=== PATIENT | female | born 1945 | race Caucasian/White ===

== ENCOUNTER → 2017-08-14 | Outpatient (CLI) | payer OTHER ==
[~2017-08-14] MED LIST: ASPI81TA28 PO; BNC5 PO; CALCTAB5 PO; DILT120C68 PO; ENOX100I SQ; EZET10TA63 PO; FLUO20CA35 PO; FRS/40 PO; HYDR-5688 PO; INSDGI SC; MAGN400T6 PO; NVLGI SC; OMEG10007 PO; POTA20TA16 PO; PRAV80TA PO; PRLSR20 PO; TRAZ50TA35 PO; TYLOTC500 PO; WARF2.5T8 PO; WARF5TAB7 PO
[2017-08-15 06:36] LABS: ESTIMATED AVERAGE GLUCOSE 143 mg/dl; HA1C FLAG Normal (Normal)
== END | disposition home or self-care (01) ==
LOC: C.LABPBG 13:53
PROVIDERS: ATTEND Nurse Practitioner Family
DX: E11.65 Type 2 diabetes mellitus with hyperglycemia (principal)

== ENCOUNTER → 2018-04-14 | Outpatient (CLI) | payer OTHER ==
[~2018-04-14] MED LIST changes: +POTA-639 PO; -POTA20TA16 PO
[2018-04-15 06:14] LABS: HEMOGLOBIN A1C 7.3 % (4.5-5.6)
== END | disposition home or self-care (01) ==
LOC: C.LABPBG 13:06
PROVIDERS: ATTEND Nurse Practitioner Family
DX: E11.65 Type 2 diabetes mellitus with hyperglycemia (principal)

== ENCOUNTER 2023-09-01 20:30 | Inpatient (IN) ==
[2023-09-01] MEDS ORDERED: Patient's HEIGHT &/or WEIGHT Needed SCH (20:34)
[2023-09-01 21:12] LABS: Base Excess VBG 5.5 mEq/L; HCO3 VBG 32 mmol/L; Oxygen Saturation VBG 72.5 %; PCO2 VBG 51 mmHg (38-50); PO2 VBG 42 mmHg
[2023-09-01] MEDS ORDERED: ALBUT/IPRATROP 3MG/0.5MG NEB 3 ML VIAL NEB STA (21:18)
--- NOTE | 2023-09-01 21:19 | Emergency Department Note ---
Impression & Plan Acute dyspnea, Acute hyperkalemia, JORGE (acute kidney injury) ED Provider Note HISTORY OF PRESENT ILLNESS: Patient is an 78-year-old female presenting with shortness of breath. Patient reports that she has been feeling more short of breath over the last few days, but tonight her shortness of breath got significantly worse. She has had a cough productive of white sputum. Denies any chest pain with the shortness of breath. Reports that she wears 2 to 4 L at baseline but has been wearing 3 for the last few days. Denies any recent steroid use. Denies any recent antibiotic use. Denies any DVT or PE history. She is on Coumadin for history of mitral valve replacement. She reports she tested positive on a home COVID test 3 days ago. Denies any fevers. Denies any recent sick contact exposures. ROS: as above PHYSICAL EXAM: Constitutional: Patient appears in no acute distress. HENT: Head: Normocephalic and atraumatic. Eyes: EOMI, PERRL Mouth/Throat: Mucous membranes moist. Neck: Trachea midline. Neck supple. Cardiovascular: RRR, No rubs or gallops. Intact distal pulses. Pulmonary/Chest: No respiratory distress. Breath sounds clear and equal bilaterally. Coarse breath sounds bilaterally. Abdominal: Abdomen soft, no tenderness, rebound or guarding. Musculoskeletal: No edema, tenderness or deformity noted. Skin: Warm and dry. No rash, erythema, pallor or cyanosis Psychiatric: Appropriate mood and affect for situation. Neurological: Alert and keenly responsive. CN II-XII grossly intact, moving all extremities equally and fully. MDM: - Vitals signs stable. - History obtained via patient. Patient presents with shortness of breath. Patient reports has been feeling progressively more short of breath in the last few days. Reports that tonight her breathing was significantly worse. Has had a cough productive of white sputum. Denies any DVT or PE history. She is on Coumadin. She states she tested positive for COVID on a home test 3 days ago. Denies any recent sick contact exposures. She denies any recent antibiotic or steroid use. Denies any chest pain. - Chronic conditions affecting care: Afib; CAD (s/p PCI); cardiac pacemaker; chronic diastolic heart failure - Differential diagnoses include, but are not limited to: Congestive heart failure; acute coronary syndrome; COPD/asthma exacerbation; pulmonary edema; pulmonary embolism; pneumonia; pneumothorax; viral syndrome - Order placed for continuous cardiac monitoring. At this time, monitor showed rate of 70 bpm with paced rhythm, per my interpretation. - External medical records reviewed. Heart failure visit note dated 09/09/2019 was reviewed. Patient follows in their clinic for chronic diastolic heart failure. She is on 80 mg of Lasix daily. - EKG interpreted by myself showed ventricular paced rhythm. - Laboratory workup interpreted by myself showed normal WBC; hyperkalemia (K 5.3); JORGE (Cr 1.68 - baseline around 1.0); normal troponin; elevated BNP (166) - CXR showed some pulmonary vascular congestion, per my interpretation - POC COVID negative. Biofire ordered. - Patient given duoneb and 125 mg IV solumedrol in ER. - Patient's oxygen requirement increased while in the emergency department and she was wearing 7L via face mask. - Discussion was had with lawn caretaker about patient's case and need for admission - Hospitalist, Dr. Orellana, consulted for admission - Patient admitted to [facility] for further evaluation and management. ASSESSMENT AND PLAN: Diagnosis: dyspnea; JORGE; hyperkalemia Plan: admit Past Med/Surg History Medical History (Updated 09/02/23 @ 00:10 by Tracy Flor MD) Presence of arterial stent Diabetes mellitus Atrial fibrillation Chronic renal failure, stage 3 (moderate) Pacemaker Surgical History (Updated 12/09/19 @ 11:15 by Liliana Gupta PA-C) Previous back surgery H/O: section History of cholecystectomy Hx of CABG H/O: hysterectomy H/O mitral valve replacement Family History (Updated 12/09/19 @ 11:17 by Liliana Gupta PA-C) Mother Hypertension Hyperlipemia Diabetes Stroke Father Stroke Social History Smoking Status: Former smoker Tobacco Type: Cigarettes Preferred Language: Portuguese Feels Safe at Home: Yes Allergies Allergies Allergy/AdvReac Type Severity Reaction Status Date / Time morphine Allergy Unknown vomiting Unverified 09/09/19 16:12 oxycodone Allergy Unknown vomiting Unverified 09/09/19 16:12 adhesive tape AdvReac Unknown Verified 09/09/19 16:12 codeine AdvReac Unknown Verified 09/09/19 16:12 aspirin AdvReac Verified 09/09/19 16:12 Bandaid AdvReac Unknown Uncoded 09/09/19 16:12 Darvocet-N 50 TABS AdvReac Uncoded 09/09/19 16:12 Home Meds Home Medications Medication Instructions Recorded Confirmed fluoxetine 20 mg capsule 20 mg PO DAILY 12/12/18 09/09/19 hydrocodone 5 mg-acetaminophen 325 1 tab PO TID PRN Pain 12/12/18 09/09/19 mg tablet insulin aspart U-100 100 unit/mL 10 units subcut ACHS 12/12/18 09/09/19 subcutaneous solution (Novolog U-100 Insulin aspart) lisinopril 10 mg tablet 10 mg PO DAILY 12/12/18 09/09/19 magnesium oxide 400 mg PO BID 12/12/18 09/09/19 naloxegol 25 mg tablet (Movantik) 25 mg PO DAILY 12/12/18 09/09/19 omeprazole 20 mg capsule,delayed 20 mg PO DAILY 12/12/18 09/09/19 release potassium chloride 20 mEq 20 mg PO DAILY 12/12/18 09/09/19 tablet,extended release(part/cryst) trazodone 50 mg tablet 50 mg PO DAILY 12/12/18 09/09/19 calcium carbonate [Calcium 600] See Rx Instructions PO BID 04/20/19 09/09/19 multivitamin (Multiple Vitamins 1 tab PO DAILY 04/20/19 09/09/19 tablet) omega-3 fatty acids [Fish Oil] See Rx Instructions PO BID 09/09/19 09/09/19 vit C-E-zinc [id number] See Rx Instructions PO DAILY 09/09/19 09/09/19 [[facility]] Previous Rx's Medication Instructions Recorded Tresiba FlexTouch U-100 100 38 unit (0.38 mL) subcut HS 30 09/13/19 unit/mL (3 mL) subcutaneous pen days #15 mL (insulin degludec) warfarin 5 mg tablet (Jantoven) 5 mg PO .COMPLEX #90 tabs 12/29/19 furosemide 40 mg tablet 40 mg PO .COMPLEX #300 tabs 03/01/20 diltiazem HCl 120 mg 120 mg PO DAILY #90 caps 09/11/20 capsule,extended release 24 hr (Cartia XT) Results & Data (ED) Vital Signs Vital Signs - 24 hr 09/01/23 20:34 09/01/23 20:51 09/01/23 20:52 Temperature 36.8 C Temperature Source Temporal Artery Scan Pulse Rate 78 84 Pulse Rate [Left Apical] 81 Pulse Rate from SpO2 Sensor Respiratory Rate 18 21 Respiratory Depth Normal Blood Pressure 134/66 Blood Pressure [Right Radial Artery] 147/73 H Blood Pressure Mean 88 Blood Pressure Mean [Right Radial Artery] 97 Pulse Oximetry 92 96 Oxygen Delivery Method Nasal Cannula Nasal Cannula Oxygen Flow Rate 3 3 Sepsis Recent Fever Within 48 Hours No Sepsis New/Unexplained Change in Mental Status No Sepsis Action Taken by Nursing No Action Required Oxygen Flow Rate - Titration Pulse Oximetry Post Tiitration 09/01/23 21:04 09/01/23 22:00 09/01/23 22:30 Temperature Temperature Source Pulse Rate 74 70 Pulse Rate [Left Apical] Pulse Rate from SpO2 Sensor 74 Respiratory Rate 31 H 22 Respiratory Depth Blood Pressure 166/80 H 144/78 H Blood Pressure [Right Radial Artery] Blood Pressure Mean 108 100 Blood Pressure Mean [Right Radial Artery] Pulse Oximetry 97 99 Oxygen Delivery Method Nasal Cannula Nasal Cannula Nebulizer Oxygen Flow Rate 3 7 Sepsis Recent Fever Within 48 Hours Sepsis New/Unexplained Change in Mental Status Sepsis Action Taken by Nursing Oxygen Flow Rate - Titration 3 Pulse Oximetry Post Tiitration 96 09/01/23 23:35 Temperature Temperature Source Pulse Rate Pulse Rate [Left Apical] Pulse Rate from SpO2 Sensor Respiratory Rate Respiratory Depth Blood Pressure Blood Pressure [Right Radial Artery] Blood Pressure Mean Blood Pressure Mean [Right Radial Artery] Pulse Oximetry 96 Oxygen Delivery Method Nasal Cannula Oxygen Flow Rate 3 Sepsis Recent Fever Within 48 Hours Sepsis New/Unexplained Change in Mental Status Sepsis Action Taken by Nursing Oxygen Flow Rate - Titration Pulse Oximetry Post Tiitration Laboratory Data 09/01/23 20:59 09/01/23 20:59 Lab Results 09/01/23 09/01/23 09/01/23 Range/Units 20:59 21:53 22:01 WBC 9.55 (4.8-10.8) K/ul RBC 3.94 L (4.20-5.40) M/uL Hgb 11.5 L (12.0-16.0) g/dl Hct 35.0 L (37.0-47.0) % MCV 88.8 (80.0-100.0) fL MCH 29.2 (25.0-34.0) pg MCHC 32.9 (32.0-36.0) g/dL RDW Std Deviation 47.2 H (36.4-46.3) fL RDW Coeff of Asya 14.6 H (11.5-14.5) % Plt Count 248 (130-400) K/uL MPV 10.2 (9.4-12.4) fL Immature Gran % (Auto) 0.6 % Neut % (Auto) 78.8 % Lymph % (Auto) 9.4 % [place] % (Auto) 10.1 % Eos % (Auto) 0.6 % Baso % (Auto) 0.5 % Neut # (Auto) 7.52 H (1.40-6.50) K/uL Lymph # (Auto) 0.90 L (1.20-3.40) K/uL [place] # (Auto) 0.96 H (0.11-0.59) K/uL Eos # (Auto) 0.06 (0.00-0.50) K/uL Baso # (Auto) 0.05 (0.00-0.20) K/uL Immature Gran # (Auto) 0.06 (0.01-0.20) K/uL PT Cancelled 43.8 H INR Cancelled 4.4 H VBG pH 7.40 (7.36-7.41) VBG pCO2 51 H (38-50) mmHg VBG pO2 42 mmHg VBG HCO3 32 mmol/L VBG O2 Saturation 72.5 % VBG Base Excess 5.5 mEq/L Sodium 135 L (136-145) mmol/L Potassium 5.3 H (3.5-5.1) mmol/L Chloride 98 (98-107) mmol/L Carbon Dioxide 28 (21-32) mmol/L Anion Gap 9 (3-11) BUN 36 H (6-23) mg/dl Creatinine 1.68 H (0.6-1.2) mg/dl Est Cr Clr Drug Dosing Not Reportable Est GFR ( Amer) 32.9 ml/min Est GFR (Non-Af Amer) 28.4 ml/min BUN/Creatinine Ratio 21.4 H (10-20) Glucose 249 H (70-99(Fasting)) mg/dl Calcium 9.1 (8.6-10.3) mg/dl Magnesium 2.0 (1.7-2.4) mg/dl Total Bilirubin 0.6 (0.2-1.0) mg/dl AST 26 (13-39) U/L ALT 14 (7-52) U/L Alkaline Phosphatase 76 (34-104) U/L Troponin I High Sens 11.9 (0-14) pg/ml B-Natriuretic Peptide 166 H (0-100) pg/ml Total Protein 8.1 (6.0-8.3) gm/dl Albumin 4.0 (3.4-5.0) gm/dl Globulin 4.1 H (2.5-4.0) gm/dl Albumin/Globulin Ratio 1.0 (0.9-2) SARS-CoV-2, RNA, NAAT NEGATIVE (NEGATIVE) Administered Medications Discontinued Medications Albuterol (Albut/Ipratrop 3mg/0.5mg Neb 3 Ml Vial) 3 ml NEB NOW STA; Protocol Stop: 09/01/23 21:19 Last Admin: 09/01/23 22:28 Dose: 3 ml Documented By: [facility] Discharge Plan Visit Data Chief Complaint: Shortness of Breath/Dyspnea Stated Complaint: COUGH, DIFFICULTY BREATHING - COVID+ ED Provider: Tracy Flor Discharge Problem: Acute dyspnea, Acute hyperkalemia, JORGE (acute kidney injury) Forms Stand Alone Forms: My [facility] Prescriptions Prescriptions: No Action Tresiba FlexTouch U-100 100 unit/mL (3 mL) insulin pen 38 unit subcut HS 30 Days Qty: 15 1RF warfarin [Jantoven] 5 mg tablet 5 mg PO .COMPLEX Qty: 90 3RF Protocol: Dose Management Protocol Text: Patient Instructed to take: warfarin 5 mg (1 Tab) on WOODS, , TH, SA warfarin 5 mg (0.5 Tab) on MO, WE, FR Additional Instructions: Pt. stated she was taking 2.5mg MWF/5mg all others. will continue the same. Rx Instructions: 5 mg PO 6 days a week, 1/2 tablet on the 7th day; ; furosemide 40 mg tablet 40 mg PO .COMPLEX Qty: 300 3RF Rx Instructions: 80 mg PO QAM, 40MG AT DINNER. MAY TAKE AN ADDITIONAL 40 MG NEEDED FOR WEIGHT GAIN, SWELLING, OR DYSPNEA. diltiazem HCl [Cartia XT] 120 mg capsule,extended release 24hr 120 mg PO DAILY Qty: 90 0RF vit C-E-zinc [id number] See Rx Instructions PO DAILY Rx Instructions: 1 tablet PO daily; calcium carbonate See Rx Instructions PO BID Patient Comments: 1 tablet PO BID; Rx Instructions: 1 tablet PO BID; multivitamin [Multiple Vitamins] tablet 1 tab PO DAILY omega-3 fatty acids See Rx Instructions PO BID Patient Comments: 1 tablet PO DAILY; Rx Instructions: 1 tablet PO twice a day; trazodone 50 mg tablet 50 mg PO DAILY hydrocodone-acetaminophen 5-325 mg tablet 1 tab PO TID PRN (Reason: Pain) potassium chloride 20 mEq tablet,ER particles/crystals 20 mg PO DAILY lisinopril 10 mg tablet 10 mg PO DAILY omeprazole 20 mg capsule,delayed release(DR/EC) 20 mg PO DAILY fluoxetine 20 mg capsule 20 mg PO DAILY Movantik 25 mg tablet 25 mg PO DAILY Novolog U-100 Insulin aspart 100 unit/mL solution 10 units subcut ACHS magnesium oxide 400 mg magnesium Tablet 400 mg PO BID Referrals Referrals: Sheldon Nicole M.D. [Primary Care Provider] -
[2023-09-01 21:21] LABS: Basophils # (auto) 0.05 K/uL (0.00-0.20); Basophils % (auto) 0.5 %; Eosinophils # (auto) 0.06 K/uL (0.00-0.50); Eosinophils % (auto) 0.6 %; Hemoglobin 11.5 g/dl (12.0-16.0); Immature Granulocytes # (auto) 0.06 K/uL (0.01-0.20); Immature Granulocytes % (auto) 0.6 %; Lymphocytes % (auto) 9.4 %; Mean Corpuscular Hemoglobin 29.2 pg (25.0-34.0); Mean Corpuscular Hgb Conc 32.9 g/dL (32.0-36.0); Mean Corpuscular Volume 88.8 fL (80.0-100.0); Mean Platelet Volume 10.2 fL (9.4-12.4); Monocytes # (auto) 0.96 K/uL (0.11-0.59); Monocytes % (auto) 10.1 %; Neutrophils # (auto) 7.52 K/uL (1.40-6.50); Neutrophils % (auto) 78.8 %; Platelet Count 248 K/uL (130-400); RDW Coefficient of Variation 14.6 % (11.5-14.5); RDW Standard Deviation 47.2 fL (36.4-46.3); Red Blood Count 3.94 M/uL (4.20-5.40); White Blood Count 9.55 K/ul (4.8-10.8)
[2023-09-01 21:35] LABS: Alanine Aminotransferase 14 U/L (7-52); Alkaline Phosphatase 76 U/L (34-104); Anion Gap 9 (3-11); Aspartate Aminotransferase 26 U/L (13-39); BUN Creatinine Ratio 21.4 (10-20); Bilirubin,Total 0.6 mg/dl (0.2-1.0); Blood Urea Nitrogen 36 mg/dl (6-23); Calcium 9.1 mg/dl (8.6-10.3); Carbon Dioxide 28 mmol/L (21-32); Chloride 98 mmol/L (98-107); Est GFR (African American) 32.9 ml/min; Est GFR (Non-African American) 28.4 ml/min; Globulin 4.1 gm/dl (2.5-4.0); Glucose 249 mg/dl (70-99(Fasting)); Potassium 5.3 mmol/L (3.5-5.1); Sodium 135 mmol/L (136-145); Total Protein 8.1 gm/dl (6.0-8.3)
[2023-09-01 21:41] LABS: Troponin I High Sensitivity 11.9 pg/ml (0-14)
[2023-09-01 22:45] LABS: INR 4.4 (0.9-1.1); Prothrombin Time 43.8 Seconds (9.0-12.0)
[2023-09-01] MEDS ORDERED: methylPREDNISolone 125 MG/2 ML VIAL IV STA (23:05)
[2023-09-02 00:15] LABS: Adenovirus PCR Not Detected (NotDetected); Bordetella parapertussis PCR Not Detected (NotDetected); Bordetella pertussis PCR Not Detected (NotDetected); Chlamydia pneumoniae PCR Not Detected (NotDetected); Coronavirus 229E PCR Not Detected (NotDetected); Coronavirus CoV-2 (COVID19)PCR Not Detected (NotDetected); Coronavirus HKU1 PCR Not Detected (NotDetected); Coronavirus NL63 PCR Not Detected (NotDetected); Coronavirus OC43PCR Not Detected (NotDetected); Human Metapneumovirus PCR Not Detected (NotDetected); Influenza A PCR Not Detected (NotDetected); Influenza B PCR Not Detected (NotDetected); Mycoplasma pneumoniae PCR Not Detected (NotDetected); Parainfluenza Virus 1 PCR Not Detected (NotDetected); Parainfluenza Virus 2 PCR Not Detected (NotDetected); Parainfluenza Virus 3 PCR Not Detected (NotDetected); Parainfluenza Virus 4 PCR Not Detected (NotDetected); Rhinovirus/Enterovirus PCR Not Detected (NotDetected)
[2023-09-02 00:17] LABS: Respiratory Syncytial VirusPCR DETECTED (NotDetected)
[2023-09-02] MEDS ORDERED: FUROSEMIDE 40 MG/4 ML VIAL IV ONE (03:48)
--- NOTE | 2023-09-02 03:48 | History & Physical Report ---
Date of Service September 02, 2023 Assessment & Plan (1) SOB (shortness of breath): Plan: 78-year-old female with past medical history significant for type 2 diabetes, hyperlipidemia, chronic respiratory failure on home oxygen 2 to 4 L 24 / 7, history of COPD, paroxysmal atrial fibrillation, s/p pacemaker, chronic diastolic CHF, history of CAD, hypertension, obesity, drug-induced constipation, GERD, degenerative's disease, chronic pain syndrome, history of depression, history of mitral valve replacement with mechanical valve presents with ongoing shortness of breath. Shortness of breath RSV positive Most likely COPD exasperation Possible acute on chronic diastolic CHF COPD exasperation from RSV Acute on chronic respiratory failure Will do IV Solu-Medrol 40 mg 3 times daily, DuoNebs [id number] and as needed Continue oxygen supplementation Close monitor Possible acute on chronic diastolic CHF At home on p.o. Lasix [address] on IV Lasix 40 twice daily Daily weights and I's and O's Follow echo RSV positive Doppler precautions Supportive care Patient states he was COVID-positive at home And was prescribed Paxlovid But here rapid test and BioFire negative We will hold Paxlovid Type 2 diabetes Continue home long-acting insulin Insulin sliding scale We will monitor blood sugars and follow HbA1c levels Glycemic pharmacy consulted as patient is currently on steroids Close monitor History of mechanical mitral valve replacement On Coumadin INR 4.4. Will hold Coumadin and monitor PT/INR Hyperkalemia Potassium of 5.3 Will hold the potassium supplements and spironolactone Follow the labs History of paroxysmal atrial fibrillation S/p pacemaker Continue home Cardizem and metoprolol succinate INR supratherapeutic Will monitor History of CAD S/p stenting and CABG On statin, Plavix and beta-lidia Possible JORGE on CKD stage III Baseline creatinine 1.3-1.4 Presented creatinine 1.6 Possibly cardiorenal Follow labs as patient getting IV Lasix History of depression On fluoxetine and trazodone Hyperlipidemia On statin DVT prophylaxis On Coumadin. Coumadin held for INR of 4.4 Follow PT/INR Disposition Med/tele Full code History of Present Illness Chief Complaint: Shortness of breath Primary Care Provider: Sheldon Nicole 78-year-old female with past medical history significant for type 2 diabetes, hyperlipidemia, chronic respiratory failure on home oxygen 2 to 4 L 24 / 7, history of COPD, paroxysmal atrial fibrillation, s/p pacemaker, chronic d iastolic CHF, history of CAD, hypertension, obesity, drug-induced constipation, GERD, degenerative's disease, chronic pain syndrome, history of depression, history of mitral valve replacement with mechanical valve presents with ongoing shortness of breath. Having shortness of breath with cough with yellowish-green phlegm, and she tested positive COVID at home 3 days ago. PCP prescribed Paxlovid. Also prescribed Augmentin for UTI. As the shortness was not getting better she came to the ER today. Denies any headache. No body aches. No fevers. Has some runny nose and sore throat. Appetite is okay. Initially she had diarrhea but that got resolved. Currently no nausea or abdominal pain. Ambulates with a cane. Past medical history. As mentioned above Past surgical history. Cardiac stent placement. Appendectomy. . Cholecystectomy. CABG. Replacement of mitral valve. Total abdominal hysterectomy with removal of tubes. Status post pacemaker. Social history. . Lives with her son. Quit smoking in 2000. Smoked 1 pack a day for 44 years. No alcohol use. No drug use. Family history. Sister had colon cancer. Diabetes. Father has diabetes. Mother had diabetes. Hypertension. Daughter has A-fib and pacemaker. Father had hypertension and stroke. Allergies Allergy/AdvReac Type Severity Reaction Status Date / Time morphine Allergy Unknown vomiting Unverified 09/09/19 16:12 oxycodone Allergy Unknown vomiting Unverified 09/09/19 16:12 adhesive AdvReac Unknown Unknown Verified 09/02/23 04:03 adhesive tape AdvReac Unknown Unknown Verified 09/02/23 04:03 codeine AdvReac Unknown Unknown Verified 09/02/23 04:03 propoxyphene AdvReac Unknown Unknown Verified 09/02/23 04:03 [From Ramila-N] aspirin AdvReac Unknown Verified 09/02/23 04:03 Home Medications Medication Instructions Recorded Confirmed Type amoxicillin 500 mg-potassium 1 tab PO BID 09/02/23 09/02/23 History clavulanate 125 mg tablet atorvastatin 40 mg tablet 40 mg PO DAILY 09/02/23 09/02/23 History clopidogrel 75 mg tablet 75 mg PO DAILY 09/02/23 09/02/23 History diltiazem HCl 120 mg 120 mg PO DAILY 09/02/23 09/02/23 History capsule,extended release 24 hr fluoxetine 20 mg capsule 20 mg PO DAILY 09/02/23 09/02/23 History fluticasone fur. 100 mcg-umeclid 1 inh inhalation DAILY 09/02/23 09/02/23 History 62.5 mcg-vilant 25 mcg inhalat.powder (Trelegy Ellipta) furosemide 40 mg tablet 80 mg PO DAILY 09/02/23 09/02/23 History insulin aspart U-100 100 unit/mL 10 sliding scale dose subcut UD 09/02/23 09/02/23 History subcutaneous solution (Novolog U-100 Insulin aspart) insulin degludec 100 unit/mL (3 42 unit subcut HS 09/02/23 09/02/23 History mL) subcutaneous pen (Tresiba FlexTouch U-100 insulin) metoprolol succinate 50 mg 50 mg PO DAILY 09/02/23 09/02/23 History tablet,extended release 24 hr omeprazole 20 mg capsule,delayed 20 mg PO DAILY 09/02/23 09/02/23 History release potassium chloride 10 mEq 10 meq PO DAILY 09/02/23 09/02/23 History tablet,extended release(part/cryst) spironolactone 25 mg tablet 25 mg PO DAILY 09/02/23 09/02/23 History tiotropium 2.5 mcg-olodaterol 2.5 2 inh inhalation DAILY 09/02/23 09/02/23 History mcg/actuation mist for inhalation (Stiolto Respimat) trazodone 50 mg tablet 50 mg PO HS 09/02/23 09/02/23 History warfarin 2.5 mg tablet 2.5 mg PO UD 09/02/23 09/02/23 History Past Med/Surg History Medical History (Updated 09/02/23 @ 03:41 by Bobby Orellana MD) Presence of arterial stent Diabetes mellitus Atrial fibrillation Chronic renal failure, stage 3 (moderate) Pacemaker Surgical History (Updated 12/09/19 @ 11:15 by Liliana Gupta PA-C) Previous back surgery H/O: section History of cholecystectomy Hx of CABG H/O: hysterectomy H/O mitral valve replacement Family History (Updated 12/09/19 @ 11:17 by Liliana Gutpa PA-C) Mother Hypertension Hyperlipemia Diabetes Stroke Father Stroke Social History Smoking Status: Never smoker Tobacco Type: Cigarettes Hx Alcohol Use: No Hx Substance Use: No Preferred Language: Croatian Communication Ability: Effective Police Officer Crime Prevention Required: No Beliefs That Will Affect Care: None Current Living Situation Comment: son Other Information That Helps Us Care for You: No Feels Safe at Home: Yes Safety Concerns: Feels Safe At This Time Assistive Devices: Cane, Glasses and Walker Review of Systems Review of Systems: All systems reviewed & are unremarkable except as noted in HPI & below Physical Exam Physical Exam: General- Not in distress Head- atraumatic Eyes- PERRL. ENT- oropharynx clear Neck- supple, no JVD. Lungs- clear to auscultation b/l rhonchi and wheezing heard. Heart- regular rhythm; no murmur, no gallop. Abdomen- normal bowel sounds, soft, nontender, no distension. Extremities- mild pretibial edema, no erythema seen. Neuro- alert, oriented x 3; PERRL, no facial palsy; no dysarthria; moves ext remities. Skin- warm & dry Results & Data Results & Data Vital Signs (Past 12 Hours) Vital Signs Temp Pulse Pulse Resp BP BP Pulse Ox 09/02/23 02:00 71 27 H 136/63 96 09/02/23 01:00 77 30 H 135/70 96 09/02/23 00:00 117 H 30 H 134/69 95 09/01/23 23:35 96 09/01/23 22:30 70 22 144/78 H 99 09/01/23 22:00 74 31 H 166/80 H 97 09/01/23 21:04 09/01/23 20:52 81 21 147/73 H 96 09/01/23 20:51 84 09/01/23 20:34 36.8 C 78 18 134/66 92 O2 Del Method O2 Flow Rate 09/02/23 02:00 Nasal Cannula 3 09/02/23 01:00 Nasal Cannula 3 09/02/23 00:00 Nasal Cannula 3 09/01/23 23:35 Nasal Cannula 3 09/01/23 22:30 Nebulizer 7 09/01/23 22:00 Nasal Cannula 3 09/01/23 21:04 Nasal Cannula 09/01/23 20:52 Nasal Cannula 3 09/01/23 20:51 09/01/23 20:34 Nasal Cannula 3 Diagnostic Findings Laboratory Results WBC 9.55 K/ul (4.8-10.8) 09/01/23 20:59 RBC 3.94 M/uL (4.20-5.40) L 09/01/23 20:59 Hgb 11.5 g/dl (12.0-16.0) L 09/01/23 20:59 Hct 35.0 % (37.0-47.0) L 09/01/23 20:59 MCV 88.8 fL (80.0-100.0) 09/01/23 20:59 MCH 29.2 pg (25.0-34.0) 09/01/23 20:59 MCHC 32.9 g/dL (32.0-36.0) 09/01/23 20:59 RDW Std Deviation 47.2 fL (36.4-46.3) H 09/01/23 20:59 RDW Coeff of Asya 14.6 % (11.5-14.5) H 09/01/23 20:59 Plt Count 248 K/uL (130-400) 09/01/23 20:59 MPV 10.2 fL (9.4-12.4) 09/01/23 20:59 Immature Gran % (Auto) 0.6 % 09/01/23 20:59 Neut % (Auto) 78.8 % 09/01/23 20:59 Lymph % (Auto) 9.4 % 09/01/23 20:59 [place] % (Auto) 10.1 % 09/01/23 20:59 Eos % (Auto) 0.6 % 09/01/23 20:59 Baso % (Auto) 0.5 % 09/01/23 20:59 Neut # (Auto) 7.52 K/uL (1.40-6.50) H 09/01/23 20:59 Lymph # (Auto) 0.90 K/uL (1.20-3.40) L 09/01/23 20:59 [place] # (Auto) 0.96 K/uL (0.11-0.59) H 09/01/23 20:59 Eos # (Auto) 0.06 K/uL (0.00-0.50) 09/01/23 20:59 Baso # (Auto) 0.05 K/uL (0.00-0.20) 09/01/23 20:59 Immature Gran # (Auto) 0.06 K/uL (0.01-0.20) 09/01/23 20:59 PT 43.8 Seconds (9.0-12.0) H 09/01/23 21:53 INR 4.4 (0.9-1.1) H 09/01/23 21:53 VBG pH 7.40 (7.36-7.41) 09/01/23 20:59 VBG pCO2 51 mmHg (38-50) H 09/01/23 20:59 VBG pO2 42 mmHg 09/01/23 20:59 VBG HCO3 32 mmol/L 09/01/23 20:59 VBG O2 Saturation 72.5 % 09/01/23 20:59 VBG Base Excess 5.5 mEq/L 09/01/23 20:59 Sodium 135 mmol/L (136-145) L 09/01/23 20:59 Potassium 5.3 mmol/L (3.5-5.1) H 09/01/23 20:59 Chloride 98 mmol/L (98-107) 09/01/23 20:59 Carbon Dioxide 28 mmol/L (21-32) 09/01/23 20:59 Anion Gap 9 (3-11) 09/01/23 20:59 BUN 36 mg/dl (6-23) H 09/01/23 20:59 Creatinine 1.68 mg/dl (0.6-1.2) H 09/01/23 20:59 Est Cr Clr Drug Dosing Not Reportable 09/01/23 20:59 Est GFR ( Amer) 32.9 ml/min 09/01/23 20:59 Est GFR (Non-Af Amer) 28.4 ml/min 09/01/23 20:59 BUN/Creatinine Ratio 21.4 (10-20) H 09/01/23 20:59 Glucose 249 mg/dl (70-99(Fasting)) H 09/01/23 20:59 Calcium 9.1 mg/dl (8.6-10.3) 09/01/23 20:59 Magnesium 2.0 mg/dl (1.7-2.4) 09/01/23 20:59 Total Bilirubin 0.6 mg/dl (0.2-1.0) 09/01/23 20:59 AST 26 U/L (13-39) 09/01/23 20:59 ALT 14 U/L (7-52) 09/01/23 20:59 Alkaline Phosphatase 76 U/L (34-104) 09/01/23 20:59 Troponin I High Sens 11.9 pg/ml (0-14) 09/01/23 20:59 B-Natriuretic Peptide 166 pg/ml (0-100) H 09/01/23 20:59 Total Protein 8.1 gm/dl (6.0-8.3) 09/01/23 20:59 Albumin 4.0 gm/dl (3.4-5.0) 09/01/23 20:59 Globulin 4.1 gm/dl (2.5-4.0) H 09/01/23 20:59 Albumin/Globulin Ratio 1.0 (0.9-2) 09/01/23 20:59 Adenovirus (PCR) Not Detected (NotDetected) 09/01/23 23:19 B. pertussis DNA (PCR) Not Detected (NotDetected) 09/01/23 23:19 B.parapertussis DNA PCR Not Detected (NotDetected) 09/01/23 23:19 C. pneumoniae DNA (PCR) Not Detected (NotDetected) 09/01/23 23:19 Coronavirus OC43 (PCR) Not Detected (NotDetected) 09/01/23 23:19 Coronavirus HKU1 (PCR) Not Detected (NotDetected) 09/01/23 23:19 Coronavirus 229E (PCR) Not Detected (NotDetected) 09/01/23 23:19 SARS-CoV-2 (PCR) Not Detected (NotDetected) 09/01/23 23:19 Coronavirus NL63 (PCR) Not Detected (NotDetected) 09/01/23 23:19 Human Metapneumovir PCR Not Detected (NotDetected) 09/01/23 23:19 Influenza Type A (PCR) Not Detected (NotDetected) 09/01/23 23:19 Influenza Type B (PCR) Not Detected (NotDetected) 09/01/23 23:19 M. pneumoniae (PCR) Not Detected (NotDetected) 09/01/23 23:19 Parainfluenza 1 (PCR) Not Detected (NotDetected) 09/01/23 23:19 Parainfluenza 2 (PCR) Not Detected (NotDetected) 09/01/23 23:19 Parainfluenza 3 (PCR) Not Detected (NotDetected) 09/01/23 23:19 Parainfluenza 4 (PCR) Not Detected (NotDetected) 09/01/23 23:19 RSV (PCR) DETECTED (NotDetected) A* 09/01/23 23:19 Entero/Rhino (PCR) Not Detected (NotDetected) 09/01/23 23:19 SARS-CoV-2, RNA, NAAT NEGATIVE (NEGATIVE) 09/01/23 22:01 ECG Additional Comments: ECG. Ventricular paced rhythm at rate of 86. Code Status & VTE Plan VTE Prophylaxis Plan VTE Prophylaxis will be ordered: Yes
[2023-09-02] MEDS ORDERED: NITROGLYCERIN SL 0.4 MG/TAB TAB SL PRN (03:54)
[2023-09-02] MEDS ORDERED: GLUCOSE 40% GEL 15 GM TUBE PO PRN (03:54)
[2023-09-02] MEDS ORDERED: GLUCOSE 10 TAB/TUBE PO PRN (03:54)
[2023-09-02] MEDS ORDERED: PHARMACY GLYCEMIC MGMT CONSULT PRN (03:54)
[2023-09-02] MEDS ORDERED: ACETAMINOPHEN 325 MG TAB PO PRN ×2 (03:54→04:57)
[2023-09-02] MEDS ORDERED: ALBUT/IPRATROP 3MG/0.5MG NEB 3 ML VIAL NEB PRN (03:54)
[2023-09-02] MEDS ORDERED: DEXTROSE 50% 50 ML SYRINGE IV PRN (03:54)
[2023-09-02] MEDS ORDERED: CARBOHYDRATES FOR HYPOGLYCEMIA PO PRN (03:54)
[2023-09-02] MEDS ORDERED: GLUCAGON FOR INJ 1 MG VIAL SQ PRN (03:54)
[2023-09-02] MEDS: ALBUT/IPRATROP 3MG/0.5MG NEB 3 ML VIAL NEB SCH ×4 (07:05→18:25)
--- NOTE | 2023-09-02 07:14 | XRay Report ---
XR chest 1V portable CLINICAL HISTORY: Dyspnea. COMPARISON STUDY: Chest radiograph December 12, 2018. FINDINGS: Median sternotomy wires, prosthetic cardiac valve and left subclavian pacer/AICD remains in place. Cardiomegaly is unchanged. Elevation of the left hemidiaphragm is unchanged. Linear left basi lar density favors atelectasis or scarring. There is no consolidation to suggest pneumonia. There is mild interstitial thickening. No pneumothorax or pleural effusion is identified. IMPRESSION: Cardiomegaly with interstitial thickening suggestive of mild pulmonary edema. ACT 112: Negative or not required by law. Electronically signed by: Sarbjit Cagle M.D. 09/02/2023 7:12 AM
[2023-09-02] MEDS ORDERED: INSULIN ASPART PER UNIT CHARGE SC SCH (07:30)
[2023-09-02 07:42] LABS: Hematocrit (blood only) 33.1 % (37.0-47.0); Hemoglobin 10.6 g/dl (12.0-16.0); Mean Corpuscular Hemoglobin 28.8 pg (25.0-34.0); Mean Corpuscular Volume 89.9 fL (80.0-100.0); Mean Platelet Volume 10.3 fL (9.4-12.4); Platelet Count 202 K/uL (130-400); RDW Coefficient of Variation 14.6 % (11.5-14.5); Red Blood Count 3.68 M/uL (4.20-5.40); White Blood Count 6.01 K/ul (4.8-10.8)
[2023-09-02] MEDS ORDERED: LANTUS PER UNIT CHARGE SC STA (07:50)
[2023-09-02 08:05] LABS: Basophils # (auto) 0.01 K/uL (0.00-0.20); Basophils % (auto) 0.2 %; Immature Granulocytes # (auto) 0.03 K/uL (0.01-0.20); Immature Granulocytes % (auto) 0.5 %; Lymphocytes # (auto) 0.37 K/uL (1.20-3.40); Lymphocytes % (auto) 6.2 %; Monocytes # (auto) 0.07 K/uL (0.11-0.59); Monocytes % (auto) 1.2 %; Neutrophils # (auto) 5.53 K/uL (1.40-6.50); Neutrophils % (auto) 91.9 %
[2023-09-02 08:09] LABS: BUN Creatinine Ratio 24.1 (10-20); Calcium 8.9 mg/dl (8.6-10.3); Est GFR (African American) 33.4 ml/min; Est GFR (Non-African American) 28.8 ml/min; Magnesium 2.1 mg/dl (1.7-2.4); Potassium 5.4 mmol/L (3.5-5.1)
[2023-09-02 08:10] LABS: INR 3.7 (0.9-1.1)
[2023-09-02] MEDS ORDERED: INSULIN HUMAN REGULAR PER UNIT 5 UNITS in SYRINGE 0 ML IV STA (08:13)
[2023-09-02] MEDS ORDERED: INSULIN HUMAN REGULAR PER UNIT 5 UNITS in SYRINGE 4.95 ML IV ONE (08:30)
[2023-09-02] MEDS ORDERED: NovoLIN-R INSULIN PER UNIT CHARGE IV STA (08:37)
[2023-09-02 08:51] LABS: Estimated Average Glucose 192 mg/dl; Hemoglobin A1C 8.3 % (4.5-5.6)
[2023-09-02] MEDS ORDERED: NON-FORMULARY MEDICATION (Fluticasone-Umeclidin-Vilanter [Trelegy Ellipta] 100-62.5-25 mcg INH SCH (09:00)
[2023-09-02] MEDS: dilTIAZem HCL 120 MG CAPCR PO SCH (09:00)
[2023-09-02] MEDS ORDERED: LANTUS PER UNIT CHARGE SC SCH (09:00)
[2023-09-02] MEDS: FUROSEMIDE 40 MG/4 ML VIAL IV SCH ×2 (09:59→18:27)
[2023-09-02] MEDS: FLUTICASONE FUROATE 100MCG 14 PUFFS/INHALER INH SCH (10:01)
[2023-09-02] MEDS: FLUoxetine HCL 20 MG CAP PO SCH (10:01)
[2023-09-02] MEDS: UMECLIDINIUM/VILANTEROL 62.5/25MCG 7 PUFFS/INHALER INH SCH (10:02)
[2023-09-02] MEDS: methylPREDNISolone 40 MG in SYRINGE 0 ML IV SCH ×3 (10:03→22:15)
[2023-09-02] MEDS: PANTOprazole 40 MG TAB PO SCH (10:04)
[2023-09-02] MEDS: METOPROLOL SUCC 50MG EXT REL TAB PO SCH (10:04)
[2023-09-02] MEDS: BENZONATATE 100 MG CAPSULE PO SCH ×3 (10:05→22:15)
[2023-09-02] MEDS: AMOXICILLIN/CLAVULANATE 500 MG TAB PO SCH ×2 (10:05→22:15)
[2023-09-02] MEDS: CLOPIDOGREL BISULFATE 75 MG TAB PO SCH (10:11)
[2023-09-02 10:26] LABS: Appearance Urine Clear (Clear); Bacteria Urine Automated Negative (Negative); Bilirubin Urine Negative (Negative); Blood Urine Negative (Negative); Color Urine Yellow; Glucose Urine UA 3+ (Negative); Ketones Urine Negative (Negative); Leukocyte Esterase Urine 1+ (Negative); Nitrite Urine Negative (Negative); Protein Urine Trace (Negative); RBC Urine Automated 0-4 /hpf (0-4); Specific Gravity Urine 1.011 (1.000-1.030); Urobilinogen Urine Negative (Negative); WBC Urine Automated >30 /hpf (0-5)
[2023-09-02] MEDS ORDERED: STAT IV Infusion **Titration per Protocol STA (11:50)
[2023-09-02] MEDS ORDERED: INSULIN PROTOCOL GOAL RANGE ONE (11:50)
[2023-09-02] MEDS ORDERED: SEVERE STRESS LEVEL ONE (11:50)
--- NOTE | 2023-09-02 11:57 | Electrocardiogram Report ---
Test Reason : Blood Pressure : / mmHG Vent. Rate : 086 BPM Atrial Rate : 086 BPM P-R Int : 000 ms QRS Dur : 166 ms QT Int : 446 ms P-R-T Axes : 000 -74 101 degrees QTc Int : 533 ms Ventricular-paced rhythm Abnormal ECG When compared with ECG of 12-DEC-2018 15:51, Vent. rate has increased BY 8 BPM Confirmed by John Paul Castillo ([id number] on 09/02/2023 11:56:36 AM Referred By: Sheldon Nicole Confirmed By:Mike Castillo
[2023-09-02] MEDS ORDERED: INSULIN REGULAR 250 UNITS in SODIUM CHLORIDE 0.9% 247.5 ML IV SCH (12:00)
[2023-09-02] MEDS ORDERED: NovoLIN-R BOLUS FROM BAG IV ONE (12:00)
--- NOTE | 2023-09-02 12:25 | Pharmacy Report ---
Pharmacy Glycemic Short Note 2 - Date of Service September 02, 2023 - Glycemic Short BSG Results (Last 24 hours): 09/01/23 09/02/23 09/02/23 20:59 07:07 07:21 Glucose 249 H 432 H* POC Glucose 409 H* 09/02/23 09/02/23 09:56 11:39 Glucose POC Glucose 473 H* 473 H* OUTPATIENT ANTIDIABETIC REGIMEN: * Tresiba 42 units Hs, Novolog 10 units with breakfast + 10 units with supper * A1c 8.3% 09/02/23 ASSESSMENT: * Patient admitted with RSV, COPD exacerbation, received 125 mg IV solumedrol and continuing on 40 mg IV TID * BSG elevated this morning 409 mg/dL- ordered 10 units IV insulin + 40 units lantus + Novolog * BSG 473 mg/dL at 1130- discussed with hospitalist, will proceed with insulin infusion as patient will remain on steroids PLAN FOR INPATIENT GLYCEMIC CONTROL: * Begin insulin infusion at 3.9 units/hr; Goal Range 110-180 mg/dL * Bolus insulin * Nutritional / Prandial insulin per carb ratio of 1 unit per 5 grams CHO consumed
--- NOTE | 2023-09-02 14:13 | Communication Note ---
Date of Service: September 02, 2023 Patient seen and examined Reports feeling better with improved SOB Still has wheezing on exam Continue steroid. Plan to change to po in AM Blood glucose is poorly controlled due to steroid being used for COPD exacerbation Started on insulin drip for better glycemic control Continue nebs Supportive care Other plans as detailed in H&P this AM
[2023-09-02] MEDS: INSULIN ASPART PER UNIT CHARGE SC SCH ×3 (14:18→22:05)
[2023-09-02] MEDS ORDERED: NON-FORMULARY MEDICATION (Insulin Degludec [Tresiba Flextouch U-100] 100 unit/mL (3 mL) in SQ SCH (21:00)
[2023-09-02] MEDS: traZODone HCL 50 MG TAB PO SCH (22:15)
[2023-09-03] MEDS: guaiFENesin SUGAR FREE 200 MG/10 ML UDC PO PRN (01:53)
[2023-09-03 04:57] LABS: Basophils # (auto) 0.02 K/uL (0.00-0.20); Basophils % (auto) 0.2 %; Hematocrit (blood only) 31.7 % (37.0-47.0); Hemoglobin 10.3 g/dl (12.0-16.0); Immature Granulocytes # (auto) 0.05 K/uL (0.01-0.20); Immature Granulocytes % (auto) 0.5 %; Lymphocytes # (auto) 0.61 K/uL (1.20-3.40); Lymphocytes % (auto) 6.1 %; Mean Corpuscular Hgb Conc 32.5 g/dL (32.0-36.0); Mean Corpuscular Volume 89.3 fL (80.0-100.0); Mean Platelet Volume 10.4 fL (9.4-12.4); Monocytes # (auto) 0.35 K/uL (0.11-0.59); Monocytes % (auto) 3.5 %; Neutrophils # (auto) 8.96 K/uL (1.40-6.50); Neutrophils % (auto) 89.7 %; Platelet Count 211 K/uL (130-400); RDW Coefficient of Variation 14.1 % (11.5-14.5); RDW Standard Deviation 45.7 fL (36.4-46.3); Red Blood Count 3.55 M/uL (4.20-5.40); White Blood Count 9.99 K/ul (4.8-10.8)
[2023-09-03 05:22] LABS: INR 2.1 (0.9-1.1); Prothrombin Time 21.7 Seconds (9.0-12.0)
[2023-09-03 05:24] LABS: BUN Creatinine Ratio 33.1 (10-20); Calcium 9.3 mg/dl (8.6-10.3); Creatinine Clr Calc Pharmacy 32.8 ml/min; Est GFR (African American) 35.7 ml/min; Est GFR (Non-African American) 30.8 ml/min; Potassium 4.3 mmol/L (3.5-5.1)
[2023-09-03] MEDS: ALBUT/IPRATROP 3MG/0.5MG NEB 3 ML VIAL NEB SCH ×4 (06:50→17:43)
[2023-09-03] MEDS: INSULIN ASPART PER UNIT CHARGE SC SCH ×5 (07:53→21:41)
[2023-09-03] MEDS: PANTOprazole 40 MG TAB PO SCH (08:37)
[2023-09-03] MEDS: METOPROLOL SUCC 50MG EXT REL TAB PO SCH (08:38)
[2023-09-03] MEDS: methylPREDNISolone 40 MG in SYRINGE 0 ML IV SCH ×2 (08:41→21:40)
[2023-09-03] MEDS: FLUoxetine HCL 20 MG CAP PO SCH (08:43)
[2023-09-03] MEDS: dilTIAZem HCL 120 MG CAPCR PO SCH (08:44)
[2023-09-03] MEDS: BENZONATATE 100 MG CAPSULE PO SCH ×3 (08:45→21:39)
[2023-09-03] MEDS: CLOPIDOGREL BISULFATE 75 MG TAB PO SCH (08:45)
[2023-09-03] MEDS: AMOXICILLIN/CLAVULANATE 500 MG TAB PO SCH ×2 (08:46→21:39)
[2023-09-03] MEDS: FUROSEMIDE 40 MG/4 ML VIAL IV SCH ×2 (08:47→18:24)
[2023-09-03] MEDS ORDERED: LANTUS PER UNIT CHARGE SC ONE (09:00)
[2023-09-03] MEDS: FLUTICASONE FUROATE 100MCG 14 PUFFS/INHALER INH SCH (11:01)
[2023-09-03] MEDS: UMECLIDINIUM/VILANTEROL 62.5/25MCG 7 PUFFS/INHALER INH SCH (11:01)
[2023-09-03] MEDS ORDERED: INSULIN HUMAN REGULAR PER UNIT 10 UNITS in SYRINGE 9.9 ML IV ONE (12:45)
[2023-09-03] MEDS ORDERED: NovoLIN-R INSULIN PER UNIT CHARGE IV ONE (12:45)
--- NOTE | 2023-09-03 14:08 | Pharmacy Report ---
Pharmacy Glycemic Short Note 2 - Date of Service September 03, 2023 - Glycemic Short BSG Results (Last 24 hours): 09/02/23 09/02/23 09/02/23 14:21 15:06 16:03 Glucose POC Glucose 420 H* 417 H* 408 H* 09/02/23 09/02/23 09/02/23 17:05 18:14 19:08 Glucose POC Glucose 395 H* 377 H* 359 H* 09/02/23 09/02/23 09/02/23 20:14 21:30 22:21 Glucose POC Glucose 322 H* 216 H 133 H 09/02/23 09/03/23 09/03/23 23:27 00:26 02:07 Glucose POC Glucose 89 131 H 207 H 09/03/23 09/03/23 09/03/23 03:19 04:31 05:26 Glucose 158 H POC Glucose 197 H 144 H 09/03/23 09/03/23 09/03/23 06:31 07:34 08:43 Glucose POC Glucose 108 H 115 H 184 H 09/03/23 09/03/23 09/03/23 09:38 11:05 12:11 Glucose POC Glucose 241 H 327 H* 362 H* 09/03/23 13:23 Glucose POC Glucose 338 H* OUTPATIENT ANTIDIABETIC REGIMEN: * Tresiba 42 units Hs, Novolog 10 units with breakfast + 10 units with supper * A1c 8.3% 09/02/23 ASSESSMENT: 09/03/23 * Patient was started on insulin infusion yesterday with drip rates ranging from 4-26 units/hr. Around midnight the drip was held and restarted at 10 units/hr. This continued for for several hours until 0600 when the drip was held again. * The patient received 40 units of Lantus yesterday. Will give 70 units today (full weight-based stress of 3 -52 units-- plus half of her home dose). * Tighten Novolog significantly. Patient received 30 units with breakfast. * With lunch BSG of 362 mg/dL - gave 10 units IV bolus (K > 4) + tightened Novolog again. Overnight checks added. * Spoke with provider and he was agreeable to reduce steroids back to BID. BACKGROUND * Patient admitted with RSV, COPD exacerbation, received 125 mg IV solumedrol and continuing on 40 mg IV TID * BSG elevated this morning 409 mg/dL- ordered 10 units IV insulin + 40 units lantus + Novolog * BSG 473 mg/dL at 1130- discussed with hospitalist, will proceed with insulin infusion as patient will remain on steroids PLAN FOR INPATIENT GLYCEMIC CONTROL: * Basal insulin * Lantus 70 units SQ x 1 then reassess tomorrow * Bolus insulin * NovoLog per scale ACHS or Q6hrs while NPO * Goal Range: Low 110 mg/dL - High 140 mg/dL * Correction Factor: 10 mg/dL/unit * Nutritional / Prandial insulin per carb ratio of 1 unit per 2 grams CHO consumed Thank you.
--- NOTE | 2023-09-03 15:12 | Hospitalist Progress Note ---
Date of Service September 03, 2023 Assessment & Plan (1) SOB (shortness of breath): Plan: 78-year-old female with past medical history significant for type 2 diabetes, hyperlipidemia, chronic respiratory failure on home oxygen 2 to 4 L , history of COPD, paroxysmal atrial fibrillation, s/p pacemaker, chronic diastolic CHF, history of CAD, hypertension, obesity, drug-induced constipation, GERD, degenerative's disease, chronic pain syndrome, history of depression, history of mitral valve replacement with mechanical valve presented 09/02 with ongoing shortness of breath. She is being managed for the following: Shortness of breath Acute exacerbation of COPD URTI with RSV -droplet precaution, supportive care. Patient presenting with shortness of breath and productive cough. Most likely COPD exacerbation secondary to RSV infection. RSV positive at admission, admitting CXR with mild pulmonary edema. Patient started on Solu-Medrol 40 mg 3 times daily, resumed home Augmentin at admission. Will taper down Solu-Medrol to twice daily, continue with as needed and RTC nebs. Continue with home inhalers. Possible mild acute on chronic diastolic CHF Patient presented with shortness of breath and admitting CXR with mild pulmonary edema Patient takes Lasix 80 mg daily and Aldactone at home. also KCL supplement. Will continue with IV Lasix 40 mg twice daily, to p.o. Lasix likely tomorrow. Strict I's and O's, patient reports improving shortness of breath. Resume Aldactone, continue to hold potassium supplement due to hyperkalemia noted earlier. Monitor and replete electrolytes as appropriate. T2DM: Uncontrolled sugar levels due to need for steroid. Glycemic pharmacy on board, managing. Appreciate. History of mechanical mitral valve replacement History of paroxysmal A-fib status post pacemaker Continue home Cardizem and metoprolol succinate. INR supratherapeutic at presentation, 2.1 today, resume Coumadin 09/03. Follow PT/INR. Other chronic medical conditions: Continue with/resume home meds as and when able. CAD: Status post stenting and CABG. Continue with home statin, Plavix, beta- lidia. CKD stage III: Baseline creatinine around 1.6, admitting creatinine closer to baseline creatinine. Continue to monitor. Depression: Continue with home paroxetine and trazodone Hyperlipidemia: Continue with home statin DVT prophylaxis: Patient on Coumadin, follow PT/INR Disposition: Med/tele. PT/OT, CM to assist with DC planning. Full code Admission and Anticipated Discharge Date Admission Date: September 02, 2023 Subjective Patient was seen and examined at bedside. Patient was lying in bed, getting breathing treatment, resting comfortably, not in any acute distress. Patient denies any new acute event overnight. Patient reports improving shortness of breath and cough, reports sputum color getting better. Patient denies any headache or dizziness or chest pain. Physical Exam Physical Exam: GENERAL: Alert and oriented x3. NAD, on breathing Rx. HEENT: No pallor, no icterus. Pupils equal, round and reactive to light. Oral mucosa moist. NECK: No JVD, no neck masses. HEART: S1 and S2 heard. Regular rate and rhythm. No murmur, no gallop. RESPIRATORY SYSTEM: Normal AP diameter. No accessory muscle use. b/l wheezing, b/l crackles. ABDOMEN: Soft, bowel sounds present, nontender, no distention. CENTRAL NERVOUS SYSTEM: No facial droop. Speech is clear. Obeys simple commands. Moves extremities. EXTREMITIES: trace ble edema, no erythema seen. Results & Data Results & Data Vital Signs (Past 12 Hours) Vital Signs Pulse Pulse Resp BP BP Pulse Ox Pulse Ox 09/03/23 12:55 79 20 101/60 96 09/03/23 10:32 86 18 95 09/03/23 09:57 70 23 124/56 L 94 09/03/23 07:42 95 09/03/23 07:41 62 21 118/57 L 95 09/03/23 07:30 62 09/03/23 06:51 62 20 99 09/03/23 06:34 67 22 132/67 95 09/03/23 03:19 70 22 118/58 L 94 O2 Del Method O2 Del Method O2 Flow Rate O2 Flow Rate 09/03/23 12:55 Nasal Cannula 3 09/03/23 10:32 Nasal Cannula 2 09/03/23 09:57 Nasal Cannula 3 09/03/23 07:42 Nasal Cannula 3 09/03/23 07:41 Nasal Cannula 3 09/03/23 07:30 09/03/23 06:51 Nasal Cannula 3 09/03/23 06:34 09/03/23 03:19
[2023-09-03] MEDS: WARFARIN SOD 5 MG TAB PO SCH (18:24)
[2023-09-03] MEDS: traZODone HCL 50 MG TAB PO SCH (21:41)
[2023-09-04] MEDS: INSULIN ASPART PER UNIT CHARGE SC SCH ×6 (01:17→21:09)
[2023-09-04 05:31] LABS: Hemoglobin 10.2 g/dl (12.0-16.0); Mean Corpuscular Hgb Conc 32.9 g/dL (32.0-36.0); Mean Corpuscular Volume 88.1 fL (80.0-100.0); Mean Platelet Volume 10.4 fL (9.4-12.4); Platelet Count 247 K/uL (130-400); RDW Coefficient of Variation 14.2 % (11.5-14.5); RDW Standard Deviation 45.5 fL (36.4-46.3); Red Blood Count 3.52 M/uL (4.20-5.40); White Blood Count 9.85 K/ul (4.8-10.8)
[2023-09-04 05:33] LABS: BUN Creatinine Ratio 36.8 (10-20); Calcium 9.4 mg/dl (8.6-10.3); Creatinine Clr Calc Pharmacy 31.5 ml/min; Est GFR (African American) 34.1 ml/min; Est GFR (Non-African American) 29.5 ml/min; Magnesium 2.1 mg/dl (1.7-2.4); Phosphorus 3.4 mg/dl (2.5-4.9); Potassium 4.9 mmol/L (3.5-5.1)
[2023-09-04 05:51] LABS: INR 1.4 (0.9-1.1); Prothrombin Time 15.2 Seconds (9.0-12.0)
[2023-09-04] MEDS: ALBUT/IPRATROP 3MG/0.5MG NEB 3 ML VIAL NEB SCH ×4 (07:13→20:30)
[2023-09-04] MEDS ORDERED: POTASSIUM CHLORIDE 10 MEQ TABCR PO SCH (09:00)
[2023-09-04] MEDS ORDERED: LANTUS PER UNIT CHARGE SC ONE (09:00)
[2023-09-04] MEDS: FUROSEMIDE 40 MG/4 ML VIAL IV SCH ×2 (09:12→17:31)
[2023-09-04] MEDS: UMECLIDINIUM/VILANTEROL 62.5/25MCG 7 PUFFS/INHALER INH SCH (09:12)
[2023-09-04] MEDS: FLUTICASONE FUROATE 100MCG 14 PUFFS/INHALER INH SCH (09:12)
[2023-09-04] MEDS: ATORVASTATIN 40 MG TAB PO SCH (09:13)
[2023-09-04] MEDS: METOPROLOL SUCC 50MG EXT REL TAB PO SCH (09:13)
[2023-09-04] MEDS: SPIRONOLACTONE 25 MG TAB PO SCH (09:13)
[2023-09-04] MEDS: CLOPIDOGREL BISULFATE 75 MG TAB PO SCH (09:13)
[2023-09-04] MEDS: AMOXICILLIN/CLAVULANATE 500 MG TAB PO SCH ×2 (09:13→21:08)
[2023-09-04] MEDS: dilTIAZem HCL 120 MG CAPCR PO SCH (09:13)
[2023-09-04] MEDS: FLUoxetine HCL 20 MG CAP PO SCH (09:13)
[2023-09-04] MEDS: BENZONATATE 100 MG CAPSULE PO SCH ×3 (09:13→21:08)
[2023-09-04] MEDS: PANTOprazole 40 MG TAB PO SCH (09:14)
[2023-09-04] MEDS: methylPREDNISolone 40 MG in SYRINGE 0 ML IV SCH (09:14)
[2023-09-04] MEDS ORDERED: MAGNESIUM HYDROXIDE SUSP 30 ML UDC PO PRN (12:10)
--- NOTE | 2023-09-04 13:22 | Pharmacy Report ---
Pharmacy Glycemic Short Note 2 - Date of Service September 04, 2023 - Glycemic Short BSG Results (Last 24 hours): 09/03/23 09/03/23 09/03/23 13:23 14:24 15:41 Glucose POC Glucose 338 H* 346 H* 263 H 09/03/23 09/03/23 09/04/23 17:39 20:44 01:06 Glucose POC Glucose 153 H 188 H 127 H 09/04/23 09/04/23 09/04/23 03:58 04:39 07:58 Glucose 153 H POC Glucose 151 H 189 H 09/04/23 09/04/23 12:10 12:11 Glucose POC Glucose 349 H* 339 H* OUTPATIENT ANTIDIABETIC REGIMEN: * Tresiba 42 units Hs, Novolog 10 units with breakfast + 10 units with supper * A1c 8.3% 09/02/23 ASSESSMENT: 09/04/23 * Patient's BSGs yesterday were [phone] mg/dL. Patient received 171 units of insulin (70 units of basal and 101 units of bolus + 10 unit IV bolus with lunch). * Patient received Solu Medrol 40 mg IV BID yesterday; changed to 40 mg IV daily today. * Continue Lantus 70 units as fasting 189 mg/dL today. * Continue Novolog as BSGs were reasonable. CR was changed to 5 at dinner yesterday due to significant decrease from lunch to dinner. Tighten back to 3 today. 09/03/23 * Patient was started on insulin infusion yesterday with drip rates ranging from 4-26 units/hr. Around midnight the drip was held and restarted at 10 units/hr. This continued for for several hours until 0600 when the drip was held again. * The patient received 40 units of Lantus yesterday. Will give 70 units today (full weight-based stress of 3 -52 units-- plus half of her home dose). * Tighten Novolog significantly. Patient received 30 units with breakfast. * With lunch BSG of 362 mg/dL - gave 10 units IV bolus (K > 4) + tightened Novolog again. Overnight checks added. * Spoke with provider and he was agreeable to reduce steroids back to BID. BACKGROUND * Patient admitted with RSV, COPD exacerbation, received 125 mg IV solumedrol and continuing on 40 mg IV TID * BSG elevated this morning 409 mg/dL- ordered 10 units IV insulin + 40 units lantus + Novolog * BSG 473 mg/dL at 1130- discussed with hospitalist, will proceed with insulin infusion as patient will remain on steroids PLAN FOR INPATIENT GLYCEMIC CONTROL: * Basal insulin * Lantus 70 units SQ x 1 then reassess tomorrow * Bolus insulin * NovoLog per scale ACHS or Q6hrs while NPO * Goal Range: Low 110 mg/dL - High 140 mg/dL * Correction Factor: 10 mg/dL/unit * Nutritional / Prandial insulin per carb ratio of 1 unit per 3 grams CHO consumed Thank you.
[2023-09-04] MEDS: WARFARIN SOD 5 MG TAB PO SCH (15:23)
--- NOTE | 2023-09-04 17:25 | Hospitalist Progress Note ---
Date of Service September 04, 2023 Assessment & Plan (1) SOB (shortness of breath): Plan: 78-year-old female with past medical history significant for type 2 diabetes, hyperlipidemia, chronic respiratory failure on home oxygen 2 to 4 L , history of COPD, paroxysmal atrial fibrillation, s/p pacemaker, chronic diastolic CHF, history of CAD, hypertension, obesity, drug-induced constipation, GERD, degenerative's disease, chronic pain syndrome, history of depression, history of mitral valve replacement with mechanical valve presented 09/02 with ongoing shortness of breath. She is being managed for the following: Shortness of breath Acute exacerbation of COPD URTI with RSV -droplet precaution, supportive care. Patient presenting with shortness of breath and productive cough. Most likely COPD exacerbation secondary to RSV infection. RSV positive at admission, admitting CXR with mild pulmonary edema. Patient started on Solu-Medrol 40 mg 3 times daily, resumed home Augmentin at admission. Will taper down Solu-Medrol to twice daily, continue with as needed and RTC nebs. Continue with home inhalers. Possible mild acute on chronic diastolic CHF Patient presented with shortness of breath and admitting CXR with mild pulmonary edema Patient takes Lasix 80 mg daily and Aldactone at home. also KCL supplement. Will continue with IV Lasix 40 mg once daily, to p.o. Lasix likely tomorrow. Strict I's and O's, patient reports improving shortness of breath. c/w Aldactone, continue to hold potassium supplement due to hyperkalemia noted earlier. Monitor and replete electrolytes as appropriate. T2DM: Uncontrolled sugar levels due to need for steroid. Glycemic pharmacy on board, managing. Appreciate. History of mechanical mitral valve replacement History of paroxysmal A-fib status post pacemaker Continue home Cardizem and metoprolol succinate. INR supratherapeutic at presentation, resumed Coumadin 09/03. Follow PT/INR. Other chronic medical conditions: Continue with/resume home meds as and when able. CAD: Status post stenting and CABG. Continue with home statin, Plavix, beta- lidia. CKD stage III: Baseline creatinine around 1.6, admitting creatinine closer to baseline creatinine. Continue to monitor. Depression: Continue with home paroxetine and trazodone Hyperlipidemia: Continue with home statin DVT prophylaxis: Patient on Coumadin, follow PT/INR Disposition: Med/tele. PT/OT, CM to assist with DC planning. Full code Admission and Anticipated Discharge Date Admission Date: September 02, 2023 Subjective Patient was seen and examined at bedside. Patient was lying in bed, on 3l O2 via nc, resting comfortably, not in any acute distress. Patient denies any new acute event overnight. Patient reports improving shortness of breath and cough, reports sputum light yellow. Patient denies any headache or dizziness or chest pain. Physical Exam Physical Exam: GENERAL: Alert and oriented x3. NAD, on 3L O2 via NC HEENT: No pallor, no icterus. Pupils equal, round and reactive to light. Oral mucosa moist. NECK: No JVD, no neck masses. HEART: S1 and S2 heard. Regular rate and rhythm. No murmur, no gallop. RESPIRATORY SYSTEM: Normal AP diameter. No accessory muscle use. b/l wheezing, b/l crackles. both improving. ABDOMEN: Soft, bowel sounds present, nontender, no distention. CENTRAL NERVOUS SYSTEM: No facial droop. Speech is clear. Obeys simple commands. Moves extremities. EXTREMITIES: trace ble edema, no erythema seen. Results & Data Results & Data Vital Signs (Past 12 Hours) Vital Signs Temp Pulse Pulse Resp BP Pulse Ox Pulse Ox 09/04/23 17:04 88 09/04/23 17:04 36.8 C 73 18 122/73 96 09/04/23 15:51 79 18 96 09/04/23 11:28 36.7 C 84 18 129/60 94 09/04/23 11:13 61 20 98 09/04/23 11:07 93 09/04/23 10:27 09/04/23 08:03 72 18 135/78 95 09/04/23 08:03 95 09/04/23 07:36 65 09/04/23 07:13 57 L 18 98 O2 Del Method O2 Del Method O2 Flow Rate O2 Flow Rate 09/04/23 17:04 09/04/23 17:04 Nasal Cannula 3 09/04/23 15:51 Nasal Cannula 3 09/04/23 11:28 Nasal Cannula 3 09/04/23 11:13 Nasal Cannula 3 09/04/23 11:07 09/04/23 10:27 Nasal Cannula 3 09/04/23 08:03 Nasal Cannula 3 09/04/23 08:03 Nasal Cannula 3 09/04/23 07:36 09/04/23 07:13 Nasal Cannula 3
[2023-09-04] MEDS: traZODone HCL 50 MG TAB PO SCH (21:11)
[2023-09-05] MEDS: ALBUT/IPRATROP 3MG/0.5MG NEB 3 ML VIAL NEB SCH ×4 (07:30→19:50)
[2023-09-05] MEDS ORDERED: LANTUS PER UNIT CHARGE SC ONE (09:00)
[2023-09-05] MEDS ORDERED: methylPREDNISolone 40 MG in SYRINGE 0 ML IV SCH (09:00)
[2023-09-05] MEDS: FLUTICASONE FUROATE 100MCG 14 PUFFS/INHALER INH SCH (09:11)
[2023-09-05] MEDS: guaiFENesin SUGAR FREE 200 MG/10 ML UDC PO PRN (09:11)
[2023-09-05] MEDS: AMOXICILLIN/CLAVULANATE 500 MG TAB PO SCH ×2 (09:11→20:21)
[2023-09-05] MEDS: ATORVASTATIN 40 MG TAB PO SCH (09:12)
[2023-09-05] MEDS: dilTIAZem HCL 120 MG CAPCR PO SCH (09:12)
[2023-09-05] MEDS: SPIRONOLACTONE 25 MG TAB PO SCH (09:12)
[2023-09-05] MEDS: CLOPIDOGREL BISULFATE 75 MG TAB PO SCH (09:12)
[2023-09-05] MEDS: METOPROLOL SUCC 50MG EXT REL TAB PO SCH (09:12)
[2023-09-05] MEDS: PANTOprazole 40 MG TAB PO SCH (09:12)
[2023-09-05] MEDS: FLUoxetine HCL 20 MG CAP PO SCH (09:13)
[2023-09-05] MEDS: BENZONATATE 100 MG CAPSULE PO SCH ×3 (09:20→20:25)
[2023-09-05 09:21] LABS: Hematocrit (blood only) 33.5 % (37.0-47.0); Mean Corpuscular Hemoglobin 28.9 pg (25.0-34.0); Mean Corpuscular Hgb Conc 32.8 g/dL (32.0-36.0); Mean Corpuscular Volume 87.9 fL (80.0-100.0); Platelet Count 268 K/uL (130-400); RDW Coefficient of Variation 14.3 % (11.5-14.5); RDW Standard Deviation 45.6 fL (36.4-46.3); Red Blood Count 3.81 M/uL (4.20-5.40); White Blood Count 9.56 K/ul (4.8-10.8)
[2023-09-05] MEDS: INSULIN ASPART PER UNIT CHARGE SC SCH ×4 (09:22→21:01)
[2023-09-05] MEDS: UMECLIDINIUM/VILANTEROL 62.5/25MCG 7 PUFFS/INHALER INH SCH (09:23)
[2023-09-05 09:35] LABS: BUN Creatinine Ratio 38.9 (10-20); Calcium 9.4 mg/dl (8.6-10.3); Creatinine Clr Calc Pharmacy 32.5 ml/min; Est GFR (African American) 35.7 ml/min; Est GFR (Non-African American) 30.8 ml/min; Magnesium 2.3 mg/dl (1.7-2.4); Phosphorus 2.8 mg/dl (2.5-4.9); Potassium 4.7 mmol/L (3.5-5.1)
[2023-09-05 09:45] LABS: INR 1.6 (0.9-1.1); Prothrombin Time 16.8 Seconds (9.0-12.0)
[2023-09-05] MEDS: FUROSEMIDE 80 MG TAB PO SCH (10:22)
--- NOTE | 2023-09-05 13:58 | Pharmacy Report ---
Pharmacy Glycemic Short Note 2 - Date of Service September 05, 2023 - Glycemic Short BSG Results (Last 24 hours): 09/04/23 09/04/23 09/05/23 17:01 20:04 08:12 Glucose POC Glucose 274 H 282 H 160 H 09/05/23 09/05/23 08:47 12:15 Glucose 170 H POC Glucose 135 H OUTPATIENT ANTIDIABETIC REGIMEN: * Tresiba 42 units Hs, Novolog 10 units with breakfast + 10 units with supper * A1c 8.3% 09/02/23 ASSESSMENT: 09/05/23 * Patient's BSGs yesterday were [phone] mg/dL. Patient was changed to Solu-Medrol 40 mg IV daily yesterday. * Patient received 172 units of insulin (70 units of basal and 102 units of bolus). * Today's BSGs are 160-135 mg/dL. * Continue Lantus 70 units. * Tightened Novolog this AM- continue. 09/04/23 * Patient's BSGs yesterday were [phone] mg/dL. Patient received 171 units of insulin (70 units of basal and 101 units of bolus + 10 unit IV bolus with lunch). * Patient received Solu Medrol 40 mg IV BID yesterday; changed to 40 mg IV daily today. * Continue Lantus 70 units as fasting 189 mg/dL today. * Continue Novolog as BSGs were reasonable. CR was changed to 5 at dinner yesterday due to significant decrease from lunch to dinner. Tighten back to 3 today. 09/03/23 * Patient was started on insulin infusion yesterday with drip rates ranging from 4-26 units/hr. Around midnight the drip was held and restarted at 10 units/hr. This continued for for several hours until 0600 when the drip was held again. * The patient received 40 units of Lantus yesterday. Will give 70 units today (full weight-based stress of 3 -52 units-- plus half of her home dose). * Tighten Novolog significantly. Patient received 30 units with breakfast. * With lunch BSG of 362 mg/dL - gave 10 units IV bolus (K > 4) + tightened Novolog again. Overnight checks added. * Spoke with provider and he was agreeable to reduce steroids back to BID. BACKGROUND * Patient admitted with RSV, COPD exacerbation, received 125 mg IV solumedrol and continuing on 40 mg IV TID * BSG elevated this morning 409 mg/dL- ordered 10 units IV insulin + 40 units lantus + Novolog * BSG 473 mg/dL at 1130- discussed with hospitalist, will proceed with insulin infusion as patient will remain on steroids PLAN FOR INPATIENT GLYCEMIC CONTROL: * Basal insulin * Lantus 70 units SQ daily * Bolus insulin * NovoLog per scale ACHS or Q6hrs while NPO * Goal Range: Low 110 mg/dL - High 140 mg/dL * Correction Factor: 8 mg/dL/unit * Nutritional / Prandial insulin per carb ratio of 1 unit per 2 grams CHO consumed Thank you.
[2023-09-05] MEDS ORDERED: WARFARIN SOD 2.5 MG TAB PO SCH (16:00)
--- NOTE | 2023-09-05 16:29 | Hospitalist Progress Note ---
Date of Service September 05, 2023 Assessment & Plan (1) SOB (shortness of breath): Plan: 78-year-old female with past medical history significant for type 2 diabetes, hyperlipidemia, chronic respiratory failure on home oxygen 2 to 4 L , history of COPD, paroxysmal atrial fibrillation, s/p pacemaker, chronic diastolic CHF, history of CAD, hypertension, obesity, drug-induced constipation, GERD, degenerative's disease, chronic pain syndrome, history of depression, history of mitral valve replacement with mechanical valve presented 09/02 with ongoing shortness of breath. She is being managed for the following: Shortness of breath Acute exacerbation of COPD URTI with RSV -droplet precaution, supportive care. Patient presenting with shortness of breath and productive cough. Most likely COPD exacerbation secondary to RSV infection. RSV positive at admission, admitting CXR with mild pulmonary edema. Patient started on Solu-Medrol 40 mg 3 times daily, resumed home Augmentin at admission. Will change solu-m to po prednisone from [facility]. continue with as needed and RTC nebs. Continue with home inhalers. Pt reports contiuous improvement. Possible mild acute on chronic diastolic CHF Patient presented with shortness of breath and admitting CXR with mild pulmonary edema Patient takes Lasix 80 mg daily and Aldactone at home. also KCL supplement. to p.o. Lasix from today Strict I's and O's, patient reports improving shortness of breath. c/w Aldactone, continue to hold potassium supplement due to hyperkalemia noted earlier. Monitor and replete electrolytes as appropriate. T2DM: Uncontrolled sugar levels due to need for steroid. Glycemic pharmacy on board, managing. Appreciate. History of mechanical mitral valve replacement History of paroxysmal A-fib status post pacemaker Continue home Cardizem and metoprolol succinate. INR supratherapeutic at presentation, resumed Coumadin 09/03. Follow PT/INR. Other chronic medical conditions: Continue with/resume home meds as and when able. CAD: Status post stenting and CABG. Continue with home statin, Plavix, beta- lidia. CKD stage III: Baseline creatinine around 1.6, admitting creatinine closer to baseline creatinine. Continue to monitor. Depression: Continue with home paroxetine and trazodone Hyperlipidemia: Continue with home statin DVT prophylaxis: Patient on Coumadin, follow PT/INR Disposition: Med/tele. PT/OT, CM to assist with DC planning. likely dc [facility]. Full code Admission and Anticipated Discharge Date Admission Date: September 02, 2023 Subjective Patient was seen and examined at bedside. Patient was lying in bed, on 3l O2 via nc, resting comfortably, not in any acute distress. Patient denies any new acute event overnight. Patient reports improving shortness of breath and cough, reports sputum light yellow. Patient denies any headache or dizziness or chest pain. Reports improvement. Physical Exam Physical Exam: GENERAL: Alert and oriented x3. NAD, on 3L O2 via NC HEENT: No pallor, no icterus. Pupils equal, round and reactive to light. Oral mucosa moist. NECK: No JVD, no neck masses. HEART: S1 and S2 heard. Regular rate and rhythm. No murmur, no gallop. RESPIRATORY SYSTEM: Normal AP diameter. No accessory muscle use. b/l wheezing, b/l crackles. both improving. ABDOMEN: Soft, bowel sounds present, nontender, no distention. CENTRAL NERVOUS SYSTEM: No facial droop. Speech is clear. Obeys simple commands. Moves extremities. EXTREMITIES: trace ble edema, no erythema seen. Results & Data Results & Data Vital Signs (Past 12 Hours) Vital Signs Temp Pulse Pulse Resp BP Pulse Ox O2 Del Method 09/05/23 15:52 36.6 C 74 15 132/75 96 Nasal Cannula 09/05/23 15:44 69 16 96 Nasal Cannula 09/05/23 11:37 36.6 C 85 17 135/61 95 Nasal Cannula 09/05/23 11:00 66 09/05/23 10:58 72 14 98 Nasal Cannula 09/05/23 08:00 09/05/23 08:00 36.6 C 70 17 133/74 98 Nasal Cannula 09/05/23 07:30 70 18 98 Nasal Cannula O2 Del Method O2 Flow Rate 09/05/23 15:52 3 09/05/23 15:44 3 09/05/23 11:37 3 09/05/23 11:00 09/05/23 10:58 3 09/05/23 08:00 Nasal Cannula 09/05/23 08:00 3 09/05/23 07:30 3
[2023-09-05] MEDS: traZODone HCL 50 MG TAB PO SCH (20:25)
[2023-09-06 08:40] LABS: BUN Creatinine Ratio 35.4 (10-20); Calcium 9.4 mg/dl (8.6-10.3); Creatinine Clr Calc Pharmacy 29.3 ml/min; Est GFR (African American) 31.3 ml/min; Potassium 4.7 mmol/L (3.5-5.1)
[2023-09-06] MEDS: ALBUT/IPRATROP 3MG/0.5MG NEB 3 ML VIAL NEB SCH ×2 (08:43→10:21)
[2023-09-06 08:53] LABS: INR 1.9 (0.9-1.1); Prothrombin Time 19.6 Seconds (9.0-12.0)
[2023-09-06] MEDS ORDERED: predniSONE 20 MG TAB PO SCH (09:00)
[2023-09-06] MEDS ORDERED: LANTUS PER UNIT CHARGE SC SCH ×2 (09:00)
[2023-09-06] MEDS: INSULIN ASPART PER UNIT CHARGE SC SCH ×2 (09:44→13:11)
[2023-09-06] MEDS: FLUoxetine HCL 20 MG CAP PO SCH (09:45)
[2023-09-06] MEDS: ATORVASTATIN 40 MG TAB PO SCH (09:45)
[2023-09-06] MEDS: FUROSEMIDE 80 MG TAB PO SCH (09:45)
[2023-09-06] MEDS: SPIRONOLACTONE 25 MG TAB PO SCH (09:45)
[2023-09-06] MEDS: METOPROLOL SUCC 50MG EXT REL TAB PO SCH (09:45)
[2023-09-06] MEDS: AMOXICILLIN/CLAVULANATE 500 MG TAB PO SCH (09:45)
[2023-09-06] MEDS: FLUTICASONE FUROATE 100MCG 14 PUFFS/INHALER INH SCH (09:46)
[2023-09-06] MEDS: CLOPIDOGREL BISULFATE 75 MG TAB PO SCH (09:46)
[2023-09-06] MEDS: UMECLIDINIUM/VILANTEROL 62.5/25MCG 7 PUFFS/INHALER INH SCH (09:46)
[2023-09-06] MEDS: PANTOprazole 40 MG TAB PO SCH (09:46)
[2023-09-06] MEDS: dilTIAZem HCL 120 MG CAPCR PO SCH (09:46)
[2023-09-06] MEDS: BENZONATATE 100 MG CAPSULE PO SCH ×2 (09:55→13:17)
--- NOTE | 2023-09-06 13:19 | Discharge Summary ---
Date of Service September 06, 2023 Admission HPI Per Admitting Provider 78-year-old female with past medical history significant for type 2 diabetes, hyperlipidemia, chronic respiratory failure on home oxygen 2 to 4 L , history of COPD, paroxysmal atrial fibrillation, s/p pacemaker, chronic diastolic CHF, history of CAD, hypertension, obesity, drug-induced constipation, GERD, degenerative's disease, chronic pain syndrome, history of depression, history of mitral valve replacement with mechanical valve presents with ongoing shortness of breath. Having shortness of breath with cough with yellowish-green phlegm, and she tested positive COVID at home 3 days ago. PCP prescribed Paxlovid. Also prescribed Augmentin for UTI. As the shortness was not getting better she came to the ER today. Denies any headache. No body aches. No fevers. Has some runny nose and sore throat. Appetite is okay. Initially she had diarrhea but that got resolved. Currently no nausea or abdominal pain. Ambulates with a cane. Past medical history. As mentioned above Past surgical history. Cardiac stent placement. Appendectomy. . Cholecystectomy. CABG. Replacement of mitral valve. Total abdominal hysterectomy with removal of tubes. Status post pacemaker. Social history. . Lives with her son. Quit smoking in 2000. Smoked 1 pack a day for 44 years. No alcohol use. No drug use. Family history. Sister had colon cancer. Diabetes. Father has diabetes. Mother had diabetes. Hypertension. Daughter has A-fib and pacemaker. Father had hypertension and stroke. Admission Exam Per Admitting Provider General- Not in distress Head- atraumatic Eyes- PERRL. ENT- oropharynx clear Neck- supple, no JVD. Lungs- clear to auscultation b/l rhonchi and wheezing heard. Heart- regular rhythm; no murmur, no gallop. Abdomen- normal bowel sounds, soft, nontender, no distension. Extremities- mild pretibial edema, no erythema seen. Neuro- alert, oriented x 3; PERRL, no facial palsy; no dysarthria; moves extremities. Skin- warm & dry Principal Diagnosis Acute exacerbation of COPD URTI with RSV Possible mild acute on chronic diastolic CHF Discharge Exam GENERAL: Alert and oriented x3. NAD, on 3L O2 via NC HEENT: No pallor, no icterus. Pupils equal, round and reactive to light. Oral mucosa moist. NECK: No JVD, no neck masses. HEART: S1 and S2 heard. Regular rate and rhythm. No murmur, no gallop. RESPIRATORY SYSTEM: Normal AP diameter. No accessory muscle use. no crackles, wheezing has gone down significantly ABDOMEN: Soft, bowel sounds present, nontender, no distention. CENTRAL NERVOUS SYSTEM: No facial droop. Speech is clear. Obeys simple commands. Moves extremities. EXTREMITIES: trace ble edema, no erythema seen. Discharge Data Allergies Allergy/AdvReac Type Severity Reaction Status Date / Time morphine Allergy Unknown vomiting Unverified 09/09/19 16:12 oxycodone Allergy Unknown vomiting Unverified 09/09/19 16:12 adhesive AdvReac Unknown Unknown Verified 09/02/23 04:03 adhesive tape AdvReac Unknown Unknown Verified 09/02/23 04:03 codeine AdvReac Unknown Unknown Verified 09/02/23 04:03 propoxyphene AdvReac Unknown Unknown Verified 09/02/23 04:03 [From [employer]] aspirin AdvReac Unknown Verified 09/02/23 04:03 Consultations 09/02/23 00:08 ED Decision to Admit Stat Hospital Course (1) SOB (shortness of breath): 78-year-old female with past medical history significant for type 2 diabetes, hyperlipidemia, chronic respiratory failure on home oxygen 2 to 4 L , history of COPD, paroxysmal atrial fibrillation, s/p pacemaker, chronic diastolic CHF, history of CAD, hypertension, obesity, drug-induced constipation, GERD, degenerative's disease, chronic pain syndrome, history of depression, history of mitral valve replacement with mechanical valve presented 09/02 with ongoing shortness of breath. She is being managed for the following: Shortness of breath Acute exacerbation of COPD URTI with RSV -droplet precaution, supportive care. Patient presenting with shortness of breath and productive cough. Most likely COPD exacerbation secondary to RSV infection. RSV positive at admission, admitting CXR with mild pulmonary edema. c/w nebs and tapering dose of steroid. Continue with home inhalers. Pt reports contiuous improvement. Patient hemodynamically stable and would like to go home. Possible mild acute on chronic diastolic CHF Patient presented with shortness of breath and admitting CXR with mild pulmonary edema Patient takes Lasix 80 mg daily and Aldactone at home. also KCL supplement. Continue with home medications. Patient to maintain fluid restriction of 1.5 to 2 L a day. Patient has been made aware. Patient to follow-up with her PCP in a week time upon discharge. T2DM: Uncontrolled sugar levels due to need for steroid. Glycemic pharmacy on board, managing. Appreciate. History of mechanical mitral valve replacement History of paroxysmal A-fib status post pacemaker Continue home Cardizem and metoprolol succinate. INR supratherapeutic at presentation, resumed Coumadin 09/03. Follow PT/INR. Other chronic medical conditions: Continue with/resume home meds as and when able. CAD: Status post stenting and CABG. Continue with home statin, Plavix, beta- lidia. CKD stage III: Baseline creatinine around 1.6, admitting creatinine closer to baseline creatinine. Continue to monitor. Depression: Continue with home paroxetine and trazodone Hyperlipidemia: Continue with home statin DVT prophylaxis: Patient on Coumadin, follow PT/INR Disposition: Med/tele. PT/OT, CM to assist with DC planning. likely dc melania. Full code Patient is being discharged to home with home health with following instruction at the point of discharge: Follow-up with your primary care physician within a week time and likely you will need labs CBC/CMP/magnesium/phosphorus. For your COPD exacerbation, you will be discharged on tapering dose of prednison e. Take them as prescribed. For the duration you are on steroid, increase your long-acting insulin by 10 units i.e. 52 units daily. Recommend following up with your diabetic clinic in 3 to 4 days on discharge. Once steroid is done, then you can go back to your prior insulin recommendations or as per your diabetic clinic f/u. You can continue 1 more day of Augmentin therapy upon discharge. Maintain heart healthy diet/less than 2 g sodium intake daily. Maintain fluid restriction of 1.5 to 2 L a day. Take your medications as prescribed. Please make sure that you are able to get your medications today by calling your pharmacy before you leave the hospital so that your treatment continuity is not broken. Home Health Attestation I certify that this patient is under my care and that I, or a physicians media center assistant working with me, had a face to-face encounter that meets the [id number] encounter requirements with this patient. The encounter with the patient was in whole, or in part, for the following medical condition, which is the primary reason for home health care (list medical condition): I certify that, based on my findings, the following services are medically necessary home health services: My clinical findings support the need for the above services because: Further, I certify that my clinical findings support that this patient is homebound (i.e. absences from home require considerable and taxing effort and are for medical reasons or spiritism services or infrequently or of short duration when for other reasons) because: Certification for Home Health Services: Based on the above findings, I certify that this patient is confined to the home and needs intermittent snf care, physical therapy and/or speech therapy or continues to need occupational therapy. The patient is under my care, and I have initiated the establishment of the plan of care. This patient will be followed by a physician who will periodically review the plan of care. Total Time Total Time Spent Total Time Spent (In Minutes): 45 Discharge Plan Discharge Items Patient Disposition: Home - Home Health Services Reason For Visit: COPD EX, RSV Discharge Diagnosis: Acute exacerbation of COPD URTI with RSV Possible mild acute on chronic diastolic CHF Activity: Resume your previous activity Non-emergency contact: Primary Care Provider Call non-emergency contact if: you have any medication questions, your symptoms worsen and your temperature is above 101 Follow-up/Referrals: Sheldon Nicole M.D. [Primary Care Provider] - Diet: Carb Consistent or DM2, Heart Healthy and Low Sodium (2gm) Addtl Attending Provider Instructions: Follow-up with your primary care physician within a week time and likely you will need labs CBC/CMP/magnesium/phosphorus. For your COPD exacerbation, you will be discharged on tapering dose of prednisone. Take them as prescribed. For the duration you are on steroid, increase your long-acting insulin by 10 units i.e. 52 units daily. Recommend following up with your diabetic clinic in 3 to 4 days on discharge. Once steroid is done, then you can go back to your prior insulin recommendations or as per your diabetic clinic f/u. You can continue 1 more day of Augmentin therapy upon discharge. Maintain heart healthy diet/less than 2 g sodium intake daily. Maintain fluid restriction of 1.5 to 2 L a day. Take your medications as prescribed. Please make sure that you are able to get your medications today by calling your pharmacy before you leave the hospital so that your treatment continuity is not broken. Pending Studies at Discharge: No Stand-Alone Forms: My [facility], Smoking Cessation Medications and DC Order Prescriptions: New prednisone 20 mg Tablet 40 mg PO UD Qty: 8 0RF Rx Instructions: 40 mg daily for 2 days, 20 mg daily for 4 days. then stop. benzonatate 100 mg Capsule 100 mg PO TID 5 Days Qty: 15 0RF guaifenesin 100 mg/5 mL Liquid 200 mg PO Q6H PRN (Reason: cough) Qty: 500 0RF Continued furosemide 40 mg tablet 80 mg PO DAILY atorvastatin 40 mg tablet 40 mg PO DAILY trazodone 50 mg tablet 50 mg PO HS metoprolol succinate 50 mg tablet extended release 24 hr 50 mg PO DAILY warfarin 2.5 mg tablet 2.5 mg PO UD Rx Instructions: warfarin 2.5mg po on Friday and Friday and 5mg on all other days. clopidogrel 75 mg tablet 75 mg PO DAILY spironolactone 25 mg tablet 25 mg PO DAILY insulin aspart U-100 [Novolog U-100 Insulin aspart] 100 unit/mL solution 10 sliding scale dose subcut UD Rx Instructions: 10units with breakfast and 10units with supper omeprazole 20 mg capsule,delayed release(DR/EC) 20 mg PO DAILY diltiazem HCl 120 mg capsule,extended release 24hr 120 mg PO DAILY fluoxetine 20 mg capsule 20 mg PO DAILY potassium chloride 10 mEq tablet,ER particles/crystals 10 meq PO DAILY Stiolto Respimat 2.5-2.5 mcg/actuation mist 2 inh INHALATION DAILY Trelegy Ellipta 100-62.5-25 mcg blister with device 1 inh INHALATION DAILY amoxicillin-pot clavulanate 500-125 mg tablet 1 tab PO BID 1 Days Qty: 2 0RF Rx Instructions: 08/30 to 09/06 Changed insulin degludec [Tresiba FlexTouch U-100] 100 unit/mL (3 mL) insulin pen 42 unit SUBCUT DAILY Qty: 15 0RF Discharge Orders: Discharge Order (Routine); Ordered 09/06/23 Ordered By: Sallie Dawkins Admission Data Admit Date/Time: 09/02/23 03:14 Attending Provider: Sallie Dawkins Admit Provider: Bobby Orellana Primary Care Provider: Sheldon Nicole Other Providers: Bobby Orellana
== END 2023-09-06 14:52 | disposition home health service (06) | DRG 190 ==
LOC: ED 20:30 → SUATTDRO 09-02 03:14 → EDINP 09-02 03:14 → 2W 09-03 03:54

== ENCOUNTER 2024-05-11 20:26 | Inpatient (IN) ==
[2024-05-11 21:30] LABS: Albumin Globulin Ratio 1.1 (0.9-2); Albumin Level 3.9 gm/dl (3.4-5.0); BUN Creatinine Ratio 20.3 (10-20); Bilirubin,Total 0.5 mg/dl (0.2-1.0); Calcium 9.4 mg/dl (8.6-10.3); Creatinine Clr Calc Pharmacy 23.2 ml/min; Est GFR (Non-African American) 23.3 ml/min; Globulin 3.4 gm/dl (2.5-4.0); Potassium 4.2 mmol/L (3.5-5.1); Total Protein 7.3 gm/dl (6.0-8.3)
[2024-05-11 21:37] LABS: Basophils # (auto) 0.05 K/uL (0.00-0.20); Basophils % (auto) 0.6 %; Eosinophils % (auto) 2.3 %; Hematocrit (blood only) 36.1 % (37.0-47.0); Hemoglobin 11.8 g/dl (12.0-16.0); Immature Granulocytes # (auto) 0.04 K/uL (0.01-0.20); Immature Granulocytes % (auto) 0.5 %; Lymphocytes # (auto) 2.21 K/uL (1.20-3.40); Lymphocytes % (auto) 25.2 %; Mean Corpuscular Hemoglobin 29.4 pg (25.0-34.0); Mean Corpuscular Hgb Conc 32.7 g/dL (32.0-36.0); Mean Platelet Volume 10.5 fL (9.4-12.4); Monocytes # (auto) 0.82 K/uL (0.11-0.59); Monocytes % (auto) 9.4 %; Neutrophils # (auto) 5.44 K/uL (1.40-6.50); Platelet Count 267 K/uL (130-400); RDW Coefficient of Variation 14.8 % (11.5-14.5); RDW Standard Deviation 48.9 fL (36.4-46.3); Red Blood Count 4.01 M/uL (4.20-5.40); White Blood Count 8.76 K/ul (4.8-10.8)
[2024-05-11 21:38] LABS: Troponin I High Sensitivity 14.1 pg/ml (0-14)
--- NOTE | 2024-05-11 22:50 | Emergency Department Note ---
Impression & Plan Chest pain, CAD (coronary artery disease) ED Provider Note NAME: TOBI KLEIN AGE: 79 SEX: F : 1945 ARRIVES VIA: Ambulance INFORMANT: Patient, ED PROVIDER(S): Kalyan Vargas MD CHIEF COMPLAINT: Chest pain HPI: This is an 79-year-old female history of CAD, COPD, CHF, atrial fibrillation, pacemaker presenting for chest pain. Patient noted 30 minutes of chest pain. She noted it started when she was watching TV. She noted a worsened with walking out to the ambulance. It then improved after sitting in the ambulance. She notes no current pain. No shortness of breath associated. No syncope. This pain felt like pressure in her left/center chest similar to previous CT. ROS: See above HPI for pertinent positives & negatives. A total of 10 systems reviewed and were otherwise negative. PAST MEDICAL HISTORY: See Below PAST SURGICAL HISTORY: See Below FAMILY HISTORY: See Below SOCIAL HISTORY: See Below HOME MEDICATIONS: See Below ALLERGIES: See Below VITALS: See Below PHYSICAL EXAMINATION: General: resting comfortably in no acute distress Head: Normocephalic and atraumatic Eyes: Normal inspection, extraocular muscles intact Ear, nose, throat: Normal external exam Neck: Normal range of motion Respiratory: lungs clear to auscultation bilaterally Cardiovascular: Regular rate/rhythm, no murmur GI: soft, nontender, no guarding or rebound Extremities: nontender, moves all extremities Neuro: The patient awake and alert, appropriately conversive, no focal deficits, symmetric faces Skin: Warm, dry, and intact MEDICAL DECISION MAKING: [This is an 79-year-old female presenting for chest pain. Patient notes pain felt like pressure-like sensation, similar to previous CT. Patient is currently paced. EKG appears similar to previous EKG from [facility] of 2022. Consider ACS, PE, dissection, Pneumonia -Labs reviewed showing a hemoglobin 11.8. Otherwise creatinine elevation 1.97. Patient does have a positive troponin at 14.1, minimally elevated. Lipase also elevated to 213. -Delta troponin remained stable. I discussed with family including daughter, son and they are concerned patient's symptoms and a previous history. They request admission is appropriate patient previous history of ACS, her CAD, COPD, CHF and A-fib with pacemaker. She has moderate high risk. -Patient discussed withl Dr. Orellana, for admission Differential diagnosis: ACS, PE, stable/unstable angina ER treatment provided: See below Independent History obtained from: Son, daughter Diagnostics interpreted by me: ECG: ECG independently interpreted by me with ventricularly paced rhythm, rate of 81, normal axis, normal CT, normal QRS, normal QTc, no ST segment elevations consistent with STEMI criteria, T wave versions in leads II and aVL Cardiac Monitoring: An order was placed for continuous cardiac monitoring. The monitor shows a rate of with rhythm. Laboratory studies: As stated above and show below. Imaging studies: See below. Past Med/Surg History Problem List (Updated 05/12/24 @ 00:49 by Bobby Orellana MD) Chest pain SOB (shortness of breath) JORGE (acute kidney injury) (Acute) Acute hyperkalemia (Acute) Acute dyspnea (Acute) Nonproliferative diabetic retinopathy (Acute) H/O mitral valve replacement (Chronic) Anticoagulant long-term use (Acute) CAD (coronary artery disease) (Acute) Chronic diastolic congestive heart failure (Acute) Diabetic nephropathy associated with type 2 diabetes mellitus (Acute) Dyslipidemia (Acute) Hypertension (Acute) Diabetes mellitus Atrial fibrillation (Chronic) Pacemaker (Chronic) Chronic renal failure, stage 3 (moderate) (Chronic) Labyrinthitis Medical History (Updated 05/12/24 @ 00:49 by Bobby Orellana MD) Presence of arterial stent Surgical History (Updated 10/07/23 @ 00:10 by Fredy Marr) Previous back surgery H/O: section History of cholecystectomy Hx of CABG H/O: hysterectomy Family History (Updated 12/09/19 @ 11:17 by Liliana Gupta PA-C) Mother Hypertension Hyperlipemia Diabetes Stroke Father Stroke Social History Smoking Status: Former smoker Tobacco Type: Cigarettes Smoking End Date: 2000; Hx Alcohol Use: No Hx Substance Use: No Preferred Language: Urdu Communication Ability: Effective Mounter Required: No Beliefs That Will Affect Care: None Current Living Situation: Family Current Living Situation Comment: lives with son Other Information That Helps Us Care for You: No Feels Safe at Home: Yes Safety Concerns: Feels Safe At This Time Assistive Devices: Cane, Glasses, Oxygen - Continuous and Walker Allergies Allergies Allergy/AdvReac Type Severity Reaction Status Date / Time morphine Allergy Unknown vomiting Unverified 05/11/24 22:07 oxycodone Allergy Unknown vomiting Unverified 05/11/24 22:07 adhesive AdvReac Unknown Unknown Verified 05/11/24 22:07 adhesive tape AdvReac Unknown Unknown Verified 05/11/24 22:07 codeine AdvReac Unknown Unknown Verified 05/11/24 22:07 propoxyphene AdvReac Unknown Unknown Verified 05/11/24 22:07 [From RaimlaFrench] aspirin AdvReac Gastrointestinal Verified 05/11/24 22:07 Upset Home Meds Home Medications Medication Instructions Recorded Confirmed atorvastatin 40 mg tablet 40 mg PO QAM 09/02/23 05/11/24 clopidogrel 75 mg tablet 75 mg PO DAILY 09/02/23 05/11/24 diltiazem HCl 120 mg 120 mg PO DAILY 09/02/23 05/11/24 capsule,extended release 24 hr fluoxetine 20 mg capsule 20 mg PO DAILY 09/02/23 05/11/24 fluticasone fur. 100 mcg-umeclid 1 inh inhalation QAM 09/02/23 05/11/24 62.5 mcg-vilant 25 mcg inhalat.powder (Trelegy Ellipta) furosemide 40 mg tablet 80 mg PO QAM 09/02/23 05/11/24 insulin aspart U-100 100 unit/mL 10 sliding scale dose subcut UD 09/02/23 05/11/24 subcutaneous solution (Novolog U-100 Insulin aspart) metoprolol succinate 50 mg 50 mg PO DAILY 09/02/23 05/11/24 tablet,extended release 24 hr omeprazole 20 mg capsule,delayed 20 mg PO DAILYBB 09/02/23 05/11/24 release spironolactone 25 mg tablet 25 mg PO BID 09/02/23 05/11/24 trazodone 50 mg tablet 50 mg PO HS 09/02/23 05/11/24 acetaminophen 325 mg tablet 650 mg PO Q4H PRN Fever Or Pain 05/11/24 05/11/24 (Tylenol) albuterol sulfate 2.5 mg/3 mL 2.5 mg inhalation Q6H PRN 05/11/24 05/11/24 (0.083 %) solution for nebulization Shortness Of Breath Or Wheezing albuterol sulfate 90 mcg/actuation 2 inh inhalation Q4H PRN Shortness 05/11/24 05/11/24 breath activated powder inhaler Of Breath Or Wheezing calcium carbonate 600 mg-vitamin 1 tab PO QAM 05/11/24 05/11/24 D3 5 mcg (200 unit) tablet ezetimibe 10 mg tablet 10 mg PO DAILY 05/11/24 05/11/24 ferrous sulfate 325 mg (65 mg 325 mg PO QAM 05/11/24 05/11/24 iron) tablet insulin degludec 100 unit/mL (3 42 unit subcut HS 05/11/24 05/11/24 mL) subcutaneous pen (Tresiba FlexTouch U-100 insulin) lutein 25 mg-zeaxanthin 5 mg 1 cap PO DAILY 05/11/24 05/11/24 capsule (Ocuvite Lutein) magnesium oxide 400 mg (241.3 mg 400 mg PO DAILY 05/11/24 05/11/24 magnesium) tablet multivitamin 1 tab PO DAILY 05/11/24 05/11/24 omega-3 1,050 ls-uaq-aek-dpa-fish 2 cap PO HS 05/11/24 05/11/24 oil 1,200 mg capsule ([place]-3 (with docosapentaenoic acid)) sennosides 8.6 mg capsule (senna) 8.6 mg PO DAILY PRN Constipation 05/11/24 05/11/24 warfarin 5 mg tablet 5 mg PO [id number] 05/11/24 05/11/24 warfarin 5 mg tablet 10 mg PO [id number] 05/11/24 05/11/24 Results & Data (ED) Vital Signs Vital Signs - 24 hr 05/11/24 20:35 05/11/24 20:38 05/11/24 20:38 Temperature Temperature Source Pulse Rate 87 Pulse Rate [Apical] Pulse Rate from SpO2 Sensor Respiratory Rate Respiratory Effort / Characteristics Respiratory Depth Blood Pressure Blood Pressure [Right Arm] Blood Pressure Mean Blood Pressure Mean [Right Arm] Pulse Oximetry 98 98 Oxygen Delivery Method Nasal Cannula Nasal Cannula Oxygen Flow Rate 3 3 Sepsis Recent Fever Within 48 Hours Sepsis New/Unexplained Change in Mental Status Sepsis Action Taken by Nursing 05/11/24 20:39 05/11/24 20:39 05/11/24 20:39 Temperature 36.8 C 36.8 C Temperature Source Oral Oral Pulse Rate 77 Pulse Rate [Apical] 74 Pulse Rate from SpO2 Sensor Respiratory Rate 20 20 Respiratory Effort / Characteristics Non-Labored Non-Labored Spontaneous Non-Labored Spontaneous Respiratory Depth Normal Normal Normal Blood Pressure 145/74 H Blood Pressure [Right Arm] 145/74 H Blood Pressure Mean 97 Blood Pressure Mean [Right Arm] 97 Pulse Oximetry 97 98 Oxygen Delivery Method Nasal Cannula Nasal Cannula Room Air Oxygen Flow Rate 3 3 Sepsis Recent Fever Within 48 Hours No Sepsis New/Unexplained Change in Mental Status No Sepsis Action Taken by Nursing No Action Required 05/11/24 21:36 05/11/24 22:43 05/11/24 23:03 Temperature Temperature Source Pulse Rate 60 Pulse Rate [Apical] 62 65 Pulse Rate from SpO2 Sensor 60 Respiratory Rate 15 13 17 Respiratory Effort / Characteristics Non-Labored Non-Labored Spontaneous Respiratory Depth Normal Normal Blood Pressure 125/55 L Blood Pressure [Right Arm] 123/58 L 115/42 L Blood Pressure Mean 78 Blood Pressure Mean [Right Arm] 79 66 Pulse Oximetry 98 99 99 Oxygen Delivery Method Nasal Cannula Nasal Cannula Oxygen Flow Rate 3 3 Sepsis Recent Fever Within 48 Hours Sepsis New/Unexplained Change in Mental Status Sepsis Action Taken by Nursing 05/11/24 23:30 05/12/24 00:00 05/12/24 00:24 Temperature Temperature Source Pulse Rate 61 64 Pulse Rate [Apical] Pulse Rate from SpO2 Sensor 61 Respiratory Rate 15 Respiratory Effort / Characteristics Respiratory Depth Blood Pressure 120/58 L 133/56 L Blood Pressure [Right Arm] Blood Pressure Mean 90 81 Blood Pressure Mean [Right Arm] Pulse Oximetry 97 Oxygen Delivery Method Room Air Oxygen Flow Rate Sepsis Recent Fever Within 48 Hours Sepsis New/Unexplained Change in Mental Status Sepsis Action Taken by Nursing Laboratory Data 05/12/24 05:30 05/12/24 05:30 Lab Results 05/11/24 05/11/24 Range/Units 20:39 22:28 WBC 8.76 (4.8-10.8) K/ul RBC 4.01 L (4.20-5.40) M/uL Hgb 11.8 L (12.0-16.0) g/dl Hct 36.1 L (37.0-47.0) % MCV 90.0 (80.0-100.0) fL MCH 29.4 (25.0-34.0) pg MCHC 32.7 (32.0-36.0) g/dL RDW Std Deviation 48.9 H (36.4-46.3) fL RDW Coeff of Asya 14.8 H (11.5-14.5) % Plt Count 267 (130-400) K/uL MPV 10.5 (9.4-12.4) fL Immature Gran % (Auto) 0.5 % Neut % (Auto) 62.0 % Lymph % (Auto) 25.2 % [place] % (Auto) 9.4 % Eos % (Auto) 2.3 % Baso % (Auto) 0.6 % Neut # (Auto) 5.44 (1.40-6.50) K/uL Lymph # (Auto) 2.21 (1.20-3.40) K/uL [place]ison # (Auto) 0.82 H (0.11-0.59) K/uL Eos # (Auto) 0.20 (0.00-0.50) K/uL Baso # (Auto) 0.05 (0.00-0.20) K/uL Immature Gran # (Auto) 0.04 (0.01-0.20) K/uL Sodium 139 (136-145) mmol/L Potassium 4.2 (3.5-5.1) mmol/L Chloride 100 (98-107) mmol/L Carbon Dioxide 32 (21-32) mmol/L Anion Gap 7 (3-11) BUN 40 H (6-23) mg/dl Creatinine 1.97 H (0.6-1.2) mg/dl Est Cr Clr Drug Dosing 23.2 ml/min Est GFR ( Amer) 27.0 ml/min Est GFR (Non-Af Amer) 23.3 ml/min BUN/Creatinine Ratio 20.3 H (10-20) Glucose 140 H (70-99(Fasting)) mg/dl Calcium 9.4 (8.6-10.3) mg/dl Total Bilirubin 0.5 (0.2-1.0) mg/dl AST 23 (13-39) U/L ALT 16 (7-52) U/L Alkaline Phosphatase 76 (34-104) U/L Troponin I High Sens 14.1 H 11.0 (0-14) pg/ml Total Protein 7.3 (6.0-8.3) gm/dl Albumin 3.9 (3.4-5.0) gm/dl Globulin 3.4 (2.5-4.0) gm/dl Albumin/Globulin Ratio 1.1 (0.9-2) Lipase 213 H (11-82) U/L Administered Medications Atorvastatin Calcium (Atorvastatin 40 Mg Tab) 40 mg PO QAM [facility] Stop: 06/11/24 08:59 Last Admin: 05/12/24 08:07 Dose: 40 mg Documented By: TLM Calcium/Vitamin D (Calcium 600mg + Vit D 400 Iu Tab) 1 tab PO QA [facility] Stop: 06/11/24 08:59 Last Admin: 05/12/24 08:07 Dose: 1 tab Documented By: TLM Clopidogrel Bisulfate (Clopidogrel Bisulfate 75 Mg Tab) 75 mg PO DAILY [facility] Stop: 06/11/24 08:59 Last Admin: 05/12/24 08:10 Dose: 75 mg Documented By: EMANUEL Diltiazem HCl (Diltiazem Hcl 120 Mg Capcr) 120 mg PO DAILY [facility] Stop: 06/11/24 08:59 Last Admin: 05/12/24 08:05 Dose: 120 mg Documented By: EMANUEL Ezetimibe (Ezetimibe 10 Mg Tab) 10 mg PO DAILY [facility] Stop: 06/11/24 08:59 Last Admin: 05/12/24 08:05 Dose: 10 mg Documented By: EMANUEL Ferrous Sulfate (Ferrous Sulfate 325 Mg Tab) 325 mg PO QAM [facility] Stop: 06/11/24 08:59 Last Admin: 05/12/24 08:07 Dose: 325 mg Documented By: YAYAM Fluoxetine HCl (Fluoxetine Hcl 20 Mg Cap) 20 mg PO DAILY [facility] Stop: 06/11/24 08:59 Last Admin: 05/12/24 08:10 Dose: 20 mg Documented By: TLMelba Fluticasone Furoate (Fluticasone Furoate 100mcg 14 Puffs/Inhaler) 1 puffs INH DAILY [facility] Stop: 06/11/24 08:59 Last Admin: 05/12/24 08:09 Dose: 1 puffs Documented By: EMANUEL Furosemide (Furosemide 80 Mg Tab) 80 mg PO QAM [facility] Stop: 06/11/24 08:59 Last Admin: 05/12/24 08:06 Dose: 80 mg Documented By: TLM Insulin Aspart (Insulin Aspart Per Unit Charge) 0 units SC Q6 [facility] Stop: 06/11/24 01:55 Last Admin: 05/12/24 05:57 Dose: 5 units Documented By: HNT Co-signed By: RANDY Admin: 05/12/24 02:54 Dose: 4 units Documented By: HNT Co-signed By: MIKEY Magnesium Oxide (Magnesium Oxide 400 Mg Tab) 400 mg PO DAILY [facility] Stop: 06/11/24 08:59 Last Admin: 05/12/24 08:06 Dose: 400 mg Documented By: EMANUEL Metoprolol Succinate (Metoprolol Succ 50mg Ext Rel Tab) 50 mg PO DAILY [facility] Stop: 06/11/24 08:59 Last Admin: 05/12/24 08:08 Dose: 50 mg Documented By: TLMelba Multivitamins (Multivitamin Tab) 1 tab PO DAILY [facility] Stop: 06/11/24 08:59 Last Admin: 05/12/24 08:06 Dose: 1 tab Documented By: EMANUEL Pantoprazole Sodium (Pantoprazole 40 Mg Tab) 40 mg PO DAILYBB [facility] Stop: 06/11/24 06:29 Last Admin: 05/12/24 05:58 Dose: 40 mg Documented By: MAXWELLT Spironolactone (Spironolactone 25 Mg Tab) 25 mg PO BID17 [facility] Stop: 06/11/24 08:59 Last Admin: 05/12/24 08:08 Dose: 25 mg Documented By: EMANUEL Umeclidinium/Vilanterol (Umeclidinium/Vilanterol 62.5/25mcg 7 Puffs/Inhaler) 1 puffs INH DAILY [facility] Stop: 06/11/24 08:59 Last Admin: 05/12/24 08:09 Dose: 1 puffs Documented By: EMANUEL Imaging Data Radiologist's Impression: Chest X-Ray 05/11/24 20:29 SINGLE VIEW CHEST CLINICAL HISTORY: Atypical chest pain FINDINGS: An AP, portable, upright chest radiograph is compared to study dated 09/01/2023. The patient is status post midline sternotomy and cardiac valve surgery. A 3-lead cardiac AICD is unchanged in position. The heart is enlarged noting atherosclerotic calcification of the thoracic aorta. There is mild pulmonary vascular congestion. Chronic interstitial thickening is similar to previous. There is bibasilar scarring/atelectasis. No large pleural effusion or pneumothorax is seen. The skeletal structures are osteopenic. The bony thorax is grossly intact. IMPRESSION: 1. Cardiomegaly and AICD with mild pulmonary vascular congestion. 2. No airspace consolidation or large pleural effusion is identified. ACT 112: Negative or not required by law. Electronically signed by: Augustine Mccoy M.D. 05/12/2024 6:59 AM Discharge Plan Visit Data Chief Complaint: Cardiac Assessment Stated Complaint: PRESSURE IN CHEST X30 MIN. BETTER NOW ED Provider: Kaylan Vargas Discharge Problem: Chest pain, CAD (coronary artery disease) Patient Disposition: Admitted As Inpatient Discharge Instructions Interventions: ED Discharge Assessment Last Done: 05/12/24 01:27
--- NOTE | 2024-05-12 00:45 | History & Physical Report ---
Date of Service May 12, 2024 Assessment & Plan (1) Chest pain: Plan: 79-year-old female with past medical history significant for type 2 diabetes, CKD stage III, hyperlipidemia, history of hypokalemia, chronic respiratory failure with hypoxia on home oxygen 3 L 31/03, subclinical hypothyroidism, COPD, paroxysmal atrial fibrillation, chronic diastolic CHF, history of CAD s/p stents, morbid obesity, drug-induced constipation, GERD, degenerative disc disease, osteoporosis, chronic pain syndrome, depression, history of mitral valve replacement with mechanical valve, who lives at home with her son and family and ambulates mostly with a cane comes because of chest pain. Around 7 PM patient noticed chest pain in central chest radiating to the back about 5/10 in severity. Patient was sitting when she had chest pain and it lasted for about half an hour to 40 minutes. And when she walked to the EMS the chest pain returned but subsided since she is resting. Currently no chest pain. During the episode she was nauseous. She is always short of breath because of COPD. Lately she is having headaches. Vision is okay. No earache. No runny nose. No sore throat. Appetite is not great. States lost few pounds. No abdominal pain. Last night she had lot of diarrhea and she took Imodium. No recent use of antibiotics. Patient thinks she has UTI as she having increased frequency and burning micturition. Denies any fevers. Currently resting comfortably and hemodynamically stable. Family in the room. Chest pain Currently resolved Initial troponin 14 and repeat 11 Will follow serial enzymes and echo Telemetry N.p.o. Cardiology consult in a.m. for further recommendations History of CAD s/p stents On statin, Plavix, and metoprolol succinate Chronic respiratory failure on home oxygen 3 L History of COPD Continue home inhalers Type 2 diabetes Sliding scale If patient still in the hospital and still n.p.o. will cut back on the long- acting insulin Will follow blood sugars Follow HbA1c levels Hyperlipidemia On statin JORGE on CKD stage III Baseline creatinine 1.6 Creatinine is 1.9 today will follow repeat labs in a.m. Chronic diastolic CHF Lower extremity edema On Lasix and spironolactone Closely monitor labs History of paroxysmal atrial fibrillation On metoprolol and Coumadin Follow PT/INR History of mechanical mitral valve replacement On Coumadin Follow PT/INR Urinary symptoms Follow UA DVT prophylaxis On Coumadin follow PT/INR Disposition Med/telemetry Full code History of Present Illness Chief Complaint: Chest pain Primary Care Provider: Edith Alvarez MD 79-year-old female with past medical history significant for type 2 diabetes, CKD stage III, hyperlipidemia, history of hypokalemia, chronic respiratory failure with hypoxia on home oxygen 3 L /, subclinical hypothyroidism, COPD, paroxysmal atrial fibrillation, chronic diastolic CHF, history of CAD s/p stents, morbid obesity, drug-induced constipation, GERD, degenerative disc disease, osteoporosis, chronic pain syndrome, depression, history of mitral valve replacement with mechanical valve, who lives at home with her son and family and ambulates mostly with a cane comes because of chest pain. Around 7 PM patient noticed chest pain in central chest radiating to the back about 5/10 in severity. Patient was sitting when she had chest pain and it lasted for about half an hour to 40 minutes. And when she walked to the EMS the chest pain returned but subsided since she is resting. Currently no chest pain. During the episode she was nauseous. She is always short of breath because of COPD. Lately she is having headaches. Vision is okay. No earache. No runny nose. No sore throat. Appetite is not great. States lost few pounds. No abdominal pain. Last night she had lot of diarrhea and she took Imodium. No recent use of antibiotics. Patient thinks she has UTI as she having increased frequency and burning micturition. Denies any fevers. Currently resting comfortably and hemodynamically stable. Family in the room. Past medical history as mentioned above. Past surgical history. Cardiac stent placement. Appendectomy. . Cholecystectomy. Mitral valve replacement. Abdominal hysterectomy removal of tubes Social history. . Lives with her son and family. Quit smoking 2000. Smoked 1 pack a day for 44 years. Currently no alcohol use. No drug use. Family history. Sister had colon cancer. Diabetes. Brother has diabetes. Mother had diabetes. Hypertension. Father had hypertension and stroke. Daughter has A-fib and pacer. Allergies Allergy/AdvReac Type Severity Reaction Status Date / Time morphine Allergy Unknown vomiting Unverified 05/11/24 22:07 oxycodone Allergy Unknown vomiting Unverified 05/11/24 22:07 adhesive AdvReac Unknown Unknown Verified 05/11/24 22:07 adhesive tape AdvReac Unknown Unknown Verified 05/11/24 22:07 codeine AdvReac Unknown Unknown Verified 05/11/24 22:07 propoxyphene AdvReac Unknown Unknown Verified 05/11/24 22:07 [From Christy] aspirin AdvReac Gastrointestinal Verified 05/11/24 22:07 Upset Home Medications Medication Instructions Recorded Confirmed Type atorvastatin 40 mg tablet 40 mg PO QAM 09/02/23 05/11/24 History clopidogrel 75 mg tablet 75 mg PO DAILY 09/02/23 05/11/24 History diltiazem HCl 120 mg 120 mg PO DAILY 09/02/23 05/11/24 History capsule,extended release 24 hr fluoxetine 20 mg capsule 20 mg PO DAILY 09/02/23 05/11/24 History fluticasone fur. 100 mcg-umeclid 1 inh inhalation QAM 09/02/23 05/11/24 History 62.5 mcg-vilant 25 mcg inhalat.powder (Trelegy Ellipta) furosemide 40 mg tablet 80 mg PO QAM 09/02/23 05/11/24 History insulin aspart U-100 100 unit/mL 10 sliding scale dose subcut UD 09/02/23 05/11/24 History subcutaneous solution (Novolog U-100 Insulin aspart) metoprolol succinate 50 mg 50 mg PO DAILY 09/02/23 05/11/24 History tablet,extended release 24 hr omeprazole 20 mg capsule,delayed 20 mg PO DAILYBB 09/02/23 05/11/24 History release spironolactone 25 mg tablet 25 mg PO BID 09/02/23 05/11/24 History trazodone 50 mg tablet 50 mg PO HS 09/02/23 05/11/24 History acetaminophen 325 mg tablet 650 mg PO Q4H PRN Fever Or Pain 05/11/24 05/11/24 History (Tylenol) albuterol sulfate 2.5 mg/3 mL 2.5 mg inhalation Q6H PRN 05/11/24 05/11/24 History (0.083 %) solution for nebulization Shortness Of Breath Or Wheezing albuterol sulfate 90 mcg/actuation 2 inh inhalation Q4H PRN Shortness 05/11/24 05/11/24 History breath activated powder inhaler Of Breath Or Wheezing calcium carbonate 600 mg-vitamin 1 tab PO QAM 05/11/24 05/11/24 History D3 5 mcg (200 unit) tablet ezetimibe 10 mg tablet 10 mg PO DAILY 05/11/24 05/11/24 History ferrous sulfate 325 mg (65 mg 325 mg PO QAM 05/11/24 05/11/24 History iron) tablet insulin degludec 100 unit/mL (3 42 unit subcut HS 05/11/24 05/11/24 History mL) subcutaneous pen (Tresiba FlexTouch U-100 insulin) lutein 25 mg-zeaxanthin 5 mg 1 cap PO DAILY 05/11/24 05/11/24 History capsule (Ocuvite Lutein) magnesium oxide 400 mg (241.3 mg 400 mg PO DAILY 05/11/24 05/11/24 History magnesium) tablet multivitamin 1 tab PO DAILY 05/11/24 05/11/24 History omega-3 1,050 tc-afo-kqf-dpa-fish 2 cap PO HS 05/11/24 05/11/24 History oil 1,200 mg capsule ([place]-3 (with docosapentaenoic acid)) sennosides 8.6 mg capsule (senna) 8.6 mg PO DAILY PRN Constipation 05/11/24 05/11/24 History warfarin 5 mg tablet 5 mg PO 3XWK 05/11/24 05/11/24 History warfarin 5 mg tablet 10 mg PO 4XWK 05/11/24 05/11/24 History Past Med/Surg History Problem List (Updated 05/12/24 @ 00:49 by Bobby Orellana MD) Chest pain SOB (shortness of breath) JORGE (acute kidney injury) (Acute) Acute hyperkalemia (Acute) Acute dyspnea (Acute) Nonproliferative diabetic retinopathy (Acute) H/O mitral valve replacement (Chronic) Anticoagulant long-term use (Acute) CAD (coronary artery disease) (Acute) Chronic diastolic congestive heart failure (Acute) Diabetic nephropathy associated with type 2 diabetes mellitus (Acute) Dyslipidemia (Acute) Hypertension (Acute) Diabetes mellitus Atrial fibrillation (Chronic) Pacemaker (Chronic) Chronic renal failure, stage 3 (moderate) (Chronic) Labyrinthitis Medical History (Updated 05/12/24 @ 00:49 by Bobby Orellana MD) Presence of arterial stent Surgical History (Updated 10/07/23 @ 00:10 by Fredy Marr) Previous back surgery H/O: section History of cholecystectomy Hx of CABG H/O: hysterectomy Family History (Updated 12/09/19 @ 11:17 by Liliana Gupta PA-C) Mother Hypertension Hyperlipemia Diabetes Stroke Father Stroke Social History Smoking Status: Former smoker Tobacco Type: Cigarettes Smoking End Date: 2000; Hx Alcohol Use: No Hx Substance Use: No Preferred Language: Nepali Communication Ability: Effective Accident Examiner Required: No Beliefs That Will Affect Care: None Current Living Situation: Family Current Living Situation Comment: lives with son Other Information That Helps Us Care for You: No Feels Safe at Home: Yes Safety Concerns: Feels Safe At This Time Assistive Devices: Cane, Glasses, Oxygen - Continuous and Walker Review of Systems 2 Review of Systems: All systems reviewed & are unremarkable except as noted in HPI & below Physical Exam Physical Exam: General- Not in distress. Head- atraumatic Eyes- PERRL. ENT- oropharynx clear Neck- supple, no JVD. Lungs- clear to auscultation no wheezing or crackles Heart- regular rhythm; no murmur, no gallop. Abdomen- normal bowel sounds, soft, nontender, no distension Extremities- b/l pretibial edema present, no erythema seen Neuro- alert, oriented PERRL, no facial palsy; no dysarthria; moves extremities. Results & Data Results & Data Vital Signs (Past 12 Hours) Vital Signs Temp Pulse Pulse Resp BP BP Pulse Ox 05/12/24 00:24 64 05/11/24 22:43 65 13 115/42 L 99 05/11/24 21:36 62 15 123/58 L 98 05/11/24 20:39 36.8 C 74 20 145/74 H 98 05/11/24 20:39 36.8 C 77 20 145/74 H 97 05/11/24 20:39 05/11/24 20:38 98 05/11/24 20:38 98 05/11/24 20:35 87 O2 Del Method O2 Flow Rate 05/12/24 00:24 05/11/24 22:43 Nasal Cannula 3 05/11/24 21:36 Nasal Cannula 3 05/11/24 20:39 Room Air 05/11/24 20:39 Nasal Cannula 3 05/11/24 20:39 Nasal Cannula 3 05/11/24 20:38 Nasal Cannula 3 05/11/24 20:38 Nasal Cannula 3 05/11/24 20:35 Diagnostic Findings Laboratory Results WBC 8.76 K/ul (4.8-10.8) 05/11/24 20:39 RBC 4.01 M/uL (4.20-5.40) L 05/11/24 20:39 Hgb 11.8 g/dl (12.0-16.0) L 05/11/24 20:39 Hct 36.1 % (37.0-47.0) L 05/11/24 20:39 MCV 90.0 fL (80.0-100.0) 05/11/24 20:39 MCH 29.4 pg (25.0-34.0) 05/11/24 20:39 MCHC 32.7 g/dL (32.0-36.0) 05/11/24 20:39 RDW Std Deviation 48.9 fL (36.4-46.3) H 05/11/24 20:39 RDW Coeff of Asya 14.8 % (11.5-14.5) H 05/11/24 20:39 Plt Count 267 K/uL (130-400) 05/11/24 20:39 MPV 10.5 fL (9.4-12.4) 05/11/24 20:39 Immature Gran % (Auto) 0.5 % 05/11/24 20:39 Neut % (Auto) 62.0 % 05/11/24 20:39 Lymph % (Auto) 25.2 % 05/11/24 20:39 [place] % (Auto) 9.4 % 05/11/24 20:39 Eos % (Auto) 2.3 % 05/11/24 20:39 Baso % (Auto) 0.6 % 05/11/24 20:39 Neut # (Auto) 5.44 K/uL (1.40-6.50) 05/11/24 20:39 Lymph # (Auto) 2.21 K/uL (1.20-3.40) 05/11/24 20:39 [place] # (Auto) 0.82 K/uL (0.11-0.59) H 05/11/24 20:39 Eos # (Auto) 0.20 K/uL (0.00-0.50) 05/11/24 20:39 Baso # (Auto) 0.05 K/uL (0.00-0.20) 05/11/24 20:39 Immature Gran # (Auto) 0.04 K/uL (0.01-0.20) 05/11/24 20:39 Sodium 139 mmol/L (136-145) 05/11/24 20:39 Potassium 4.2 mmol/L (3.5-5.1) 05/11/24 20:39 Chloride 100 mmol/L (98-107) 05/11/24 20:39 Carbon Dioxide 32 mmol/L (21-32) 05/11/24 20:39 Anion Gap 7 (3-11) 05/11/24 20:39 BUN 40 mg/dl (6-23) H 05/11/24 20:39 Creatinine 1.97 mg/dl (0.6-1.2) H 05/11/24 20:39 Est Cr Clr Drug Dosing 23.2 ml/min 05/11/24 20:39 Est GFR ( Amer) 27.0 ml/min 05/11/24 20:39 Est GFR (Non-Af Amer) 23.3 ml/min 05/11/24 20:39 BUN/Creatinine Ratio 20.3 (10-20) H 05/11/24 20:39 Glucose 140 mg/dl (70-99(Fasting)) H 05/11/24 20:39 Calcium 9.4 mg/dl (8.6-10.3) 05/11/24 20:39 Total Bilirubin 0.5 mg/dl (0.2-1.0) 05/11/24 20:39 AST 23 U/L (13-39) 05/11/24 20:39 ALT 16 U/L (7-52) 05/11/24 20:39 Alkaline Phosphatase 76 U/L (34-104) 05/11/24 20:39 Troponin I High Sens 11.0 pg/ml (0-14) 05/11/24 22:28 Total Protein 7.3 gm/dl (6.0-8.3) 05/11/24 20:39 Albumin 3.9 gm/dl (3.4-5.0) 05/11/24 20:39 Globulin 3.4 gm/dl (2.5-4.0) 05/11/24 20:39 Albumin/Globulin Ratio 1.1 (0.9-2) 05/11/24 20:39 Lipase 213 U/L (11-82) H 05/11/24 20:39 ECG Additional Comments: ECG. Ventricular paced rhythm rate of 82. Code Status & VTE Plan VTE Prophylaxis Plan VTE Prophylaxis will be ordered: Yes
[2024-05-12] MEDS ORDERED: CARBOHYDRATES FOR HYPOGLYCEMIA PO PRN (01:56)
[2024-05-12] MEDS ORDERED: GLUCAGON FOR INJ 1 MG VIAL SQ PRN (01:56)
[2024-05-12] MEDS ORDERED: GLUCOSE 10 TAB/TUBE PO PRN (01:56)
[2024-05-12] MEDS ORDERED: NITROGLYCERIN SL 0.4 MG/TAB TAB SL PRN (01:56)
[2024-05-12] MEDS ORDERED: ALBUTEROL 0.083% NEBU SOLN 3 ML VIAL INH PRN (01:56)
[2024-05-12] MEDS ORDERED: DEXTROSE 50% 50 ML SYRINGE IV PRN (01:56)
[2024-05-12] MEDS ORDERED: GLUCOSE 40% GEL 15 GM TUBE PO PRN (01:56)
[2024-05-12] MEDS ORDERED: ALBUTEROL HFA 8 GM INHALER INH PRN (02:32)
[2024-05-12] MEDS ORDERED: SENNA 8.6 MG TAB PO PRN (02:37)
[2024-05-12] MEDS: INSULIN ASPART PER UNIT CHARGE SC SCH ×2 (02:54→17:30)
[2024-05-12 03:57] LABS: Appearance Urine Cloudy (Clear); Bacteria Urine Automated 4+ (None Seen); Bilirubin Urine Negative (Negative); Blood Urine Trace (Negative); Color Urine Yellow; Epithelial Cell Urine Auto 0-2 /hpf (0-2); Glucose Urine UA Negative (Negative); Ketones Urine Negative (Negative); Leukocyte Esterase Urine 3+ (Negative); Nitrite Urine Positive (Negative); Protein Urine Negative (Negative); RBC Urine Automated 0-2 /hpf (0-2); Specific Gravity Urine 1.011 (1.000-1.030); Urobilinogen Urine Negative (Negative); WBC Urine Automated >50 /hpf (0-5)
--- OUTSIDE RECORDS SUMMARY | 2024-05-12 05:15 | External Medical Summary | Summary of Care ---
Author Name Unknown Organization [facility] Address [address] [facility] [place] [address] Phone [phone] Care Team Providers Care Government Affairs Manager Name Role Phone Edith Osuna MD Primary Care Prov ider Reason for Visit * Reason Comments Pulmonary Function Test PFT with broncho dilator Encounter Details Date Type Department Care Team (Latest Contact Info) Description 04/29/2024 11:00 AM EDT PulmDiagnostic Pulmonary Function Lab, [facility] [address] [facility] [place] [address] [place], [address] [facility] [place] [id number] COPD, group B, by GOLD 2017 classification ([facility])*; Chronic respiratory failure with hypoxia, on home oxygen therapy ([facility]) Allergies Active Allergy Reactions Criticality Noted Date Comments Abhinav Inhibitors Cough 12/25/2021 Aspirin 02/15/2021 "edlgado" her stomach, had a GI bleed in the past Codeine 11/22/2020 Morphine 11/22/2020 Oxycodone 11/22/2020 Nausea, vomiting, chest pain Semaglutide(0.25 Or 0.5mg-Dos) Diarrhea 10/04/2022 Severe documented as of this encounter (statuses as of 04/29/2024) Medications Medication Sig Dispensed Refills Start Date End Date Status Ferrous Sulfate 325 (65 Fe) MG Oral Tablet (Feosol)Indications: anemia Take 1 Tablet by mouth daily with breakfast. 30 Tab 11/22/2020 Active Multivitamin Adult Oral TabletIndications:venegas pplementation Take by mouth 1 Tablet daily . 30 Tab 11/22/2020 Active Saline Nasal [place] 0.65 % Nasal SolutionIndications: for nasal dryness or congestion Administer 2 Sprays into each nostril in the morning and 2 Sprays at noon and 2 Sprays in the evening and 2 Sprays before bedtime. for nasal dryness or congestion. 60 mL 11/22/2020 Active [place] 3 1200 MG Oral CapsuleIndications:h eart health Take by mouth 2 Capsules every night at bedtime . 60 Cap 11/22/2020 Active Acetaminophen 325 MG Oral Tablet (Tylenol)Indications :as needed for pain/fever Take 2 Tablets by mouth every 4 hours as needed for Fever (Temp Greater than ) or Pain, Mild. 100 Tab 11/22/2020 Active OneTouch Delica Lancets 30GIndications:Type 2 diabetes mellitus with hemoglobin A1c goal of less than 8.0% ([facility]) Use to test blood sugar 3-4 times a day dx E11.9 400 Each 3 03/13/2021 Active OneTouch Verio In Vitro Strip (Glucose Blood)Indications:Ty pe 2 diabetes mellitus with hemoglobin A1c goal of less than 8.0% ([facility]) Use to test blood sugar 3-4 times a day dx e11.9 400 Strip 3 03/13/2021 Active FreeStyle Robbin 2 Sensor Use as directed. Active Magnesium Oxide 400 (240 Mg) MG Oral TabletIndications:Ch ronic diastolic CHF (congestive heart failure) (HCC) Take 1 Tab by mouth daily. 28 Tab 5 04/19/2021 Active oxygen IN GAS Use 2 L/min(Oxygen) as directed continuous. Active Insulin Syringes (Disposable) U-100 1 MLIndications:Type 2 diabetes mellitus with hemoglobin A1c goal of less than 8.0% ([facility]) Twice a day 200 Each 1 11/23/2021 Active Ocuvite-Lutein Oral TabletIndications:venegas pplementation Take by mouth 1 Tablet daily . Active Calcium Carbonate-Vitamin D 600-200 MG-UNIT Oral TabletIndications:venegas pplementation Take 1 Tablet by mouth in the morning. Active Albuterol Sulfate 108 (90 Base) MCG/ACT Inhalation Aerosol Powder Breath ActivatedIndications :wheezing Inhale by mouth 2 Puffs every 4 hours . For wheezing 3 Each 3 05/31/2022 Active Senna 8.6 MG Oral Capsule Take 1 Tablet by mouth in the morning. As needed constipation . Active HYDROcodone-Acetamin ophen 5-325 MG Oral TabletIndications:DD D (degenerative disc disease), lumbar Take 1 Tablet by mouth every 8 hours as needed (back). 30 Tablet 08/13/2023 Active DIURETIC TITRATION PLAN If no improvement on day 3, contact heart failure managing provider. 1 Each 08/21/2023 Active Ketoconazole 2 % External CreamIndications:derrick h Apply to rash twice a day until clear 60 g 3 09/19/2023 Active BD Insulin Syringe U/F 31G X 5/16" 0.5 ML (Insulin Syringe-Needle U-100) use twice daily 200 Each 1 09/22/2023 Active Warfarin Sodium 2.5 MG Oral Tablet (Coumadin)Indication s:Paroxysmal atrial fibrillation (HCC),H/O mitral valve replacement with mechanical valve Take 2.5mg (1 tablet) on Mon,Wed and Fri and 2 tablets (5mg) all other days or as directed by anticoag clinic 135 Tablet 3 09/24/2023 Active BD Pen Needle Stephanie U/F 32G X 4 MM (Insulin Pen Needle) Use as directed to inject insulin up to three times daily 300 Each 3 11/04/2023 Active NovoLOG FlexPen 100 UNIT/ML Subcutaneous Solution Pen-injector (insulin aspart) Inject 10 Units under the skin daily before breakfast AND 10 Units daily before dinner. 15 mL 3 11/04/2023 Active traZODone HCl 50 MG Oral Tablet (Desyrel) TAKE ONE TABLET BY MOUTH EVERY DAY AT BEDTIME 90 Tablet 1 11/18/2023 Active Tresiba FlexTouch 100 UNIT/ML Subcutaneous Solution Pen-injector (Insulin Degludec)Indications :Type 2 diabetes mellitus with hemoglobin A1c goal of less than 8.0% ([facility]) inject under the skin 42 units before bedtime 45 mL 1 11/26/2023 Active Atorvastatin Calcium 40 MG Oral Tablet (Lipitor) Take 1 Tablet by mouth in the morning. 90 Tablet 1 12/11/2023 Active Spironolactone 25 MG Oral Tablet (Aldactone)Indicatio ns:Chronic diastolic CHF (congestive heart failure) ([facility]) TAKE ONE TABLET BY MOUTH EVERY MORNING, AND ONE TABLET BEFORE BEDTIME 180 Tablet 1 12/25/2023 5 Active Metoprolol Succinate ER 50 MG Oral Tablet Extended Release 24 Hour (toPROL XL) TAKE ONE TABLET BY MOUTH EVERY DAY 90 Tablet 3 01/08/2024 5 Active Trelegy Ellipta 100-62.5-25 MCG/ACT Aerosol Powder Breath Activated (Fluticasone-Umeclid inium-Vilanterol)Ind ications:COPD, group B, by GOLD 2017 classification ([facility]) INHALE ONE PUFF BY MOUTH EVERY MORNING 180 Each 2 01/16/2024 5 Active Furosemide 40 MG Oral Tablet (Lasix)Indications:C hronic diastolic CHF (congestive heart failure) ([facility]) TAKE TWO TABLETS BY MOUTH EVERY MORNING 180 Tablet 1 02/13/2024 Active Ezetimibe 10 MG Oral Tablet (Zetia)Indications:D yslipidemia, goal LDL below 70 Take 1 Tablet by mouth daily. 100 Tablet 3 02/17/2024 Active Omeprazole 20 MG Oral Capsule Delayed Release (PriLOSEC)Indication s:Gastro-esophageal reflux disease without esophagitis TAKE ONE CAPSULE BY MOUTH EVERY DAY 1 HOUR BEFORE THE FIRST MEAL OF THE DAY 90 Capsule 1 02/22/2024 5 Active dilTIAZem HCl ER Coated Beads 120 MG Oral Capsule Extended Release 24 Hour (Cardizem CD) TAKE ONE CAPSULE BY MOUTH EVERY DAY 90 Capsule 1 02/22/2024 5 Active Clopidogrel Bisulfate 75 MG Oral Tablet (pLAVix) TAKE ONE TABLET BY MOUTH EVERY DAY 100 Tablet 03/16/2024 5 Active FLUoxetine HCl 20 MG Oral Capsule (PROzac)Indications: Moderate episode of recurrent major depressive disorder ([facility]) TAKE ONE CAPSULE BY MOUTH EVERY DAY 90 Capsule 3 03/17/2024 5 Active Hospital, Clinic, or Other Facility Administered Medication Ordered Dose Route Frequency Start Date End Date Status Albuterol Sulfate (Proventil) (5 MG/ML) 0.5% *conc* inhalation solution 2.5 mgIndications:COPD, group B, by GOLD 2017 classification ([facility]),Chronic respiratory failure with hypoxia, on home oxygen therapy ([facility]) 2.5 mg NEBULIZER PRN 11/26/2023 11/25/2024 Acti ve Albuterol Sulfate (Proventil) (2.5 MG/3ML) 0.083% inhalation solution 2.5 mgIndications:COPD, group B, by GOLD 2017 classification ([facility]),Chronic respiratory failure with hypoxia, on home oxygen therapy ([facility]) 2.5 mg NEBULIZER PRN 11/26/2023 11/25/2024 Acti ve documented as of this encounter (statuses as of 04/29/2024) Active Problems Problem Noted Date Diagnosed Date COPD, group B, by GOLD 2017 classification 09/15 Overview: Per COPD GOLD Classification Age-related osteoporosis wit hout current pathological fracture 02/05/2023 Last Assessment & Plan: Currently on prolia injections Chronic respiratory failure with hypoxia, on home oxygen therapy 10/04/2022 Overview: Wearing 3L continuously Last Assessment & Plan: Wearing 3L continuously Subclinical hypothyroidism 10/04/2022 History of HI (myocardial infarction) 05/31/2022 Type 2 diabetes mellitus wit h stage 3b chronic kidney disease, with long-term current use of insulin 08/20/2021 Overview: Per CKD protocol Last Assessment & Plan: "RED FLAG" Diabetic symptoms: Generalized Weakness Goal HgbA1c <8 Diabetic Complications Vascular (examples: PVD, PAD, CAD, CVA) Renal (example: CKD, Proteinuria, Dialysis) Medication Regimen Basal/Long Acting Insulin Bolus/Short Acting Insulin DM Secondary Prevention Moderate-High Intensity Statin Aspirin Additional Comments Followed by MTM Needs new robbin device and sensors Hypertensive heart and kidne y disease with chronic diastolic congestive heart failure and stage 3b chronic kidney disease 08/20/2021 Overview: Per CKD protocol Last Assessment & Plan: "RED FLAG" HF Symptoms: Leg Swelling (Examples: "I can't wear certain socks or shoes", "My pants feel tight") Medication Regimen: Beta Tricia Therapy: Metoprolol Succinate (ER) ABHINAV Inhibitor/ARB Therapy: none Diuretic therapy: Lasix Aldactone SGLT2 Inhibitor: none Remote Patient Monitoring Vendor: No Connected RPM Device(s): No current devices Self - Management Plan Double dose of Furosemide for 3 days Exacerbation Plan BMP Additional Comments: Euvolemic today Gastro-esophageal reflux disease without esophag itis 02/15/2021 Type 2 diabetes mellitus wit h hemoglobin A1c goal of less than 8.0% 11/22/2020 Obesity, morbid (more than 1 00 lbs over ideal weight or BMI > 40) 11/22/2020 H/O mitral valve replacement with mechanical francisco ve 11/22/2020 Dyslipidemia, goal LDL below 70 11/22/2020 Coronary artery disease invo lving mentasta coronary artery without angina pectoris 11/22/2020 Last Assessment & Plan: Followed by cardiology Continue plavix, metoprolol and atorvastatin Paroxysmal atrial fibrillation 11/22/2020 Last Assessment & Plan: Rate controlled on metoprolol Continue coumadin Ulnar neuropathy of right upper extremity 2020 Drug-induced constipation 11/22/2020 Chronic pain syndrome 11/22/2020 DDD (degenerative disc disease), lumbar 11/23/19 21 Moderate episode of recurrent major depressive d isorder 11/22/2020 Last Assessment & Plan: Mood stable on current dose prozac Hypokalemia 11/22/2020 documented as of this encounter (statuses as of 04/29/2024) Resolved Problems Problem Noted Date Diagnosed Date Resolved Date COPD, severity to be determined 08/19/2022 09/18/2023 Overview: Per COPD GOLD Classification Last Assessment & Plan: "RED FLAG" COPD symptoms: Cough ("I get a different kind of cough than what I' have every day") Wheezing ("You can hear the whistling across the room") Medication Regimen All Classes - COLE Class D - Inhaled [id number] Combination Inhaler (Trellegy) Remote Patient Monitoring Vendor: No Connected RPM Device(s): No current devices Self-Management plan Other/Additional Comments: rescue inhaler, contact [facility] Exacerbation plan Chest Xray Additional Comments: Recent admission for exacerbation with RSV Finishing prednisone taper Using flutter device Chronic kidney disease, stage 3b 09/17/2021 08/22/2023 Overview: Per CKD protocol Chronic obstructive pulmonary disease 07/31/2021 08/22/2022 Overview: Per COPD GOLD Classification Hypertensive heart and kidne y disease with chronic diastolic congestive heart failure and stage 3a chronic kidney disease 02/15/202108/08 Overview: Per CKD protocol Hypoxia 11/22/2020 09/11/2023 Overview: Condition is included in chronic respiratory failure with hypoxia on pl Chronic narcotic use 11/22/2020 Long-term insulin use 11/22/20202020 Chronic diastolic CHF (conge stive heart failure) 11/22/2020 08/22/2023 HTN, goal below 140/90 11/22/202009/10 Stenosis of left subclavian artery 11/22/2020 10/04/2022 Type 2 diabetes mellitus wit h stage 3a chronic kidney disease, with long-term current use of insulin 11/22/2020 08/23/2021 Overview: Per CKD protocol documented as of this encounter (statuses as of 04/29/2024) Immunizations Name Administration Dates Next Due COVID-19, mRNA, LNP-s, PF, B ooster, 100mcg/0.5mg (Moderna) 08/14/2021 Covid-19 Ad26, Single Dose (Velma/J&J) 021 Pneumococcal Conjugate Vacc, 13 Valent (Prevnar) 02/15/2021 Pneumococcal Polysaccharide PPV23 (Pneumovax) 07/31/2021 Seasonal Influenza, Quadriva lent Hd (Fluzone Hd) 05/29/2023,05/31/2022,07/31/2021 Zoster Vaccine Recombinant (Shingrix) 03/20/2021 documented as of this encounter Social History Tobacco Use Types Packs/Day Years Used Date Smoking Tobacco: Former Cigarettes 1 44.6 0 [birth year]07/1956 - 09/08/2000 Smokeless Tobacco: Never Alcohol Use Standard Drinks/Week Comments Not Currently 0 (1 standard drink = 0.6 oz pur e alcohol) PHQ-2 Answer Date Recorded PHQ Adult Total Score 0 07/30/2023 Hunger Vital Sign Answer Date Recorded Within the past 12 months, y ou worried that your food would run out before you got the money to buy more. Never true 08/19/20 23 Within the past 12 months, t he food you bought just didn't last and you didn't have money to get more. Never true 08/19/2023 Childcare Answer Date Recorded Do you feel overwhelmed with taking care of a child, family member or friend? No 08/19/2023 Does your family need help f inding childcare? (Household - for ages 0-17 years) Not on file 08/19/2023 Clothing Answer Date Recorded Have you been unable to get clothing when it was really needed? No 08/19/2023 Is your family able to get c lothes or diapers when needed? (Household - for ages 0-17 years) Not on file 08/19/2023 Personal Safety Answer Date Recorded Do you feel unsafe or have concerns for your saf ety? No 08/19/2023 Do you have concerns for you r family's safety? (Household - for ages 0-17 years) Not on file 08/19/2023 Utilities Answer Date Recorded Do you have trouble paying y our heating, water, or electric bill? No 08/19/2023 Is your family able to pay t he heat, water, or electric bill? (Household - for ages 0-17 years) Not on file 08/19/2023 Does your family have access to good internet? (Household - for ages 0-17 years) Not on file 08/19/2023 Employment Status Answer Date Recorded Are you unemployed or without regular income? No 08/19/2023 Does the household have a re gular source of income? (Household - for ages 0-17 years) Not on file 08/19/2023 Social Connections Answer Date Recorded How often do you feel lonely or isolated from th ose around you? Never 08/19/2023 Financial Resource Strain Answer Date R ecorded Do you have any trouble payi ng for your medications, or do you think you might in the future? No 08/19/2023 Does your family have troubl e paying for medicine? (Household - for ages 0-17 years) Not on file 08/19/2023 Transportation Needs Answer Date Record ed READ ONLY Do you have troubl e getting a ride to medical visits or work? Never True 08/19/2023 Does your family have a hard time getting a ride to doctors visits? (Household - for ages 0-17 years) Not on file 08/19/2023 Has lack of transportation k ept you from medical appointments, meetings, work, or from getting things needed for daily living? Check all that apply. (Adult - for ages 18 years and over) Not on file 08/19/2023 Do you (or your family) have trouble finding or paying for a ride (transportation)? (Household - for ages 0-17 years) Not on file 08/19/2023 Housing Stability Answer Date Recorded Do you currently live in a s helter or have no steady place to sleep at night? No 08/19/2023 READ ONLY Do you think you a re at risk of becoming homeless? No 08/19/2023 Does your family worry about paying for your home or becoming homeless? (Household - for ages 0-17 years) Not on file 1 10/20/2022 Are you homeless or worried that you might be in the future? (Adult - for ages 18 years and over) Not on file Are you (or your family) joanna eless or worried that you might be in the future? (Household - for ages 0-17 years) Not on file Food Insecurity Answer Date Recorded Do you need food for this week? No 08/19/2023 Are you able to get enough f ood for your family? (Household - for ages 0-17 years) Not on file 08/19/2023 Does your family need food t his week? (Household - for ages 0-17 years) Not on file 08/19/2023 Do you always have enough fo od for your family? (Household - for ages 0-17 years) Not on file 08/19/2023 Sex and Gender Information Value Date Recorded Sex Assigned at Female 07/22/2022 1:17 PM EST Gender Identity Female 07/22/2022 1:17 PM EST Sexual Orientation Straight 07/22/2022 1: 17 PM EST Job Start Date Occupation Industry Not on file Not on file Not on file documented as of this encounter Last Filed Vital Signs Vital Sign Reading Time Taken Comments Blood Pressure - - Pulse - - Temperature - - Respiratory Rate - - Oxygen Saturation - - Inhaled Oxygen Concentration - - Weight 97.4 kg (214 lb 11.7 oz) 024 11:22 AM EDT Height 161 cm (5' 3.39") 04/29/2024 11: 22 AM EDT Body Mass Index 37.58 04/29/2024 11:22 AM EDT documented in this encounter Nursing Notes * Indu Greene RRT - 04/29/2024 11:24 AM EDT Fani Merritt was identified by name, Date of : (1945), and . Vitals were obtained for testing. Body mass index is 37.58 kg/m. Pt has a 1 ppd for 44.6 years smoking history and quit 23.6 years ago. Pt wears 3 liters of oxygen continuously. Pt is a retired nurse. Spirometry,DLCO, MIP/MEP, MVV, RAW, and TGV performed. A slow volume nebulizer treatment of 0.5ml of albuterolin 3 ml of NSS was given. The proper method of use, as well as anticipated side effects, of this svn are discussed and demonstrated to the patient. Patient demonstrates adequate delivery. Administrations This Visit Albuterol Sulfate (Proventil) (2.5 MG/3ML) 0.083% inhalation solution 2.5 mg Admin Date 04/29/2024 Action Given Dose 2.5 mg Route Nebulizer Documented By Indu Greene RRT documented in this encounter Plan of Treatment Upcoming Encounters Date Type Department Care Team (Late st Contact Info) Description 05/03/2024 2:00 PM EDT Office Visit Pulmonary Medicine, [facility] [address] [facility] [place] [address] Ariel Wing MD [address] [place] [address] 05/04/2024 6:30 AM EDT Anticoagulation Central[facility] Services, [address] [place] [address] [facility], [address] [place] [address] 05/18/2024 2:30 PM EDT Home Visit [facility], [facility] [address] [facility] [place] [address] Nette Dior RN [address] [place] [address] 07/26/2024 3:00 PM EST Office Visit Nephrology [address] [place] [address] Sonia Logan MD [address] [facility] [place] [address] 08/02/2024 2:30 PM EST Nurse Only Ancillary [address] [place] [address] [place], Nurse [address] [place] [address] 08/18/2024 2:30 PM EST Cardiac Studies Cardiac Studies, [facility] [address] [facility] [place] [address] 08/27/2024 1:20 PM EST Office Visit Family Medicine [address] [place] [phone] Marnie Reyes [address] [place] [address] 09/07/2024 3:00 PM EST Office Visit Cardiology [address] [place] [address] Ulices Phillips PA-Raymon [address] [place] [address] 09/15/2024 1:00 PM EST Imaging Radiology, [address] [place] [address] 03/02/2025 2:20 PM EDT Office Visit Family Medicine [address] [place] [phone] Edith Osuna MD [address] [place] [address] [place] [address] Health Maintenance Due Date Last Done Comments Diabetic Foot Exam 05/31/2023 05/31/2022, 07/31/2021 CKD PHOS USE SMARTSET 22274 10/04/2023 10/04/2022, 1 09/30/2020 CKD HGB USE SMARTSET 46173 02/06/202402/05, 02/05/2023, 10/04/2022, Additional history exists *BISPHONATE OR OTHER ACCEPTABLE MEDICATION NEEDED FOR OSTEOPOROSIS (REFER TO SMARTSET #1146) 02/28/2024 Influenza Vaccine (FLU shot) (#1) 2024 05/29/2023, 05/31/2022, 07/31/2021, Additional history exists GFR 06/30/2024 12/30/2023, 01/08, 10/04/2022, Additional history exists HbA1c 06/30/2024 12/30/2023, 01/08, 05/31/2022, Additional history exists DXA Scan 07/03/2024 07/03/2022, 07/03/2022 Adult Wellness Visit 07/30/2024 07/30/2023, 07/22/20 Depression Monitoring 07/30/2024 07/30/2023 Albumin/Creatinine Ratio 08/29/2024 023, 05/31/2022, 08/28/2021, Additional history exists Diabetic Eye Exam 01/06/2025 01/07/2024, , 12/06/2022, Additional history exists O2 ASSESSMENT COMPLETED IN PAST YEAR FOR COPD 02/24/2025 02/25/2024 DTaP,Tdap,and Td Vaccines (2 - Td or Tdap) 11/24/2031 11/23/2021 (Not indicated) Zoster Vaccines Discontinued 03/20/2021 Pneumococcal Vaccine: 65+ Years Completed 07/31/2021, 02/15/2021 COVID-19 Vaccine Discontinued 08/14/2021, 01/20/2021 VITAMIN D LEVEL ONCE IN A LIFETIME-USE SMARTSET# [id number] Completed 02/05/2023 Alpha-1 Antitrypsin Discontinued HPV (Gardasil) Vaccine Aged Out No lo nger eligible based on patient's age to complete this topic Hepatitis B Vaccine Aged Out No longe r eligible based on patient's age to complete this topic MENINGOCOCCAL (MENACTRA/MENVEO) Aged Out No longer eligible based on patient's age to complete this topic documented as of this encounter Medical Devices Not on filedocumented as of this encounter Visit Diagnoses Diagnosis COPD, group B, by GOLD 2017 classification (HCC)- Primary Chronic respiratory failure with hypoxia, on home oxygen therapy (HCC) documented in this encounter Administered Medications Active Administered Medications - up to 3 most recent administrations Medication Order MAR Action Action Date Dose Rate Site Albuterol Sulfate (Proventil) (2.5 MG/3ML) 0.083% inhalation solution 2.5 mg 2.5 mg, Nebulizer, PRN Other, ONCE FOR PFT, Starting on Fri11/26/23 at 1448, Until Yamila 11/25/24 at 1447, For 365 days Given 04/29/2024 11:09 AM EDT 2.5 mg documented in this encounter Care Teams Government Affairs Manager Relationship Specialty Start Date End Date Edith Osuna MD [address] [place] [address] [place] [address] PCP - General Family Medicine 02/15/21 documented as of this encounter
--- OUTSIDE RECORDS SUMMARY | 2024-05-12 05:15 | External Medical Summary | Summary of Care ---
Author Name Unknown Organization [facility] Address [address] [place] [address] Phone [phone] Care Team Providers Care Grievance Manager Name Role Phone Edith Osuna MD Primary Care Prov ider Reason for Visit * Reason Comments Pulmonary Function Test PFT with broncho dilator Encounter Details Date Type Department Care Team (Latest Contact Info) Description 04/29/2024 11:00 AM EDT PulmDiagnostic Pulmonary Function Lab, [facility] [address] [place] [address] [place], [address] [address] [facility] [place] [address] COPD, group B, by GOLD 2017 classification ([facility])*; Chronic respiratory failure with hypoxia, on home oxygen therapy ([facility]) Allergies Active Allergy Reactions Criticality Noted Date Comments Abhinav Inhibitors Cough 12/25/2021 Aspirin 02/15/2021 "delgado" her stomach, had a GI bleed in [...] . 30 Tab 11/22/2020 Active Saline Nasal Fallentimber 0.65 % Nasal SolutionIndications: for nasal dryness or congestion Administer 2 Sprays into each nostril in the morning and 2 Sprays at noon and 2 Sprays in the evening and 2 Sprays before bedtime. for nasal dryness or congestion. 60 mL 11/22/2020 Active Lytton 3 1200 MG Oral CapsuleIndications:[facility] [...] hemoglobin A1c goal of less than 8.0% ([facility]) Use to test blood sugar 3-4 times a day dx E11.9 400 Each 3 03/13/2021 Active OneTouch Verio In Vitro Strip (Glucose Blood)Indications:Ty pe 2 diabetes mellitus with hemoglobin A1c goal of less than 8.0% ([facility]) Use to test blood sugar 3-4 times [...] hemoglobin A1c goal of less than 8.0% ([facility]) Twice a day 200 Each 1 11/23/2021 [...] hemoglobin A1c goal of less than 8.0% ([facility]) inject under the skin 42 units before bedtime 45 mL 1 11/26/2023 Active Atorvastatin Calcium 40 MG Oral Tablet (Lipitor) Take 1 Tablet by mouth in the morning. 90 Tablet 1 12/11/2023 Active Spironolactone 25 MG Oral Tablet (Aldactone)Indicatio ns:Chronic diastolic CHF (congestive heart failure) ([facility]) TAKE ONE TABLET BY MOUTH EVERY MORNING, AND ONE TABLET BEFORE BEDTIME 180 Tablet 1 12/25/2023 5 Active Metoprolol Succinate ER 50 MG Oral Tablet Extended Release 24 Hour (toPROL XL) TAKE ONE TABLET BY MOUTH EVERY DAY 90 Tablet 3 01/08/2024 5 Active Trelegy Ellipta 100-62.5-25 MCG/ACT Aerosol Powder Breath Activated (Fluticasone-Umeclid inium-Vilanterol)Ind ications:COPD, group B, by GOLD 2017 classification ([facility]) INHALE ONE PUFF BY MOUTH EVERY MORNING 180 Each 2 01/16/2024 5 Active Furosemide 40 MG Oral Tablet (Lasix)Indications:C hronic diastolic CHF (congestive heart failure) ([facility]) TAKE TWO TABLETS BY MOUTH EVERY MORNING [...] Moderate episode of recurrent major depressive disorder ([facility]) TAKE ONE CAPSULE BY MOUTH EVERY DAY 90 Capsule 3 03/17/2024 5 Active Hospital, Clinic, or Other Facility Administered Medication Ordered Dose Route Frequency Start Date End Date Status Albuterol Sulfate (Proventil) (5 MG/ML) 0.5% *conc* inhalation solution 2.5 mgIndications:COPD, group B, by GOLD 2017 classification ([facility]),Chronic respiratory failure with hypoxia, on home oxygen therapy ([facility]) 2.5 mg NEBULIZER PRN 11/26/2023 11/25/2024 Acti ve Albuterol Sulfate (Proventil) (2.5 MG/3ML) 0.083% inhalation solution 2.5 mgIndications:COPD, group B, by GOLD 2017 classification ([facility]),Chronic respiratory failure with hypoxia, on home oxygen therapy ([facility]) 2.5 mg NEBULIZER PRN 11/26/2023 11/25/2024 Acti [...] 3L continuously Subclinical hypothyroidism 10/04/2022 History of KS (myocardial infarction) 05/31/2022 Type 2 diabetes mellitus [...] 70 11/22/2020 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 Exacerbation plan Chest Xray Additional Comments: [...] 2:00 PM EDT Office Visit Pulmonary Medicine, [facility] [address] [place] [address] Ariel Wing MD [address] [place] [address] 05/04/2024 6:30 AM EDT Anticoagulation [facility], [address] [place] [address] [facility], [address] [place] [address] 05/18/2024 2:30 PM EDT Home Visit [facility], [facility] [address] [facility] [place] [address] Nette Dior RN [address] [facility] [place] [address] 07/26/2024 3:00 PM EST Office Visit Nephrology [address] [place] [address] Sonia Logan MD [address] [facility] [place] [address] 08/02/2024 2:30 PM EST Nurse Only Ancillary [address] [place] [address] [place], Nurse [address] [place] [address] 08/18/2024 2:30 PM EST Cardiac Studies Cardiac Studies, [facility] [address] [facility] [place] [address] 08/27/2024 1:20 PM EST Office Visit Family Medicine [address] [place] [phone] Marnie Reyes [address] [place] [address] 09/07/2024 3:00 PM EST Office Visit Cardiology [address] [place] [address] Ulices Phillips PA-Raymon [address] [place] [address] 09/15/2024 1:00 PM EST Imaging Radiology, [address] [place] [address] 03/02/2025 2:20 PM EDT Office Visit Family Medicine [address] [place] [phone] Edith Osuna MD [address] [place] [address] [place] [id number] Health Maintenance Due Date Last Done Comments Diabetic Foot Exam 05/31/2023 05/31/2022, 07/31/2021 CKD PHOS USE SMARTSET [id number] 10/04/2023 10/04/2022, 1 09/30/2020 CKD HGB USE SMARTSET 21007 02/06/202402/05, 02/05/2023, 10/04/2022, Additional history exists *BISPHONATE [...] D LEVEL ONCE IN A LIFETIME-USE SMARTSET# [id number] Completed 02/05/2023 Alpha-1 Antitrypsin Discontinued HPV (Gardasil) [...] mg documented in this encounter Care Teams Grievance Manager Relationship Specialty Start Date End Date Edith Osuna MD [address] [place] [address] [place] [id number] PCP - General Family Medicine 02/15/21 documented as of this encounter
--- OUTSIDE RECORDS SUMMARY | 2024-05-12 05:15 | External Medical Summary | Summary of Care ---
Author Name Unknown Organization [facility] Address [address] [place] [address] Phone [phone] Care Team Providers Care Greens Tier Name Role Phone Edith Osuna MD Primary Care Prov ider Reason for Visit * Reason Comments Follow Up Encounter Details Date Type Department Care Team (Late st Contact Info) Description 05/03/2024 2:00 PM EDT Telemedicine Pulmonary Medicine, [facility] [address] [facility] [place] [address] Ariel Ireland MD [address] [facility] [place] [address] Chronic respiratory failure with hypoxia, on home oxygen therapy (HCC)* Allergies Active Allergy Reactions Criticality Noted Date Comments Abhinav Inhibitors Cough 12/25/2021 Aspirin 02/15/2021 "delgado" her stomach, had a GI bleed in the past Codeine 11/22/2020 Morphine 11/22/2020 Oxycodone 11/22/2020 Nausea, vomiting, chest pain Semaglutide(0.25 Or 0.5mg-Dos) Diarrhea 10/04/2022 Severe documented as of this encounter (statuses as of 05/03/2024) Medications Medication Sig Dispensed Refills Start Date End Date Status Ferrous Sulfate 325 (65 Fe) MG Oral Tablet (Feosol)Indications: anemia Take 1 Tablet by mouth daily with breakfast. 30 Tab 11/22/2020 Active Multivitamin Adult Oral TabletIndications:venegas pplementation Take by mouth 1 Tablet daily . 30 Tab 11/22/2020 Active Saline Nasal [place] 0.65 % Nasal SolutionIndications: for nasal dryness or congestion Administer 2 Sprays into each nostril in the morning and 2 Sprays at noon and 2 Sprays in the evening and 2 Sprays before bedtime. for nasal dryness or congestion. 60 mL 11/22/2020 Active [place] 3 1200 MG Oral CapsuleIndications: eart health Take by mouth 2 Capsules [...] hemoglobin A1c goal of less than 8.0% ([facility]) Use to test blood sugar 3-4 times a day dx E11.9 400 Each 3 03/13/2021 Active OneTouch Verio In Vitro Strip (Glucose Blood)Indications:Ty pe 2 diabetes mellitus with hemoglobin A1c goal of less than 8.0% ([facility]) Use to test blood sugar 3-4 times a day dx e11.9 400 Strip 3 03/13/2021 Active FreeStyle Robbin 2 Sensor Use as directed. Active Magnesium Oxide 400 (240 Mg) MG Oral TabletIndications:Ch ronic diastolic CHF (congestive heart failure) ([facility]) Take 1 Tab by mouth daily. 28 Tab 5 04/19/2021 Active oxygen IN GAS Use 2 L/min(Oxygen) as directed continuous. Active Insulin Syringes (Disposable) U-100 1 MLIndications:Type 2 diabetes mellitus with hemoglobin A1c goal of less than 8.0% ([facility]) Twice a day 200 Each 1 [...] hemoglobin A1c goal of less than 8.0% ([facility]) inject under the skin 42 units before bedtime 45 mL 1 11/26/2023 Active Atorvastatin Calcium 40 MG Oral Tablet (Lipitor) Take 1 Tablet by mouth in the morning. 90 Tablet 1 12/11/2023 Active Spironolactone 25 MG Oral Tablet (Aldactone)Indicatio ns:Chronic diastolic CHF (congestive heart failure) ([facility]) TAKE ONE TABLET BY MOUTH EVERY MORNING, AND ONE TABLET BEFORE BEDTIME 180 Tablet 1 12/25/2023 5 Active Metoprolol Succinate ER 50 MG Oral Tablet Extended Release 24 Hour (toPROL XL) TAKE ONE TABLET BY MOUTH EVERY DAY 90 Tablet 3 01/08/2024 5 Active Trelegy Ellipta 100-62.5-25 MCG/ACT Aerosol Powder Breath Activated (Fluticasone-Umeclid inium-Vilanterol)Ind ications:COPD, group B, by GOLD 2017 classification ([facility]) INHALE ONE PUFF BY MOUTH EVERY MORNING 180 Each 2 01/16/2024 5 Active Furosemide 40 MG Oral Tablet (Lasix)Indications:C hronic diastolic CHF (congestive heart failure) ([facility]) TAKE TWO TABLETS BY MOUTH EVERY [...] Moderate episode of recurrent major depressive disorder ([facility]) TAKE ONE CAPSULE BY MOUTH EVERY DAY 90 Capsule 3 03/17/2024 5 Active Hospital, Clinic, or Other Facility Administered Medication Ordered Dose Route Frequency Start Date End Date Status Albuterol Sulfate (Proventil) (5 MG/ML) 0.5% *conc* inhalation solution 2.5 mgIndications:COPD, group B, by GOLD 2017 classification ([facility]),Chronic respiratory failure with hypoxia, on home oxygen therapy ([facility]) 2.5 mg NEBULIZER PRN 11/26/2023 11/25/2024 Acti ve Albuterol Sulfate (Proventil) (2.5 MG/3ML) 0.083% inhalation solution 2.5 mgIndications:COPD, group B, by GOLD 2017 classification ([facility]),Chronic respiratory failure with hypoxia, on home oxygen therapy ([facility]) 2.5 mg NEBULIZER PRN 11/26/2023 11/25/2024 Acti ve documented as of this encounter (statuses as of 05/03/2024) Active Problems Problem Noted Date Diagnosed Date [...] 68 11/22/2020 Coronary artery disease invo lving [place] coronary artery without angina pectoris 11/22/2020 Last [...] as of this encounter (statuses as of 05/03/2024) Resolved Problems Problem Noted Date Diagnosed Date Resolved Date COPD, severity to be determined 08/19/2022 09/18/2023 Overview: Per COPD GOLD Classification Last Assessment & Plan: "RED FLAG" COPD symptoms: Cough ("I get a different kind of cough than what I' have every day") Wheezing ("You can hear the whistling across the room") Medication Regimen All Classes - COLE Class D - Inhaled Vosawbiejwocdl-FDDI-JAVQ Combination Inhaler (Trellegy) Remote Patient Monitoring Vendor: No Connected RPM Device(s): No current devices Self-Management plan Other/Additional Comments: rescue inhaler, contact [facility] Exacerbation plan Chest Xray Additional [...] hypoxia on pl Chronic narcotic use 11/22/2020 021 Long-term insulin use 11/22/20202020 Chronic diastolic CHF (conge stive heart failure) 11/22/2020 08/22/2023 HTN, goal below 140/90 11/22/202009/10 Stenosis of left subclavian artery 11/22/2020 10/04/2022 Type 2 diabetes mellitus wit h stage 3a chronic kidney disease, with long-term current use of insulin 11/22/2020 08/23/2021 Overview: Per CKD protocol documented as of this encounter (statuses as of 05/03/2024) Immunizations Name Administration Dates Next Due COVID-19, mRNA, LNP-s, PF, B ooster, 100mcg/0.5mg (Moderna) 08/14/2021 Covid-19 Ad26, Single Dose (Velma/J&J) 01/20/2021 Pneumococcal Conjugate Vacc, 13 Valent (Prevnar) 02/15/2021 Pneumococcal Polysaccharide PPV23 (Pneumovax) 07/31/2021 Seasonal Influenza Virus Vac cine, Unspecified Formulation 07/25/2019,06/05/2018,06/30/2017,06/25 Seasonal Influenza, Quadriva lent Hd (Fluzone Hd) [...] - Inhaled Oxygen Concentration - - Weight - - Height 161.3 cm (5' 3.5") 05/03/2024 1:06 PM EDT Body Mass Index - - documented in this encounter Progress Notes * Ariel Ireland MD - 05/03/2024 2:22 PM EDT Images from the original note were not included. Patient location: HOME. I was in a hospital or clinic location. After connecting through televideo,patient was verified with two unique identifiers. Patient (or authorized legal food service representative) was then informed that this was a Telemedicine visit and being conducted confidentially over secure lines. Methods to assure confidentiality were taken. Patient acknowledged consent and understanding of pr ivacy and security of the Telemedicine visit. The patient agreed to participate. 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 PFT 04/2024: 79-year-old female, BMI 37, history of COPD and chronic respiratory failure with hypoxia. Forty-four pack-year smoking history quit 23 years ago. Retired RN, on 3 L continuous oxygen. Pulmonary function testing shows moderate restrictive ventilatory pattern. FEV1 is 1.18 L, 63% of predicted. Positive bronchodilator response noted only in smaller airways. Lung volume study consistent with moderate restriction. Flow volume loop shows moderate restriction. Severe gas transfer defect noted with persists after adjustment for alveolar volume. No hyperinflation/air trapping is noted. Maximal inspiratory pressure was -32, while maximal expiratory pressure was 56. Overall impression: Moderate restrictive ventilatory pattern with severe gas transfer defect.This interpretation has been electronically signed: ARIEL IRELAND DR. 05/01/2024 06:56:54 PM Patient describes episodic cough, nasal congestion with purulent sinus drainage, compliant with current bronchodilator regimen including Trelegy and rescue albuterol. Also compliant with home oxygen therapy. Was not able to tolerate CPAP therapy in the past. Sedentary lifestyle. Importance of compliance with current bronchodilator regimen and oxygen therapy was discussed. Maintaining aspiration precautions and fall precautions was discussed. We will complete 10 day course ofdoxycycline antibiotic therapy for recurrent sinusitis. Baseline pulmonary diagnostic workup including PFT and chest x-ray will be done. Last chest x-ray was in 2012. Patient does not recall having any recent pulmonary function testing. Patient will be followed up in 6 weeks to reassess symptoms status, review results of above-mentioned diagnostic workup and discuss further management plan. Patient was advised to contact the office with any change in respiratory symptoms status. Assessment COPD, group B, by GOLD 2017 classification ([facility]) (Primary) Chronic respiratory failure with hypoxia, on home oxygen therapy ([facility]) Type 2 diabetes mellitus with stage 3b chronic kidney disease, with long-term current use of insulin ([facility]) Paroxysmal atrial fibrillation ([facility]) Obesity, morbid (more than 100 lbs over ideal weight or BMI > 40) (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 | For: Video to Home, Clinic Visit | Check-out note: tor Ireland MD Subjective CC: Chief Complaint Patient presents with Follow Up HPI: Nursing Notes: Adela Stearns LPN 05/03/24 1314 Signed Pt for video visit for COPD, chronic respiratory failure with hypoxia. Interm History/Respiratory Symptoms Cough: occasional, clear phlegm Hemoptysis: no Sinus Symptoms: congestion, occasional Hospitalizations: no ED Trips: no Triggers: exertion, humidity, smoke Nocturnal: occasional sob, sleeps with 2 pillows CPAP/BiPAP/O2: O2 3LPM continuous DME Supplier: [employer] Flu Vaccine: 2022 Pneumovax: 2020 Prevnar: 2020 COVID 19: x2 [facility] Cat Question 05/03/2024 1:10 PM EDT - Filed by Adela Stearns LPN When do you become breathless? (4) I am too breathless to leave the house or I am breathless when dressing How frequently do you cough? (1) Do you have phlegm in your chest? (1) Is your chest tight? (1) How breathless do you become when walking up a hill or steps? (5) - When I walk up a hill or one flight of stairs I am very breathless How limited are you doing activities at home? (5) - I am very limited doing activities at home How confident are you leaving home with your lung condition? (1) How soundly do you sleep? (1) How much energy do you have? (4) Total MMRC Score (range: 0 - 4) 4 Total CAT Score (range: 0 - 40) 19 Objective Filed Vitals: 05/03/24 1306 Height: 1.613 m (5' 3.5") Exam: Const: No signs of acute distress present. Head/Face: Normal on inspection. Eyes: Conjunctivae clear. Pupils equal round and reactive to light. ENMT: Oropharynx: No erythema, exudate or masses. Posterior pharynx is normal. Neck: Supple and symmetric. Resp: Respiratory examination as outlined above CV: Rate is regular. Rhythm is regular. No heart murmur appreciated. Extremities: No edema of the lower limbs bilaterally. Skin: Skin is warm and dry. Neuro: Coordination normal. No involuntary movement. Psych: Patient's attitude is cooperative. Mood is normal. Affect is normal. Tests reviewed with the patient: No imaging results in the last 6 months Available Radiologic data was reviewed by me in PACS. The images were shown to the patient and findings were discussed with the patient. HOME MEDICATIONS: FLUoxetine HCl 20 MG Oral Capsule (PROzac) Clopidogrel Bisulfate 75 MG Oral Tablet (pLAVix) dilTIAZem HCl ER Coated Beads 120 MG Oral Capsule Extended Release 24 Hour (Cardizem CD) Omeprazole 20 MG Oral Capsule Delayed Release (PriLOSEC) Ezetimibe 10 MG Oral Tablet (Zetia) Furosemide 40 MG Oral Tablet (Lasix) Trelegy Ellipta 100-62.5-25 MCG/ACT Aerosol Powder Breath Activated (Ktwsyrkgnzj-Nsyhvaivvotq-Ksdnhaqyqs) Metoprolol Succinate ER 50 MG Oral Tablet Extended Release 24 Hour (toPROL XL) Spironolactone 25 MG Oral Tablet (Aldactone) Atorvastatin Calcium 40 MG Oral Tablet (Lipitor) Tresiba FlexTouch 100 UNIT/ML Subcutaneous Solution Pen-injector (Insulin Degludec) traZODone HCl 50 MG Oral Tablet (Desyrel) BD Pen Needle Stephanie U/F 32G X 4 MM (Insulin Pen Needle) NovoLOG FlexPen 100 UNIT/ML Subcutaneous Solution Pen-injector (insulin aspart) Warfarin Sodium 2.5 MG Oral Tablet (Coumadin) BD Insulin Syringe U/F 31G X 5/16" 0.5 ML (Insulin Syringe-Needle U-100) Ketoconazole 2 % External Cream DIURETIC TITRATION PLAN HYDROcodone-Acetaminophen 5-325 MG Oral Tablet Senna 8.6 MG Oral Capsule Albuterol Sulfate 108 (90 Base) MCG/ACT Inhalation Aerosol Powder Breath Activated Calcium Carbonate-Vitamin D 600-200 MG-UNIT Oral Tablet Ocuvite-Lutein Oral Tablet Insulin Syringes (Disposable) U-100 1 ML oxygen IN GAS Magnesium Oxide 400 (240 Mg) MG Oral Tablet FreeStyle Robbin 2 Sensor OneTouch Delica Lancets 30G OneTouch Verio In Vitro Strip (Glucose Blood) Acetaminophen 325 MG Oral Tablet (Tylenol) Ferrous Sulfate 325 (65 Fe) MG Oral Tablet (Feosol) Multivitamin Adult Oral Tablet [place] 3 1200 MG Oral Capsule Saline Nasal [place] 0.65 % Nasal Solution Albuterol Sulfate (Proventil) (2.5 MG/3ML) 0.083% inhalation solution 2.5 mg Albuterol Sulfate (Proventil) (5 MG/ML) 0.5% *conc* inhalation solution 2.5 mg ROS: No reported history of Hemoptysis, Hematemesis, Melena No reported history of Dysuria, Hematuria, Flank Pain No reported history of chronic headache, seizures No reported history of Fall or trauma . No reported history of recent change in weight or appetite. Past Medical History: Diagnosis Date COPD (chronic obstructive pulmonary disease) (HCC) Heart attack (HCC) 2019 Rheumatic heart disease Past Surgical History: Procedure Laterality Date CARDIAC STENT PLACEMENT, ATHERECTOMY, 1 VESSEL 2019 3 stents placed 2019. Had 1 stent placed prior to that. Total 4 stents. IA APPENDECTOMY IA DELIVERY ONLY 5 c-sections IA CHOLECYSTECTOMY gallbladder 40yrs at [place] CORONARY ARTERY BYP W/VEIN & ARTERY GRAFT 1 VEIN IA REPLACEMENT OF MITRAL VALVE 2000 IA TOTAL ABDOMINAL HYSTERECT W/WO RMVL TUBE OVARY Social History Socioeconomic History Marital status: Tobacco Use Smoking status: Former Current packs/day: 0.00 Average packs/day: 1 pack/day for 44.6 years (44.6 ttl pk-yrs) Types: Cigarettes Start date: [birth year]07/1958 Quit date: 09/08/2000 Years since quittin.6 Smokeless tobacco: Never Vaping Use Vaping status: Never Used Substance and Sexual Activity Alcohol use: Not Currently Drug use: Not Currently Social History Narrative >10 yrs Kids 4 lost 3 at Social Determinants of Health Financial Resource Strain: Low Risk (08/19/2023) Financial Resource Strain Do you have any trouble paying for your medications, or do you think you might in the future? (Adult - for ages 18 years and over): No Food Insecurity: No Food Insecurity (08/19/2023) Food Insecurity Do you need food for this week? (Adult - for ages 18 years and over): No Transportation Needs: No Transportation Needs (08/19/2023) Transportation Needs Do you have trouble getting a ride to medical visits or work? (Adult - for ages 18 years and over):Never True Social Connections: Socially Integrated (08/19/2023) Social Connections How often do you feel lonely or isolated from those around you? (Adult - for ages 18 years and over): Never Housing Stability: Low Risk (08/19/2023) Housing Stability Do you currently live in a group home or have no steady place to sleep at night? (Adult - for ages 18 years and over): No Do you think you are at risk of becoming homeless? (Adult - for ages 18 years and over): No Family History Problem Relation Name Age of Onset Hypertension Mother 50's Diabetes Mother Hypertension Father 43 stroke Glaucoma Sister Katelyn Diabetes Sister Peg Cancer Sister 70 colon ca Diabetes Brother Heart Disorder Daughter a fib and pacer Ear Problems Son Ear Problems Son Ear Problems Son Review of patient's allergies indicates: Allergen Reactions Abhinav Inhibitors Cough Aspirin "delgado" her stomach, had a GI bleed in the past Codeine Morphine Oxycodone Nausea, vomiting, chest pain Ozempic (0.25 Or 0.5 Mg-Dose) [Semaglutide(0.25 Or 0.5mg-Dos)] Diarrhea Severe documented in this encounter Nursing Notes * Adela Stearns LPN - 05/03/2024 1:10 PM EDT Pt for video visit for COPD, chronic respiratory failure with hypoxia. Interm History/Respiratory Symptoms Cough: occasional, clear phlegm Hemoptysis: no Sinus Symptoms: congestion, occasional Hospitalizations: no ED Trips: no Triggers: exertion, humidity, smoke Nocturnal: occasional sob, sleeps with 2 pillows CPAP/BiPAP/O2: O2 3LPM continuous DME Supplier: [employer] Flu Vaccine: 2022 Pneumovax: 2020 Prevnar: 2020 COVID 19: x2 [facility] Cat Question 05/03/2024 1:10 PM EDT - Filed by Adela Stearns LPN When do you become breathless? (4) I am too breathless to leave the house or I am breathless when dressing How frequently do you cough? (1) Do you have phlegm in your chest? (1) Is your chest tight? (1) How breathless do you become when walking up a hill or steps? (5) - When I walk up a hill or one flight of stairs I am very breathless How limited are you doing activities at home? (5) - I am very limited doing activities at home How confident are you leaving home with your lung condition? (1) How soundly do you sleep? (1) How much energy do you have? (4) Total MMRC Score (range: 0 - 4) 4 Total CAT Score (range: 0 - 40) 19 documented in this encounter Plan of Treatment Upcoming Encounters Date Type Department Care Team (Late st Contact Info) Description 05/04/2024 6:30 AM EDT [facility] Clinical Pharmacy Services, [address] [place] [address] [place] [address] 05/18/2024 2:30 PM EDT Home Visit [facility] [address] [place] [address] Nette Dior, RN [address] [place] [address] 07/26/2024 3:00 PM EST Office Visit Nephrology [address] [place] [phone] Sonia Logan MD [address] [place] [address] 08/02/2024 2:30 PM EST Nurse Only Ancillary [address] [place] [phone] [place], Nurse Annual [address] [place] [address] 08/18/2024 2:30 PM EST Cardiac Studies Cardiac Studies, [facility] [address] [place] [address] 08/27/2024 1:20 PM EST Office Visit Family Medicine [address] [place] [phone] Marnie Reyes CRNP [address] [place] [address] [place] [address] 09/07/2024 3:00 PM EST Office Visit Cardiology [address] [place] [address] Ulices Phillips PA-C [address] [place] [address] 09/15/2024 1:00 PM EST Imaging Radiology, [place] [phone] [facility] [place] [address] 03/02/2025 2:20 PM EDT Office Visit Family [address] [place] [phone] Edith Osuna MD [address] [place] [address] [place] [phone] Health Maintenance Due Date Last Done Comments Diabetic Foot Exam 05/31/2023 05/31/2022, 07/31/2021 CKD PHOS USE SMARTSET 55550 10/04/2023 10/04/2022, 1 09/30/2020 CKD HGB USE SMARTSET 39408 02/06/202402/05, 02/05/2023, 10/04/2022, Additional history exists *BISPHONATE OR OTHER ACCEPTABLE MEDICATION NEEDED FOR OSTEOPOROSIS (REFER TO SMARTSET #1146) 02/28/2024 Influenza Vaccine (FLU shot) (#1) 2024 05/29/2023, 05/31/2022, 07/31/2021, Additional history exists GFR 06/30/2024 12/30/2023, 01/08, 10/04/2022, Additional history exists HbA1c 06/30/2024 12/30/2023, 01/08, 05/31/2022, Additional history exists DXA Scan 07/03/2024 07/03/2022, 07/03/2022 Adult Wellness Visit 07/30/2024 07/30/2023, 07/22/20 22 Depression Monitoring 07/30/2024 07/30/2023 Albumin/Creatinine Ratio 08/29/2024 [...] D LEVEL ONCE IN A LIFETIME-USE SMARTSET# [id number] Completed 02/05/2023 Alpha-1 Antitrypsin Discontinued HPV (Gardasil) [...] as of this encounter Visit Diagnoses Diagnosis Chronic respiratory failure with hypoxia, on home oxygen therapy (HCC)- Primary documented in this encounter Care Teams Greens Tier Relationship Specialty Start Date End Date Edith Osuna MD [address] [place] [address] [place] [phone] PCP - General Family Medicine 02/15/21 documented as of this encounter
--- OUTSIDE RECORDS SUMMARY | 2024-05-12 05:15 | External Medical Summary | Summary of Care ---
Author Name Unknown Organization [facility] Address [address] [place] [address] Phone [phone] Care Team Providers Care Studio Data Analyst Name Role Phone Edith Osuna MD Primary Care Prov ider Reason for Visit * Reason Onset Date Comments Appointment 04/08/2024 Encounter Details Date Type Department Care Team (Late st Contact Info) Description 04/08/2024 Telephone [facility] [address] [place] [address] Services, Scheduling [address] [place] [address] Appointment Allergies Active Allergy Reactions Criticality Noted Date Comments Abhinav Inhibitors Cough 12/25/2021 Aspirin 02/15/2021 "delgado" her stomach, had a GI bleed in the past Codeine 11/22/2020 Morphine 11/22/2020 Oxycodone 11/22/2020 Nausea, vomiting, chest pain Semaglutide(0.25 Or 0.5mg-Dos) Diarrhea 10/04/2022 Severe documented as of this encounter (statuses as of 04/08/2024) Medications Medication Sig Dispensed Refills Start Date End Date Status Ferrous Sulfate 325 (65 Fe) MG Oral Tablet (Feosol)Indications: anemia Take 1 Tablet by mouth daily with breakfast. 30 Tab 11/22/2020 Active Multivitamin Adult Oral TabletIndications:venegas pplementation Take by mouth 1 Tablet daily . 30 Tab 11/22/2020 Active Saline Nasal [place] 0.65 % Nasal SolutionIndications: for nasal dryness or congestion Administer 2 Sprays into each nostril in the morning and 2 Sprays at noon and 2 Sprays in the evening and 2 Sprays before bedtime. for nasal dryness or congestion. 60 mL 11/22/2020 Active [place] 3 1200 MG Oral CapsuleIndications:[facility] e[facility] health [...] hemoglobin A1c goal of less than 8.0% (HCC) Use to test blood sugar 3-4 times a day dx E11.9 400 Each 3 03/13/2021 Active OneTouch Verio In Vitro Strip (Glucose Blood)Indications:Ty pe 2 diabetes mellitus with hemoglobin A1c goal of less than 8.0% (HCC) Use to test blood sugar 3-4 times [...] hemoglobin A1c goal of less than 8.0% (HCC) Twice a day 200 Each 1 11/23/2021 [...] all other days or as directed by antico clinic 135 Tablet 3 09/24/2023 Active BD [...] DAY AT BEDTIME 90 Tablet 1 11/18/2023 5 Active Tresiba FlexTouch 100 UNIT/ML Subcutaneous Solution Pen-injector (Insulin Degludec)Indications :Type 2 diabetes mellitus with hemoglobin A1c goal of less than 8.0% ([facility]) inject under the skin 42 units before bedtime 45 mL 1 11/26/2023 Active Atorvastatin Calcium 40 MG Oral Tablet (Lipitor) Take 1 Tablet by mouth in the morning. 90 Tablet 1 12/11/2023 Active Spironolactone 25 MG Oral Tablet (Aldactone)Indicatio ns:Chronic diastolic CHF (congestive heart failure) ([facility]) TAKE ONE TABLET BY MOUTH EVERY MORNING, AND ONE TABLET BEFORE BEDTIME 180 Tablet 1 12/25/2023 5 Active Metoprolol Succinate ER 50 MG Oral Tablet Extended Release 24 Hour (toPROL XL) TAKE ONE TABLET BY MOUTH EVERY DAY 90 Tablet 3 01/08/2024 5 Active Trelegy Ellipta 100-62.5-25 MCG/ACT Aerosol Powder Breath Activated (Fluticasone-Umeclid inium-Vilanterol)Ind ications:COPD, group B, by GOLD 2017 classification ([facility]) INHALE ONE PUFF BY MOUTH EVERY MORNING 180 Each 2 01/16/2024 5 Active Furosemide 40 MG Oral Tablet (Lasix)Indications:C hronic diastolic CHF (congestive heart failure) ([facility]) TAKE TWO TABLETS BY MOUTH EVERY MORNING [...] Moderate episode of recurrent major depressive disorder ([facility]) TAKE ONE CAPSULE BY MOUTH EVERY DAY 90 Capsule 3 03/17/2024 5 Active Hospital, Clinic, or Other Facility Administered Medication Ordered Dose Route Frequency Start Date End Date Status Albuterol Sulfate (Proventil) (5 MG/ML) 0.5% *conc* inhalation solution 2.5 mgIndications:COPD, group B, by GOLD 2017 classification ([facility]),Chronic respiratory failure with hypoxia, on home oxygen therapy ([facility]) 2.5 mg NEBULIZER PRN 11/26/2023 11/25/2024 Acti ve Albuterol Sulfate (Proventil) (2.5 MG/3ML) 0.083% inhalation solution 2.5 mgIndications:COPD, group B, by GOLD 2017 classification ([facility]),Chronic respiratory failure with hypoxia, on home oxygen therapy ([facility]) 2.5 mg NEBULIZER PRN 11/26/2023 11/25/2024 Acti ve documented as of this encounter (statuses as of 04/08/2024) Active Problems Problem Noted Date Diagnosed Date COPD, group B, by GOLD 2017 classification 09/15 Overview: Per COPD GOLD Classification Age-related osteoporosis wit hout current pathological fracture 02/05/2023 Last Assessment & Plan: Currently on prolia injections Chronic respiratory failure with hypoxia, on home oxygen therapy 10/04/2022 Overview: Wearing 3L continuously Last Assessment & Plan: Wearing 3L continuously Subclinical hypothyroidism 10/04/2022 History of [place] (myocardial infarction) 05/31/2022 Type 2 diabetes mellitus [...] 68 11/22/2020 Coronary artery disease invo lving [place] coronary artery without angina pectoris 11/22/2020 Last [...] as of this encounter (statuses as of 04/08/2024) Resolved Problems Problem Noted Date Diagnosed Date Resolved Date COPD, severity to be determined 08/19/2022 09/18/2023 Overview: Per COPD GOLD Classification Last Assessment & Plan: "RED FLAG" COPD symptoms: Cough ("I get a different kind of cough than what I' have every day") Wheezing ("You can hear the whistling across the room") Medication Regimen All Classes - COLE Class D - Inhaled Ryayxtdjbsxrxf-LNSO-KFPS Combination Inhaler (Trellegy) Remote Patient Monitoring Vendor: No Connected RPM Device(s): No current devices Self-Management plan Other/Additional Comments: rescue inhaler, contact [facility] Exacerbation plan Chest Xray Additional Comments: [...] as of this encounter (statuses as of 04/08/2024) Immunizations Name Administration Dates Next Due COVID-19, [...] Used Date Smoking Tobacco: Former Cigarettes 1 45 0 [birth year]07/1958 - 09/08/2000 Smokeless Tobacco: Never [...] on file documented as of this encounter Miscellaneous Notes * Telephone Encounter - Ana Samson OSA - 04/08/2024 11:51 AM EDT Per request to rs appt for HV on 04/09. Rs pt to be seen on 04/12 at 10 AM. LMOM asked pt to cb and confirm new time works for her. documented in this encounter Plan of Treatment Upcoming Encounters Date Type Department Care Team (Late st Contact Info) Description 04/12/2024 10:00 AM EDT Home Visit [facility], [facility] [address] [place] [address] Nette Dior, RN [address] [place] [address] 04/27/2024 6:30 AM EDT Anticoagulation Centralized Clinical Pharmacy Services, [facility] Sears [address] [place] [address] [place] [address] [facility], [address] [place] [address] 04/29/2024 11:00 AM EDT PulmDiagnostic Pulmonary Function Lab, [facility] [address] [place] [address] [place], [address] [place] [address] 05/03/2024 2:00 PM EDT Office Visit Pulmonary Medicine, [facility] [address] [place] [address] Ariel Wing MD [address] [place] [address] 07/26/2024 3:00 PM EST Office Visit Nephrology [address] [place] [address] Sonia Logan MD [address] [place] [address] 08/02/2024 2:30 PM EST Nurse Only Ancillary [address] [place] [address] [place], Nurse Annual [address] [place] [address] 08/18/2024 2:30 PM EST Cardiac Studies Cardiac Studies, [facility] [address] [place] [address] 08/27/2024 1:20 PM EST Office Visit Family Medicine [address] [place] [phone] Marnie Reyes CRNP [address] [place] [address] [place] [address] 09/07/2024 3:00 PM EST Office Visit Cardiology [address] [place] [address] Ulices Phillips PAHusseinC [address] [place] [address] 09/15/2024 1:00 PM EST Imaging Radiology, [address] [place] [address] 03/02/2025 2:20 PM EDT Office Visit Family Medicine [address] [place] [phone] Edith Osuna MD [address] [place] [address] [place] [address] Health Maintenance Due Date Last Done Comments Diabetic Foot Exam 05/31/2023 05/31/2022, 07/31/2021 CKD PHOS USE SMARTSET 18802 10/04/2023 10/04/2022, 1 09/30/2020 CKD HGB USE SMARTSET 31664 02/06/202402/05, 02/05/2023, 10/04/2022, Additional history exists *BISPHONATE OR OTHER ACCEPTABLE MEDICATION NEEDED FOR OSTEOPOROSIS (REFER TO SMARTSET #1146) 02/28/2024 Influenza Vaccine (FLU shot) (#1) 2024 05/29/2023, 05/31/2022, 07/31/2021, Additional history exists GFR 06/30/2024 12/30/2023, 01/08, 10/04/2022, Additional history exists HbA1c 06/30/2024 12/30/2023, 01/08, 05/31/2022, Additional history exists DXA Scan 07/03/2024 07/03/2022, 07/03/2022 Depression Monitoring 07/30/2024 07/30/2023 Albumin/Creatinine Ratio 08/29/2024 [...] D LEVEL ONCE IN A LIFETIME-USE SMARTSET# 77730 Completed 02/05/2023 Alpha-1 Antitrypsin Discontinued HPV (Gardasil) [...] Not on filedocumented as of this encounter Care Teams Studio Data Analyst Relationship Specialty Start Date End Date Edith Osuna MD [address] [place] [address] [place] [phone] PCP - General Family Medicine 02/15/21 documented as of this encounter
--- OUTSIDE RECORDS SUMMARY | 2024-05-12 05:16 | External Medical Summary | Summary of Care ---
Author Name Unknown Organization [facility] Address [address] [place] [address] Phone [phone] Care Team Providers Care Color Straining Bag Washer Name Role Phone Edith Osuna MD Primary Care Prov ider Reason for Visit * Reason Onset Date Comments Health Maintenance 03/08/2024 Encounter Details Date Type Department Care Team (Late st Contact Info) Description 03/08/[address] [phone] Edith Osuna MD [address] [place] [address] [place] [address] Health Maintenance Allergies Active Allergy Reactions Criticality Noted Date Comments Abhinav Inhibitors Cough 12/25/2021 Aspirin 02/15/2021 "delgado" her stomach, had a GI bleed in the past Codeine 11/22/2020 Morphine 11/22/2020 Oxycodone 11/22/2020 Nausea, vomiting, chest pain Semaglutide(0.25 Or 0.5mg-Dos) Diarrhea 10/04/2022 Severe documented as of this encounter (statuses as of 03/08/2024) Medications Medication Sig Dispensed Refills Start Date End Date Status Ferrous Sulfate 325 (65 Fe) MG Oral Tablet (Feosol)Indications: anemia Take 1 Tablet by mouth daily with breakfast. 30 Tab 11/22/2020 Active Multivitamin Adult Oral TabletIndications:venegas pplementation Take by mouth 1 Tablet daily . 30 Tab 11/22/2020 Active Saline Nasal [place] 0.65 % Nasal SolutionIndications: for nasal dryness or congestion Administer 2 Sprays into each nostril in the morning and 2 Sprays at noon and 2 Sprays in the evening and 2 Sprays before bedtime. for nasal dryness or congestion. 60 mL 11/22/2020 Active [place] 3 1200 MG Oral CapsuleIndications:h eart health [...] twice daily 200 Each 1 09/22/2023 Active Clopidogrel Bisulfate 75 MG Oral Tablet (pLAVix) TAKE ONE TABLET BY MOUTH EVERY DAY 90 Tablet 1 09/23/2023 5 Active Warfarin Sodium 2.5 MG Oral Tablet (Coumadin)Indication s:Paroxysmal atrial fibrillation (HCC),H/O mitral valve replacement with mechanical valve Take 2.5mg (1 tablet) on Mon,Wed and Fri and 2 tablets (5mg) all other days or as directed by anticoag clinic 135 Tablet 3 09/24/2023 Active FLUoxetine HCl 20 MG Oral Capsule (PROzac)Indications: Moderate episode of recurrent major depressive disorder (HCC) TAKE ONE CAPSULE BY MOUTH EVERY DAY 90 Capsule 1 09/25/2023 5 Active BD Pen Needle Stephanie U/F 32G [...] hemoglobin A1c goal of less than 8.0% ([facility]) inject under the skin 42 units before bedtime 45 mL 1 11/26/2023 Active Atorvastatin Calcium 40 MG Oral Tablet (Lipitor) Take 1 Tablet by mouth in the morning. 90 Tablet 1 12/11/2023 Active Spironolactone 25 MG Oral Tablet (Aldactone)Indicatio ns:Chronic diastolic CHF (congestive heart failure) ([facility]) TAKE ONE TABLET BY MOUTH EVERY MORNING, AND ONE TABLET BEFORE BEDTIME 180 Tablet 1 12/25/2023 Active Metoprolol Succinate ER 50 MG Oral Tablet Extended Release 24 Hour (toPROL XL) TAKE ONE TABLET BY MOUTH EVERY DAY 90 Tablet 3 01/08/2024 Active Trelegy Ellipta 100-62.5-25 MCG/ACT Aerosol Powder Breath Activated (Fluticasone-Umeclid inium-Vilanterol)Ind ications:COPD, group B, by GOLD 2017 classification ([facility]) INHALE ONE PUFF BY MOUTH EVERY MORNING 180 Each 2 01/16/2024 Active Furosemide 40 MG Oral Tablet (Lasix)Indications:C hronic diastolic CHF (congestive heart failure) ([facility]) TAKE TWO TABLETS BY MOUTH EVERY [...] DAY 90 Capsule 1 02/22/2024 5 Active Hospital, Clinic, or Other Facility Administered Medication Ordered Dose Route Frequency Start Date End Date Status Albuterol Sulfate (Proventil) (5 MG/ML) 0.5% *conc* inhalation solution 2.5 mgIndications:COPD, group B, by GOLD 2017 classification ([facility]),Chronic respiratory failure with hypoxia, on home oxygen therapy ([facility]) 2.5 mg NEBULIZER PRN 11/26/2023 11/25/2024 Acti ve Albuterol Sulfate (Proventil) (2.5 MG/3ML) 0.083% inhalation solution 2.5 mgIndications:COPD, group B, by GOLD 2017 classification ([facility]),Chronic respiratory failure with hypoxia, on home oxygen therapy ([facility]) 2.5 mg NEBULIZER PRN 11/26/2023 11/25/2024 Acti ve documented as of this encounter (statuses as of 03/08/2024) Active Problems Problem Noted Date Diagnosed Date COPD, group B, by GOLD 2017 classification 09/15 Overview: Per COPD GOLD Classification Age-related osteoporosis wit hout current pathological fracture 02/05/2023 Last Assessment & Plan: Currently on prolia injections Chronic respiratory failure with hypoxia, on home oxygen therapy 10/04/2022 Overview: Wearing 3L continuously Last Assessment & Plan: Wearing 3L continuously Subclinical hypothyroidism 10/04/2022 History of [place] (myocardial infarction) 05/31/2022 Type 2 diabetes mellitus [...] 68 11/22/2020 Coronary artery disease invo lving [place] coronary artery without angina pectoris 11/22/2020 Last [...] as of this encounter (statuses as of 03/08/2024) Resolved Problems Problem Noted Date Diagnosed Date Resolved Date COPD, severity to be determined 08/19/2022 09/18/2023 Overview: Per COPD GOLD Classification Last Assessment & Plan: "RED FLAG" COPD symptoms: Cough ("I get a different kind of cough than what I' have every day") Wheezing ("You can hear the whistling across the room") Medication Regimen All Classes - COLE Class D - Inhaled Kjxeswglasqzkg-SXTS-EILD Combination Inhaler (Trellegy) Remote Patient Monitoring Vendor: No Connected RPM Device(s): No current devices Self-Management plan Other/Additional Comments: rescue inhaler, contact [facility] Exacerbation plan Chest Xray Additional Comments: [...] as of this encounter (statuses as of 03/08/2024) Immunizations Name Administration Dates Next Due COVID-19, [...] encounter Miscellaneous Notes * Telephone Encounter - Funmilayo Arrington LPN - 03/08/2024 1:29 PM EDT Care Gaps Comprehensive Care Outreach Last Office/Telemedicine Visit: 02/25/2024 (in office), 08/12/2023 (telemedicine) Next Office Visit: 08/27/2024 Hemoglobin AIC Results: Lab Results Component Value Date/Time HEMOGLOBIN A1C - [facility] 7.8 (H) 12/30/2023 02:52 PM HEMOGLOBIN A1C - [facility] 7.8 (H) 02/05/2023 03:00 PM HEMOGLOBIN A1C - [facility] 7.9 (H) 05/31/2022 03:19 PM BP Readings from Last 1 Encounters: 02/25/24 100/64 Reviewed Health Maintenance below: Health Maintenance Topic Date Due Diabetic Foot Exam 05/31/2023 CKD PHOS USE SMARTSET 67546 10/04/2023 CKD HGB USE SMARTSET 55790 02/06/2024 *BISPHONATE OR OTHER ACCEPTABLE MEDICATION NEEDED FOR OSTEOPOROSIS (REFER TO SMARTSET #1146) Never done Influenza Vaccine (FLU shot) (1) 05/09/2024 HbA1c 06/30/2024 GFR 06/30/2024 DXA Scan 07/03/2024 Depression Monitoring 07/30/2024 Albumin/Creatinine Ratio 08/29/2024 Labs add phos Dexa oct scheduled Care Gap Outreach Action Taken: Spoke to patient documented in this encounter Plan of Treatment Upcoming Encounters Date Type Department Care Team (Late st Contact Info) Description 03/09/2024 6:10 PM EDT Pharmacy Pharmacy, [address] [place] [address] [place] [address] 03/15/2024 6:30 AM EDT Anticoagulation Centralized Clinical Pharmacy Services, [address] [place] [address] [facility], [address] [place] [address] 03/18/2024 1:00 PM EDT PulmDiagnostic Pulmonary Function Lab, [facility] [address] [facility] [place] [address] [place], [address] [facility] [place] [address] 03/18/2024 3:00 PM EDT Office Visit Pulmonary Medicine, [facility] [address] [facility] [place] [address] Ariel Wing MD [address] [place] [address] 04/09/2024 2:30 PM EDT Home Visit [facility], [facility] [address] [facility] [place] [address] Nette Dior, RN 132 [place] [address] 07/26/2024 3:00 PM EST Office Visit Nephrology [address] [place] [address] Sonia Logan MD 200 [facility] [place] [address] 08/02/2024 2:30 PM EST Nurse Only Ancillary [address] [place] [address] [place], Nurse [address] [place] [address] 08/18/2024 2:30 PM EST Cardiac Studies Cardiac Studies, [facility] [address] [facility] [place] [address] 08/27/2024 1:20 PM EST Office Visit Family Medicine [address] [place] [phone] Marnie Reyes CRNP [address] [place] [address] [place] [address] 09/07/2024 3:00 PM EST Office Visit Cardiology [address] [place] [address] Ulices Phillips PA-C [address] [place] [address] 09/15/2024 1:00 PM EST Imaging Radiology, [address] [place] [address] 03/02/2025 2:20 PM EDT Office Visit Family [address] [place] [phone] Edith Osuna MD [address] [place] [address] [place] [address] Scheduled Orders Name Type Priority Associated Diagnoses Orde r Schedule DEXA SCAN/BONE MINERAL AXIAL Medical Imaging Routine Osteoporosis Expected: 03/08/2024, Expires: 03/08/2025 Health Maintenance Due Date Last Done Comments Diabetic Foot Exam 05/31/2023 05/31/2022, 07/31/2021 CKD PHOS USE SMARTSET 00978 10/04/2023 10/04/2022, 1 09/30/2020 CKD HGB USE SMARTSET 41855 02/06/202402/05, 02/05/2023, 10/04/2022, Additional history exists *BISPHONATE [...] D LEVEL ONCE IN A LIFETIME-USE SMARTSET# 26989 Completed 02/05/2023 Alpha-1 Antitrypsin Discontinued GARDASIL-HPV IMMUNIZATION SERIES Aged Out No longer eligible based on patient's age to complete this topic Hepatitis B Aged Out No longer eligi ble based on patient's age to complete this topic MENINGOCOCCAL (MENACTRA/MENVEO) Aged Out No longer eligible based on patient's age to complete this topic documented as of this encounter Medical Devices Not on filedocumented as of this encounter Visit Diagnoses Diagnosis Osteoporosis- Primary Osteoporosis, unspecified documented in this encounter Care Teams Color Straining Bag Washer Relationship Specialty Start Date End Date Edith Osuna MD [address] [place] [address] [place] [phone] PCP - General Family Medicine 02/15/21 documented as of this encounter
--- OUTSIDE RECORDS SUMMARY | 2024-05-12 05:16 | External Medical Summary | Summary of Care ---
Author Name Unknown Organization [facility] Address [address] [place] [address] Phone [phone] Care Team Providers Care Product Planner Name Role Phone Edith Osuna MD Primary Care Prov ider Reason for Visit * Reason Comments Medication Refill Encounter Details Date Type Department Care Team (Late st Contact Info) Description 03/15/2024 Refill Family Medicine [address] [phone] Edith Osuna MD [address] [place] [address] [place] [address] Encounter for long-term (current) use of medications*; Chronic kidney disease, stage 3b (HCC); Routine medical exam Allergies Active Allergy Reactions Criticality Noted Date Comments Abhinav Inhibitors Cough 12/25/2021 Aspirin 02/15/2021 "delgado" her stomach, had a GI bleed in the past Codeine 11/22/2020 Morphine 11/22/2020 Oxycodone 11/22/2020 Nausea, vomiting, chest pain Semaglutide(0.25 Or 0.5mg-Dos) Diarrhea 10/04/2022 Severe documented as of this encounter (statuses as of 03/16/2024) Medications Medication Sig Dispensed Refills Start Date End Date Status Ferrous Sulfate 325 (65 Fe) MG Oral Tablet (Feosol)Indications :anemia Take 1 Tablet by mouth daily with breakfast. 30 Tab 11/22/2020 Active Multivitamin Adult Oral TabletIndications:s upplementation Take by mouth 1 Tablet daily . 30 Tab 11/22/2020 Active Saline Nasal [place] 0.65 % Nasal SolutionIndications :for nasal dryness or congestion Administer 2 Sprays into each nostril in the morning and 2 Sprays at noon and 2 Sprays in the evening and 2 Sprays before bedtime. for nasal dryness or congestion. 60 mL 11/22/2020 Active Grelton 3 1200 MG Oral CapsuleIndications: heart health Take by mouth 2 Capsules every night at bedtime . 60 Cap 11/22/2020 Active Acetaminophen 325 MG Oral Tablet (Tylenol)Indication s:as needed for pain/fever Take 2 Tablets by mouth every 4 hours as needed for Fever (Temp Greater than ) or Pain, Mild. 100 Tab 11/22/2020 Active OneTouch Delica Lancets 30GIndications:Type 2 diabetes mellitus with hemoglobin A1c goal of less than 8.0% ([facility]) Use to test blood sugar 3-4 times a day dx E11.9 400 Each 3 03/13/2021 Active OneTouch Verio In Vitro Strip (Glucose Blood)Indications:T ype 2 diabetes mellitus with hemoglobin A1c goal of less than 8.0% ([facility]) Use to test blood sugar 3-4 times a day dx e11.9 400 Strip 3 03/13/2021 Active FreeStyle Robbin 2 Sensor Use as directed. Active Magnesium Oxide 400 (240 Mg) MG Oral TabletIndications:C hronic diastolic CHF (congestive heart failure) ([facility]) Take 1 Tab by mouth daily. 28 Tab 5 04/19/2021 Active oxygen IN GAS Use 2 L/min(Oxygen) as directed continuous. Active Insulin Syringes (Disposable) U-100 1 MLIndications:Type 2 diabetes mellitus with hemoglobin A1c goal of less than 8.0% ([facility]) Twice a day 200 Each 1 11/23/2021 Active Ocuvite-Lutein Oral TabletIndications:s upplementation Take by mouth 1 Tablet daily . Active Calcium Carbonate-Vitamin D 600-200 MG-UNIT Oral TabletIndications:s upplementation Take 1 Tablet by mouth in the morning. Active Albuterol Sulfate 108 (90 Base) MCG/ACT Inhalation Aerosol Powder Breath ActivatedIndication s:wheezing Inhale by mouth 2 Puffs every 4 hours . For wheezing 3 Each 3 05/31/2022 Active Senna 8.6 MG Oral Capsule Take 1 Tablet by mouth in the morning. As needed constipation . Active HYDROcodone-Acetami nophen 5-325 MG Oral TabletIndications:D DD (degenerative disc disease), lumbar Take 1 Tablet by mouth every 8 hours as needed (back). 30 Tablet 08/13/2023 Active DIURETIC TITRATION PLAN If no improvement on day 3, contact heart failure managing provider. 1 Each 08/21/2023 Active Ketoconazole 2 % External CreamIndications:ra sh Apply to rash twice a day until clear 60 g 3 09/19/2023 Active BD Insulin Syringe U/F 31G X 5/16" 0.5 ML (Insulin Syringe-Needle U-100) use twice daily 200 Each 1 09/22/2023 Active Warfarin Sodium 2.5 MG Oral Tablet (Coumadin)Indicatio ns:Paroxysmal atrial fibrillation (HCC),H/O mitral valve replacement with mechanical valve Take 2.5mg (1 tablet) on Mon,Wed and Fri and 2 tablets (5mg) all other days or as directed by anticoag clinic 135 Tablet 3 09/24/2023 Active FLUoxetine HCl 20 MG Oral Capsule (PROzac)Indications :Moderate episode of recurrent major depressive disorder (HCC) TAKE ONE CAPSULE BY MOUTH EVERY DAY 90 Capsule 1 09/25/2023 09/24/19 25 Active BD Pen Needle Stephanie U/F 32G [...] DAY AT BEDTIME 90 Tablet 1 11/18/2023 11/18/19 25 Active Tresiba FlexTouch 100 UNIT/ML Subcutaneous Solution Pen-injector (Insulin Degludec)Indication s:Type 2 diabetes mellitus with hemoglobin A1c goal of less than 8.0% (HCC) inject under the skin 42 units before bedtime 45 mL 1 11/26/2023 Active Atorvastatin Calcium 40 MG Oral Tablet (Lipitor) Take 1 Tablet by mouth in the morning. 90 Tablet 1 12/11/2023 Active Spironolactone 25 MG Oral Tablet (Aldactone)Indicati ons:Chronic diastolic CHF (congestive heart failure) (HCC) TAKE ONE TABLET BY MOUTH EVERY MORNING, AND ONE TABLET BEFORE BEDTIME 180 Tablet 1 12/25/2023 12/25/19 25 Active Metoprolol Succinate ER 50 MG Oral Tablet Extended Release 24 Hour (toPROL XL) TAKE ONE TABLET BY MOUTH EVERY DAY 90 Tablet 3 01/08/2024 01/08/20 25 Active Trelegy Ellipta 100-62.5-25 MCG/ACT Aerosol Powder Breath Activated (Fluticasone-Umecli dinium-Vilanterol)I ndications:COPD, group B, by GOLD 2017 classification ([facility]) INHALE ONE PUFF BY MOUTH EVERY MORNING 180 Each 2 01/16/2024 01/16/20 25 Active Furosemide 40 MG Oral Tablet (Lasix)Indications: Chronic diastolic CHF (congestive heart failure) ([facility]) TAKE TWO TABLETS BY MOUTH EVERY MORNING 180 Tablet 1 02/13/2024 Active Ezetimibe 10 MG Oral Tablet (Zetia)Indications: Dyslipidemia, goal LDL below 70 Take 1 Tablet by mouth daily. 100 Tablet 3 02/17/2024 Active Omeprazole 20 MG Oral Capsule Delayed Release (PriLOSEC)Indicatio ns:Gastro-esophagea l reflux disease without esophagitis TAKE ONE CAPSULE BY MOUTH EVERY DAY 1 HOUR BEFORE THE FIRST MEAL OF THE DAY 90 Capsule 1 02/22/2024 02/22/20 25 Active dilTIAZem HCl ER Coated Beads 120 MG Oral Capsule Extended Release 24 Hour (Cardizem CD) TAKE ONE CAPSULE BY MOUTH EVERY DAY 90 Capsule 1 02/22/2024 02/22/20 25 Active Clopidogrel Bisulfate 75 MG Oral Tablet (pLAVix) TAKE ONE TABLET BY MOUTH EVERY DAY 100 Tablet 03/16/2024 03/16/20 25 Active Clopidogrel Bisulfate 75 MG Oral Tablet (pLAVix) TAKE ONE TABLET BY MOUTH EVERY DAY 90 Tablet 1 09/23/2023 03/15/20 24 Discontinu ed(Refill) Hospital, Clinic, or Other Facility Administered Medication Ordered Dose Route Frequency Start Date End Date Status Albuterol Sulfate (Proventil) (5 MG/ML) 0.5% *conc* inhalation solution 2.5 mgIndications:COPD, group B, by GOLD 2017 classification ([facility]),Chronic respiratory failure with hypoxia, on home oxygen therapy ([facility]) 2.5 mg NEBULIZER PRN 11/26/2023 11/25/2024 Acti ve Albuterol Sulfate (Proventil) (2.5 MG/3ML) 0.083% inhalation solution 2.5 mgIndications:COPD, group B, by GOLD 2017 classification ([facility]),Chronic respiratory failure with hypoxia, on home oxygen therapy ([facility]) 2.5 mg NEBULIZER PRN 11/26/2023 11/25/2024 Acti ve documented as of this encounter (statuses as of 03/16/2024) Active Problems Problem Noted Date Diagnosed Date COPD, group B, by GOLD 2017 classification 09/15 Overview: Per COPD GOLD Classification Age-related osteoporosis wit hout current pathological fracture 02/05/2023 Last Assessment & Plan: Currently on prolia injections Chronic respiratory failure with hypoxia, on home oxygen therapy 10/04/2022 Overview: Wearing 3L continuously Last Assessment & Plan: Wearing 3L continuously Subclinical hypothyroidism 10/04/2022 History of [place] (myocardial infarction) 05/31/2022 Type 2 diabetes mellitus [...] 68 11/22/2020 Coronary artery disease invo lving [place] coronary artery without angina pectoris 11/22/2020 Last [...] as of this encounter (statuses as of 03/16/2024) Resolved Problems Problem Noted Date Diagnosed Date Resolved Date COPD, severity to be determined 08/19/2022 09/18/2023 Overview: Per COPD GOLD Classification Last Assessment & Plan: "RED FLAG" COPD symptoms: Cough ("I get a different kind of cough than what I' have every day") Wheezing ("You can hear the whistling across the room") Medication Regimen All Classes - COLE Class D - Inhaled [id number] Combination [facility]haler [facility] Remote Patient Monitoring Vendor: No Connected RPM Device(s): No current devices Self-Management plan Other/Additional Comments: rescue inhaler, contact [facility] Exacerbation plan Chest Xray Additional Comments: Recent [...] as of this encounter (statuses as of 03/16/2024) Immunizations Name Administration Dates Next Due COVID-19, [...] encounter Miscellaneous Notes * Telephone Encounter - Marlyn Smith RPh - 03/16/2024 11:14 AM EDTSigned Prescriptions: Disp Refills Clopidogrel Bisulfate 75 MG Oral Tablet (p*100 Ta*0 Sig: TAKE ONE TABLET BY MOUTH EVERY DAYAuthorizing Provider: EDITH OSUNA User: MARLYN SMITH * Telephone Encounter - Marlyn Smith RPh - 03/16/2024 11:12 AM EDT RX authorized. Zero refills given until repeat labs are obtained. Thank you, Marlyn Smith, PharmD Clinical Pharmacist [facility] ([facility]) 03/16/24 11:14 AM [phone] documented in this encounter Plan of Treatment Upcoming Encounters Date Type Department Care Team (Late st Contact Info) Description 03/18/2024 1:00 PM EDT PulmDiagnostic Pulmonary Function Lab, [facility] [address] [address] [address], [address] [place] [address] 03/18/2024 3:00 PM EDT Office Visit Pulmonary Medicine, [facility] [place] [address] Ariel Wing MD [address] [place] [address] 03/22/2024 6:30 AM EDT Anticoagulation [facility]acy Services, Luna Sears [address] [place] [address] [place] [address] Ccps, [address] [place] [address] 04/06/2024 6:10 PM EDT Pharmacy Pharmacy, [address] [place] [address] [place] [address] 04/09/2024 2:30 PM EDT [facility] Visit [facility], [facility] [place] [address] Nette Dior, OCTAVIO 132 [facility] [place] [address] 07/26/2024 3:00 PM EST Office Visit Nephrology [address] [place] [address] Sonia Logan MD [address] [facility] [place] [address] 08/02/2024 2:30 PM EST Nurse Only Ancillary [address] [place] [address] [place], Nurse [address] [place] [address] 08/18/2024 2:30 PM EST Cardiac Studies Cardiac Studies, [facility] [address] [place] [address] 08/27/2024 1:20 PM EST Office Visit Family Medicine [address] [place] [phone] Marnie Reyes CRNP [address] [place] [address] [place] [address] 09/07/2024 3:00 PM EST Office Visit Cardiology [address] [place] [address] Ulices Phillips PA-C [address] [place] [address] 09/15/2024 1:00 PM EST Imaging Radiology, [address] [place] [address] 03/02/2025 2:20 PM EDT Office Visit Family [address] [place] [phone] Edith Osuna MD [address] [place] [address] [place] [address] Scheduled Orders Name Type Priority Associated Diagnoses Orde r Schedule CBC WITH WBC DIFFERENTIAL Lab Routine Encounter for long-term (current) use of medications Chronic kidney disease, stage 3b (HCC) Routine medical exam Expected: 03/30/2024 (Approximate), Expires: 03/16/2025 Health Maintenance Due Date Last Done Comments Diabetic Foot Exam 05/31/2023 05/31/2022, 07/31/2021 CKD PHOS USE SMARTSET 19148 10/04/2023 10/04/2022, 1 09/30/2020 CKD HGB USE SMARTSET 13666 02/06/202402/05, 02/05/2023, 10/04/2022, Additional history exists *BISPHONATE [...] D LEVEL ONCE IN A LIFETIME-USE SMARTSET# 01377 Completed 02/05/2023 Alpha-1 Antitrypsin Discontinued HPV (Gardasil) [...] as of this encounter Visit Diagnoses Diagnosis Encounter for long-term (current) use of medications- Primary Encounter for long-term (current) use of other medications Chronic kidney disease, stage 3b (HCC) Routine medical exam Routine general medical examination at a health care facility documented in this encounter Care Teams Product Planner Relationship Specialty Start Date End Date Edith Osuna MD [address] [place] [address] [place] [address] PCP - General Family Medicine 02/15/21 documented as of this encounter
--- OUTSIDE RECORDS SUMMARY | 2024-05-12 05:16 | External Medical Summary | Summary of Care ---
Author Name Unknown Organization [facility] Address [address] [place] [facility] [place] [place] [address] Phone [phone] Care Team Providers Care Digital Service Engineer Name Role Phone Edith Osuna MD Primary Care Prov ider Encounter Details Date Type Department Care Team (Late st Contact Info) Description 03/29/2024 Result Scan Unspecified Department Edith Osuna MD [address] [place] [address] [place] [address] <No scans attached> Allergies Active Allergy Reactions Criticality Noted Date Comments Abhinav Inhibitors Cough 12/25/2021 Aspirin 02/15/2021 "delgado" her stomach, had a GI bleed in the past Codeine 11/22/2020 Morphine 11/22/2020 Oxycodone 11/22/2020 Nausea, vomiting, chest pain Semaglutide(0.25 Or 0.5mg-Dos) Diarrhea 10/04/2022 Severe documented as of this encounter (statuses as of 03/29/2024) Medications Medication Sig Dispensed Refills Start Date End Date Status Ferrous Sulfate 325 (65 Fe) MG Oral Tablet (Feosol)Indications: anemia Take 1 Tablet by mouth daily with breakfast. 30 Tab 11/22/2020 Active Multivitamin Adult Oral TabletIndications:venegas pplementation Take by mouth 1 Tablet daily . 30 Tab 11/22/2020 Active Saline Nasal [place] 0.65 % Nasal SolutionIndications: for nasal dryness or congestion Administer 2 Sprays into each nostril in the morning and 2 Sprays at noon and 2 Sprays in the evening and 2 Sprays before bedtime. for nasal dryness or congestion. 60 mL 11/22/2020 Active [place] 3 1200 MG Oral CapsuleIndications:[facility] [...] A1c goal of less than 8.0% ([facility]) inject under the skin 42 units before bedtime 45 mL 1 11/26/2023 Active Atorvastatin Calcium 40 MG Oral Tablet (Lipitor) Take 1 Tablet by mouth in the morning. 90 Tablet 1 12/11/2023 Active Spironolactone 25 MG Oral Tablet (Aldactone)Indicatio ns:Chronic diastolic CHF (congestive heart failure) ([facility]) TAKE ONE TABLET BY MOUTH EVERY MORNING, AND ONE TABLET BEFORE BEDTIME 180 Tablet 1 12/25/2023 5 Active Metoprolol Succinate ER 50 MG Oral Tablet Extended Release 24 Hour (toPROL XL) TAKE ONE TABLET BY MOUTH EVERY DAY 90 Tablet 3 01/08/2024 5 Active Trelegy Ellipta 100-62.5-25 MCG/ACT Aerosol Powder Breath Activated (Fluticasone-Umeclid inium-Vilanterol)Ind ications:COPD, group B, by GOLD 2017 classification ([facility]) INHALE ONE PUFF BY MOUTH EVERY MORNING 180 Each 2 01/16/2024 5 Active Furosemide 40 MG Oral Tablet (Lasix)Indications:C hronic diastolic CHF (congestive heart failure) ([facility]) TAKE TWO TABLETS BY MOUTH [...] episode of recurrent major depressive disorder ([facility]) TAKE ONE CAPSULE BY MOUTH EVERY DAY 90 Capsule 3 03/17/2024 5 Active Hospital, Clinic, or Other Facility Administered Medication Ordered Dose Route Frequency Start Date End Date Status Albuterol Sulfate (Proventil) (5 MG/ML) 0.5% *conc* inhalation solution 2.5 mgIndications:COPD, group B, by GOLD 2017 classification ([facility]),Chronic respiratory failure with hypoxia, on home oxygen therapy ([facility]) 2.5 mg NEBULIZER PRN 11/26/2023 11/25/2024 Acti ve Albuterol Sulfate (Proventil) (2.5 MG/3ML) 0.083% inhalation solution 2.5 mgIndications:COPD, group B, by GOLD 2017 classification ([facility]),Chronic respiratory failure with hypoxia, on home oxygen therapy ([facility]) 2.5 mg NEBULIZER PRN 11/26/2023 11/25/2024 Acti ve documented as of this encounter (statuses as of 03/29/2024) Active Problems Problem Noted Date Diagnosed Date COPD, group B, by GOLD 2017 classification 09/15 Overview: Per COPD GOLD Classification Age-related osteoporosis wit hout current pathological fracture 02/05/2023 Last Assessment & Plan: Currently on prolia injections Chronic respiratory failure with hypoxia, on home oxygen therapy 10/04/2022 Overview: Wearing 3L continuously Last Assessment & Plan: Wearing 3L continuously Subclinical hypothyroidism 10/04/2022 History of [place] (myocardial infarction) 05/31/2022 Type 2 diabetes mellitus [...] 68 11/22/2020 Coronary artery disease invo lving [place] coronary artery without angina pectoris 11/22/2020 Last [...] as of this encounter (statuses as of 03/29/2024) Resolved Problems Problem Noted Date Diagnosed Date Resolved Date COPD, severity to be determined 08/19/2022 09/18/2023 Overview: Per COPD GOLD Classification Last Assessment & Plan: "RED FLAG" COPD symptoms: Cough ("I get a different kind of cough than what I' have every day") Wheezing ("You can hear the whistling across the room") Medication Regimen All Classes - COLE Class D - Inhaled Lgtjbhxscxojeq-[id number] Combination Inhaler (Damonllegy) Remote Patient Monitoring Vendor: No Connected RPM Device(s): No current devices Self-Management plan Other/Additional Comments: rescue inhaler, contact [facility] Exacerbation plan Chest Xray Additional Comments: Recent [...] as of this encounter (statuses as of 03/29/2024) Immunizations Name Administration Dates Next Due COVID-19, [...] on file documented as of this encounter Plan of Treatment Upcoming Encounters Date Type Department Care Team (Late st Contact Info) Description 03/29/2024 6:15 PM EDT Anticoagulation Centralized Clinical Pharmacy Services, [address] [place] [address] [place] [address] 04/05/2024 6:45 PM EDT Anticoagulation Centralized Clinical Pharmacy Services, [facility] [place] [address] [place] [address] [place] [address] [place] [address] 04/06/2024 6:10 PM EDT Pharmacy Pharmacy, [address] [place] [address] [place] [address] 04/09/2024 2:30 PM EDT Home Visit [facility] [address] [place] [address] Nette Dior, RN 132 [facility] [place] [address] 04/29/2024 11:00 AM EDT PulmDiagnostic Pulmonary Function Lab, [facility] [address] [place] [address] [place], Pft 132 [facility] [place] [address] 05/03/2024 2:00 PM EDT Office Visit Pulmonary Medicine, [facility] [address] [place] [address] Ariel Wing MD [address] [facility] [address] 07/26/2024 3:00 PM EST Office Visit Nephrology [address] [place] [address] Sonia Logan MD [address] [place] [address] 08/02/2024 2:30 PM EST Nurse Only Ancillary [address] [place] [address] [place], Nurse Annual [address] [place] [address] 08/18/2024 2:30 PM EST Cardiac Studies Cardiac Studies, [facility] [address] [place] [address] 08/27/2024 1:20 PM EST Office Visit Family Medicine [address] [place] [phone] Marnie Reyes CRNP [address] [place] [address] [place] [address] 09/07/2024 3:00 PM EST Office Visit Cardiology [address] [place] [address] Ulices Phillips PAHusseinC [address] [place] [address] 09/15/2024 1:00 PM EST Imaging Radiology, [place] [address] [place] [address] 03/02/2025 2:20 PM EDT Office Visit Family Medicine [address] [place] [phone] Edith Osuna MD [address] [place] [address] [place] [address] Health Maintenance Due Date Last Done Comments Diabetic Foot Exam 05/31/2023 05/31/2022, 07/31/2021 CKD PHOS USE SMARTSET 30527 10/04/2023 10/04/2022, 1 09/30/2020 CKD HGB USE SMARTSET 67645 02/06/202402/05, 02/05/2023, 10/04/2022, Additional history exists *BISPHONATE OR OTHER ACCEPTABLE MEDICATION NEEDED FOR OSTEOPOROSIS (REFER TO SMARTSET #1146) 02/28/2024 Influenza Vaccine (FLU shot) (#1) 2024 05/29/2023, 05/31/2022, 07/31/2021, Additional history exists GFR 06/30/2024 12/30/2023, 01/08, 10/04/2022, Additional history exists HbA1c 06/30/2024 12/30/2023, 01/08, 05/31/2022, Additional history exists DXA Scan 07/03/2024 07/03/2022, 07/03/2022 Depression Monitoring 07/30/2024 07/30/2023 Albumin/Creatinine Ratio 08/29/202408/29/2 023, 05/31/2022, 08/28/2021, Additional history exists Diabetic Eye Exam 01/06/2025 01/07/2024, , 12/06/2022, Additional history exists O2 ASSESSMENT COMPLETED IN PAST YEAR FOR COPD 02/24/2025 02/25/2024 DTaP,Tdap,and Td Vaccines (2 - Td or Tdap) 11/24/2031 11/23/2021 (Not indicated) Zoster Vaccines Discontinued 03/20/2021 Pneumococcal Vaccine: 65+ Years Completed 07/31/2021, 02/15/2021 COVID-19 Vaccine Discontinued 08/14/2021, 01/20/2021 VITAMIN D LEVEL ONCE IN A LIFETIME-USE SMARTSET# 44048 Completed 02/05/2023 Alpha-1 Antitrypsin Discontinued HPV (Gardasil) [...] Not on filedocumented as of this encounter Procedures Procedure Name Priority Date/Time Associated Diagnosis Comments OUTSIDE LAB RESULTS 03/29/2024 documented in this encounter Results * OUTSIDE LAB RESULTS (03/29/2024) 03/29/2024 Edith Kruse MD LABORATORY documented in this encounter Care Teams Digital Service Engineer Relationship Specialty Start Date End Date Edith Osuna MD [address] [place] [address] [place] [address] PCP - General Family Medicine 02/15/21 documented as of this encounter
--- OUTSIDE RECORDS SUMMARY | 2024-05-12 05:16 | External Medical Summary | Summary of Care ---
Author Name Unknown Organization [facility] Address [address] [place] [address] Phone [phone] Care Team Providers Care Straddle Bug Name Role Phone Edith Osuna MD Primary Care Prov ider Reason for Visit * Reason Comments Appointment Encounter Details Date Type Department Care Team (Late st Contact Info) Description 04/06/2024 6:10 PM EDT Pharmacy Pharmacy, [address] [place] [address] [place] [address] Type 2 diabetes mellitus with hemoglobin A1c goal of less than 8.0% ([facility])* Allergies Active Allergy Reactions Criticality Noted Date Comments Abhinav Inhibitors Cough 12/25/2021 Aspirin 02/15/2021 "delgado" her stomach, had a GI bleed in the past Codeine 11/22/2020 Morphine 11/22/2020 Oxycodone 11/22/2020 Nausea, vomiting, chest pain Semaglutide(0.25 Or 0.5mg-Dos) Diarrhea 10/04/2022 Severe documented as of this encounter (statuses as of 04/06/2024) Medications Medication Sig Dispensed Refills Start Date End Date Status Ferrous Sulfate 325 (65 Fe) MG Oral Tablet (Feosol)Indications: anemia Take 1 Tablet by mouth daily with breakfast. 30 Tab 11/22/2020 Active Multivitamin Adult Oral TabletIndications:venegas pplementation Take by mouth 1 Tablet daily . 30 Tab 11/22/2020 Active Saline Nasal [place] 0.65 % Nasal SolutionIndications: for nasal dryness or congestion Administer 2 Sprays into each nostril in the morning and 2 Sprays at noon and 2 Sprays in the evening and 2 Sprays before bedtime. for nasal dryness or congestion. 60 mL 11/22/2020 Active [place] 3 1200 MG Oral CapsuleIndications:h eart health [...] hemoglobin A1c goal of less than 8.0% ([facility]) inject under the skin 42 units before bedtime 45 mL 1 11/26/2023 Active Atorvastatin Calcium 40 MG Oral Tablet (Lipitor) Take 1 Tablet by mouth in the morning. 90 Tablet 1 12/11/2023 Active Spironolactone 25 MG Oral Tablet (Aldactone)Indicatio ns:Chronic diastolic CHF (congestive heart failure) ([facility]) TAKE ONE TABLET BY MOUTH EVERY MORNING, AND ONE TABLET BEFORE BEDTIME 180 Tablet 1 12/25/2023 5 Active Metoprolol Succinate ER 50 MG Oral Tablet Extended Release 24 Hour (toPROL XL) TAKE ONE TABLET BY MOUTH EVERY DAY 90 Tablet 3 01/08/2024 5 Active Trelegy Ellipta 100-62.5-25 MCG/ACT Aerosol Powder Breath Activated (Fluticasone-Umeclid inium-Vilanterol)Ind ications:COPD, group B, by GOLD 2017 classification ([facility]) INHALE ONE PUFF BY MOUTH EVERY MORNING 180 Each 2 01/16/2024 5 Active Furosemide 40 MG Oral Tablet (Lasix)Indications:C hronic diastolic CHF (congestive heart failure) ([facility]) TAKE TWO TABLETS BY MOUTH EVERY MORNING [...] Moderate episode of recurrent major depressive disorder ([facility]) TAKE ONE CAPSULE BY MOUTH EVERY DAY 90 Capsule 3 03/17/2024 5 Active Hospital, Clinic, or Other Facility Administered Medication Ordered Dose Route Frequency Start Date End Date Status Albuterol Sulfate (Proventil) (5 MG/ML) 0.5% *conc* inhalation solution 2.5 mgIndications:COPD, group B, by GOLD 2017 classification ([facility]),Chronic respiratory failure with hypoxia, on home oxygen therapy ([facility]) 2.5 mg NEBULIZER PRN 11/26/2023 11/25/2024 Acti ve Albuterol Sulfate (Proventil) (2.5 MG/3ML) 0.083% inhalation solution 2.5 mgIndications:COPD, group B, by GOLD 2017 classification ([facility]),Chronic respiratory failure with hypoxia, on home oxygen therapy (HCC) 2.5 mg NEBULIZER PRN 11/26/2023 11/25/2024 Acti ve documented as of this encounter (statuses as of 04/06/2024) Active Problems Problem Noted Date Diagnosed Date COPD, group B, by GOLD 2017 classification 09/15 Overview: Per COPD GOLD Classification Age-related osteoporosis wit hout current pathological fracture 02/05/2023 Last Assessment & Plan: Currently on prolia injections Chronic respiratory failure with hypoxia, on home oxygen therapy 10/04/2022 Overview: Wearing 3L continuously Last Assessment & Plan: Wearing 3L continuously Subclinical hypothyroidism 10/04/2022 History of [place] (myocardial infarction) 05/31/2022 Type 2 diabetes mellitus [...] 68 11/22/2020 Coronary artery disease invo lving [place] coronary artery without angina pectoris 11/22/2020 Last [...] as of this encounter (statuses as of 04/06/2024) Resolved Problems Problem Noted Date Diagnosed Date Resolved Date COPD, severity to be determined 08/19/2022 09/18/2023 Overview: Per COPD GOLD Classification Last Assessment & Plan: "RED FLAG" COPD symptoms: Cough ("I get a different kind of cough than what I' have every day") Wheezing ("You can hear the whistling across the room") Medication Regimen All Classes - COLE Class D - Inhaled Omatpkakrdqitb-PEZI-[id number] Combination Inhaler (Trellegy) Remote Patient Monitoring Vendor: No Connected RPM Device(s): No current devices Self-Management plan Other/Additional Comments: rescue inhaler, contact [facility] Exacerbation plan Chest Xray Additional Comments: Recent [...] as of this encounter (statuses as of 04/06/2024) Immunizations Name Administration Dates Next Due COVID-19, [...] on file documented as of this encounter Progress Notes * Mary Jewell PHARM Tech - 04/06/2024 9:30 AM EDT Fani has not contacted the clinic to schedule/reschedule an appointment for diabetes management per referral from PCP despite multiple attempts to do so by our team. Patient is discharged from [facility] services at this time. Thank you, Mary Jewell Utility Repairer [facility] ([facility] [phone] 04/06/2024,9:31 AM documented in this encounter Plan of Treatment Upcoming Encounters Date Type Department Care Team (Late st Contact Info) Description 04/09/2024 2:30 PM EDT [facility] [address] [place] [address] Nette Dior, OCTAV[place] [address] [place] [address] 04/27/2024 6:30 AM EDT Anticoagulation [facility], Luna Sears [address] [place] [address] [place] [address] [facility], [address] [place] [address] 04/29/2024 11:00 AM EDT PulmDiagnostic Pulmonary Function Lab, [facility] [address] [place] [address] [address], [address] [place] [address] 05/03/2024 2:00 PM EDT Office Visit Pulmonary Medicine, [facility] [address] [place] [address] Ariel Wing MD [address] [facility] [place] [address] 07/26/2024 3:00 PM EST Office Visit Nephrology [address] [place] [address] Sonia Logan MD [address] [place] [address] 08/02/2024 2:30 PM EST Nurse Only Ancillary [address] [place] [address] [place], Nurse [address] [place] [address] 08/18/2024 2:30 PM EST Cardiac Studies Cardiac Studies, [facility] [address] [place] [address] 08/27/2024 1:20 PM EST Office Visit Family Medicine [address] [place] [phone] Marnie Reyes CRNP [address] [place] [address] [place] [address] 09/07/2024 3:00 PM EST Office Visit Cardiology [address] [place] [address] Ulices Phillips PAHusseinC [address] [place] [address] 09/15/2024 1:00 PM EST Imaging Radiology, [address] [place] [address] 03/02/2025 2:20 PM EDT Office Visit Family [address] [place] [phone] Edith Osuna MD [address] [place] [address] [place] [address] Health Maintenance Due Date Last Done Comments Diabetic Foot Exam 05/31/2023 05/31/2022, 07/31/2021 CKD PHOS USE SMARTSET 01844 10/04/2023 10/04/2022, 1 09/30/2020 CKD HGB USE SMARTSET 04625 02/06/202402/05, 02/05/2023, 10/04/2022, Additional history exists *BISPHONATE [...] D LEVEL ONCE IN A LIFETIME-USE SMARTSET# [id number] Completed 02/05/2023 Alpha-1 Antitrypsin Discontinued HPV (Gardasil) [...] as of this encounter Visit Diagnoses Diagnosis Type 2 diabetes mellitus with hemoglobin A1c goal of less than 8.0% (HCC)- Primary documented in this encounter Care Teams Straddle Bug Relationship Specialty Start Date End Date Edith Osuna MD [address] [place] [address] [place] [address] PCP - General Family Medicine 02/15/21 documented as of this encounter
--- OUTSIDE RECORDS SUMMARY | 2024-05-12 05:16 | External Medical Summary | Summary of Care ---
Author Name Unknown Organization [facility] [address] [facility] [address] Phone [phone] Care Team Providers Care Process Supervisor Name Role Phone Edith Osuna MD Primary Care Prov ider Encounter Details Date Type Department Care Team (Late st Contact Info) Description 03/02/2024 Orders Only PATIENT PORTAL DO NOT DELETE THIS DEPT USED BY [place] [id number] Allergies Active Allergy Reactions Criticality Noted Date Comments Abhinav Inhibitors Cough 12/25/2021 Aspirin 02/15/2021 "delgado" her stomach, had a GI bleed in the past Codeine 11/22/2020 Morphine 11/22/2020 Oxycodone 11/22/2020 Nausea, vomiting, chest pain Semaglutide(0.25 Or 0.5mg-Dos) Diarrhea 10/04/2022 Severe documented as of this encounter (statuses as of 03/02/2024) Medications Medication Sig Dispensed Refills Start Date End Date Status Ferrous Sulfate 325 (65 Fe) MG Oral Tablet (Feosol)Indications: anemia Take 1 Tablet by mouth daily with breakfast. 30 Tab 11/22/2020 Active Multivitamin Adult Oral TabletIndications:venegas pplementation Take by mouth 1 Tablet daily . 30 Tab 11/22/2020 Active Saline Nasal [place] 0.65 % Nasal SolutionIndications: for nasal dryness or congestion Administer 2 Sprays into each nostril in the morning and 2 Sprays at noon and 2 Sprays in the evening and 2 Sprays before bedtime. for nasal dryness or congestion. 60 mL 11/22/2020 Active [place] 3 1200 MG Oral CapsuleIndications:[facility] eart health [...] MOUTH EVERY DAY 90 Tablet 1 09/23/2023 Active Warfarin Sodium 2.5 MG Oral Tablet [...] goal of less than 8.0% ([facility]) inject under the skin 42 units before bedtime 45 mL 1 11/26/2023 Active Atorvastatin Calcium 40 MG Oral Tablet (Lipitor) Take 1 Tablet by mouth in the morning. 90 Tablet 1 12/11/2023 Active Spironolactone 25 MG Oral Tablet (Aldactone)Indicatio ns:Chronic diastolic CHF (congestive heart failure) ([facility]) TAKE ONE TABLET BY MOUTH [...] B, by GOLD 2017 classification ([facility]) INHALE ONE PUFF BY MOUTH EVERY MORNING 180 Each 2 01/16/2024 Active Furosemide 40 MG Oral Tablet (Lasix)Indications:C hronic diastolic CHF (congestive heart failure) ([facility]) TAKE TWO TABLETS BY MOUTH [...] B, by GOLD 2017 classification ([facility]),Chronic respiratory failure with hypoxia, on home oxygen therapy ([facility]) 2.5 mg NEBULIZER PRN 11/26/2023 11/25/2024 Acti ve Albuterol Sulfate (Proventil) (2.5 MG/3ML) 0.083% inhalation solution 2.5 mgIndications:COPD, group B, by GOLD 2017 classification ([facility]),Chronic respiratory failure with hypoxia, on home oxygen therapy (HCC) 2.5 mg NEBULIZER PRN 11/26/2023 11/25/2024 Acti ve documented as of this encounter (statuses as of 03/02/2024) Active Problems Problem Noted Date Diagnosed Date COPD, group B, by GOLD 2017 classification 09/15 Overview: Per COPD GOLD Classification Age-related osteoporosis wit hout current pathological fracture 02/05/2023 Last Assessment & Plan: Currently on prolia injections Chronic respiratory failure with hypoxia, on home oxygen therapy 10/04/2022 Overview: Wearing 3L continuously Last Assessment & Plan: Wearing 3L continuously Subclinical hypothyroidism 10/04/2022 History of [place] (myocardial infarction) 05/31/2022 Type 2 diabetes mellitus [...] 68 11/22/2020 Coronary artery disease invo lving [place] coronary artery without angina pectoris 11/22/2020 Last [...] as of this encounter (statuses as of 03/02/2024) Resolved Problems Problem Noted Date Diagnosed Date Resolved Date COPD, severity to be determined 08/19/2022 09/18/2023 Overview: Per COPD GOLD Classification Last Assessment & Plan: "RED FLAG" COPD symptoms: Cough ("I get a different kind of cough than what I' have every day") Wheezing ("You can hear the whistling across the room") Medication Regimen All Classes - COLE Class D - Inhaled Ftmvfmbnuisnpz-QLQQ-MEGV Combination Inhaler ([facility]) Remote Patient Monitoring Vendor: No Connected RPM Device(s): No current devices Self-Management plan Other/Additional Comments: rescue inhaler, contact [facility] Exacerbation plan Chest Xray Additional Comments: [...] as of this encounter (statuses as of 03/02/2024) Immunizations Name Administration Dates Next Due COVID-19, [...] 08/19/2023 Does the household have a re lar source of income? (Household - for ages [...] Team (Late st Contact Info) Description 03/08/2024 6:30 AM EDT Anticoagulation [facility], Luna Sears [address] [place] [address] [place] [address] [place] [address] [address] [facility] [place] [address] 03/09/2024 6:10 PM EDT Pharmacy Pharmacy, [address] [place] [address] [place] [address] 03/18/2024 1:00 PM EDT PulmDiagnostic Pulmonary Function Lab, [facility] [address] [facility] [place] [address] [place], [address] [facility] [place] [address] 03/18/2024 3:00 PM EDT Office Visit Pulmonary Medicine, [facility] [address] [place] [address] Ariel Wing MD [address] [facility] [place] [address] 04/09/2024 2:30 PM EDT [facility] [address] [place] [address] Nette Dior, RN [address] [place] [address] 07/26/2024 3:00 PM EST Office Visit Nephrology [address] [place] [address] Sonia Logan MD [address] [facility] [address] 08/02/2024 2:30 PM EST Nurse Only Ancillary [address] [place] [address] [place], Nurse Annual [address] [place] [address] 08/18/2024 2:30 PM EST Cardiac Studies Cardiac Studies, [facility] [address] [place] [address] 08/27/2024 1:20 PM EST Office Visit Family Medicine [address] [phone] Marnie Reyes CRNP [address] [place] [address] [place] [address] 09/07/2024 3:00 PM EST Office Visit Cardiology [address] [place] [address] Ulices Phillips PA-C [address] [place] [address] 03/02/2025 2:20 PM EDT Office Visit Family [address] [place] [phone] Edith Osuna MD [address] [place] [address] [place] [address] Health Maintenance Due Date Last Done Comments Diabetic Foot Exam 05/31/2023 05/31/2022, 07/31/2021 CKD PHOS USE SMARTSET 74763 10/04/2023 10/04/2022, 1 09/30/2020 CKD HGB USE SMARTSET 45175 02/06/202402/05, 02/05/2023, 10/04/2022, Additional history exists *BISPHONATE OR OTHER ACCEPTABLE MEDICATION NEEDED FOR OSTEOPOROSIS (REFER TO SMARTSET #1146) 02/28/2024 GFR 06/30/2024 12/30/2023, 01/08, 10/04/2022, Additional history exists HbA1c 06/30/2024 12/30/2023, 05/3 09/2022, 05/31/2022, Additional history exists DXA Scan 07/03/2024 07/03/2022, 07/03/2022 Depression Monitoring 07/30/2024 07/30/2023 Albumin/Creatinine Ratio 08/29/202408/29/ 023, 05/31/2022, 08/28/2021, Additional history exists Diabetic Eye Exam 01/06/2025 01/07/2024, , 12/06/2022, Additional history exists O2 ASSESSMENT COMPLETED IN PAST YEAR FOR COPD 02/24/2025 02/25/2024 DTaP,Tdap,and Td Vaccines (2 - Td or Tdap) 11/24/2031 11/23/2021 (Not indicated) Zoster Vaccines Discontinued 03/20/2021 Pneumococcal Vaccine: 65+ Years Completed 07/31/2021, 02/15/2021 COVID-19 Vaccine Discontinued 08/14/2021, 01/20/2021 VITAMIN D LEVEL ONCE IN A LIFETIME-USE SMARTSET# [id number] Completed 02/05/2023 Influenza Vaccine (FLU shot) Completed 05/29/2023, 05/31/2022, 07/31/2021, Additional history exists Alpha-1 Antitrypsin Discontinued GARDASIL-HPV IMMUNIZATION SERIES Aged [...] filedocumented as of this encounter Care Teams Process Supervisor Relationship Specialty Start Date End Date Edith Osuna MD [address] [place] [address] [place] [phone] PCP - General Family Medicine 02/15/21 documented as of this encounter
--- OUTSIDE RECORDS SUMMARY | 2024-05-12 05:16 | External Medical Summary | Summary of Care ---
Author Name Unknown Organization [facility] Address [address] [place] [address] Phone [phone] Care Team Providers Care Special Deputy Sheriff Name Role Phone Edith Osuna MD Primary Care Prov ider Reason for Visit * Reason Onset Date Comments Medication Refill Status Check 03/16/2024 Encounter Details Date Type Department Care Team (Late st Contact Info) Description 03/16/2024 Refill Family Medicine [address] [phone] Edith Osuna MD [address] [place] [id number] Moderate episode of recurrent major depressive disorder (HCC) Allergies Active Allergy Reactions Criticality Noted Date Comments Abhinav Inhibitors Cough 12/25/2021 Aspirin 02/15/2021 "delgado" her stomach, had a GI bleed in the past Codeine 11/22/2020 Morphine 11/22/2020 Oxycodone 11/22/2020 Nausea, vomiting, chest pain Semaglutide(0.25 Or 0.5mg-Dos) Diarrhea 10/04/2022 Severe documented as of this encounter (statuses as of 03/17/2024) Medications Medication Sig Dispensed Refills Start Date End Date Status Ferrous Sulfate 325 (65 Fe) MG Oral Tablet (Feosol)Indications :anemia Take 1 Tablet by mouth daily with breakfast. 30 Tab 11/22/2020 Active Multivitamin Adult Oral TabletIndications:s upplementation Take by mouth 1 Tablet daily . 30 Tab 11/22/2020 Active Saline Nasal [place] 0.65 % Nasal SolutionIndications :for nasal dryness or congestion Administer 2 Sprays into each nostril in the morning and 2 Sprays at noon and 2 Sprays in the evening and 2 Sprays before bedtime. for nasal dryness or congestion. 60 mL 11/22/2020 Active [place] 3 1200 MG Oral CapsuleIndications: heart health [...] TabletIndications:C hronic diastolic CHF (congestive heart failure) ([facility]) Take 1 Tab by mouth daily. 28 [...] (Aldactone)Indicati ons:Chronic diastolic CHF (congestive heart failure) ([facility] [...] ndications:COPD, group B, by GOLD 2017 classification ([facility]) INHALE ONE PUFF BY MOUTH EVERY MORNING 180 Each 2 01/16/2024 01/16/20 25 Active Furosemide 40 MG Oral Tablet (Lasix)Indications: Chronic diastolic CHF (congestive heart failure) ([facility] [...] DAY 100 Tablet 03/16/2024 03/16/20 25 Active FLUoxetine HCl 20 MG Oral Capsule (PROzac)Indications :Moderate episode of recurrent major depressive disorder (HCC) TAKE ONE CAPSULE BY MOUTH EVERY DAY 90 Capsule 3 03/17/2024 03/17/20 25 Active FLUoxetine HCl 20 MG Oral Capsule (PROzac)Indications :Moderate episode of recurrent major depressive disorder (HCC) TAKE ONE CAPSULE BY MOUTH EVERY DAY 90 Capsule 1 09/25/2023 03/16/20 24 Discontinu ed(Refill) Hospital, Clinic, or Other [...] as of this encounter (statuses as of 03/17/2024) Active Problems Problem Noted Date Diagnosed Date [...] 68 11/22/2020 Coronary artery disease invo lving andreafski coronary artery without angina pectoris 11/22/2020 Last [...] as of this encounter (statuses as of 03/17/2024) Resolved Problems Problem Noted Date Diagnosed Date Resolved Date COPD, severity to be determined 08/19/2022 09/18/2023 Overview: Per COPD GOLD Classification Last Assessment & Plan: "RED FLAG" COPD symptoms: Cough ("I get a different kind of cough than what I' have every day") Wheezing ("You can hear the whistling across the room") Medication Regimen All Classes - COLE Class D - Inhaled Rtreeqnxlxytkx-KRPO-PWUF Combination Inhaler (Trellegy) Remote Patient Monitoring Vendor: No Connected RPM Device(s): No current devices Self-Management plan Other/Additional Comments: rescue inhaler, contact [facility] Exacerbation plan Chest Xray Additional Comments: [...] as of this encounter (statuses as of 03/17/2024) Immunizations Name Administration Dates Next Due COVID-19, [...] encounter Miscellaneous Notes * Telephone Encounter - Noreen Amado [facility] - 03/17/2024 10:51 AM EDTSigned Prescriptions: Disp Refills FLUoxetine HCl 20 MG Oral Capsule (PROzac) 90 Cap*3 Sig: TAKE ONE CAPSULE BY MOUTH EVERY DAY Authorizing Provider: EDITH OSUNA User: NOREEN AMADO * Telephone Encounter - Noreen Amado [facility] - 03/17/2024 10:51 AM EDTSigned Prescriptions: Disp Refills FLUoxetine HCl 20 MG Oral Capsule (PROzac) 90 Cap*3 Sig: TAKE ONE CAPSULE BY MOUTH EVERY DAY Authorizing Provider: EDITH OSUNA Ordering User: NOREEN AMADO * Telephone Encounter - Rajni Ramos [facility] - 03/17/2024 10:46 AM EDT Did you pend patient's preferred pharmacy and medication before forwarding?yes Pharmacy: [facility] Pending Prescriptions: Disp Refills FLUoxetine HCl 20 MG Oral Capsule (PROzac)90 Cap*1 Sig: TAKE ONE CAPSULE BY MOUTH EVERY DAY Last Visit: 02/25/2024 (in office), 08/12/2023 (telemedicine) Next Visit: 08/27/2024 If no future appointments scheduled, and last appointment is greater than a year ago, please schedule patient for a follow-up appointment Last date the medication was ordered: 09/25/23 Is this request for a controlled substance?No Urine Drug Screen:No results found for this or any previous visit. Patient Phone Numbers Labs: Lab Results Component Value Date/Time CREAT 1.6 (H) 12/30/2023 02:52 PM POTASSIUM 5.1 12/30/2023 02:52 PM TSH 4.93 (H) 12/30/2023 02:52 PM LDLCALC 101 12/30/2023 02:52 PM LDLCALC 97 11/14/2020 04:32 AM LDLDIRECT 86 10/04/2022 03:05 PM ALT 15 12/30/2023 02:52 PM HGBA1C 7.8 (H) 12/30/2023 02:52 PM HGBA1C 8.4 (H) 11/14/2020 04:32 AM documented in this encounter Plan of Treatment Upcoming Encounters Date Type Department Care Team (Late st Contact Info) Description 03/18/2024 1:00 PM EDT PulmDiagnostic Pulmonary Function Lab, [facility] [address] [address] [address], [address] [address] 03/18/2024 3:00 PM EDT Office Visit Pulmonary Medicine, [facility] [address] [address] Ariel Wing MD [address] [place] [address] 03/22/2024 6:30 AM EDT Anticoagulation [facility], Luna Sears [address] [place] [address] [place] [address] [place] [address] 04/06/2024 6:10 PM EDT Pharmacy Pharmacy, [address] [place] [address] [place] [address] 04/09/2024 2:30 PM EDT [facility] [address] Nette Dior RN [facility] [address] 07/26/2024 3:00 PM EST Office Visit Nephrology [address] [place] [address] Sonia Logan MD [address] [place] [address] 08/02/2024 2:30 PM EST Nurse Only Ancillary [address] [place] [address] [place], Nurse [address] [place] [address] 08/18/2024 2:30 PM EST Cardiac Studies [facility], [facility] [place] [address] 08/27/2024 1:20 PM EST Office Visit Family Medicine [address] [place] [phone] Marnie Reyes CRNP [address] [place] [address] [place] [address] 09/07/2024 3:00 PM EST Office Visit Cardiology [address] [place] [address] Ulices Phillips PA-C [address] [place] [address] 09/15/2024 1:00 PM EST Imaging Radiology, [address] [place] [address] 03/02/2025 2:20 PM EDT Office Visit Family Medicine [address] [place] [phone] Edith Osuna MD [address] [place] [address] [place] [address] Health Maintenance Due Date Last Done Comments Diabetic Foot Exam 05/31/2023 05/31/2022, 07/31/2021 CKD PHOS USE SMARTSET 14688 10/04/2023 10/04/2022, 1 09/30/2020 CKD HGB USE SMARTSET 57708 02/06/202402/05, 02/05/2023, 10/04/2022, Additional history exists *BISPHONATE [...] D LEVEL ONCE IN A LIFETIME-USE SMARTSET# 38080 Completed 02/05/2023 Alpha-1 Antitrypsin Discontinued HPV (Gardasil) [...] as of this encounter Visit Diagnoses Diagnosis Moderate episode of recurrent major depressive disorder (HCC) documented in this encounter Care Teams Special Deputy Sheriff Relationship Specialty Start Date End Date Edith Osuna MD [address] [place] [address] [place] [address] PCP - General Family Medicine 02/15/21 documented as of this encounter
--- OUTSIDE RECORDS SUMMARY | 2024-05-12 05:16 | External Medical Summary | Summary of Care ---
Author Name Unknown Organization [facility] Address [address] [place] [address] Phone [phone] Care Team Providers Care Supreme Court Judge Name Role Phone Edith Osuna MD Primary Care Prov ider Reason for Visit * Reason Comments Appointment Encounter Details Date Type Department Care Team (Late st Contact Info) Description 03/09/2024 6:10 PM EDT Pharmacy Pharmacy, [address] [place] [address] [place] [address] Type 2 diabetes mellitus with hemoglobin A1c goal of less than 8.0% ([facility])* Allergies Active Allergy Reactions Criticality Noted Date Comments Abhinav Inhibitors Cough 12/25/2021 Aspirin 02/15/2021 "delgado" her stomach, had a GI bleed in the past Codeine 11/22/2020 Morphine 11/22/2020 Oxycodone 11/22/2020 Nausea, vomiting, chest pain Semaglutide(0.25 Or 0.5mg-Dos) Diarrhea 10/04/2022 Severe documented as of this encounter (statuses as of 03/09/2024) Medications Medication Sig Dispensed Refills Start Date End Date Status Ferrous Sulfate 325 (65 Fe) MG Oral Tablet (Feosol)Indications: anemia Take 1 Tablet by mouth daily with breakfast. 30 Tab 11/22/2020 Active Multivitamin Adult Oral TabletIndications:venegas pplementation Take by mouth 1 Tablet daily . 30 Tab 11/22/2020 Active Saline Nasal [place] 0.65 % Nasal SolutionIndications: for nasal dryness or congestion Administer 2 Sprays into each nostril in the morning and 2 Sprays at noon and 2 Sprays in the evening and 2 Sprays before bedtime. for nasal dryness or congestion. 60 mL 11/22/2020 Active [place] 3 1200 MG Oral CapsuleIndications:[facility] [...] A1c goal of less than 8.0% ([facility]) inject under the skin 42 units before bedtime 45 mL 1 11/26/2023 Active Atorvastatin Calcium 40 MG Oral Tablet (Lipitor) Take 1 Tablet by mouth in the morning. 90 Tablet 1 12/11/2023 Active Spironolactone 25 MG Oral Tablet (Aldactone)Indicatio ns:Chronic diastolic CHF (congestive heart failure) ([facility]) TAKE ONE TABLET BY MOUTH EVERY MORNING, AND ONE TABLET BEFORE BEDTIME 180 Tablet 1 12/25/2023 Active Metoprolol Succinate ER 50 MG Oral Tablet Extended Release 24 Hour (toPROL XL) TAKE ONE TABLET BY MOUTH EVERY DAY 90 Tablet 3 01/08/2024 Active Trelegy Ellipta 100-62.5-25 MCG/ACT Aerosol Powder Breath Activated (Fluticasone-Umeclid inium-Vilanterol)Ind ications:COPD, group B, by GOLD 2017 classification ([facility]) INHALE ONE PUFF BY MOUTH EVERY MORNING 180 Each 2 01/16/2024 Active Furosemide 40 MG Oral Tablet (Lasix)Indications:C hronic diastolic CHF (congestive heart failure) ([facility]) TAKE TWO TABLETS BY [...] group B, by GOLD 2017 classification ([facility]),Chronic respiratory failure with hypoxia, on home oxygen therapy ([facility]) 2.5 mg NEBULIZER PRN 11/26/2023 11/25/2024 Acti ve Albuterol Sulfate (Proventil) (2.5 MG/3ML) 0.083% inhalation solution 2.5 mgIndications:COPD, group B, by GOLD 2017 classification ([facility]),Chronic respiratory failure with hypoxia, on home oxygen therapy (HCC) 2.5 mg NEBULIZER PRN 11/26/2023 11/25/[address] documented as of this encounter (statuses as of 03/09/2024) Active Problems Problem Noted Date Diagnosed Date COPD, group B, by GOLD 2017 classification 09/15 Overview: Per COPD GOLD Classification Age-related osteoporosis wit hout current pathological fracture 02/05/2023 Last Assessment & Plan: Currently on prolia injections Chronic respiratory failure with hypoxia, on home oxygen therapy 10/04/2022 Overview: Wearing 3L continuously Last Assessment & Plan: Wearing 3L continuously Subclinical hypothyroidism 10/04/2022 History of NH (myocardial infarction) 05/31/2022 Type 2 diabetes mellitus [...] 68 11/22/2020 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 11/22/2020 Last [...] as of this encounter (statuses as of 03/09/2024) Resolved Problems Problem Noted Date Diagnosed Date Resolved Date COPD, severity to be determined 08/19/2022 09/18/2023 Overview: Per COPD GOLD Classification Last Assessment & Plan: "RED FLAG" COPD symptoms: Cough ("I get a different kind of cough than what I' have every day") Wheezing ("You can hear the whistling across the room") Medication Regimen All Classes - COLE Class D - Inhaled Ihndrfwxvskwfr-KWEN-DLVD Combination Inhaler (Trellegy) Remote Patient Monitoring Vendor: No Connected RPM Device(s): No current devices Self-Management plan Other/Additional Comments: rescue inhaler, contact [facility] Exacerbation plan Chest Xray Additional Comments: [...] as of this encounter (statuses as of 03/09/2024) Immunizations Name Administration Dates Next Due COVID-19, [...] Notes * Mary Jewell PHARM Tech - 03/09/2024 8:46 AM EDT Patient Phone Numbers Left message on patients answering machine to schedule [facility] appointment for diabetes management. [facility] message sent --no Clinic will follow up again in 4 week(s). [Attempt # 3] Thank you, Mary Jewell Freezer Machine Operator [facility] ([facility]) [phone] 03/09/2024,8:46 AM documented in this encounter Plan of Treatment Upcoming Encounters Date Type Department Care Team (Late st Contact Info) Description 03/15/2024 6:30 AM EDT Anticoagulation [facility], Luna Sears [address] [place] [address] [place] [address] [facility], [address] [place] [address] 03/18/2024 1:00 PM EDT PulmDiagnostic Pulmonary Function Lab, [facility] [address] [address] [place], [address] [place] [address] [address] 03/18/2024 3:00 PM EDT Office Visit Pulmonary Medicine, [facility] [address] [address] Ariel Wing MD [address] [place] [address] 04/06/2024 6:10 PM EDT Pharmacy Pharmacy, [address] [place] [address] [place] [address] 04/09/2024 2:30 PM EDT [facility], [facility] [address] [place] [address] Nette Dior, OCTAVIO [address] [place] [address] 07/26/2024 3:00 PM EST Office Visit Nephrology [address] [place] [address] Sonia Logan MD [address] [facility] [address] 08/02/2024 2:30 PM EST Nurse Only Ancillary [address] [place] [address] [place], Nurse Annual [address] [place] [address] 08/18/2024 2:30 PM EST Cardiac Studies Cardiac Studies, [facility] [address] [facility] [place] [address] 08/27/2024 1:20 PM EST Office Visit Family Medicine [address] [place] [phone] Marnie Reyes [address] [place] [address] 09/07/2024 3:00 PM EST Office Visit Cardiology [address] [place] [address] Ulices Phillips PAHusseinC [address] [place] [address] 09/15/2024 1:00 PM EST Imaging Radiology, [address] [place] [address] 03/02/2025 2:20 PM EDT Office Visit [address] [place] [phone] Edith Osuna MD [address] [place] [address] [place] [address] Health Maintenance Due Date Last Done Comments Diabetic Foot Exam 05/31/2023 05/31/2022, 07/31/2021 CKD PHOS USE SMARTSET 42249 10/04/2023 10/04/2022, 1 09/30/2020 CKD HGB USE SMARTSET 31435 02/06/202402/05, 02/05/2023, 10/04/2022, Additional history exists *BISPHONATE [...] SMARTSET# [id number] Completed 02/05/2023 Alpha-1 Antitrypsin Discontinued GARDASIL-HPV IMMUNIZATION [...] Primary documented in this encounter Care Teams Supreme Court Judge Relationship Specialty Start Date End Date Edith Osuna MD [address] [place] [address] [place] [phone] PCP - General Family Medicine 02/15/21 documented as of this encounter
--- OUTSIDE RECORDS SUMMARY | 2024-05-12 05:16 | External Medical Summary | Summary of Care ---
Author Name Unknown Organization [facility] Address [address] [place] [address] Phone [phone] Care Team Providers Care Web Content Director Name Role Phone Edith Osuna MD Primary Care Prov ider Encounter Details Date Type Department Care Team (Late st Contact Info) Description 03/30/2024 Population Health External Data Unspecified Department Allergies Active Allergy Reactions Criticality Noted Date Comments Abhinav Inhibitors Cough 12/25/2021 Aspirin 02/15/2021 "delgado" her stomach, had a GI bleed in the past Codeine 11/22/2020 Morphine 11/22/2020 Oxycodone 11/22/2020 Nausea, vomiting, chest pain Semaglutide(0.25 Or 0.5mg-Dos) Diarrhea 10/04/2022 Severe documented as of this encounter (statuses as of 04/02/2024) Medications Medication Sig Dispensed Refills Start Date End Date Status Ferrous Sulfate 325 (65 Fe) MG Oral Tablet (Feosol)Indications: anemia Take 1 Tablet by mouth daily with breakfast. 30 Tab 11/22/2020 Active Multivitamin Adult Oral TabletIndications:venegas pplementation Take by mouth 1 Tablet daily . 30 Tab 11/22/2020 Active Saline Nasal Maplewood 0.65 % Nasal SolutionIndications: for nasal dryness or congestion Administer 2 Sprays into each nostril in the morning and 2 Sprays at noon and 2 Sprays in the evening and 2 Sprays before bedtime. for nasal dryness or congestion. 60 mL 11/22/2020 Active Washburn 3 1200 MG Oral CapsuleIndications:[facility] [...] of less than 8.0% ([facility]) Use to test blood sugar 3-4 times a day dx E11.9 400 Each 3 03/13/2021 Active OneTouch Verio In Vitro Strip (Glucose Blood)Indications:Ty pe 2 diabetes mellitus with hemoglobin A1c goal of less than 8.0% ([facility]) Use to test blood sugar 3-4 times a day dx e11.9 400 Strip 3 03/13/2021 Active FreeStyle Robbin 2 Sensor Use as directed. Active Magnesium Oxide 400 (240 Mg) MG Oral TabletIndications:Ch ronic diastolic CHF (congestive heart failure) ([facility]) Take 1 Tab by mouth daily. 28 Tab 5 04/19/2021 Active oxygen IN GAS Use 2 L/min(Oxygen) as directed continuous. Active Insulin Syringes (Disposable) U-100 1 MLIndications:Type 2 diabetes mellitus with hemoglobin A1c goal of less than 8.0% ([facility]) Twice a day 200 Each 1 [...] all other days or as directed by [facility] 135 Tablet 3 09/24/2023 Active BD Pen [...] MOUTH EVERY DAY AT BEDTIME 90 Tablet 11/18/2023 Active Tresiba FlexTouch 100 UNIT/ML Subcutaneous Solution Pen-injector (Insulin Degludec)Indications :Type 2 diabetes mellitus with hemoglobin A1c goal of less than 8.0% ([facility]) inject under the skin 42 units before bedtime 45 mL 11/26/2023 Active Atorvastatin Calcium 40 MG Oral Tablet (Lipitor) Take 1 Tablet by mouth in the morning. 90 Tablet 1 12/11/2023 Active Spironolactone 25 MG Oral Tablet (Aldactone)Indicatio ns:Chronic diastolic CHF (congestive heart failure) ([facility]) TAKE ONE TABLET BY MOUTH EVERY MORNING, AND ONE TABLET BEFORE BEDTIME 180 Tablet 12/25/2023 5 Active Metoprolol Succinate ER 50 MG Oral Tablet Extended Release 24 Hour (toPROL XL) TAKE ONE TABLET BY MOUTH EVERY DAY 90 Tablet 3 01/08/2024 5 Active Trelegy Ellipta 100-62.5-25 MCG/ACT Aerosol Powder Breath Activated (Fluticasone-Umeclid inium-Vilanterol)Ind ications:COPD, group B, by GOLD 2017 classification ([facility]) INHALE ONE PUFF BY MOUTH EVERY MORNING 180 Each 2 01/16/2024 Active Furosemide 40 MG Oral Tablet (Lasix)Indications:C hronic diastolic CHF (congestive heart failure) ([facility]) TAKE TWO TABLETS BY MOUTH EVERY [...] Moderate episode of recurrent major depressive disorder ([facility]) TAKE ONE CAPSULE BY MOUTH EVERY DAY 90 Capsule 3 03/17/2024 5 Active Hospital, Clinic, or Other Facility Administered Medication Ordered Dose Route Frequency Start Date End Date Status Albuterol Sulfate (Proventil) (5 MG/ML) 0.5% *conc* inhalation solution 2.5 mgIndications:COPD, group B, by GOLD 2017 classification ([facility]),Chronic respiratory failure with hypoxia, on home oxygen therapy ([facility]) 2.5 mg NEBULIZER PRN 11/26/2023 11/25/2024 Acti ve Albuterol Sulfate (Proventil) (2.5 MG/3ML) 0.083% inhalation solution 2.5 mgIndications:COPD, group B, by GOLD 2017 classification ([facility]),Chronic respiratory failure with hypoxia, on home oxygen therapy ([facility]) 2.5 mg NEBULIZER PRN 11/26/2023 11/25/2024 Acti ve documented as of this encounter (statuses as of 04/02/2024) Active Problems Problem Noted Date Diagnosed Date COPD, group B, by GOLD 2017 classification 09/15 Overview: Per COPD GOLD Classification Age-related osteoporosis wit hout current pathological fracture 02/05/2023 Last Assessment & Plan: Currently on prolia injections Chronic respiratory failure with hypoxia, on home oxygen therapy 10/04/2022 Overview: Wearing 3L continuously Last Assessment & Plan: Wearing 3L continuously Subclinical hypothyroidism 10/04/2022 History of NV (myocardial infarction) 05/31/2022 Type 2 diabetes mellitus [...] 68 11/22/2020 Coronary artery disease invo lving torres martinez coronary artery without angina pectoris 11/22/2020 Last [...] as of this encounter (statuses as of 04/02/2024) Resolved Problems Problem Noted Date Diagnosed Date Resolved Date COPD, severity to be determined 08/19/2022 09/18/2023 Overview: Per COPD GOLD Classification Last Assessment & Plan: "RED FLAG" COPD symptoms: Cough ("I get a different kind of cough than what I' have every day") Wheezing ("You can hear the whistling across the room") Medication Regimen All Classes - COLE Class D - Inhaled Jkpctydciltjza-PVTU-KFJP Combination Inhaler (Trellegy) Remote Patient Monitoring Vendor: No Connected RPM Device(s): No current devices Self-Management plan Other/Additional Comments: rescue inhaler, contact [facility] Exacerbation plan Chest Xray Additional [...] as of this encounter (statuses as of 04/02/2024) Immunizations Name Administration Dates Next Due COVID-19, [...] No 08/19/2023 Does the household have a [facility] source of income? (Household - for ages [...] Description 04/06/2024 6:10 PM EDT Pharmacy Pharmacy, [address] [place] [address] [place] [address] 04/09/2024 2:30 PM EDT Home Visit [facility], [facility] [address] [facility] [place] [address] Nette Dior, OCTAVIO [address] [facility] [place] [address] 04/27/2024 6:30 AM EDT Anticoagulation Centralized Clinical Pharmacy Services, Lunaosiris Sears [address] [place] [address] [place] [address] [facility], [address] [place] [address] 04/29/2024 11:00 AM EDT PulmDiagnostic Pulmonary Function Lab, [facility] [address] [facility] [place] [address] [facility] [address] [facility] [place] [address] 05/03/2024 2:00 PM EDT Office Visit Pulmonary Medicine, [facility] [address] [facility] [place] [address] Ariel Wing MD [address] [facility] [place] [address] 07/26/2024 3:00 PM EST Office Visit Nephrology [address] [place] [address] Sonia Logan MD [address] [place] [address] 08/02/2024 2:30 PM EST Nurse Only Ancillary [address] [place] [address] Vinicio, Nurse [facility] [address] [place] [address] [place] [address] 08/18/2024 2:30 PM EST Cardiac Studies Cardiac Studies, [facility] [address] [place] [address] 08/27/2024 1:20 PM EST Office Visit Family Medicine [address] [place] [phone] Marnie Reyes CRNP [address] [place] [address] [place] [address] 09/07/2024 3:00 PM EST Office Visit Cardiology [address] [place] [address] Ulices Phillips PA-C [address] [place] [address] 09/15/2024 1:00 PM EST Imaging Radiology, [address] [place] [address] 03/02/2025 2:20 PM EDT Office Visit [address] [place] [phone] Edith Osuna MD [address] [place] [address] [place] [address] Health Maintenance Due Date Last Done Comments Diabetic Foot Exam 05/31/2023 05/31/2022, 07/31/2021 CKD PHOS USE SMARTSET 05705 10/04/2023 10/04/2022, 1 09/30/2020 CKD HGB USE SMARTSET 31151 02/06/202402/05, 02/05/2023, 10/04/2022, Additional history exists *BISPHONATE [...] D LEVEL ONCE IN A LIFETIME-USE SMARTSET# [id number] Completed 02/05/2023 Alpha-1 Antitrypsin Discontinued HPV (Gardasil) [...] filedocumented as of this encounter Care Teams Web Content Director Relationship Specialty Start Date End Date Edith Osuna MD [address] [place] [address] [place] [address] PCP - General Family Medicine 02/15/21 documented as of this encounter
--- OUTSIDE RECORDS SUMMARY | 2024-05-12 05:16 | External Medical Summary | Summary of Care ---
Author Name Unknown Organization [facility] Address [address] [facility] [place] [address] Phone [phone] Care Team Providers Care Cell Inspector Name Role Phone Edith Osuna MD Primary Care Prov ider Reason for Visit * Reason Comments Dosage Adjustment Via Phone (anticoag Cl inic) Encounter Details Date Type Department Care Team (Late st Contact Info) Description 03/29/2024 6:15 PM EDT Anticoagulation Centralized Clinical Pharmacy Services, Luna Sears [address] [place] [address] [place] [address] [place] [address] H/O mitral valve replacement with mechanical valve*; Paroxysmal atrial fibrillation (HCC) Allergies Active Allergy Reactions Criticality Noted [...] . 30 Tab 11/22/2020 Active Saline Nasal Roberts 0.65 % Nasal SolutionIndications: for nasal dryness or congestion Administer 2 Sprays into each nostril in the morning and 2 Sprays at noon and 2 Sprays in the evening and 2 Sprays before bedtime. for nasal dryness or congestion. 60 mL 11/22/2020 Active Bartlett 3 1200 MG Oral CapsuleIndications: [facility] [...] TabletIndications:Ch ronic diastolic CHF (congestive heart failure) ([facility] [...] 3L continuously Subclinical hypothyroidism 10/04/2022 History of VT (myocardial infarction) 05/31/2022 Type 2 diabetes mellitus [...] 68 11/22/2020 Coronary artery disease invo lving otoe-missouria coronary artery without angina pectoris 11/22/2020 Last [...] Classes - COLE Class D - Inhaled Gksltaozpfjeqk-NHXB-GOKW Combination Inhaler (Trellegy) Remote Patient Monitoring Vendor: No Connected RPM Device(s): No current devices Self-Management plan Other/Additional Comments: rescue inhaler, contact [facility] Exacerbation plan Chest Xray Additional Comments: [...] as of this encounter Progress Notes * Tana Lobo PHARM Tech - 03/29/2024 3:08 PM EDT Contacts Type Contact Phone/Fax 03/29/2024 03:04 PM EDT Phone (Outgoing) Kishan merritt (Emergency Contact) [phone] (M) Spoke with Kishan. Subjective Patient Findings Negatives: Signs/symptoms of bleeding, Change in health, Change in activity, Upcoming invasive procedure, Missed doses, Extra doses, Change in medications, Change in diet/appetite, Bruising Advised patient to contact Anticoagulation Clinic if any unusual bruising or bleeding, recent illness, changes in medication, or questions/concerns. PT/INR results, Coumadin dose instructions, and next PT/INR date communicated as noted by Pharmacist: MAGGIE Curiel 03/29/2024, 3:08 PM * Jes Higgins RPh - 03/29/2024 3:03 PM EDT Coumadin Clinic (region specific) Objective Current Warfarin Dose As of 03/29/2024 Warfarin maintenance plan: 2.5 mg (2.5 mg x 1) every Mon, Wed, Fri; 5 mg (2.5 mg x 2) all other days INR Result As of 03/29/2024 INR goal: 2.5-3.5 INR used for dosin.9 (03/29/2024) Assessment & Plan Warfarin Plan As of 03/29/2024 Full warfarin instructions: 2.5 mg every Mon, Wed, Fri; 5 mg all other days No change documented: Jes Higgins RPh Next INR check: 04/26/2024 Repeat PT/INR in 4 week(s) Weekly dose: not changed Additional Dosing Information: Description Home Direct Support Professional Caregiver to contact patient with dose instructions as noted. Jes Higgins RPh 03/29/2024, 3:03 PM documented in this encounter Plan of Treatment Upcoming Encounters Date Type Department Care Team (Late st Contact Info) Description 04/06/2024 6:10 PM EDT Pharmacy Pharmacy, [address] [place] [address] [place] [address] 04/09/2024 2:30 PM EDT Home Visit [facility], [facility] [address] [facility] [place] [address] Nette Dior, RN [address] [facility] [place] [address] 04/29/2024 11:00 AM EDT PulmDiagnostic Pulmonary Function Lab, [facility] [address] [facility] [place] [address] [place], [address] [facility] [place] [address] 05/03/2024 2:00 PM EDT Office Visit Pulmonary Medicine, [facility] [address] [facility] [place] [address] Ariel Wing MD [address] [place] [address] 07/26/2024 3:00 PM EST Office Visit Nephrology [address] [place] [address] Sonia Logan MD [address] [place] [address] 08/02/2024 2:30 PM EST Nurse Only Ancillary [address] [place] [address] [place], Nurse Annual Wellness [address] [place] [address] [place] [address] 08/18/2024 2:30 PM EST Cardiac Studies Cardiac Studies, [facility] [address] [place] [address] 08/27/2024 1:20 PM EST Office Visit Family Medicine [address] [place] [phone] Marnie Reyes CRNP [address] [place] [address] [place] [address] 09/07/2024 3:00 PM EST Office Visit Cardiology [address] [place] [address] Ulices Phillips PAHusseinC [address] [place] [address] 09/15/2024 1:00 PM EST Imaging Radiology, [address] [place] [address] 03/02/2025 2:20 PM EDT Office Visit Family [address] [place] [phone] Edith Osuna MD [address] [place] [address] [place] [address] Health Maintenance Due Date Last Done Comments Diabetic Foot Exam 05/31/2023 05/31/2022, 07/31/2021 CKD PHOS USE SMARTSET 71309 10/04/2023 10/04/2022, 1 09/30/2020 CKD HGB USE SMARTSET 81982 02/06/202402/05, 02/05/2023, 10/04/2022, Additional history exists *BISPHONATE [...] D LEVEL ONCE IN A LIFETIME-USE SMARTSET# [id number] Completed 02/05/2023 Alpha-1 Antitrypsin Discontinued HPV (Gardasil) [...] Name Priority Date/Time Associated Diagnosis Comments OUTSIDE LAB-PT/INR Routine 03/29/2024 documented in this encounter Results * OUTSIDE LAB-PT/INR (03/29/2024) INR-OUTSIDE LAB 2.9 03/29/2024 History Per Patient LABORATORY documented in this encounter Visit Diagnoses Diagnosis H/O mitral valve replacement with mechanical valve- Primary Heart valve replaced by other means Paroxysmal atrial fibrillation (HCC) Atrial fibrillation documented in this encounter Care Teams Cell Inspector Relationship Specialty Start Date End Date Edith Osuna MD [address] [place] [address] [place] [phone] PCP - General Family Medicine 02/15/21 documented as of this encounter
--- OUTSIDE RECORDS SUMMARY | 2024-05-12 05:17 | External Medical Summary | Summary of Care ---
Author Name Unknown Organization [facility] Address [address] [place] [address] Phone [phone] Care Team Providers Care Lending Manager Name Role Phone Edith Osuna MD Primary Care Prov ider Reason for Visit * Reason Comments Medication Refill Encounter Details Date Type Department Care Team (Late st Contact Info) Description 02/13/2024 Refill Family Medicine [address] [phone] Edith Osuna MD [address] [place], [place] [address] [address] Chronic diastolic CHF (congestive heart failure) (HCC) Allergies Active Allergy Reactions Criticality Noted Date Comments Abhinav Inhibitors Cough 12/25/2021 Aspirin 02/15/2021 "delgado" her stomach, had a GI bleed in the past Codeine 11/22/2020 Morphine 11/22/2020 Oxycodone 11/22/2020 Nausea, vomiting, chest pain Semaglutide(0.25 Or 0.5mg-Dos) Diarrhea 10/04/2022 Severe documented as of this encounter (statuses as of 02/13/2024) Medications Medication Sig Dispensed Refills Start Date End Date Status Ferrous Sulfate 325 (65 Fe) MG Oral Tablet (Feosol)Indications :anemia Take 1 Tablet by mouth daily with breakfast. 30 Tab 11/22/2020 Active Multivitamin Adult Oral TabletIndications:s upplementation Take by mouth 1 Tablet daily . 30 Tab 11/22/2020 Active Saline Nasal [place] 0.65 % Nasal SolutionIndications :for nasal dryness or congestion Administer 2 Sprays into each nostril in the morning and 2 Sprays at noon and 2 Sprays in the evening and 2 Sprays before bedtime. for nasal dryness or congestion. 60 mL 11/22/2020 Active [place] 3 1200 MG Oral CapsuleIndications: heart health [...] hemoglobin A1c goal of less than 8.0% ([facility]) Use to test blood sugar 3-4 times a day dx E11.9 400 Each 3 03/13/2021 Active OneTouch Verio In Vitro Strip (Glucose Blood)Indications:T ype 2 diabetes mellitus with hemoglobin A1c goal of less than 8.0% ([facility]) Use to test blood sugar 3-4 times a day dx e11.9 400 Strip 3 03/13/2021 Active FreeStyle [place] 2 Sensor Use as directed. Active Magnesium Oxide 400 (240 Mg) MG Oral TabletIndications:C hronic diastolic CHF (congestive heart failure) (HCC) Take 1 Tab by mouth daily. 28 Tab 5 04/19/2021 Active oxygen IN GAS Use 2 L/min(Oxygen) as directed continuous. Active Insulin Syringes (Disposable) U-100 1 MLIndications:Type 2 diabetes mellitus with hemoglobin A1c goal of less than 8.0% ([facility]) Twice a day 200 Each [...] For wheezing 3 Each 3 05/31/2022 Active Additional Information Patient not taking.Reported on 11/20/2023 Senna 8.6 MG Oral Capsule Take 1 Tablet by mouth in the morning. As needed constipation . Active HYDROcodone-Acetami nophen 5-325 MG Oral TabletIndications:D DD (degenerative disc disease), lumbar Take 1 Tablet by mouth every 8 hours as needed (back). 30 Tablet 08/13/2023 Active DIURETIC TITRATION PLAN If no improvement on day 3, contact heart failure managing provider. 1 Each 08/21/2023 Active Omeprazole 20 MG Oral Capsule Delayed Release (PriLOSEC)Indicatio ns:Gastro-esophagea l reflux disease without esophagitis TAKE ONE CAPSULE BY MOUTH EVERY DAY 1 HOUR BEFORE THE FIRST MEAL OF THE DAY 90 Capsule 1 08/25/2023 08/24/20 24 Active dilTIAZem HCl ER Coated Beads 120 MG Oral Capsule Extended Release 24 Hour (Cardizem CD) TAKE ONE CAPSULE BY MOUTH EVERY DAY 90 Capsule 1 08/25/2023 08/24/20 24 Active Ketoconazole 2 % External CreamIndications:ra sh Apply to rash twice a day until clear 60 g 3 09/19/2023 Active BD Insulin Syringe U/F 31G X 5/16" 0.5 ML (Insulin Syringe-Needle U-100) use twice daily 200 Each 1 09/22/2023 Active Clopidogrel Bisulfate 75 MG Oral Tablet (pLAVix) TAKE ONE TABLET BY MOUTH EVERY DAY 90 Tablet 1 09/23/2023 09/22/19 25 Active Warfarin Sodium 2.5 MG Oral Tablet [...] hemoglobin A1c goal of less than 8.0% ([facility]) inject under the skin 42 units before bedtime 45 mL 1 11/26/2023 Active Doxycycline Hyclate 100 MG Oral Capsule Take 1 Capsule by mouth in the morning and 1 Capsule before bedtime. until gone.. 20 Capsule 11/26/2023 Active Atorvastatin Calcium 40 MG Oral Tablet (Lipitor) Take 1 Tablet by mouth in the morning. 90 Tablet 1 12/11/2023 Active Spironolactone 25 MG Oral Tablet (Aldactone)Indicati ons:Chronic diastolic CHF (congestive heart failure) ([facility]) TAKE ONE TABLET BY MOUTH [...] ndications:COPD, group B, by GOLD 2017 classification ([facility]) INHALE ONE PUFF BY MOUTH EVERY MORNING 180 Each 2 01/16/2024 01/16/20 25 Active Furosemide 40 MG Oral Tablet (Lasix)Indications: Chronic diastolic CHF (congestive heart failure) ([facility]) TAKE TWO TABLETS BY MOUTH EVERY MORNING 180 Tablet 1 02/13/2024 Active Furosemide 40 MG Oral Tablet (Lasix)Indications: Chronic diastolic CHF (congestive heart failure) ([facility]) TAKE TWO TABLETS BY MOUTH EVERY MORNING 180 Tablet 1 08/18/2023 02/13/20 24 Discontinu ed(Refill) Hospital, Clinic, or Other Facility Administered Medication Ordered Dose Route Frequency Start Date End Date Status Albuterol Sulfate (Proventil) (5 MG/ML) 0.5% *conc* inhalation solution 2.5 mgIndications:COPD, group B, by GOLD 2017 classification ([facility]),Chronic respiratory failure with hypoxia, on home oxygen therapy ([facility]) 2.5 mg NEBULIZER PRN 11/26/2023 11/25/2024 Acti ve Albuterol Sulfate (Proventil) (2.5 MG/3ML) 0.083% inhalation solution 2.5 mgIndications:COPD, group B, by GOLD 2017 classification ([facility]),Chronic respiratory failure with hypoxia, on home oxygen therapy ([facility]) 2.5 mg NEBULIZER PRN 11/26/2023 11/25/2024 Acti ve documented as of this encounter (statuses as of 02/13/2024) Active Problems Problem Noted Date Diagnosed Date COPD, group B, by GOLD 2017 classification 09/15 Overview: Per COPD GOLD Classification Age-related osteoporosis wit hout current pathological fracture 02/05/2023 Last Assessment & Plan: Currently on prolia injections Chronic respiratory failure with hypoxia, on home oxygen therapy 10/04/2022 Overview: Wearing 3L continuously Last Assessment & Plan: Wearing 3L continuously Subclinical hypothyroidism 10/04/2022 History of [place] (myocardial infarction) 05/31/2022 Type 2 diabetes mellitus [...] 68 11/22/2020 Coronary artery disease invo lving [place] coronary artery without angina pectoris 11/22/2020 Last [...] as of this encounter (statuses as of 02/13/2024) Resolved Problems Problem Noted Date Diagnosed Date Resolved Date COPD, severity to be determined 08/19/2022 09/18/2023 Overview: Per COPD GOLD Classification Last Assessment & Plan: "RED FLAG" COPD symptoms: Cough ("I get a different kind of cough than what I' have every day") Wheezing ("You can hear the whistling across the room") Medication Regimen All Classes - COLE Class D - Inhaled [place]huaxdjum-[id number] Combination Inhaler (Trellegy) Remote Patient Monitoring Vendor: No Connected RPM Device(s): No current devices Self-Management plan Other/Additional Comments: rescue inhaler, contact [facility] Exacerbation plan Chest Xray Additional Comments: [...] as of this encounter (statuses as of 02/13/2024) Immunizations Name Administration Dates Next Due COVID-19, [...] money to get more. Never true 08/19/2023 Sex and Gender Information Value Date Recorded Sex Assigned at Female 07/22/2022 1:17 PM EST Gender Identity Female 07/22/2022 1:17 PM EST Sexual Orientation Straight 07/22/2022 1: 17 PM EST Job Start Date Occupation Industry Not on file Not on file Not on file documented as of this encounter Miscellaneous Notes * Telephone Encounter - Shaila Orozco RPh - 02/13/2024 1:54 PM EDTSigned Prescriptions: Disp Refills Furosemide 40 MG Oral Tablet (Lasix) 180 Ta*1 Sig: TAKE TWO TABLETS BY MOUTH EVERY MORNINGAuthorizing Provider: EDITH OSUNA User: MARIANO OROZCO A documented in this encounter Plan of Treatment Upcoming Encounters Date Type Department Care Team (Late st Contact Info) Description 02/17/2024 2:30 PM EDT Office Visit Cardiology [address] [place] [address] Ulices Phillips PA-C [address] [place] [address] 02/25/2024 2:20 PM EDT Office Visit Family Medicine [address] [place] [phone] Edith Osuna MD [address] [place] [address] [place] [address] 03/01/2024 6:30 AM EDT Anticoagulation Centralized Clinical Pharmacy Services, Luna Sears [address] [place] [address] [place] [address] [place] [address] 03/09/2024 6:10 PM EDT Pharmacy Pharmacy, [address] [place] [address] [place] [address] 03/18/2024 1:00 PM EDT PulmDiagnostic Pulmonary Function Lab, [facility] [address] [place] [address] [place], [address] [place] [address] 03/18/2024 3:00 PM EDT Office Visit Pulmonary Medicine, [facility] [address] [place] [address] Ariel Wing MD [address] [place] [address] 04/09/2024 2:30 PM EDT [facility] [address] [place] [address] Nette Dior RN [address] [place] [address] 07/26/2024 3:00 PM EST Office Visit Nephrology [address] [place] [address] Sonia Logan MD [address] [facility] [place] [address] 08/02/2024 2:30 PM EST Nurse Only Ancillary [address] [place] [address] [place], Nurse [address] [place] [address] Health Maintenance Due Date Last Done Comments *BISPHONATE OR OTHER ACCEPTABLE MEDICATION NEEDED FOR OSTEOPOROSIS (REFER TO SMARTSET #1146) 02/07/2023 Diabetic Foot Exam 05/31/2023 05/31/2022, 07/31/2021 CKD PHOS USE SMARTSET 57099 10/04/2023 10/04/2022, 1 09/30/2020 CKD HGB USE SMARTSET 76184 02/06/202402/05, 02/05/2023, 10/04/2022, Additional history exists GFR 06/30/2024 12/30/2023, 01/08, 10/04/2022, Additional history exists HbA1c 06/30/2024 12/30/2023, 01/08, 05/31/2022, Additional history exists DXA Scan 07/03/2024 07/03/2022, 07/03/2022 Albumin/Creatinine Ratio 08/29/202408/29/2 023, 05/31/2022, 08/28/2021, Additional history exists Diabetic Eye Exam 01/06/2025 01/07/2024, , 07/31/2021, Additional history exists O2 ASSESSMENT COMPLETED IN PAST YEAR FOR COPD 02/10/2025 02/11/2024 DTaP,Tdap,and Td Vaccines (2 - Td or Tdap) 11/24/2031 11/23/2021 (Not indicated) Zoster Vaccines Discontinued 03/20/2021 Pneumococcal Vaccine: 65+ Years Completed 07/31/2021, 02/15/2021 COVID-19 Vaccine Discontinued 08/14/2021, 01/20/2021 VITAMIN D LEVEL ONCE IN A LIFETIME-USE SMARTSET# 10209 Completed 02/05/2023 Influenza Vaccine (FLU shot) Completed [...] of this encounter Visit Diagnoses Diagnosis Chronic diastolic CHF (congestive heart failure) (HCC) Chronic diastolic heart failure documented in this encounter Care Teams Lending Manager Relationship Specialty Start Date End Date Edith Osuna MD [address] [place] [address] [place] [phone] PCP - General Family Medicine 02/15/21 documented as of this encounter
--- OUTSIDE RECORDS SUMMARY | 2024-05-12 05:17 | External Medical Summary | Summary of Care ---
Author Name Unknown Organization [facility] Address [address] [place] [facility] [place] [address] Phone [phone] Care Team Providers Care Cannon Crewmember Name Role Phone Edith Osuna MD Primary Care Prov ider Reason for Visit * Reason Comments [facility]: Maintenance Encounter Details Date Type Department Care Team (Late st Contact Info) Description 02/11/2024 4:00 PM EDT [facility] [address] [facility] [place] [address] Nette Dior, OCTAVIO [address] [facility] [place] [address] Allergies Active Allergy Reactions Criticality Noted Date Comments Abhinav Inhibitors Cough 12/25/2021 Aspirin 02/15/2021 "delgado" her stomach, had a GI bleed in the past Codeine 11/22/2020 Morphine 11/22/2020 Oxycodone 11/22/2020 Nausea, vomiting, chest pain Semaglutide(0.25 Or 0.5mg-Dos) Diarrhea 10/04/2022 Severe documented as of this encounter (statuses as of 02/11/2024) Medications Medication Sig Dispensed Refills Start Date End Date Status Ferrous Sulfate 325 (65 Fe) MG Oral Tablet (Feosol)Indications: anemia Take 1 Tablet by mouth daily with breakfast. 30 Tab 11/22/2020 Active Multivitamin Adult Oral TabletIndications:venegas pplementation Take by mouth 1 Tablet daily . 30 Tab 11/22/2020 Active Saline Nasal [place] 0.65 % Nasal SolutionIndications: for nasal dryness or congestion Administer 2 Sprays into each nostril in the morning and 2 Sprays at noon and 2 Sprays in the evening and 2 Sprays before bedtime. for nasal dryness or congestion. 60 mL 11/22/2020 Active [place] 3 1200 MG Oral CapsuleIndications:h e[facility] health [...] hemoglobin A1c goal of less than 8.0% ([facility]) Use to test blood sugar 3-4 times a day dx E11.9 400 Each 3 03/13/2021 Active OneTouch Verio In Vitro Strip (Glucose Blood)Indications:Ty pe 2 diabetes mellitus with hemoglobin A1c goal of less than 8.0% ([facility]) Use to test blood sugar 3-4 [...] hemoglobin A1c goal of less than 8.0% ([facility]) Twice a day 200 Each 1 [...] as needed (back). 30 Tablet 08/13/2023 Active Furosemide 40 MG Oral Tablet (Lasix)Indications:C hronic diastolic CHF (congestive heart failure) (HCC) TAKE TWO TABLETS BY MOUTH EVERY MORNING 180 Tablet 1 08/18/2023 Active DIURETIC TITRATION PLAN If no improvement on day 3, contact heart failure managing provider. 1 Each 08/21/2023 Active Omeprazole 20 MG Oral Capsule Delayed Release (PriLOSEC)Indication s:Gastro-esophageal reflux disease without esophagitis TAKE ONE CAPSULE BY MOUTH EVERY DAY 1 HOUR BEFORE THE FIRST MEAL OF THE DAY 90 Capsule 1 08/25/2023 4 Active dilTIAZem HCl ER Coated Beads 120 MG Oral Capsule Extended Release 24 Hour (Cardizem CD) TAKE ONE CAPSULE BY MOUTH EVERY DAY 90 Capsule 1 08/25/2023 4 Active Ketoconazole 2 % External CreamIndications:derrick h [...] hemoglobin A1c goal of less than 8.0% ([facility]) inject under the skin 42 units [...] (Aldactone)Indicatio ns:Chronic diastolic CHF (congestive heart failure) ([facility]) TAKE ONE TABLET BY MOUTH EVERY MORNING, AND ONE TABLET BEFORE BEDTIME 180 Tablet 1 12/25/2023 Active Metoprolol Succinate ER 50 MG Oral Tablet Extended Release 24 Hour (toPROL XL) TAKE ONE TABLET BY MOUTH EVERY DAY 90 Tablet 3 01/08/2024 Active Trelegy Ellipta 100-62.5-25 MCG/ACT Aerosol Powder Breath Activated (Fluticasone-Umeclid inium-Vilanterol)Ind ications:COPD, group B, by GOLD 2017 classification ([facility]) INHALE ONE PUFF BY MOUTH EVERY MORNING 180 Each 2 01/16/2024 5 Active Hospital, Clinic, or Other Facility Administered Medication Ordered Dose Route Frequency Start Date End Date Status Albuterol Sulfate (Proventil) (5 MG/ML) 0.5% *conc* inhalation solution 2.5 mgIndications:COPD, group B, by GOLD 2017 classification ([facility]),Chronic respiratory failure with hypoxia, on home oxygen therapy ([facility]) 2.5 mg NEBULIZER PRN 11/26/2023 11/25/2024 Acti ve Albuterol Sulfate (Proventil) (2.5 MG/3ML) 0.083% inhalation solution 2.5 mgIndications:COPD, group B, by GOLD 2017 classification ([facility]),Chronic respiratory failure with hypoxia, on home oxygen therapy ([facility]) 2.5 mg NEBULIZER PRN 11/26/2023 11/25/2024 Acti ve documented as of this encounter (statuses as of 02/11/2024) Active Problems Problem Noted Date Diagnosed Date COPD, group B, by GOLD 2017 classification 09/15 Overview: Per COPD GOLD Classification Age-related osteoporosis wit hout current pathological fracture 02/05/2023 Last Assessment & Plan: Currently on prolia injections Chronic respiratory failure with hypoxia, on home oxygen therapy 10/04/2022 Overview: Wearing 3L continuously Last Assessment & Plan: Wearing 3L continuously Subclinical hypothyroidism 10/04/2022 History of [place] (myocardial infarction) 05/31/2022 Type 2 diabetes mellitus [...] 68 11/22/2020 Coronary artery disease invo lving [place] coronary artery without angina pectoris 11/22/2020 Last [...] as of this encounter (statuses as of 02/11/2024) Resolved Problems Problem Noted Date Diagnosed Date Resolved Date COPD, severity to be determined 08/19/2022 09/18/2023 Overview: Per COPD GOLD Classification Last Assessment & Plan: "RED FLAG" COPD symptoms: Cough ("I get a different kind of cough than what I' have every day") Wheezing ("You can hear the whistling across the room") Medication Regimen All Classes - COLE Class D - Inhaled [place]-WQAI-RMNC Combination Inhaler (Trellegy) Remote Patient Monitoring Vendor: No Connected RPM Device(s): No current devices Self-Management plan Other/Additional Comments: rescue inhaler, contact [facility] Exacerbation plan Chest Xray Additional Comments: [...] as of this encounter (statuses as of 02/11/2024) Immunizations Name Administration Dates Next Due COVID-19, [...] Sign Reading Time Taken Comments Blood Pressure 118/76 02/11/2024 3:21 PM EDT Pulse 68 02/11/2024 3:21 PM EDT Temperature 36.7 C (98.1 F) 02/11/2024 3:21 PM ED T Respiratory Rate 18 02/11/2024 3:21 PM EDT Oxygen Saturation 96% 02/11/2024 3:21 PM EDT Inhaled Oxygen Concentration - - Weight - - Height - - Body Mass Index - - documented in this encounter Progress Notes * Nette Dior RN - 02/11/2024 3:21 PM EDT [facility] Visit Date: 02/11/2024 Time: 3:21 PM Name: Fani Merritt : 1945 Current Concerns: Patient seen for follow up- Afib, CHF, CKD, COPD, Respiratory failure, DM2 7 day blood sugar average- 249- has missed several MTM visits- encouraged to keep appointment. Son states some of the appointments he was not aware of. Patient does have my [facility]. Dexcom Reports doing well. Offers no complaints VS wnl Lungs clear but diminished Sob with exertion Oxygen dependence No LE edema noted Voiding without difficulty- denies UTI symptoms Bowels wnl- per report Appetite good Taking fluids well Problems/Symptoms: Review of Systems Constitutional: Negative. HENT: Negative. Respiratory: Positive for shortness of breath. Cardiovascular: Negative. Gastrointestinal: Negative. Genitourinary: Negative. Musculoskeletal: Positive for gait problem. Skin: Negative. Hematological: Negative. Psychiatric/Behavioral: Negative. Physical Exam: BP 118/76 (BP Site: Right Arm, BP Position: Sitting, BP Cuff Size: Regular) | Pulse 68 | Temp 36.7 C (98.1 F) (Tympanic) | Resp 18 | SpO2 96% Pain 0 Physical Exam Constitutional: Appearance: Normal appearance. Cardiovascular: Rate and Rhythm: Normal rate and regular rhythm. Pulses: Normal pulses. Pulmonary: Effort: Pulmonary effort is normal. Breath sounds: Normal breath sounds. Abdominal: General: Bowel sounds are normal. Palpations: Abdomen is soft. Musculoskeletal: General: Normal range of motion. Skin: General: Skin is warm and dry. Capillary Refill: Capillary refill takes 2 to 3 seconds. Neurological: General: No focal deficit present. Mental Status: She is alert and oriented to person, place, and time. Psychiatric: Mood and Affect: Mood normal. Behavior: Behavior normal. [facility] Completed this Visit: No. Routine visit Treatment/Plan: Oxygen continuous 2L via n/c Continue medications as prescribed Keep all upcoming MD appointments Blood sugars QID- Dexcom- keep MTM visits Fluids encouraged Fall precautions- cane with ambulation RN CM follow up in 8 weeks. Home Interventions Provided: Reinforced current Plan of Care, including self-management and medication regimen Patient's Goals of Care: "Straighten up my room" "Cook myself something to eat" To be able to walk further Patient's 'Red Flags': Increase in shortness of breath Increase swelling ble Blood sugars>300 or <80 Falls Patient Needs to Remember: Call [facility] at with any new or worsening health concerns or problems, red flag symptoms. Referrals Needed: N/a Follow Up: Is there cellular connectivity/connectivity in the home? Yes Does the patient have internet in the home? Yes Patient encouraged to call the intake phone number for all urgent but not emergent issues. Scheduled to follow up with patient in 8 weeks. Nette Vera, OCTAVIO 02/11/2024 3:21 PM documented in this encounter Plan of Treatment Upcoming Encounters Date Type Department Care Team (Late st Contact Info) Description 02/17/2024 2:30 PM EDT Office Visit Cardiology [address] [place] [address] Ulices Phillips PA-C [address] [facility] [place] [address] 02/25/2024 2:20 PM EDT Office Visit Family Medicine [address] [place] [phone] Edith Osuna MD [address] [place] [address] [place] [address] 03/01/2024 6:30 AM EDT Anticoagulation Centralized Clinical Pharmacy Services, Luna Sears [address] [place] [address] [place] [address] [place] [address] 03/09/2024 6:10 PM EDT Pharmacy Pharmacy, [address] [place] [address] [place] [address] 03/18/2024 1:00 PM EDT PulmDiagnostic Pulmonary Function Lab, [facility] [place] [address] [place], [address] [place] [address] 03/18/2024 3:00 PM EDT Office Visit Pulmonary Medicine, [facility] [address] [facility] [place] [address] Ariel Wing MD [address] [facility] [place] [address] 04/09/2024 2:30 PM EDT [facility] Visit [facility] [address] [facility] [place] [address] Nette Dior RN [address] [facility] [place] [address] 07/26/2024 3:00 PM EST Office Visit Nephrology [address] [place] [address] Sonia Logan MD [address] [facility] [address] 08/02/2024 2:30 PM EST Nurse Only Ancillary [address] [place] [address] [place], Nurse Annual [address] [place] [address] Health Maintenance Due Date Last Done Comments *BISPHONATE OR OTHER ACCEPTABLE MEDICATION NEEDED FOR OSTEOPOROSIS (REFER TO SMARTSET #1146) 02/07/2023 Diabetic Foot Exam 05/31/2023 05/31/2022, 07/31/2021 CKD PHOS USE SMARTSET 42365 10/04/2023 10/04/2022, 1 09/30/2020 CKD HGB USE SMARTSET 06321 02/06/202402/05, 02/05/2023, 10/04/2022, Additional history exists GFR 06/30/2024 12/30/2023, 01/08, 10/04/2022, Additional history exists HbA1c 06/30/2024 12/30/2023, 01/08, 05/31/2022, Additional history exists DXA Scan 07/03/2024 07/03/2022, 07/03/2022 Albumin/Creatinine Ratio 08/29/2024 023, 05/31/2022, 08/28/2021, Additional [...] D LEVEL ONCE IN A LIFETIME-USE SMARTSET# 24408 Completed 02/05/2023 Influenza Vaccine (FLU shot) Completed [...] filedocumented as of this encounter Care Teams Cannon Crewmember Relationship Specialty Start Date End Date Edith Osuna MD [address] [place] [address] [place] [address] PCP - General Family Medicine 02/15/21 documented as of this encounter
--- OUTSIDE RECORDS SUMMARY | 2024-05-12 05:17 | External Medical Summary | Summary of Care ---
Author Name Unknown Organization [facility] Address [address] [place] [address] Phone [phone] Care Team Providers Care Carton Lettering Machine Operator Name Role Phone Saida Osuna MD Primary Care Prov ider Reason for Referral * Evaluate & Treat - Unlimited Visits (Within 10 days (routine)) - Authorized Specialty Diagnoses / Procedures Referred By Contac t Referred To Contact Podiatry Diagnoses Type 2 diabetes mellitus with hemoglobin A1c goal of less than 8.0% ([facility]) Saida Osuna MD [address] [place] [address] [place] [address] Referral ID Status Reason Start Date Expiration Date Visits Requested Visits Authorized [id number] Authorized Specialty Services Required 02/25/[phone] Question Answer Referral Priority Within 10 days (routine) Where should this appointment be scheduled? [facility] Which condition are you referring this patient for? Nail trimming Medicare Patient? Yes Can Patient perform routine footcare without assistance? No Does patient have a chronic condition? Yes Has patient been seen in the past 6 months? Yes Date last seen for chronic condition: 02/25/2024 Who saw patient for chronic condition? saida kruse MD Reason for Visit * Reason Comments Follow Up 6 mo f/u Encounter Details Date Type Department Care Team (Latest Contact Info) Description 02/25/2024 2:20 PM EDT Office Visit Family Medicine [address] [place] [phone] Saida Osuna MD [address] [place] [address] [place] [phone] Annual physical exam*; Type 2 diabetes mellitus with hemoglobin A1c goal of less than 8.0% ([facility]); Gastro-esophageal reflux disease without esophagitis; Chronic diastolic CHF (congestive heart failure) ([facility]); COPD, group B, by GOLD 2017 classification ([facility]); Type 2 diabetes mellitus with stage 3b chronic kidney disease, with long-term current use of insulin ([facility]); Elevated TSH; Chronic pain syndrome; DDD (degenerative disc disease), lumbar; Age-related osteoporosis without current pathological fracture Allergies Active Allergy Reactions Criticality Noted Date Comments Abhinav Inhibitors Cough 12/25/2021 Aspirin 02/15/2021 "delgado" her stomach, had a GI bleed in the past Codeine 11/22/2020 Morphine 11/22/2020 Oxycodone 11/22/2020 Nausea, vomiting, chest pain Semaglutide(0.25 Or 0.5mg-Dos) Diarrhea 10/04/2022 Severe documented as of this encounter (statuses as of 02/25/2024) Medications Medication Sig Dispensed Refills Start Date End Date Status Ferrous Sulfate 325 (65 Fe) MG Oral Tablet (Feosol)Indications: anemia Take 1 Tablet by mouth daily with breakfast. 30 Tab 11/22/2020 Active Multivitamin Adult Oral TabletIndications:venegas pplementation Take by mouth 1 Tablet daily . 30 Tab 11/22/2020 Active Saline Nasal Gresham 0.65 % Nasal SolutionIndications: for nasal dryness or congestion Administer 2 Sprays into each nostril in the morning and 2 Sprays at noon and 2 Sprays in the evening and 2 Sprays before bedtime. for nasal dryness or congestion. 60 mL 11/22/2020 Active Spencer 3 1200 MG Oral CapsuleIndications:[facility] e[facility] health [...] hemoglobin A1c goal of less than 8.0% ([facility]) Use to test blood sugar 3-4 times a day dx E11.9 400 Each 3 03/13/2021 Active OneTouch Verio In Vitro Strip (Glucose Blood)Indications:Ty pe 2 diabetes mellitus with hemoglobin A1c goal of less than 8.0% ([facility]) Use to test blood sugar 3-4 times a day dx e11.9 400 Strip 3 03/13/2021 Active FreeStyle Robbin 2 Sensor Use as directed. Active Magnesium Oxide 400 (240 Mg) MG Oral TabletIndications:Ch ronic diastolic CHF (congestive heart failure) ([facility]) Take 1 Tab by mouth daily. 28 Tab 5 04/19/2021 Active oxygen IN GAS Use 2 L/min(Oxygen) as directed continuous. Active Insulin Syringes (Disposable) U-100 1 MLIndications:Type 2 diabetes mellitus with hemoglobin A1c goal of less than 8.0% ([facility]) Twice a day 200 Each 1 11/23/2021 [...] all other days or as directed by [employer] 135 Tablet 3 09/24/2023 Active FLUoxetine HCl 20 MG Oral Capsule (PROzac)Indications: Moderate episode of recurrent major depressive disorder ([facility]) TAKE ONE CAPSULE BY MOUTH EVERY DAY 90 Capsule 09/25/2023 Active BD Pen Needle Stephanie U/F 32G X 4 MM (Insulin Pen Needle) Use as directed to inject insulin up to three times daily 300 Each 11/04/2023 Active NovoLOG FlexPen 100 UNIT/ML Subcutaneous [...] hemoglobin A1c goal of less than 8.0% ([facility]) inject under the skin 42 units before bedtime 45 mL 11/26/2023 Active Atorvastatin Calcium 40 MG Oral Tablet (Lipitor) Take 1 Tablet by mouth in the morning. 90 Tablet 1 12/11/2023 Active Spironolactone 25 MG Oral Tablet (Aldactone)Indicatio ns:Chronic diastolic CHF (congestive heart failure) ([facility]) TAKE ONE TABLET BY MOUTH EVERY MORNING, AND ONE TABLET BEFORE BEDTIME 180 Tablet 1 12/25/2023 5 Active Metoprolol Succinate ER 50 MG Oral Tablet Extended Release 24 Hour (toPROL XL) TAKE ONE TABLET BY MOUTH EVERY DAY 90 Tablet 3 01/08/2024 5 Active Trelegy Ellipta 100-62.5-25 MCG/ACT Aerosol Powder Breath Activated (Fluticasone-Umeclid inium-Vilanterol)Ind ications:COPD, group B, by GOLD 2017 classification ([facility]) INHALE ONE PUFF BY MOUTH EVERY MORNING 180 Each 2 01/16/2024 Active Furosemide 40 MG Oral Tablet (Lasix)Indications:C hronic diastolic CHF (congestive heart failure) ([facility]) TAKE TWO TABLETS BY MOUTH EVERY MORNING [...] mgIndications:COPD, group B, by GOLD 2017 classification ([facility]),Chronic respiratory failure with hypoxia, on home oxygen therapy ([facility]) 2.5 mg NEBULIZER PRN 11/26/2023 11/25/2024 Acti ve Albuterol Sulfate (Proventil) (2.5 MG/3ML) 0.083% inhalation solution 2.5 mgIndications:COPD, group B, by GOLD 2017 classification ([facility]),Chronic respiratory failure with hypoxia, on home oxygen therapy ([facility]) 2.5 mg NEBULIZER PRN 11/26/2023 11/25/2024 Acti ve documented as of this encounter (statuses as of 02/25/2024) Active Problems Problem Noted Date Diagnosed Date COPD, group B, by GOLD 2017 classification 09/15 Overview: Per COPD GOLD Classification Age-related osteoporosis wit hout current pathological fracture 02/05/2023 Last Assessment & Plan: Currently on prolia injections Chronic respiratory failure with hypoxia, on home oxygen therapy 10/04/2022 Overview: Wearing 3L continuously Last Assessment & Plan: Wearing 3L continuously Subclinical hypothyroidism 10/04/2022 History of FL (myocardial infarction) 05/31/2022 Type 2 diabetes mellitus [...] 68 11/22/2020 Coronary artery disease invo lving kotlik coronary artery without angina pectoris 11/22/2020 Last [...] as of this encounter (statuses as of 02/25/2024) Resolved Problems Problem Noted Date Diagnosed Date Resolved Date COPD, severity to be determined 08/19/2022 09/18/2023 Overview: Per COPD GOLD Classification Last Assessment & Plan: "RED FLAG" COPD symptoms: Cough ("I get a different kind of cough than what I' have every day") Wheezing ("You can hear the whistling across the room") Medication Regimen All Classes - COLE Class D - Inhaled Muhgzbmanyaaox-AYJH-DSWH Combination Inhaler (Trellegy) Remote Patient Monitoring Vendor: No Connected RPM Device(s): No current devices Self-Management plan Other/Additional Comments: rescue inhaler, contact [facility] Exacerbation plan Chest Xray Additional Comments: [...] as of this encounter (statuses as of 02/25/2024) Immunizations Name Administration Dates Next Due COVID-19, [...] 0 02/07/1958 - 09/08/2000 Smokeless Tobacco: Never Tobacco Cessation:Counseling Given: Not Answered Alcohol Use Standard Drinks/Week Comments Not Currently [...] No 08/19/2023 Does the household have a [facility] source of income? (Household - for ages [...] Sign Reading Time Taken Comments Blood Pressure 100/64 02/25/2024 2:20 PM EDT Pulse 88 02/25/2024 2:20 PM EDT Temperature 36.3 C (97.4 F) 02/25/2024 2:20 PM ED T Respiratory Rate - - Oxygen Saturation 98% 02/25/2024 2:20 PM EDT Inhaled Oxygen Concentration - - Weight 99.4 kg (219 lb 3.2 oz) 02/25/2024 2:20 P M EDT Height - - Body Mass Index 38.83 11/26/2023 2:29 PM EDT documented in this encounter Progress Notes * Saida Osuna MD - 02/25/2024 2:29 PM EDT Subjective Fani Merritt is a 78 year old female. Chief Complaint Patient presents with Follow Up 6 mo f/u HPI: Here today for routine chronic disease management and preventive care. COPD. Has known h/o COPD and is dependant on 3lpm SpO2. On Trelegy daily. Occasional cough/wheeze but uses her inhalers which helps. DM2/ Lipids. Last A1C 7.8.. Making low carb choices when she can. Last LDL 101. On tresiba 42 unitsdaily and novolog. Atorvastatin 40mg daily. Was working with MTM but missed an appt and needs to get rescheduled. Needs a new glucometer. HTN. Well managed on jacey, furosemide, dilt, metoprolol. GFR stable 32. Afib/CHF. Had echocardiogram 2018 with EF 60%. On jacey 25mg, furosemide 80mg daily. Warfarin managed per MTM. Metoprolol 50mg daily, diltiazem 120mg, plavix. Denies CP, palpitations and leg swelling. Thyroid. Last TSH 4.92. Osteoporosis. Managed per Rheum with [facility]. Depression. Managed with prozac 20mg daily. Feels her mental health is good. Preventive: Labs, foot exam. 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 Paroxysmal atrial fibrillation ([facility]) Ulnar neuropathy of right upper extremity Drug-induced constipation Chronic pain syndrome DDD (degenerative disc disease), lumbar Moderate episode of recurrent major depressive disorder ([facility]) Hypokalemia Gastro-esophageal reflux disease without esophagitis Type 2 diabetes mellitus with stage 3b chronic kidney disease, with long-term current use of insulin ([facility]) Hypertensive heart and kidney disease with chronic diastolic congestive heart failure and stage 3b chronic kidney disease (HCC) History of [place] (myocardial infarction) Chronic respiratory failure with hypoxia, on home oxygen therapy ([facility]) Subclinical hypothyroidism Age-related osteoporosis without current pathological fracture COPD, group B, by GOLD 2017 classification ([facility]) Current Outpatient Medications Medication Sig Dispense Refill Ferrous Sulfate 325 (65 Fe) MG Oral Tablet (Feosol) Take 1 Tablet by mouth daily with breakfast. 30Tab 0 Multivitamin Adult Oral Tablet Take by mouth 1 Tablet daily . 30 Tab 0 Saline Nasal Gresham 0.65 % Nasal Solution Administer 2 Sprays into each nostril in the morning and 2Sprays at noon and 2 Sprays in the evening and 2 Sprays before bedtime. for nasal dryness or congestion. 60 mL 0 Spencer 3 1200 MG Oral Capsule Take by mouth 2 Capsules every night at bedtime . 60 Cap 0 Acetaminophen 325 MG Oral Tablet (Tylenol) Take 2 Tablets by mouth every 4 hours as needed for Fever (Temp Greater than ) or Pain, Mild. 100 Tab 0 OneTouch Delica Lancets 30G Use to test blood sugar 3-4 times a day dx E11.9 400 Each 3 OneTouch Verio In Vitro Strip (Glucose Blood) Use to test blood sugar 3-4 times a day dx e11.9 400 Strip 3 FreeStyle Robbin 2 Sensor Use as directed. Magnesium Oxide 400 (240 Mg) MG Oral Tablet Take 1 Tab by mouth daily. 28 Tab 5 oxygen IN GAS Use 2 L/min(Oxygen) as directed continuous. Insulin Syringes (Disposable) U-100 1 ML Twice a day 200 Each 1 Ocuvite-Lutein Oral Tablet Take by mouth 1 Tablet daily . Calcium Carbonate-Vitamin D 600-200 MG-UNIT Oral Tablet Take 1 Tablet by mouth in the morning. Albuterol Sulfate 108 (90 Base) MCG/ACT Inhalation Aerosol Powder Breath Activated Inhale by mouth 2 Puffs every 4 hours . For wheezing 3 Each 3 Senna 8.6 MG Oral Capsule Take 1 Tablet by mouth in the morning. As needed constipation . HYDROcodone-Acetaminophen 5-325 MG Oral Tablet Take 1 Tablet by mouth every 8 hours as needed (back). 30 Tablet 0 DIURETIC TITRATION PLAN If no improvement on day 3, contact heart failure managing provider. 1 Each0 Ketoconazole 2 % External Cream Apply to rash twice a day until clear 60 g 3 BD Insulin Syringe U/F 31G X 5/16" 0.5 ML (Insulin Syringe-Needle U-100) use twice daily 200 Each 1 Clopidogrel Bisulfate 75 MG Oral Tablet (pLAVix) TAKE ONE TABLET BY MOUTH EVERY DAY 90 Tablet 1 Warfarin Sodium 2.5 MG Oral Tablet (Coumadin) Take 2.5mg (1 tablet) on Mon,Wed and Fri and 2 tablets (5mg) all other days or as directed by [employer] 135 Tablet 3 FLUoxetine HCl 20 MG Oral Capsule (PROzac) TAKE ONE CAPSULE BY MOUTH EVERY DAY 90 Capsule 1 BD Pen Needle Stephanie U/F 32G X 4 MM (Insulin Pen Needle) Use as directed to inject insulin up to three times daily 300 Each 3 NovoLOG FlexPen 100 UNIT/ML Subcutaneous Solution Pen-injector (insulin aspart) Inject 10 Units under the skin daily before breakfast AND 10 Units daily before dinner. 15 mL 3 traZODone HCl 50 MG Oral Tablet (Desyrel) TAKE ONE TABLET BY MOUTH EVERY DAY AT BEDTIME 90 Tablet 1 Tresiba FlexTouch 100 UNIT/ML Subcutaneous Solution Pen-injector (Insulin Degludec) inject under the skin 42 units before bedtime 45 mL 1 Atorvastatin Calcium 40 MG Oral Tablet (Lipitor) Take 1 Tablet by mouth in the morning. 90 Tablet 1 Spironolactone 25 MG Oral Tablet (Aldactone) TAKE ONE TABLET BY MOUTH EVERY MORNING, AND ONE TABLETBEFORE BEDTIME 180 Tablet 1 Metoprolol Succinate ER 50 MG Oral Tablet Extended Release 24 Hour (toPROL XL) TAKE ONE TABLET BY MOUTH EVERY DAY 90 Tablet 3 Trelegy Ellipta 100-62.5-25 MCG/ACT Aerosol Powder Breath Activated (Zbvrvepljwa-Pzttojsjvutl-Mavuixktqj) INHALE ONE PUFF BY MOUTH EVERY MORNING 180 Each 2 Furosemide 40 MG Oral Tablet (Lasix) TAKE TWO TABLETS BY MOUTH EVERY MORNING 180 Tablet 1 Ezetimibe 10 MG Oral Tablet (Zetia) Take 1 Tablet by mouth daily. 100 Tablet 3 Omeprazole 20 MG Oral Capsule Delayed Release (PriLOSEC) TAKE ONE CAPSULE BY MOUTH EVERY DAY 1 HOURBEFORE THE FIRST MEAL OF THE DAY 90 Capsule 1 dilTIAZem HCl ER Coated Beads 120 MG Oral Capsule Extended Release 24 Hour (Cardizem CD) TAKE ONE CAPSULE BY MOUTH EVERY DAY 90 Capsule 1 Current Facility-Administered Medications Medication Dose Route Frequency Provider Last Rate Last Admin Albuterol Sulfate (Proventil) (5 MG/ML) 0.5% *conc* inhalation solution 2.5 mg 2.5 mg Nebulizer Ariel Chase MD Albuterol Sulfate (Proventil) (2.5 MG/3ML) 0.083% inhalation solution 2.5 mg 2.5 mg Nebulizer PRN Ariel Wing MD Review of patient's allergies indicates: Allergen Reactions Abhinav Inhibitors Cough Aspirin "delgado" her stomach, had a GI bleed in the past Codeine Morphine Oxycodone Nausea, vomiting, chest pain Ozempic (0.25 Or 0.5 Mg-Dose) [Semaglutide(0.25 Or 0.5mg-Dos)] Diarrhea Severe Objective BP 100/64 | Pulse 88 | Temp 36.3 C (97.4 F) (Tympanic) | Wt 99.4 kg (219 lb 3.2 oz) | SpO2 98% | BMI 38.83 kg/m | BSA 2.1 m Awake, alert, NAD, wearing nasal oxygen cannula Physical Exam Constitutional: Appearance: Normal appearance. Cardiovascular: Rate and Rhythm: Normal rate and regular rhythm. Pulses: Normal pulses. Heart sounds: Normal heart sounds. Pulmonary: Effort: Pulmonary effort is normal. Breath sounds: Normal breath sounds. Abdominal: General: Abdomen is flat. Bowel sounds are normal. Palpations: Abdomen is soft. Musculoskeletal: General: Tenderness present. Right lower leg: Edema present. Left lower leg: Edema present. Comments: Trace bilat le edema + lumbar TTP Neurological: Mental Status: She is alert. ASSESSMENT/PLAN: Annual physical exam (Primary) Type 2 diabetes mellitus with hemoglobin A1c goal of less than 8.0% ([facility]) - PODIATRY REFERRAL OP - RENAL FUNCTION PANEL; Future; Expected date: 02/25/2024 - HGB; Future; Expected date: 02/25/2024 - HEMOGLOBIN A1C; Future; Expected date: 08/26/2024 Gastro-esophageal reflux disease without esophagitis Chronic diastolic CHF (congestive heart failure) ([facility]) COPD, group B, by GOLD 2017 classification ([facility]) Type 2 diabetes mellitus with stage 3b chronic kidney disease, with long-term current use of insulin ([facility]) - RENAL FUNCTION PANEL; Future; Expected date: 02/25/2024 - HGB; Future; Expected date: 02/25/2024 Elevated TSH - TSH WITH FREE T4 IF INDICATED; Future; Expected date: 08/26/2024 Chronic pain syndrome DDD (degenerative disc disease), lumbar Age-related osteoporosis without current pathological fracture - 25-HYDROXY VITAMIN D; Future; Expected date: 02/25/2024 Continue current medications Update labs as above Encourage walking to improve back pain - can call for PT referral if she wishes Saida Alvarez MD documented in this encounter Nursing Notes * Hank Elise LPN - 02/25/2024 2:25 PM EDT Chief Complaint Patient presents with Follow Up 6 mo f/u No new issues today Request Podiatry Ref to get Toe nails trimmed The patient has been properly identified by confirmation of name and date of . documented in this encounter Plan of Treatment Upcoming Encounters Date Type Department Care Team (Late st Contact Info) Description 03/01/2024 6:30 AM EDT Anticoagulation Centralized Clinical Pharmacy Services, Luna Sears [address] [place] [address] [place] [address] [place] [address] 03/09/2024 6:10 PM EDT Pharmacy Pharmacy, [address] [place] [address] [place] [address] 03/18/2024 1:00 PM EDT PulmDiagnostic Pulmonary Function Lab, [facility] [address] [facility] [place] [address] [place], [address] [facility] [place] [address] 03/18/2024 3:00 PM EDT Office Visit Pulmonary Medicine, [facility] [place] [address] Ariel Wing MD [address] [place] [address] 04/09/2024 2:30 PM EDT Home Visit [facility], [facility] [place] [address] Nette Dior RN [address] [facility] [place] [phone] 07/26/2024 3:00 PM EST Office Visit Nephrology [address] [place] [address] [facility]onia Logan [facility] [address] [facility] [address] 08/02/2024 2:30 PM EST Nurse Only Ancillary [address] [place] [address] [place], Nurse [address] [place] [address] 08/18/2024 2:30 PM EST Cardiac Studies Cardiac Studies, [facility] [address] [facility] [place] [address] 08/27/2024 1:20 PM EST Office Visit Family Medicine [address] [place] [phone] Marnie Reyes [address] [place] [phone] 09/07/2024 3:00 PM EST Office Visit Cardiology [address] [place] [address] Ulices Phillips PA-C [address] [facility] [place] [address] 03/02/2025 2:20 PM EDT Office Visit Family Medicine [address] [place] [phone] Saida Osuna MD [address] [place] [address] [place] [address] Scheduled Orders Name Type Priority Associated Diagnoses Orde r Schedule RENAL FUNCTION PANEL Lab Routine Type 2 diabetes mellitus with hemoglobin A1c goal of less than 8.0% (HCC) Type 2 diabetes mellitus with stage 3b chronic kidney disease, with long-term current use of insulin (HCC) Expected: 02/25/2024 (Approximate), Expires: 02/24/2025 HGB Lab Routine Type 2 diabetes mellitus with hemoglobin A1c goal of less than 8.0% (HCC) Type 2 diabetes mellitus with stage 3b chronic kidney disease, with long-term current use of insulin (HCC) Expected: 02/25/2024 (Approximate), Expires: 02/24/2025 HEMOGLOBIN A1C Lab Routine Type 2 diabetes mellitus with hemoglobin A1c goal of less than 8.0% (HCC) Expected: 08/26/2024 (Approximate), Expires: 02/24/2025 TSH WITH FREE T4 IF INDICATED Lab Routine Elevated TSH Expected: 08/26/2024 (Approximate), Expires: 02/24/2025 25-HYDROXY VITAMIN D Lab Routine Age-related osteoporosis without current pathological fracture Expected: 02/25/2024 (Approximate), Expires: 02/24/2025 Scheduled Referrals Name Type Priority Associated Diagnoses Orde r Schedule PODIATRY REFERRAL OP Referral Within 10 days (routine) Type 2 diabetes mellitus with hemoglobin A1c goal of less than 8.0% (HCC) Ordered: 02/25/2024 Health Maintenance Due Date Last Done Comments Diabetic Foot Exam 05/31/2023 05/31/2022, 07/31/2021 CKD PHOS USE SMARTSET [id number] 10/04/2023 10/04/2022, 1 09/30/2020 CKD HGB USE SMARTSET [id number] 02/06/202402/05, 02/05/2023, 10/04/2022, Additional history exists GFR [...] D LEVEL ONCE IN A LIFETIME-USE SMARTSET# [id number] Completed 02/05/2023 Influenza Vaccine (FLU shot) Completed [...] as of this encounter Visit Diagnoses Diagnosis Annual physical exam- Primary Routine general medical examination at a health care facility Type 2 diabetes mellitus with hemoglobin A1c goal of less than 8.0% (HCC) Gastro-esophageal reflux disease without esophagitis Esophageal reflux Chronic diastolic CHF (congestive heart failure) (HCC) Chronic diastolic heart failure COPD, group B, by GOLD 2017 classification (HCC) Type 2 diabetes mellitus with stage 3b chronic kidney disease, with long-term current use of insulin (HCC) Elevated TSH Other abnormal blood chemistry Chronic pain syndrome DDD (degenerative disc disease), lumbar Degeneration of lumbar or lumbosacral intervertebral disc Age-related osteoporosis without current pathological fracture Senile osteoporosis documented in this encounter Care Teams Carton Lettering Machine Operator Relationship Specialty Start Date End Date Saida Osuna MD [address] [place] [address] [place] [id number] PCP - General Family Medicine 02/15/21 documented as of this encounter
--- OUTSIDE RECORDS SUMMARY | 2024-05-12 05:17 | External Medical Summary | Summary of Care ---
Author Name Unknown Organization [facility] Address [address] [address] Phone [phone] Care Team Providers [facility] Director Name Role Phone Edith Osuna MD Primary Care Prov ider Reason for Referral * Precert (Within 10 days (routine)) - Authorized Specialty Diagnoses / Procedures Referred By Contac t Referred To Contact Cardiac Studies Diagnoses Cardiac pacemaker in situ S/P MVR (mitral valve replacement) Procedures ECHO, COMPLETE (2D), TRANS-THORACIC Ulices Phillips PA-C [address] [place] [id number] Referral ID Status Reason Start Date Expiration Date V isits Requested Visits Authorized [id number] Authorized Precert 08/18/2024 999 999 Reason for Visit * Reason Comments Follow Up 3 month follow up. D oing about the same. Encounter Details Date Type Department Care Team (Latest Contact Info) Description 02/17/2024 2:30 PM EDT Office Visit Cardiology [address] [place] [address] Ulices Phillips PA-C [address] [place] [address] ASCVD (arteriosclerotic cardiovascular disease)*; Cardiac pacemaker in situ; Sinoatrial node dysfunction ([facility]); S/P MVR (mitral valve replacement); Chronic atrial fibrillation ([facility]); Chronic diastolic CHF (congestive heart failure) ([facility]); Hypertensive heart and kidney disease with chronic diastolic congestive heart failure and stage 3b chronic kidney disease ([facility]); Dyslipidemia, goal LDL below 70 Allergies Active Allergy Reactions Criticality Noted Date Comments Abhinav Inhibitors Cough 12/25/2021 Aspirin 02/15/2021 "delgado" her stomach, had a GI bleed in the past Codeine 11/22/2020 Morphine 11/22/2020 Oxycodone 11/22/2020 Nausea, vomiting, chest pain Semaglutide(0.25 Or 0.5mg-Dos) Diarrhea 10/04/2022 Severe documented as of this encounter (statuses as of 02/17/2024) Medications Medication Sig Dispensed Refills Start Date End Date Status Ferrous Sulfate 325 (65 Fe) MG Oral Tablet (Feosol)Indications :anemia Take 1 Tablet by mouth daily with breakfast. 30 Tab 11/22/2020 Active Multivitamin Adult Oral TabletIndications:s upplementation Take by mouth 1 Tablet daily . 30 Tab 11/22/2020 Active Saline Nasal [place] 0.65 % Nasal SolutionIndications :for nasal dryness or congestion Administer 2 Sprays into each nostril in the morning and 2 Sprays at noon and 2 Sprays in the evening and 2 Sprays before bedtime. for nasal dryness or congestion. 60 mL 11/22/2020 Active Liberty 3 1200 MG Oral CapsuleIndications: heart health Take by mouth 2 Capsules every night at bedtime . 60 Cap 11/22/2020 Active Acetaminophen 325 MG Oral Tablet (Tylenol)Indication s:as needed for pain/fever Take 2 Tablets by mouth every 4 hours as needed for Fever (Temp Greater than ) or Pain, Mild. 100 Tab 11/22/2020 Active PowerStoresTouch Delica Lancets 30GIndications:Type 2 diabetes mellitus with hemoglobin A1c goal of less than 8.0% ([facility]) Use to test blood sugar 3-4 times a day dx E11.9 400 Each 3 03/13/2021 Active OneTouch Verio In Vitro Strip (Glucose Blood)Indications:T ype 2 diabetes mellitus with hemoglobin A1c goal of less than 8.0% ([facility]) Use to test blood sugar 3-4 times a day dx e11.9 400 Strip 3 03/13/2021 Active FreeStyle Robbin 2 Sensor Use as directed. Active Magnesium Oxide 400 (240 Mg) MG Oral TabletIndications:C hronic diastolic CHF (congestive heart failure) ([facility]) Take 1 Tab by mouth daily. 28 Tab 5 04/19/2021 Active oxygen IN GAS Use 2 L/min(Oxygen) as directed continuous. Active Insulin Syringes (Disposable) U-100 1 MLIndications:Type 2 diabetes mellitus with hemoglobin A1c goal of less than 8.0% ([facility]) Twice a day 200 [...] Syringe-Needle U-100) use twice daily 200 Each 09/22/2023 Active Clopidogrel Bisulfate 75 MG Oral Tablet (pLAVix) TAKE ONE TABLET BY MOUTH EVERY DAY 90 Tablet 1 09/23/2023 09/22/19 25 Active Warfarin Sodium 2.5 MG Oral Tablet (Coumadin)Indicatio ns:Paroxysmal atrial fibrillation (HCC),H/O mitral valve replacement with mechanical valve Take 2.5mg (1 tablet) on Mon,Wed and Fri and 2 tablets (5mg) all other days or [facility] 135 Tablet 3 09/24/2023 Active FLUoxetine HCl 20 MG Oral Capsule (PROzac)Indications :Moderate episode of recurrent major depressive disorder ([facility]) TAKE ONE CAPSULE BY MOUTH EVERY DAY 90 Capsule 09/25/2023 09/24/19 25 Active BD Pen Needle Stephanie U/F 32G X 4 MM (Insulin Pen Needle) Use as directed to inject insulin up to three times daily 300 Each 11/04/2023 Active NovoLOG FlexPen 100 UNIT/ML Subcutaneous Solution Pen-injector (insulin aspart) Inject 10 Units under the skin daily before breakfast AND 10 Units daily before dinner. 15 mL 11/04/2023 Active traZODone HCl 50 MG Oral Tablet (Desyrel) TAKE ONE TABLET BY MOUTH EVERY DAY AT BEDTIME 90 Tablet 1 11/18/2023 11/18/19 25 Active Tresiba FlexTouch 100 UNIT/ML Subcutaneous Solution Pen-injector (Insulin Degludec)Indication s:Type 2 diabetes mellitus with hemoglobin A1c goal of less than 8.0% ([facility]) inject under the skin 42 units before bedtime 45 mL 11/26/2023 Active Atorvastatin Calcium 40 MG Oral Tablet (Lipitor) Take 1 Tablet by mouth in the morning. 90 Tablet 1 12/11/2023 Active Spironolactone 25 MG Oral Tablet (Aldactone)Indicati ons:Chronic diastolic CHF (congestive heart failure) ([facility]) TAKE ONE TABLET BY [...] ndications:COPD, group B, by GOLD 2017 classification ([facility]) INHALE ONE PUFF BY MOUTH EVERY MORNING 180 Each 2 01/16/2024 01/16/20 25 Active Furosemide 40 MG Oral Tablet (Lasix)Indications: Chronic diastolic CHF (congestive heart failure) ([facility]) TAKE TWO TABLETS BY MOUTH EVERY MORNING 180 Tablet 1 02/13/2024 Active Ezetimibe 10 MG Oral Tablet (Zetia)Indications: Dyslipidemia, goal LDL below 70 Take 1 Tablet by mouth daily. 100 Tablet 3 02/17/2024 Active Doxycycline Hyclate 100 MG Oral Capsule Take 1 Capsule by mouth in the morning and 1 Capsule before bedtime. until gone.. 20 Capsule 11/26/2023 02/17/20 24 Discontinu ed(End of Procedure) Hospital, Clinic, or Other Facility Administered Medication Ordered Dose Route Frequency Start Date End Date Status Albuterol Sulfate (Proventil) (5 MG/ML) 0.5% *conc* inhalation solution 2.5 mgIndications:COPD, group B, by GOLD 2017 classification ([facility]),Chronic respiratory failure with hypoxia, on home oxygen therapy ([facility]) 2.5 mg NEBULIZER PRN 11/26/2023 11/25/2024 Acti ve Albuterol Sulfate (Proventil) (2.5 MG/3ML) 0.083% inhalation solution 2.5 mgIndications:COPD, group B, by GOLD 2017 classification ([facility]),Chronic respiratory failure with hypoxia, on home oxygen therapy ([facility]) 2.5 mg NEBULIZER PRN 11/26/2023 11/25/2024 Acti ve documented as of this encounter (statuses as of 02/17/2024) Active Problems Problem Noted Date Diagnosed Date COPD, group B, by GOLD 2017 classification 09/15 Overview: Per COPD GOLD Classification Age-related osteoporosis wit hout current pathological fracture 02/05/2023 Last Assessment & Plan: Currently on prolia injections Chronic respiratory failure with hypoxia, on home oxygen therapy 10/04/2022 Overview: Wearing 3L continuously Last Assessment & Plan: Wearing 3L continuously Subclinical hypothyroidism 10/04/2022 History of SC (myocardial infarction) 05/31/2022 Type 2 diabetes mellitus [...] 68 11/22/2020 Coronary artery disease invo lving [place] coronary artery without angina pectoris 11/22/2020 Last [...] as of this encounter (statuses as of 02/17/2024) Resolved Problems Problem Noted Date Diagnosed Date Resolved Date COPD, severity to be determined 08/19/2022 09/18/2023 Overview: Per COPD GOLD Classification Last Assessment & Plan: "RED FLAG" COPD symptoms: Cough ("I get a different kind of cough than what I' have every day") Wheezing ("You can hear the whistling across the room") Medication Regimen All Classes - COLE Class D - Inhaled Pszmwucobqfewc-SMRN-IGPX Combination Inhaler (NetScientificllegy) Remote Patient Monitoring Vendor: No Connected RPM Device(s): No current devices Self-Management plan Other/Additional Comments: rescue inhaler, contact [facility] Exacerbation plan Chest Xray Additional Comments: [...] as of this encounter (statuses as of 02/17/2024) Immunizations Name Administration Dates Next Due COVID-19, mRNA, LNP-s, PF, B ooster, 100mcg/0.5mg (Moderna) 08/14/2021 Covid-19 Ad26, Single Dose (Velma/J&J) Pneumococcal Conjugate Vacc, 13 Valent (Prevnar) 02/15/2021 [...] Sign Reading Time Taken Comments Blood Pressure 112/74 02/17/2024 2:47 PM EDT Pulse 76 02/17/2024 2:47 PM EDT Temperature - - Respiratory Rate 18 02/17/2024 2:47 PM EDT Oxygen Saturation - - Inhaled Oxygen Concentration - - Weight 100.7 kg (222 lb) 02/17/2024 2:47 PM EDT Height - - Body Mass Index 39.33 11/26/2023 2:29 PM EDT documented in this encounter Progress Notes * Ulices Phillips PA-C - 02/17/2024 2:44 PM EDT Images from the original note were not included. History of Present Illness: Fani Merritt is a 79 year old female previously followed by Dr. Tran. Problem List: Rheumatic fever as a child, resultant rheumatic valvular disease Status post mitral valve commisurotomy in 1980 Status post MECHANICAL mitral valve [facility] in 2000[facility] Goal 2.5 to 3.5 ASCVD Status post PCI of the RCA in 1996 [place] post PCI of the LCX and RCA in 2019 Atrial fibrillation first observed circa 2000, chronic Prior use of amiodarone discontinue due to pulmonary toxicity Status post atrial defibrillator implantation on February 25, 2001 followed by Enrhythm pacemaker implantation on November 16, 2008 then a Medtronic dual chamber pacemaker that is programmed VVIR currently which was placed on May 23, 2016 Systolic and diastolic congestive heart failure Hypertension Dyslipidemia Type II diabetes mellitus CVA in 2015 Stage III chronic kidney disease GERD Obesity The patient is being evaluated by the undersigned for the first time today, scheduled as a routine follow-up appointment. Unfortunately, they thought that this appointment was at [facility] and arrived to this ([place]) office tardy. Overall, she has been feeling OK. No angina. Just occasional palpitations, nothing concerning. Stable exertional dyspnea. No resting dyspnea. No PND. No significant peripheral edema. No dizziness or syncope. No fevers or chills. Edentulous. No melenaor hematochezia. No hematuria or dysuria. Patient Active Problem List Diagnosis Type 2 diabetes mellitus with hemoglobin A1c goal of less than 8.0% ([facility]) Obesity, morbid (more than 100 lbs over ideal weight or BMI > 40) ([facility]) H/O mitral valve replacement with mechanical valve Dyslipidemia, goal LDL below 70 Coronary artery disease involving [place] coronary artery without angina pectoris Paroxysmal atrial fibrillation ([facility]) Ulnar neuropathy of right upper extremity Drug-induced constipation Chronic pain syndrome DDD (degenerative disc disease), lumbar Moderate episode of recurrent major depressive disorder ([facility]) Hypokalemia Gastro-esophageal reflux disease without esophagitis Type 2 diabetes mellitus with stage 3b chronic kidney disease, with long-term current use of insulin ([facility]) Hypertensive heart and kidney disease with chronic diastolic congestive heart failure and stage 3b chronic kidney disease ([facility]) History of SC (myocardial infarction) Chronic respiratory failure with hypoxia, on home oxygen therapy ([facility]) Subclinical hypothyroidism Age-related osteoporosis without current pathological fracture COPD, group B, by GOLD 2017 classification ([facility]) Past Medical History: Diagnosis Date Heart attack ([facility]) 2019 Rheumatic heart disease Past Surgical History: Procedure Laterality Date CARDIAC STENT PLACEMENT, ATHERECTOMY, 1 VESSEL 2019 3 stents placed 2019. Had 1 stent placed prior to that. Total 4 stents. MA APPENDECTOMY MA DELIVERY ONLY 5 c-sections MA CHOLECYSTECTOMY gallbladder 38[place] CORONARY ARTERY BYP W/VEIN & ARTERY GRAFT 1 VEIN MA REPLACEMENT OF MITRAL VALVE 2000 MA TOTAL ABDOMINAL HYSTERECT W/WO RMVL TUBE OVARY Family History Problem Relation Name Age of Onset Hypertension Mother 50's Diabetes Mother Hypertension Father 43 stroke Glaucoma Sister lucero Diabetes Sister Peg Cancer Sister 70 colon ca Diabetes Brother Ear Problems Son Ear Problems Son Ear Problems Son Heart Disorder Daughter a fib and pacer Social History Socioeconomic History Marital status: Spouse name: Not on file Number of children: Not on file Years of education: Not on file Highest education level: Not on file Occupational History Not on file Tobacco Use Smoking status: Former Current packs/day: 0.00 Average packs/day: 1 pack/day for 45.0 years (45.0 ttl pk-yrs) Types: Cigarettes Start date: 02/07/1958 Quit date: 09/08/2000 Years since quittin.4 Smokeless tobacco: Never Vaping Use Vaping status: Never Used Substance and Sexual Activity Alcohol use: Not Currently Drug use: Not Currently Sexual activity: Not on file Other Topics Concern Not on file Social History Narrative >10 yrs Kids 4 lost 3 at Social Determinants of Health Financial Resource Strain: Not on file Food Insecurity: No Food Insecurity (08/19/2023) Hunger Vital Sign Worried About Running Out of Food in the Last Year: Never true Ran Out of Food in the Last Year: Never true Transportation Needs: Not on file Physical Activity: Not on file Stress: Not on file Social Connections: Not on file Intimate Partner Violence: Not on file Housing Stability: Not on file Complete Review of Systems is as stated above, negative, or noncontributory. Review of patient's allergies indicates: Allergen Reactions Abhinav Inhibitors Cough Aspirin "delgado" her stomach, had a GI bleed in the past Codeine Morphine Oxycodone Nausea, vomiting, chest pain Ozempic (0.25 Or 0.5 Mg-Dose) [Semaglutide(0.25 Or 0.5mg-Dos)] Diarrhea Severe Current Outpatient Medications Medication Sig Dispense Refill Ferrous Sulfate 325 (65 Fe) MG Oral Tablet (Feosol) Take 1 Tablet by mouth daily with breakfast. (Patient not taking: Reported on 11/20/2023) 30 Tab 0 Multivitamin Adult Oral Tablet Take by mouth 1 Tablet daily . 30 Tab 0 Saline Nasal [place] 0.65 % Nasal Solution Administer 2 Sprays into each nostril in the morning and 2Sprays at noon and 2 Sprays in the evening and 2 Sprays before bedtime. for nasal dryness or congestion. 60 mL 0 Liberty 3 1200 MG Oral Capsule Take by [...] Puffs every 4 hours . For wheezing (Patient not taking: Reported on 11/20/2023) 3 Each 3 Senna 8.6 MG Oral Capsule Take 1 Tablet by mouth in the morning. As needed constipation . HYDROcodone-Acetaminophen 5-325 MG Oral Tablet Take 1 Tablet by mouth every 8 hours as needed (back). 30 Tablet 0 DIURETIC TITRATION PLAN If no improvement on day 3, contact heart failure managing provider. 1 Each0 Omeprazole 20 MG Oral Capsule Delayed Release (PriLOSEC) TAKE ONE CAPSULE BY MOUTH EVERY DAY 1 HOURBEFORE THE FIRST MEAL OF THE DAY 90 Capsule 1 dilTIAZem HCl ER Coated Beads 120 MG Oral Capsule Extended Release 24 Hour (Cardizem CD) TAKE ONE CAPSULE BY MOUTH EVERY DAY 90 Capsule 1 Ketoconazole 2 % External Cream Apply to [...] directed by anticoag clinic 135 Tablet 3 FLUoxetine HCl 20 MG [...] 42 units before bedtime 45 mL 1 Doxycycline Hyclate 100 MG Oral Capsule Take 1 Capsule by mouth in the morning and 1 Capsule beforebedtime. until gone.. 20 Capsule 0 Atorvastatin Calcium 40 MG Oral Tablet (Lipitor) [...] Ellipta 100-62.5-25 MCG/ACT Aerosol Powder Breath Activated (Wtgznqxisvj-Wosnphaswqsv-Sqberbbjzc) INHALE ONE PUFF BY MOUTH EVERY MORNING 180 Each 2 Furosemide 40 MG Oral Tablet (Lasix) TAKE TWO TABLETS BY MOUTH EVERY MORNING 180 Tablet 1 Current Facility-Administered Medications Medication Dose Route Frequency Provider Last Rate Last Admin Albuterol Sulfate (Proventil) (5 MG/ML) 0.5% *conc* inhalation solution 2.5 mg 2.5 mg Nebulizer Ariel Chase MD Albuterol Sulfate (Proventil) (2.5 MG/3ML) 0.083% inhalation solution 2.5 mg 2.5 mg Nebulizer PRN Arile Wing MD PHYSICAL EXAMINATION BP 112/74 | Pulse 76 | Resp 18 | Wt 100.7 kg (222 lb) | BMI 39.33 kg/m | BSA 2.12 m Examined in a wheelchair General: Alert and oriented x3. No acute distress. Pleasant. Comfortable. Cooperative. Skin: No rash Eyes: PER. Conjunctiva pink, sclera clear. HENT: Normocephalic. Atraumatic. Neck: No carotid bruits. No JVD. No HJR. Heart: Regular, paced. Greer mechanical valve sounds. Soft systolic ejection murmur. No diastolic murmur. Lungs: Clear to auscultation. No wheeze. No rales. No rhonchi Abdomen: +BS. Soft. Nontender. No masses. No organomegaly. Extremities: Minimal edema. Stasis changes. No clubbing. No cyanosis Pulses: radial=2/4, posterior tibial=1/4. Limited neurological examination: No focal deficit. Data: Last available pacemaker interrogation occurred in October 2023. Estimated remaining longevity: 31months. Mode: VVIR with lower rate set at 60 bpm. No ventricular high rate episodes. Paced 73.8% ofthe time. Component Latest Ref Rng 12/30/2023 BUN 6 - 20 mg/dL 29 (H) Creatinine 0.5 - 1.0 mg/dL 1.6 (H) Estimated Glomerular Filtration Rate >=60 mL/min 32 (L) Sodium 135 - 146 mmol/L 142 Potassium 3.5 - 5.1 mmol/L 5.1 Chloride 98 - 107 mmol/L 102 CO2 22 - 32 mmol/L 29 Anion Gap 7 - 15 mmol/L 11 Glucose 70 - 120 mg/dL 115 Albumin 3.8 - 5.0 g/dL 3.8 AST 10 - 35 U/L 21 Alkaline Phosphatase 35 - 130 U/L 95 Bilirubin, Total <=1.2 mg/dL 0.3 Calcium 8.4 - 10.2 mg/dL 9.4 Protein 6.0 - 8.3 g/dL 6.7 ALT 10 - 35 U/L 15 Triglycerides <=174 mg/dL 161 Cholesterol <200 mg/dL 162 HDL Cholesterol >49 mg/dL 29 (L) Non-HDL Cholesterol <=159 mg/dL 133 LDL Cholesterol <=129 mg/dL 101 Hemoglobin A1C 4.0 - 5.6 % 7.8 (H) Estimated Average Glucose <126 mg/dL 177 (H) TSH 0.27 - 4.20 uIU/mL 4.93 (H) ASSESSMENT: History of rheumatic fever , rheumatic valvular heart disease Status post mechanical mitral valve, [facility], INR 2.5 to 3.5 Coronary artery disease status post PCI last in March 2023 Chronic atrial fibrillation Status post Medtronic pacemaker programmed VVIR Chronic right heart failure, pulmonary hypertension Type 2 diabetes mellitus Stage 3 chronic kidney disease Dyslipidemia Edentulous Gastroesophageal reflux disease Subclinical hypothyroidism COPD Chronic pain syndrome Options of management discussed with patient and son who was present for the entire visit. Via shared decision-making, we will plan as follows: RECOMMENDATIONS/PLAN: Add ezetimibe 10 mg/ day Reassess lipids and LFTs in 3 to 4 months Refer for resting echocardiography Routine cardiology follow-up, or as needed ER with emergencies Ulices Phillips PA-C Department of Cardiology I spent a total of 20-29 minutes (exact time 28 mins) on the date of service in preparation, delivery, and documentation of the care provided to Fani Merritt excluding any time spent in the performance of separately billed services. This visit involved medical care services related to at least one serious condition or complex condition requiring ongoing care. This chart was completed in part utilizing [employer] Speech Voice Recognition Software. Grammatical errors, random word insertions, prounoun errors, and incomplete sentences are an occasional consequence of this system due to software limitations, ambient noise, and hardware issues. Any formal questions or concerns about the content, text, or information contained within the body of this dictation should be directly addressed to the provider for clarification. documented in this encounter Nursing Notes * Bhavik Avelar LPN - 02/17/2024 2:47 PM EDT Patient identified by full name and date of Chief Complaint Patient presents with Follow Up 3 month follow up. Doing about the same. Examination Room: 4 Name: Fani Merritt Date of : (1945). Reason for Visit: Follow up Interim Hospitalization(s): Denies Problems/Concerns: See chief complaint Chest Pain/SOB: See chief complaint [facility] Discussed: Yes [facility] is a way you can talk to your provider online through e-mail. Would you like to sign up? I can activate it for you? ALREADY ACTIVE Patient was instructed to not get up on the exam table until directed and assisted by their provider; patient is to remain seated in the chair/ wheelchair/ exam table for fall prevention and safety reasons. Patient is aware to have assistance to step down off exam table with personnel. Patient voiced full comprehension of instructions. documented in this encounter Plan of Treatment Upcoming Encounters Date Type Department Care Team (Late st Contact Info) Description 02/25/2024 2:20 PM EDT Office Visit Family Medicine [address] [place] [phone] Edith Osuna MD [address] [place] [address] [place] [phone] 03/01/2024 6:30 AM EDT Anticoagulation [facility], [facility] [address] [place] [address] [place] [address] [place] [address] [address] [facility] [place] [address] 03/09/2024 6:10 PM EDT Pharmacy Pharmacy, [address] [place] [address] [place] [address] 03/18/2024 1:00 PM EDT PulmDiagnostic Pulmonary Function Lab, [facility] [address] [place] [address] [place] [address] [place] [address] 03/18/2024 3:00 PM EDT Office Visit Pulmonary Medicine, [facility] [address] [place] [address] [facility] [address] [facility] [address] 04/09/2024 2:30 PM EDT [facility] [address] [place] [address] Nette Dior, RN [address] [facility] [place] [address] 07/26/2024 3:00 PM EST Office Visit Nephrology [address] [place] [address] Sonia Logan MD [address] [place] [address] 08/02/2024 2:30 PM EST Nurse Only Ancillary [address] [place] [address] [place], Nurse Annual [address] [place] [address] 08/18/2024 2:30 PM EST Cardiac Studies Cardiac Studies, [facility] [address] [place] [address] 09/07/2024 3:00 PM EST Office Visit Cardiology [address] [place] [address] Ulices Phillips PA-C [address] [place] [address] Scheduled Orders Name Type Priority Associated Diagnoses Orde r Schedule ECHO, COMPLETE (2D), TRANS-THORACIC Echocardiology Routine Cardiac pacemaker in situ S/P MVR (mitral valve replacement) Expected: 08/18/2024, Expires: 03/18/2026 Health Maintenance Due Date Last Done Comments *BISPHONATE OR OTHER ACCEPTABLE MEDICATION NEEDED FOR OSTEOPOROSIS (REFER TO SMARTSET #[id number]) 02/07/2023 Diabetic Foot Exam 05/31/2023 05/31/2022, 07/31/2021 CKD PHOS USE SMARTSET [id number] 10/04/2023 10/04/2022, 1 09/30/2020 CKD HGB USE SMARTSET [id number] 02/06/202402/05, 02/05/2023, 10/04/2022, Additional history exists GFR [...] D LEVEL ONCE IN A LIFETIME-USE SMARTSET# [id number] Completed 02/05/2023 Influenza Vaccine (FLU shot) Completed [...] as of this encounter Visit Diagnoses Diagnosis ASCVD (arteriosclerotic cardiovascular disease)- Primary Unspecified cardiovascular disease Cardiac pacemaker in situ Sinoatrial node dysfunction (HCC) Sinoatrial node dysfunction S/P MVR (mitral valve replacement) Heart valve replaced by other means Chronic atrial fibrillation (HCC) Atrial fibrillation Chronic diastolic CHF (congestive heart failure) (HCC) Chronic diastolic heart failure Hypertensive heart and kidney disease with chronic diastolic congestive heart failure and stage 3b chronic kidney disease (HCC) Dyslipidemia, goal LDL below 70 Other and unspecified hyperlipidemia documented in this encounter Care Teams Institute Director Relationship Specialty Start Date End Date Edith Osuna MD [address] [place] [address] [place] [phone] PCP - General Family Medicine 02/15/21 documented as of this encounter
--- OUTSIDE RECORDS SUMMARY | 2024-05-12 05:17 | External Medical Summary | Summary of Care ---
Author Name Unknown Organization [facility] Address [address] [place] [address] Phone [phone] Care Team Providers Care Warp Spinner Name Role Phone Edith Osuna MD Primary Care Prov ider Encounter Details Date Type Department Care Team (Late st Contact Info) Description 03/01/2024 Population Health External Data Unspecified Department Allergies [...] . 30 Tab 11/22/2020 Active Saline Nasal [place] 0.65 % Nasal SolutionIndications: for nasal dryness or congestion Administer 2 Sprays into each nostril in the morning and 2 Sprays at noon and 2 Sprays in the evening and 2 Sprays before bedtime. for nasal dryness or congestion. 60 mL 11/22/2020 Active [place] 3 1200 MG Oral CapsuleIndications:h eart health [...] A1c goal of less than 8.0% ([facility]) Use to test blood sugar 3-4 times a day dx E11.9 400 Each 3 03/13/2021 Active OneTouch Verio In Vitro Strip (Glucose Blood)Indications:Ty pe 2 diabetes mellitus with hemoglobin A1c goal of less than 8.0% ([facility]) Use to test blood sugar 3-4 times a day dx e11.9 400 Strip 3 03/13/2021 Active FreeStyle Robbin 2 Sensor Use as directed. Active Magnesium Oxide 400 (240 Mg) MG Oral TabletIndications:Ch ronic diastolic CHF (congestive heart failure) ([facility]) Take 1 Tab by mouth daily. 28 Tab 5 04/19/2021 Active oxygen IN GAS Use 2 L/min(Oxygen) as directed continuous. Active Insulin Syringes (Disposable) U-100 1 MLIndications:Type 2 diabetes mellitus with hemoglobin A1c goal of less than 8.0% ([facility]) Twice a day 200 Each 1 [...] MOUTH EVERY DAY 90 Capsule 1 09/25/2023 Active BD Pen Needle Stephanie U/F [...] A1c goal of less than 8.0% ([facility]) inject under the skin 42 units before bedtime 45 mL 1 11/26/2023 Active Atorvastatin Calcium 40 MG Oral Tablet (Lipitor) Take 1 Tablet by mouth in the morning. 90 Tablet 1 12/11/2023 Active Spironolactone 25 MG Oral Tablet (Aldactone)Indicatio ns:Chronic diastolic CHF (congestive heart failure) ([facility]) TAKE ONE TABLET BY MOUTH EVERY MORNING, AND ONE TABLET BEFORE BEDTIME 180 Tablet 1 12/25/2023 Active Metoprolol Succinate ER 50 MG Oral Tablet Extended Release 24 Hour (toPROL XL) TAKE ONE TABLET BY MOUTH EVERY DAY 90 Tablet 3 01/08/2024 Active Trelegy Ellipta 100-62.5-25 MCG/ACT Aerosol Powder Breath Activated (Fluticasone-Umeclid inium-Vilanterol)Ind ications:COPD, group B, by GOLD 2017 classification ([facility]) INHALE ONE PUFF BY MOUTH EVERY MORNING 180 Each 2 01/16/2024 Active Furosemide 40 MG Oral Tablet (Lasix)Indications:C hronic diastolic CHF (congestive heart failure) ([facility]) TAKE TWO TABLETS BY MOUTH EVERY [...] group B, by GOLD 2017 classification ([facility]),Chronic respiratory failure with hypoxia, on home oxygen therapy ([facility]) 2.5 mg NEBULIZER PRN 11/26/2023 11/25/2024 Acti ve Albuterol Sulfate (Proventil) (2.5 MG/3ML) 0.083% inhalation solution 2.5 mgIndications:COPD, group B, by GOLD 2017 classification ([facility]),Chronic respiratory failure with hypoxia, on home oxygen therapy ([facility]) 2.5 mg NEBULIZER PRN 11/26/2023 11/25/2024 [...] 3L continuously Subclinical hypothyroidism 10/04/2022 History of [place] (myocardial infarction) 05/31/2022 Type 2 diabetes mellitus [...] Coronary artery disease invo lving [place] coronary artery without angina pectoris 11/22/2020 Last [...] Classes - COLE Class D - Inhaled Hvwovmdjxbwalp-XSGI-NNRB Combination Inhaler (Trellegy) Remote Patient Monitoring Vendor: No Connected RPM Device(s): No current devices Self-Management plan Other/Additional Comments: rescue inhaler, contact [facility] Exacerbation plan Chest Xray Additional [...] No 08/19/2023 Does the household have a [place] [facility] source of income? (Household - for [...] AM EDT Anticoagulation Centralized Clinical Pharmacy Services, [address] [place] [address] [facility], [facility] 58 60 [facility] [place] [address] 03/09/2024 6:10 PM EDT Pharmacy Pharmacy, [address] [place] [address] [place] [address] 03/18/2024 1:00 PM EDT PulmDiagnostic Pulmonary Function Lab, [facility] [address] [facility] [place] [address] West, Pft [address] [facility] [place] [address] 03/18/2024 3:00 PM EDT Office Visit Pulmonary Medicine, [facility] [address] [facility] [place] [address] Ariel Wing MD [address] [place] [address] 04/09/2024 2:30 PM EDT [facility] [address] [facility] [place] [address] Nette Dior, OCTAVIO 132 [facility] [place] [address] 07/26/2024 3:00 PM EST Office Visit Nephrology [address] [place] [address] Sonia Logan MD 200 [facility] [place] [address] 08/02/2024 2:30 PM EST Nurse Only Ancillary [address] [place] [address] Vinicio, Nurse Annual Wellness [address] [place] [address] [place] [address] 08/18/2024 2:30 PM EST Cardiac Studies Cardiac Studies, [facility] [address] [place] [address] 08/27/2024 1:20 PM EST Office Visit Family Medicine [address] [place] [phone] Marnie Reyes CRNP [address] [place] [address] [place] [address] 09/07/2024 3:00 PM EST Office Visit Cardiology [address] [place] [address] Ulices Phillips PA-C [address] [place] [address] 03/02/2025 2:20 PM EDT Office Visit [address] [place] [phone] Edith Osuna MD [address] [place] [address] [place] [address] Health Maintenance Due Date Last Done Comments Diabetic Foot Exam 05/31/2023 05/31/2022, 07/31/2021 CKD PHOS USE SMARTSET 96063 10/04/2023 10/04/2022, 1 09/30/2020 CKD HGB USE SMARTSET 18784 02/06/202402/05, 02/05/2023, 10/04/2022, Additional history exists *BISPHONATE [...] D LEVEL ONCE IN A LIFETIME-USE SMARTSET# 21704 Completed 02/05/2023 Influenza Vaccine (FLU shot) Completed [...] filedocumented as of this encounter Care Teams Warp Spinner Relationship Specialty Start Date End Date Edith Osuna MD [address] [place] [address] [place] [phone] PCP - General Family Medicine 02/15/21 documented as of this encounter
--- OUTSIDE RECORDS SUMMARY | 2024-05-12 05:17 | External Medical Summary | Summary of Care ---
Author Name Unknown Organization [facility] Address [address] [place] [address] Phone [phone] Care Team Providers Care Exercise Science Instructor Name Role Phone Edith Osuna MD Primary Care Prov ider Reason for Visit * Reason Comments Medication Refill Encounter Details Date Type Department Care Team (Late st Contact Info) Description 02/21/2024 Refill Family Medicine [address] [phone] Adrianna Gotti, DO [address] [place] [address] Gastro-esophageal reflux disease without esophagitis Allergies Active Allergy Reactions Criticality Noted Date Comments Abhinav Inhibitors Cough 12/25/2021 Aspirin 02/15/2021 "delgado" her stomach, had a GI bleed in the past Codeine 11/22/2020 Morphine 11/22/2020 Oxycodone 11/22/2020 Nausea, vomiting, chest pain Semaglutide(0.25 Or 0.5mg-Dos) Diarrhea 10/04/2022 Severe documented as of this encounter (statuses as of 02/22/2024) Medications Medication Sig Dispensed Refills Start Date End Date Status Ferrous Sulfate 325 (65 Fe) MG Oral Tablet (Feosol)Indications :anemia Take 1 Tablet by mouth daily with breakfast. 30 Tab 11/22/2020 Active Multivitamin Adult Oral TabletIndications:s upplementation Take by mouth 1 Tablet daily . 30 Tab 11/22/2020 Active Saline Nasal [place] 0.65 % Nasal SolutionIndications :for nasal dryness or congestion Administer 2 Sprays into each nostril in the morning and 2 Sprays at noon and 2 Sprays in the evening and 2 Sprays before bedtime. for nasal dryness or congestion. 60 mL 11/22/2020 Active [place] 3 1200 MG Oral CapsuleIndications: heart health [...] (Aldactone)Indicati ons:Chronic diastolic CHF (congestive heart failure) ([facility] [...] 90 Capsule 1 02/22/2024 02/22/20 25 Active Omeprazole 20 MG Oral Capsule Delayed Release (PriLOSEC)Indicatio ns:Gastro-esophagea l reflux disease without esophagitis TAKE ONE CAPSULE BY MOUTH EVERY DAY 1 HOUR BEFORE THE FIRST MEAL OF THE DAY 90 Capsule 1 08/25/2023 02/21/20 24 Discontinu ed(Refill) dilTIAZem HCl ER Coated Beads 120 MG Oral Capsule Extended Release 24 Hour (Cardizem CD) TAKE ONE CAPSULE BY MOUTH EVERY DAY 90 Capsule 1 08/25/2023 02/21/20 24 Discontinu ed(Refill) Hospital, Clinic, or Other [...] as of this encounter (statuses as of 02/22/2024) Active Problems Problem Noted Date Diagnosed Date COPD, group B, by GOLD 2017 classification 09/15 Overview: Per COPD GOLD Classification Age-related osteoporosis wit hayde current pathological fracture 02/05/2023 Last Assessment & Plan: Currently on prolia injections Chronic respiratory failure with hypoxia, on home oxygen therapy 10/04/2022 Overview: Wearing 3L continuously Last Assessment & Plan: Wearing 3L continuously Subclinical hypothyroidism 10/04/2022 History of [place] (myocardial infarction) 05/31/2022 Type 2 diabetes mellitus [...] 68 11/22/2020 Coronary artery disease invo lving [place] coronary artery without angina pectoris 11/22/2020 Last [...] as of this encounter (statuses as of 02/22/2024) Resolved Problems Problem Noted Date Diagnosed Date Resolved Date COPD, severity to be determined 08/19/2022 09/18/2023 Overview: Per COPD GOLD Classification Last Assessment & Plan: "RED FLAG" COPD symptoms: Cough ("I get a different kind of cough than what I' have every day") Wheezing ("You can hear the whistling across the room") Medication Regimen All Classes - COLE Class D - Inhaled Brmefrvnlasrrz-AAKI-QSTC Combination Inhaler (Trellegy) Remote Patient Monitoring Vendor: No Connected RPM Device(s): No current devices Self-Management plan Other/Additional Comments: rescue inhaler, contact [facility] Exacerbation plan Chest Xray Additional [...] as of this encounter (statuses as of 02/22/2024) Immunizations Name Administration Dates Next Due COVID-19, [...] encounter Miscellaneous Notes * Telephone Encounter - Naveed Cervantes [facility] - 02/22/2024 9:10 AM EDT Signed Prescriptions: Disp Refills Omeprazole 20 MG Oral Capsule Delayed Rele*90 Cap*1 Sig: TAKE ONE CAPSULE BY MOUTH EVERY DAY 1 HOUR BEFORE THE FIRST MEAL OF THE DAY Authorizing Provider: EDITH OSUNA Ordering User: NAVEED CERVANTES dilTIAZem HCl ER Coated Beads 120 MG Oral *90 Cap*1 Sig: TAKE ONE CAPSULE BY MOUTH EVERY DAY Authorizing Provider : EDITH OSUNA Ordering User: NAVEED CERVANTES * Telephone Encounter - Transfer User, Rx Adt - 02/21/2024 12:10 AM EDTPending Prescriptions: Disp Refills Omeprazole 20 MG Oral Capsule Delayed Rele*90 Cap*1 Sig: TAKE ONE CAPSULE BY MOUTH EVERY DAY 1 HOUR BEFORE THE FIRST MEAL OF THE DAY dilTIAZem HCl ER Coated Beads 120 MG Oral *90 Cap*1 Sig: TAKE ONE CAPSULE BY MOUTH EVERY DAY documented in this encounter Plan of Treatment Upcoming Encounters Date Type Department Care Team (Late st Contact Info) Description 02/25/2024 2:20 PM EDT Office Visit Family Medicine [address] [place] [phone] Edith Osuna [address] [place] [address] 03/01/2024 6:30 AM EDT Anticoagulation Centralized Clinical Pharmacy Services, Luna Sears [address] [place] [address] [place] [address] [place] [address] 03/09/2024 6:10 PM EDT Pharmacy Pharmacy, [address] [place] [address] [place] [address] 03/18/2024 1:00 PM EDT PulmDiagnostic Pulmonary Function Lab, [facility] [address] [place], [address] 132 [facility] [place] [address] 03/18/2024 3:00 PM EDT Office Visit Pulmonary Medicine, [facility] 132 [place] [address] Ariel Wing MD [address] [facility] [place] [address] 04/09/2024 2:30 PM EDT [facility] [address] [place] [address] Nette Dior RN [address] [place] [address] 07/26/2024 3:00 PM EST Office Visit Nephrology [address] [place] [address] [place] [address] Sonia Logan MD 200 [facility] [place] [address] 08/02/2024 2:30 PM EST Nurse Only Ancillary [address] [place] [address] [place] [address] [place], Nurse Annual [address] [place] [address] 08/18/2024 2:30 PM EST Cardiac Studies Cardiac Studies, [facility] [address] 09/07/2024 3:00 PM EST Office Visit Cardiology [address] [place] [address] [place] [address] Ulices Phlilips PA-C [address] [place] [address] Health Maintenance Due Date Last Done Comments *BISPHONATE OR OTHER ACCEPTABLE MEDICATION NEEDED FOR OSTEOPOROSIS (REFER TO SMARTSET #1146) 02/07/2023 Diabetic Foot Exam 05/31/2023 05/31/2022, 07/31/2021 CKD PHOS USE SMARTSET 80156 10/04/2023 10/04/2022, 1 09/30/2020 CKD HGB USE SMARTSET 95932 02/06/202402/05, 02/05/2023, 10/04/2022, Additional history exists GFR [...] D LEVEL ONCE IN A LIFETIME-USE SMARTSET# 84490 Completed 02/05/2023 Influenza Vaccine (FLU shot) Completed [...] as of this encounter Visit Diagnoses Diagnosis Gastro-esophageal reflux disease without esophagitis Esophageal reflux documented in this encounter Care Teams Exercise Science Instructor Relationship Specialty Start Date End Date Edith Osuna MD [address] [place] [address] [place] [address] PCP - General Family Medicine 02/15/21 documented as of this encounter
--- OUTSIDE RECORDS SUMMARY | 2024-05-12 05:18 | External Medical Summary | Summary of Care ---
Author Name Unknown Organization [facility] Address [address] [place] [address] Phone [phone] Care Team Providers Care Motorcycle Sales Associate Name Role Phone Edith Osuna MD Primary Care Prov ider Encounter Details Date Type Department Care Team (Late st Contact Info) Description 01/27/2024 Population Health External Data Unspecified Department Allergies Active Allergy Reactions Criticality Noted Date Comments Abhinav Inhibitors Cough 12/25/2021 Aspirin 02/15/2021 "delgado" her stomach, had a GI bleed in the past Codeine 11/22/2020 Morphine 11/22/2020 Oxycodone 11/22/2020 Nausea, vomiting, chest pain Semaglutide(0.25 Or 0.5mg-Dos) Diarrhea 10/04/2022 Severe documented as of this encounter (statuses as of 01/28/2024) Medications Medication Sig Dispensed Refills Start Date End Date Status Ferrous Sulfate 325 (65 Fe) MG Oral Tablet (Feosol)Indications: anemia Take 1 Tablet by mouth daily with breakfast. 30 Tab 11/22/2020 Active Multivitamin Adult Oral TabletIndications:venegas pplementation Take by mouth 1 Tablet daily . 30 Tab 11/22/2020 Active Saline Nasal [place] 0.65 % Nasal SolutionIndications: for nasal dryness or congestion Administer 2 Sprays into each nostril in the morning and 2 Sprays at noon and 2 Sprays in the evening and 2 Sprays before bedtime. for nasal dryness or congestion. 60 mL 11/22/2020 Active [place] 3 1200 MG Oral CapsuleIndications:h eart health [...] hemoglobin A1c goal of less than 8.0% ([facility]) Use to test blood sugar 3-4 times a day dx E11.9 400 Each 3 03/13/2021 Active OneTouch Verio In Vitro Strip (Glucose Blood)Indications:Ty pe 2 diabetes mellitus with hemoglobin A1c goal of less than 8.0% ([facility]) Use to test blood sugar 3-4 times a day dx e11.9 400 Strip 3 03/13/2021 Active FreeStyle [place] 2 Sensor Use as directed. Active Magnesium Oxide 400 (240 Mg) MG Oral TabletIndications:Ch ronic diastolic CHF (congestive heart failure) ([facility]) Take 1 Tab by mouth daily. 28 Tab 5 04/19/2021 Active oxygen IN GAS Use 2 L/min(Oxygen) as directed continuous. Active Insulin Syringes (Disposable) U-100 1 MLIndications:Type 2 diabetes mellitus with hemoglobin A1c goal of less than 8.0% ([facility]) Twice a day 200 Each 1 [...] (Lasix)Indications:C hronic diastolic CHF (congestive heart failure) ([facility]) TAKE TWO TABLETS BY MOUTH EVERY [...] all other days or as directed by [facility] 135 Tablet 3 09/24/2023 Active FLUoxetine [...] hemoglobin A1c goal of less than 8.0% ([facility]) inject under the skin 42 units [...] (Aldactone)Indicatio ns:Chronic diastolic CHF (congestive heart failure) ([facility]) TAKE ONE TABLET BY MOUTH EVERY MORNING, AND ONE TABLET BEFORE BEDTIME 180 Tablet 1 12/25/2023 Active Metoprolol Succinate ER 50 MG Oral Tablet Extended Release 24 Hour (toPROL XL) TAKE ONE TABLET BY MOUTH EVERY DAY 90 Tablet 3 01/08/2024 Active Trelegy Ellipta 100-62.5-25 MCG/ACT Aerosol Powder Breath Activated (Fluticasone-Umeclid inium-Vilanterol)Ind ications:COPD, group B, by GOLD 2017 classification ([facility]) INHALE ONE PUFF BY MOUTH EVERY MORNING 180 Each 2 01/16/2024 5 Active Hospital, Clinic, or Other Facility Administered Medication Ordered Dose Route Frequency Start Date End Date Status Albuterol Sulfate (Proventil) (5 MG/ML) 0.5% *conc* inhalation solution 2.5 mgIndications:COPD, group B, by GOLD 2017 classification ([facility]),Chronic respiratory failure with hypoxia, on home oxygen therapy ([facility]) 2.5 mg NEBULIZER PRN 11/26/2023 11/25/2024 Acti ve Albuterol Sulfate (Proventil) (2.5 MG/3ML) 0.083% inhalation solution 2.5 mgIndications:COPD, group B, by GOLD 2017 classification ([facility]),Chronic respiratory failure with hypoxia, on home oxygen therapy ([facility]) 2.5 mg NEBULIZER PRN 11/26/2023 11/25/2024 Acti ve documented as of this encounter (statuses as of 01/28/2024) Active Problems Problem Noted Date Diagnosed Date COPD, group B, by GOLD 2017 classification 09/15 Overview: Per COPD GOLD Classification Age-related osteoporosis wit hout current pathological fracture 02/05/2023 Last Assessment & Plan: Currently on prolia injections Chronic respiratory failure with hypoxia, on home oxygen therapy 10/04/2022 Overview: Wearing 3L continuously Last Assessment & Plan: Wearing 3L continuously Subclinical hypothyroidism 10/04/2022 History of [place] (myocardial infarction) 05/31/2022 Type 2 diabetes mellitus [...] 68 11/22/2020 Coronary artery disease invo lving [place] coronary artery without angina pectoris 11/22/2020 Last [...] as of this encounter (statuses as of 01/28/2024) Resolved Problems Problem Noted Date Diagnosed Date Resolved Date COPD, severity to be determined 08/19/2022 09/18/2023 Overview: Per COPD GOLD Classification Last Assessment & Plan: "RED FLAG" COPD symptoms: Cough ("I get a different kind of cough than what I' have every day") Wheezing ("You can hear the whistling across the room") Medication Regimen All Classes - COLE Class D - Inhaled Cvulrioztdhffd-LXLU-TODH Combination Inhaler ([facility]) Remote Patient Monitoring Vendor: No Connected RPM Device(s): No current devices Self-Management plan Other/Additional Comments: rescue inhaler, contact [facility] Exacerbation plan Chest Xray Additional Comments: Recent [...] as of this encounter (statuses as of 01/28/2024) Immunizations Name Administration Dates Next Due COVID-19, [...] Care Team (Late st Contact Info) Description 02/04/2024 2:00 PM EDT Office Visit Pulmonary Medicine, [facility] [address] [place] [address] Ariel Wing MD [address] [place] [address] 02/06/2024 6:45 PM EDT Anticoagulation Pharmacy Call Center [address] [facility] [place] [address] Ccps, [place] [address] [address] [facility] [place] [address] 02/10/2024 6:10 PM EDT Pharmacy Pharmacy, [address] [place] [address] [place] [address] 02/11/2024 11:30 AM EDT [facility] [address] [place] [address] Nette Dior, OCTAVIO 132 [place] [address] 02/17/2024 2:30 PM EDT Office Visit Cardiology [address] [place] [address] Ulices Phillips PA-C [address] [place] [address] 02/19/2024 2:30 PM EDT PulmDiagnostic Pulmonary Function Lab, [facility] [address] [place] [address] West, [address] [place] [address] 02/25/2024 2:20 PM EDT Office Visit Family Medicine [address] [place] [phone] Edith Osuna MD [address] [place] [address] [place] [address] 07/26/2024 3:00 PM EST Office Visit Nephrology [address] [place] [address] Sonia Logan MD 200 [facility] [place] [address] 08/02/2024 2:30 PM EST Nurse Only Ancillary [address] [place] [address] Vinic[place], Nurse Annual Wellness [address] [place] [address] [place] [address] Health Maintenance Due Date Last Done Comments *BISPHONATE OR OTHER ACCEPTABLE MEDICATION NEEDED FOR OSTEOPOROSIS (REFER TO SMARTSET #1146) 02/07/2023 Diabetic Foot Exam 05/31/2023 05/31/2022, 07/31/2021 CKD PHOS USE SMARTSET 33261 10/04/2023 10/04/2022, 1 09/30/2020 CKD HGB USE SMARTSET 82347 02/06/202402/05, 02/05/2023, 10/04/2022, Additional history exists GFR 06/30/2024 12/30/2023, 01/08, 10/04/2022, Additional history exists HbA1c 06/30/2024 12/30/2023, 01/08, 05/31/2022, Additional history exists DXA Scan 07/03/2024 07/03/2022, 07/03/2022 Albumin/Creatinine Ratio 08/29/2024 023, 05/31/2022, 08/28/2021, Additional history exists O2 ASSESSMENT COMPLETED IN PAST YEAR FOR COPD 12/23/2024 12/24/2023 Diabetic Eye Exam 01/06/2025 01/07/2024, , 07/31/2021, Additional history exists DTaP,Tdap,and Td Vaccines (2 - Td or Tdap) 11/24/2031 11/23/2021 (Not indicated) Zoster Vaccines Discontinued 03/20/2021 Pneumococcal Vaccine: 65+ Years Completed 07/31/2021, 02/15/2021 COVID-19 Vaccine Discontinued 08/14/2021, 01/20/2021 VITAMIN D LEVEL ONCE IN A LIFETIME-USE SMARTSET# 30961 Completed 02/05/2023 Influenza Vaccine (FLU shot) Completed [...] filedocumented as of this encounter Care Teams Motorcycle Sales Associate Relationship Specialty Start Date End Date Edith Osuna MD [address] [place] [address] [place] [address] PCP - General Family Medicine 02/15/21 documented as of this encounter
--- OUTSIDE RECORDS SUMMARY | 2024-05-12 05:18 | External Medical Summary | Summary of Care ---
Author Name Unknown Organization [facility] Address [address] [place] [address] Phone [phone] Care Team Providers Care General Repair Mechanic Name Role Phone Edith Osuna MD Primary Care Prov ider Reason for Visit * Reason Comments Appointment Encounter Details Date Type Department Care Team (Late st Contact Info) Description 02/10/2024 6:10 PM EDT Pharmacy Pharmacy, [address] [place] [address] [place] [address] Type 2 diabetes mellitus with hemoglobin A1c goal of less than 8.0% ([facility])* Allergies Active Allergy Reactions Criticality Noted Date Comments Abhinav Inhibitors Cough 12/25/2021 Aspirin 02/15/2021 "delgado" her stomach, had a GI bleed in the past Codeine 11/22/2020 Morphine 11/22/2020 Oxycodone 11/22/2020 Nausea, vomiting, chest pain Semaglutide(0.25 Or 0.5mg-Dos) Diarrhea 10/04/2022 Severe documented as of this encounter (statuses as of 02/10/2024) Medications Medication Sig Dispensed Refills Start Date End Date Status Ferrous Sulfate 325 (65 Fe) MG Oral Tablet (Feosol)Indications: anemia Take 1 Tablet by mouth daily with breakfast. 30 Tab 11/22/2020 Active Multivitamin Adult Oral TabletIndications:venegas pplementation Take by mouth 1 Tablet daily . 30 Tab 11/22/2020 Active Saline Nasal [place] 0.65 % Nasal SolutionIndications: for nasal dryness or congestion Administer 2 Sprays into each nostril in the morning and 2 Sprays at noon and 2 Sprays in the evening and 2 Sprays before bedtime. for nasal dryness or congestion. 60 mL 11/22/2020 Active [place] 3 1200 MG Oral CapsuleIndications:[facility] e[facility] health [...] hemoglobin A1c goal of less than 8.0% ([facility]) inject under the skin 42 [...] (Aldactone)Indicatio ns:Chronic diastolic CHF (congestive heart failure) ([facility]) TAKE ONE TABLET BY MOUTH EVERY MORNING, AND ONE TABLET BEFORE BEDTIME 180 Tablet 1 12/25/2023 Active Metoprolol Succinate ER 50 MG Oral Tablet Extended Release 24 Hour (toPROL XL) TAKE ONE TABLET BY MOUTH EVERY DAY 90 Tablet 3 01/08/2024 Active Trelegy Ellipta 100-62.5-25 MCG/ACT Aerosol Powder Breath Activated (Fluticasone-Umeclid inium-Vilanterol)Ind ications:COPD, group B, by GOLD 2017 classification ([facility]) INHALE ONE PUFF BY MOUTH EVERY MORNING 180 Each 2 01/16/2024 5 Active Hospital, Clinic, or Other Facility Administered Medication Ordered Dose Route Frequency Start Date End Date Status Albuterol Sulfate (Proventil) (5 MG/ML) 0.5% *conc* inhalation solution 2.5 mgIndications:COPD, group B, by GOLD 2017 classification ([facility]),Chronic respiratory failure with hypoxia, on home oxygen therapy ([facility]) 2.5 mg NEBULIZER PRN 11/26/2023 11/25/2024 Acti ve Albuterol Sulfate (Proventil) (2.5 MG/3ML) 0.083% inhalation solution 2.5 mgIndications:COPD, group B, by GOLD 2017 classification ([facility]),Chronic respiratory failure with hypoxia, on home oxygen therapy ([facility]) 2.5 mg NEBULIZER PRN 11/26/2023 11/25/2024 Acti ve documented as of this encounter (statuses as of 02/10/2024) Active Problems Problem Noted Date Diagnosed Date COPD, group B, by GOLD 2017 classification 09/15 Overview: Per COPD GOLD Classification Age-related osteoporosis wit hout current pathological fracture 02/05/2023 Last Assessment & Plan: Currently on prolia injections Chronic respiratory failure with hypoxia, on home oxygen therapy 10/04/2022 Overview: Wearing 3L continuously Last Assessment & Plan: Wearing 3L continuously Subclinical hypothyroidism 10/04/2022 History of [place] (myocardial infarction) 05/31/2022 Type 2 diabetes mellitus [...] 68 11/22/2020 Coronary artery disease invo lving [place] coronary artery without angina pectoris 11/22/2020 Last [...] as of this encounter (statuses as of 02/10/2024) Resolved Problems Problem Noted Date Diagnosed Date Resolved Date COPD, severity to be determined 08/19/2022 09/18/2023 Overview: Per COPD GOLD Classification Last Assessment & Plan: "RED FLAG" COPD symptoms: Cough ("I get a different kind of cough than what I' have every day") Wheezing ("You can hear the whistling across the room") Medication Regimen All Classes - COLE Class D - Inhaled Cauydprdgeuxuj-[id number] Combination Inhaler (Trellegy) Remote Patient Monitoring Vendor: No Connected RPM Device(s): No current devices Self-Management plan Other/Additional Comments: rescue inhaler, contact [facility] Exacerbation plan Chest Xray Additional [...] as of this encounter (statuses as of 02/10/2024) Immunizations Name Administration Dates Next Due COVID-19, [...] as of this encounter Progress Notes * Dulce Cuevas PHARM Tech - 02/10/2024 9:48 AM EDT Patient Phone Numbers Left message on patients answering machine to schedule [facility] appointment for diabetes management. [facility] message sent --no Clinic will follow up again in 4 week(s). [Attempt # 2] Thank you, Dulce Cuevas Bundle Shaker [facility] 02/10/2024,9:48 AM documented in this encounter Plan of Treatment Upcoming Encounters Date Type Department Care Team (Late st Contact Info) Description 02/11/2024 4:00 PM EDT Home Visit [place] [facility] [place] [address] [place] [address] Nette Dior, [place] [address] [place] [address] 02/17/2024 2:30 PM EDT Office Visit Cardiology [address] [place] [address] Ulices Phillips PA-C [address] [place] [address] 02/25/2024 2:20 PM EDT Office Visit Family Medicine [address] [place] [phone] Edith Osuna MD [address] [place] [address] [place] [address] 03/01/2024 6:30 AM EDT Anticoagulation [facility], [place] Sears [address] [place] [address] [place] [address] [place] [address] 03/09/2024 6:10 PM EDT Pharmacy Pharmacy, [address] [place] [address] [place] [address] 03/18/2024 1:00 PM EDT PulmDiagnostic Pulmonary Function Lab, [facility] [address] [place] [address] [place], [address] [place] [address] 03/18/2024 3:00 PM EDT Office Visit Pulmonary Medicine, [facility] [address] [place] [address] Ariel Wing MD [address] [place] [address] 07/26/2024 3:00 PM EST Office Visit Nephrology [address] [place] [address] Sonia Logan MD [address] [facility] [place] [address] 08/02/2024 2:30 PM EST Nurse Only Ancillary [address] [place] [address] [place], Nurse [address] [place] [address] Health Maintenance Due Date Last Done Comments *BISPHONATE OR OTHER ACCEPTABLE MEDICATION NEEDED FOR OSTEOPOROSIS (REFER TO SMARTSET #1146) 02/07/2023 Diabetic Foot Exam 05/31/2023 05/31/2022, 07/31/2021 CKD PHOS USE SMARTSET 89150 10/04/2023 10/04/2022, 1 09/30/2020 CKD HGB USE SMARTSET 88111 02/06/202402/05, 02/05/2023, 10/04/2022, Additional history exists GFR 06/30/2024 12/30/2023, 01/08, 10/04/2022, Additional history exists HbA1c 06/30/2024 12/30/2023, 01/08, 05/31/2022, Additional history exists DXA Scan 07/03/2024 07/03/2022, 07/03/2022 Albumin/Creatinine Ratio 08/29/202408/29/2 023, 05/31/2022, 08/28/2021, Additional history exists O2 ASSESSMENT COMPLETED IN PAST YEAR FOR COPD 12/23/2024 12/24/2023 Diabetic Eye Exam 01/06/2025 01/07/2024, , 07/31/2021, Additional history exists DTaP,Tdap,and Td Vaccines (2 - Td or Tdap) 11/24/2031 11/23/2021 (Not indicated) Zoster Vaccines Discontinued 03/20/2021 Pneumococcal Vaccine: 65+ Years Completed 07/31/2021, 02/15/2021 COVID-19 Vaccine Discontinued 08/14/2021, 01/20/2021 VITAMIN D LEVEL ONCE IN A LIFETIME-USE SMARTSET# 00544 Completed 02/05/2023 Influenza Vaccine (FLU shot) Completed [...] Primary documented in this encounter Care Teams General Repair Mechanic Relationship Specialty Start Date End Date Edith Osuna MD [address] [place] [address] [place] [phone] PCP - General Family Medicine 02/15/21 documented as of this encounter
--- OUTSIDE RECORDS SUMMARY | 2024-05-12 05:18 | External Medical Summary | Summary of Care ---
Author Name Unknown Organization [facility] Address [address] [place] [place] [facility] [place] [address] Phone [phone] Care Team Providers Care Parole Or Probation Officer Name Role Phone Edith Osuna MD Primary Care Prov ider Reason for Visit * Reason Comments Dosage Adjustment Via Phone (anticoag Cl inic) Encounter Details Date Type Department Care Team (Latest Contact Info) Description 02/03/2024 6:30 AM EDT Anticoagulation Pharm[facility] Call [phone] [place] [address] [facility] [address] [facility] [place] [address] H/O mitral valve replacement with mechanical valve*; Paroxysmal atrial fibrillation (HCC) Allergies Active Allergy Reactions Criticality Noted Date Comments Abhinav Inhibitors Cough 12/25/2021 Aspirin 02/15/2021 "delgado" her stomach, had a GI bleed in the past Codeine 11/22/2020 Morphine 11/22/2020 Oxycodone 11/22/2020 Nausea, vomiting, chest pain Semaglutide(0.25 Or 0.5mg-Dos) Diarrhea 10/04/2022 Severe documented as of this encounter (statuses as of 02/03/2024) Medications Medication Sig Dispensed Refills Start Date End Date Status Ferrous Sulfate 325 (65 Fe) MG Oral Tablet (Feosol)Indications: anemia Take 1 Tablet by mouth daily with breakfast. 30 Tab 11/22/2020 Active Multivitamin Adult Oral TabletIndications:venegas pplementation Take by mouth 1 Tablet daily . 30 Tab 11/22/2020 Active Saline Nasal [place] 0.65 % Nasal SolutionIndications: for nasal dryness or congestion Administer 2 Sprays into each nostril in the morning and 2 Sprays at noon and 2 Sprays in the evening and 2 Sprays before bedtime. for nasal dryness or congestion. 60 mL 11/22/2020 Active [place] 3 1200 MG Oral CapsuleIndications:[facility] e[facility] health [...] A1c goal of less than 8.0% ([facility]) Use to test blood sugar 3-4 times a day dx E11.9 400 Each 3 03/13/2021 Active OneTouch Verio In Vitro Strip (Glucose Blood)Indications:Ty pe 2 diabetes mellitus with hemoglobin A1c goal of less than 8.0% ([facility]) Use to test blood sugar 3-4 times a day dx e11.9 400 Strip 3 03/13/2021 Active FreeStyle [place] 2 Sensor Use as directed. Active Magnesium Oxide 400 (240 Mg) MG Oral TabletIndications:Ch ronic diastolic CHF (congestive heart failure) ([facility]) Take 1 Tab by mouth daily. 28 Tab 5 04/19/2021 Active oxygen IN GAS Use 2 L/min(Oxygen) as directed continuous. Active Insulin Syringes (Disposable) U-100 1 MLIndications:Type 2 diabetes mellitus with hemoglobin A1c goal of less than 8.0% ([facility]) Twice a day 200 Each [...] A1c goal of less than 8.0% ([facility]) inject under the skin 42 [...] ns:Chronic diastolic CHF (congestive heart failure) ([facility]) TAKE ONE TABLET BY MOUTH EVERY MORNING, AND ONE TABLET BEFORE BEDTIME 180 Tablet 1 12/25/2023 Active Metoprolol Succinate ER 50 MG Oral Tablet Extended Release 24 Hour (toPROL XL) TAKE ONE TABLET BY MOUTH EVERY DAY 90 Tablet 3 01/08/2024 Active Trelegy Ellipta 100-62.5-25 MCG/ACT Aerosol Powder Breath Activated (Fluticasone-Umeclid inium-Vilanterol)Ind ications:COPD, group B, by GOLD 2017 classification ([facility]) INHALE ONE PUFF BY MOUTH EVERY MORNING 180 Each 2 01/16/2024 Active Hospital, Clinic, or Other Facility Administered Medication Ordered Dose Route Frequency Start Date End Date Status Albuterol Sulfate (Proventil) (5 MG/ML) 0.5% *conc* inhalation solution 2.5 mgIndications:COPD, group B, by GOLD 2017 classification ([facility]),Chronic respiratory failure with hypoxia, on home oxygen therapy ([facility]) 2.5 mg NEBULIZER PRN 11/26/2023 11/25/2024 Acti ve Albuterol Sulfate (Proventil) (2.5 MG/3ML) 0.083% inhalation solution 2.5 mgIndications:COPD, group B, by GOLD 2017 classification ([facility]),Chronic respiratory failure with hypoxia, on home oxygen therapy ([facility]) 2.5 mg NEBULIZER PRN 11/26/2023 11/25/2024 Acti ve documented as of this encounter (statuses as of 02/03/2024) Active Problems Problem Noted Date Diagnosed Date COPD, group B, by GOLD 2017 classification 09/15 Overview: Per COPD GOLD Classification Age-related osteoporosis wit hout current pathological fracture 02/05/2023 Last Assessment & Plan: Currently on prolia injections Chronic respiratory failure with hypoxia, on home oxygen therapy 10/04/2022 Overview: Wearing 3L continuously Last Assessment & Plan: Wearing 3L continuously Subclinical hypothyroidism 10/04/2022 History of [place] (myocardial infarction) 05/31/2022 Type 2 diabetes mellitus [...] Additional Comments Followed by [facility]TM Needs new orbbin device and sensors Hypertensive heart and kidne [...] 68 11/22/2020 Coronary artery disease invo lving [place] coronary artery without angina pectoris 11/22/2020 Last [...] as of this encounter (statuses as of 02/03/2024) Resolved Problems Problem Noted Date Diagnosed Date Resolved Date COPD, severity to be determined 08/19/2022 09/18/2023 Overview: Per COPD GOLD Classification Last Assessment & Plan: "RED FLAG" COPD symptoms: Cough ("I get a different kind of cough than what I' have every day") Wheezing ("You can hear the whistling across the room") Medication Regimen All Classes - COLE Class D - Inhaled Tqebcaodhcbycw-SUIK-QFWT Combination [facility]er ([facility]) Remote Patient Monitoring Vendor: No Connected RPM Device(s): No current devices Self-Management plan Other/Additional Comments: rescue inhaler, contact [facility] Exacerbation plan Chest Xray Additional [...] as of this encounter (statuses as of 02/03/2024) Immunizations Name Administration Dates Next Due COVID-19, [...] as of this encounter Progress Notes * Liliana Nieto CPhT - 02/03/2024 2:59 PM EDT Contacts Type Contact Phone/Fax 02/03/2024 11:28 AM EDT Phone (Outgoing) Kishan merritt (Emergency Contact) [phone] (M) Not Available - Pt is sleeping because she is sick. ER contact will have her call us back before 4. 02/03/2024 02:56 PM EDT Phone (Outgoing) Fani Merritt "Matt" (Self) [phone] (M) Spoke to Patient Subjective Patient Findings Negatives: Signs/symptoms of bleeding, Change in health, Change in activity, Upcoming invasive procedure, Missed doses, Extra doses, Change in medications, Change in diet/appetite, Bruising Advised patient to contact Anticoagulation Clinic if any unusual bruising or bleeding, recent illness, changes in medication, or questions/concerns. PT/INR results, Coumadin dose instructions, and next PT/INR date communicated as noted by Pharmacist: Yes Liliana Nieto CPhT 02/03/2024, 2:59 PM * Jes Higgins RP - 02/03/2024 9:27 AM EDT Images from the original note were not included. Coumadin Clinic (region specific) Objective Current Warfarin Dose As of 02/03/2024 Warfarin maintenance plan: 2.5 mg (2.5 mg x 1) every Mon, Wed, Fri; 5 mg (2.5 mg x 2) all other days INR Result As of 02/03/2024 INR goal: 2.5-3.5 INR used for dosin.3 (01/31/2024) Assessment & Plan Warfarin Plan As of 02/03/2024 Full warfarin instructions: 02/02: 7.5 mg; Otherwise 2.5 mg every Mon, Wed, Fri; 5 mg all other days Next INR check: 02/28/2024 Repeat PT/INR in 4 week(s) Weekly dose: not changed Additional Dosing Information: Description Home Document Improvement Specialist to contact patient with dose instructions as noted. Jes Higgins RPh 02/03/2024, 9:27 AM documented in this encounter Plan of Treatment Upcoming Encounters Date Type Department Care Team (Late st Contact Info) Description 02/04/2024 2:00 PM EDT Office Visit Pulmonary Medicine, [facility] [address] [facility] [place] [address] Ariel Wing MD [address] [facility] [place] [address] 02/10/2024 6:10 PM EDT Pharmacy Pharmacy, [address] [place] [address] [place] [address] 02/11/2024 11:30 AM EDT Home Visit [facility] [address] [place] [address] Nette Dior, RN [address] [place] [address] 02/17/2024 2:30 PM EDT Office Visit Cardiology [address] [place] [address] Ulices Phillips PA-C [address] [place] [address] 02/19/2024 2:30 PM EDT PulmDiagnostic Pulmonary Function Lab, [facility] [address] [facility] [place] [address] [place], [address] [facility] [place] [address] 02/25/2024 2:20 PM EDT Office Visit Family Medicine [address] [place] [phone] Edith Osuna MD [address] [place] [address] [place] [address] 03/01/2024 6:30 AM EDT Anticoagulation Pharmacy Call Center [place] [address] [facility] [place] [address] [facility] 58 60 [facility] [place] [address] 07/26/2024 3:00 PM EST Office Visit Nephrology [address] [place] [address] Sonia Logan MD [facility] [place] [address] 08/02/2024 2:30 PM EST Nurse Only Ancillary [address] [place] [address] Vinicio Nurse Annual Wellness [address] [place] [address] [place] [address] Health Maintenance Due Date Last Done Comments *BISPHONATE OR OTHER ACCEPTABLE MEDICATION NEEDED FOR OSTEOPOROSIS (REFER TO SMARTSET #1146) 02/07/2023 Diabetic Foot Exam 05/31/2023 05/31/2022, 07/31/2021 CKD PHOS USE SMARTSET 36791 10/04/2023 10/04/2022, 1 09/30/2020 CKD HGB USE SMARTSET 36865 02/06/202402/05, 02/05/2023, 10/04/2022, Additional history exists GFR 06/30/2024 12/30/2023, 01/08, 10/04/2022, Additional history exists HbA1c 06/30/2024 12/30/2023, 01/08, 05/31/2022, Additional history exists DXA Scan 07/03/2024 07/03/2022, 07/03/2022 Albumin/Creatinine Ratio 08/29/202408/29/ 023, 05/31/2022, 08/28/2021, Additional history exists O2 ASSESSMENT COMPLETED IN PAST YEAR FOR COPD 12/23/2024 12/24/2023 Diabetic Eye Exam 01/06/2025 01/07/2024, , 07/31/2021, Additional history exists DTaP,Tdap,and Td Vaccines (2 - Td or Tdap) 11/24/2031 11/23/2021 (Not indicated) Zoster Vaccines Discontinued 03/20/2021 Pneumococcal Vaccine: 65+ Years Completed 07/31/2021, 02/15/2021 COVID-19 Vaccine Discontinued 08/14/2021, 01/20/2021 VITAMIN D LEVEL ONCE IN A LIFETIME-USE SMARTSET# [id number] Completed 02/05/2023 Influenza Vaccine (FLU shot) Completed [...] Date/Time Associated Diagnosis Comments OUTSIDE LAB-PT/INR Routine 01/31/2024 documented in this encounter Results * OUTSIDE LAB-PT/INR (01/31/2024) INR-OUTSIDE LAB 2.3 History Per Patient LABORATORY documented in this encounter Visit Diagnoses Diagnosis H/O mitral valve replacement with mechanical valve- Primary Heart valve replaced by other means Paroxysmal atrial fibrillation (HCC) Atrial fibrillation documented in this encounter Care Teams Parole Or Probation Officer Relationship Specialty Start Date End Date Edith Osuna MD [address] [place] [address] [place] [phone] PCP - General Family Medicine 02/15/21 documented as of this encounter
--- OUTSIDE RECORDS SUMMARY | 2024-05-12 05:18 | External Medical Summary | Summary of Care ---
Author Name Unknown Organization [facility] Address [address] [place] [address] Phone [phone] Care Team Providers Care School Based Therapist Name Role Phone Edith Osuna MD Primary Care Prov ider Encounter Details Date Type Department Care Team (Late st Contact Info) Description 01/31/2024 Result Scan Unspecified Department <No scans attached> Allergies Active Allergy Reactions [...] . 30 Tab 11/22/2020 Active Saline Nasal [place] 0.65 % Nasal SolutionIndications: for nasal dryness or congestion Administer 2 Sprays into each nostril in the morning and 2 Sprays at noon and 2 Sprays in the evening and 2 Sprays before bedtime. for nasal dryness or congestion. 60 mL 11/22/2020 Active [place] 3 1200 MG Oral CapsuleIndications:h eart health [...] goal of less than 8.0% ([facility]) Use to test blood sugar 3-4 times a day dx E11.9 400 Each 3 03/13/2021 Active OneTouch Verio In Vitro Strip (Glucose Blood)Indications:Ty pe 2 diabetes mellitus with hemoglobin A1c goal of less than 8.0% ([facility]) Use to test blood sugar 3-4 [...] goal of less than 8.0% ([facility]) Twice a day 200 Each 1 [...] diastolic CHF (congestive heart failure) ([facility]) TAKE TWO TABLETS BY MOUTH EVERY [...] all other days or as directed by [facility] 135 Tablet 3 09/24/2023 Active [...] goal of less than 8.0% ([facility]) inject under the skin 42 units [...] diastolic CHF (congestive heart failure) ([facility]) TAKE ONE TABLET BY MOUTH EVERY MORNING, AND ONE TABLET BEFORE BEDTIME 180 Tablet 1 12/25/2023 Active Metoprolol Succinate ER 50 MG Oral Tablet Extended Release 24 Hour (toPROL XL) TAKE ONE TABLET BY MOUTH EVERY DAY 90 Tablet 3 01/08/2024 Active Trelegy Ellipta 100-62.5-25 MCG/ACT Aerosol Powder Breath Activated (Fluticasone-Umeclid inium-Vilanterol)Ind ications:COPD, group B, by GOLD 2017 classification ([facility]) INHALE ONE PUFF BY MOUTH EVERY MORNING 180 Each 2 01/16/2024 5 Active Hospital, Clinic, or Other Facility Administered Medication Ordered Dose Route Frequency Start Date End Date Status Albuterol Sulfate (Proventil) (5 MG/ML) 0.5% *conc* inhalation solution 2.5 mgIndications:COPD, group B, by GOLD 2017 classification ([facility]),Chronic respiratory failure with hypoxia, on home oxygen therapy ([facility]) 2.5 mg NEBULIZER PRN 11/26/2023 11/25/2024 Acti ve Albuterol Sulfate (Proventil) (2.5 MG/3ML) 0.083% inhalation solution 2.5 mgIndications:COPD, group B, by GOLD 2017 classification ([facility]),Chronic respiratory failure with hypoxia, on home oxygen therapy ([facility]) 2.5 mg NEBULIZER PRN 11/26/2023 11/25/2024 [...] 3L continuously Subclinical hypothyroidism 10/04/2022 History of [place] (myocardial infarction) 05/31/2022 Type 2 diabetes mellitus [...] 70 11/22/2020 Coronary artery disease invo lving [place] coronary artery without angina pectoris 11/22/2020 Last [...] Classes - COLE Class D - Inhaled Rgpprzzkapfhig-NXQN-TXOM Combination Inhaler ([facility]) Remote Patient Monitoring Vendor: No [...] 2:00 PM EDT Office Visit Pulmonary Medicine, [facility] [address] [place] [address] Ariel Wing MD [address] [facility] [place] [address] 02/10/2024 6:10 PM EDT Pharmacy Pharmacy, [address] [place] [address] [place] [address] 02/11/2024 11:30 AM EDT [facility] [address] [place] [address] Nette Dior, RN [address] [place] [address] 02/17/2024 2:30 PM EDT Office Visit Cardiology [address] [place] [address] Ulices Phillips PA-C [address] [place] [address] 02/19/2024 2:30 PM EDT PulmDiagnostic Pulmonary Function Lab, [facility] [address] [place] [address] [address], [address] [place] [address] 02/25/2024 2:20 PM EDT Office Visit Family Medicine [address] [place] [phone] Edith Osuna MD [address] [place] [address] [place] [address] 07/26/2024 3:00 PM EST Office Visit Nephrology [address] [place] [address] [facility] [address] 08/02/2024 2:30 PM EST Nurse Only Ancillary [address] [place] [address] [place], Nurse Annual Wellness [address] [place] [address] [place] [address] Health Maintenance Due Date Last Done Comments *BISPHONATE OR OTHER ACCEPTABLE MEDICATION NEEDED FOR OSTEOPOROSIS (REFER TO SMARTSET #1146) 02/07/2023 Diabetic Foot Exam 05/31/2023 05/31/2022, 07/31/2021 CKD PHOS USE SMARTSET 28102 10/04/2023 10/04/2022, 1 09/30/2020 CKD HGB USE SMARTSET 55470 02/06/202402/05, 02/05/2023, 10/04/2022, Additional history exists GFR [...] D LEVEL ONCE IN A LIFETIME-USE SMARTSET# 13558 Completed 02/05/2023 Influenza Vaccine (FLU shot) Completed [...] Date/Time Associated Diagnosis Comments OUTSIDE LAB RESULTS 01/31/2024 documented in this encounter Results * OUTSIDE LAB RESULTS (01/31/2024) 01/31/2024 No Physician Data Unknown LABORATORY documented in this encounter Care Teams School Based Therapist Relationship Specialty Start Date End Date Edith Osuna MD [address] [place] [address] [place] [phone] PCP - General Family Medicine 02/15/21 documented as of this encounter
--- OUTSIDE RECORDS SUMMARY | 2024-05-12 05:18 | External Medical Summary | Summary of Care ---
Author Name Unknown Organization [facility] Address [address] [place] [address] Phone [phone] Care Team Providers Care Beading Installer Name Role Phone Edith Osuna MD Primary Care Prov ider Reason for Visit * Reason Comments Medication Refill Encounter Details Date Type Department Care Team (Late st Contact Info) Description 01/28/2024 Refill Nephrology [address] [place] [address] Sonia Logan MD [address] [place] [phone] Allergies Active Allergy Reactions Criticality Noted Date [...] . 30 Tab 11/22/2020 Active Saline Nasal [place] 0.65 % Nasal SolutionIndications: for nasal dryness or congestion Administer 2 Sprays into each nostril in the morning and 2 Sprays at noon and 2 Sprays in the evening and 2 Sprays before bedtime. for nasal dryness or congestion. 60 mL 11/22/2020 Active [place] 3 1200 MG Oral CapsuleIndications:h eart health [...] Active BD Insulin Syringe U/F 31G X /" 0.5 ML (Insulin Syringe-Needle U-100) use twice [...] DAY 90 Capsule 1 09/25/2023 5 Active Potassium Chloride Carly ER 10 MEQ Oral Tablet Extended Release TAKE ONE TABLET BY MOUTH EVERY DAY IN THE MORNING 90 Tablet 10/31/2023 5 Active BD Pen Needle Stephanie U/F [...] 3L continuously Subclinical hypothyroidism 10/04/2022 History of [place] (myocardial infarction) 05/31/2022 Type 2 diabetes mellitus [...] 70 11/22/2020 Coronary artery disease invo lving [place] coronary artery without angina pectoris 11/22/2020 Last [...] Classes - COLE Class D - Inhaled Zdxluyqkmaqnco-VAQC-HWDI Combination Inhaler (Trellegy) Remote Patient Monitoring Vendor: No Connected RPM Device(s): No current devices Self-Management plan Other/Additional Comments: rescue inhaler, contact [facility] Exacerbation plan Chest Xray Additional Comments: [...] encounter Miscellaneous Notes * Telephone Encounter - Kavita Juan RN - 01/28/2024 9:02 AM EDT Needs follow up appointment with Nephro * Telephone Encounter - Kavita Juan RN - 01/28/2024 9:02 AM EDTRefused Prescriptions: Disp Refills Potassium Chloride Carly ER 10 MEQ Oral Tab*90 Tab*0 Sig: TAKE ONE TABLET BY MOUTH EVERY DAY IN THE MORNINGRefused By: Kath JUAN for Refusal: Refill Not Aaron ropriate documented in this encounter Plan of Treatment Upcoming Encounters Date Type Department Care Team (Late st Contact Info) Description 02/04/2024 2:00 PM EDT Office Visit Pulmonary Medicine, [facility] [address] [address] Ariel Wing MD [address] [place] [address] 02/06/2024 6:45 PM EDT Anticoagulation Pharmacy Call Center [address] [place] [address] [facility], [facility] 58 [address] [facility] [place] [address] 02/10/2024 6:10 PM EDT Pharmacy Pharmacy, [address] [place] [address] [place] [address] 02/11/2024 11:30 AM EDT Home Visit [facility] [address] [address] Nette Dior, RN [address] [place] [address] 02/17/2024 2:30 PM EDT Office Visit Cardiology [address] [place] [address] Ulices Phillips PAHusseinC [address] [place] [address] 02/19/2024 2:30 PM EDT PulmDiagnostic Pulmonary Function Lab, [facility] [address] [address] [address], [address] [place] [address] 02/25/2024 2:20 PM EDT Office Visit Family Medicine [address] [place] [phone] Edith Osuna MD [address] [place] [address] [place] [address] 07/26/2024 3:00 PM EST Office Visit Nephrology [address] [place] [address] S[facility] [address] [facility] [address] 08/02/2024 2:30 PM EST Nurse Only Ancillary [address] [place] [address] [place], Nurse Annual Wellness [address] [place] [address] [place] [address] Health Maintenance Due Date Last Done Comments *BISPHONATE OR OTHER ACCEPTABLE MEDICATION NEEDED FOR OSTEOPOROSIS (REFER TO SMARTSET #1146) 02/07/2023 Diabetic Foot Exam 05/31/2023 05/31/2022, 07/31/2021 CKD PHOS USE SMARTSET 28224 10/04/2023 10/04/2022, 1 09/30/2020 CKD HGB USE SMARTSET 59455 02/06/202402/05, 02/05/2023, 10/04/2022, Additional history exists GFR [...] D LEVEL ONCE IN A LIFETIME-USE SMARTSET# 60574 Completed 02/05/2023 Influenza Vaccine (FLU shot) Completed [...] filedocumented as of this encounter Care Teams Beading Installer Relationship Specialty Start Date End Date Edith Osuna MD [address] [place] [address] [place] [phone] PCP - General Family Medicine 02/15/21 documented as of this encounter
--- OUTSIDE RECORDS SUMMARY | 2024-05-12 05:18 | External Medical Summary | Summary of Care ---
Author Name Unknown Organization [facility] Address [address] [place] [address] Phone [phone] Care Team Providers Care All Round Logger Name Role Phone Edith Osuna MD Primary Care Prov ider Encounter Details Date Type Department Care Team (Latest Contact Info) Description 01/27/2024 Medication Management Roy[place]go [facility] [address] [place] [address] Dulce Soria, [facility] [address] [place], [place] [phone] Referred for management of medication therapy* Allergies Active Allergy Reactions Criticality Noted Date Comments Abhinav Inhibitors Cough 12/25/2021 Aspirin 02/15/2021 "delgado" her stomach, had a GI bleed in the past Codeine 11/22/2020 Morphine 11/22/2020 Oxycodone 11/22/2020 Nausea, vomiting, chest pain Semaglutide(0.25 Or 0.5mg-Dos) Diarrhea 10/04/2022 Severe documented as of this encounter (statuses as of 01/27/2024) Medications Medication Sig Dispensed Refills Start Date End Date Status Ferrous Sulfate 325 (65 Fe) MG Oral Tablet (Feosol)Indications: anemia Take 1 Tablet by mouth daily with breakfast. 30 Tab 11/22/2020 Active Multivitamin Adult Oral TabletIndications:venegas pplementation Take by mouth 1 Tablet daily . 30 Tab 11/22/2020 Active Saline Nasal [place] 0.65 % Nasal SolutionIndications: for nasal dryness or congestion Administer 2 Sprays into each nostril in the morning and 2 Sprays at noon and 2 Sprays in the evening and 2 Sprays before bedtime. for nasal dryness or congestion. 60 mL 11/22/2020 Active [place] 3 1200 MG Oral CapsuleIndications:h eart health [...] hronic diastolic CHF (congestive heart failure) ([facility]) TAKE TWO TABLETS BY MOUTH EVERY MORNING [...] A1c goal of less than 8.0% ([facility]) inject under the skin 42 units before [...] ns:Chronic diastolic CHF (congestive heart failure) ([facility]) TAKE ONE TABLET BY MOUTH EVERY MORNING, AND ONE TABLET BEFORE BEDTIME 180 Tablet 1 12/25/2023 Active Metoprolol Succinate ER 50 MG Oral Tablet Extended Release 24 Hour (toPROL XL) TAKE ONE TABLET BY MOUTH EVERY DAY 90 Tablet 01/08/2024 Active Trelegy Ellipta 100-62.5-25 MCG/ACT Aerosol Powder Breath Activated (Fluticasone-Umeclid inium-Vilanterol)Ind ications:COPD, group B, by GOLD 2017 classification ([facility]) INHALE ONE PUFF BY MOUTH EVERY MORNING 180 Each 2 01/16/2024 Active Hospital, Clinic, or Other Facility Administered Medication Ordered Dose Route Frequency Start Date End Date Status Albuterol Sulfate (Proventil) (5 MG/ML) 0.5% *conc* inhalation solution 2.5 mgIndications:COPD, group B, by GOLD 2017 classification ([facility]),Chronic respiratory failure with hypoxia, on home oxygen therapy ([facility]) 2.5 mg NEBULIZER PRN 11/26/2023 11/25/2024 Acti ve Albuterol Sulfate (Proventil) (2.5 MG/3ML) 0.083% inhalation solution 2.5 mgIndications:COPD, group B, by GOLD 2017 classification ([facility]),Chronic respiratory failure with hypoxia, on home oxygen therapy ([facility]) 2.5 mg NEBULIZER PRN 11/26/2023 11/25/2024 Acti ve documented as of this encounter (statuses as of 01/27/2024) Active Problems Problem Noted Date Diagnosed Date COPD, group B, by GOLD 2017 classification 09/15 Overview: Per COPD GOLD Classification Age-related osteoporosis wit hout current pathological fracture 02/05/2023 Last Assessment & Plan: Currently on prolia injections Chronic respiratory failure with hypoxia, on home oxygen therapy 10/04/2022 Overview: Wearing 3L continuously Last Assessment & Plan: Wearing 3L continuously Subclinical hypothyroidism 10/04/[address] (myocardial infarction) 05/31/2022 Type 2 diabetes mellitus [...] 70 11/22/2020 Coronary artery disease invo lving [place] coronary artery without angina pectoris 11/22/2020 Last [...] as of this encounter (statuses as of 01/27/2024) Resolved Problems Problem Noted Date Diagnosed Date Resolved Date COPD, severity to be determined 08/19/2022 09/18/2023 Overview: Per COPD GOLD Classification Last Assessment & Plan: "RED FLAG" COPD symptoms: Cough ("I get a different kind of cough than what I' have every day") Wheezing ("You can hear the whistling across the room") Medication Regimen All Classes - COLE Class D - Inhaled Pibdeliqhrxdqj-IFTT-QHMF Combination Inhaler (Trellegy) Remote Patient Monitoring Vendor: No Connected RPM Device(s): No current devices Self-Management plan Other/Additional Comments: rescue inhaler, contact [facility] Exacerbation plan Chest Xray Additional Comments: [...] as of this encounter (statuses as of 01/27/2024) Immunizations Name Administration Dates Next Due COVID-19, [...] of this encounter Progress Notes * Dulce Soria RPh - 01/27/2024 8:26 AM EDT Matt Merritt is a 79 year old female. TMR Interventions Incomplete Encounter MTPs No medication therapy recommendations to display Complete Encounter MTPs Referred for management of medication therapy Current Medication: Albuterol Sulfate 108 (90 Base) MCG/ACT Inhalation Aerosol Powder Breath Activated Rationale: Untreated condition - Needs additional medication therapy - Indication Recommendation: Start Medication Status: No Longer Relevant Note: Patient has an inhaler and neb solution - but rarely needs. Assessment & Plan Indication, effectiveness, safety and convenience of her medications were reviewed today. The patient's medical conditions were assessed, evaluated, and deemed meeting goals of drug therapy, with thefollowing exceptions. Additional Notes: Already had rescue treatment at home. Dulce Soria RPh 01/27/2024, 8:26 AM documented in this encounter Plan of Treatment Upcoming Encounters Date Type Department Care Team (Late st Contact Info) Description 02/04/2024 2:00 PM EDT Office Visit Pulmonary Medicine, [facility] [address] [place] [address] Ariel Wing MD [address] [place] [address] 02/06/2024 6:45 PM EDT Anticoagulation Pharmacy Call Center [address] [facility] [place] [address] [facility] [address] [facility] [place] [address] 02/10/2024 6:10 PM EDT Pharmacy Pharmacy, [address] [place] [address] [place] [address] 02/11/2024 11:30 AM EDT Home Visit [facility] [address] [facility] [address] [place] [address] Nette Dior, OCT[place] [address] [place] [address] 02/17/2024 2:30 PM EDT Office Visit Cardiology [address] [place] [address] Ulices Phillips PA-C [address] [place] [address] 02/19/2024 2:30 PM EDT PulmDiagnostic Pulmonary Function Lab, [facility] [address] [address] [address], [address] [place] [address] 02/25/2024 2:20 PM EDT Office Visit Family Medicine [address] [place] [phone] Edith Osuna MD [address] [place] [address] [place] [address] 07/26/2024 3:00 PM EST Office Visit Nephrology [address] [place] [address] Sonia Logan MD [address] [place], [place] [address] [address] 08/02/2024 2:30 PM EST Nurse Only Ancillary [address] [place] [address] [place], Nurse [address] [place] [address] Health Maintenance Due Date Last Done Comments *BISPHONATE OR OTHER ACCEPTABLE MEDICATION NEEDED FOR OSTEOPOROSIS (REFER TO SMARTSET #1146) 02/07/2023 Diabetic Foot Exam 05/31/2023 05/31/2022, 07/31/2021 CKD PHOS USE SMARTSET 66058 10/04/2023 10/04/2022, 1 09/30/2020 CKD HGB USE SMARTSET 61706 02/06/202402/05, 02/05/2023, 10/04/2022, Additional history exists GFR [...] D LEVEL ONCE IN A LIFETIME-USE SMARTSET# 86629 Completed 02/05/2023 Influenza Vaccine (FLU shot) Completed [...] as of this encounter Visit Diagnoses Diagnosis Referred for management of medication therapy- Primary Encounter for long-term (current) use of other medications documented in this encounter Care Teams All Round Logger Relationship Specialty Start Date End Date Edith Osuna MD [address] [place] [address] [place] [phone] PCP - General Family Medicine 02/15/21 documented as of this encounter
--- OUTSIDE RECORDS SUMMARY | 2024-05-12 05:19 | External Medical Summary ---
Author Name Unknown Address Unknown Organization K01:[facility] - [address] [place] [address] Laboratory Report Ordering Provider Test Date Status ARAVINDGRZEGORZ PRINCE 12/30/2023 14:52:28 Final Observation Date Value Abnormality Reference (Units ) Status T4, Free 12/30/2023 14:52:28 1.1 0.9-1.7 (n g/dL) Final Performing Location [facility] - [address] [place] [address]
--- OUTSIDE RECORDS SUMMARY | 2024-05-12 05:19 | External Medical Summary | Summary of Care ---
Author Name Unknown Organization [facility] Address [address] [place] [address] Phone [phone] Care Team Providers Care Access Rep Name Role Phone Edith Osuna MD Primary Care Prov ider Reason for Visit * Reason Comments Medication Refill Encounter Details Date Type Department Care Team (Late st Contact Info) Description 01/15/2024 Refill Family Medicine [address] [phone] Edith Osuna MD [address] [place], [place] [address] [address] COPD, group B, by GOLD 2017 classification ([facility]) Allergies Active Allergy Reactions Criticality Noted Date Comments Abhinav Inhibitors Cough 12/25/2021 Aspirin 02/15/2021 "delgado" her stomach, had a GI bleed in the past Codeine 11/22/2020 Morphine 11/22/2020 Oxycodone 11/22/2020 Nausea, vomiting, chest pain Semaglutide(0.25 Or 0.5mg-Dos) Diarrhea 10/04/2022 Severe documented as of this encounter (statuses as of 01/16/2024) Medications Medication Sig Dispensed Refills Start Date End Date Status Ferrous Sulfate 325 (65 Fe) MG Oral Tablet (Feosol)Indications :anemia Take 1 Tablet by mouth daily with breakfast. 30 Tab 0 11/22/2020 Active Multivitamin Adult Oral TabletIndications:s upplementation Take by mouth 1 Tablet daily . 30 Tab 0 11/22/2020 Active Saline Nasal [place] 0.65 % Nasal SolutionIndications :for nasal dryness or congestion Administer 2 Sprays into each nostril in the morning and 2 Sprays at noon and 2 Sprays in the evening and 2 Sprays before bedtime. for nasal dryness or congestion. 60 mL 0 11/22/2020 Active Sneads 3 1200 MG Oral CapsuleIndications: heart health Take by mouth 2 Capsules every night at bedtime . 60 Cap 0 11/22/2020 Active Acetaminophen 325 MG Oral Tablet (Tylenol)Indication s:as needed for pain/fever Take 2 Tablets by mouth every 4 hours as needed for Fever (Temp Greater than ) or Pain, Mild. 100 Tab 0 11/22/2020 Active OneTouch Delica Lancets 30GIndications:Type 2 diabetes mellitus with hemoglobin A1c goal of less than 8.0% ([facility]) Use to test blood sugar 3-4 times a day dx E11.9 400 Each 3 03/13/2021 Active OneTouch Verio In Vitro Strip (Glucose Blood)Indications:T ype 2 diabetes mellitus with hemoglobin A1c goal of less than 8.0% ([facility]) Use to test blood sugar 3-4 times a day dx e11.9 400 Strip 3 03/13/2021 Active FreeStyle Robbin 2 Sensor Use as directed. 0 Active Magnesium Oxide 400 (240 Mg) MG Oral TabletIndications:C hronic diastolic CHF (congestive heart failure) ([facility]) Take 1 Tab by mouth daily. 28 Tab 5 04/19/2021 Active oxygen IN GAS Use 2 L/min(Oxygen) as directed continuous. 0 Active Insulin Syringes (Disposable) U-100 1 MLIndications:Type 2 diabetes mellitus with hemoglobin A1c goal of less than 8.0% ([facility]) Twice a day 200 Each 1 11/23/2021 Active Ocuvite-Lutein Oral TabletIndications:s upplementation Take by mouth 1 Tablet daily . 0 Active Calcium Carbonate-Vitamin D 600-200 MG-UNIT Oral TabletIndications:s upplementation Take 1 Tablet by mouth in the morning. 0 Active Albuterol Sulfate 108 (90 Base) MCG/ACT Inhalation Aerosol Powder Breath ActivatedIndication s:wheezing Inhale by mouth 2 Puffs every 4 hours . For wheezing 3 Each 3 05/31/2022 Active Additional Information Patient not taking.Reported on 11/20/2023 Senna 8.6 MG Oral Capsule Take 1 Tablet by mouth in the morning. As needed constipation . 0 Active HYDROcodone-Acetami nophen 5-325 MG Oral TabletIndications:D DD (degenerative disc disease), lumbar Take 1 Tablet by mouth every 8 hours as needed (back). 30 Tablet 0 08/13/2023 Active Furosemide 40 MG Oral Tablet (Lasix)Indications: Chronic diastolic CHF (congestive heart failure) (HCC) TAKE TWO TABLETS BY MOUTH EVERY MORNING 180 Tablet 1 08/18/2023 Active DIURETIC TITRATION PLAN If no improvement on day 3, contact heart failure managing provider. 1 Each 0 08/21/2023 Active Omeprazole 20 MG Oral Capsule [...] 90 Capsule 1 09/25/2023 09/24/19 25 Active Potassium Chloride Carly ER 10 MEQ Oral Tablet Extended Release TAKE ONE TABLET BY MOUTH EVERY DAY IN THE MORNING 90 Tablet 0 10/31/2023 10/30/19 25 Active BD Pen Needle Stephanie U/F [...] Capsule before bedtime. until gone.. 20 Capsule 0 11/26/2023 Active Atorvastatin Calcium 40 MG Oral Tablet (Lipitor) Take 1 Tablet by mouth in the morning. 90 Tablet 1 12/11/2023 Active Spironolactone 25 MG Oral Tablet (Aldactone)Indicati ons:Chronic diastolic CHF (congestive heart failure) ([facility] ndications:COPD, group B, by GOLD 2017 classification ([facility]) INHALE ONE PUFF BY MOUTH EVERY MORNING 180 Each 2 01/16/2024 01/16/20 25 Active Trelegy Ellipta 100-62.5-25 MCG/ACT Aerosol Powder Breath Activated (Fluticasone-Umecli dinium-Vilanterol)I ndications:COPD, group B, by GOLD 2017 classification ([facility]) INHALE ONE PUFF BY MOUTH EVERY MORNING 60 Each 5 07/20/2023 01/15/20 24 Discontinu ed(Refill) Hospital, Clinic, or Other [...] as of this encounter (statuses as of 01/16/2024) Active Problems Problem Noted Date Diagnosed Date COPD, group B, by GOLD 2017 classification 09/15 Overview: Per COPD GOLD Classification Age-related osteoporosis wit hayde current pathological fracture 02/05/2023 Last Assessment & Plan: Currently on prolia injections Chronic respiratory failure with hypoxia, on home oxygen therapy 10/04/2022 Overview: Wearing 3L continuously Last Assessment & Plan: Wearing 3L continuously Subclinical hypothyroidism 10/04/2022 History of LA (myocardial infarction) 05/31/2022 Type 2 diabetes mellitus [...] 68 11/22/2020 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 11/22/2020 Last [...] as of this encounter (statuses as of 01/16/2024) Resolved Problems Problem Noted Date Diagnosed Date Resolved Date COPD, severity to be determined 08/19/2022 09/18/2023 Overview: Per COPD GOLD Classification Last Assessment & Plan: "RED FLAG" COPD symptoms: Cough ("I get a different kind of cough than what I' have every day") Wheezing ("You can hear the whistling across the room") Medication Regimen All Classes - COLE Class D - Inhaled Oifihgjxpljawc-NWXR-EDRD Combination Inhaler (Trellegy) Remote Patient Monitoring Vendor: No Connected RPM Device(s): No current devices Self-Management plan Other/Additional Comments: rescue inhaler, contact [facility] Exacerbation plan Chest Xray Additional Comments: [...] as of this encounter (statuses as of 01/16/2024) Immunizations Name Administration Dates Next Due COVID-19, [...] encounter Miscellaneous Notes * Telephone Encounter - Maru Velez, [facility] - 01/16/2024 6:45 AM EDTSigned Prescriptions: Disp Refills Trelegy Ellipta 100-62.5-25 MCG/ACT Aeroso*180 Ea*2 Sig: INHALEONE PUFF BY MOUTH EVERY MORNINGAuthorizing Provider: EDITH OSUNA User: MARU VELEZ documented in this encounter Plan of Treatment Upcoming Encounters Date Type Department Care Team (Late st Contact Info) Description 01/20/2024 6:30 AM EDT Anticoagulation Pharmacy Call Center [phone] [facility] [place] [address] [facility] [place] 58 60 [facility] [place] [address] 02/04/2024 2:00 PM EDT Office Visit Pulmonary Medicine, [facility] [address] [place] [address] Ariel Wing MD [address] [place] [address] 02/10/2024 6:10 PM EDT Pharmacy Pharmacy, [address] [place] [address] [place] [address] 02/11/2024 11:30 AM EDT Home Visit [facility] [address] [place] [address] Nette Dior, RN [address] [place] [address] 02/17/2024 2:30 PM EDT Office Visit Cardiology [address] [place] [address] Ulices Phillips PA-C [address] [place] [address] 02/19/2024 2:30 PM EDT PulmDiagnostic Pulmonary Function Lab, [facility] [address] [place] [address] [address], [address] [place] [address] 02/25/2024 2:20 PM EDT Office Visit Family Medicine [address] [place] [phone] Edith Osuna MD [address] [place] [address] [place] [address] 07/26/2024 3:00 PM EST Office Visit Nephrology [address] [place] [address] [facility] [address] [facility] [address] 08/02/2024 2:30 PM EST Nurse Only Ancillary [address] [place] [address] [place], Nurse Annual Wellness [address] [place] [address] [place] [address] Health Maintenance Due Date Last Done Comments *BISPHONATE OR OTHER ACCEPTABLE MEDICATION NEEDED FOR OSTEOPOROSIS (REFER TO SMARTSET #1146) 02/07/2023 Diabetic Foot Exam 05/31/2023 05/31/2022, 07/31/2021 CKD PHOS USE SMARTSET 79504 10/04/2023 10/04/2022, 1 09/30/2020 CKD HGB USE SMARTSET 79173 02/06/202402/05, 02/05/2023, 10/04/2022, Additional history exists GFR [...] D LEVEL ONCE IN A LIFETIME-USE SMARTSET# 20480 Completed 02/05/2023 Influenza Vaccine (FLU shot) Completed [...] group B, by GOLD 2017 classification (HCC) documented in this encounter Care Teams Access Rep Relationship Specialty Start Date End Date Edith Osuna MD [address] [place] [address] [place] [address] PCP - General Family Medicine 02/15/21 documented as of this encounter
--- OUTSIDE RECORDS SUMMARY | 2024-05-12 05:19 | External Medical Summary | Summary of Care ---
Author Name Unknown Organization [facility] Address [address] [facility] [place] [address] Phone [phone] Care Team Providers Care Trestle Builder Name Role Phone Edith Osuna MD Primary Care Prov ider Reason for Visit * Reason Comments Medication Refill Encounter Details Date Type Department Care Team (Late st Contact Info) Description 12/25/2023 Refill Ancillary [facility] [address] [place] [address] Kay Michel MD [address] [place] [address] [place] [address] Chronic diastolic CHF (congestive heart failure) (HCC) Allergies Active Allergy Reactions Criticality Noted Date Comments Abhinav Inhibitors Cough 12/25/2021 Aspirin 02/15/2021 "delgado" her stomach, had a GI bleed in the past Codeine 11/22/2020 Morphine 11/22/2020 Oxycodone 11/22/2020 Nausea, vomiting, chest pain Semaglutide(0.25 Or 0.5mg-Dos) Diarrhea 10/04/2022 Severe documented as of this encounter (statuses as of 12/25/2023) Medications Medication Sig Dispensed Refills Start Date End Date Status Ferrous Sulfate 325 (65 Fe) MG Oral Tablet (Feosol)Indications :anemia Take 1 Tablet by mouth daily with breakfast. 30 Tab 0 11/22/2020 Active Multivitamin Adult Oral TabletIndications:s upplementation Take by mouth 1 Tablet daily . 30 Tab 0 11/22/2020 Active Saline Nasal [place] 0.65 % Nasal SolutionIndications :for nasal dryness or congestion Administer 2 Sprays into each nostril in the morning and 2 Sprays at noon and 2 Sprays in the evening and 2 Sprays before bedtime. for nasal dryness or congestion. 60 mL 0 11/22/2020 Active Lynden 3 1200 MG Oral CapsuleIndications: heart health [...] hemoglobin A1c goal of less than 8.0% ([facility]) Use to test blood sugar 3-4 times a day dx E11.9 400 Each 3 03/13/2021 Active OneTouch Verio In Vitro Strip (Glucose Blood)Indications:T ype 2 diabetes mellitus with hemoglobin A1c goal of less than 8.0% ([facility]) Use to test blood sugar 3-4 times [...] morning. As needed constipation . 0 Active Metoprolol Succinate ER 50 MG Oral Tablet Extended Release 24 Hour (toPROL XL) TAKE ONE TABLET BY MOUTH EVERY DAY 90 Tablet 3 12/17/2022 01/16/20 24 Active Trelegy Ellipta 100-62.5-25 MCG/ACT Aerosol Powder Breath Activated (Fluticasone-Umecli dinium-Vilanterol)I ndications:COPD, group B, by GOLD 2017 classification ([facility]) INHALE ONE PUFF BY MOUTH EVERY MORNING 60 Each 5 07/20/2023 07/19/20 24 Active HYDROcodone-Acetami nophen 5-325 MG Oral TabletIndications:D DD (degenerative disc disease), lumbar Take 1 Tablet by mouth every 8 hours as needed (back). 30 Tablet 0 08/13/2023 Active Furosemide 40 MG Oral Tablet (Lasix)Indications: Chronic diastolic CHF (congestive heart failure) ([facility]) TAKE TWO TABLETS BY MOUTH EVERY MORNING [...] Active BD Insulin Syringe U/F 31G X 01/21" 0.5 ML (Insulin Syringe-Needle U-100) use twice [...] all other days or as directed by [facility] 135 Tablet 3 09/24/2023 Active FLUoxetine [...] hemoglobin A1c goal of less than 8.0% ([facility]) inject under the skin 42 units before [...] TABLET BY MOUTH EVERY MORNING, AND ONE BEFORE BEDTIME 180 Tablet 1 12/25/2023 12/25/19 25 Active Spironolactone 25 MG Oral Tablet (Aldactone)Indicati ons:Chronic diastolic CHF (congestive heart failure) (HCC) TAKE ONE TABLET BY MOUTH EVERY MORNING, AND ONE BEFORE BEDTIME 180 Tablet 1 06/30/2023 12/25/19 24 Discontinu ed(Refill) Hospital, Clinic, or Other Facility Administered Medication Ordered Dose Route Frequency Start Date End Date Status Albuterol Sulfate (Proventil) (5 MG/ML) 0.5% *conc* inhalation solution 2.5 mgIndications:COPD, group B, by GOLD 2017 classification ([facility]),Chronic respiratory failure with hypoxia, on home oxygen therapy ([facility]) 2.5 mg NEBULIZER PRN 11/26/2023 11/25/2024 Acti ve Albuterol Sulfate (Proventil) (2.5 MG/3ML) 0.083% inhalation solution 2.5 mgIndications:COPD, group B, by GOLD 2017 classification ([facility]),Chronic respiratory failure with hypoxia, on home oxygen therapy ([facility]) 2.5 mg NEBULIZER PRN 11/26/2023 11/25/2024 Acti ve documented as of this encounter (statuses as of 12/25/2023) Active Problems Problem Noted Date Diagnosed Date [...] 68 11/22/2020 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 11/22/2020 Last [...] as of this encounter (statuses as of 12/25/2023) Resolved Problems Problem Noted Date Diagnosed Date Resolved Date COPD, severity to be determined 08/19/2022 09/18/2023 Overview: Per COPD GOLD Classification Last Assessment & Plan: "RED FLAG" COPD symptoms: Cough ("I get a different kind of cough than what I' have every day") Wheezing ("You can hear the whistling across the room") Medication Regimen All Classes - COLE Class D - Inhaled Oquuscyuarzbhx-LQPK-VXCN Combination Inhaler (Trellegy) Remote Patient Monitoring Vendor: No Connected RPM Device(s): No current devices Self-Management plan Other/Additional Comments: rescue inhaler, contact [facility] Exacerbation plan Chest Xray Additional [...] as of this encounter (statuses as of 12/25/2023) Immunizations Name Administration Dates Next Due COVID-19, [...] encounter Miscellaneous Notes * Telephone Encounter - Kay Michel MD - 12/25/2023 7:54 AM EDTSigned Prescriptions: Disp Refills Spironolactone 25 MG Oral Tablet (Aldact[place]*180 Ta*1 Sig: TAKE ONE TABLET BY MOUTH EVERY MORNING, AND ONE BEFORE BEDTIMEAuthorizing Provider: KAY MICHEL------- documented in this encounter Plan of Treatment Upcoming Encounters Date Type Department Care Team (Late st Contact Info) Description 12/30/2023 6:30 AM EDT Anticoagulation Pharmacy Call Center [address] [place] [address] [facility], [facility] 58 [address] [facility] [place] [address] 12/30/2023 2:30 PM EDT Office Visit Pharmacy, [address] [place] [address] [place] [address] 01/07/2024 2:30 PM EDT PulmDiagnostic Pulmonary Function Lab, [facility] [address] [place] [address] [address], [address] [place] [address] 01/12/2024 2:00 PM EDT Office Visit Pulmonary Medicine, [facility] [address] [place] [address] Ariel Wing MD [address] [facility] [place] [address] 02/11/2024 11:30 AM EDT [facility] [address] [place] [address] Nette Dior, RN [address] [place] [address] 02/17/2024 2:30 PM EDT Office Visit Cardiology [address] [place] [address] Ulices Phillips PAHusseinC [address] [place] [address] 02/25/2024 2:20 PM EDT Office Visit Family Medicine [address] [place] [phone] Edith Osuna MD [address] [place] [address] [place] [address] 07/26/2024 3:00 PM EST Office Visit Nephrology [address] [place] [address] Sonia Logan MD [address] [facility] [place] [address] 08/02/2024 2:30 PM EST Nurse Only Ancillary [address] [place] [address] [place], Nurse Annual Wellness [address] [place] [address] [place] [address] Health Maintenance Due Date Last Done Comments *BISPHONATE OR OTHER ACCEPTABLE MEDICATION NEEDED FOR OSTEOPOROSIS (REFER TO SMARTSET #1146) 02/07/2023 Diabetic Foot Exam 05/31/2023 05/31/2022, 07/31/2021 GFR 08/07/2023 02/05/2023, 09/09, 05/31/2022, Additional history exists HbA1c 08/07/2023 02/05/2023, 05/10, 11/23/2021, Additional history exists CKD PHOS USE SMARTSET 52183 10/04/2023 10/04/2022, 1 09/30/2020 Diabetic Eye Exam 12/07/2023 12/06/2022, , 07/02/2019 CKD HGB USE SMARTSET 66033 02/06/202402/05, 02/05/2023, 10/04/2022, Additional history exists DXA Scan 07/03/2024 07/03/2022, 07/03/2022 Albumin/Creatinine Ratio 08/29/2024 023, 05/31/2022, 08/28/2021, Additional history exists O2 ASSESSMENT COMPLETED IN PAST YEAR FOR COPD 12/23/2024 12/24/2023 DTaP,Tdap,and Td Vaccines (2 - Td or Tdap) 11/24/2031 11/23/2021 (Not indicated) Zoster Vaccines Discontinued 03/20/2021 Pneumococcal Vaccine: 65+ Years Completed 07/31/2021, 02/15/2021 COVID-19 Vaccine Discontinued 08/14/2021, 01/20/2021 VITAMIN D LEVEL ONCE IN A LIFETIME-USE SMARTSET# 78512 Completed 02/05/2023 Influenza Vaccine (FLU shot) Completed [...] failure documented in this encounter Care Teams Trestle Builder Relationship Specialty Start Date End Date Edith Osuna MD [address] [place] [address] [place] [address] PCP - General Family Medicine 02/15/21 documented as of this encounter
--- OUTSIDE RECORDS SUMMARY | 2024-05-12 05:19 | External Medical Summary ---
Author Name Unknown Address Unknown Organization K01:[facility] [place] [address] [place] [address] Laboratory Report Ordering Provider Test Date Status GRZEGORZ NAZARIO 12/30/2023 14:52:28 Final Observation Date Value Abnormality Reference (Units ) Status TSH 12/30/2023 14:52:28 4.93 Above high normal 0. 27-4.20 (uIU/mL) Final Performing Location [facility] [place] [address] [place] [address]
--- OUTSIDE RECORDS SUMMARY | 2024-05-12 05:19 | External Medical Summary | Summary of Care ---
Author Name Unknown Organization [facility] Address [address] [place] [address] Phone [phone] Care Team Providers Care Account Resolution Analyst Name Role Phone Edith Osuna MD Primary Care Prov ider Reason for Visit * Reason Comments Medication Refill Encounter Details Date Type Department Care Team (Late st Contact Info) Description 01/08/2024 Refill Family Medicine [address] [phone] Edith Osuna MD [address] [place] [phone] Allergies Active Allergy Reactions Criticality Noted Date Comments Abhinav Inhibitors Cough 12/25/2021 Aspirin 02/15/2021 "delgado" her stomach, had a GI bleed in the past Codeine 11/22/2020 Morphine 11/22/2020 Oxycodone 11/22/2020 Nausea, vomiting, chest pain Semaglutide(0.25 Or 0.5mg-Dos) Diarrhea 10/04/2022 Severe documented as of this encounter (statuses as of 01/08/2024) Medications Medication Sig Dispensed Refills Start Date End Date Status Ferrous Sulfate 325 (65 Fe) MG Oral Tablet (Feosol)Indications :anemia Take 1 Tablet by mouth daily with breakfast. 30 Tab 0 11/22/2020 Active Multivitamin Adult Oral TabletIndications:s upplementation Take by mouth 1 Tablet daily . 30 Tab 0 11/22/2020 Active Saline Nasal Logan 0.65 % Nasal SolutionIndications :for nasal dryness or congestion Administer 2 Sprays into each nostril in the morning and 2 Sprays at noon and 2 Sprays in the evening and 2 Sprays before bedtime. for nasal dryness or congestion. 60 mL 0 11/22/2020 Active Ripley 3 1200 MG Oral CapsuleIndications: heart health [...] hemoglobin A1c goal of less than 8.0% ([facility]) Use to test blood sugar 3-4 times a day dx E11.9 400 Each 3 03/13/2021 Active OneTouch Verio In Vitro Strip (Glucose Blood)Indications:T ype 2 diabetes mellitus with hemoglobin A1c goal of less than 8.0% ([facility]) Use to test blood sugar 3-4 [...] morning. As needed constipation . 0 Active Trelegy Ellipta 100-62.5-25 MCG/ACT Aerosol Powder Breath Activated (Fluticasone-Umecli dinium-Vilanterol)I ndications:COPD, group B, by GOLD 2017 classification ([facility]) INHALE ONE PUFF BY MOUTH EVERY MORNING 60 Each 5 07/20/2023 07/19/20 24 Active HYDROcodone-Acetami nophen 5-325 MG Oral TabletIndications:D DD (degenerative disc disease), lumbar Take 1 Tablet by mouth every 8 hours as needed (back). 30 Tablet 0 08/13/2023 Active Furosemide 40 MG Oral Tablet (Lasix)Indications: Chronic diastolic CHF (congestive heart failure) ([facility]) TAKE TWO TABLETS BY MOUTH EVERY [...] :Moderate episode of recurrent major depressive disorder ([facility]) TAKE ONE CAPSULE BY MOUTH EVERY [...] hemoglobin A1c goal of less than 8.0% ([facility]) inject under the skin 42 units [...] (Aldactone)Indicati ons:Chronic diastolic CHF (congestive heart failure) ([facility]) TAKE ONE TABLET BY MOUTH EVERY MORNING, AND ONE TABLET BEFORE BEDTIME 180 Tablet 1 12/25/2023 12/25/19 25 Active Metoprolol Succinate ER 50 MG Oral Tablet Extended Release 24 Hour (toPROL XL) TAKE ONE TABLET BY MOUTH EVERY DAY 90 Tablet 3 01/08/2024 01/08/20 25 Active Metoprolol Succinate ER 50 MG Oral Tablet Extended Release 24 Hour (toPROL XL) TAKE ONE TABLET BY MOUTH EVERY DAY 90 Tablet 3 12/17/2022 01/08/20 24 Discontinu ed(Refill) Hospital, Clinic, or Other Facility Administered Medication Ordered Dose Route Frequency Start Date End Date Status Albuterol Sulfate (Proventil) (5 MG/ML) 0.5% *conc* inhalation solution 2.5 mgIndications:COPD, group B, by GOLD 2017 classification ([facility]),Chronic respiratory failure with hypoxia, on home oxygen therapy ([facility]) 2.5 mg NEBULIZER PRN 11/26/2023 11/25/2024 Acti ve Albuterol Sulfate (Proventil) (2.5 MG/3ML) 0.083% inhalation solution 2.5 mgIndications:COPD, group B, by GOLD 2017 classification ([facility]),Chronic respiratory failure with hypoxia, on home oxygen therapy ([facility]) 2.5 mg NEBULIZER PRN 11/26/2023 11/25/2024 Acti ve documented as of this encounter (statuses as of 01/08/2024) Active Problems Problem Noted Date Diagnosed Date [...] 68 11/22/2020 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 11/22/2020 Last [...] as of this encounter (statuses as of 01/08/2024) Resolved Problems Problem Noted Date Diagnosed Date Resolved Date COPD, severity to be determined 08/19/2022 09/18/2023 Overview: Per COPD GOLD Classification Last Assessment & Plan: "RED FLAG" COPD symptoms: Cough ("I get a different kind of cough than what I' have every day") Wheezing ("You can hear the whistling across the room") Medication Regimen All Classes - COLE Class D - Inhaled Nwyjgmloqstmec-LHWR-ILAG Combination Inhaler (Trellegy) Remote Patient Monitoring Vendor: No Connected RPM Device(s): No current devices Self-Management plan Other/Additional Comments: rescue inhaler, contact [facility] Exacerbation plan Chest Xray Additional Comments: [...] as of this encounter (statuses as of 01/08/2024) Immunizations Name Administration Dates Next Due COVID-19, [...] encounter Miscellaneous Notes * Telephone Encounter - Brittani Peterson RPh - 01/08/2024 5:40 PM EDTSigned Prescriptions: Disp Refills Metoprolol Succinate ER 50 MG Oral Tablet *90 Tab*3 Sig: TAKE ONE TABLET BY MOUTH EVERY DAYAuthorizing Provider: EDITH OSUNA User: DARIANA PETERSON documented in this encounter Plan of Treatment Upcoming Encounters Date Type Department Care Team (Late st Contact Info) Description 01/12/2024 2:00 PM EDT Office Visit Pulmonary Medicine, [facility] [address] [place] [address] Ariel Wing MD [address] [place] [address] 01/13/2024 6:30 AM EDT Anticoagulation Pharmacy Call Center [phone] [place] [address] [facility] 58 60 [facility] [place] [address] 01/13/2024 1:30 PM EDT Telemedicine Pharmacy, [address] [place] [address] [place] [address] 02/11/2024 11:30 AM EDT Home Visit [facility] [address] [place] [address] Nette Dior, RN [address] [place] [address] 02/17/2024 2:30 PM EDT Office Visit Cardiology [address] [place] [address] Ulices Phillips PAHusseinC [address] [place] [address] 02/19/2024 2:30 PM EDT PulmDiagnostic Pulmonary Function Lab, [facility] [address] [address] [place], [address] [address] [address] 02/25/2024 2:20 PM EDT Office Visit Family Medicine [address] [place] [phone] Edith Osuna MD [address] [place] [address] [place] [address] 07/26/2024 3:00 PM EST Office Visit Nephrology [address] [place] [address] Sonia Logan MD [address] [facility] [address] 08/02/2024 2:30 PM EST Nurse Only Ancillary [address] [place] [address] [place], Nurse Annual Wellness [address] [place] [address] [place] [address] Health Maintenance Due Date Last Done Comments *BISPHONATE OR OTHER ACCEPTABLE MEDICATION NEEDED FOR OSTEOPOROSIS (REFER TO SMARTSET #1146) 02/07/2023 Diabetic Foot Exam 05/31/2023 05/31/2022, 07/31/2021 CKD PHOS USE SMARTSET 24222 10/04/2023 10/04/2022, 1 09/30/2020 Diabetic Eye Exam 12/07/2023 12/06/2022, , 07/02/2019 CKD HGB USE SMARTSET 18625 02/06/202402/05, 02/05/2023, 10/04/2022, Additional history exists GFR [...] D LEVEL ONCE IN A LIFETIME-USE SMARTSET# 57117 Completed 02/05/2023 Influenza Vaccine (FLU shot) Completed [...] filedocumented as of this encounter Care Teams Account Resolution Analyst Relationship Specialty Start Date End Date Edith Osuna MD [address] [place] [address] [place] [phone] PCP - General Family Medicine 02/15/21 documented as of this encounter
--- OUTSIDE RECORDS SUMMARY | 2024-05-12 05:19 | External Medical Summary ---
Author Name Unknown Address Unknown Organization K01:LABORATORY [facility] - [address] [facility] [address] Laboratory Report Ordering Provider Test Date Status GRZEGORZ NAZARIO 12/30/2023 14:52:28 Final <10,000 colonies/ml mixed no rmal orestes Observation Date Value Abnormality Reference (Units ) Status Bacteria identified in Specimen by Culture 12/30/2023 14:52:28 [id number]^PROTEUS MIRABILIS Abnormal Final >100,000 colonies/mL Proteus mirabilis Performing Location LABORATORY [facility] - [address] [place] [address] Ordering Provider Test Date Status GRZEGORZ NAZARIO 12/30/2023 14:52:28 Final Observation Date Value Abnormality Reference (Units ) Status Ampicillin 12/30/2023 14:52:28 <=2 Susceptible Final Cefazolin 12/30/2023 14:52:28 <=4 Susceptible Final Cefepime susceptibility 12/30/2023 14:52:28 <=1 Susceptible Final Ceftriaxone suceptibility 12/30/2023 14:52:28 <=1 Susceptible Final Ciprofloxacin 12/30/2023 14:52:28 <=0.25 Susceptible Final Due to serious side effects, the FDA has advised against using Ciprofloxacin to treat uncomplicated UTIs and respiratory tract infections unless there are no alternative treatment options. Gentamicin susceptibility 12/30/2023 14:52:28 <=1 Susc eptible Final Piperacillin + Tazobactamsusceptibility 12/30/2023 14:52:28 <=4 Susceptible Final TMP-SMZ susceptibility 12/30/2023 14:52:28 <=20 Suscept ible Final Test: Culture, Urine, Quanti tative
Specimen Source: Urine, Clean Catch
Specimen Type: Urine
Specimen Date: 12/30/2023 2:52 PM
Result Date: 01/01/2024 8:01 AM
Result Status: Final result
Abnormal: Yes
Resulting Lab: LABORATORY [facility]
[address]
[place] [address]

CULTURE

>100,000 colonies/mL Proteus mirabilis (Abnormal)

<10,000 colonies/ml mixed normal orestes

SUSCEPTIBILITY

Proteus mirabilis
METHOD MICROBROTH
DILUTIONS

AMPICILLIN <=2 Susceptible
CEFAZOLIN <=4 Susceptible
CEFEPIME <=1 Susceptible
CEFTRIAXONE <=1 Susceptible
CIPROFLOXACIN <=0.25 Susceptible
GENTAMICIN <=1 Susceptible
PIPERACILLIN TAZOBACTAM <=4 Susceptible
TRIMETH/SULFAMETHOXAZOLE <=20 Susceptible

null Performing Location LABORATORY [facility] - [address] [place] [address]
--- OUTSIDE RECORDS SUMMARY | 2024-05-12 05:19 | External Medical Summary | Summary of Care ---
Author Name Unknown Organization [facility] Address [address] [place] [address] Phone [phone] Care Team Providers Care Plodding Machine Operator Name Role Phone Edith Osuna MD Primary Care Prov ider Reason for Visit * Reason Comments Outpatient Testing Encounter Details Date Type Department Care Team (Late st Contact Info) Description 12/30/2023 3:00 PM EDT Laboratory Laboratory [address] [place] [phone] [facility] [address] [place] [address] [employer] Other*[id number]; Type 2 diabetes mellitus with hemoglobin A1c goal of less than 8.0% ([facility]); Dyslipidemia, goal LDL below 70; Dysuria Allergies Active Allergy Reactions Criticality Noted Date Comments Abhinav Inhibitors Cough 12/25/2021 Aspirin 02/15/2021 "delgado" her stomach, had a GI bleed in the past Codeine 11/22/2020 Morphine 11/22/2020 Oxycodone 11/22/2020 Nausea, vomiting, chest pain Semaglutide(0.25 Or 0.5mg-Dos) Diarrhea 10/04/2022 Severe documented as of this encounter (statuses as of 12/30/2023) Medications Medication Sig Dispensed Refills Start Date End Date Status Ferrous Sulfate 325 (65 Fe) MG Oral Tablet (Feosol)Indications: anemia Take 1 Tablet by mouth daily with breakfast. 30 Tab 0 11/22/2020 Active Multivitamin Adult Oral TabletIndications:venegas pplementation Take by mouth 1 Tablet daily . 30 Tab 0 11/22/2020 Active Saline Nasal [place] 0.65 % Nasal SolutionIndications: for nasal dryness or congestion Administer 2 Sprays into each nostril in the morning and 2 Sprays at noon and 2 Sprays in the evening and 2 Sprays before bedtime. for nasal dryness or congestion. 60 mL 0 11/22/2020 Active [place] 3 1200 MG Oral CapsuleIndications: [facility] [...] TabletIndications:Ch ronic diastolic CHF (congestive heart failure) ([facility] [...] MOUTH EVERY DAY 90 Tablet 3 12/17/2022 4 Active Trelegy Ellipta 100-62.5-25 MCG/ACT Aerosol Powder Breath Activated (Fluticasone-Umeclid inium-Vilanterol)Ind ications:COPD, group B, by GOLD 2017 classification ([facility]) INHALE ONE PUFF BY MOUTH EVERY MORNING 60 Each 5 07/20/2023 4 Active HYDROcodone-Acetamin ophen 5-325 MG Oral TabletIndications:DD [...] Active BD Insulin Syringe U/F 31G X /16" 0.5 ML (Insulin Syringe-Needle U-100) use twice [...] antico clinic 135 Tablet 3 09/24/2023 Active FLUoxetine HCl 20 MG Oral Capsule (PROzac)Indications: Moderate episode of recurrent major depressive disorder ([facility]) TAKE ONE CAPSULE BY MOUTH EVERY DAY 90 Capsule 1 09/25/2023 5 Active Potassium Chloride Carly ER 10 MEQ Oral Tablet Extended Release TAKE ONE TABLET BY MOUTH EVERY DAY IN THE MORNING 90 Tablet 0 10/31/2023 5 Active BD Pen Needle Stephanie [...] BEDTIME 180 Tablet 1 12/25/2023 5 Active Hospital, Clinic, or Other Facility [...] as of this encounter (statuses as of 12/30/2023) Active Problems Problem Noted Date Diagnosed Date [...] 68 11/22/2020 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 11/22/2020 Last [...] as of this encounter (statuses as of 12/30/2023) Resolved Problems Problem Noted Date Diagnosed Date Resolved Date COPD, severity to be determined 08/19/2022 09/18/2023 Overview: Per COPD GOLD Classification Last Assessment & Plan: "RED FLAG" COPD symptoms: Cough ("I get a different kind of cough than what I' have every day") Wheezing ("You can hear the whistling across the room") Medication Regimen All Classes - COLE Class D - Inhaled Ljwgcctbddhxrb-URSJ-ILHQ Combination Inhaler (Trellegy) Remote Patient Monitoring Vendor: No Connected RPM Device(s): No current devices Self-Management plan Other/Additional Comments: rescue inhaler, contact [facility] Exacerbation plan Chest Xray Additional [...] as of this encounter (statuses as of 12/30/2023) Immunizations Name Administration Dates Next Due COVID-19, [...] Care Team (Late st Contact Info) Description 01/06/2024 6:30 AM EDT Anticoagulation Pharmacy Call Center [phone] [place] [address] [facility] 58 60 [facility] [place] [address] 01/07/2024 2:30 PM EDT PulmDiagnostic Pulmonary Function Lab, [facility] [address] [address] [place], [address] [address] 01/12/2024 2:00 PM EDT Office Visit Pulmonary Medicine, [facility] [address] [place] [address] Ariel Wing MD [address] [facility] [place] [address] 01/13/2024 1:30 PM EDT Telemedicine Pharmacy, [address] [place] [address] [place] [address] 02/11/2024 11:30 AM EDT [facility] Visit [facility], [facility] [address] [place] [address] Nette Dior, OCTAVIO [address] [place] [address] 02/17/2024 2:30 PM EDT Office Visit Cardiology [address] [place] [address] Ulices Phillips PA-C [facility] [address] 02/25/2024 2:20 PM EDT Office Visit Family Medicine [address] [place] [phone] Edith Osuna MD [address] [place] [address] [place] [address] 07/26/2024 3:00 PM EST Office Visit Nephrology [address] [place] [address] Sonia Logan MD 200 [facility] [place] [address] 08/02/2024 2:30 PM EST Nurse Only Ancillary [address] [place] [address] [place], Nurse [address] [place] [address] Pending Results Name Type Priority Associated Diagnoses Date /Time MYCODE SUBSEQUENT ADULT Lab Routine [employer] Other*[id number] 12/30/2023 2:52 PM EDT COMPREHENSIVE METABOLIC PANEL Lab Routine Type 2 diabetes mellitus with hemoglobin A1c goal of less than 8.0% ([facility]) 12/30/2023 2:52 PM EDT LIPID PANEL WITH DIRECT LDL IF TG IS HIGH Lab Routine Dyslipidemia, goal LDL below 70 12/30/2023 2:52 PM EDT HEMOGLOBIN A1C Lab Routine Type 2 diabetes mellitus with hemoglobin A1c goal of less than 8.0% ([facility]) 12/30/2023 2:52 PM EDT TSH WITH FREE T4 IF INDICATED Lab Routine Type 2 diabetes mellitus with hemoglobin A1c goal of less than 8.0% ([facility]) 12/30/2023 2:52 PM EDT URINALYSIS, REFLEX TO CULTURE (NOT FOR NEUTROPENIC PATIENTS) Lab Routine Dysuria 12/30/2023 2:52 PM EDT MYCODE SST1 Lab Routine [employer] Other*[id number] 12/30/2023 2:52 PM EDT MYCODE SST2 Lab Routine [employer] Other*[id number] 12/30/2023 2:52 PM EDT URINALYSIS, REFLEX TO CULTURE (CUP ONLY) Lab Routine Dysuria 12/30/2023 2:52 PM EDT URINALYSIS, REFLEX TO CULTURE Lab Routine Dysuria 12/30/2023 2:52 PM EDT Health Maintenance Due Date Last Done Comments *BISPHONATE OR OTHER ACCEPTABLE MEDICATION NEEDED FOR OSTEOPOROSIS (REFER TO SMARTSET #1146) 02/07/2023 Diabetic Foot Exam 05/31/2023 05/31/2022, 07/31/2021 GFR 08/07/2023 02/05/2023, 09/09, 05/31/2022, Additional history exists HbA1c 08/07/2023 02/05/2023, 05/10, 11/23/2021, Additional history exists CKD PHOS USE SMARTSET 84051 10/04/2023 10/04/2022, 1 09/30/2020 Diabetic Eye Exam 12/07/2023 12/06/2022, , 07/02/2019 CKD HGB USE SMARTSET 71520 02/06/202402/05, 02/05/2023, 10/04/2022, Additional history exists DXA [...] D LEVEL ONCE IN A LIFETIME-USE SMARTSET# 94788 Completed 02/05/2023 Influenza Vaccine (FLU shot) Completed [...] as of this encounter Visit Diagnoses Diagnosis [employer] Other*[id number] Type 2 diabetes mellitus with hemoglobin A1c goal of less than 8.0% (HCC) Dyslipidemia, goal LDL below 70 Other and unspecified hyperlipidemia Dysuria documented in this encounter Care Teams Plodding Machine Operator Relationship Specialty Start Date End Date Edith Osuna MD [address] [place] [address] [place] [phone] PCP - General Family Medicine 02/15/21 documented as of this encounter
--- OUTSIDE RECORDS SUMMARY | 2024-05-12 05:19 | External Medical Summary ---
Author Name Unknown Address Unknown Organization K01:[facility]ORY [facility] - [address] [facility] [address] Laboratory Report Ordering Provider Test Date Status GRZEGORZ NAZARIO 12/30/2023 14:52:28 Final Observation Date Value Abnormality Reference (Units ) Status Color of Urine by Auto 12/30/2023 14:52:28 Yellow Colorless, Light Yellow, Yellow, Dark Yellow Final Clarity, Urine 12/30/2023 14:52:28 Slightly Cloudy Abnormal Clear Final Glucose [Mass/volume] in Urine by Automated test strip 12/30/2023 14:52:28 Negative Negative (mg/dL) Final Bilirubin.total [Presence] in Urine by Automated test strip 12/30/2023 14:52:28 Negative Negative Final Ketones [Mass/volume] in Urine by Automated test strip 12/30/2023 14:52:28 Negative Negative (mg/dL) Final Specific gravity, Urine 12/30/2023 14:52:28 1.012 1.003-1.030 Final Hemoglobin [Presence] in Urine by Automated test strip 12/30/2023 14:52:28 Trace Abnormal Negative Final pH, Urine 12/30/2023 14:52:28 7.5 5.0-7.5 (Units) Final Protein [Mass/volume] in Urine by Automated test strip 12/30/2023 14:52:28 30 Abnormal Negative (mg/dL) Final Urobilinogen [Mass/volume] in Urine by Automated test strip 12/30/2023 14:52:28 Normal Normal (mg/dL) Final Nitrite [Presence] in Urine by Automated test strip 12/30/2023 14:52:28 Positive Abnormal Negative Final Leukocyte esterase [Presence] in Urine by Automated test strip 12/30/2023 14:52:28 Large Abnormal Negative Final RBC, Urine 12/30/2023 14:52:28 10-19 Abnormal 0-2 (/HPF) Final WBC, Urine 12/30/2023 14:52:28 50+ Abnormal 0-2 (/HPF) Final Bacteria [#/area] in Urine sediment by Microscopy high power field 12/30/2023 14:52:28 151-200 Abnormal 0-25 (/HPF) Final Leukocyte clumps [#/area] in Urine sediment by Microscopy high power field 12/30/2023 14:52:28 Present Abnormal None (/HPF) Final CULTURE, URINE - [facility] 12/30/2023 14:52:28 Final Quantitative urine culture t o be performed Performing Location [facility]ORY [facility] - [address] [facility] [address]
--- OUTSIDE RECORDS SUMMARY | 2024-05-12 05:19 | External Medical Summary ---
Author Name Unknown Address Unknown Organization K01:LABORATORY [facility] - [address] [facility] [id number] Laboratory Report Ordering Provider Test Date Status ARAVINDGRZEGORZ BALBUENA 12/30/2023 14:52:28 Final Observation Date Value Abnormality Reference (Units ) Status HbA1C 12/30/2023 14:52:28 7.8 Above high normal 4. 0-5.6 (%) Final The use of HbA1c to monitor glycemic status is based on normal hemoglobin and HbA composition. This test should not be used in patients with abnormal hemoglobin that affects the half life of the red blood cell or the in vivo glycation rates. Glucose, estimated average 12/30/2023 14:52:28 177 Above high normal <126 (mg/dL) Juan gomes Performing Location LABORATORY [facility] - [address] [facility] [id number]
--- OUTSIDE RECORDS SUMMARY | 2024-05-12 05:19 | External Medical Summary ---
Author Name Unknown Address Unknown Organization K01:LABORATORY [facility] [place] [facility] - [address] [place] [address] Laboratory Report Ordering Provider Test Date Status IVONNE BUNDY 12/30/2023 14:52:28 Final Observation Date Value Abnormality Reference (Units ) Status MYCODE SPECIMEN-SST 12/30/2023 14:52:28 Freezing of extracted DNA, whole blood and/or serum. Final Performing Location LABORATORY [facility] - [address] [place] [address]
--- OUTSIDE RECORDS SUMMARY | 2024-05-12 05:19 | External Medical Summary | Summary of Care ---
Author Name Unknown Organization [facility] [address] [facility] [address] Phone [phone] Care Team Providers Care Shop Service Technician Name Role Phone Edith Osuna MD Primary Care Prov ider Reason for Visit * Reason Comments [facility]: Maintenance Encounter Details Date Type Department Care Team (Late st Contact Info) Description 12/24/2023 4:00 PM EDT [facility] Visit [facility], [facility] [address] [facility] [place] [address] Nette Dior, RN 132 [facility] [place] [address] Allergies Active Allergy Reactions Criticality Noted Date [...] 30 Tab 0 11/22/2020 Active Saline Nasal Cartwright 0.65 % Nasal SolutionIndications: for nasal dryness or congestion Administer 2 Sprays into each nostril in the morning and 2 Sprays at noon and 2 Sprays in the evening and 2 Sprays before bedtime. for nasal dryness or congestion. 60 mL 0 11/22/2020 Active Boncarbo 3 1200 MG Oral CapsuleIndications: [facility] [...] ications:COPD, group B, by GOLD 2017 classification ([facility]) INHALE ONE PUFF BY MOUTH EVERY MORNING 60 Each 5 07/20/2023 4 Active HYDROcodone-Acetamin ophen 5-325 MG Oral TabletIndications:DD D (degenerative disc disease), lumbar Take 1 Tablet by mouth every 8 hours as needed (back). 30 Tablet 0 08/13/2023 Active Furosemide 40 MG Oral Tablet (Lasix)Indications:C hronic diastolic CHF (congestive heart failure) ([facility]) TAKE TWO TABLETS BY MOUTH EVERY MORNING [...] MG Oral Tablet (Coumadin)Indication s:Paroxysmal atrial fibrillation ([facility]),H/O mitral valve replacement with mechanical valve Take 2.5mg (1 tablet) on Mon,Wed and Fri and 2 tablets (5mg) all other days or as directed [facility] 135 Tablet 3 09/24/2023 Active FLUoxetine HCl 20 MG Oral Capsule (PROzac)Indications: Moderate episode of recurrent major depressive disorder ([facility]) TAKE ONE CAPSULE BY MOUTH EVERY DAY [...] hemoglobin A1c goal of less than 8.0% ([facility]) inject under the skin 42 units before bedtime 45 mL 1 11/26/2023 Active Doxycycline Hyclate 100 MG Oral Capsule Take 1 Capsule by mouth in the morning and 1 Capsule before bedtime. until gone.. 20 Capsule 0 11/26/2023 Active Atorvastatin Calcium 40 MG Oral Tablet (Lipitor) Take 1 Tablet by mouth in the morning. 90 Tablet 1 12/11/2023 Active Hospital, Clinic, or Other Facility Administered Medication Ordered Dose Route Frequency Start Date End Date Status Albuterol Sulfate (Proventil) (5 MG/ML) 0.5% *conc* inhalation solution 2.5 mgIndications:COPD, group B, by GOLD 2017 classification ([facility]),Chronic respiratory failure with hypoxia, on home oxygen therapy ([facility]) 2.5 mg NEBULIZER PRN 11/26/2023 11/25/2024 Acti ve Albuterol Sulfate (Proventil) (2.5 MG/3ML) 0.083% inhalation solution 2.5 mgIndications:COPD, group B, by GOLD 2017 classification ([facility]),Chronic respiratory failure with hypoxia, on home oxygen therapy ([facility]) 2.5 mg NEBULIZER PRN 11/26/2023 11/25/2024 Acti [...] 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 11/22/2020 Last [...] Classes - COLE Class D - Inhaled [id number] Combination Inhaler (Trellegy) Remote Patient Monitoring Vendor: No Connected RPM Device(s): No current devices Self-Management plan Other/Additional Comments: rescue inhaler, contact [facility] Exacerbation plan Chest Xray Additional Comments: Recent [...] Sign Reading Time Taken Comments Blood Pressure 112/64 12/24/2023 2:45 PM EDT Pulse 60 12/24/2023 2:45 PM EDT Temperature 36.4 C (97.5 F) 12/24/2023 2:45 PM ED T Respiratory Rate 18 12/24/2023 2:45 PM EDT Oxygen Saturation 98% 12/24/2023 2:45 PM EDT Inhaled Oxygen Concentration - - Weight - - Height - - Body Mass Index - - documented in this encounter Progress Notes * Nette Dior RN - 12/24/2023 2:41 PM EDT [facility] Visit Date: 12/24/2023 Time: 2:42 PM Name: Fani Merritt : 1945 Current Concerns: Patient seen for follow up- Afib, CHF, CKD, COPD, Respiratory failure, DM2 Reports doing well. Son and DIL present for visit. AAA in home for visit today- attempting to get help in the home. Potentially may attend adult daycare in [place]. VS wnl Lungs clear bilaterally Sob with exertion No LE edema noted Voiding without difficulty- h/o frequent UTI's Bowels wnl Appetite good Taking fluids well Chronic pain. Problems/Symptoms: Review of Systems Constitutional: Negative. HENT: Negative. Eyes: Negative. Respiratory: Positive for shortness of breath. Cardiovascular: Negative. Gastrointestinal: Negative. Endocrine: Negative. Genitourinary: Negative. Musculoskeletal: Negative. Skin: Negative. Allergic/Immunologic: Negative. Neurological: Negative. Hematological: Negative. Psychiatric/Behavioral: Negative. Physical Exam: BP 112/64 (BP Site: Right Arm, BP Position: Sitting, BP Cuff Size: Regular) | Pulse 60 | Temp 36.4 C (97.5 F) (Tympanic) | Resp 18 | SpO2 98% Pain 0 Physical Exam Constitutional: Appearance: Normal [...] and Affect: Mood normal. Behavior: Behavior normal. [facility]-10 Completed this Visit: No. No falls since last visit Treatment/Plan: Oxygen dependence continous Continue medications as prescribed Keep all upcoming MD appointments Fall precautions Fluids encouraged Monitor for s/sx's of UTI Blood sugars QID- OCTAVIO CM follow up in 8 weeks. Home Interventions Provided: Reinforced current Plan of Care, including self-management and medication regimen Patient Needs to Remember: Call [facility] with any medical concerns/ red flags Referrals Needed: N/a Follow Up: Is there cellular connectivity/connectivity in the home? Yes Does the patient have internet in the home? Yes Patient encouraged to call the intake phone number for all urgent but not emergent issues. Scheduled to follow up with patient in 8 weeks. Nette Vera RN 12/24/2023 2:42 PM documented in this encounter Plan of Treatment Upcoming Encounters Date Type Department Care Team (Late st Contact Info) Description 12/30/2023 6:30 AM EDT Anticoagulation Pharmacy Call Center [address] [facility] [place] [address] [facility], [facility] 58 60 [facility] [place] [address] 12/30/2023 2:30 PM EDT Office Visit Pharmacy, [address] [place] [phone] [place] [address] 01/07/2024 2:30 PM EDT PulmDiagnostic Pulmonary Function Lab, [facility] [address] [place] [address] [place], [address] [place] [address] 01/12/2024 2:00 PM EDT Office Visit Pulmonary Medicine, [facility] [address] [place] [address] Ariel Wing MD [address] [place] [address] 02/11/2024 11:30 AM EDT Home Visit [facility] [address] [place] [address] Nette Dior RN [address] [place] [address] 02/17/2024 2:30 PM EDT Office Visit Cardiology [address] [place] [address] Ulices Phillips PA-C [address] [place] [address] 02/25/2024 2:20 PM EDT Office Visit Family Medicine [address] [place] [phone] Edith Osuna MD [address] [place] [address] [place] [address] 07/26/2024 3:00 PM EST Office Visit Nephrology [address] [place] [address] Sonia Logan MD [address] [place], [place] [address] [address] 08/02/2024 2:30 PM EST Nurse Only Ancillary [address] [place] [address] [place], Nurse [address] [place] [address] Health Maintenance Due Date Last Done Comments *BISPHONATE OR OTHER ACCEPTABLE MEDICATION NEEDED FOR OSTEOPOROSIS (REFER TO SMARTSET #1146) 02/07/2023 Diabetic Foot Exam 05/31/2023 05/31/2022, 07/31/2021 GFR 08/07/2023 02/05/2023, 09/09, 05/31/2022, Additional history exists HbA1c 08/07/2023 02/05/2023, 05/10, 11/23/2021, Additional history exists CKD PHOS USE SMARTSET 06445 10/04/2023 10/04/2022, 1 09/30/2020 Diabetic Eye Exam 12/07/2023 12/06/2022, , 07/02/2019 CKD HGB USE SMARTSET 50360 02/06/202402/05, 02/05/2023, 10/04/2022, Additional history exists DXA [...] D LEVEL ONCE IN A LIFETIME-USE SMARTSET# 54547 Completed 02/05/2023 Influenza Vaccine (FLU shot) Completed [...] filedocumented as of this encounter Care Teams Shop Service Technician Relationship Specialty Start Date End Date Edith Osuna MD [address] [place] [address] [place] [phone] PCP - General Family Medicine 02/15/21 documented as of this encounter
--- OUTSIDE RECORDS SUMMARY | 2024-05-12 05:19 | External Medical Summary | Summary of Care ---
Author Name Unknown Organization [facility] Address [address] [place] [address] Phone [phone] Care Team Providers Care Plan Rep Name Role Phone Edith Osuna MD Primary Care Prov ider Encounter Details Date Type Department Care Team (Late st Contact Info) Description 01/09/2024 Orders Only Family Medicine [address] [phone] Edith Osuna MD [address] [place] [address] [place] [address] Allergies Active Allergy Reactions Criticality Noted Date Comments Abhinav Inhibitors Cough 12/25/2021 Aspirin 02/15/2021 "delgado" her stomach, had a GI bleed in the past Codeine 11/22/2020 Morphine 11/22/2020 Oxycodone 11/22/2020 Nausea, vomiting, chest pain Semaglutide(0.25 Or 0.5mg-Dos) Diarrhea 10/04/2022 Severe documented as of this encounter (statuses as of 01/09/2024) Medications Medication Sig Dispensed Refills Start Date End Date Status Ferrous Sulfate 325 (65 Fe) MG Oral Tablet (Feosol)Indications: anemia Take 1 Tablet by mouth daily with breakfast. 30 Tab 0 11/22/2020 Active Multivitamin Adult Oral TabletIndications:venegas pplementation Take by mouth 1 Tablet daily . 30 Tab 0 11/22/2020 Active Saline Nasal Keaton 0.65 % Nasal SolutionIndications: for nasal dryness or congestion Administer 2 Sprays into each nostril in the morning and 2 Sprays at noon and 2 Sprays in the evening and 2 Sprays before bedtime. for nasal dryness or congestion. 60 mL 0 11/22/2020 Active Bradley 3 1200 MG Oral CapsuleIndications:[facility] [...] A1c goal of less than 8.0% ([facility]) Use to test blood sugar 3-4 times a day dx E11.9 400 Each 3 03/13/2021 Active OneTouch Verio In Vitro Strip (Glucose Blood)Indications:Ty pe 2 diabetes mellitus with hemoglobin A1c goal of less than 8.0% ([facility]) Use to test blood sugar 3-4 times a day dx e11.9 400 Strip 3 03/13/2021 Active FreeStyle Robbin 2 Sensor Use as directed. 0 Active Magnesium Oxide 400 (240 Mg) MG Oral TabletIndications:Ch ronic diastolic CHF (congestive heart failure) ([facility]) Take 1 Tab by mouth daily. 28 Tab 5 04/19/2021 Active oxygen IN GAS Use 2 L/min(Oxygen) as directed continuous. 0 Active Insulin Syringes (Disposable) U-100 1 MLIndications:Type 2 diabetes mellitus with hemoglobin A1c goal of less than 8.0% ([facility]) Twice a day 200 Each 1 11/23/2021 [...] ications:COPD, group B, by GOLD 2017 classification ([facility]) INHALE ONE PUFF BY MOUTH EVERY MORNING 60 Each 5 07/20/2023 4 Active HYDROcodone-Acetamin ophen 5-325 MG Oral TabletIndications:DD D (degenerative disc disease), lumbar Take 1 Tablet by mouth every 8 hours as needed (back). 30 Tablet 0 08/13/2023 Active Furosemide 40 MG Oral Tablet (Lasix)Indications:C hronic diastolic CHF (congestive heart failure) ([facility]) TAKE TWO TABLETS BY MOUTH EVERY MORNING [...] all other days or as directed by [facility] 135 Tablet 3 09/24/2023 Active FLUoxetine HCl 20 MG Oral Capsule (PROzac)Indications: Moderate episode of recurrent major depressive disorder ([facility]) TAKE ONE CAPSULE BY MOUTH EVERY DAY 90 Capsule 1 09/25/2023 Active Potassium Chloride Carly ER 10 MEQ Oral Tablet Extended Release TAKE ONE TABLET BY MOUTH EVERY DAY IN THE MORNING 90 Tablet 0 10/31/2023 Active BD Pen Needle Stephanie U/F 32G [...] A1c goal of less than 8.0% ([facility]) inject under the skin 42 units before [...] (Aldactone)Indicatio ns:Chronic diastolic CHF (congestive heart failure) ([facility]) TAKE ONE TABLET BY MOUTH EVERY MORNING, AND ONE TABLET BEFORE BEDTIME 180 Tablet 1 12/25/2023 5 Active Metoprolol Succinate ER 50 MG Oral Tablet Extended Release 24 Hour (toPROL XL) TAKE ONE TABLET BY MOUTH EVERY DAY 90 Tablet 3 01/08/2024 Active Hospital, Clinic, or Other Facility Administered Medication Ordered Dose Route Frequency Start Date End Date Status Albuterol Sulfate (Proventil) (5 MG/ML) 0.5% *conc* inhalation solution 2.5 mgIndications:COPD, group B, by GOLD 2017 classification ([facility]),Chronic respiratory failure with hypoxia, on home oxygen therapy ([facility]) 2.5 mg NEBULIZER PRN 11/26/2023 11/25/2024 Acti ve Albuterol Sulfate (Proventil) (2.5 MG/3ML) 0.083% inhalation solution 2.5 mgIndications:COPD, group B, by GOLD 2017 classification ([facility]),Chronic respiratory failure with hypoxia, on home oxygen therapy ([facility]) 2.5 mg NEBULIZER PRN 11/26/2023 11/25/2024 Acti ve documented as of this encounter (statuses as of 01/09/2024) Active Problems Problem Noted Date Diagnosed Date [...] 68 11/22/2020 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 11/22/2020 [...] as of this encounter (statuses as of 01/09/2024) Resolved Problems Problem Noted Date Diagnosed Date Resolved Date COPD, severity to be determined 08/19/2022 09/18/2023 Overview: Per COPD GOLD Classification Last Assessment & Plan: "RED FLAG" COPD symptoms: Cough ("I get a different kind of cough than what I' have every day") Wheezing ("You can hear the whistling across the room") Medication Regimen All Classes - COLE Class D - Inhaled Qnjytonhqqxjrf-YQGP-[id number] Combination Inhaler (Trellegy) Remote Patient Monitoring Vendor: No Connected RPM Device(s): No current devices Self-Management plan Other/Additional Comments: rescue inhaler, contact [facility] Exacerbation plan Chest Xray Additional [...] as of this encounter (statuses as of 01/09/2024) Immunizations Name Administration Dates Next Due COVID-19, [...] 2:00 PM EDT Office Visit Pulmonary Medicine, [facility] [address] [facility] [place] [address] Ariel Wing MD [address] [place] [address] 01/13/2024 6:30 AM EDT Anticoagulation Pharmacy Call Center 58[address] [facility] [place] [address] [facility] 58 60 [facility] [place] [address] 01/13/2024 1:30 PM EDT Telemedicine Pharmacy, [address] [place] [address] [place] [address] 02/11/2024 11:30 AM EDT [facility] Visit [facility], [facility] [address] [place] [address] Nette Dior, RN [address] [place] [address] 02/17/2024 2:30 PM EDT Office Visit Cardiology [address] [place] [address] Ulices Phillips PA-C [address] [place] [address] 02/19/2024 2:30 PM EDT PulmDiagnostic Pulmonary Function Lab, [facility] [address] [place] [address] [place], [address] [place] [address] 02/25/2024 2:20 PM EDT Office Visit Family Medicine [address] [place] [phone] Edith Osuna MD [address] [place] [address] [place] [address] 07/26/2024 3:00 PM EST Office Visit Nephrology [address] [place] [address] Sonia Logan MD [address] [place] [address] 08/02/2024 2:30 PM EST Nurse Only Ancillary [address] [place] [address] [place], Nurse Annual [address] [place] [address] Health Maintenance Due Date Last Done Comments *BISPHONATE OR OTHER ACCEPTABLE MEDICATION NEEDED FOR OSTEOPOROSIS (REFER TO SMARTSET #1146) 02/07/2023 Diabetic Foot Exam 05/31/2023 05/31/2022, 07/31/2021 CKD PHOS USE SMARTSET 14598 10/04/2023 10/04/2022, 1 09/30/2020 CKD HGB USE SMARTSET 10453 02/06/202402/05, 02/05/2023, 10/04/2022, Additional history exists GFR 06/30/2024 12/30/2023, 01/08, 10/04/2022, Additional history exists HbA1c 06/30/2024 12/30/2023, 01/08, 05/31/2022, Additional history exists DXA Scan 07/03/2024 07/03/2022, 07/03/2022 Albumin/Creatinine Ratio 08/29/2024 023, 05/31/2022, 08/28/2021, Additional history exists O2 ASSESSMENT COMPLETED IN PAST YEAR FOR COPD 12/23/2024 12/24/2023 Diabetic Eye Exam 01/08/2025 01/07/2024, , 07/31/2021, Additional history exists DTaP,Tdap,and Td Vaccines (2 - Td or Tdap) 11/24/2031 11/23/2021 (Not indicated) Zoster Vaccines Discontinued 03/20/2021 Pneumococcal Vaccine: 65+ Years Completed 07/31/2021, 02/15/2021 COVID-19 Vaccine Discontinued 08/14/2021, 01/20/2021 VITAMIN D LEVEL ONCE IN A LIFETIME-USE SMARTSET# 31500 Completed 02/05/2023 Influenza Vaccine (FLU shot) Completed [...] Procedure Name Priority Date/Time Associated Diagnosis Comments DIABETIC EYE EXAM Routine 01/07/2024 documented in this encounter Results * DIABETIC EYE EXAM (01/07/2024) 01/07/2024 History Per Patient OTHER OUTSIDE LAB (SEE SCANNED REPORT) documented in this encounter Care Teams Plan Rep Relationship Specialty Start Date End Date Edith Osuna MD [address] [place] [address] [place] [phone] PCP - General Family Medicine 02/15/21 documented as of this encounter
--- OUTSIDE RECORDS SUMMARY | 2024-05-12 05:19 | External Medical Summary ---
Author Name Unknown Address Unknown Organization K01:[facility] - [address] [place] [address] Laboratory Report Ordering Provider Test Date Status IVONNE BUNDY 12/30/2023 14:52:28 Final Observation Date Value Abnormality Reference (Units ) Status MYCODE SPECIMEN-SST 12/30/2023 14:52:28 Freezing of extracted DNA, whole blood and/or serum. Final Performing Location [facility] - [address] [place] [address]
--- OUTSIDE RECORDS SUMMARY | 2024-05-12 05:19 | External Medical Summary | Summary of Care ---
Author Name Unknown Organization [facility] Address [address] [facility] [place] [place] [address] Phone [phone] Care Team Providers Care Float Remover Name Role Phone Edith Osuna MD Primary Care Prov ider Reason for Visit * Reason Comments Dosage Adjustment In Person (Anticoag Cl inic) Diabetes Follow-Up Encounter Details Date Type Department Care Team (Late st Contact Info) Description 12/30/2023 2:30 PM EDT Office Visit Pharmacy, [address] [place] [address] [place] [address] Type 2 diabetes mellitus with hemoglobin A1c goal of less than 8.0% ([facility])* Allergies Active Allergy Reactions Criticality Noted Date [...] 30 Tab 0 11/22/2020 Active Saline Nasal [place] 0.65 % Nasal SolutionIndications: for nasal dryness or congestion Administer 2 Sprays into each nostril in the morning and 2 Sprays at noon and 2 Sprays in the evening and 2 Sprays before bedtime. for nasal dryness or congestion. 60 mL 0 11/22/2020 Active [place] 3 1200 MG Oral CapsuleIndications:h [facility] [...] goal of less than 8.0% ([facility]) Use to test blood sugar 3-4 times a day dx E11.9 400 Each 3 03/13/2021 Active OneTouch Verio In Vitro Strip (Glucose Blood)Indications:Ty pe 2 diabetes mellitus with hemoglobin A1c goal of less than 8.0% ([facility]) Use to test blood sugar 3-4 times a day dx e11.9 400 Strip 3 03/13/2021 Active FreeStyle Robbin 2 Sensor Use as directed. 0 Active Magnesium Oxide 400 (240 Mg) MG Oral TabletIndications:Ch ronic diastolic CHF (congestive heart failure) ([facility]) Take 1 Tab by mouth daily. 28 Tab 5 04/19/2021 Active oxygen IN GAS Use 2 L/min(Oxygen) as directed continuous. 0 Active Insulin Syringes (Disposable) U-100 1 MLIndications:Type 2 diabetes mellitus with hemoglobin A1c goal of less than 8.0% ([facility]) Twice a day 200 Each [...] B, by GOLD 2017 classification ([facility]) INHALE ONE PUFF BY MOUTH EVERY MORNING 60 Each 5 07/20/2023 4 Active HYDROcodone-Acetamin ophen 5-325 MG Oral TabletIndications:DD D (degenerative disc disease), lumbar Take 1 Tablet by mouth every 8 hours as needed (back). 30 Tablet 0 08/13/2023 Active Furosemide 40 MG Oral Tablet (Lasix)Indications:C hronic diastolic CHF (congestive heart failure) ([facility]) TAKE TWO TABLETS BY MOUTH [...] all other days or as directed by [facility] 135 Tablet 3 09/24/2023 Active FLUoxetine [...] goal of less than 8.0% ([facility]) inject under the skin 42 [...] diastolic CHF (congestive heart failure) ([facility]) TAKE ONE TABLET BY MOUTH EVERY MORNING, AND ONE TABLET BEFORE BEDTIME 180 Tablet 1 12/25/2023 5 Active Hospital, Clinic, or Other Facility Administered Medication Ordered Dose Route Frequency Start Date End Date Status Albuterol Sulfate (Proventil) (5 MG/ML) 0.5% *conc* inhalation solution 2.5 mgIndications:COPD, group B, by GOLD 2017 classification ([facility]),Chronic respiratory failure with hypoxia, on home oxygen therapy ([facility]) 2.5 mg NEBULIZER PRN 11/26/2023 11/25/2024 Acti ve Albuterol Sulfate (Proventil) (2.5 MG/3ML) 0.083% inhalation solution 2.5 mgIndications:COPD, group B, by GOLD 2017 classification ([facility]),Chronic respiratory failure with hypoxia, on home oxygen therapy ([facility]) 2.5 mg NEBULIZER PRN 11/26/2023 [...] 70 11/22/2020 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 Never true 08/19/20 Within the past 12 months, t he [...] as of this encounter Progress Notes * Kathie Peters, [facility] - 12/30/2023 2:28 PM EDT Medication Therapy Disease Management [facility] - Diabetes Management Progress Note Fani Merritt, identified by name and date of , is a 78 year old female being seen for diabetes management/education. Patient presents for return diabetic visit. Patient presents with Kishan (son) DIABETES: Current diabetic medications: Tresiba Pen - 42 units at bedtime NovoLog Vial - 10 units with breakfast and supper eGFR 38 as of 02/05/23 A1c goal < 8% Medication Injection Site: Abdomen Lifestyle: Diet: unchanged Glucose Review/SMBG: Readings obtained from patient device Hypoglycemia: Does your blood sugar go below 70 mg/dL? Yes, discussed below Hyperglycemia symptoms present: none Recent Labs Units 02/05/23 1500 05/31/22 1519 HEMOGLOBIN A1C - [facility] % 7.8* 7.9* Recent Labs Units 02/05/23 1500 10/04/22 1505 05/31/22 1519 ESTIMATED GLOMERULAR FILTRATION RATE - [facility] mL/min 38* 37* 41* CREATININE - [facility] mg/dL 1.4* 1.4* 1.3* HYPERTENSION: Patient on ACEi/ARB: no, deferred to PCP BP Readings from Last 3 Encounters: 12/24/23 112/64 11/26/23 116/62 11/20/23 114/70 Blood pressure at goal: yes HYPERLIPIDEMIA: Patient is taking moderate or high intensity statin: yes HEALTH MAINTENANCE REVIEW: Health Maintenance Due Topic Date Due *BISPHONATE OR OTHER ACCEPTABLE MEDICATION NEEDED FOR OSTEOPOROSIS (REFER TO SMARTSET #1146) Never done Diabetic Foot Exam 05/31/2023 HbA1c 08/07/2023 GFR 08/07/2023 CKD PHOS USE SMARTSET 72659 10/04/2023 Diabetic Eye Exam 12/07/2023 ASSESSMENT & PLAN: ICD-10-CM 1. Type 2 diabetes mellitus with hemoglobin A1c goal of less than 8.0% ([facility]) E11.9 Considerations: Medicare + [employer] Metformin - was told to stop HF - consider SGLT2 --> h/o skin yeast infections Renal dx Transportation can be difficult Ozempic --> Diarrhea 07/2021 [place] Dexcom G7 --> Gaboro BG Readings - Blood sugars reviewed per Dexcom shipper/receiver. Unable to be downloaded during today's OV.Successfully started utilizing Dexcom G7 system without issue. Patient's son reports he can download shipper/receiver to Dexcom Clarity every 2 weeks to utilize video visits and reduce transportation burden. Of note, patient reports lows around 4-5 AM several times weekly. Medications - Reviewed current regimen, patient is adherent to regimen. Tolerating well. Agreeable to slightly reduce Tresiba today to reduce hypoglycemia. Will further assess per Dexcom download. Diet, Exercise, Lifestyle - No significant lifestyle changes since last visit. Patient is agreeable to SMBG daily with CGM (Dexcom) Patient aware to contact clinic if any hypoglycemia before next visit. MEDICATION CHANGES: Yes, see below Diabetic Medications: DEC Tresiba Pen - 40 units at bedtime NovoLog Vial - 10 units with breakfast and supper eGFR 38 as of 02/05/23 A1c goal < 8% HEALTH MAINTENANCE INTERVENTIONS: Deferred d/t time constraints FOLLOW UP: Return to clinic in 2 weeks (video visit) 01/13/2024 Kathie Peters [facility] Clinical Pharmacist - Bridge Maintainer Medication Therapy Management Clinic 12/30/2023, 2:28 PM documented in this encounter Plan of Treatment Upcoming Encounters Date Type Department Care Team (Late st Contact Info) Description 01/06/2024 6:30 AM EDT Anticoagulation Pharmacy [facility] [address] [facility] [place] [address] Ccps, [facility] 58 60 [facility] [place] [address] 01/07/2024 2:30 PM EDT PulmDiagnostic Pulmonary Function Lab, [facility] [address] [facility] [place] [address] [place], [address] [facility] [place] [address] 01/12/2024 2:00 PM EDT Office Visit Pulmonary Medicine, [facility] [address] [facility] [place] [address] Ariel Wing [facility] [address] [facility] [address] 01/13/2024 1:30 PM EDT Telemedicine Pharmacy, [address] [place] [address] [place] [address] 02/11/2024 11:30 AM EDT [facility] Visit [facility], [facility] [address] [place] [address] Nette Dior, [place] [address] [facility] [place] [address] 02/17/2024 2:30 PM EDT Office Visit Cardiology [address] [place] [address] Ulices Phillips PA-C [address] [place] [address] 02/25/2024 2:20 PM EDT Office Visit Family Medicine [address] [place] [phone] Edith Osuna MD [address] [place] [address] [place] [address] 07/26/2024 3:00 PM EST Office Visit Nephrology [address] [place] [address] [facility] [address] [facility] [address] 08/02/2024 2:30 PM EST Nurse Only Ancillary [address] [place] [address] [place], Nurse Annual Wellness [address] [place] [address] [place] [address] Health Maintenance Due Date Last Done Comments *BISPHONATE OR OTHER ACCEPTABLE MEDICATION NEEDED FOR OSTEOPOROSIS (REFER TO SMARTSET #1146) 02/07/2023 Diabetic Foot Exam 05/31/2023 05/31/2022, 07/31/2021 GFR 08/07/2023 02/05/2023, 09/09, 05/31/2022, Additional history exists HbA1c 08/07/2023 02/05/2023, 05/10, 11/23/2021, Additional history exists CKD PHOS USE SMARTSET 86965 10/04/2023 10/04/2022, 1 09/30/2020 Diabetic Eye Exam 12/07/2023 12/06/2022, , 07/02/2019 CKD HGB USE SMARTSET 55522 02/06/202402/05, 02/05/2023, 10/04/2022, Additional history exists DXA [...] D LEVEL ONCE IN A LIFETIME-USE SMARTSET# 47198 Completed 02/05/2023 Influenza Vaccine (FLU shot) Completed [...] Primary documented in this encounter Care Teams Float Remover Relationship Specialty Start Date End Date Edith Osuna MD [address] [place] [address] [place] [address] PCP - General Family Medicine 02/15/21 documented as of this encounter
--- OUTSIDE RECORDS SUMMARY | 2024-05-12 05:19 | External Medical Summary | Summary of Care ---
Author Name Unknown Organization [facility] Address [address] [place] [address] Phone [phone] Care Team Providers Care Corporate Executive Chef Name Role Phone Edith Osuna MD Primary Care Prov ider Reason for Visit * Reason Onset Date Comments Test Results 01/01/2024 Encounter Details Date Type Department Care Team (Late st Contact Info) Description 01/01/2024 Telephone Family Medicine [address] [phone] Edith Osuna MD [address] [place] [phone] Test Results Allergies Active Allergy Reactions Criticality Noted Date Comments Abhinav Inhibitors Cough 12/25/2021 Aspirin 02/15/2021 "delgado" her stomach, had a GI bleed in the past Codeine 11/22/2020 Morphine 11/22/2020 Oxycodone 11/22/2020 Nausea, vomiting, chest pain Semaglutide(0.25 Or 0.5mg-Dos) Diarrhea 10/04/2022 Severe documented as of this encounter (statuses as of 01/01/2024) Medications Medication Sig Dispensed Refills Start Date End Date Status Ferrous Sulfate 325 (65 Fe) MG Oral Tablet (Feosol)Indications: anemia Take 1 Tablet by mouth daily with breakfast. 30 Tab 0 11/22/2020 Active Multivitamin Adult Oral TabletIndications:venegas pplementation Take by mouth 1 Tablet daily . 30 Tab 0 11/22/2020 Active Saline Nasal [place] 0.65 % Nasal SolutionIndications: for nasal dryness or congestion Administer 2 Sprays into each nostril in the morning and 2 Sprays at noon and 2 Sprays in the evening and 2 Sprays before bedtime. for nasal dryness or congestion. 60 mL 0 11/22/2020 Active [place] 3 1200 MG Oral CapsuleIndications: [facility] [...] ications:COPD, group B, by GOLD 2017 classification ([facility]) INHALE ONE PUFF BY MOUTH EVERY MORNING 60 Each 5 07/20/2023 4 Active HYDROcodone-Acetamin ophen 5-325 MG Oral TabletIndications:DD D (degenerative disc disease), lumbar Take 1 Tablet by mouth every 8 hours as needed (back). 30 Tablet 0 08/13/2023 Active Furosemide 40 MG Oral Tablet (Lasix)Indications:C hronic diastolic CHF (congestive heart failure) ([facility]) TAKE TWO TABLETS BY MOUTH EVERY MORNING [...] all other days or as directed by [facility] 135 Tablet 3 09/24/2023 Active FLUoxetine HCl 20 MG Oral Capsule (PROzac)Indications: Moderate episode of recurrent major depressive disorder ([facility]) TAKE ONE CAPSULE BY MOUTH EVERY DAY [...] hemoglobin A1c goal of less than 8.0% ([facility]) inject under the skin 42 units before [...] (Aldactone)Indicatio ns:Chronic diastolic CHF (congestive heart failure) ([facility]) TAKE ONE TABLET BY MOUTH EVERY MORNING, AND ONE TABLET BEFORE BEDTIME 180 Tablet 1 12/25/2023 5 Active Cephalexin 250 MG Oral Capsule Take 1 Capsule by mouth in the morning and 1 Capsule at noon and 1 Capsule before bedtime. Do all this for 5 days. 15 Capsule 0 01/01/2024 4 Active Hospital, Clinic, or Other Facility Administered Medication Ordered Dose Route Frequency Start Date End Date Status Albuterol Sulfate (Proventil) (5 MG/ML) 0.5% *conc* inhalation solution 2.5 mgIndications:COPD, group B, by GOLD 2017 classification ([facility]),Chronic respiratory failure with hypoxia, on home oxygen therapy ([facility]) 2.5 mg NEBULIZER PRN 11/26/2023 11/25/2024 Acti ve Albuterol Sulfate (Proventil) (2.5 MG/3ML) 0.083% inhalation solution 2.5 mgIndications:COPD, group B, by GOLD 2017 classification ([facility]),Chronic respiratory failure with hypoxia, on home oxygen therapy ([facility]) 2.5 mg NEBULIZER PRN 11/26/2023 11/25/2024 Acti ve documented as of this encounter (statuses as of 01/01/2024) Active Problems Problem Noted Date Diagnosed Date [...] 70 11/22/2020 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 11/22/2020 Last [...] as of this encounter (statuses as of 01/01/2024) Resolved Problems Problem Noted Date Diagnosed Date Resolved Date COPD, severity to be determined 08/19/2022 09/18/2023 Overview: Per COPD GOLD Classification Last Assessment & Plan: "RED FLAG" COPD symptoms: Cough ("I get a different kind of cough than what I' have every day") Wheezing ("You can hear the whistling across the room") Medication Regimen All Classes - COLE Class D - Inhaled Cdznhqmwusrtck-SFPB-TDPG Combination Inhaler (Trellegy) Remote Patient Monitoring Vendor: No Connected RPM Device(s): No current devices Self-Management plan Other/Additional Comments: rescue inhaler, contact [facility] Exacerbation plan Chest Xray Additional Comments: [...] as of this encounter (statuses as of 01/01/2024) Immunizations Name Administration Dates Next Due COVID-19, [...] encounter Miscellaneous Notes * Telephone Encounter - Hank Elise LPN - 01/01/2024 4:37 PM EDT Pt aware of note below and she will start taking it 01/01/24 * Telephone Encounter - Edith Osuna MD - 01/01/2024 12:34 PM EDT Urine culture positive for infection. Rx keflex sent to pharmacy for her. Her A1C, cholesterol and renal function are stable. documented in this encounter Plan of Treatment Upcoming Encounters Date Type Department Care Team (Late st Contact Info) Description 01/06/2024 6:30 AM EDT Anticoagulation Pharmacy Call Center [facility] [address] [facility] [place] [address] [facility] 58 60 [facility] [place] [address] 01/07/2024 2:30 PM EDT PulmDiagnostic Pulmonary Function Lab, [facility] [address] [place] [address] [place], [address] [place] [address] 01/12/2024 2:00 PM EDT Office Visit Pulmonary Medicine, [facility] [address] [place] [address] Ariel Wing MD [address] [facility] [place] [address] 01/13/2024 1:30 PM EDT Telemedicine Pharmacy, [address] [place] [address] [place] [address] 02/11/2024 11:30 AM EDT Home Visit [facility] 132 [place] [address] Nette Diro, RN 132 [place] [address] 02/17/2024 2:30 PM EDT Office Visit Cardiology [address] [place] [address] Ulices Phillips PA-C 132 [place] [address] 02/25/2024 2:20 PM EDT Office Visit Family Medicine [address] [place] [phone] Edith Osuna MD [address] [place] [address] [place] [address] 07/26/2024 3:00 PM EST Office Visit Nephrology [address] [place] [address] Sonia Logan MD [address] [facility] [place] [address] 08/02/2024 2:30 PM EST Nurse Only Ancillary [address] [place] [address] [place], Nurse Annual Wellness [address] [place] [address] [place] [address] Health Maintenance Due Date Last Done Comments *BISPHONATE OR OTHER ACCEPTABLE MEDICATION NEEDED FOR OSTEOPOROSIS (REFER TO SMARTSET #1146) 02/07/2023 Diabetic Foot Exam 05/31/2023 05/31/2022, 07/31/2021 CKD PHOS USE SMARTSET 68047 10/04/2023 10/04/2022, 1 09/30/2020 Diabetic Eye Exam 12/07/2023 12/06/2022, , 07/02/2019 CKD HGB USE SMARTSET 36084 02/06/202402/05, 02/05/2023, 10/04/2022, Additional history exists GFR [...] D LEVEL ONCE IN A LIFETIME-USE SMARTSET# 97553 Completed 02/05/2023 Influenza Vaccine (FLU shot) Completed [...] filedocumented as of this encounter Care Teams Corporate Executive Chef Relationship Specialty Start Date End Date Edith Osuna MD [address] [place] [address] [place] [phone] PCP - General Family Medicine 02/15/21 documented as of this encounter
--- OUTSIDE RECORDS SUMMARY | 2024-05-12 05:19 | External Medical Summary ---
Author Name Unknown Address Unknown Organization K01:[facility] [place] [address] [facility] [place] [address] Laboratory Report Ordering Provider Test Date Status GRZEGORZ NAZARIO 12/30/2023 14:52:28 Final Observation Date Value Abnormality Reference (Units ) Status Triglyceride 12/30/2023 14:52:28 161 <=174 ( mg/dL) Final Triglyceride Reference Range s (mg/dL):
<150 Acceptable
150-174 Borderline high
175-499 High
>=500 Very high Cholesterol 12/30/2023 14:52:28 162 <200 (mg /dL) Final Total Cholesterol Reference Ranges (mg/dL):
<200 Desirable
200-239 Borderline high
>=240 High HDL 12/30/2023 14:52:28 29 Below low normal >49 (mg/dL) Final HDL Cholesterol Reference Ra nges (mg/dL):
>=60 High (Desirable)
<50 Low (Undesirable) For Females
<40 Low (Undesirable) For Males NON-HDL CHOLESTEROL 12/30/2023 14:52:28 133 <=159 (mg/dL) Final Non-HDL Cholesterol Referenc e Range (mg/dL):
<100 Target level for high risk ASCVD patient
<130 Optimal for general population
130-159 Near optimal for general population
160-189 Borderline High
190-219 High
>=220 Very High LDL, (calculated) 12/30/2023 14:52:28 101 <= 129 (mg/dL) Final LDL Cholesterol Reference Ra nges (mg/dL):
<70 Target level for high risk ASCVD patient
<100 Optimal for general population
100-129 Near optimal for general population
130-159 Borderline high
160-189 High
>=190 Very high Performing Location [facility] [place] - [address] [facility] [address]
--- OUTSIDE RECORDS SUMMARY | 2024-05-12 05:20 | External Medical Summary | Summary of Care ---
Author Name Unknown Organization [facility] Address [address] [place] [address] Phone [phone] Care Team Providers Care Talent Buyer Name Role Phone Edith Osuna MD Primary Care Prov ider Encounter Details Date Type Department Care Team (Late st Contact Info) Description 12/04/2023 Population Health External Data Unspecified Department Allergies Active Allergy Reactions Criticality Noted Date Comments Abhinav Inhibitors Cough 12/25/2021 Aspirin 02/15/2021 "delgado" her stomach, had a GI bleed in the past Codeine 11/22/2020 Morphine 11/22/2020 Oxycodone 11/22/2020 Nausea, vomiting, chest pain Semaglutide(0.25 Or 0.5mg-Dos) Diarrhea 10/04/2022 Severe documented as of this encounter (statuses as of 12/09/2023) Medications Medication Sig Dispensed Refills Start Date End Date Status Ferrous Sulfate 325 (65 Fe) MG Oral Tablet (Feosol)Indications: anemia Take 1 Tablet by mouth daily with breakfast. 30 Tab 0 11/22/2020 Active Multivitamin Adult Oral TabletIndications:venegas pplementation Take by mouth 1 Tablet daily . 30 Tab 0 11/22/2020 Active Saline Nasal [place] 0.65 % Nasal SolutionIndications: for nasal dryness or congestion Administer 2 Sprays into each nostril in the morning and 2 Sprays at noon and 2 Sprays in the evening and 2 Sprays before bedtime. for nasal dryness or congestion. 60 mL 0 11/22/2020 Active [place] 3 1200 MG Oral CapsuleIndications:[facility] [...] less than 8.0% ([facility]) Use to test blood sugar 3-4 times a day dx E11.9 400 Each 3 03/13/2021 Active OneTouch Verio In Vitro Strip (Glucose Blood)Indications:Ty pe 2 diabetes mellitus with hemoglobin A1c goal of less than 8.0% ([facility]) Use to test blood sugar 3-4 times a day dx e11.9 400 Strip 3 03/13/2021 Active FreeStyle Robbin 2 Sensor Use as directed. 0 Active Magnesium Oxide 400 (240 Mg) MG Oral TabletIndications:Ch ronic diastolic CHF (congestive heart failure) ([facility]) Take 1 Tab by mouth daily. 28 Tab 5 04/19/2021 Active oxygen IN GAS Use 2 L/min(Oxygen) as directed continuous. 0 Active Insulin Syringes (Disposable) U-100 1 MLIndications:Type 2 diabetes mellitus with hemoglobin A1c goal of less than 8.0% ([facility]) Twice a day 200 Each [...] morning. As needed constipation . 0 Active Denosumab 60 MG/ML Subcutaneous Solution Prefilled Syringe (Prolia)Indications: Age-related osteoporosis without current pathological fracture INJECT 60 MG UNDER THE SKIN ONCE FOR 1 DOSE 1 mL 1 07/19/2022 04/08/202 4 Active Additional Information Patient not taking.Reported on 07/30/2023 Metoprolol Succinate ER 50 MG Oral Tablet Extended Release 24 Hour (toPROL XL) TAKE ONE TABLET BY MOUTH EVERY DAY 90 Tablet 3 12/17/2022 4 Active Atorvastatin Calcium 40 MG Oral Tablet (Lipitor) TAKE ONE TABLET BY MOUTH EVERY DAY 90 Tablet 2 03/20/2023 Active Spironolactone 25 MG Oral Tablet (Aldactone)Indicatio ns:Chronic diastolic CHF (congestive heart failure) ([facility]) TAKE ONE TABLET BY MOUTH EVERY MORNING, AND ONE BEFORE BEDTIME 180 Tablet 1 06/30/2023 4 Active Trelegy Ellipta 100-62.5-25 MCG/ACT Aerosol [...] all other days or as directed by [facility] 135 Tablet 3 09/24/2023 Active FLUoxetine [...] until gone.. 20 Capsule 0 11/26/2023 Active Hospital, Clinic, or Other Facility Administered [...] as of this encounter (statuses as of 12/09/2023) Active Problems Problem Noted Date Diagnosed Date COPD, group B, by GOLD 2017 classification 09/15 Overview: Per COPD GOLD Classification Age-related osteoporosis wit hout current pathological fracture 02/05/2023 Last Assessment & Plan: Currently on prolia injections Chronic respiratory failure with hypoxia, on home oxygen therapy 10/04/2022 Overview: Wearing 3L continuously Last Assessment & Plan: Wearing 3L continuously Subclinical hypothyroidism 10/04/2022 History of WI (myocardial infarction) 05/31/2022 Type 2 diabetes mellitus [...] as of this encounter (statuses as of 12/09/2023) Resolved Problems Problem Noted Date Diagnosed Date Resolved Date COPD, severity to be determined 08/19/2022 09/18/2023 Overview: Per COPD GOLD Classification Last Assessment & Plan: "RED FLAG" COPD symptoms: Cough ("I get a different kind of cough than what I' have every day") Wheezing ("You can hear the whistling across the room") Medication Regimen All Classes - COLE Class D - Inhaled Azyzdhsgrxxnrb-IMUX-ITQA Combination Inhaler (Trellegy) Remote Patient Monitoring Vendor: No Connected RPM Device(s): No current devices Self-Management plan Other/Additional Comments: rescue inhaler, contact [facility] Exacerbation plan Chest Xray Additional [...] as of this encounter (statuses as of 12/09/2023) Immunizations Name Administration Dates Next Due COVID-19, [...] Care Team (Late st Contact Info) Description 12/16/2023 6:10 PM EDT Pharmacy Pharmacy, [address] [place] [address] [place] [address] 12/23/2023 6:30 AM EDT [facility] Call Center [address] [facility] [place] [address] [facility] 60 [facility] [place] [address] 12/24/2023 4:00 PM EDT [facility] [address] [place] [address] Nette Dior, RN 132 [place] [address] 12/30/2023 2:30 PM EDT Office Visit Pharmacy, [address] [place] [address] [place] [address] 01/07/2024 2:30 PM EDT PulmDiagnostic Pulmonary Function Lab, [facility] [place] [address] [place], Pft 132 [facility] [place] [address] 01/12/2024 2:00 PM EDT Office Visit Pulmonary Medicine, [facility] 132 [facility] [place] [address] Ariel Wing MD [address] [facility] [place] [address] 02/17/2024 2:30 PM EDT Office Visit Cardiology [address] [place] [address] Ulices Phillips PAHusseinC 132 [facility] [place] [address] 02/25/2024 2:20 PM EDT Office Visit Family Medicine [address] [place] [phone] Edith Osuna MD [address] [place] [address] [place] [address] 07/26/2024 3:00 PM EST Office Visit Nephrology [address] [place] [address] Sonia Logan MD [address] [facility] [place] [address] 08/02/2024 2:30 PM EST Nurse Only Ancillary [address] [place] [address] [place], Nurse [address] [place] [address] Health Maintenance Due Date Last Done Comments *BISPHONATE OR OTHER ACCEPTABLE MEDICATION NEEDED FOR OSTEOPOROSIS (REFER TO SMARTSET #1146) 02/07/2023 Diabetic Foot Exam 05/31/2023 05/31/2022, 07/31/2021 GFR 08/07/2023 02/05/2023, 09/09, 05/31/2022, Additional history exists HbA1c 08/07/2023 02/05/2023, 05/10, 11/23/2021, Additional history exists CKD PHOS USE SMARTSET 73772 10/04/2023 10/04/2022, 1 09/30/2020 Diabetic Eye Exam 12/07/2023 12/06/2022, , 07/02/2019 CKD HGB USE SMARTSET 00555 02/06/202402/05, 02/05/2023, 10/04/2022, Additional history exists DXA Scan 07/03/2024 07/03/2022, 07/03/2022 Depression Screening 07/30/2024 07/30/2023 Albumin/Creatinine Ratio 08/29/2024 023, 05/31/2022, 08/28/2021, Additional history exists O2 ASSESSMENT COMPLETED IN PAST YEAR FOR COPD 11/25/2024 11/26/2023 DTaP,Tdap,and Td Vaccines (2 - Td or Tdap) 11/24/2031 11/23/2021 (Not indicated) Zoster Vaccines Discontinued 03/20/2021 Pneumococcal Vaccine: 65+ Years Completed 07/31/2021, 02/15/2021 COVID-19 Vaccine Discontinued 08/14/2021, 01/20/2021 VITAMIN D LEVEL ONCE IN A LIFETIME-USE SMARTSET# 30951 Completed 02/05/2023 Influenza Vaccine (FLU shot) Completed [...] filedocumented as of this encounter Care Teams Talent Buyer Relationship Specialty Start Date End Date Edith Osuna MD [address] [place] [address] [place] [address] PCP - General Family Medicine 02/15/21 documented as of this encounter
--- OUTSIDE RECORDS SUMMARY | 2024-05-12 05:20 | External Medical Summary | Summary of Care ---
Author Name Unknown Organization [facility] Address [address] [facility] [place] [address] Phone [phone] Care Team Providers Care Business Objects Analyst Name Role Phone Edith Osuna MD Primary Care Prov ider Encounter Details Date Type Department Care Team (Late st Contact Info) Description 11/28/2023 Result Scan Unspecified Department Kt Tran, DO [address] [place] [address] <No scans attached> Allergies Active Allergy Reactions Criticality Noted Date Comments Abhinav Inhibitors Cough 12/25/2021 Aspirin 02/15/2021 "delgado" her stomach, had a GI bleed in the past Codeine 11/22/2020 Morphine 11/22/2020 Oxycodone 11/22/2020 Nausea, vomiting, chest pain Semaglutide(0.25 Or 0.5mg-Dos) Diarrhea 10/04/2022 Severe documented as of this encounter (statuses as of 11/28/2023) Medications Medication Sig Dispensed Refills Start Date End Date Status Ferrous Sulfate 325 (65 Fe) MG Oral Tablet (Feosol)Indications: anemia Take 1 Tablet by mouth daily with breakfast. 30 Tab 0 11/22/2020 Active Multivitamin Adult Oral TabletIndications:venegas pplementation Take by mouth 1 Tablet daily . 30 Tab 0 11/22/2020 Active Saline Nasal [place] 0.65 % Nasal SolutionIndications: for nasal dryness or congestion Administer 2 Sprays into each nostril in the morning and 2 Sprays at noon and 2 Sprays in the evening and 2 Sprays before bedtime. for nasal dryness or congestion. 60 mL 0 11/22/2020 Active [place] 3 1200 MG Oral CapsuleIndications:[facility] Take by mouth 2 Capsules every [...] of less than 8.0% ([facility]) Use to test blood sugar 3-4 times a day dx E11.9 400 Each 3 03/13/2021 Active OneTouch Verio In Vitro Strip (Glucose Blood)Indications:Ty pe 2 diabetes mellitus with hemoglobin A1c goal of less than 8.0% ([facility]) Use to test blood sugar 3-4 times a day dx e11.9 400 Strip 3 03/13/2021 Active FreeStyle Robbin 2 Sensor Use as directed. 0 Active Magnesium Oxide 400 (240 Mg) MG Oral TabletIndications:Ch ronic diastolic CHF (congestive heart failure) ([facility]) Take 1 Tab by mouth daily. 28 Tab 5 04/19/2021 Active oxygen IN GAS Use 2 L/min(Oxygen) as directed continuous. 0 Active Insulin Syringes (Disposable) U-100 1 MLIndications:Type 2 diabetes mellitus with hemoglobin A1c goal of less than 8.0% ([facility]) Twice a day 200 Each 1 11/23/2021 [...] FOR 1 DOSE 1 mL 1 07/19/2022 4 Active Additional Information Patient not taking.Reported [...] CHF (congestive heart failure) ([facility]) TAKE ONE TABLET BY MOUTH EVERY MORNING, AND ONE BEFORE BEDTIME 180 Tablet 1 06/30/2023 4 Active Trelegy Ellipta 100-62.5-25 MCG/ACT Aerosol Powder Breath Activated (Fluticasone-Umeclid inium-Vilanterol)Ind ications:COPD, group B, by GOLD 2017 classification ([facility]) INHALE ONE PUFF BY MOUTH EVERY MORNING 60 Each 5 07/20/2023 4 Active HYDROcodone-Acetamin ophen 5-325 MG Oral TabletIndications:DD D (degenerative disc disease), lumbar Take 1 Tablet by mouth every 8 hours as needed (back). 30 Tablet 0 08/13/2023 Active Furosemide 40 MG Oral Tablet (Lasix)Indications:C hronic diastolic CHF (congestive heart failure) ([facility]) TAKE TWO TABLETS BY MOUTH EVERY MORNING [...] of less than 8.0% ([facility]) inject under the skin 42 units before [...] by GOLD 2017 classification ([facility]),Chronic respiratory failure with hypoxia, on home oxygen therapy ([facility]) 2.5 mg NEBULIZER PRN 11/26/2023 11/25/2024 Acti ve Albuterol Sulfate (Proventil) (2.5 MG/3ML) 0.083% inhalation solution 2.5 mgIndications:COPD, group B, by GOLD 2017 classification ([facility]),Chronic respiratory failure with hypoxia, on home oxygen therapy ([facility]) 2.5 mg NEBULIZER PRN 11/26/2023 11/25/2024 Acti ve documented as of this encounter (statuses as of 11/28/2023) Active Problems Problem Noted Date Diagnosed Date [...] 68 11/22/2020 Coronary artery disease invo lving king salmon coronary artery without angina pectoris 11/22/2020 Last [...] as of this encounter (statuses as of 11/28/2023) Resolved Problems Problem Noted Date Diagnosed Date Resolved Date COPD, severity to be determined 08/19/2022 09/18/2023 Overview: Per COPD GOLD Classification Last Assessment & Plan: "RED FLAG" COPD symptoms: Cough ("I get a different kind of cough than what I' have every day") Wheezing ("You can hear the whistling across the room") Medication Regimen All Classes - COLE Class D - Inhaled Fdaokjtlzpizco-ZBJG-RIFI Combination Inhaler (Trellegy) Remote Patient Monitoring Vendor: [...] as of this encounter (statuses as of 11/28/2023) Immunizations Name Administration Dates Next Due COVID-19, [...] Care Team (Late st Contact Info) Description 12/02/2023 2:30 PM EDT Office Visit Pharmacy, [address] [place] [address] [place] [address] 12/23/2023 6:30 AM EDT Anticoagulation Pharmacy Call Center [phone] [facility] [place] [address] Ccps, [facility] 58 60 [facility] [place] [address] 12/24/2023 4:00 PM EDT [facility], [facility] 132 [facility] [place] [address] Nette Dior, RN [address] [place] [address] 01/07/2024 2:30 PM EDT PulmDiagnostic Pulmonary Function Lab, [facility] [address] [place] [address] West, [address]ft [address] [place] [address] 01/12/2024 2:00 PM EDT Office Visit Pulmonary Medicine, [facility] [address] [place] [address] Ariel Wing MD [address] [place] [address] 02/17/2024 2:30 PM EDT Office Visit Cardiology [address] [place] [address] Ulices Phillips PAAvani [address] [place] [address] 02/25/2024 2:20 PM EDT Office Visit Family Medicine [address] [place] [phone] Edith Osuna MD [address] [place] [address] [place] [address] 07/26/2024 3:00 PM EST Office Visit Nephrology [address] [place] [address] Sonia Logan MD [address] [facility] [address] 08/02/2024 2:30 PM EST Nurse Only Ancillary [address] [place] [address] [place], Nurse [address] [place] [address] Health Maintenance Due Date Last Done Comments *BISPHONATE OR OTHER ACCEPTABLE MEDICATION NEEDED FOR OSTEOPOROSIS (REFER TO SMARTSET #1146) 02/07/2023 Diabetic Foot Exam 05/31/2023 05/31/2022, 07/31/2021 GFR 08/07/2023 02/05/2023, 09/09, 05/31/2022, Additional history exists HbA1c 08/07/2023 02/05/2023, 05/10, 11/23/2021, Additional history exists CKD PHOS USE SMARTSET 26792 10/04/2023 10/04/2022, 1 09/30/2020 Diabetic Eye Exam 12/07/2023 12/06/2022, , 07/02/2019 CKD HGB USE SMARTSET 63988 02/06/202402/05, 02/05/2023, 10/04/2022, Additional history exists DXA [...] D LEVEL ONCE IN A LIFETIME-USE SMARTSET# 59266 Completed 02/05/2023 Influenza Vaccine (FLU shot) Completed [...] Procedure Name Priority Date/Time Associated Diagnosis Comments CARDIOLOGY SCANNED RESULT 11/28/2023 documented in this encounter Results * CARDIOLOGY SCANNED RESULT (11/28/2023) 11/28/2023 Kt Tran DO OTHER documented in this encounter Care Teams Business Objects Analyst Relationship Specialty Start Date End Date Edith Osuna MD [address] [place] [address] [place] [address] PCP - General Family Medicine 02/15/21 documented as of this encounter
--- OUTSIDE RECORDS SUMMARY | 2024-05-12 05:20 | External Medical Summary | Summary of Care ---
Author Name Unknown Organization [facility] Address [address] [place] [address] Phone [phone] Care Team Providers Care Baggage Checker Name Role Phone Edith Osuna MD Primary Care Prov ider Reason for Visit * Reason Onset Date Comments Order Request 09/24/2023 Encounter Details Date Type Department Care Team (Late st Contact Info) Description 09/24/2023 Telephone Family Medicine [address] [phone] Edith Osuna MD [address] [place] [id number] Order Request Allergies Active Allergy Reactions Criticality Noted Date Comments Abhinav Inhibitors Cough 12/25/2021 Aspirin 02/15/2021 "delgado" her stomach, had a GI bleed in the past Codeine 11/22/2020 Morphine 11/22/2020 Oxycodone 11/22/2020 Nausea, vomiting, chest pain Semaglutide(0.25 Or 0.5mg-Dos) Diarrhea 10/04/2022 Severe documented as of this encounter (statuses as of 12/24/2023) Medications Medication Sig Dispensed Refills Start Date End Date Status Ferrous Sulfate 325 (65 Fe) MG Oral Tablet (Feosol)Indication s:anemia Take 1 Tablet by mouth daily with breakfast. 30 Tab 0 11/23/19 21 Active Multivitamin Adult Oral TabletIndications: supplementation Take by mouth 1 Tablet daily . 30 Tab 0 11/23/19 21 Active Saline Nasal [place] 0.65 % Nasal SolutionIndication s:for nasal dryness or congestion Administer 2 Sprays into each nostril in the morning and 2 Sprays at noon and 2 Sprays in the evening and 2 Sprays before bedtime. for nasal dryness or congestion. 60 mL 0 11/23/19 Active [place] 3 1200 MG Oral CapsuleIndications :heart health Take by mouth 2 Capsules every night at bedtime . 60 Cap 0 11/23/19 21 Active Acetaminophen 325 MG Oral Tablet (Tylenol)Indicatio ns:as needed for pain/fever Take 2 Tablets by mouth every 4 hours as needed for Fever (Temp Greater than ) or Pain, Mild. 100 Tab 0 11/23/19 21 Active OneTouch Delica Lancets 30GIndications:Typ e 2 diabetes mellitus with hemoglobin A1c goal of less than 8.0% ([facility]) Use to test blood sugar 3-4 times a day dx E11.9 400 Each 3 03/13/20 21 Active OneTouch Verio In Vitro Strip (Glucose Blood)Indications: Type 2 diabetes mellitus with hemoglobin A1c goal of less than 8.0% ([facility]) Use to test blood sugar 3-4 times a day dx e11.9 400 Strip 3 03/13/20 21 Active FreeStyle Robbin 2 Sensor Use as directed. 0 Active Magnesium Oxide 400 (240 Mg) MG Oral TabletIndications: Chronic diastolic CHF (congestive heart failure) (HCC) Take 1 Tab by mouth daily. 28 Tab 5 04/19/20 21 Active oxygen IN GAS Use 2 L/min(Oxygen) as directed continuous. 0 Active Insulin Syringes (Disposable) U-100 1 MLIndications:Type 2 diabetes mellitus with hemoglobin A1c goal of less than 8.0% ([facility]) Twice a day 200 Each 1 11/24/19 22 Active Ocuvite-Lutein Oral TabletIndications: supplementation Take by mouth 1 Tablet daily . 0 Active Calcium Carbonate-Vitamin D 600-200 MG-UNIT Oral TabletIndications: supplementation Take 1 Tablet by mouth in the morning. 0 Active Albuterol Sulfate 108 (90 Base) MCG/ACT Inhalation Aerosol Powder Breath ActivatedIndicatio ns:wheezing Inhale by mouth 2 Puffs every 4 hours . For wheezing 3 Each 3 05/31/20 22 Active Additional Information Patient not taking.Reported on 11/20/2023 Senna 8.6 MG Oral Capsule Take 1 Tablet by mouth in the morning. As needed constipation . 0 Active Metoprolol Succinate ER 50 MG Oral Tablet Extended Release 24 Hour (toPROL XL) TAKE ONE TABLET BY MOUTH EVERY DAY 90 Tablet 3 12/18/19 23 024 Active Spironolactone 25 MG Oral Tablet (Aldactone)Indicat ions:Chronic diastolic CHF (congestive heart failure) ([facility]) TAKE ONE TABLET BY MOUTH EVERY MORNING, AND ONE BEFORE BEDTIME 180 Tablet 1 06/30/20 23 Active Trelegy Ellipta 100-62.5-25 MCG/ACT Aerosol Powder Breath Activated (Fluticasone-Umecl idinium-Vilanterol )Indications:COPD, group B, by GOLD 2017 classification ([facility]) INHALE ONE PUFF BY MOUTH EVERY MORNING 60 Each 5 07/20/20 23 024 Active HYDROcodone-Acetam inophen 5-325 MG Oral TabletIndications: DDD (degenerative disc disease), lumbar Take 1 Tablet by mouth every 8 hours as needed (back). 30 Tablet 0 08/13/20 23 Active Furosemide 40 MG Oral Tablet (Lasix)Indications :Chronic diastolic CHF (congestive heart failure) ([facility]) TAKE TWO TABLETS BY MOUTH EVERY MORNING 180 Tablet 1 08/18/20 23 Active DIURETIC TITRATION PLAN If no improvement on day 3, contact heart failure managing provider. 1 Each 0 08/21/20 23 Active Omeprazole 20 MG Oral Capsule Delayed Release (PriLOSEC)Indicati ons:Gastro-esophag eal reflux disease without esophagitis TAKE ONE CAPSULE BY MOUTH EVERY DAY 1 HOUR BEFORE THE FIRST MEAL OF THE DAY 90 Capsule 1 08/25/20 23 024 Active dilTIAZem HCl ER Coated Beads 120 MG Oral Capsule Extended Release 24 Hour (Cardizem CD) TAKE ONE CAPSULE BY MOUTH EVERY DAY 90 Capsule 1 08/25/20 23 024 Active Ketoconazole 2 % External CreamIndications:r paul Apply to rash twice a day until clear 60 g 3 09/19/19 24 Active BD Insulin Syringe U/F 31G X 5/16" 0.5 ML (Insulin Syringe-Needle U-100) use twice daily 200 Each 1 09/22/19 24 Active Clopidogrel Bisulfate 75 MG Oral Tablet (pLAVix) TAKE ONE TABLET BY MOUTH EVERY DAY 90 Tablet 1 09/23/19 24 025 Active Warfarin Sodium 2.5 MG Oral Tablet (Coumadin)Indicati ons:Paroxysmal atrial fibrillation (HCC),H/O mitral valve replacement with mechanical valve Take 2.5mg (1 tablet) on Mon,Wed and Fri and 2 tablets (5mg) all other days or as directed by antico clinic 135 Tablet 3 09/24/19 24 Active Insulin Aspart 100 UNIT/ML Injection Solution (NovoLOG)Indicatio ns:blood sugars Inject 10 units with breakfast and 10 units with supper 20 mL 5 05/31/20 22 024 Discontinued Denosumab 60 MG/ML Subcutaneous Solution Prefilled Syringe (Prolia)Indication s:Age-related osteoporosis without current pathological fracture INJECT 60 MG UNDER THE SKIN ONCE FOR 1 DOSE 1 mL 1 07/19/20 22 024 Additional Information Patient not taking.Reported on 07/30/2023 BD Pen Needle Stephanie U/F 32G X 4 MM (Insulin Pen Needle) use daily with tresiba 100 Each 3 01/12/20 23 024 Discontinued traZODone HCl 50 MG Oral Tablet (Desyrel) TAKE ONE TABLET BY MOUTH EVERY DAY AT BEDTIME 90 Tablet 3 11/05/19 23 024 Discontinued(Re fill) Potassium Chloride Carly ER 10 MEQ Oral Tablet Extended Release TAKE ONE TABLET BY MOUTH EVERY DAY IN THE MORNING 90 Tablet 1 03/17/20 23 024 Discontinued(Re fill) Atorvastatin Calcium 40 MG Oral Tablet (Lipitor) TAKE ONE TABLET BY MOUTH EVERY DAY 90 Tablet 2 03/20/20 23 024 Discontinued(Re fill) Tresiba FlexTouch 100 UNIT/ML Subcutaneous Solution Pen-injector (Insulin Degludec)Indicatio ns:Type 2 diabetes mellitus with hemoglobin A1c goal of less than 8.0% ([facility]) INJECT UNDER THE SKIN 42 UNITS BEFORE BEDTIME 45 mL 0 05/06/20 23 024 Discontinued valACYclovir HCl 1 GM Oral Tablet (Valtrex) Take 1 Tablet by mouth in the morning and 1 Tablet before bedtime. Do all this for 7 days. For 7 days for first episode. 14 Tablet 0 09/19/19 24 024 Cephalexin 500 MG Oral CapsuleIndications :Dysuria Take 1 Capsule by mouth in the morning and 1 Capsule at noon and 1 Capsule before bedtime. Do all this for 5 days. 15 Capsule 0 09/26/19 24 024 documented as of this encounter (statuses as of 12/24/2023) Active Problems Problem Noted Date Diagnosed Date COPD, group B, by GOLD 2017 classification 09/15 Overview: Per COPD GOLD Classification Age-related osteoporosis wit hout current pathological fracture 02/05/2023 Last Assessment & Plan: Currently on prolia injections Chronic respiratory failure with hypoxia, on home oxygen therapy 10/04/2022 Overview: Wearing 3L continuously Last Assessment & Plan: Wearing 3L continuously Subclinical hypothyroidism 10/04/2022 History of [place] (myocardial infarction) 05/31/2022 Type 2 diabetes mellitus [...] 68 11/22/2020 Coronary artery disease invo lving [place] coronary artery without angina pectoris 11/22/2020 Last [...] as of this encounter (statuses as of 12/24/2023) Resolved Problems Problem Noted Date Diagnosed Date Resolved Date COPD, severity to be determined 08/19/2022 09/18/2023 Overview: Per COPD GOLD Classification Last Assessment & Plan: "RED FLAG" COPD symptoms: Cough ("I get a different kind of cough than what I' have every day") Wheezing ("You can hear the whistling across the room") Medication Regimen All Classes - COLE Class D - Inhaled [id number] Combination Inhaler (Trellegy) Remote Patient Monitoring Vendor: No Connected RPM Device(s): No current devices Self-Management plan Other/Additional Comments: rescue inhaler, contact [facility] Exacerbation plan Chest Xray Additional [...] as of this encounter (statuses as of 12/24/2023) Immunizations Name Administration Dates Next Due COVID-19, [...] encounter Miscellaneous Notes * Telephone Encounter - Edith Osuna MD - 09/26/2023 6:51 PM EST Rx Keflex sent based on reported symptoms. I also signed order for UA/C but if she starts the antibiotics over the weekend, no need for UA/C. * Telephone Encounter - Hank Elise LPN - 09/24/2023 3:29 PM EST Urine order Pended if agreeable Needs faxed to [facility] * Telephone Encounter - Shonna Abarca OSA - 09/24/2023 1:35 PM EST An order was requested for this patient. Name of Requesting Provider: Cyn From [facility] Order Requested: Urinalysis Diagnosis/Reason for Request: UTI What location AND department does the patient wish to have their order completed at? [facility] Fax Number, if applicable: NA - I asked for fax number but Cyn did not have it in hand she statedthat the office has the fax number Call Back Number: [phone] (Fani, patient's number) If the caller is not a current patient, please advise the patient to call their current PCP to havethe order's prior to being seen in our office. The patient was informed that our providers would not order anything (medication, labs, etc.) prior to being seen. She stated that they could of the urine test for her. Odor Cloudy Delgado when urinating Body Aches Pharmacy updated and verified. documented in this encounter Plan of Treatment Upcoming Encounters Date Type Department Care Team (Late st Contact Info) Description 12/30/2023 6:30 AM EDT Anticoagulation Pharmacy [facility] [address] [facility] [place] [address] [facility] [address] [facility] [place] [address] 12/30/2023 2:30 PM EDT Office Visit Pharmacy, [address] [place] [address] [place] [address] 01/07/2024 2:30 PM EDT PulmDiagnostic Pulmonary Function Lab, [facility] [address] [facility] [place] [address] [address], [address] [place] [address] 01/12/2024 2:00 PM EDT Office Visit Pulmonary Medicine, [facility] [address] [place] [address] Ariel Wing MD [address] [place] [address] 02/11/2024 11:30 AM EDT [facility] Visit [facility], [facility] [address] [place] [address] Nette Dior RN [address] [place] [address] 02/17/2024 2:30 PM EDT Office Visit Cardiology [address] [place] [address] Ulices Phillips PA-C [address] [place] [address] 02/25/2024 2:20 PM EDT Office Visit Family Medicine [address] [place] [phone] Edith Osuna MD [address] [place] [address] [place] [address] 07/26/2024 3:00 PM EST Office Visit Nephrology [address] [place] [address] Sonia Logan MD [address] [place], [place] [address] [address] 08/02/2024 2:30 PM EST Nurse Only Ancillary [address] [place] [address] [place], Nurse Annual [address] [place] [address] Scheduled Orders Name Type Priority Associated Diagnoses Orde r Schedule URINALYSIS, REFLEX TO CULTURE (NOT FOR NEUTROPENIC PATIENTS) Lab Routine Dysuria Expected: 09/27/2023, Expires: 09/26/2024 Health Maintenance Due Date Last Done Comments *BISPHONATE OR OTHER ACCEPTABLE MEDICATION NEEDED FOR OSTEOPOROSIS (REFER TO SMARTSET #1146) 02/07/2023 Diabetic Foot Exam 05/31/2023 05/31/2022, 07/31/2021 GFR 08/07/2023 02/05/2023, 09/09, 05/31/2022, Additional history exists HbA1c 08/07/2023 02/05/2023, 05/10, 11/23/2021, Additional history exists CKD PHOS USE SMARTSET 11689 10/04/2023 10/04/2022, 1 09/30/2020 Diabetic Eye Exam 12/07/2023 12/06/2022, , 07/02/2019 CKD HGB USE SMARTSET 94490 02/06/202402/05, 02/05/2023, 10/04/2022, Additional history exists DXA [...] D LEVEL ONCE IN A LIFETIME-USE SMARTSET# 05417 Completed 02/05/2023 Influenza Vaccine (FLU shot) Completed [...] as of this encounter Visit Diagnoses Diagnosis Dysuria- Primary documented in this encounter Care Teams Baggage Checker Relationship Specialty Start Date End Date Edith Osuna MD [address] [place] [address] [place] [address] PCP - General Family Medicine 02/15/21 documented as of this encounter
--- OUTSIDE RECORDS SUMMARY | 2024-05-12 05:20 | External Medical Summary | Summary of Care ---
Author Name Unknown Organization [facility] [address] [facility] [address] Phone [phone] Care Team Providers Care Carpenter Streetcar Name Role Phone Edith Osuna MD Primary Care Prov ider Reason for Visit * Reason Onset Date Comments Advice 12/01/2023 Encounter Details Date Type Department Care Team (Late st Contact Info) Description 12/01/2023 Telephone Pharmacy, [address] [place] [address] [place] [address] Advice Allergies Active Allergy Reactions Criticality Noted Date Comments Abhinav Inhibitors Cough 12/25/2021 Aspirin 02/15/2021 "delgado" her stomach, had a GI bleed in the past Codeine 11/22/2020 Morphine 11/22/2020 Oxycodone 11/22/2020 Nausea, vomiting, chest pain Semaglutide(0.25 Or 0.5mg-Dos) Diarrhea 10/04/2022 Severe documented as of this encounter (statuses as of 12/01/2023) Medications Medication Sig Dispensed Refills Start Date End Date Status Ferrous Sulfate 325 (65 Fe) MG Oral Tablet (Feosol)Indications: anemia Take 1 Tablet by mouth daily with breakfast. 30 Tab 0 11/22/2020 Active Multivitamin Adult Oral TabletIndications:venegas pplementation Take by mouth 1 Tablet daily . 30 Tab 0 11/22/2020 Active Saline Nasal [place] 0.65 % Nasal SolutionIndications: for nasal dryness or congestion Administer 2 Sprays into each nostril in the morning and 2 Sprays at noon and 2 Sprays in the evening and 2 Sprays before bedtime. for nasal dryness or congestion. 60 mL 0 11/22/2020 Active [place] 3 1200 MG Oral CapsuleIndications:h eart health [...] hemoglobin A1c goal of less than 8.0% ([facility]) Use to test blood sugar 3-4 times a day dx E11.9 400 Each 3 03/13/2021 Active GrupHediyeTouch Verio In Vitro Strip (Glucose Blood)Indications:Ty pe 2 diabetes mellitus with hemoglobin A1c goal of less than 8.0% ([facility]) Use to test blood sugar 3-4 times a day dx e11.9 400 Strip 3 03/13/2021 Active FreeStyle [place] 2 Sensor Use as directed. 0 Active Magnesium Oxide 400 (240 Mg) MG Oral TabletIndications:Ch ronic diastolic CHF (congestive heart failure) ([facility]) Take 1 Tab by mouth daily. 28 Tab 5 04/19/2021 Active oxygen IN GAS Use 2 L/min(Oxygen) as directed continuous. 0 Active Insulin Syringes (Disposable) U-100 1 MLIndications:Type 2 diabetes mellitus with hemoglobin A1c goal of less than 8.0% ([facility]) Twice a day 200 Each [...] (Aldactone)Indicatio ns:Chronic diastolic CHF (congestive heart failure) ([facility]) TAKE ONE TABLET BY MOUTH EVERY MORNING, AND ONE BEFORE BEDTIME 180 Tablet 1 06/30/2023 4 Active Trelegy Ellipta 100-62.5-25 MCG/ACT Aerosol Powder Breath Activated (Fluticasone-Umeclid inium-Vilanterol)Ind ications:COPD, group B, by GOLD 2017 classification ([facility]) INHALE ONE PUFF BY MOUTH EVERY MORNING 60 Each 5 07/20/2023 4 Active HYDROcodone-Acetamin ophen 5-325 MG Oral TabletIndications:DD D (degenerative disc disease), lumbar Take 1 Tablet by mouth every 8 hours as needed (back). 30 Tablet 0 08/13/2023 Active Furosemide 40 MG Oral Tablet (Lasix)Indications:C hronic diastolic CHF (congestive heart failure) ([facility]) TAKE TWO TABLETS BY MOUTH [...] hemoglobin A1c goal of less than 8.0% ([facility]) inject under the skin 42 [...] mgIndications:COPD, group B, by GOLD 2017 classification ([facility]),Chronic respiratory failure with hypoxia, on home oxygen therapy ([facility]) 2.5 mg NEBULIZER PRN 11/26/2023 11/25/2024 Acti ve Albuterol Sulfate (Proventil) (2.5 MG/3ML) 0.083% inhalation solution 2.5 mgIndications:COPD, group B, by GOLD 2017 classification ([facility]),Chronic respiratory failure with hypoxia, on home oxygen therapy ([facility]) 2.5 mg NEBULIZER PRN 11/26/2023 11/25/2024 Acti ve documented as of this encounter (statuses as of 12/01/2023) Active Problems Problem Noted Date Diagnosed Date COPD, group B, by GOLD 2017 classification 09/15 Overview: Per COPD GOLD Classification Age-related osteoporosis wit hout current pathological fracture 02/05/2023 Last Assessment & Plan: Currently on prolia injections Chronic respiratory failure with hypoxia, on home oxygen therapy 10/04/2022 Overview: Wearing 3L continuously Last Assessment & Plan: Wearing 3L continuously Subclinical hypothyroidism 10/04/2022 History of [place] (myocardial infarction) 05/31/2022 Type 2 diabetes mellitus [...] 68 11/22/2020 Coronary artery disease invo lving [place] coronary artery without angina pectoris 11/22/2020 Last [...] as of this encounter (statuses as of 12/01/2023) Resolved Problems Problem Noted Date Diagnosed Date Resolved Date COPD, severity to be determined 08/19/2022 09/18/2023 Overview: Per COPD GOLD Classification Last Assessment & Plan: "RED FLAG" COPD symptoms: Cough ("I get a different kind of cough than what I' have every day") Wheezing ("You can hear the whistling across the room") Medication Regimen All Classes - COLE Class D - Inhaled [id number] Combination Inhaler (Trellegy) Remote Patient Monitoring Vendor: No Connected RPM Device(s): No current devices Self-Management plan Other/Additional Comments: rescue inhaler, contact [facility] Exacerbation plan Chest Xray Additional [...] as of this encounter (statuses as of 12/01/2023) Immunizations Name Administration Dates Next Due COVID-19, [...] encounter Miscellaneous Notes * Telephone Encounter - Kathie Peters RPh - 12/01/2023 4:06 PM EDT Returned call and spoke with Jadon. States patient received Robbin supplies as opposed to Dexcom in the mail. Per [facility] portal, Dexcom supplies was to be sent out at next resupply date. Provided with [facility] [employer] Supply number ([phone]) and instructed to contact. Of note, [facility] states patient is recovering from sinus infection. BG readings remaining stable. Appointment for 12/01 rescheduled to 12/29. Kathie Peters RPh, PharmD Clinical Pharmacist - Associate Financial Analyst Medication Therapy [facility] 12/01/2023, 4:13 PM [phone] * Telephone Encounter - Arlette Mckeon PHARM Tech - 12/01/2023 11:04 AM EDT Caller's name: jadon Preferred call back number(OFFICE NUMBER FOR ): [phone] Reason for call: pt's son calling in pt received a robbin in the mail was to be going from robbin to dexcom/ next apt is for same. Thank you, Arlette Mckeon [facility]itter [facility] ([facility]) (Formerly Tele[facility]) 12/01/2023,11:04 AM documented in this encounter Plan of Treatment Upcoming Encounters Date Type Department Care Team (Late st Contact Info) Description 12/23/2023 6:30 AM EDT Anticoagulation Pharmacy Call Center [address] [facility] [place] [address] [facility], [facility] [address] [facility] [place] [address] 12/24/2023 4:00 PM EDT Home Visit [facility], [facility] [address] [place] [address] Nette Dior, OCTAV[place] [address] [place] [address] 12/30/2023 2:30 PM EDT Office Visit Pharmacy, [address] [place] [address] [place] [address] 01/07/2024 2:30 PM EDT PulmDiagnostic Pulmonary Function Lab, [facility] [address] [place] [address] [address], [address] [place] [address] 01/12/2024 2:00 PM EDT Office Visit Pulmonary Medicine, [facility] [address] [place] [address] [facility]el [facility] [address] [facility] [address] 02/17/2024 2:30 PM EDT Office Visit Cardiology [address] [place] [address] Ulices Phillips PAAvani [address] [place] [address] 02/25/2024 2:20 PM EDT Office Visit Family Medicine [address] [place] [phone] Edith Osuna MD [address] [place] [address] [place] [address] 07/26/2024 3:00 PM EST Office Visit Nephrology [address] [place] [address] Sonia Logan MD [address] [facility], [place] [address] 08/02/2024 2:30 PM EST Nurse Only Ancillary [address] [place] [address] [place], Nurse Annual Wellness [address] [place] [address] [place] [address] Health Maintenance Due Date Last Done Comments *BISPHONATE OR OTHER ACCEPTABLE MEDICATION NEEDED FOR OSTEOPOROSIS (REFER TO SMARTSET #1146) 02/07/2023 Diabetic Foot Exam 05/31/2023 05/31/2022, 07/31/2021 GFR 08/07/2023 02/05/2023, 09/09, 05/31/2022, Additional history exists HbA1c 08/07/2023 02/05/2023, 05/10, 11/23/2021, Additional history exists CKD PHOS USE SMARTSET 81579 10/04/2023 10/04/2022, 1 09/30/2020 Diabetic Eye Exam 12/07/2023 12/06/2022, , 07/02/2019 CKD HGB USE SMARTSET 00954 02/06/202402/05, 02/05/2023, 10/04/2022, Additional history exists DXA [...] D LEVEL ONCE IN A LIFETIME-USE SMARTSET# 69412 Completed 02/05/2023 Influenza Vaccine (FLU shot) Completed [...] Primary documented in this encounter Care Teams Carpenter Streetcar Relationship Specialty Start Date End Date Edith Osuna MD [address] [place] [address] [place] [phone] PCP - General Family Medicine 02/15/21 documented as of this encounter
--- OUTSIDE RECORDS SUMMARY | 2024-05-12 05:20 | External Medical Summary | Summary of Care ---
Author Name Unknown Organization [facility] Address [address] [place] [address] Phone [phone] Care Team Providers Care Communications Technician Name Role Phone Edith Osuna MD Primary Care Prov ider Reason for Visit * Reason Onset Date Comments Medication Refill 12/10/2023 Encounter Details Date Type Department Care Team (Late st Contact Info) Description 12/10/2023 Refill Family Medicine [address] [phone] Edith Osuna MD [address] [place] [address] [place] [address] Allergies Active Allergy Reactions Criticality Noted Date Comments Abhinav Inhibitors Cough 12/25/2021 Aspirin 02/15/2021 "delgado" her stomach, had a GI bleed in the past Codeine 11/22/2020 Morphine 11/22/2020 Oxycodone 11/22/2020 Nausea, vomiting, chest pain Semaglutide(0.25 Or 0.5mg-Dos) Diarrhea 10/04/2022 Severe documented as of this encounter (statuses as of 12/11/2023) Medications Medication Sig Dispensed Refills Start Date End Date Status Ferrous Sulfate 325 (65 Fe) MG Oral Tablet (Feosol)Indications :anemia Take 1 Tablet by mouth daily with breakfast. 30 Tab 0 11/22/2020 Active Multivitamin Adult Oral TabletIndications:s upplementation Take by mouth 1 Tablet daily . 30 Tab 0 11/22/2020 Active Saline Nasal [place] 0.65 % Nasal SolutionIndications :for nasal dryness or congestion Administer 2 Sprays into each nostril in the morning and 2 Sprays at noon and 2 Sprays in the evening and 2 Sprays before bedtime. for nasal dryness or congestion. 60 mL 0 11/22/2020 Active Sylvia 3 1200 MG Oral CapsuleIndications: heart health [...] Denosumab 60 MG/ML Subcutaneous Solution Prefilled Syringe (Prolia)Indications :Age-related osteoporosis without current pathological fracture INJECT 60 MG UNDER THE SKIN ONCE FOR 1 DOSE 1 mL 1 07/19/2022 12/15/19 24 Active Additional Information Patient not taking.Reported on 07/30/2023 Metoprolol Succinate ER 50 MG Oral Tablet Extended Release 24 Hour (toPROL XL) TAKE ONE TABLET BY MOUTH EVERY DAY 90 Tablet 3 12/17/2022 01/16/20 24 Active Spironolactone 25 MG Oral Tablet (Aldactone)Indicati ons:Chronic diastolic CHF (congestive heart failure) ([facility]) TAKE ONE TABLET BY MOUTH EVERY MORNING, AND ONE BEFORE BEDTIME 180 Tablet 1 06/30/2023 06/29/20 24 Active Trelegy Ellipta 100-62.5-25 MCG/ACT Aerosol Powder Breath Activated (Fluticasone-Umecli dinium-Vilanterol)I ndications:COPD, group B, by GOLD 2017 classification ([facility]) INHALE ONE PUFF BY MOUTH EVERY MORNING 60 Each 5 07/20/2023 07/19/20 24 Active HYDROcodone-Acetami nophen 5-325 MG Oral TabletIndications:D DD (degenerative disc disease), lumbar Take 1 Tablet by mouth every 8 hours as needed (back). 30 Tablet 0 08/13/2023 Active Furosemide 40 MG Oral Tablet (Lasix)Indications: Chronic diastolic CHF (congestive heart failure) ([facility]) TAKE TWO TABLETS BY MOUTH EVERY MORNING [...] of less than 8.0% ([facility]) inject under the skin 42 units before bedtime 45 mL 1 11/26/2023 Active Doxycycline Hyclate 100 MG Oral Capsule Take 1 Capsule by mouth in the morning and 1 Capsule before bedtime. until gone.. 20 Capsule 0 11/26/2023 Active Atorvastatin Calcium 40 MG Oral Tablet (Lipitor) Take 1 Tablet by mouth in the morning. 90 Tablet 1 12/11/2023 Active Atorvastatin Calcium 40 MG Oral Tablet (Lipitor) TAKE ONE TABLET BY MOUTH EVERY DAY 90 Tablet 2 03/20/2023 12/10/19 24 Discontinu ed(Refill) Hospital, Clinic, or Other Facility Administered Medication Ordered Dose Route Frequency Start Date End Date Status Albuterol Sulfate (Proventil) (5 MG/ML) 0.5% *conc* inhalation solution 2.5 mgIndications:COPD, group B, by GOLD 2017 classification ([facility]),Chronic respiratory failure with hypoxia, on home oxygen therapy ([facility]) 2.5 mg NEBULIZER PRN 11/26/2023 11/25/2024 Acti ve Albuterol Sulfate (Proventil) (2.5 MG/3ML) 0.083% inhalation solution 2.5 mgIndications:COPD, group B, by GOLD 2017 classification ([facility]),Chronic respiratory failure with hypoxia, on home oxygen therapy ([facility]) 2.5 mg NEBULIZER PRN 11/26/2023 11/25/2024 Acti ve documented as of this encounter (statuses as of 12/11/2023) Active Problems Problem Noted Date Diagnosed Date COPD, group B, by GOLD 2017 classification 09/15 Overview: Per COPD GOLD Classification Age-related osteoporosis escobar lock current pathological fracture 02/05/2023 Last Assessment & Plan: Currently on prolia injections Chronic respiratory failure with hypoxia, on home oxygen therapy 10/04/2022 Overview: Wearing 3L continuously Last Assessment & Plan: Wearing 3L continuously Subclinical hypothyroidism 10/04/2022 History of PA (myocardial infarction) 05/31/2022 Type 2 diabetes mellitus [...] 68 11/22/2020 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 11/22/2020 [...] as of this encounter (statuses as of 12/11/2023) Resolved Problems Problem Noted Date Diagnosed Date Resolved Date COPD, severity to be determined 08/19/2022 09/18/2023 Overview: Per COPD GOLD Classification Last Assessment & Plan: "RED FLAG" COPD symptoms: Cough ("I get a different kind of cough than what I' have every day") Wheezing ("You can hear the whistling across the room") Medication Regimen All Classes - COLE Class D - Inhaled Ynxjropxgipjpi-XXMJ-KCEF Combination Inhaler (Trellegy) Remote Patient Monitoring Vendor: [...] as of this encounter (statuses as of 12/11/2023) Immunizations Name Administration Dates Next Due COVID-19, [...] encounter Miscellaneous Notes * Telephone Encounter - Dennis Szymanski, [facility] - 12/11/2023 1:09 PM EDT Signed Prescriptions: Disp Refills Atorvastatin Calcium 40 MG Oral Tablet (Li*90 Tab*1 Sig: Take 1 Tablet by mouth in the morning.Authorizing Provider: EDITH OSUNA User: DENNIS SZYMANSKI * Telephone Encounter - Avinash Carbajal PHARM Tech - 12/10/2023 4:01 PM EDT Did you pend patient's preferred pharmacy and medication before forwarding?yes Pharmacy: [facility] Pending Prescriptions: Disp Refills Atorvastatin Calcium 40 MG Oral Tablet (L*90 Tab*2 Sig: Take 1 Tablet by mouth in the morning. Last Visit: 02/05/2023 (in office), 08/12/2023 (telemedicine) Next Visit: 02/25/2024 If no future appointments scheduled, and last appointment is greater than a year ago, please schedule patient for a follow-up appointment Last date the medication was ordered: 03/20/2023 Is this request for a controlled substance?No Urine Drug Screen:No results found for this or any previous visit. Patient Phone Numbers Labs: Lab Results Component Value Date/Time CREAT 1.4 (H) 02/05/2023 03:00 PM POTASSIUM 4.4 02/05/2023 03:00 PM TSH 4.92 (H) 02/05/2023 03:00 PM TSH 4.99 (H) 02/05/2023 03:00 PM LDLCALC 97 11/14/2020 04:32 AM LDLDIRECT 86 10/04/2022 03:05 PM ALT 16 09/12/2021 02:30 PM HGBA1C 7.8 (H) 02/05/2023 03:00 PM HGBA1C 8.4 (H) 11/14/2020 04:32 AM documented in this encounter Plan of Treatment Upcoming Encounters Date Type Department Care Team (Late st Contact Info) Description 12/16/2023 6:10 PM EDT Pharmacy Pharmacy, [address] [place] [address] [place] [address] 12/23/2023 6:30 AM EDT Anticoagulation Pharmacy [facility] [address] [facility] [place] [address] [facility] [address] [facility] [place] [address] 12/24/2023 4:00 PM EDT [facility] [address] [place] [address] Nette Dior, [place]AV[place] [address] [place] [address] 12/30/2023 2:30 PM EDT Office Visit Pharmacy, [address] [place] [address] [place] [address] 01/07/2024 2:30 PM EDT PulmDiagnostic Pulmonary Function Lab, [facility] [address] [place] [address] [place], [address] [place] [address] 01/12/2024 2:00 PM EDT Office Visit Pulmonary Medicine, [facility] [address] [place] [address] Ariel Wing MD [address] [place] [address] 02/17/2024 2:30 PM EDT Office Visit Cardiology [address] [place] [address] Ulices Phillips PA-C [address] [place] [address] 02/25/2024 2:20 PM EDT Office Visit Family Medicine [address] [place] [phone] Edith Osuna MD [address] [place] [address] [place] [address] 07/26/2024 3:00 PM EST Office Visit Nephrology [address] [place] [address] Sonia Logan MD [address] [place] [address] 08/02/2024 2:30 PM EST Nurse Only Ancillary [address] [place] [address] [place], Nurse Annual Wellness [address] [place] [address] [place] [address] Health Maintenance Due Date Last Done Comments *BISPHONATE OR OTHER ACCEPTABLE MEDICATION NEEDED FOR OSTEOPOROSIS (REFER TO SMARTSET #1146) 02/07/2023 Diabetic Foot Exam 05/31/2023 05/31/2022, 07/31/2021 GFR 08/07/2023 02/05/2023, 09/09, 05/31/2022, Additional history exists HbA1c 08/07/2023 02/05/2023, 05/10, 11/23/2021, Additional history exists CKD PHOS USE SMARTSET 14933 10/04/2023 10/04/2022, 1 09/30/2020 Diabetic Eye Exam 12/07/2023 12/06/2022, , 07/02/2019 CKD HGB USE SMARTSET 73373 02/06/202402/05, 02/05/2023, 10/04/2022, Additional history exists DXA [...] D LEVEL ONCE IN A LIFETIME-USE SMARTSET# 79040 Completed 02/05/2023 Influenza Vaccine (FLU shot) Completed [...] filedocumented as of this encounter Care Teams Communications Technician Relationship Specialty Start Date End Date Edith Osuna MD [address] [place] [address] [place] [address] PCP - General Family Medicine 02/15/21 documented as of this encounter
--- OUTSIDE RECORDS SUMMARY | 2024-05-12 05:21 | External Medical Summary | Summary of Care ---
Author Name Unknown Organization [facility] Address [address] [place] [place] [facility] [place] [address] Phone [phone] Care Team Providers Care Mechanical Design Engineer Name Role Phone Edith Osuna MD Primary Care Prov ider Reason for Visit * Reason Onset Date Comments FYI 11/26/2023 Encounter Details Date Type Department Care Team (Late st Contact Info) Description 11/26/2023 Telephone Pharmacy, [address] [place] [address] [place] [address] Allergies Active Allergy Reactions Criticality Noted Date Comments Abhinav Inhibitors Cough 12/25/2021 Aspirin 02/15/2021 "delgado" her stomach, had a GI bleed in the past Codeine 11/22/2020 Morphine 11/22/2020 Oxycodone 11/22/2020 Nausea, vomiting, chest pain Semaglutide(0.25 Or 0.5mg-Dos) Diarrhea 10/04/2022 Severe documented as of this encounter (statuses as of 11/26/2023) Medications Medication Sig Dispensed Refills Start Date End Date Status Ferrous Sulfate 325 (65 Fe) MG Oral Tablet (Feosol)Indications :anemia Take 1 Tablet by mouth daily with breakfast. 30 Tab 0 11/22/2020 Active Multivitamin Adult Oral TabletIndications:s upplementation Take by mouth 1 Tablet daily . 30 Tab 0 11/22/2020 Active Saline Nasal [place] 0.65 % Nasal SolutionIndications :for nasal dryness or congestion Administer 2 Sprays into each nostril in the morning and 2 Sprays at noon and 2 Sprays in the evening and 2 Sprays before bedtime. for nasal dryness or congestion. 60 mL 0 11/22/2020 Active [place] 3 1200 MG Oral CapsuleIndications: heart health Take by mouth 2 Capsules every night at bedtime . 60 Cap 0 11/22/2020 Active Acetaminophen 325 MG Oral Tablet (Tylenol)Indication s:as needed for pain/fever Take 2 Tablets by mouth every 4 hours as needed for Fever (Temp Greater than ) or Pain, Mild. 100 Tab 0 11/22/2020 Active YEVVOTouch Delica Lancets 30GIndications:Type 2 diabetes mellitus with hemoglobin A1c goal of less than 8.0% ([facility]) Use to test blood sugar 3-4 times a day dx E11.9 400 Each 3 03/13/2021 Active YEVVOTouch Verio In Vitro Strip (Glucose Blood)Indications:T ype 2 diabetes mellitus with hemoglobin A1c goal of less than 8.0% ([facility]) Use to test blood sugar 3-4 times [...] 90 Tablet 3 12/17/2022 01/16/20 24 Active Atorvastatin Calcium 40 MG Oral Tablet (Lipitor) TAKE ONE TABLET BY MOUTH EVERY DAY 90 Tablet 2 03/20/2023 Active Spironolactone 25 MG Oral Tablet (Aldactone)Indicati ons:Chronic diastolic CHF (congestive heart failure) ([facility]) TAKE ONE TABLET BY MOUTH EVERY MORNING, AND ONE BEFORE BEDTIME 180 Tablet 1 06/30/2023 06/29/20 24 Active Trelegy Ellipta 100-62.5-25 MCG/ACT Aerosol Powder Breath Activated (Fluticasone-Umecli dinium-Vilanterol)I ndications:COPD, group B, by GOLD 2017 classification ([facility]) INHALE ONE PUFF BY MOUTH EVERY MORNING [...] before bedtime 45 mL 1 11/26/2023 Active Tresiba FlexTouch 100 UNIT/ML Subcutaneous Solution Pen-injector (Insulin Degludec)Indication s:Type 2 diabetes mellitus with hemoglobin A1c goal of less than 8.0% ([facility]) inject under the skin 42 units before bedtime 45 mL 1 11/24/2023 11/26/19 24 Discontinu ed(Refill) documented as of this encounter (statuses as of 11/26/2023) Active Problems Problem Noted Date Diagnosed Date [...] 68 11/22/2020 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 pectoris 11/22/2020 Last [...] as of this encounter (statuses as of 11/26/2023) Resolved Problems Problem Noted Date Diagnosed Date Resolved Date COPD, severity to be determined 08/19/2022 09/18/2023 Overview: Per COPD GOLD Classification Last Assessment & Plan: "RED FLAG" COPD symptoms: Cough ("I get a different kind of cough than what I' have every day") Wheezing ("You can hear the whistling across the room") Medication Regimen All Classes - COLE Class D - Inhaled Fwcydgfszpggve-OISO-OWMO Combination Inhaler (Trellegy) Remote Patient Monitoring Vendor: No Connected RPM Device(s): No current devices Self-Management plan Other/Additional Comments: rescue inhaler, contact [facility] Exacerbation plan Chest Xray Additional Comments: Recent [...] as of this encounter (statuses as of 11/26/2023) Immunizations Name Administration Dates Next Due COVID-19, [...] Telephone Encounter - Kathie Peters RPh - 11/26/2023 2:16 PM EDT Patient Phone Numbers Per chart review Rx recently sent to local pharmacy. Attempted to contact patient, no answer. New prescription sent to [facility] pharmacy. Kathie Peters RPh, PharmD Clinical Pharmacist - Strain Technician [facility] 11/26/2023, 2:17 PM Ph.[phone] * Telephone Encounter - Arlette Mckeon PHARM Tech - 11/26/2023 12:18 PM EDT Caller's name: ciara Preferred call back number(OFFICE NUMBER FOR ): [phone] Reason for call: please call next dose of tresiba to [facility] mail order Thank you, Arlette Mckeon [employer] [employer] [facility] ([facility]) (Formerly Telepharm[facility]) 11/26/2023,12:18 PM documented in this encounter Plan of Treatment Upcoming Encounters Date Type Department Care Team (Late st Contact Info) Description 12/02/2023 2:30 PM EDT Office Visit Pharmacy, [address] [place] [address] [place] [address] 12/23/2023 6:30 AM EDT Anticoagulation Pharmacy Call Center [phone] [place] [address] [facility] [address] [facility] [place] [address] 12/24/2023 4:00 PM EDT [facility] [address] [place] [address] Nette Dior, RN [address] [place] [address] 02/17/2024 2:30 PM EDT Office Visit Cardiology [address] [place] [address] Ulices Phillips PAHusseinC [facility] [address] 02/25/2024 2:20 PM EDT Office Visit Family Medicine [address] [place] [phone] Edith Osuna MD [address] [place] [address] [place] [address] 07/26/2024 3:00 PM EST Office Visit Nephrology [address] [place] [address] Sonia Logan MD [address] [facility] [place] [address] 08/02/2024 2:30 PM EST Nurse Only Ancillary [address] [place] [address] [place], Nurse [address] [place] [address] Health Maintenance Due Date Last Done Comments *BISPHONATE OR OTHER ACCEPTABLE MEDICATION NEEDED FOR OSTEOPOROSIS (REFER TO SMARTSET #1146) 02/07/2023 Diabetic Foot Exam 05/31/2023 05/31/2022, 07/31/2021 GFR 08/07/2023 02/05/2023, 09/09, 05/31/2022, Additional history exists HbA1c 08/07/2023 02/05/2023, 05/10, 11/23/2021, Additional history exists CKD PHOS USE SMARTSET 04807 10/04/2023 10/04/2022, 1 09/30/2020 Diabetic Eye Exam 12/07/2023 12/06/2022, , 07/02/2019 CKD HGB USE SMARTSET 47688 02/06/202402/05, 02/05/2023, 10/04/2022, Additional history exists DXA Scan 07/03/2024 07/03/2022, 07/03/2022 Depression Screening 07/30/2024 07/30/2023 Albumin/Creatinine Ratio 08/29/2024 023, 05/31/2022, 08/28/2021, Additional history exists O2 ASSESSMENT COMPLETED IN PAST YEAR FOR COPD 11/19/2024 11/20/2023 DTaP,Tdap,and Td Vaccines (2 - Td or Tdap) 11/24/2031 11/23/2021 (Not indicated) Zoster Vaccines Discontinued 03/20/2021 Pneumococcal Vaccine: 65+ Years Completed 07/31/2021, 02/15/2021 COVID-19 Vaccine Discontinued 08/14/2021, 01/20/2021 VITAMIN D LEVEL ONCE IN A LIFETIME-USE SMARTSET# 51964 Completed 02/05/2023 Influenza Vaccine (FLU shot) Completed [...] A1c goal of less than 8.0% (HCC) documented in this encounter Care Teams Mechanical Design Engineer Relationship Specialty Start Date End Date Edith Osuna MD [address] [place] [address] [place] [phone] PCP - General Family Medicine 02/15/21 documented as of this encounter
--- OUTSIDE RECORDS SUMMARY | 2024-05-12 05:21 | External Medical Summary | Summary of Care ---
Author Name Unknown Organization [facility] Address [address] [place] [address] Phone [phone] Care Team Providers Care Welder Gas Automatic Name Role Phone Edith Osuna MD Primary Care Prov ider Encounter Details Date Type Department Care Team (Late st Contact Info) Description 11/18/2023 Orders Only Family Medicine [address] [phone] Edith Osuna MD [address] [place] [address] [place] [address] Allergies Active Allergy Reactions Criticality Noted Date Comments Abhinav Inhibitors Cough 12/25/2021 Aspirin 02/15/2021 "delgado" her stomach, had a GI bleed in the past Codeine 11/22/2020 Morphine 11/22/2020 Oxycodone 11/22/2020 Nausea, vomiting, chest pain Semaglutide(0.25 Or 0.5mg-Dos) Diarrhea 10/04/2022 Severe documented as of this encounter (statuses as of 11/18/2023) Medications Medication Sig Dispensed Refills Start Date End Date Status Ferrous Sulfate 325 (65 Fe) MG Oral Tablet (Feosol)Indications: anemia Take 1 Tablet by mouth daily with breakfast. 30 Tab 0 11/22/2020 Active Multivitamin Adult Oral TabletIndications:venegas pplementation Take by mouth 1 Tablet daily . 30 Tab 0 11/22/2020 Active Saline Nasal [place] 0.65 % Nasal SolutionIndications: for nasal dryness or congestion Administer 2 Sprays into each nostril in the morning and 2 Sprays at noon and 2 Sprays in the evening and 2 Sprays before bedtime. for nasal dryness or congestion. 60 mL 0 11/22/2020 Active Epps 3 1200 MG Oral CapsuleIndications:h eart health [...] hemoglobin A1c goal of less than 8.0% ([facility]) Use to test blood sugar 3-4 times a day dx E11.9 400 Each 3 03/13/2021 Active OneTouch Verio In Vitro Strip (Glucose Blood)Indications:Ty pe 2 diabetes mellitus with hemoglobin A1c goal of less than 8.0% ([facility]) Use to test blood sugar 3-4 times a day dx e11.9 400 Strip 3 03/13/2021 Active FreeStyle Robbin 2 Sensor Use as directed. 0 Active Magnesium Oxide 400 (240 Mg) MG Oral TabletIndications:Ch ronic diastolic CHF (congestive heart failure) ([facility]) Take 1 Tab by mouth daily. 28 Tab 5 04/19/2021 Active oxygen IN GAS Use 2 L/min(Oxygen) as directed continuous. 0 Active Insulin Syringes (Disposable) U-100 1 MLIndications:Type 2 diabetes mellitus with hemoglobin A1c goal of less than 8.0% ([facility]) Twice a day 200 Each 1 [...] (Aldactone)Indicatio ns:Chronic diastolic CHF (congestive heart failure) ([facility]) TAKE ONE TABLET BY MOUTH EVERY MORNING, AND ONE BEFORE BEDTIME 180 Tablet 1 06/30/2023 4 Active Trelegy Ellipta 100-62.5-25 MCG/ACT Aerosol Powder Breath Activated (Fluticasone-Umeclid inium-Vilanterol)Ind ications:COPD, group B, by GOLD 2017 classification ([facility]) INHALE ONE PUFF BY MOUTH EVERY MORNING 60 Each 5 07/20/2023 4 Active HYDROcodone-Acetamin ophen 5-325 MG Oral TabletIndications:DD D (degenerative disc disease), lumbar Take 1 Tablet by mouth every 8 hours as needed (back). 30 Tablet 0 08/13/2023 Active Furosemide 40 MG Oral Tablet (Lasix)Indications:C hronic diastolic CHF (congestive heart failure) ([facility]) TAKE TWO TABLETS BY MOUTH EVERY [...] before dinner. 15 mL 3 11/04/2023 Active Tresiba FlexTouch 100 UNIT/ML Subcutaneous Solution Pen-injector (Insulin Degludec)Indications :Type 2 diabetes mellitus with hemoglobin A1c goal of less than 8.0% ([facility]) Inject 42 Units under the skin every evening. 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 11/22/2020 Last [...] as of this encounter (statuses as of 11/18/2023) Resolved Problems Problem Noted Date Diagnosed Date Resolved Date COPD, severity to be determined 08/19/2022 09/18/2023 Overview: Per COPD GOLD Classification Last Assessment & Plan: "RED FLAG" COPD symptoms: Cough ("I get a different kind of cough than what I' have every day") Wheezing ("You can hear the whistling across the room") Medication Regimen All Classes - COLE Class D - Inhaled Hqesickgzocuur-PHCF-[id number] Combination Inhaler (Trellegy) Remote Patient Monitoring Vendor: No Connected RPM Device(s): No current devices Self-Management plan Other/Additional Comments: rescue inhaler, contact [facility] Exacerbation plan Chest Xray Additional Comments: Recent admission for exacerbation with RSV Finishing prednisone taper Using flutter device Chronic kidney disease, stage 3b 09/17/2021 08/22/2023 Overview: Per CKD protocol Chronic obstructive pulmonary disease 07/31/2021 08/22/2022 Overview: Per COPD GOLD Classification Hypertensive heart and kidne y disease with chronic diastolic congestive heart failure and stage 3a chronic kidney disease 02/15/2021 1202/2021 Overview: Per CKD protocol Hypoxia 11/22/2020 09/11/2023 [...] as of this encounter (statuses as of 11/18/2023) Immunizations Name Administration Dates Next Due COVID-19, [...] Care Team (Late st Contact Info) Description 11/19/2023 1:00 PM EDT Office Visit Pulmonary Medicine, [facility] [address] [place] [address] Ariel Wing MD [address] [place] [address] 11/20/2023 3:00 PM EDT Office Visit Cardiology, [facility] [address] [place] [address] Kt Tran DO [address] [place] [address] 11/25/2023 6:30 AM EDT [facility] Call Center [address] [facility] [place] [address] [facility] 58 [address] [facility] [place] [address] 12/02/2023 2:30 PM EDT Office Visit Pharmacy, [address] [place] [address] [place] [address] 12/24/2023 4:00 PM EDT [facility] Visit [facility], [facility] [address] [place] [address] [address] Nette Dior RN [address] [place] [address] 02/25/2024 2:20 PM EDT Office Visit Family Medicine [address] [place] [phone] Edith Osuna MD [address] [place] [address] [place] [address] 07/30/2024 3:00 PM EST Office Visit Nephrology [address] [place] [address] Sonia Logan MD [address] [facility] [place] [address] 08/02/2024 2:30 PM EST Nurse Only Ancillary [address] [place] [address] [place], Nurse Annual Wellness [address] [place] [address] [place] [address] Health Maintenance Due Date Last Done Comments *BISPHONATE OR OTHER ACCEPTABLE MEDICATION NEEDED FOR OSTEOPOROSIS (REFER TO SMARTSET #1146) 02/07/2023 Diabetic Foot Exam 05/31/2023 05/31/2022, 07/31/2021 GFR 08/07/2023 02/05/2023, 09/09, 05/31/2022, Additional history exists HbA1c 08/07/2023 02/05/2023, 05/10, 11/23/2021, Additional history exists CKD PHOS USE SMARTSET 67821 10/04/2023 10/04/2022, 1 09/30/2020 Diabetic Eye Exam 12/07/2023 12/06/2022, , 07/02/2019 CKD HGB USE SMARTSET 57223 02/06/202402/05, 02/05/2023, 10/04/2022, Additional history exists DXA Scan 07/03/2024 07/03/2022, 07/03/2022 Depression Screening 07/30/2024 07/30/2023 Albumin/Creatinine Ratio 08/29/2024 023, 05/31/2022, 08/28/2021, Additional history exists O2 ASSESSMENT COMPLETED IN PAST YEAR FOR COPD 11/09/2024 11/10/2023 DTaP,Tdap,and Td Vaccines (2 - Td or Tdap) 11/24/2031 11/23/2021 (Not indicated) Zoster Vaccines Discontinued 03/20/2021 Pneumococcal Vaccine: 65+ Years Completed 07/31/2021, 02/15/2021 COVID-19 Vaccine Discontinued 08/14/2021, 01/20/2021 VITAMIN D LEVEL ONCE IN A LIFETIME-USE SMARTSET# 25258 Completed 02/05/2023 Influenza Vaccine (FLU shot) Completed [...] Name Priority Date/Time Associated Diagnosis Comments OUTSIDE LAB-CORONAVIRUS (COVID-19) Routine 09/01/2023 documented in this encounter Results * OUTSIDE LAB-CORONAVIRUS (COVID-19) (09/01/2023) [id number] E LAB NEGATIVE NEGATIVE OUTSIDE LAB (SEE SCANNED REPORT) 09/01/2023 History Per Patient LABORATORY OUTSIDE LAB (SEE SCANNED REPORT) documented in this encounter Care Teams Welder Gas Automatic Relationship Specialty Start Date End Date Edith Osuna MD [address] [place] [address] [place] [phone] PCP - General Family Medicine 02/15/21 documented as of this encounter
--- OUTSIDE RECORDS SUMMARY | 2024-05-12 05:21 | External Medical Summary | Summary of Care ---
Author Name Unknown Organization [facility] Address [address] [place] [facility] [place] [place] [address] Phone [phone] Care Team Providers Care Fitting Room Inspector Name Role Phone Edith Osuna MD Primary Care Prov ider Reason for Visit * Reason Onset Date Comments Appointment 10/24/2023 Encounter Details Date Type Department Care Team (Late st Contact Info) Description 10/24/2023 Telephone Cardiology, [facility] [address] [facility] [place] [address] Wendy Yen PA-C [address] [place] [address] Appointment Allergies Active Allergy Reactions Criticality Noted Date Comments Abhinav Inhibitors Cough 12/25/2021 Aspirin 02/15/2021 "delgado" her stomach, had a GI bleed in the past Codeine 11/22/2020 Morphine 11/22/2020 Oxycodone 11/22/2020 Nausea, vomiting, chest pain Semaglutide(0.25 Or 0.5mg-Dos) Diarrhea 10/04/2022 Severe documented as of this encounter (statuses as of 11/24/2023) Medications Medication Sig Dispensed Refills Start Date End Date Status Ferrous Sulfate 325 (65 Fe) MG Oral Tablet (Feosol)Indication s:anemia Take 1 Tablet by mouth daily with breakfast. 30 Tab 0 11/23/19 21 Active Multivitamin Adult Oral TabletIndications: supplementation Take by mouth 1 Tablet daily . 30 Tab 0 11/23/19 21 Active Saline Nasal [place] 0.65 % Nasal SolutionIndication s:for nasal dryness or congestion Administer 2 Sprays into each nostril in the morning and 2 Sprays at noon and 2 Sprays in the evening and 2 Sprays before bedtime. for nasal dryness or congestion. 60 mL 0 11/23/19 21 Active [place] 3 1200 MG Oral CapsuleIndications :heart health [...] hemoglobin A1c goal of less than 8.0% ([facility]) Use to test blood sugar 3-4 times a day dx E11.9 400 Each 3 03/13/20 21 Active OneTouch Verio In Vitro Strip (Glucose Blood)Indications: Type 2 diabetes mellitus with hemoglobin A1c goal of less than 8.0% ([facility]) Use to test blood sugar [...] hemoglobin A1c goal of less than 8.0% ([facility]) Twice a day 200 Each 1 11/24/19 [...] FOR 1 DOSE 1 mL 1 07/19/20 024 Active Additional Information Patient not taking.Reported on 07/30/2023 Metoprolol Succinate ER 50 MG Oral Tablet Extended Release 24 Hour (toPROL XL) TAKE ONE TABLET BY MOUTH EVERY DAY 90 Tablet 3 12/18/19 23 Active Atorvastatin Calcium 40 MG Oral Tablet (Lipitor) TAKE ONE TABLET BY MOUTH EVERY DAY 90 Tablet 2 03/20/20 23 Active Spironolactone 25 MG Oral Tablet (Aldactone)Indicat ions:Chronic diastolic CHF (congestive heart failure) ([facility]) TAKE ONE TABLET BY MOUTH EVERY MORNING, AND ONE BEFORE BEDTIME 180 Tablet 1 06/30/20 23 024 Active Trelegy Ellipta 100-62.5-25 MCG/ACT Aerosol Powder Breath Activated (Fluticasone-Umecl idinium-Vilanterol )Indications:COPD, group B, by GOLD 2017 classification ([facility]) INHALE ONE PUFF BY MOUTH EVERY MORNING 60 Each 5 07/20/20 23 024 Active HYDROcodone-Acetam inophen 5-325 MG Oral TabletIndications: DDD (degenerative disc disease), lumbar Take 1 Tablet by mouth every 8 hours as needed (back). 30 Tablet 0 08/13/20 23 Active Furosemide 40 MG Oral Tablet (Lasix)Indications :Chronic diastolic CHF (congestive heart failure) ([facility]) TAKE TWO TABLETS BY MOUTH [...] directed by anticoag clinic 135 Tablet 3 09/24/19 24 Active FLUoxetine HCl 20 MG Oral Capsule (PROzac)Indication s:Moderate episode of recurrent major depressive disorder (HCC) TAKE ONE CAPSULE BY MOUTH EVERY DAY 90 Capsule 1 09/25/19 24 025 Active BD Pen Needle Stephanie U/F 32G [...] Tablet 1 03/17/20 23 024 Discontinued(Re fill) Tresiba FlexTouch 100 UNIT/ML Subcutaneous Solution Pen-injector (Insulin Degludec)Indicatio ns:Type 2 diabetes mellitus with hemoglobin A1c goal of less than 8.0% ([facility]) INJECT UNDER THE SKIN 42 UNITS BEFORE BEDTIME 45 mL 0 05/06/20 23 024 Discontinued Insulin Aspart 100 UNIT/ML Injection Solution (NovoLOG)Indicatio ns:Type 2 diabetes mellitus with stage 3b chronic kidney disease, with long-term current use of insulin ([facility]) inject 10 units with breakfast and 10 units with supper 20 mL 1 10/07/19 24 024 Discontinued documented as of this encounter (statuses as of 11/24/2023) Active Problems Problem Noted Date Diagnosed Date COPD, group B, by GOLD 2017 classification 09/15 Overview: Per COPD GOLD Classification Age-related osteoporosis wit hout current pathological fracture 02/05/2023 Last Assessment & Plan: Currently on prolia injections Chronic respiratory failure with hypoxia, on home oxygen therapy 10/04/2022 Overview: Wearing 3L continuously Last Assessment & Plan: Wearing 3L continuously Subclinical hypothyroidism 10/04/2022 History of MD (myocardial infarction) 05/31/2022 Type 2 diabetes mellitus [...] as of this encounter (statuses as of 11/24/2023) Resolved Problems Problem Noted Date Diagnosed Date Resolved Date COPD, severity to be determined 08/19/2022 09/18/2023 Overview: Per COPD GOLD Classification Last Assessment & Plan: "RED FLAG" COPD symptoms: Cough ("I get a different kind of cough than what I' have every day") Wheezing ("You can hear the whistling across the room") Medication Regimen All Classes - OCLE Class D - Inhaled Xuaasyijaymfek-ETUW-MBCW Combination Inhaler ([facility]) Remote Patient Monitoring Vendor: No Connected RPM Device(s): No current devices Self-Management plan Other/Additional Comments: rescue inhaler, contact [facility] Exacerbation plan Chest Xray Additional [...] as of this encounter (statuses as of 11/24/2023) Immunizations Name Administration Dates Next Due COVID-19, [...] encounter Miscellaneous Notes * Telephone Encounter - Rafaela Cole LPN - 10/24/2023 2:32 PM EST Pt requires in person appointment Pt was not seen by Wendy Yen PA-C on 10/24/23 Pt is hospital discharge and has multiple complaints. documented in this encounter Plan of Treatment Upcoming Encounters Date Type Department Care Team (Late st Contact Info) Description 11/26/2023 2:20 PM EDT Office Visit Pulmonary Medicine, [facility] [address] [facility] [place] [address] Ariel Wing MD [address] [facility] [place] [address] 12/02/2023 2:30 PM EDT Office Visit Pharmacy, [address] [place] [address] [place] [address] 12/23/2023 6:30 AM EDT Anticoagulation Pharmacy Call Center [address] [place] [address] [facility] 58 60 [facility] [place] [address] 12/24/2023 4:00 PM EDT Home Visit [facility], [facility] [address] [place] [address] Nette Dior, RN [address] [place] [address] 02/17/2024 2:30 PM EDT Office Visit Cardiology [address] [place] [address] Ulices Phillips PA-C [address] [place] [address] 02/25/2024 2:20 PM EDT Office Visit Family Medicine [address] [place] [phone] Edith Osuna MD [address] [place] [address] [place] [address] 07/26/2024 3:00 PM EST Office Visit Nephrology [address] [place] [address] Sonia Logan MD [address] [place] [address] 08/02/2024 2:30 PM EST Nurse Only Ancillary [address] [place] [address] [place], Nurse Annual Wellness [address] [place] [address] [place] [address] Health Maintenance Due Date Last Done Comments *BISPHONATE OR OTHER ACCEPTABLE MEDICATION NEEDED FOR OSTEOPOROSIS (REFER TO SMARTSET #1146) 02/07/2023 Diabetic Foot Exam 05/31/2023 05/31/2022, 07/31/2021 GFR 08/07/2023 02/05/2023, 09/09, 05/31/2022, Additional history exists HbA1c 08/07/2023 02/05/2023, 092 11/2021, 11/23/2021, Additional history exists CKD PHOS USE SMARTSET 62468 10/04/2023 10/04/2022, 1 09/30/2020 Diabetic Eye Exam 12/07/2023 12/06/2022, , 07/02/2019 CKD HGB USE SMARTSET 14781 02/06/202402/05, 02/05/2023, 10/04/2022, Additional history exists DXA [...] D LEVEL ONCE IN A LIFETIME-USE SMARTSET# 16500 Completed 02/05/2023 Influenza Vaccine (FLU shot) Completed [...] filedocumented as of this encounter Care Teams Fitting Room Inspector Relationship Specialty Start Date End Date Edith Osuna MD [address] [place] [address] [place] [address] PCP - General Family Medicine 02/15/21 documented as of this encounter
--- OUTSIDE RECORDS SUMMARY | 2024-05-12 05:21 | External Medical Summary | Summary of Care ---
Author Name Unknown Organization [facility] Address [address] [place] [address] Phone [phone] Care Team Providers Care Extractor Puller Name Role Phone Edith Osuna MD Primary Care Prov ider Reason for Visit * Reason Comments NEW PATIENT New pulm patient. * Opinion/Recommendation - Change # of Visits to 1 (Within 30 days (routine)) - Pending Review Specialty Diagnoses / Procedures Referred By Contac t Referred To Contact Pulmonary Diseases / Pulmonary Diagnoses COPD, group B, by GOLD 2017 classification (HCC) Chronic respiratory failure with hypoxia, on home oxygen therapy (HCC) Edith Osuna MD [address] [place] [address] [place] [address] Referral ID Status Reason Start Date Expiration Date Visits Requested Visits Authorized [id number] Pending Review Specialty Services Required [phone] Encounter Details Date Type Department Care Team (Latest Contact Info) Description 11/26/2023 2:20 PM EDT Office Visit Pulmonary Medicine, [facility] [address] [facility] [place] [address] Ariel Wing MD [address] [place] [phone] COPD, group B, by GOLD 2017 classification (HCC)*; Chronic respiratory failure with hypoxia, on home oxygen therapy (HCC); Type 2 diabetes mellitus with stage 3b chronic kidney disease, with long-term current use of insulin ([facility]); Paroxysmal atrial fibrillation ([facility]); Obesity, morbid (more than 100 lbs over ideal weight or BMI > 40) ([facility]) Allergies Active Allergy Reactions Criticality Noted Date [...] 30 Tab 0 11/22/2020 Active Saline Nasal [place] 0.65 % Nasal SolutionIndications: for nasal dryness or congestion Administer 2 Sprays into each nostril in the morning and 2 Sprays at noon and 2 Sprays in the evening and 2 Sprays before bedtime. for nasal dryness or congestion. 60 mL 0 11/22/2020 Active [place] 3 1200 MG Oral CapsuleIndications: [facility] [...] CHF (congestive heart failure) ([facility]) Take 1 Tab by mouth daily. 28 Tab 5 04/19/2021 Active oxygen IN GAS Use 2 L/min(Oxygen) as directed continuous. 0 Active Insulin Syringes (Disposable) U-100 1 MLIndications:Type 2 diabetes mellitus with hemoglobin A1c goal of less than 8.0% ([facility]) Twice a day 200 Each 1 11/23/2021 [...] (congestive heart failure) ([facility]) TAKE TWO TABLETS BY MOUTH EVERY MORNING [...] all other days or as directed by [facility] 135 Tablet 3 09/24/2023 Active FLUoxetine HCl 20 MG Oral Capsule (PROzac)Indications: Moderate episode of recurrent major depressive disorder ([facility]) TAKE ONE CAPSULE BY MOUTH EVERY DAY [...] B, by GOLD 2017 classification ([facility]),Chronic respiratory failure with hypoxia, on home oxygen therapy ([facility]) 2.5 mg NEBULIZER PRN 11/26/2023 11/25/2024 Acti ve Albuterol Sulfate (Proventil) (2.5 MG/3ML) 0.083% inhalation solution 2.5 mgIndications:COPD, group B, by GOLD 2017 classification ([facility]),Chronic respiratory failure with hypoxia, on home oxygen therapy ([facility]) 2.5 mg NEBULIZER PRN 11/26/2023 11/25/2024 Acti [...] 3L continuously Subclinical hypothyroidism 10/04/2022 History of MT (myocardial infarction) 05/31/2022 Type 2 diabetes mellitus [...] Classes - COLE Class D - Inhaled Fctceyhwxskdyq-WXMP-HDUX Combination Inhaler (Damonllegy) Remote Patient Monitoring Vendor: No Connected RPM Device(s): No current devices Self-Management plan Other/Additional Comments: rescue inhaler, contact [facility] Exacerbation plan Chest Xray Additional Comments: Recent [...] 100mcg/0.5mg (Moderna) 08/14/2021 Covid-19 Ad26, Single Dose (Kingnet/J&J) 021 Pneumococcal Conjugate Vacc, 13 Valent (Prevnar) [...] Sign Reading Time Taken Comments Blood Pressure 116/62 11/26/2023 2:29 PM EDT Pulse - - Temperature 36.8 C (98.3 F) 11/26/2023 2:29 PM ED T Respiratory Rate 18 11/26/2023 2:29 PM EDT Oxygen Saturation 91% 11/26/2023 2:29 PM EDT ra-rest Inhaled Oxygen Concentration - - Weight 100.7 kg (222 lb) 11/26/2023 2:29 PM EDT Height 160 cm (5' 3") 11/26/2023 2:29 PM EDT Body Mass Index 39.33 11/26/2023 2:29 PM EDT documented in this encounter Progress Notes * Ariel Wing MD - 11/26/2023 2:18 PM EDT 11/26/2023 Pulmonary Medicine, [address] [phone] Fani Josh 1945 female 78 year old Attending Physician Documentation: 78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 Patient describes episodic cough, nasal congestion with purulent sinus drainage, compliant with current bronchodilator regimen including Trelegy and rescue albuterol. Also compliant with home oxygen therapy. Was not able to tolerate CPAP therapy in the past. Sedentary lifestyle. Physical examination significant for class 2 throat, trace oropharyngeal erythema, nasal congestion, adequate air entry, scattered coarse wheezing, basilar rales, irregular cardiac rhythm with prosthetic valve sounds, trace lower extremity edema, nonlateralizing Neuro examination. Importance of compliance with current bronchodilator regimen [...] by GOLD 2017 classification ([facility]) (Primary) Chronic respiratory failure with hypoxia, on home oxygen therapy ([facility]) Type 2 diabetes mellitus with stage 3b chronic kidney disease, with long-term current use of insulin ([facility]) Paroxysmal atrial fibrillation ([facility]) Obesity, morbid (more than 100 lbs over ideal weight or BMI > 40) ([facility]) Gastro-esophageal reflux disease without esophagitis Follow-up: Return in about 6 weeks (around 01/07/2024). 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 HPI: Nursing Notes: Christine Peng LPN 11/26/23 1434 Signed Chief Complaint Patient presents with NEW PATIENT New pulm patient. Interm History/Respiratory Symptoms Cough: yes. Bright yellow Hemoptysis: no Sinus Symptoms: yes drainage. Hospitalizations: 09/01-09/08/23-RSV. ED Trips: . Triggers: perfume, frying food. Nocturnal: sleeps with head elevated CPAP/BiPAP/O2: 3 L at night Flu Vaccine: 2022 Pneumovax: 2020 Prevnar: 2020 COVID 19: x2. Mmrc Cat Question 11/26/2023 2:28 PM EDT - Filed by Patient When do you become breathless? (4) I am too breathless to leave the house or I am breathless when dressing How frequently do you cough? (2) Do you have phlegm in your chest? (1) Is your chest tight? (2) How breathless do you become when walking up a hill or steps? (5) - When I walk up a hill or one flight of stairs I am very breathless How limited are you doing activities at home? (5) - I am very limited doing activities at home How confident are you leaving home with your lung condition? (5) - I am not at all confident leaving my home because of my lung condition How soundly do you sleep? (0) - I sleep soundly How much energy do you have? (4) Total MMRC Score (range: 0 - 4) 4 Total CAT Score (range: 0 - 40) 24 Objective Filed Vitals: 11/26/23 1429 BP: 116/62 Resp: 18 Temp: 36.8 C (98.3 F) TempSrc: Tympanic SpO2: 91% Weight: 100.7 kg (222 lb) Height: 1.6 m (5' 3") Exam: Const: No signs of acute distress [...] were discussed with the patient. HOME MEDICATIONS: Doxycycline Hyclate 100 MG Oral Capsule Tresiba FlexTouch 100 UNIT/ML Subcutaneous Solution Pen-injector (Insulin Degludec) traZODone HCl 50 MG Oral Tablet (Desyrel) BD Pen Needle Stephanie U/F 32G X 4 MM (Insulin Pen Needle) NovoLOG FlexPen 100 UNIT/ML Subcutaneous Solution Pen-injector (insulin aspart) FLUoxetine HCl 20 MG Oral Capsule (PROzac) Warfarin Sodium 2.5 MG Oral Tablet (Coumadin) Clopidogrel Bisulfate 75 MG Oral Tablet (pLAVix) BD Insulin Syringe U/F 31G X 5/16" 0.5 ML (Insulin Syringe-Needle U-100) Ketoconazole 2 % External Cream dilTIAZem HCl ER Coated Beads 120 MG Oral Capsule Extended Release 24 Hour (Cardizem CD) Omeprazole 20 MG Oral Capsule Delayed Release (PriLOSEC) DIURETIC TITRATION PLAN Furosemide 40 MG Oral Tablet (Lasix) HYDROcodone-Acetaminophen 5-325 MG Oral Tablet Trelegy Ellipta 100-62.5-25 MCG/ACT Aerosol Powder Breath Activated (Msnvrljnpfo-Gqjnmgowlwog-Pzasnetpqg) Spironolactone 25 MG Oral Tablet (Aldactone) Atorvastatin Calcium 40 MG Oral Tablet (Lipitor) Metoprolol Succinate ER 50 MG Oral Tablet Extended Release 24 Hour (toPROL XL) Senna 8.6 MG Oral Capsule Calcium Carbonate-Vitamin D 600-200 MG-UNIT Oral Tablet Ocuvite-Lutein Oral Tablet Insulin Syringes (Disposable) U-100 1 ML oxygen IN GAS Magnesium Oxide 400 (240 Mg) MG Oral Tablet FreeStyle Robbin 2 Sensor OneTouch Delica Lancets 30G OneTouch Verio In Vitro Strip (Glucose Blood) Acetaminophen 325 MG Oral Tablet (Tylenol) Multivitamin Adult Oral Tablet [place] 3 1200 MG Oral Capsule Saline Nasal [place] 0.65 % Nasal Solution Potassium Chloride Carly ER 10 MEQ Oral Tablet Extended Release Denosumab 60 MG/ML Subcutaneous Solution Prefilled Syringe (Prolia) Albuterol Sulfate 108 (90 Base) MCG/ACT Inhalation Aerosol Powder Breath Activated Ferrous Sulfate 325 (65 Fe) MG Oral Tablet (Feosol) Albuterol Sulfate (Proventil) (2.5 MG/3ML) 0.083% inhalation [...] or appetite. Past Medical History: Diagnosis Date Heart attack (HCC) 2019 Rheumatic heart disease Past Surgical History: Procedure Laterality Date CARDIAC STENT PLACEMENT, ATHERECTOMY, 1 VESSEL 2019 3 stents placed 2019. Had 1 stent placed prior to that. Total 4 stents. VT APPENDECTOMY VT DELIVERY ONLY 5 c-sections VT CHOLECYSTECTOMY gallbladder 40[place] CORONARY ARTERY BYP W/VEIN & ARTERY GRAFT 1 VEIN VT REPLACEMENT OF MITRAL VALVE 2000 VT TOTAL ABDOMINAL HYSTERECT W/WO RMVL TUBE OVARY Social History Socioeconomic History Marital status: Tobacco Use Smoking status: Former Current packs/day: 0.00 Average packs/day: 1 pack/day for 45.0 years (45.0 ttl pk-yrs) Types: Cigarettes Start date: [birth year]07/1958 Quit date: 09/08/2000 Years since quittin.2 Smokeless tobacco: Never Vaping Use Vaping Use: Never used Substance and Sexual Activity Alcohol use: Not Currently Drug use: Not Currently Social History Narrative >10 yrs Kids 4 lost 3 at Social Determinants of Health Food Insecurity: No Food Insecurity (08/19/2023) Hunger Vital Sign Worried About Running Out of Food in the Last Year: Never true Ran Out of Food in the Last Year: Never true Family History Problem Relation Age of Onset Hypertension Mother 50's Diabetes Mother Hypertension Father 43 stroke Glaucoma Sister Diabetes Sister Cancer Sister 70 colon ca Diabetes Brother Ear Problems Son Ear Problems Son Ear Problems Son Heart Disorder Daughter a fib and pacer Review of patient's allergies indicates: Allergen Reactions Abhinav Inhibitors Cough Aspirin "delgado" her stomach, had a GI bleed in the past Codeine Morphine Oxycodone Nausea, vomiting, chest pain Ozempic (0.25 Or 0.5 Mg-Dose) [Semaglutide(0.25 Or 0.5mg-Dos)] Diarrhea Severe documented in this encounter Nursing Notes * Christine Peng LPN - 11/26/2023 2:31 PM EDT Chief Complaint Patient presents with NEW PATIENT New pulm patient. Interm History/Respiratory Symptoms Cough: yes. Bright yellow Hemoptysis: no Sinus Symptoms: yes drainage. Hospitalizations: 09/01-09/08/23-RSV. ED Trips: . Triggers: perfume, frying food. Nocturnal: sleeps with head elevated CPAP/BiPAP/O2: 3 L at night Flu Vaccine: 2022 Pneumovax: 2020 Prevnar: 2020 COVID 19: x2. Mmrc Cat Question 11/26/2023 2:28 PM EDT - Filed by Patient When do you become breathless? (4) I am too breathless to leave the house or I am breathless when dressing How frequently do you cough? (2) Do you have phlegm in your chest? (1) Is your chest tight? (2) How breathless do you become when walking up a hill or steps? (5) - When I walk up a hill or one flight of stairs I am very breathless How limited are you doing activities at home? (5) - I am very limited doing activities at home How confident are you leaving home with your lung condition? (5) - I am not at all confident leaving my home because of my lung condition How soundly do you sleep? (0) - I sleep soundly How much energy do you have? (4) Total MMRC Score (range: 0 - 4) 4 Total CAT Score (range: 0 - 40) 24 documented in this encounter Plan of Treatment Upcoming Encounters Date Type Department Care Team (Late st Contact Info) Description 12/02/2023 2:30 PM EDT Office Visit Pharmacy, [address] [place] [phone] [place] [phone] 12/23/2023 6:30 AM EDT Anticoagulation Pharmacy Call Center [phone] [place] [phone] [facility], [facility] [address] [place] [phone] 12/24/2023 4:00 PM EDT Home Visit [facility] [place] [address] Nette Dior RN [address] [place] [phone] 01/07/2024 2:30 PM EDT PulmDiagnostic Pulmonary Function Lab, [facility] [address] [place] [address] [place], [address] [place] [address] 01/12/2024 2:00 PM EDT Office Visit Pulmonary Medicine, [facility] [place] [address] Ariel Wing MD [address] [place] [address] 02/17/2024 2:30 PM EDT Office Visit Cardiology [address] [place] [address] Ulices Phillips PAHusseinC [address] [place] [address] 02/25/2024 2:20 PM EDT Office Visit Family Medicine [address] [place] [phone] Edith Osuna MD [address] [place] [address] [place] [address] 07/26/2024 3:00 PM EST Office Visit Nephrology [address] [place] [address] Sonia Logan MD [address] [place] [address] [place] [address] 08/02/2024 2:30 PM EST Nurse Only Ancillary [address] [place] [address] Vinicio, Nurse [address] [place] [address] Scheduled Orders Name Type Priority Associated Diagnoses Orde r Schedule DIFFUSION CAPACITY (DLCO) Procedures Routine COPD, group B, by GOLD 2017 classification ([facility]) Chronic respiratory failure with hypoxia, on home oxygen therapy ([facility]) Expected: 12/03/2023, Expires: 12/26/2024 LUNG VOLUMES (PLETHYSMOGRAPHY) Procedures Routine COPD, group B, by GOLD 2017 classification ([facility]) Chronic respiratory failure with hypoxia, on home oxygen therapy ([facility]) Expected: 12/03/2023, Expires: 12/26/2024 RESPIRATORY MUSCLE PRESSURES (BUGLE PRESSURES) Procedures Routine COPD, group B, by GOLD 2017 classification ([facility]) Chronic respiratory failure with hypoxia, on home oxygen therapy ([facility]) Ordered: 11/26/2023 SPIROMETRY B/A BRONCHODILATOR Procedures Routine COPD, group B, by GOLD 2017 classification ([facility]) Chronic respiratory failure with hypoxia, on home oxygen therapy ([facility]) Expected: 12/03/2023, Expires: 12/26/2024 XR CHEST 2 VIEWS Medical Imaging Routine COPD, group B, by GOLD 2017 classification ([facility]) Chronic respiratory failure with hypoxia, on home oxygen therapy ([facility]) Ordered: 11/26/2023 Health Maintenance Due Date Last Done Comments *BISPHONATE OR OTHER ACCEPTABLE MEDICATION NEEDED FOR OSTEOPOROSIS (REFER TO SMARTSET #1146) 02/07/2023 Diabetic Foot Exam 05/31/2023 05/31/2022, 07/31/2021 GFR 08/07/2023 02/05/2023, 09/09, 05/31/2022, Additional history exists HbA1c 08/07/2023 02/05/2023, 05/10, 11/23/2021, Additional history exists CKD PHOS USE SMARTSET 19418 10/04/2023 10/04/2022, 1 09/30/2020 Diabetic Eye Exam 12/07/2023 12/06/2022, , 07/02/2019 CKD HGB USE SMARTSET 25661 02/06/202402/05, 02/05/2023, 10/04/2022, Additional history exists DXA [...] D LEVEL ONCE IN A LIFETIME-USE SMARTSET# [id number] Completed 02/05/2023 Influenza Vaccine (FLU shot) Completed [...] with hypoxia, on home oxygen therapy (HCC) Type 2 diabetes mellitus with stage 3b chronic kidney disease, with long-term current use of insulin (HCC) Paroxysmal atrial fibrillation (HCC) Atrial fibrillation Obesity, morbid (more than 100 lbs over ideal weight or BMI > 40) (HCC) Morbid obesity documented in this encounter Care Teams Extractor Puller Relationship Specialty Start Date End Date Edith Osuna MD [address] [place] [address] [place] [address] PCP - General Family Medicine 02/15/21 documented as of this encounter
--- OUTSIDE RECORDS SUMMARY | 2024-05-12 05:21 | External Medical Summary | Summary of Care ---
Author Name Unknown Organization [facility] Address [address] [place] [place] [address] Phone [phone] Care Team Providers Care Manager Recruiting Name Role Phone Edith Osuna MD Primary Care Prov ider Reason for Visit * Reason Comments Hospital Follow-Up Encounter Details Date Type Department Care Team (Late st Contact Info) Description 11/20/2023 3:00 PM EDT Office Visit Cardiology, [facility] [address] [facility] [place] [address] Kt Tran DO [address] [place] [address] Cardiac pacemaker in situ*; Sinoatrial node dysfunction (HCC); S/P MVR (mitral valve replacement); Chronic atrial fibrillation (HCC); Hospital discharge follow-up; Chronic diastolic CHF (congestive heart failure) ([facility]) Allergies Active Allergy Reactions Criticality Noted Date Comments Abhinav Inhibitors Cough 12/25/2021 Aspirin 02/15/2021 "delgado" her stomach, had a GI bleed in the past Codeine 11/22/2020 Morphine 11/22/2020 Oxycodone 11/22/2020 Nausea, vomiting, chest pain Semaglutide(0.25 Or 0.5mg-Dos) Diarrhea 10/04/2022 Severe documented as of this encounter (statuses as of 11/20/2023) Medications Medication Sig Dispensed Refills Start Date End Date Status Ferrous Sulfate 325 (65 Fe) MG Oral Tablet (Feosol)Indications: anemia Take 1 Tablet by mouth daily with breakfast. 30 Tab 0 11/22/2020 Active Multivitamin Adult Oral TabletIndications:venegas pplementation Take by mouth 1 Tablet daily . 30 Tab 0 11/22/2020 Active Saline Nasal Tebbetts 0.65 % Nasal SolutionIndications: for nasal dryness or congestion Administer 2 Sprays into each nostril in the morning and 2 Sprays at noon and 2 Sprays in the evening and 2 Sprays before bedtime. for nasal dryness or congestion. 60 mL 0 11/22/2020 Active Surprise 3 1200 MG Oral CapsuleIndications:[facility] Take by mouth 2 Capsules every [...] hemoglobin A1c goal of less than 8.0% ([facility]) Use to test blood sugar 3-4 [...] hemoglobin A1c goal of less than 8.0% ([facility]) Twice a day 200 Each 1 [...] (Aldactone)Indicatio ns:Chronic diastolic CHF (congestive heart failure) ([facility]) TAKE ONE TABLET BY MOUTH EVERY MORNING, AND ONE BEFORE BEDTIME 180 Tablet 1 06/30/2023 4 Active Trelegy Ellipta 100-62.5-25 MCG/ACT Aerosol Powder Breath Activated (Fluticasone-Umeclid inium-Vilanterol)Ind ications:COPD, group B, by GOLD 2017 classification ([facility]) INHALE ONE PUFF BY MOUTH EVERY MORNING 60 Each 5 07/20/2023 4 Active HYDROcodone-Acetamin ophen 5-325 MG Oral TabletIndications:DD D (degenerative disc disease), lumbar Take 1 Tablet by mouth every 8 hours as needed (back). 30 Tablet 0 08/13/2023 Active Furosemide 40 MG Oral Tablet (Lasix)Indications:C hronic diastolic CHF (congestive heart failure) ([facility]) TAKE TWO TABLETS BY MOUTH EVERY [...] hemoglobin A1c goal of less than 8.0% ([facility]) Inject 42 Units under the skin every evening. 45 mL 3 11/04/2023 Active traZODone HCl 50 MG Oral Tablet (Desyrel) TAKE ONE TABLET BY MOUTH EVERY DAY AT BEDTIME 90 Tablet 1 11/18/2023 5 Active documented as of this encounter (statuses as of 11/20/2023) Active Problems Problem Noted Date Diagnosed Date [...] 70 11/22/2020 Coronary artery disease invo lving [place] coronary artery without angina pectoris 11/22/2020 [...] as of this encounter (statuses as of 11/20/2023) Resolved Problems Problem Noted Date Diagnosed Date Resolved Date COPD, severity to be determined 08/19/2022 09/18/2023 Overview: Per COPD GOLD Classification Last Assessment & Plan: "RED FLAG" COPD symptoms: Cough ("I get a different kind of cough than what I' have every day") Wheezing ("You can hear the whistling across the room") Medication Regimen All Classes - COLE Class D - Inhaled Yygkhrererfuds-LQVU-BTHA Combination Inhaler (Damone[employer]) Remote Patient Monitoring Vendor: No Connected RPM Device(s): No current devices Self-Management plan Other/Additional Comments: rescue inhaler, contact [facility] Exacerbation plan Chest Xray Additional [...] as of this encounter (statuses as of 11/20/2023) Immunizations Name Administration Dates Next Due COVID-19, [...] Sign Reading Time Taken Comments Blood Pressure 114/70 11/20/2023 3:12 PM EDT Pulse 70 11/20/2023 3:12 PM EDT Temperature - - Respiratory Rate 18 11/20/2023 3:12 PM EDT Oxygen Saturation 92% 11/20/2023 3:12 PM EDT 02 at 3L/min Inhaled Oxygen Concentration - - Weight 101.6 kg (224 lb) 11/20/2023 3:12 PM EDT Height - - Body Mass Index 39.68 07/30/2023 2:45 PM EST documented in this encounter Progress Notes * Kt Tran, DO - 11/20/2023 3:05 PM EDT Cardiology Outpatient Follow-up Fani Merritt is a 78 year old female who is seen for follow-up of valvular heart disease. HPI: This is a 78-year-old female who is brought here today in a wheelchair. She has a very very complexpast cardiac history which I will try to summarize here. There are several different records scanned in the chart for those interested. The patient has a history rheumatic fever as a child. In the early she had an open commissurotomy of the mitral valve for mitral stenosis. Then in 2000 she had a [place] mechanical valve placed in the mitral position. She has had diabetes since the age of 38 and stopped smoking in 2000. She has chronic kidney disease and is followed by Nephrology. In 1996 she developed angina and had a stent placed in her RCA. Then in 2019 she presented once again with angina and this time received multiple stents in her circumflex and right coronary arteries. Her angina had resolved after that procedure. Other information includes a history of atrial fibrillation and a permanent pacemaker which was last updated in 2016. Her most recent echocardiogram reveals normal LV function with dilatation of the left atrium as well as the right cardiac chambers and evidence of pulmonary hypertension. All the above procedures have been completed at multiple different institutions along the way. At the end of August the patient was admitted to the hospital with an RSV infection. She spent several days in the hospital and was eventually discharged. She is doing much better since her hospital admission. She is now on continuous oxygen. Requires a lot of help at home especially with moving around. Past Medical History: Diagnosis Date Heart attack ([facility]) 2020 Rheumatic heart disease Patient Active Problem List Diagnosis Code Type 2 diabetes mellitus with hemoglobin A1c goal of less than 8.0% ([facility]) E11.9 Obesity, morbid (more than 100 lbs over ideal weight or BMI > 40) ([facility]) E66.01 H/O mitral valve replacement with mechanical valve Z95.2 Dyslipidemia, goal LDL below 70 E78.5 Coronary artery disease involving [place] coronary artery without angina pectoris I25.10 Paroxysmal atrial fibrillation ([facility]) I48.0 Ulnar neuropathy of right upper extremity G56.21 Drug-induced constipation K59.03 Chronic pain syndrome G89.4 DDD (degenerative disc disease), lumbar M51.36 Moderate episode of recurrent major depressive disorder ([facility]) F33.1 Hypokalemia E87.6 Gastro-esophageal reflux disease without esophagitis K21.9 Type 2 diabetes mellitus with stage 3b chronic kidney disease, with long-term current use of insulin ([facility]) E11.22, N18.32, Z79.4 Hypertensive heart and kidney disease with chronic diastolic congestive heart failure and stage 3b chronic kidney disease ([facility]) I13.0, I50.32, N18.32 History of KS (myocardial infarction) I25.2 Chronic respiratory failure with hypoxia, on home oxygen therapy ([facility]) J96.11, Z99.81 Subclinical hypothyroidism E03.8 Age-related osteoporosis without current pathological fracture M81.0 COPD, group B, by GOLD 2017 classification ([facility]) J44.9 Past Surgical History: Procedure Laterality Date CARDIAC STENT PLACEMENT, ATHERECTOMY, 1 VESSEL 2019 3 stents placed 2019. Had 1 stent placed prior to that. Total 4 stents. [place] APPENDECTOMY W[place] DELIVERY ONLY 5 c-sections [place] CHOLECYSTECTOMY [place] 38[place] CORONARY ARTERY BYP W/VEIN & ARTERY GRAFT 1 VEIN [place] REPLACEMENT OF MITRAL VALVE 2000 [place] TOTAL ABDOMINAL HYSTERECT W/WO RMVL TUBE OVARY Family History Problem Relation Age of Onset Hypertension Mother 50's Diabetes Mother Hypertension Father 43 stroke Glaucoma Sister Diabetes Sister Cancer Sister 70 colon ca Diabetes Brother Ear Problems Son Ear Problems Son Ear Problems Son Heart Disorder Daughter a fib and pacer Social History Tobacco Use Smoking status: Former Current packs/day: 0.00 Average packs/day: 1 pack/day for 45.0 years (45.0 ttl pk-yrs) Types: Cigarettes Start date: 02/07/1958 Quit date: 09/08/2000 Years since quittin.2 Smokeless tobacco: Never Vaping Use Vaping Use: Never used Substance Use Topics Alcohol use: Not Currently Drug use: Not Currently Review of patient's allergies indicates: Allergen Reactions [...] daily . 30 Tab 0 Saline Nasal Tebbetts 0.65 % Nasal Solution Administer 2 Sprays into each nostril in the morning and 2Sprays at noon and 2 Sprays in the evening and 2 Sprays before bedtime. for nasal dryness or congestion. 60 mL 0 Surprise 3 1200 MG Oral Capsule Take by [...] in the morning. As needed constipation . Denosumab 60 MG/ML Subcutaneous Solution Prefilled Syringe (Prolia) INJECT 60 MG UNDER THE SKIN ONCE FOR 1 DOSE (Patient not taking: Reported on 07/30/2023) 1 mL 1 Metoprolol Succinate ER 50 MG Oral Tablet Extended Release 24 Hour (toPROL XL) TAKE ONE TABLET BY MOUTH EVERY DAY 90 Tablet 3 Atorvastatin Calcium 40 MG Oral Tablet (Lipitor) TAKE ONE TABLET BY MOUTH EVERY DAY 90 Tablet 2 Spironolactone 25 MG Oral Tablet (Aldactone) TAKE ONE TABLET BY MOUTH EVERY MORNING, AND ONE BEFOREBEDTIME 180 Tablet 1 Trelegy Ellipta 100-62.5-25 MCG/ACT Aerosol Powder Breath Activated (Uomnutsqzad-Xiqusyxfxqey-Qweoifscxc) INHALE ONE PUFF BY MOUTH EVERY MORNING 60 Each 5 HYDROcodone-Acetaminophen 5-325 MG Oral Tablet Take 1 Tablet by mouth every 8 hours as needed (back). 30 Tablet 0 Furosemide 40 MG Oral Tablet (Lasix) TAKE TWO TABLETS BY MOUTH EVERY MORNING 180 Tablet 1 DIURETIC TITRATION PLAN If no improvement on [...] [facility] 135 Tablet 3 FLUoxetine HCl 20 MG Oral Capsule (PROzac) TAKE ONE CAPSULE BY MOUTH EVERY DAY 90 Capsule 1 Potassium Chloride Carly ER 10 MEQ Oral Tablet Extended Release TAKE ONE TABLET BY MOUTH EVERY DAY IN THE MORNING 90 Tablet 0 BD Pen Needle Stephanie U/F 32G X 4 MM (Insulin Pen Needle) Use as directed to inject insulin up to three times daily 300 Each 3 NovoLOG FlexPen 100 UNIT/ML Subcutaneous Solution Pen-injector (insulin aspart) Inject 10 Units under the skin daily before breakfast AND 10 Units daily before dinner. 15 mL 3 Tresiba FlexTouch 100 UNIT/ML Subcutaneous Solution Pen-injector (Insulin Degludec) Inject 42 Unitsunder the skin every evening. 45 mL 3 traZODone HCl 50 MG Oral Tablet (Desyrel) TAKE ONE TABLET BY MOUTH EVERY DAY AT BEDTIME 90 Tablet 1 No current facility-administered medications for this visit. ROS: Review of Systems: See HPI for pertinent positives. All other review of systems is negative. PHYSICAL EXAMINATION BP 114/70 (BP Site: Left Arm, BP Position: Sitting, BP Cuff Size: Regular) Comment (BP Site): lowerarm | Pulse 70 | Resp 18 | Wt 101.6 kg (224 lb) | SpO2 92% Comment: 02 at 3L/min | BMI 39.68 kg/m| BSA 2.12 m General: no acute distress and stated age, the patient is examined in wheelchair Head: normocephalic, no masses, lesions, tenderness or abnormalities Eyes: conjunctiva are pink and non-injected, sclera clear Neck: supple, no adenopathy, no bruits, normal jugular venous pulse, no hepatojugular reflux Chest: normal shape and normal respiratory effort Lungs: clear to auscultation and percussion Cardiac Exam: - regular rate & rhythm, no murmurs gallops or rubs - normal S1, normal S2 Pulses: 2(+) throughout Abdomen: abdomen soft, non-tender, no abnormal masses and no hepatosplenomegaly Musculoskeletal: no gait disturbance, no joint inflammation, no deforming arthritis Extremities: no edema and no cyanosis Neuro: grossly normal exam Laboratory Data Review: 1. History of rheumatic fever and mechanical MVR with a [place] valve 2. Coronary artery diseasewith multiple previous stenting procedures at different institutions the last being March of 2020 3.Atrial fibrillation 4. Permanent pacemaker 5. Chronic right heart failure due to pulmonary hypertension 6. Diabetes and chronic kidney disease 7. Recent RSV infection Impression: 1. History of rheumatic fever and mechanical MVR with a [place] valve 2. Coronary artery diseasewith multiple previous stenting procedures at different institutions the last being March of 2020 3.Atrial fibrillation 4. Permanent pacemaker 5. Chronic right heart failure 6. Diabetes and chronic kidney disease Plan: The patient is medically complex but currently stable. She will continue her current medications and I plan follow-up again in 3 months or earlier if needed. This chart was completed in part utilizing [employer] Speech Voice Recognition Software. Grammatical errors, random word insertions, prounoun errors, and incomplete sentences are an occasional consequence of this system due to software limitations, ambient noise, and hardware issues. Any formal questions or concerns about the content, text, or information contained within the body of this dictation should be directly addressed to the provider for clarification. I spent a total of 40-54 minutes (exact time 43 mins) on the date of service in preparation, delivery, and documentation of the care provided to Fani Merritt excluding any time spent in the performance of separately billed services. Kt Tran DO Cardiology, [place] [id number] 11/20/2023 documented in this encounter Nursing Notes * Carlos Norris, RN - 11/20/2023 3:11 PM EDT Examination Room: room 16 Name: Fani Merritt Date of : (1945). Reason for Visit: for hospital discharge follow up Interim Hospitalization(s): admitted to [facility] on 09/02/2023 Problems/Concerns: denies Chest Pain/SOB: always SOB has COPD on 02 3L/min [facility] Discussed: Yes My [...] personnel. Patient voiced full comprehension of instructions. Room documented in this encounter Plan of Treatment Upcoming Encounters Date Type Department Care Team (Late st Contact Info) Description 11/25/2023 6:30 AM EDT Anticoagulation Pharmacy [facility] [address] [facility] [place] [address] [facility] 58 [address] [facility] [place] [address] 11/26/2023 2:20 PM EDT Office Visit Pulmonary Medicine, [facility] [address] [place] [address] Ariel Wing MD [address] [facility] [place] [address] 12/02/2023 2:30 PM EDT Office Visit Pharmacy, [address] [place] [address] [place] [address] 12/24/2023 4:00 PM EDT [facility] [address] [place] [address] [place], [place] [address] [place] [address] 02/17/2024 2:30 PM EDT Office Visit Cardiology [address] [place] [address] Ulices Phillips PA-C [address] [place] [address] 02/25/2024 2:20 PM EDT Office Visit Family Medicine [address] [place] [phone] Edith Osuna MD [address] [place] [address] [place] [address] 07/26/2024 3:00 PM EST Office Visit Nephrology [address] [place] [address] Sonia Logan MD [address] [place] [address] 08/02/2024 2:30 PM EST Nurse Only Ancillary [address] [place] [address] [place], Nurse Annual Wellness [address] [place] [address] [place] [address] Health Maintenance Due Date Last Done Comments *BISPHONATE OR OTHER ACCEPTABLE MEDICATION NEEDED FOR OSTEOPOROSIS (REFER TO SMARTSET #1146) 02/07/2023 Diabetic Foot Exam 05/31/2023 05/31/2022, 07/31/2021 GFR 08/07/2023 02/05/2023, 09/09, 05/31/2022, Additional history exists HbA1c 08/07/2023 02/05/2023, 05/10, 11/23/2021, Additional history exists CKD PHOS USE SMARTSET 00072 10/04/2023 10/04/2022, 1 09/30/2020 Diabetic Eye Exam 12/07/2023 12/06/2022, , 07/02/2019 CKD HGB USE SMARTSET 62573 02/06/202402/05, 02/05/2023, 10/04/2022, Additional history exists DXA [...] D LEVEL ONCE IN A LIFETIME-USE SMARTSET# 98396 Completed 02/05/2023 Influenza Vaccine (FLU shot) Completed [...] as of this encounter Visit Diagnoses Diagnosis Cardiac pacemaker in situ- Primary Sinoatrial node dysfunction (HCC) Sinoatrial node dysfunction S/P MVR (mitral valve replacement) Heart valve replaced by other means Chronic atrial fibrillation (HCC) Atrial fibrillation Hospital discharge follow-up Other follow-up examination Chronic diastolic CHF (congestive heart failure) (HCC) Chronic diastolic heart failure documented in this encounter Care Teams Manager Recruiting Relationship Specialty Start Date End Date Edith sOuna MD [address] [place] [address] [place] [phone] PCP - General Family Medicine 02/15/21 documented as of this encounter
--- OUTSIDE RECORDS SUMMARY | 2024-05-12 05:21 | External Medical Summary | Summary of Care ---
Author Name Unknown Organization [facility] Address [address] [facility] [place] [address] Phone [phone] Care Team Providers Care Pantograph I Engraver Name Role Phone Edith Osuna MD Primary Care Prov ider Reason for Visit * Reason Comments Dosage Adjustment Via Phone (anticoag Cl inic) Encounter Details Date Type Department Care Team (Latest Contact Info) Description 11/24/2023 6:30 AM EDT Anticoagulation Pharmacy Call Center [address] [place] [address] [facility] [address] [place] [address] H/O mitral valve replacement with mechanical valve*; [...] 30 Tab 0 11/22/2020 Active Saline Nasal Antoine 0.65 % Nasal SolutionIndications: for nasal dryness or congestion Administer 2 Sprays into each nostril in the morning and 2 Sprays at noon and 2 Sprays in the evening and 2 Sprays before bedtime. for nasal dryness or congestion. 60 mL 0 11/22/2020 Active [place] 3 1200 MG Oral CapsuleIndications:h e[facility] health [...] diastolic CHF (congestive heart failure) ([facility]) TAKE ONE TABLET BY MOUTH EVERY MORNING, AND ONE BEFORE BEDTIME 180 Tablet 1 06/30/2023 4 Active Trelegy Ellipta 100-62.5-25 MCG/ACT Aerosol Powder Breath Activated (Fluticasone-Umeclid inium-Vilanterol)Ind ications:COPD, group B, by GOLD 2017 classification ([facility]) INHALE ONE PUFF BY MOUTH EVERY MORNING 60 Each 5 07/20/2023 4 Active HYDROcodone-Acetamin ophen 5-325 MG Oral TabletIndications:DD D (degenerative disc disease), lumbar Take 1 Tablet by mouth every 8 hours as needed (back). 30 Tablet 0 08/13/2023 Active Furosemide 40 MG Oral Tablet (Lasix)Indications:C hronic diastolic CHF (congestive heart failure) ([facility]) TAKE TWO TABLETS BY MOUTH [...] all other days or as directed by [facility] 135 Tablet 3 09/24/2023 [...] goal of less than 8.0% ([facility]) Inject 42 Units under the skin every [...] 70 11/22/2020 Coronary artery disease invo lving [place] coronary artery without angina pectoris 11/22/2020 Last [...] Classes - COLE Class D - Inhaled Xzawpnahvbyvmt-YCLB-XLHN Combination Inhaler ([facility]) Remote Patient Monitoring Vendor: No Connected [...] as of this encounter Progress Notes * Padmini Schaffer PHARM Tech - 11/24/2023 9:18 AM EDT Contacts Type Contact Phone/Fax 11/24/2023 09:12 AM EDT Phone (Outgoing) Fani Merritt "Matt" (Self) [phone] (M) Subjective Patient Findings Negatives: Signs/symptoms of thrombosis, Signs/symptoms of bleeding, Change in health, Change in alcohol use, Change in activity, Upcoming invasive procedure, Missed doses, Extra doses, Change in medications, Change in diet/appetite, Bruising Advised patient to contact Anticoagulation Clinic if any unusual bruising or bleeding, recent illness, changes in medication, or questions/concerns. PT/INR results, Coumadin dose instructions, and next PT/INR date communicated as noted by Pharmacist: Yes MAGGIE PRESLEY 11/24/2023, 9:18 AM * Liliana Green [facility] - 11/24/2023 8:19 AM EDT Coumadin Clinic (region specific) Objective Current Warfarin Dose As of 11/24/2023 Warfarin maintenance plan: 2.5 mg (2.5 mg x 1) every Mon, Wed, Fri; 5 mg (2.5 mg x 2) all other days INR Result As of 11/24/2023 INR goal: 2.5-3.5 INR used for dosin.3 (11/22/2023) Assessment & Plan Warfarin Plan As of 11/24/2023 Full warfarin instructions: 2.5 mg every Mon, Wed, Fri; 5 mg all other days No change documented: Liliana Green RPh Next INR check: 12/20/2023 Repeat PT/INR in 4 week(s) Weekly dose: not changed Additional Dosing Information: Description Home Staffing Manager to contact patient with dose instructions as noted. Liliana Green RPh 11/24/2023, 8:19 AM documented in this encounter Plan of Treatment Upcoming Encounters Date Type Department Care Team (Late st Contact Info) Description 11/26/2023 2:20 PM EDT Office Visit Pulmonary Medicine, [facility] [address] [place] [address] Ariel Wing MD [address] [place] [address] 12/02/2023 2:30 PM EDT Office Visit Pharmacy, [address] [place] [address] [place] [address] 12/23/2023 6:30 AM EDT Anticoagulation Pharmacy Call Center [address] [facility] [place] [address] [facility] 58 60 [facility] [place] [address] 12/24/2023 4:00 PM EDT [facility] [address] [place] [address] [place], [place] [address] [place] [address] 02/17/2024 2:30 PM EDT Office Visit Cardiology [address] [place] [address] Ulices Phillips PA-C [address] [place] [address] 02/25/2024 2:20 PM EDT Office Visit Family Medicine [address] [place] [phone] Edith Osuna MD [address] [place] [address] [place] [address] 07/26/2024 3:00 PM EST Office Visit Nephrology [address] [place] [address] Sonia Logan MD [address] [facility] [address] 08/02/2024 2:30 PM EST Nurse Only Ancillary [address] [place] [address] [place], Nurse Annual Wellness [address] [place] [address] [place] [address] Health Maintenance Due Date Last Done Comments *BISPHONATE OR OTHER ACCEPTABLE MEDICATION NEEDED FOR OSTEOPOROSIS (REFER TO SMARTSET #1146) 02/07/2023 Diabetic Foot Exam 05/31/2023 05/31/2022, 07/31/2021 GFR 08/07/2023 02/05/2023, 09/09, 05/31/2022, Additional history exists HbA1c 08/07/2023 02/05/2023, 05/10, 11/23/2021, Additional history exists CKD PHOS USE SMARTSET 04148 10/04/2023 10/04/2022, 1 09/30/2020 Diabetic Eye Exam 12/07/2023 12/06/2022, , 07/02/2019 CKD HGB USE SMARTSET 71984 02/06/202402/05, 02/05/2023, 10/04/2022, Additional history exists DXA [...] D LEVEL ONCE IN A LIFETIME-USE SMARTSET# 59642 Completed 02/05/2023 Influenza Vaccine (FLU shot) Completed [...] Date/Time Associated Diagnosis Comments OUTSIDE LAB-PT/INR Routine 11/22/2023 documented in this encounter Results * OUTSIDE LAB-PT/INR (11/22/2023) INR-OUTSIDE LAB 3.3 11/22/2023 History Per Patient LABORATORY documented in this encounter Visit Diagnoses Diagnosis H/O mitral valve replacement with mechanical valve- Primary Heart valve replaced by other means Paroxysmal atrial fibrillation (HCC) Atrial fibrillation documented in this encounter Care Teams Pantograph I Engraver Relationship Specialty Start Date End Date Edith Osuna MD [address] [place] [address] [place] [address] PCP - General Family Medicine 02/15/21 documented as of this encounter
--- OUTSIDE RECORDS SUMMARY | 2024-05-12 05:21 | External Medical Summary | Summary of Care ---
Author Name Unknown Organization [facility] Address [address] [place] [address] Phone [phone] Care Team Providers Care Creative Producer Name Role Phone Edith Osuna MD Primary Care Prov ider Encounter Details Date Type Department Care Team (Late st Contact Info) Description 11/22/2023 Result Scan Unspecified Department <No scans attached> [...] 30 Tab 0 11/22/2020 Active Saline Nasal [place] 0.65 % Nasal SolutionIndications: for nasal dryness or congestion Administer 2 Sprays into each nostril in the morning and 2 Sprays at noon and 2 Sprays in the evening and 2 Sprays before bedtime. for nasal dryness or congestion. 60 mL 0 11/22/2020 Active Jackman 3 1200 MG Oral CapsuleIndications:h eart health [...] A1c goal of less than 8.0% ([facility]) Use to test blood sugar 3-4 times a day dx E11.9 400 Each 3 03/13/2021 Active OneTouch Verio In Vitro Strip (Glucose Blood)Indications:Ty pe 2 diabetes mellitus with hemoglobin A1c goal of less than 8.0% ([facility]) Use to test blood sugar 3-4 times a day dx e11.9 400 Strip 3 03/13/2021 Active FreeStyle Robbin 2 Sensor Use as directed. 0 Active Magnesium Oxide 400 (240 Mg) MG Oral TabletIndications:Ch ronic diastolic CHF (congestive heart failure) ([facility]) Take 1 Tab by mouth daily. 28 Tab 5 04/19/2021 Active oxygen IN GAS Use 2 L/min(Oxygen) as directed continuous. 0 Active Insulin Syringes (Disposable) U-100 1 MLIndications:Type 2 diabetes mellitus with hemoglobin A1c goal of less than 8.0% ([facility]) Twice a day 200 [...] ns:Chronic diastolic CHF (congestive heart failure) ([facility]) TAKE ONE TABLET BY MOUTH EVERY MORNING, AND ONE BEFORE BEDTIME 180 Tablet 1 06/30/2023 4 Active Trelegy Ellipta 100-62.5-25 MCG/ACT Aerosol Powder Breath Activated (Fluticasone-Umeclid inium-Vilanterol)Ind ications:COPD, group B, by GOLD 2017 classification ([facility]) INHALE ONE PUFF BY MOUTH EVERY MORNING 60 Each 5 07/20/2023 4 Active HYDROcodone-Acetamin ophen 5-325 MG Oral TabletIndications:DD D (degenerative disc disease), lumbar Take 1 Tablet by mouth every 8 hours as needed (back). 30 Tablet 0 08/13/2023 Active Furosemide 40 MG Oral Tablet (Lasix)Indications:C hronic diastolic CHF (congestive heart failure) ([facility]) TAKE TWO TABLETS BY [...] all other days or as directed by [facility] 135 Tablet 3 09/24/2023 Active [...] A1c goal of less than 8.0% ([facility]) Inject 42 Units under the [...] 3L continuously Subclinical hypothyroidism 10/04/2022 History of [place] (myocardial infarction) 05/31/2022 Type 2 diabetes mellitus [...] 70 11/22/2020 Coronary artery disease invo lving [place] coronary artery without angina pectoris 11/22/2020 Last [...] Classes - COLE Class D - Inhaled Jtabcbvrjrgqyu-KMLX-NZUJ Combination Inhaler ([employer]) Remote Patient Monitoring Vendor: No Connected RPM Device(s): No current devices Self-Management plan Other/Additional Comments: rescue inhaler, contact [facility] Exacerbation plan Chest Xray Additional Comments: [...] 100mcg/0.5mg (Moderna) 08/14/2021 Covid-19 Ad26, Single Dose ([employer] 021 Pneumococcal Conjugate Vacc, 13 Valent (Prevnar) [...] 2:20 PM EDT Office Visit Pulmonary Medicine, [facility] [address] [place] [address] Ariel Wing MD [address] [facility] [place] [address] 12/02/2023 2:30 PM EDT Office Visit Pharmacy, [address] [place] [address] [place] [address] 12/24/2023 4:00 PM EDT Home Visit [facility] [address] [place] [address] Nette Dior, OCTAVIO [address] [place] [address] 02/17/2024 2:30 PM EDT Office Visit Cardiology [address] [place] [address] Ulices Phillips PAHusseinC [address] [place] [address] 02/25/2024 2:20 PM EDT Office Visit Family Medicine [address] [place] [phone] Edith Osuna MD [address] [place] [address] [place] [address] 07/26/2024 3:00 PM EST Office Visit Nephrology [address] [place] [address] Sonia Logan MD [address] [place] [address] 08/02/2024 2:30 PM EST Nurse Only Ancillary [address] [place] [address] [place], Nurse [address] [place] [address] Health Maintenance Due Date Last Done Comments *BISPHONATE OR OTHER ACCEPTABLE MEDICATION NEEDED FOR OSTEOPOROSIS (REFER TO SMARTSET #1146) 02/07/2023 Diabetic Foot Exam 05/31/2023 05/31/2022, 07/31/2021 GFR 08/07/2023 02/05/2023, 09/09, 05/31/2022, Additional history exists HbA1c 08/07/2023 02/05/2023, 05/10, 11/23/2021, Additional history exists CKD PHOS USE SMARTSET 20864 10/04/2023 10/04/2022, 1 09/30/2020 Diabetic Eye Exam 12/07/2023 12/06/2022, , 07/02/2019 CKD HGB USE SMARTSET 06887 02/06/202402/05, 02/05/2023, 10/04/2022, Additional history exists DXA [...] D LEVEL ONCE IN A LIFETIME-USE SMARTSET# 57617 Completed 02/05/2023 Influenza Vaccine (FLU shot) Completed [...] Date/Time Associated Diagnosis Comments OUTSIDE LAB RESULTS 11/22/2023 documented in this encounter Results * OUTSIDE LAB RESULTS (11/22/2023) 11/22/2023 No Physician Data Unknown LABORATORY documented in this encounter Care Teams Creative Producer Relationship Specialty Start Date End Date Edith Osuna MD [address] [place] [address] [place] [phone] PCP - General Family Medicine 02/15/21 documented as of this encounter
--- OUTSIDE RECORDS SUMMARY | 2024-05-12 05:21 | External Medical Summary | Summary of Care ---
Author Name Unknown Organization [facility] Address [address] [place] [address] Phone [phone] Care Team Providers Care Appliquer Name Role Phone Edith Osuna MD Primary Care Prov ider Reason for Visit * Reason Comments eRx-Medication Refill Encounter Details Date Type Department Care Team (Late st Contact Info) Description 11/22/2023 Refill Family Medicine [address] [phone] Edith Osuna MD [address] [place] [id number] Type 2 diabetes mellitus with hemoglobin A1c goal of less than 8.0% ([facility]) Allergies Active Allergy Reactions Criticality Noted [...] mouth daily with breakfast. 30 Tab 0 1 Active Multivitamin Adult Oral TabletIndications: supplementation Take by mouth 1 Tablet daily . 30 Tab 0 1 Active Saline Nasal [place] 0.65 % Nasal SolutionIndication s:for nasal dryness or congestion Administer 2 Sprays into each nostril in the morning and 2 Sprays at noon and 2 Sprays in the evening and 2 Sprays before bedtime. for nasal dryness or congestion. 60 mL 0 1 Active [place] 3 1200 MG Oral CapsuleIndications :heart health Take by mouth 2 Capsules every night at bedtime . 60 Cap 0 1 Active Acetaminophen 325 MG Oral Tablet (Tylenol)Indicatio ns:as needed for pain/fever Take 2 Tablets by mouth every 4 hours as needed for Fever (Temp Greater than ) or Pain, Mild. 100 Tab 0 1 Active OneTouch Delica Lancets 30GIndications:Typ e 2 diabetes mellitus with hemoglobin A1c goal of less than 8.0% ([facility]) Use to test blood sugar 3-4 times a day dx E11.9 400 Each 3 1 Active OneTouch Verio In Vitro Strip (Glucose Blood)Indications: Type 2 diabetes mellitus with hemoglobin A1c goal of less than 8.0% ([facility]) Use to test blood sugar 3-4 times a day dx e11.9 400 Strip 3 1 Active FreeStyle Robbin 2 Sensor Use as directed. 0 Active Magnesium Oxide 400 (240 Mg) MG Oral TabletIndications: Chronic diastolic CHF (congestive heart failure) (HCC) Take 1 Tab by mouth daily. 28 Tab 5 1 Active oxygen IN GAS Use 2 L/min(Oxygen) as directed continuous. 0 Active Insulin Syringes (Disposable) U-100 1 MLIndications:Type 2 diabetes mellitus with hemoglobin A1c goal of less than 8.0% ([facility]) Twice a day 200 Each 1 2 Active Ocuvite-Lutein Oral TabletIndications: supplementation Take by mouth 1 Tablet daily . 0 Active Calcium Carbonate-Vitamin D 600-200 MG-UNIT Oral TabletIndications: supplementation Take 1 Tablet by mouth in the morning. 0 Active Albuterol Sulfate 108 (90 Base) MCG/ACT Inhalation Aerosol Powder Breath ActivatedIndicatio ns:wheezing Inhale by mouth 2 Puffs every 4 hours . For wheezing 3 Each 3 2 Active Additional Information Patient not taking.Reported on 11/20/2023 Senna 8.6 MG Oral Capsule Take 1 Tablet by mouth in the morning. As needed constipation . 0 Active Denosumab 60 MG/ML Subcutaneous Solution Prefilled Syringe (Prolia)Indication s:Age-related osteoporosis without current pathological fracture INJECT 60 MG UNDER THE SKIN ONCE FOR 1 DOSE 1 mL 1 2 12/15/19 24 Active Additional Information Patient not taking.Reported on 07/30/2023 Metoprolol Succinate ER 50 MG Oral Tablet Extended Release 24 Hour (toPROL XL) TAKE ONE TABLET BY MOUTH EVERY DAY 90 Tablet 3 3 01/16/20 24 Active Atorvastatin Calcium 40 MG Oral Tablet (Lipitor) TAKE ONE TABLET BY MOUTH EVERY DAY 90 Tablet 2 3 Active Spironolactone 25 MG Oral Tablet (Aldactone)Indicat ions:Chronic diastolic CHF (congestive heart failure) (HCC) TAKE ONE TABLET BY MOUTH EVERY MORNING, AND ONE BEFORE BEDTIME 180 Tablet 1 3 06/29/20 24 Active Trelegy Ellipta 100-62.5-25 MCG/ACT Aerosol Powder Breath Activated (Fluticasone-Umecl idinium-Vilanterol )Indications:COPD, group B, by GOLD 2017 classification ([facility]) INHALE ONE PUFF BY MOUTH EVERY MORNING 60 Each 5 3 07/19/20 24 Active HYDROcodone-Acetam inophen 5-325 MG Oral TabletIndications: DDD (degenerative disc disease), lumbar Take 1 Tablet by mouth every 8 hours as needed (back). 30 Tablet 0 3 Active Furosemide 40 MG Oral Tablet (Lasix)Indications :Chronic diastolic CHF (congestive heart failure) (HCC) TAKE TWO TABLETS BY MOUTH EVERY MORNING 180 Tablet 1 3 Active DIURETIC TITRATION PLAN If no improvement on day 3, contact heart failure managing provider. 1 Each 0 3 Active Omeprazole 20 MG Oral Capsule Delayed Release (PriLOSEC)Indicati ons:Gastro-esophag eal reflux disease without esophagitis TAKE ONE CAPSULE BY MOUTH EVERY DAY 1 HOUR BEFORE THE FIRST MEAL OF THE DAY 90 Capsule 1 3 08/24/20 24 Active dilTIAZem HCl ER Coated Beads 120 MG Oral Capsule Extended Release 24 Hour (Cardizem CD) TAKE ONE CAPSULE BY MOUTH EVERY DAY 90 Capsule 1 3 08/24/20 24 Active Ketoconazole 2 % External CreamIndications:r paul Apply to rash twice a day until clear 60 g 3 4 Active BD Insulin Syringe U/F 31G X 5/16" 0.5 ML (Insulin Syringe-Needle U-100) use twice daily 200 Each 1 4 Active Clopidogrel Bisulfate 75 MG Oral Tablet (pLAVix) TAKE ONE TABLET BY MOUTH EVERY DAY 90 Tablet 1 4 09/22/19 25 Active Warfarin Sodium 2.5 MG Oral Tablet (Coumadin)Indicati ons:Paroxysmal atrial fibrillation (HCC),H/O mitral valve replacement with mechanical valve Take 2.5mg (1 tablet) on Mon,Wed and Fri and 2 tablets (5mg) all other days or as directed by anticoag clinic 135 Tablet 3 4 Active FLUoxetine HCl 20 MG Oral Capsule (PROzac)Indication s:Moderate episode of recurrent major depressive disorder (HCC) TAKE ONE CAPSULE BY MOUTH EVERY DAY 90 Capsule 1 4 09/24/19 25 Active Potassium Chloride Carly ER 10 MEQ Oral Tablet Extended Release TAKE ONE TABLET BY MOUTH EVERY DAY IN THE MORNING 90 Tablet 0 4 10/30/19 25 Active BD Pen Needle Stephanie U/F 32G X 4 MM (Insulin Pen Needle) Use as directed to inject insulin up to three times daily 300 Each 3 4 Active NovoLOG FlexPen 100 UNIT/ML Subcutaneous Solution Pen-injector (insulin aspart) Inject 10 Units under the skin daily before breakfast AND 10 Units daily before dinner. 15 mL 3 4 Active traZODone HCl 50 MG Oral Tablet (Desyrel) TAKE ONE TABLET BY MOUTH EVERY DAY AT BEDTIME 90 Tablet 1 4 11/18/19 25 Active Tresiba FlexTouch 100 UNIT/ML Subcutaneous Solution Pen-injector (Insulin Degludec)Indicatio ns:Type 2 diabetes mellitus with hemoglobin A1c goal of less than 8.0% ([facility]) inject under the skin 42 units before bedtime 45 mL 1 4 Active Tresiba FlexTouch 100 UNIT/ML Subcutaneous Solution Pen-injector (Insulin Degludec)Indicatio ns:Type 2 diabetes mellitus with hemoglobin A1c goal of less than 8.0% ([facility]) Inject 42 Units under the skin every evening. 45 mL 3 4 11/24/19 24 Discontinued documented as of this encounter (statuses [...] 3L continuously Subclinical hypothyroidism 10/04/2022 History of [place] (myocardial infarction) 05/31/2022 Type 2 diabetes mellitus [...] 70 11/22/2020 Coronary artery disease invo lving [place] coronary artery without angina pectoris 11/22/2020 Last [...] Classes - COLE Class D - Inhaled Aavvjvffqhckpw-KWOW-VVLR Combination Inhaler (Trellegy) Remote Patient Monitoring Vendor: No Connected RPM Device(s): No current devices Self-Management plan Other/Additional Comments: rescue inhaler, contact [facility] Exacerbation plan Chest Xray Additional Comments: [...] encounter Miscellaneous Notes * Telephone Encounter - Akiko Kaur RPh - 11/24/2023 11:35 AM EDT Signed Prescriptions: Disp Refills Tresiba FlexTouch 100 UNIT/ML Subcutaneous*45 mL 1 Sig: inject under the skin 42 units before bedtimeAuthorizing Provider: EDITH OSUNA User:AKIKO KAUR * Telephone Encounter - Akiko Kaur RPh - 11/24/2023 11:34 AM EDT Provided 90 days supply with 1 refill. Per refill protocol patient should have lipid panel on file within past year. Lab work was already ordered. Added reminder note to pharmacy. Thanks, Akiko Kaur RP Clinical Pharmacist [facility] ([facility]) (Formerly [facility]pharm[facility]) [phone] * Telephone Encounter - Interface, E-Rx Ss Inbound - 11/24/2023 10:25 AM EDT Pending Prescriptions: Disp Refills Tresiba FlexTouch 100 UNIT/ML Subcutaneous*45 mL 0 Sig: inject under the skin 42 units before bedtime documented in this encounter Plan of Treatment Upcoming Encounters Date Type Department Care Team (Late st Contact Info) Description 11/26/2023 2:20 PM EDT Office Visit Pulmonary Medicine, [facility] [address] [place] [address] Ariel Wing MD [address] [facility] [place] [address] 12/02/2023 2:30 PM EDT Office Visit Pharmacy, [address] [place] [address] [place] [address] 12/23/2023 6:30 AM EDT Anticoagulation Pharmacy Call Center [phone] [facility] [place] [address] [facility] 58 60 [facility] [place] [address] 12/24/2023 4:00 PM EDT Home Visit [facility] [address] [place] [address] Nette Dior, RN [address] [place] [address] 02/17/2024 2:30 PM EDT Office Visit Cardiology [address] [place] [address] Ulices Phillips PA-C [address] [place] [address] 02/25/2024 2:20 PM EDT Office Visit Family Medicine [address] [place] [phone] Edith Osuna MD [address] [place] [address] [place] [address] 07/26/2024 3:00 PM EST Office Visit Nephrology [address] [place] [address] [facility] [address] [facility] [address] 08/02/2024 2:30 PM EST Nurse Only Ancillary [address] [place] [address] [place], Nurse Annual [address] [place] [address] Health Maintenance Due Date Last Done Comments *BISPHONATE OR OTHER ACCEPTABLE MEDICATION NEEDED FOR OSTEOPOROSIS (REFER TO SMARTSET #1146) 02/07/2023 Diabetic Foot Exam 05/31/2023 05/31/2022, 07/31/2021 GFR 08/07/2023 02/05/2023, 09/09, 05/31/2022, Additional history exists HbA1c 08/07/2023 02/05/2023, 05/10, 11/23/2021, Additional history exists CKD PHOS USE SMARTSET 72937 10/04/2023 10/04/2022, 1 09/30/2020 Diabetic Eye Exam 12/07/2023 12/06/2022, , 07/02/2019 CKD HGB USE SMARTSET 55192 02/06/202402/05, 02/05/2023, 10/04/2022, Additional history exists DXA [...] D LEVEL ONCE IN A LIFETIME-USE SMARTSET# 47165 Completed 02/05/2023 Influenza Vaccine (FLU shot) Completed [...] (HCC) documented in this encounter Care Teams Appliquer Relationship Specialty Start Date End Date Edith Osuna MD [address] [place] [address] [place] [phone] PCP - General Family Medicine 02/15/21 documented as of this encounter
--- OUTSIDE RECORDS SUMMARY | 2024-05-12 05:22 | External Medical Summary | Summary of Care ---
Author Name Unknown Organization [facility] Address [address] [place] [address] Phone [phone] Care Team Providers Care Drywall Finisher Foreman Name Role Phone Edith Osuna MD Primary Care Prov ider Encounter Details Date Type Department Care Team (Late st Contact Info) Description 11/14/2023 Telephone Pharmacy, [address] [place] [address] [facility] [address] Allergies Active Allergy Reactions Criticality Noted Date Comments Abhinav Inhibitors Cough 12/25/2021 Aspirin 02/15/2021 "delgado" her stomach, had a GI bleed in the past Codeine 11/22/2020 Morphine 11/22/2020 Oxycodone 11/22/2020 Nausea, vomiting, chest pain Semaglutide(0.25 Or 0.5mg-Dos) Diarrhea 10/04/2022 Severe documented as of this encounter (statuses as of 11/14/2023) Medications Medication Sig Dispensed Refills Start Date End Date Status Ferrous Sulfate 325 (65 Fe) MG Oral Tablet (Feosol)Indications: anemia Take 1 Tablet by mouth daily with breakfast. 30 Tab 0 11/22/2020 Active Multivitamin Adult Oral TabletIndications:venegas pplementation Take by mouth 1 Tablet daily . 30 Tab 0 11/22/2020 Active Saline Nasal [place] 0.65 % Nasal SolutionIndications: for nasal dryness or congestion Administer 2 Sprays into each nostril in the morning and 2 Sprays at noon and 2 Sprays in the evening and 2 Sprays before bedtime. for nasal dryness or congestion. 60 mL 0 11/22/2020 Active [place] 3 1200 MG Oral CapsuleIndications:[facility] [...] DAY 90 Tablet 3 12/17/2022 4 Active traZODone HCl 50 MG Oral Tablet (Desyrel) TAKE ONE TABLET BY MOUTH EVERY DAY AT BEDTIME 90 Tablet 3 11/05/2022 4 Active Atorvastatin Calcium 40 MG Oral [...] 8.0% ([facility]) Inject 42 Units under the skin every evening. 45 mL 3 11/04/2023 Active documented as of this encounter (statuses as of 11/14/2023) Active Problems Problem Noted Date Diagnosed Date COPD, group B, by GOLD 2017 classification 09/15 Overview: Per COPD GOLD Classification Age-related osteoporosis wit hout current pathological fracture 02/05/2023 Last Assessment & Plan: Currently on prolia injections Chronic respiratory failure with hypoxia, on home oxygen therapy 10/04/2022 Overview: Wearing 3L continuously Last Assessment & Plan: Wearing 3L continuously Subclinical hypothyroidism 10/04/2022 History of [place] (myocardial infarction) 05/31/2022 Type 2 diabetes mellitus [...] 70 11/22/2020 Coronary artery disease invo lving [place] coronary artery without angina pectoris 11/22/2020 Last [...] as of this encounter (statuses as of 11/14/2023) Resolved Problems Problem Noted Date Diagnosed Date Resolved Date COPD, severity to be determined 08/19/2022 09/18/2023 Overview: Per COPD GOLD Classification Last Assessment & Plan: "RED FLAG" COPD symptoms: Cough ("I get a different kind of cough than what I' have every day") Wheezing ("You can hear the whistling across the room") Medication Regimen All Classes - COLE Class D - Inhaled Nvkaoeghgzfplw-TVCP-QJWT Combination Inhaler (Trellegy) Remote Patient Monitoring Vendor: [...] as of this encounter (statuses as of 11/14/2023) Immunizations Name Administration Dates Next Due COVID-19, [...] Telephone Encounter - Kathie Peters RPh - 11/14/2023 10:10 AM EST Patient Phone Numbers Attempted to contact patient to follow up on Dexcom transition, no answer. Left message to return call to clinic. Per [employer] portal, [employer] Local to Everyone 6. Supply order has been placed. Scheduled to ship on 11/11/2023. Tracking information will be updated once shipped. Kathie Peters RPh, PharmD Clinical Pharmacist - Travel Rn Or Medication Therapy [facility] 11/14/2023, 10:13 AM [phone] documented in this encounter Plan of Treatment Upcoming Encounters Date Type Department Care Team (Late st Contact Info) Description 11/17/2023 11:00 AM EDT Office Visit Cardiology, [facility] 132 [facility] [place] [address] Kt Tran DO 132 [facility] [place] [address] 11/19/2023 1:00 PM EDT Office Visit Pulmonary Medicine, [facility] [place] [address] Ariel Wing MD [address] [facility] [address] 11/25/2023 6:30 AM EDT Anticoagulation Pharmacy Call Center [phone] [place] [address] [facility] 58 60 [facility] [place] [address] 12/02/2023 2:30 PM EDT Office Visit Pharmacy, [address] [place] [address] [place] [address] 12/24/2023 4:00 PM EDT [facility] [address] [place] [address] Nette Dior, OCTAVIO [address] [place] [address] 02/25/2024 2:20 PM EDT Office Visit Family Medicine [address] [place] [phone] Edith Osuna MD [address] [place] [address] [place] [address] 07/30/2024 3:00 PM EST Office Visit Nephrology [address] [place] [address] Sonia Logan MD [address] [facility] [place] [address] 08/02/2024 2:30 PM EST Nurse Only Ancillary [address] [place] [address] [place], Nurse Annual Wellness [address] [place] [address] [place] [address] Health Maintenance Due Date Last Done Comments *BISPHONATE OR OTHER ACCEPTABLE MEDICATION NEEDED FOR OSTEOPOROSIS (REFER TO SMARTSET #1146) 02/07/2023 Diabetic Foot Exam 05/31/2023 05/31/2022, 07/31/2021 GFR 08/07/2023 02/05/2023, 09/09, 05/31/2022, Additional history exists HbA1c 08/07/2023 02/05/2023, 05/10, 11/23/2021, Additional history exists CKD PHOS USE SMARTSET 48645 10/04/2023 10/04/2022, 1 09/30/2020 Diabetic Eye Exam 12/07/2023 12/06/2022, , 07/02/2019 CKD HGB USE SMARTSET 83351 02/06/202402/05, 02/05/2023, 10/04/2022, Additional history exists DXA [...] D LEVEL ONCE IN A LIFETIME-USE SMARTSET# 49801 Completed 02/05/2023 Influenza Vaccine (FLU shot) Completed [...] Primary documented in this encounter Care Teams Drywall Finisher Foreman Relationship Specialty Start Date End Date Edith Osuna MD [address] [place] [address] [place] [address] PCP - General Family Medicine 02/15/21 documented as of this encounter
--- OUTSIDE RECORDS SUMMARY | 2024-05-12 05:22 | External Medical Summary | Summary of Care ---
Author Name Unknown Organization [facility] Address [address] [place] [address] Phone [phone] Care Team Providers Care Company Truck Driver Name Role Phone Edith Osuna MD Primary Care Prov ider Reason for Visit * Reason Onset Date Comments Medical Records Request 11/14/2023 [facility] Encounter Details Date Type Department Care Team (Late st Contact Info) Description 11/14/[address] [phone] Edith Osuna MD [address] [place] [address] [place] [address] Medical Records Request ([facility]... Allergies Active Allergy Reactions Criticality Noted Date [...] 30 Tab 0 11/22/2020 Active Saline Nasal [place] 0.65 % Nasal SolutionIndications: for nasal dryness or congestion Administer 2 Sprays into each nostril in the morning and 2 Sprays at noon and 2 Sprays in the evening and 2 Sprays before bedtime. for nasal dryness or congestion. 60 mL 0 11/22/2020 Active [place] 3 1200 MG Oral CapsuleIndications: [facility] [...] A1c goal of less than 8.0% ([facility]) Use to test blood sugar 3-4 times a day dx E11.9 400 Each 3 03/13/2021 Active OneTouch Verio In Vitro Strip (Glucose Blood)Indications:Ty pe 2 diabetes mellitus with hemoglobin A1c goal of less than 8.0% ([facility]) Use to test blood sugar 3-4 times a day dx e11.9 400 Strip 3 03/13/2021 Active FreeStyle Rob[place] 2 Sensor Use as directed. 0 Active Magnesium Oxide 400 (240 Mg) MG Oral TabletIndications:Ch ronic diastolic CHF (congestive heart failure) ([facility]) Take 1 Tab by mouth daily. 28 Tab 5 04/19/2021 Active oxygen IN GAS Use 2 L/min(Oxygen) as directed continuous. 0 Active Insulin Syringes (Disposable) U-100 1 MLIndications:Type 2 diabetes mellitus with hemoglobin A1c goal of less than 8.0% ([facility]) Twice a day 200 Each [...] ns:Chronic diastolic CHF (congestive heart failure) ([facility]) TAKE ONE TABLET BY MOUTH EVERY MORNING, AND ONE BEFORE BEDTIME 180 Tablet 1 06/30/2023 4 Active Trelegy Ellipta 100-62.5-25 MCG/ACT Aerosol Powder Breath Activated (Fluticasone-Umeclid inium-Vilanterol)Ind ications:COPD, group B, by GOLD 2017 classification ([facility]) INHALE ONE PUFF BY MOUTH EVERY MORNING 60 Each 5 07/20/2023 4 Active HYDROcodone-Acetamin ophen 5-325 MG Oral TabletIndications:DD D (degenerative disc disease), lumbar Take 1 Tablet by mouth every 8 hours as needed (back). 30 Tablet 0 08/13/2023 Active Furosemide 40 MG Oral Tablet (Lasix)Indications:C hronic diastolic CHF (congestive heart failure) ([facility]) TAKE TWO TABLETS BY MOUTH EVERY [...] all other days or as directed by [facility] 135 Tablet 3 09/24/2023 [...] A1c goal of less than 8.0% ([facility]) Inject 42 Units under the skin [...] 70 11/22/2020 Coronary artery disease invo lving [place] coronary artery without angina pectoris 11/22/2020 Last [...] Classes - COLE Class D - Inhaled Nyhoaepzvhabso-PZMS-GAJA Combination Inhaler (Damonángel) Remote Patient Monitoring Vendor: No Connected RPM Device(s): No current devices Self-Management plan Other/Additional Comments: rescue inhaler, contact [facility] Exacerbation plan Chest Xray Additional Comments: [...] encounter Miscellaneous Notes * Telephone Encounter - Sylvester Suero OSA - 11/14/2023 9:26 AM EST Recd urgent request for records 11/14/2023 from [employer]. I faxed auth to [facility] at [phone] on 11/14/2023. To check status of records, please call HIM directly at [phone]. documented in this encounter Plan of Treatment Upcoming Encounters Date Type Department Care Team (Late st Contact Info) Description 11/17/2023 11:00 AM EDT Office Visit Cardiology, [facility] [address] [facility] [place] [address] Kt Tran DO [address] [facility] [place] [address] 11/19/2023 1:00 PM EDT Office Visit Pulmonary Medicine, [facility] 132 [facility] [place] [address] Ariel Wing MD [address] [place] [address] 11/25/2023 6:30 AM EDT Anticoagulation Pharmacy Call Center [phone] [place] [address] [facility] 58 [address] [facility] [place] [address] 12/02/2023 2:30 PM EDT Office Visit Pharmacy, [address] [place] [address] [place] [address] 12/24/2023 4:00 PM EDT [facility] [address] [place] [address] Nette Dior, OCTAVIO [address] [place] [address] 02/25/2024 2:20 PM EDT Office Visit Family Medicine [address] [place] [phone] Edith Osuna MD [address] [place] [address] [place] [address] 07/30/2024 3:00 PM EST Office Visit Nephrology [address] [place] [address] Sonia Logan MD [address] [place] [address], [place] [address] 08/02/2024 2:30 PM EST Nurse Only Ancillary [address] [place] [address] [place], Nurse Annual [address] [place] [address] Health Maintenance Due Date Last Done Comments *BISPHONATE OR OTHER ACCEPTABLE MEDICATION NEEDED FOR OSTEOPOROSIS (REFER TO SMARTSET #1146) 02/07/2023 Diabetic Foot Exam 05/31/2023 05/31/2022, 07/31/2021 GFR 08/07/2023 02/05/2023, 09/09, 05/31/2022, Additional history exists HbA1c 08/07/2023 02/05/2023, 05/10, 11/23/2021, Additional history exists CKD PHOS USE SMARTSET 53902 10/04/2023 10/04/2022, 1 09/30/2020 Diabetic Eye Exam 12/07/2023 12/06/2022, , 07/02/2019 CKD HGB USE SMARTSET 79834 02/06/202402/05, 02/05/2023, 10/04/2022, Additional history exists DXA [...] D LEVEL ONCE IN A LIFETIME-USE SMARTSET# 10348 Completed 02/05/2023 Influenza Vaccine (FLU shot) Completed [...] filedocumented as of this encounter Care Teams Company Truck Driver Relationship Specialty Start Date End Date Edith Osuna MD [address] [place] [address] [place] [phone] PCP - General Family Medicine 02/15/21 documented as of this encounter
--- OUTSIDE RECORDS SUMMARY | 2024-05-12 05:22 | External Medical Summary | Summary of Care ---
Author Name Unknown Organization [facility] Address [address] [place] [address] Phone [phone] Care Team Providers Care Web Design Instructor Name Role Phone Edith Osuna MD Primary Care Prov ider Reason for Visit * Reason Comments Medication Refill Encounter Details Date Type Department Care Team (Late st Contact Info) Description 11/17/2023 Refill Family Medicine [address] [phone] Edith Osuna MD [address] [place] [address] Allergies Active Allergy Reactions Criticality Noted [...] 30 Tab 0 11/22/2020 Active Saline Nasal [place] 0.65 % Nasal SolutionIndications :for nasal dryness or congestion Administer 2 Sprays into each nostril in the morning and 2 Sprays at noon and 2 Sprays in the evening and 2 Sprays before bedtime. for nasal dryness or congestion. 60 mL 0 11/22/2020 Active [place] 3 1200 MG Oral CapsuleIndications: heart health [...] than 8.0% ([facility]) Use to test blood sugar 3-4 times a day dx E11.9 400 Each 3 03/13/2021 Active OneTouch Verio In Vitro Strip (Glucose Blood)Indications:T ype 2 diabetes mellitus with hemoglobin A1c goal of less than 8.0% ([facility]) Use to test blood [...] than 8.0% ([facility]) Twice a day 200 [...] than 8.0% ([facility]) Inject 42 Units under the skin every evening. 45 mL 11/04/2023 Active traZODone HCl 50 MG Oral Tablet (Desyrel) TAKE ONE TABLET BY MOUTH EVERY DAY AT BEDTIME 90 Tablet 1 11/18/2023 11/18/19 25 Active traZODone HCl 50 MG Oral Tablet (Desyrel) TAKE ONE TABLET BY MOUTH EVERY DAY AT BEDTIME 90 Tablet 3 11/05/2022 11/17/19 24 Discontinu ed(Refill) documented as of this [...] 3L continuously Subclinical hypothyroidism 10/04/2022 History of [place] (myocardial infarction) 05/31/2022 Type 2 diabetes mellitus [...] 70 11/22/2020 Coronary artery disease invo lving [place] coronary artery without angina pectoris 11/22/2020 Last [...] Classes - COLE Class D - Inhaled Cvkplhjbahzwhh-ABOM-GYUY Combination Inhaler (Trellegy) Remote Patient Monitoring Vendor: No Connected RPM Device(s): No current devices Self-Management plan Other/Additional Comments: rescue inhaler, contact [facility] Exacerbation plan Chest Xray Additional Comments: [...] Miscellaneous Notes * Telephone Encounter - Maru Velez RPh - 11/18/2023 8:03 AM EDTSigned Prescriptions: Disp Refills traZODone HCl 50 MG Oral Tablet (Desyrel) 90 Tab*1 Sig: TAKE ONE TABLET BY MOUTH EVERY DAY AT BEDTIME Authorizing Provider: EDITH OSUNA Ordering User: MARU VELEZ * Telephone Encounter - Maru Velez RPh - 11/18/2023 8:02 AM EDT Labs previously ordered. Approved until OV. documented in this encounter Plan of Treatment Upcoming Encounters Date Type Department Care Team (Late st Contact Info) Description 11/19/2023 1:00 PM EDT Office Visit Pulmonary Medicine, [facility] 132 [facility] [place] [phone] Ariel Wing MD [facility] [place] [address] 11/20/2023 3:00 PM EDT Office Visit Cardiology, [facility] [address] [place] [address] Kt Tran DO [address] [place] [address] 11/25/2023 6:30 AM EDT Anticoagulation Pharmacy Call Center [phone] [place] [address] [facility] 58 60 [facility] [place] [address] 12/02/2023 2:30 PM EDT Office Visit Pharmacy, [address] [place] [address] [place] [address] 12/24/2023 4:00 PM EDT [facility] [address] [place] [address] Nette Dior RN [address] [place] [address] 02/25/2024 2:20 PM EDT Office Visit Family Medicine [address] [place] [phone] Edith Osuna MD [address] [place] [address] [place] [address] 07/30/2024 3:00 PM EST Office Visit Nephrology [address] [place] [address] Sonia Logan MD [address] [place] [address] 08/02/2024 2:30 PM EST Nurse Only Ancillary Uziel Quiles[address] [place] [address] [place], Nurse [address] [place] [address] Health Maintenance Due Date Last Done Comments *BISPHONATE OR OTHER ACCEPTABLE MEDICATION NEEDED FOR OSTEOPOROSIS (REFER TO SMARTSET #1146) 02/07/2023 Diabetic Foot Exam 05/31/2023 05/31/2022, 07/31/2021 GFR 08/07/2023 02/05/2023, 09/09, 05/31/2022, Additional history exists HbA1c 08/07/2023 02/05/2023, 05/10, 11/23/2021, Additional history exists CKD PHOS USE SMARTSET 34672 10/04/2023 10/04/2022, 1 09/30/2020 Diabetic Eye Exam 12/07/2023 12/06/2022, , 07/02/2019 CKD HGB USE SMARTSET 15905 02/06/202402/05, 02/05/2023, 10/04/2022, Additional history exists DXA [...] D LEVEL ONCE IN A LIFETIME-USE SMARTSET# 80947 Completed 02/05/2023 Influenza Vaccine (FLU shot) Completed [...] as of this encounter Care Teams Web Design Instructor Relationship Specialty Start Date End Date Edith Osuna MD [address] [place] [address] [place] [address] PCP - General Family Medicine 02/15/21 documented as of this encounter
[2024-05-12 05:52] LABS: Basophils # (auto) 0.04 K/uL (0.00-0.20); Basophils % (auto) 0.6 %; Eosinophils # (auto) 0.18 K/uL (0.00-0.50); Eosinophils % (auto) 2.7 %; Immature Granulocytes # (auto) 0.01 K/uL (0.01-0.20); Immature Granulocytes % (auto) 0.1 %; Lymphocytes % (auto) 26.9 %; Mean Corpuscular Hemoglobin 29.1 pg (25.0-34.0); Mean Corpuscular Hgb Conc 32.4 g/dL (32.0-36.0); Mean Corpuscular Volume 89.9 fL (80.0-100.0); Mean Platelet Volume 10.2 fL (9.4-12.4); Monocytes # (auto) 0.63 K/uL (0.11-0.59); Monocytes % (auto) 9.4 %; Neutrophils # (auto) 4.04 K/uL (1.40-6.50); Neutrophils % (auto) 60.3 %; Platelet Count 212 K/uL (130-400); RDW Coefficient of Variation 14.9 % (11.5-14.5); RDW Standard Deviation 49.3 fL (36.4-46.3); Red Blood Count 3.78 M/uL (4.20-5.40)
[2024-05-12] MEDS: PANTOprazole 40 MG TAB PO SCH (05:58)
[2024-05-12 06:06] LABS: BUN Creatinine Ratio 21.5 (10-20); Calcium 8.6 mg/dl (8.6-10.3); Creatinine Clr Calc Pharmacy 24.6 ml/min; Est GFR (African American) 26.5 ml/min; Est GFR (Non-African American) 22.8 ml/min; Magnesium 2.1 mg/dl (1.7-2.4); Potassium 4.3 mmol/L (3.5-5.1)
[2024-05-12 06:13] LABS: Troponin I High Sensitivity 11.8 pg/ml (0-14)
[2024-05-12 06:21] LABS: INR 3.6 (0.9-1.1); Prothrombin Time 35.3 Seconds (9.0-12.0)
--- NOTE | 2024-05-12 07:01 | XRay Report ---
SINGLE VIEW CHEST CLINICAL HISTORY: Atypical chest pain FINDINGS: An AP, portable, upright chest radiograph is compared to study dated 09/01/2023. The patien t is status post midline sternotomy and cardiac valve surgery. A 3-lead cardiac AICD is unchanged in position. The heart is enlarged noting atherosclerotic calcification of the thoracic aorta. There is mild pulmonary vascular congestion. Chronic interstitial thickening is similar to previous. There is bibasilar scarring/atelectasis. No large pleural effusion or pneumothorax is seen. The skeletal struc tures are osteopenic. The bony thorax is grossly intact. IMPRESSION: 1. Cardiomegaly and AICD with mild pulmonary vascular congestion. 2. No airspace consolidation or large pleural effusion is identified. ACT 112: Negative or not required by law. Electronically signed by: Augustine Mccoy M.D. 05/12/2024 6:59 AM
[2024-05-12] MEDS: EZETIMIBE 10 MG TAB PO SCH (08:05)
[2024-05-12] MEDS: dilTIAZem HCL 120 MG CAPCR PO SCH (08:05)
[2024-05-12] MEDS: MULTIVITAMIN TAB PO SCH (08:06)
[2024-05-12] MEDS: MAGNESIUM OXIDE 400 MG TAB PO SCH (08:06)
[2024-05-12] MEDS: FUROSEMIDE 80 MG TAB PO SCH (08:06)
[2024-05-12] MEDS: FERROUS SULFATE 325 MG TAB PO SCH (08:07)
[2024-05-12] MEDS: ATORVASTATIN 40 MG TAB PO SCH (08:07)
[2024-05-12] MEDS: CALCIUM 600MG + VIT D 400 IU TAB PO SCH (08:07)
[2024-05-12] MEDS: METOPROLOL SUCC 50MG EXT REL TAB PO SCH (08:08)
[2024-05-12] MEDS: SPIRONOLACTONE 25 MG TAB PO SCH (08:08)
[2024-05-12] MEDS: FLUTICASONE FUROATE 100MCG 14 PUFFS/INHALER INH SCH (08:09)
[2024-05-12] MEDS: UMECLIDINIUM/VILANTEROL 62.5/25MCG 7 PUFFS/INHALER INH SCH (08:09)
[2024-05-12] MEDS: FLUoxetine HCL 20 MG CAP PO SCH (08:10)
[2024-05-12] MEDS: CLOPIDOGREL BISULFATE 75 MG TAB PO SCH (08:10)
--- NOTE | 2024-05-12 08:28 | Cardiology Consultation ---
Date of Consultation May 12, 2024 Assessment & Plan (1) Chest pain: (2) H/O mitral valve replacement: (3) CAD (coronary artery disease): (4) Atrial fibrillation: (5) Anticoagulant long-term use: (6) Pacemaker: Plan Assessment: 79 year old female presents with acute onset chest pressure with no other associated symptoms. Resolved prior to arrival to the hospital. Request for cardiology recommendations given her prior history. Plan: Chest pain: History of CAD: -Atypical in nature and "different" when compared to prior events leading to need for PCI. -single episode lasting approx 40 minutes with no recurrence. Patient has been having significant GI upset in the 24 hours leading to her episode. -EKG with no acute changes. -Troponin with minimal abnormality, with subsequent negative serial readings. -Will obtain echocardiogram today to assess overall structure and function. If no acute abnormalities will allow for patient to eat. -Continue to monitor on telemetry during course of hospitalization. Recommend obtaining pacer interrogation to ensure she was not having any type of ectopy or arrhythmia during time of event given her history to suggest her symptoms. -BP stable Continue GDMT with Atorvastatin, Plavix, Zetia, spironolactone, and toprol xl. Not on ASA therapy as patient is on Warfarin s/t A-fib. H/O mitral valve replacement Chronic Atrial fibrillation long term acute care registered nurse anticoagulation therapy Pacemaker -obtain echocardiogram to assess overall structure and function. -Obtain Pacemaker interrogation. -Continue Diltiazem, Furosemide, Toprol xl, and warfarin as per current regimen. -Review of telemetry shows no acute events. -Euvolemic on exam. -BP stable. Discussed plan to review echocardiogram to determine if any further cardiac testing is warranted. Case has been discussed with Dr. Gotti. Further recommendations regarding plan of care as per his assessment. I spent a total of 40 minutes on the date of service in preparation, delivery, documentation of the care provided to the patient excluding any time spent in the performance of separately billed services. FABIOLA Borges [facility] Cardiology [facility] Supervising Physician Co-Signing Physician Notes I have personally performed a history and physical examination on the patient. I have reviewed the advance practitioner's documentation, and I agree with, and take responsibility for the plan of care. 79-year-old female admitted with episode of chest discomfort lasting approximately 60 minutes with spontaneous resolution. ECG nondiagnostic due to ventricular pacing. No significant troponin elevation to suggest acute coronary syndrome. Review of bedside 2D transthoracic echocardiogram demonstrates preserved LV systolic function, no regional wall motion abnormality, normally functioning mechanical mitral valve prosthesis. Patient asymptomatic since admission. No dysrhythmia on telemetry. Obtain pacemaker interrogation although symptoms are not suggestive of symptomatic dysrhythmia. I spent a total of 35 minutes on the date of service in preparation, delivery, and documentation of the care provided to this patient, excluding any time spent in the performance of separately billed services. Hector Gotti DO, [facility] History of Present Illness Reason for Consultation: Chest pain Requesting Physician: Franck trujillo Attending Physician: Sallie Dawkins MD History of Present Illness HPI: Patient is a 79 year-old female with PMHx as noted below that presented to the ED for complaints of chest pain that started around 7pm last evening. Reports that the pain started mid-sternal and was radiating to the back. Described the pain as a pressure with no radiation in to the neck/jaw or arms. No associated shortness of breath and no pre-syncopal or syncopal symptoms. Event lasted 30-40 minutes and began while patient was at rest prompting patient to present for further evaluation. She is also endorsing headaches and had several episodes of diarrhea yesterday for which she took Imodium followed by a "uneasy" stomach with little appetite. Patient feels well today. has had no recurrence of symptoms. She's just hungry. Problem List: 1. Rheumatic fever as a child, resultant rheumatic valvular disease a. Status post mitral valve commisurotomy in 1980 b. Status post MECHANICAL mitral valve replacement in 2000, [facility] c. INR Goal 2.5 to 3.5 2. ASCVD a. Status post PCI of the RCA in 1996 b. [place] post PCI of the LCX and RCA in 2019 3. Atrial fibrillation first observed circa 2000, chronic 4. 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 Status post atrial defibrillator implantation on February 25, 2001 followed by Enrhythm pacemaker implantation on November 16, 2008 then a Medtronic dual chamber pacemaker that is programmed VVIR currently which was placed on May 23, 2016 6. Systolic and diastolic congestive heart failure 7. Hypertension 8. Dyslipidemia 9. Type II diabetes mellitus 10. CVA in 2016 11. Stage III chronic kidney disease 12. GERD 13. Obesity Outpatient Cardiology: follows with Ulices Phillips PA-C. Last visit 02/17/2024 EKG upon admission: Ventricular paced, Rate 82bpm Initial Troponin 14.1/11.0/11.8 (Normal range 0-14) HgB A1C 8.8 Telemetry reviewed demonstrates paced rhythm rates 60's. NPO awaiting echocardiogram and cardiology recommendations. Allergies Allergy/AdvReac Type Severity Reaction Status Date / Time morphine Allergy Unknown vomiting Unverified 05/11/24 22:07 oxycodone Allergy Unknown vomiting Unverified 05/11/24 22:07 adhesive AdvReac Unknown Unknown Verified 05/11/24 22:07 adhesive tape AdvReac Unknown Unknown Verified 05/11/24 22:07 codeine AdvReac Unknown Unknown Verified 05/11/24 22:07 propoxyphene AdvReac Unknown Unknown Verified 05/11/24 22:07 [From RamilaFrench] aspirin AdvReac Gastrointestinal Verified 05/11/24 22:07 Upset Home Medications Medication Instructions Recorded Confirmed Type atorvastatin 40 mg tablet 40 mg PO QAM 09/02/23 05/11/24 History clopidogrel 75 mg tablet 75 mg PO DAILY 09/02/23 05/11/24 History diltiazem HCl 120 mg 120 mg PO DAILY 09/02/23 05/11/24 History capsule,extended release 24 hr fluoxetine 20 mg capsule 20 mg PO DAILY 09/02/23 05/11/24 History fluticasone fur. 100 mcg-umeclid 1 inh inhalation QAM 09/02/23 05/11/24 History 62.5 mcg-vilant 25 mcg inhalat.powder (Trelegy Ellipta) furosemide 40 mg tablet 80 mg PO QAM 09/02/23 05/11/24 History insulin aspart U-100 100 unit/mL 10 sliding scale dose subcut UD 09/02/23 05/11/24 History subcutaneous solution (Novolog U-100 Insulin aspart) metoprolol succinate 50 mg 50 mg PO DAILY 09/02/23 05/11/24 History tablet,extended release 24 hr omeprazole 20 mg capsule,delayed 20 mg PO DAILYBB 09/02/23 05/11/24 History release spironolactone 25 mg tablet 25 mg PO BID 09/02/23 05/11/24 History trazodone 50 mg tablet 50 mg PO HS 09/02/23 05/11/24 History acetaminophen 325 mg tablet 650 mg PO Q4H PRN Fever Or Pain 05/11/24 05/11/24 History (Tylenol) albuterol sulfate 2.5 mg/3 mL 2.5 mg inhalation Q6H PRN 05/11/24 05/11/24 Hi story (0.083 %) solution for nebulization Shortness Of Breath Or Wheezing albuterol sulfate 90 mcg/actuation 2 inh inhalation Q4H PRN Shortness 05/11/24 05/11/24 History breath activated powder inhaler Of Breath Or Wheezing calcium carbonate 600 mg-vitamin 1 tab PO QAM 05/11/24 05/11/24 History D3 5 mcg (200 unit) tablet ezetimibe 10 mg tablet 10 mg PO DAILY 05/11/24 05/11/24 History ferrous sulfate 325 mg (65 mg 325 mg PO QAM 05/11/24 05/11/24 History iron) tablet insulin degludec 100 unit/mL (3 42 unit subcut HS 05/11/24 05/11/24 History mL) subcutaneous pen (Tresiba FlexTouch U-100 insulin) lutein 25 mg-zeaxanthin 5 mg 1 cap PO DAILY 05/11/24 05/11/24 History capsule (Ocuvite Lutein) magnesium oxide 400 mg (241.3 mg 400 mg PO DAILY 05/11/24 05/11/24 History magnesium) tablet multivitamin 1 tab PO DAILY 05/11/24 05/11/24 History omega-3 1,050 ar-scn-jpr-dpa-fish 2 cap PO HS 05/11/24 05/11/24 History oil 1,200 mg capsule (Willard-3 (with docosapentaenoic acid)) sennosides 8.6 mg capsule (senna) 8.6 mg PO DAILY PRN Constipation 05/11/24 05/11/24 History warfarin 5 mg tablet 5 mg PO 3XWK 05/11/24 05/11/24 History warfarin 5 mg tablet 10 mg PO 4XWK 05/11/24 05/11/24 History Patient History Medical History (Updated 05/12/24 @ 11:45 by FABIOLA Borges) Presence of arterial stent Surgical History (Updated 10/07/23 @ 00:10 by Fredy Marr) Previous back surgery H/O: section History of cholecystectomy Hx of CABG H/O: hysterectomy Family History (Updated 12/09/19 @ 11:17 by Liliana Gupta PA-C) Mother Hypertension Hyperlipemia Diabetes Stroke Father Stroke Social History Smoking Status: Former smoker Tobacco Type: Cigarettes Smoking End Date: 2000; Hx Alcohol Use: No Hx Substance Use: No Preferred Language: Slovak Communication Ability: Effective Head Athletic Trainer/Strength Coach Required: No Beliefs That Will Affect Care: None Current Living Situation: Family Current Living Situation Comment: lives with son Other Information That Helps Us Care for You: No Feels Safe at Home: Yes Safety Concerns: Feels Safe At This Time Assistive Devices: Cane, Glasses, Oxygen - Continuous and Walker Review of Systems Review of Systems: All systems reviewed & are unremarkable except as noted in HPI & below Physical Exam Constitutional: well developed, well nourished and + overweight; no acute distress and not ill appearing Neck: normal visual inspection and trachea midline Respiratory: normal respiratory effort, lungs clear to auscultation normal respiratory effort; no respiratory distress, no labored breathing and no cough Cardiovascular: Rate/Rhythm: regular rate and regular rhythm (V-paced) Heart Sounds: normal S1, normal S2 and + murmur (+1/6 systolic ) Vessels: no JVD Extremities: no edema Skin: no rashes, warm and dry Psychiatric: A+Ox3, euthymic affect Results & Data Vital Signs (Past 12 Hours) Vital Signs Temp Pulse Pulse Pulse Resp BP BP 05/12/24 07:51 36.4 C L 69 18 115/66 05/12/24 02:15 05/12/24 02:11 36.6 C 64 18 05/12/24 01:30 124/55 L 05/12/24 01:27 73 18 117/78 05/12/24 01:09 80 20 117/78 05/12/24 00:30 62 19 133/54 L 05/12/24 00:24 64 05/12/24 00:00 61 15 133/56 L 05/11/24 23:30 120/58 L 05/11/24 23:03 60 17 125/55 L 05/11/24 22:43 65 13 05/11/24 21:36 62 15 05/11/24 20:39 36.8 C 74 20 05/11/24 20:39 36.8 C 77 20 145/74 H 05/11/24 20:39 05/11/24 20:38 05/11/24 20:38 05/11/24 20:35 87 BP Pulse Ox O2 Del Method O2 Flow Rate 05/12/24 07:51 97 Nasal Cannula 3 05/12/24 02:15 Nasal Cannula 3 05/12/24 02:11 95/48 L 98 Nasal Cannula 3 05/12/24 01:30 05/12/24 01:27 96 Nasal Cannula 3 05/12/24 01:09 98 05/12/24 00:30 97 05/12/24 00:24 05/12/24 00:00 97 Room Air 05/11/24 23:30 05/11/24 23:03 99 05/11/24 22:43 115/42 L 99 Nasal Cannula 3 05/11/24 21:36 123/58 L 98 Nasal Cannula 3 05/11/24 20:39 145/74 H 98 Room Air 05/11/24 20:39 97 Nasal Cannula 3 05/11/24 20:39 Nasal Cannula 3 05/11/24 20:38 98 Nasal Cannula 3 05/11/24 20:38 98 Nasal Cannula 3 05/11/24 20:35 Laboratory Results Cardiac Enzymes 05/11/24 05/11/24 05/12/24 Range/Units 20:39 22:28 05:30 AST 23 (13-39) U/L Troponin I High Sens 14.1 H 11.0 11.8 (0-14) pg/ml Coagulation 05/12/24 Range/Units 05:30 PT 35.3 H (9.0-12.0) Seconds CBC 05/11/24 05/12/24 Range/Units 20:39 05:30 WBC 8.76 6.70 (4.8-10.8) K/ul RBC 4.01 L 3.78 L (4.20-5.40) M/uL Hgb 11.8 L 11.0 L (12.0-16.0) g/dl Hct 36.1 L 34.0 L (37.0-47.0) % Plt Count 267 212 (130-400) K/uL Neut # (Auto) 5.44 4.04 (1.40-6.50) K/uL Lymph # (Auto) 2.21 1.80 (1.20-3.40) K/uL [place] # (Auto) 0.82 H 0.63 H (0.11-0.59) K/uL Eos # (Auto) 0.20 0.18 (0.00-0.50) K/uL Baso # (Auto) 0.05 0.04 (0.00-0.20) K/uL Comprehensive Metabolic Panel 05/11/24 05/12/24 Range/Units 20:39 05:30 Sodium 139 136 (136-145) mmol/L Potassium 4.2 4.3 (3.5-5.1) mmol/L Chloride 100 101 (98-107) mmol/L Carbon Dioxide 32 30 (21-32) mmol/L BUN 40 H 43 H (6-23) mg/dl Creatinine 1.97 H 2.00 H (0.6-1.2) mg/dl Glucose 140 H 257 H (70-99(Fasting)) mg/dl Calcium 9.4 8.6 (8.6-10.3) mg/dl AST 23 (13-39) U/L ALT 16 (7-52) U/L Alkaline Phosphatase 76 (34-104) U/L Total Protein 7.3 (6.0-8.3) gm/dl Albumin 3.9 (3.4-5.0) gm/dl Intake and Output 05/11/24 05/12/24 05/12/24 22:59 06:59 14:59 Other: Other Intake Source npo Weight 85.3 kg 96.479 kg Weight Measurement Method Built in [facility] Built in [facility] (4) Atrial fibrillation Atrial fibrillation type: permanent Qualified Code(s): I48.21 - Permanent atrial fibrillation
[2024-05-12 08:30] LABS: Estimated Average Glucose 206 mg/dl; Hemoglobin A1C 8.8 % (4.5-5.6)
[2024-05-12] MEDS ORDERED: NON-FORMULARY MEDICATION (Fluticasone-Umeclidin-Vilanter [Trelegy Ellipta] 100-62.5-25 mcg INH SCH (09:00)
[2024-05-12] MEDS ORDERED: NON-FORMULARY MEDICATION (Lutein-Zeaxanthin [Ocuvite Lutein 25] 25-5 mg Capsule) PO SCH (09:00)
[2024-05-12] MEDS: cefTRIAXone SODIUM 2,000 MG/50 ML BAG IV SCH (11:50)
--- NOTE | 2024-05-12 12:55 | Communication Note ---
Date of Service: May 12, 2024 Patient was seen and examined at bedside. 79-year-old female with PMH of type 2 diabetes, CKD stage III, hyperlipidemia, history of hypokalemia, chronic respiratory failure with hypoxia on home oxygen 3 L 31/03, subclinical hypothyroidism, COPD, paroxysmal atrial fibrillation, chronic diastolic CHF, history of CAD s/p stents, morbid obesity, drug-induced constipation, GERD, degenerative disc disease, osteoporosis, chronic pain syndrome, depression, history of mitral valve replacement with mechanical valve, who lives at home with her son and family and ambulates mostly with a cane comes because of chest pain. Around 7 PM on 05/11/24, patient noticed chest pain in central chest radiating to the back about 5/10 in severity. Patient was sitting when she had chest pain and it lasted for about half an hour to 40 minutes. During the episode she was nauseous. She is always short of breath because of COPD. Vision is okay. No earache. No runny nose. No sore throat. No recent use of antibiotics. Patient thinks she has UTI as she having increased frequency and burning micturition. Denies any fevers. She is being managed for the following: Chest pain rule out ACS: Patient comes in with central chest pain radiating to back. Patient with significant cardiac history. Admitting troponin minimally elevated at 14, down trended. EKG with ventricular paced rhythm. Patient reports no chest pain at bedside exam today. Cardiology evaluating, await echo. Plan for pacemaker interrogation. Continue home cardiac medications. Acute UTI: Patient presenting with pain and burning while passing urine. UA suggestive of UTI, follow urine culture. And Rocephin 05/12, continue. JORGE on CKD stage III: Baseline creatinine 1.6, Admitting Cr of 1.9. Monitor. Avoid nephrotoxics. Gentel IVF. Other chronic medical conditions: Continue with/resume home meds as when able. History of CAD s/p stents: On statin, Plavix, and metoprolol succinate Chronic respiratory failure on home oxygen 3 L/ History of COPD: Continue home inhalers Type 2 diabetes: Sliding scale. A1c 8.8. perinatal educator consult. Hyperlipidemia: On statin Chronic diastolic CHF: On Lasix and spironolactone hold given JORGE. Closely monitor labs and clinically. History of paroxysmal atrial fibrillation: On metoprolol and Coumadin. Follow PT/INR History of mechanical mitral valve replacement: On Coumadin. Follow PT/INR. I NR 3.6, hold today's coumadin dose. DVT prophylaxis: On Coumadin follow PT/INR Disposition: Med/telemetry Full code. For detailed information on the patient, refer to today's H&P note.
--- NOTE | 2024-05-12 13:37 | Electrocardiogram Report ---
Test Reason : Blood Pressure : */* mmHG Vent. Rate : 82 BPM Atrial Rate : 81 BPM P-R Int : * ms QRS Dur : 140 ms QT Int : 426 ms P-R-T Axes : * -72 108 degrees QTcB Int : 497 ms Ventricular-paced rhythm Abnormal ECG When compared with ECG of 01-Sep-2023 20:46, Vent. rate has decreased by 4 bpm Confirmed by John Paul Castillo ([id number]) on 05/12/2024 1:37:43 PM Referred By: Confirmed By: John Paul Castillo
--- NOTE | 2024-05-12 13:41 | Electrocardiogram Report ---
Test Reason : Blood Pressure : */* mmHG Vent. Rate : 61 BPM Atrial Rate : 312 BPM P-R Int : * ms QRS Dur : 182 ms QT Int : 542 ms P-R-T Axes : * -70 101 degrees QTcB Int : 545 ms Poor data quality, interpretation may be adversely affected Ventricular-paced rhythm Abnormal ECG When compared with ECG of 11-May-2024 20:32, (unconfirmed) Vent. rate has decreased by 21 bpm Confirmed by John Paul Castillo ([id number]) on 05/12/2024 1:41:35 PM Referred By: REFERRED SELF Confirmed By: John Paul Castillo
[2024-05-12] MEDS ORDERED: Nursing to Pharmacy Communication SCH (13:45)
[2024-05-12] MEDS ORDERED: WARFARIN SOD 5 MG TAB PO SCH (16:00)
[2024-05-12] MEDS: traZODone HCL 50 MG TAB PO SCH (20:53)
[2024-05-12] MEDS: LANTUS PER UNIT CHARGE SC SCH (20:54)
[2024-05-13] MEDS: ACETAMINOPHEN 325 MG TAB PO PRN (05:45)
[2024-05-13 07:26] LABS: Hematocrit (blood only) 33.1 % (37.0-47.0); Hemoglobin 10.6 g/dl (12.0-16.0); Mean Corpuscular Hemoglobin 28.6 pg (25.0-34.0); Mean Corpuscular Volume 89.5 fL (80.0-100.0); Mean Platelet Volume 10.4 fL (9.4-12.4); Platelet Count 229 K/uL (130-400); RDW Coefficient of Variation 14.6 % (11.5-14.5); RDW Standard Deviation 47.1 fL (36.4-46.3); White Blood Count 6.79 K/ul (4.8-10.8)
[2024-05-13 07:30] LABS: INR 2.9 (0.9-1.1); Prothrombin Time 28.3 Seconds (9.0-12.0)
[2024-05-13 07:34] LABS: BUN Creatinine Ratio 22.2 (10-20); Calcium 8.4 mg/dl (8.6-10.3); Creatinine Clr Calc Pharmacy 24.3 ml/min; Est GFR (Non-African American) 22.4 ml/min; Magnesium 2.1 mg/dl (1.7-2.4); Potassium 4.4 mmol/L (3.5-5.1)
--- NOTE | 2024-05-13 09:01 | Cardiology Progress Note ---
Date of Service May 13, 2024 Assessment & Plan (1) Chest pain: (2) H/O mitral valve replacement: (3) CAD (coronary artery disease): (4) Atrial fibrillation: (5) Anticoagulant long-term use: (6) Pacemaker: Plan Assessment: 79 year old female presents with acute onset chest pressure with no other associated symptoms. Resolved prior to arrival to the hospital. Request for cardiology recommendations given her prior history. Plan: Chest pain: History of CAD: -Atypical in nature and "different" when compared to prior events leading to need for PCI. -single episode lasting approx 40 minutes with no recurrence. Patient has been having significant GI upset in the 24 hours leading to her episode. -EKG with no acute changes. -Troponin with minimal abnormality, with subsequent negative serial readings. -Will obtain echocardiogram today to assess overall structure and function. If no acute abnormalities will allow for patient to eat. -Continue to monitor on telemetry during course of hospitalization. Recommend obtaining pacer interrogation to ensure she was not having any type of ectopy or arrhythmia during time of event given her history to suggest her symptoms. -BP stable Continue GDMT with Atorvastatin, Plavix, Zetia, spironolactone, and toprol xl. Not on ASA therapy as patient is on Warfarin s/t A-fib. 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 -Obtain Pacemaker interrogation. -Continue Diltiazem, Furosemide, Toprol xl, and warfarin as per current regimen. -Review of telemetry shows no acute events. -Euvolemic on exam. -BP stable. Discussed plan to review echocardiogram to determine if any further cardiac testing is warranted. 05/13/2024: -Patient is stable from a cardiac perspective. Denies any recurrence of symptoms. -VS stable. -Echocardiogram reviewed and discussed with patient showing preserved LVEF and no wall motion abnormalities. -Continue GDMT with Atorvastatin, Plavix, Zetia, spironolactone, and toprol xl. Not on ASA therapy as patient is on Warfarin s/t A-fib. -Continue Diltiazem, Furosemide and Warfarin in regards to known chronic A-fib. -No further cardiac testing is needed during course of hospital stay. -Will contact [facility] to assist in arranging OP follow up within 2- 4 weeks -Patient is ok from a cardiac standpoint for discharge, when ok with primary team. This has been discussed with hospitalist. Case has been discussed with Dr. Gotti. Further recommendations regarding plan of care as per his assessment. I spent a total of 30 minutes on the date of service in preparation, delivery, documentation of the care provided to the patient excluding any time spent in the performance of separately billed services. FABIOLA Borges [facility] Admission and Anticipated Discharge Date Admission Date: May 12, 2024 Supervising Physician Co-Signing Physician Notes I have personally performed a history and physical examination on the patient. I have reviewed the advance practitioner's documentation, and I agree with, and take responsibility for the plan of care. 79-year-old female admitted with episode of chest discomfort. ECG nondiagnostic due to ventricular pacing. No significant troponin elevation to suggest acute coronary syndrome. Review of bedside 2D transthoracic echocardiogram demonstrates preserved LV systolic function, no regional wall motion abnormality, normally functioning mechanical mitral valve prosthesis. INR therapeutic. Patient asymptomatic since admission. No dysrhythmia on telemetry. No further inpatient cardiac testing or intervention warranted at this time. Outpatient cardiology follow-up in 2 to 4 weeks. Cardiology will sign off. Please call with additional concerns/questions. I spent a total of 25 minutes on the date of service in preparation, delivery, and documentation of the care provided to this patient, excluding any time spent in the performance of separately billed services. Hector Gotti DO, [facility] Subjective 05/13/2024: Patient seen and examined in follow up today. Feeling well from a cardiac perspective. Denies any recurrence of chest pain/discomfort. No acute concerns Labs, vitals, diagnostics, telemetry and documentation reviewed. Telemetry reviewed showing paced rates 60-70's. No acute events overnight Review of Systems Review of Systems: All systems reviewed & are unremarkable except as noted in HPI & below Physical Exam Constitutional: well developed, well nourished and + overweight; no acute distress and not ill appearing Neck: normal visual inspection and trachea midline Respiratory: normal respiratory effort, lungs clear to auscultation normal respiratory effort; no respiratory distress, no labored breathing and no cough Cardiovascular: Rate/Rhythm: regular rate and regular rhythm (V-paced) Heart Sounds: normal S1, normal S2 and + murmur (+1/6 systolic ) Vessels: no JVD Extremities: no edema Skin: no rashes, warm and dry Psychiatric: A+Ox3, euthymic affect Results & Data Vital Signs (Past 12 Hours) Vital Signs Temp Pulse Pulse Resp BP BP Pulse Ox 05/13/24 08:02 36.7 C 63 16 104/57 L 97 05/13/24 04:53 36.8 C 64 18 99/55 L 99 05/12/24 23:42 37.0 C 68 18 99/58 L 100 05/12/24 22:27 73 05/12/24 21:50 O2 Del Method O2 Flow Rate 05/13/24 08:02 Nasal Cannula 2.5 05/13/24 04:53 Nasal Cannula 2 05/12/24 23:42 Nasal Cannula 2 05/12/24 22:27 05/12/24 21:50 Nasal Cannula 3 Laboratory Results Cardiac Enzymes 05/12/24 Range/Units 16:45 Troponin I High Sens 11.8 (0-14) pg/ml Coagulation 05/13/24 Range/Units 06:27 PT 28.3 H (9.0-12.0) Seconds CBC 05/13/24 Range/Units 06:27 WBC 6.79 (4.8-10.8) K/ul RBC 3.70 L (4.20-5.40) M/uL Hgb 10.6 L (12.0-16.0) g/dl Hct 33.1 L (37.0-47.0) % Plt Count 229 (130-400) K/uL Comprehensive Metabolic Panel 05/13/24 Range/Units 06:27 Sodium 137 (136-145) mmol/L Potassium 4.4 (3.5-5.1) mmol/L Chloride 101 (98-107) mmol/L Carbon Dioxide 27 (21-32) mmol/L BUN 45 H (6-23) mg/dl Creatinine 2.03 H (0.6-1.2) mg/dl Glucose 175 H (70-99(Fasting)) mg/dl Calcium 8.4 L (8.6-10.3) mg/dl Intake and Output 05/12/24 05/13/24 05/13/24 22:59 06:59 14:59 Intake Total 290 / 411 120 / 411 50 / 50 Balance 290 / 411 120 / 411 50 / 50 Intake: IV 50 / 50 50 / 50 cefTRIAXone SODIUM 2,000 mg In 50 / 50 50 / 50 50 ml @ 100 mls/hr IV Q24H [facility] Rx#:[id number] Oral 240 / 361 120 / 361 Other: Weight 96.4 kg Weight Measurement Method Built in [facility] (4) Atrial fibrillation Atrial fibrillation type: permanent Qualified Code(s): I48.21 - Permanent atrial fibrillation
[2024-05-13] MEDS: SODIUM CHLORIDE 0.9% 1,000 ML IV SCH (09:50)
--- NOTE | 2024-05-13 11:00 | Electrocardiogram Report ---
Test Reason : Blood Pressure : */* mmHG Vent. Rate : 73 BPM Atrial Rate : 66 BPM P-R Int : * ms QRS Dur : 170 ms QT Int : 478 ms P-R-T Axes : * -69 101 degrees QTcB Int : 526 ms Ventricular-paced rhythm Abnormal ECG When compared with ECG of 12-May-2024 05:52, Vent. rate has increased by 12 bpm Confirmed by John Paul Castillo ([id number]) on 05/13/2024 11:00:05 AM Referred By: REFERRED SELF Confirmed By: John Paul Castillo
--- NOTE | 2024-05-13 13:24 | Hospitalist Progress Note ---
Date of Service May 13, 2024 Assessment & Plan (1) Chest pain: Plan 79-year-old female with PMH of type 2 diabetes, CKD stage III, hyperlipidemia, history of hypokalemia, chronic respiratory failure with hypoxia on home oxygen 3 L 31/03, subclinical hypothyroidism, COPD, paroxysmal atrial fibrillation, chronic diastolic CHF, history of CAD s/p stents, morbid obesity, drug-induced constipation, GERD, degenerative disc disease, osteoporosis, chronic pain syndrome, depression, history of mitral valve replacement with mechanical valve, who lives at home with her son and family and ambulates mostly with a cane comes because of chest pain. Around 7 PM on 05/11/24, patient noticed chest pain in central chest radiating to the back about 5/10 in severity. Patient was sitting when she had chest pain and it lasted for about half an hour to 40 minutes. During the episode she was nauseous. She is always short of breath because of COPD. Vision is okay. No earache. No runny nose. No sore throat. No recent use of antibiotics. Patient thinks she has UTI as she having increased frequency and burning micturition. Denies any fevers. She is being managed for the following: Chest pain rule out ACS: Patient comes in with central chest pain radiating to back. Patient with significant cardiac history. Admitting troponin minimally elevated at 14, down trended. EKG with ventricular paced rhythm. Echo with EF of 55 to 60%, no regional wall motion abnormality. Mild concentric LVH. Left atrium is severely dilated. Patient reports no chest pain In the hospital. Cardiology evaluated, appreciate recommendation. Continue with home cardiac medications. Follow-up with cardiology in 2 to 4 weeks time of discharge. Acute UTI: Patient presenting with pain and burning while passing urine. UA suggestive of UTI, follow urine culture- Final culture and sensitivity pending. Continue with Rocephin 05/12. JORGE on CKD stage III: Baseline creatinine 1.6, Admitting Cr of 1.9. Monitor. Avoid nephrotoxics. Gentel IVF. Other chronic medical conditions: Continue with/resume home meds as when able. History of CAD s/p stents: On statin, Plavix, and metoprolol succinate Chronic respiratory failure on home oxygen 3 L/ History of COPD: Continue home inhalers Type 2 diabetes: Sliding scale. A1c 8.8. insecticide supervisor consult. Hyperlipidemia: On statin Chronic diastolic CHF: On Lasix and spironolactone hold given JORGE. Closely monitor labs and clinically. History of paroxysmal atrial fibrillation: On metoprolol and Coumadin. Follow PT/INR History of mechanical mitral valve replacement: On Coumadin. Follow PT/INR. I NR 3.6, hold today's coumadin dose. DVT prophylaxis: On Coumadin follow PT/INR Disposition: Med/telemetry. PT/OT, CM to assist with DC plan. Likely DC in next 1 to 2 days. Full code. Admission and Anticipated Discharge Date Admission Date: May 12, 2024 Subjective Patient was seen and examined at bedside. patient was lying in bed, on 2L NC O2, NAD, resting comfortably. Patient reports resolution of diarrhea, patient reports no further chest pain while in the hospital. Patient denies any new acute issues. Physical Exam Physical Exam: General- Not in distress. Head- atraumatic Eyes- PERRL. ENT- oropharynx clear Neck- supple, no JVD. Lungs- clear to auscultation no wheezing or crackles Heart- regular rhythm; no murmur, no gallop. Abdomen- normal bowel sounds, soft, nontender, no distension Extremities- no ble edema, no erythema seen Neuro- alert, oriented PERRL, no facial palsy; no dysarthria; moves extremities. Results & Data Results & Data Vital Signs (Past 12 Hours) Vital Signs Temp Pulse Pulse Resp BP BP Pulse Ox 05/13/24 11:52 36.6 C 60 18 101/48 L 98 05/13/24 08:02 36.7 C 63 16 104/57 L 97 05/13/24 08:00 81 05/13/24 08:00 81 05/13/24 04:53 36.8 C 64 18 99/55 L 99 O2 Del Method O2 Flow Rate 05/13/24 11:52 Nasal Cannula 2.5 05/13/24 08:02 Nasal Cannula 2.5 05/13/24 08:00 05/13/24 08:00 05/13/24 04:53 Nasal Cannula 2
[2024-05-13] MEDS: WARFARIN SOD 10 MG TAB PO SCH (17:40)
[2024-05-14 08:07] VITALS: TEMP 97.9
[2024-05-14 08:07] LABS: BUN Creatinine Ratio 24.5 (10-20); Calcium 8.5 mg/dl (8.6-10.3); Creatinine Clr Calc Pharmacy 26.5 ml/min; Est GFR (African American) 28.5 ml/min; Est GFR (Non-African American) 24.6 ml/min; Potassium 4.6 mmol/L (3.5-5.1)
[2024-05-14 08:15] LABS: INR 1.7 (0.9-1.1); Prothrombin Time 17.8 Seconds (9.0-12.0)
[2024-05-14 12:00] VITALS: RESP 20; O2SAT 99
--- NOTE | 2024-05-14 12:22 | Discharge Summary ---
Date of Service May 14, 2024 Admission HPI Per Admitting Provider 79-year-old female with past medical history significant for type 2 diabetes, CKD stage III, hyperlipidemia, history of hypokalemia, chronic respiratory failure with hypoxia on home oxygen 3 L 31/03, subclinical hypothyroidism, COPD, paroxysmal atrial fibrillation, chronic diastolic CHF, history of CAD s/p stents, morbid obesity, drug-induced constipation, GERD, degenerative disc disease, osteoporosis, chronic pain syndrome, depression, history of mitral valve replacement with mechanical valve, who lives at home with her son and family and ambulates mostly with a cane comes because of chest pain. Around 7 PM patient noticed chest pain in central chest radiating to the back about 5/10 in severity. Patient was sitting when she had chest pain and it lasted for about half an hour to 40 minutes. And when she walked to the EMS the chest pain returned but subsided since she is resting. Currently no chest pain. During the episode she was nauseous. She is always short of breath because of COPD. Lately she is having headaches. Vision is okay. No earache. No runny nose. No sore throat. Appetite is not great. States lost few pounds. No abdominal pain. Last night she had lot of diarrhea and she took Imodium. No recent use of antibiotics. Patient thinks she has UTI as she having increased frequency and burning micturition. Denies any fevers. Currently resting comfortably and hemodynamically stable. Family in the room. Past medical history as mentioned above. Past surgical history. Cardiac stent placement. Appendectomy. . Cholecystectomy. Mitral valve replacement. Abdominal hysterectomy removal of tubes Social history. . Lives with her son and family. Quit smoking 2000. Smoked 1 pack a day for 44 years. Currently no alcohol use. No drug use. Family history. Sister had colon cancer. Diabetes. Brother has diabetes. Mother had diabetes. Hypertension. Father had hypertension and stroke. Daughter has A-fib and pacer. Admission Exam Per Admitting Provider General- Not in distress. Head- atraumatic Eyes- PERRL. ENT- oropharynx clear Neck- supple, no JVD. Lungs- clear to auscultation no wheezing or crackles Heart- regular rhythm; no murmur, no gallop. Abdomen- normal bowel sounds, soft, nontender, no distension Extremities- b/l pretibial edema present, no erythema seen Neuro- alert, oriented PERRL, no facial palsy; no dysarthria; moves extremities. Principal Diagnosis Chest pain rule out ACS Acute UTI JORGE with CKD stage III Discharge Exam General- Not in distress. Head- atraumatic Eyes- PERRL. ENT- oropharynx clear Neck- supple, no JVD. Lungs- clear to auscultation no wheezing or crackles Heart- regular rhythm; no murmur, no gallop. Abdomen- normal bowel sounds, soft, nontender, no distension Extremities- no ble edema, no erythema seen Neuro- alert, oriented PERRL, no facial palsy; no dysarthria; moves extremities. Discharge Data Allergies Allergy/AdvReac Type Severity Reaction Status Date / Time morphine Allergy Unknown vomiting Unverified 05/11/24 22:07 oxycodone Allergy Unknown vomiting Unverified 05/11/24 22:07 adhesive AdvReac Unknown Unknown Verified 05/11/24 22:07 adhesive tape AdvReac Unknown Unknown Verified 05/11/24 22:07 codeine AdvReac Unknown Unknown Verified 05/11/24 22:07 propoxyphene AdvReac Unknown Unknown Verified 05/11/24 22:07 [From Darvocet-N] aspirin AdvReac Gastrointestinal Verified 05/11/24 22:07 Upset Consultations 05/12/24 00:04 ED Decision to Admit Stat 05/12/24 08:00 Consult Cardiology Routine Hospital Course (1) Chest pain: Plan 79-year-old female with PMH of type 2 diabetes, CKD stage III, hyperlipidemia, history of hypokalemia, chronic respiratory failure with hypoxia on home oxygen 3 L 31/03, subclinical hypothyroidism, COPD, paroxysmal atrial fibrillation, chronic diastolic CHF, history of CAD s/p stents, morbid obesity, drug-induced constipation, GERD, degenerative disc disease, osteoporosis, chronic pain syndrome, depression, history of mitral valve replacement with mechanical valve, who lives at home with her son and family and ambulates mostly with a cane comes because of chest pain. Around 7 PM on 05/11/24, patient noticed chest pain in central chest radiating to the back about 5/10 in severity. Patient was sitting when she had chest pain and it lasted for about half an hour to 40 minutes. During the episode she was nauseous. She is always short of breath because of COPD. Vision is okay. No earache. No runny nose. No sore throat. No recent use of antibiotics. Patient thinks she has UTI as she having increased frequency and burning micturition. Denies any fevers. She was managed for the following: Chest pain rule out ACS: Patient comes in with central chest pain radiating to back. Patient with significant cardiac history. Admitting troponin minimally elevated at 14, down trended. EKG with ventricular paced rhythm. Echo with EF of 55 to 60%, no regional wall motion abnormality. Mild concentric LVH. Left atrium is severely dilated. Patient reports no chest pain In the hospital. Cardiology evaluated, appreciate recommendation. Continue with home cardiac medications. Follow-up with cardiology in 2 to 4 weeks time of discharge. Acute UTI: Patient presenting with pain and burning while passing urine. UA suggestive of UTI, Urine culture and sensitivity reviewed.Continue with Rocephin 05/12. To p.o. antibiotic on discharge to complete the course. JORGE on CKD stage III: Baseline creatinine 1.6, Admitting Cr of 1.9. Monitor. Avoid nephrotoxics. Creatinine downtrending, hold diuretics for next 2 days upon discharge. Follow-up with PCP within a week time for blood work and further assessment. Other chronic medical conditions: Continue with/resume home meds as when able. History of CAD s/p stents: On statin, Plavix, and metoprolol succinate Chronic respiratory failure on home oxygen 3 L/ History of COPD: Continue home inhalers Type 2 diabetes: Sliding scale. A1c 8.8. life educator consult. Hyperlipidemia: On statin Chronic diastolic CHF: On Lasix and spironolactone hold given JORGE. Closely monitor labs and clinically. History of paroxysmal atrial fibrillation: On metoprolol and Coumadin. Follow PT/INR History of mechanical mitral valve replacement: On Coumadin. Follow PT/INR. Follow-up with Coumadin clinic upon discharge. DVT prophylaxis: On Coumadin follow PT/INR Disposition: Med/telemetry. PT/OT, CM to assist with DC plan. Likely DC in next 1 to 2 days. Full code. PT/OT evaluated, recommends home. Patient is being discharged to home with family support with following instruction at the point of discharge: Follow-up with your primary care physician within a week time and likely you will need labs CBC/CMP/magnesium/phosphorus. Follow-up with cardiology in 2 to 4 weeks time upon discharge. Continue with your cardiac medications as prescribed. You will be discharged on antibiotic to complete course for UTI. Follow-up with Coumadin clinic in 2 to 3 days time upon discharge. Take your medications as prescribed. Please make sure that you are able to get your medications today by calling your pharmacy before you leave the hospital so that your treatment continuity is not broken. Home Health Attestation I certify that this patient is under my care and that I, or a physicians portfolio assistant working with me, had a face to-face encounter that meets the home health [id number] encounter requirements with this patient. The encounter with the patient was in whole, or in part, for the following medical condition, which is the primary reason for home health care (list medical condition): I certify that, based on my findings, the following services are medically necessary home health services: My clinical findings support the need for the above services because: Further, I certify that my clinical findings support that this patient is homebound (i.e. absences from home require considerable and taxing effort and are for medical reasons or denominational services or infrequently or of short duration when for other reasons) because: Certification for Home Health Services: Based on the above findings, I certify that this patient is confined to the home and needs intermittent shelter care, physical therapy and/or speech therapy or continues to need occupational therapy. The patient is under my care, and I have initiated the establishment of the plan of care. This patient will be followed by a physician who will periodically review the plan of care. Total Time Total Time Spent Total Time Spent (In Minutes): 45 Discharge Plan Discharge Items Patient Disposition: Home - Self-Care Reason For Visit: CHEST PAIN Discharge Diagnosis: Chest pain rule out ACS Acute UTI JORGE with CKD stage III Activity: Resume your previous activity Non-emergency contact: Primary Care Provider Call non-emergency contact if: you have any medication questions and your symptoms worsen Follow-up/Referrals: Kym Brady PA-C [Physician Home Manager] - (Date & Time 05/20/2024 10:00 AM Provider Kym Brady PA-C Department Cardiology [facility] ) Edith Alvarez MD [Primary Care Provider] - (Date & Time 05/19/2024 11:10 AM Provider Linda Martin DO Department Family Medicine [facility] ) Diet: Carb Consistent or DM2 and Heart Healthy Addtl Attending Provider Instructions: Follow-up with your primary care physician within a week time and likely you will need labs CBC/CMP/magnesium/phosphorus. Follow-up with cardiology in 2 to 4 weeks time upon discharge. Continue with your cardiac medications as prescribed. You will be discharged on antibiotic to complete course for UTI. Follow-up with Coumadin clinic in 2 to 3 days time upon discharge. Take your medications as prescribed. Please make sure that you are able to get your medications today by calling your pharmacy before you leave the hospital so that your treatment continuity is not broken. Pending Studies at Discharge: No Stand-Alone Forms: My [facility] [employer], Smoking Cessation Medications and DC Order Prescriptions: New cefdinir 300 mg capsule 300 mg PO DAILY 4 Days Qty: 4 0RF Probiotic 3 billion cell capsule 3,000 mmu cells PO DAILY 14 Days Qty: 14 0RF Rx Instructions: administer with a meal Continued atorvastatin 40 mg tablet 40 mg PO QAM trazodone 50 mg tablet 50 mg PO HS metoprolol succinate 50 mg tablet extended release 24 hr 50 mg PO DAILY clopidogrel 75 mg tablet 75 mg PO DAILY insulin aspart U-100 [Novolog U-100 Insulin aspart] 100 unit/mL solution 10 sliding scale dose subcut UD Rx Instructions: 10units with breakfast and 10units with supper omeprazole 20 mg capsule,delayed release(DR/EC) 20 mg PO DAILYBB diltiazem HCl 120 mg capsule,extended release 24hr 120 mg PO DAILY fluoxetine 20 mg capsule 20 mg PO DAILY Trelegy Ellipta 100-62.5-25 mcg blister with device 1 inh INHALATION QAM insulin degludec [Tresiba FlexTouch U-100] 100 unit/mL (3 mL) insulin pen 42 unit SUBCUT HS magnesium oxide 400 mg (241.3 mg magnesium) Tablet 400 mg PO DAILY calcium carbonate-vitamin D3 [Calcium + D] 600 mg-5 mcg (200 unit) Tablet 1 tab PO QAM lutein-zeaxanthin [Ocuvite Lutein 25] 25-5 mg Capsule 1 cap PO DAILY Marathon-3 (with dpa) 1,050-1,200 mg Capsule 2 cap PO HS multivitamin [Multiple Vitamin] Tablet 1 tab PO DAILY acetaminophen [Tylenol] 325 mg Tablet 650 mg PO Q4H PRN (Reason: Fever Or Pain) ferrous sulfate 325 mg (65 mg iron) Tablet 325 mg PO QAM warfarin 5 mg Tablet 10 mg PO 4XWK Rx Instructions: TAKE TWO 5MG TABLETS EVERY FRIDAY/FRIDAY/FRIDAY/FRIDAY. warfarin 5 mg Tablet 5 mg PO 3XWK Rx Instructions: TAKE 5MG EVERY FRIDAY/FRIDAY/FRIDAY. senna 8.6 mg Capsule 8.6 mg PO DAILY PRN (Reason: Constipation) albuterol sulfate 2.5 mg /3 mL (0.083 %) Solution For Nebulization 2.5 mg INHALATION Q6H PRN (Reason: Shortness Of Breath Or Wheezing) ezetimibe 10 mg tablet 10 mg PO DAILY albuterol sulfate 90 mcg/actuation Aerosol Powdr Breath Activated 2 inh INHALATION Q4H PRN (Reason: Shortness Of Breath Or Wheezing) Held furosemide 40 mg tablet 80 mg PO QAM Hold Instructions: Resume on 05/16/24. spironolactone 25 mg tablet 25 mg PO BID Hold Instructions: Resume on 05/16/24. Discharge Orders: Discharge Order (Routine); Ordered 05/14/24 Ordered By: Sallie Anna/Other Patient Handouts: Managing Type 2 Diabetes Admission Data Admit Date/Time: 05/13/24 13:23 Attending Provider: Sallie Dawkins Admit Provider: Bobby rOellana Primary Care Provider: Edith Alvarez Other Providers: Bobby Orellana; Hector Gotti
[2024-05-14 13:21] VITALS: BP 93/56; PULSE 65
--- NOTE | 2024-05-15 13:10 | Coding Query ---
CHEST PAIN To promote full compliance with coding requirements relating to patient care physician participation is requested in all cases of white kid buffer uncertainty. Please assist us with the question(s) below: 79-year-old female with a known history of CAD presents with chest pain that has resolved prior to arrival to the hospital. The medical record reflects the following clinical evidence: Clinical Indicators: Resolved chest pain Risk Factor(s): Age, known CAD, Treatment: Plavix, warfarin, cardiology consultation, ECG, Please list a more specific chest pain diagnosis or cause of chest pain if known. Provider response: _x__Atypical Chest Pain ___CAD with angina resolved ___Other explanation of clinical findings ___Unable to determine (no explanation for clinical findings) Thank you Chiara HOWE
== END 2024-05-14 15:38 | disposition home or self-care (01) | DRG 313 ==
LOC: ED 20:26 → 2N 20:26 → SUATTDRO 05-12 00:29 → 2N 05-12 01:27

== ENCOUNTER 2024-05-22 23:40 | Inpatient (IN) ==
--- OUTSIDE RECORDS SUMMARY | 2024-05-22 23:45 | External Medical Summary | Summary of Care ---
Author Name Unknown Organization [facility] Address [address] [facility] [address] Phone [phone] Care Team Providers Care Bumboater Name Role Phone Edith Osuna MD Primary Care Prov ider Reason for Visit * Reason Comments Dosage Adjustment Via Phone (anticoag Cl inic) Encounter Details Date Type Department Care Team (Late st Contact Info) Description 05/21/2024 6:15 PM EDT Anticoagulation Centralized Clinical Pharmacy Services, Luna Sears [address] [place] [address] [place] [address] [place] [address] H/O mitral valve replacement with mechanical valve*; Paroxysmal atrial fibrillation (HCC) Allergies Active Allergy Reactions Criticality Noted Date Comments Abhinav Inhibitors Cough 12/25/2021 Aspirin 02/15/2021 "delgado" her stomach, had a GI bleed in the past Codeine 11/22/2020 Morphine 11/22/2020 Oxycodone 11/22/2020 Nausea, vomiting, chest pain Semaglutide(0.25 Or 0.5mg-Dos) Diarrhea 10/04/2022 Severe documented as of this encounter (statuses as of 05/21/2024) Medications Medication Sig Dispensed Refills Start Date End Date Status Ferrous Sulfate 325 (65 Fe) MG Oral Tablet (Feosol)Indications: anemia Take 1 Tablet by mouth daily with breakfast. 30 Tab 11/22/2020 Active Multivitamin Adult Oral TabletIndications:venegas pplementation Take by mouth 1 Tablet daily . 30 Tab 11/22/2020 Active Saline Nasal [place] 0.65 % Nasal SolutionIndications: for nasal dryness or congestion Administer 2 Sprays into each nostril in the morning and 2 Sprays at noon and 2 Sprays in the evening and 2 Sprays before bedtime. for nasal dryness or congestion. 60 mL 11/22/2020 Active Reedley 3 1200 MG Oral CapsuleIndications: [facility] [...] A1c goal of less than 8.0% ([facility]) Use to test blood sugar 3-4 times a day dx E11.9 400 Each 3 03/13/2021 Active OneTouch Verio In Vitro Strip (Glucose Blood)Indications:Ty pe 2 diabetes mellitus with hemoglobin A1c goal of less than 8.0% ([facility]) Use to test blood sugar 3-4 times a day dx e11.9 400 Strip 3 03/13/2021 Active FreeStyle Robbin 2 Sensor Use as directed. Active Magnesium Oxide 400 (240 Mg) MG Oral TabletIndications:Ch ronic diastolic CHF (congestive heart failure) ([facility]) Take 1 Tab by mouth daily. 28 Tab 5 04/19/2021 Active oxygen IN GAS Use 2 L/min(Oxygen) as directed continuous. Active Insulin Syringes (Disposable) U-100 1 MLIndications:Type 2 diabetes mellitus with hemoglobin A1c goal of less than 8.0% ([facility]) Twice a day 200 Each 1 11/23/2021 [...] times daily 300 Each 3 11/04/2023 Active Tresiba FlexTouch 100 UNIT/ML Subcutaneous Solution Pen-injector (Insulin Degludec)Indications :Type 2 diabetes mellitus with hemoglobin A1c goal of less than 8.0% ([facility]) inject under the skin 42 units before bedtime 45 mL 1 11/26/2023 Active Additional Information Patient taking differently: inject under the skin 40 units before bedtime, Reported on 05/18/2024 Atorvastatin Calcium 40 MG Oral Tablet (Lipitor) Take 1 Tablet by mouth in the morning. 90 Tablet 1 12/11/2023 Active Spironolactone 25 MG Oral Tablet (Aldactone)Indicatio ns:Chronic diastolic CHF (congestive heart failure) ([facility]) TAKE ONE TABLET BY MOUTH EVERY MORNING, AND ONE TABLET BEFORE BEDTIME 180 Tablet 1 12/25/2023 Active Metoprolol Succinate ER 50 MG Oral Tablet Extended Release 24 Hour (toPROL XL) TAKE ONE TABLET BY MOUTH EVERY DAY 90 Tablet 3 01/08/2024 5 Active Trelegy Ellipta 100-62.5-25 MCG/ACT Aerosol Powder Breath Activated (Fluticasone-Umeclid inium-Vilanterol)Ind ications:COPD, group B, by GOLD 2017 classification ([facility]) INHALE ONE PUFF BY MOUTH EVERY MORNING 180 Each 2 01/16/2024 5 Active Furosemide 40 MG Oral Tablet (Lasix)Indications:C hronic diastolic CHF (congestive heart failure) ([facility]) TAKE TWO TABLETS BY MOUTH EVERY MORNING [...] episode of recurrent major depressive disorder ([facility]) TAKE ONE CAPSULE BY MOUTH EVERY DAY 90 Capsule 3 03/17/2024 5 Active traZODone HCl 50 MG Oral Tablet (Desyrel) TAKE ONE TABLET BY MOUTH EVERY DAY AT BEDTIME 90 Tablet 2 05/12/2024 5 Active NovoLOG FlexPen 100 UNIT/ML Subcutaneous Solution Pen-injector (insulin aspart) Inject 10 Units under the skin daily before breakfast AND 10 Units daily before dinner. 15 mL 2 05/17/2024 Active Hospital, Clinic, or Other Facility Administered Medication Ordered Dose Route Frequency Start Date End Date Status Albuterol Sulfate (Proventil) (5 MG/ML) 0.5% *conc* inhalation solution 2.5 mgIndications:COPD, group B, by GOLD 2017 classification ([facility]),Chronic respiratory failure with hypoxia, on home oxygen therapy ([facility]) 2.5 mg NEBULIZER PRN 11/26/2023 11/25/2024 Acti ve Albuterol Sulfate (Proventil) (2.5 MG/3ML) 0.083% inhalation solution 2.5 mgIndications:COPD, group B, by GOLD 2017 classification ([facility]),Chronic respiratory failure with hypoxia, on home oxygen therapy ([facility]) 2.5 mg NEBULIZER PRN 11/26/2023 11/25/2024 Acti ve documented as of this encounter (statuses as of 05/21/2024) Active Problems Problem Noted Date Diagnosed Date COPD, group B, by GOLD 2017 classification 09/15 Overview: Per COPD GOLD Classification Age-related osteoporosis wit [place] current pathological fracture 02/05/2023 Last Assessment & Plan: Currently on prolia injections Chronic respiratory failure with hypoxia, on home oxygen therapy 10/04/2022 Overview: Wearing 3L continuously Last Assessment & Plan: Wearing 3L continuously Subclinical hypothyroidism 10/04/2022 History of CA (myocardial infarction) 05/31/2022 Type 2 diabetes mellitus [...] 68 11/22/2020 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 11/22/2020 Last [...] as of this encounter (statuses as of 05/21/2024) Resolved Problems Problem Noted Date Diagnosed Date Resolved Date COPD, severity to be determined 08/19/2022 09/18/2023 Overview: Per COPD GOLD Classification Last Assessment & Plan: "RED FLAG" COPD symptoms: Cough ("I get a different kind of cough than what I' have every day") Wheezing ("You can hear the whistling across the room") Medication Regimen All Classes - COLE Class D - Inhaled Fcbiideigzupzg-QZPH-TVQI Combination Inhaler ([place]) Remote Patient Monitoring Vendor: No Connected RPM Device(s): No current devices Self-Management plan Other/Additional Comments: rescue inhaler, contact [facility] Exacerbation plan Chest Xray Additional [...] as of this encounter (statuses as of 05/21/2024) Immunizations Name Administration Dates Next Due COVID-19, [...] Notes * Mary Jewell PHARM Tech - 05/21/2024 3:02 PM EDT Contacts Contact Date/Time Type Contact Phone/Fax 05/21/2024 12:25 PM EDT Phone (Outgoing) Fani Merritt "Matt" (Self) [phone] (M) Spoke with son Arya 05/21/2024 01:11 PM EDT Phone (Outgoing) Fani Merritt "Matt" (Self) [phone] (M) Left Message - Left generic voicemail/ Outgoing voicemail had no identifiers for the patient's phone number that is listed or name/ Will try again 05/21/2024 02:59 PM EDT Phone (Outgoing) Fani Merritt "Matt" (Self) [phone] (M) Spoke to Patient Subjective Patient Findings [...] communicated as noted by Pharmacist: Yes MAGGIE CHOE 05/21/2024, 3:02 PM * Liliana Green [facility] - 05/21/2024 12:52 PM EDT Images from the original note were not included. Coumadin Clinic (region specific) Objective Current Warfarin Dose As of 05/21/2024 Warfarin maintenance plan: 2.5 mg (2.5 mg x 1) every Mon, Wed, Fri; 5 mg (2.5 mg x 2) all other days INR Result As of 05/21/2024 INR goal: 2.5-3.5 INR used for dosin.0 (05/20/2024) Assessment & Plan Warfarin Plan As of 05/21/2024 Full warfarin instructions: 05/21: 5 mg; Otherwise 2.5 mg every Mon, Wed, Fri; 5 mg all other days Next INR check: 05/27/2024 Repeat PT/INR in 1 week(s) Weekly dose: not changed Additional Dosing Information: Description Home Dietary Service Aide to contact patient with dose instructions as noted. Liliana Green RPh 05/21/2024, 12:52 PM * Kavita Carlton CPhT - 05/21/2024 12:26 PM EDT Patient Phone Numbers Called patient and spoke to son Arya. He reported INR result of 2.0 taken on 05/20/2024 Thank you, Kavita Carlton CPhT Mental Health Program Director II Centralized Clinical Pharmacy Services ([facility]) 05/21/2024,12:26 PM documented in this encounter Plan of Treatment Upcoming Encounters Date Type Department Care Team (Late st Contact Info) Description 05/28/2024 6:30 AM EDT Anticoagulation Centralized Clinical Pharmacy Services, Luna Sears [address] [place] [address] [place] [address] [facility], [address] [place] [address] 07/01/2024 4:00 PM EDT [facility] [address] [place] [address] Nette Dior, [place] [address] [place] [address] 08/02/2024 2:30 PM EST Nurse Only Ancillary [address] [place] [address] [place], Nurse [address] [place] [address] 08/18/2024 2:30 PM EST Cardiac Studies Cardiac Studies, Health system [address] [place] [address] 08/27/2024 1:20 PM EST Office Visit Family Medicine [address] [place] [phone] [place] [address] 09/07/2024 2:00 PM EST Office Visit Cardiology, Health system [address] [place] [address] Kym Brady PA-C [address] [place] [address] 09/07/2024 3:00 PM EST Office Visit Cardiology [address] [place] [address] Ulices Phillips PAHusseinC [address] [place] [address] 09/15/2024 1:00 PM EST Imaging Radiology, [address] [place] [address] 03/02/2025 2:20 PM EDT Office Visit [address] [phone] Edith Osuna MD [address] [place] [address] [place] [address] Health Maintenance Due Date Last Done Comments Diabetic Foot Exam 05/31/2023 05/31/2022, 07/31/2021 CKD PHOS USE SMARTSET 44676 10/04/2023 10/04/2022, 1 09/30/2020 CKD HGB USE SMARTSET [id number] 02/06/202402/05, 02/05/2023, 10/04/2022, Additional history exists *BISPHONATE [...] 22 Depression Monitoring 07/30/2024 07/30/2023 Albumin/Creatinine Ratio 08/29/202408/29/2 023, 05/31/2022, 08/28/2021, Additional history exists Diabetic Eye Exam 01/06/2025 01/07/2024, , 12/06/2022, Additional history exists O2 ASSESSMENT COMPLETED IN PAST YEAR FOR COPD 05/18/2025 05/18/2024 DTap/Tdap Vaccines (2 - Td or Tdap) 11/24/2031 11/23/2021 (Not indicated) Zoster Vaccines Discontinued 03/20/2021 Pneumococcal Vaccine: 65+ Years Completed 07/31/2021, 02/15/2021 COVID-19 Vaccine Discontinued 08/14/2021, 01/20/2021 VITAMIN D LEVEL ONCE IN A LIFETIME-USE SMARTSET# [id number] Completed 02/05/2023 Alpha-1 Antitrypsin Discontinued HPV (Gardasil) [...] Date/Time Associated Diagnosis Comments OUTSIDE LAB-PT/INR Routine 05/20/2024 documented in this encounter Results * OUTSIDE LAB-PT/INR (05/20/2024) INR-OUTSIDE LAB 2.0 05/20/2024 History Per Patient LABORATORY documented in this encounter Visit Diagnoses Diagnosis H/O mitral valve replacement with mechanical valve- Primary Heart valve replaced by other means Paroxysmal atrial fibrillation (HCC) Atrial fibrillation documented in this encounter Care Teams Bumboater Relationship Specialty Start Date End Date Edith Osuna MD [address] [place] [address] [place] [address] PCP - General Family Medicine 02/15/21 documented as of this encounter
--- OUTSIDE RECORDS SUMMARY | 2024-05-22 23:46 | External Medical Summary | Summary of Care ---
Author Name Unknown Organization [facility] Address [address] [place] [address] Phone [phone] Care Team Providers Care Wedding Florist Name Role Phone Edith Osuna MD Primary Care Prov ider Reason for Visit * Reason Comments Medication Refill Encounter Details Date Type Department Care Team (Late st Contact Info) Description 05/15/2024 Refill Pharmacy, [address] [place] [address] Edith Osuna MD [address] [place] [address] [place] [address] Allergies Active Allergy Reactions Criticality Noted Date Comments Abhinav Inhibitors Cough 12/25/2021 Aspirin 02/15/2021 "delgado" her stomach, had a GI bleed in the past Codeine 11/22/2020 Morphine 11/22/2020 Oxycodone 11/22/2020 Nausea, vomiting, chest pain Semaglutide(0.25 Or 0.5mg-Dos) Diarrhea 10/04/2022 Severe documented as of this encounter (statuses as of 05/17/2024) Medications Medication Sig Dispensed Refills Start Date End Date Status Ferrous Sulfate 325 (65 Fe) MG Oral Tablet (Feosol)Indications :anemia Take 1 Tablet by mouth daily with breakfast. 30 Tab 11/22/2020 Active Multivitamin Adult Oral TabletIndications:s upplementation Take by mouth 1 Tablet daily . 30 Tab 11/22/2020 Active Saline Nasal [place] 0.65 % Nasal SolutionIndications :for nasal dryness or congestion Administer 2 Sprays into each nostril in the morning and 2 Sprays at noon and 2 Sprays in the evening and 2 Sprays before bedtime. for nasal dryness or congestion. 60 mL 11/22/2020 Active [place] 3 1200 MG Oral CapsuleIndications: heart health [...] (Aldactone)Indicati ons:Chronic diastolic CHF (congestive heart failure) ([facility]) TAKE ONE TABLET BY MOUTH EVERY MORNING, AND ONE TABLET BEFORE BEDTIME 180 Tablet 1 12/25/2023 12/25/19 25 Active Metoprolol Succinate ER 50 MG Oral Tablet Extended Release 24 Hour (toPROL XL) TAKE ONE TABLET BY MOUTH EVERY DAY 90 Tablet 3 01/08/2024 01/08/20 25 Active Trelegy Ellipta 100-62.5-25 MCG/ACT Aerosol Powder Breath Activated (Fluticasone-Umecli dinium-Vilanterol)I ndications:COPD, group B, by GOLD 2017 classification ([facility]) INHALE ONE PUFF BY MOUTH EVERY MORNING 180 Each 2 01/16/2024 01/16/20 25 Active Furosemide 40 MG Oral Tablet (Lasix)Indications: Chronic diastolic CHF (congestive heart failure) [facility] [...] :Moderate episode of recurrent major depressive disorder ([facility]) TAKE ONE CAPSULE BY MOUTH EVERY DAY 90 Capsule 3 03/17/2024 03/17/20 25 Active traZODone HCl 50 MG Oral Tablet (Desyrel) TAKE ONE TABLET BY MOUTH EVERY DAY AT BEDTIME 90 Tablet 2 05/12/2024 05/12/20 25 Active NovoLOG FlexPen 100 UNIT/ML Subcutaneous Solution Pen-injector (insulin aspart) Inject 10 Units under the skin daily before breakfast AND 10 Units daily before dinner. 15 mL 2 05/17/2024 Active NovoLOG FlexPen 100 UNIT/ML Subcutaneous Solution Pen-injector (insulin aspart) Inject 10 Units under the skin daily before breakfast AND 10 Units daily before dinner. 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 11/22/2020 Last [...] as of this encounter (statuses as of 05/17/2024) Resolved Problems Problem Noted Date Diagnosed Date Resolved Date COPD, severity to be determined 08/19/2022 09/18/2023 Overview: Per COPD GOLD Classification Last Assessment & Plan: "RED FLAG" COPD symptoms: Cough ("I get a different kind of cough than what I' have every day") Wheezing ("You can hear the whistling across the room") Medication Regimen All Classes - COLE Class D - Inhaled Snnlfanequtjwg-OYCQ-VWNW Combination Inhaler (Trellegy) Remote Patient Monitoring Vendor: [...] as of this encounter (statuses as of 05/17/2024) Immunizations Name Administration Dates Next Due COVID-19, [...] encounter Miscellaneous Notes * Telephone Encounter - Conor Molina [facility] - 05/17/2024 10:51 AM EDT Signed Prescriptions: Disp Refills NovoLOG FlexPen 100 UNIT/ML Subcutaneous S*15 mL 2 Sig: Inject 10 Units under the skin daily before breakfast AND 10 Units daily before dinner. Authorizing Provider: EDITH OSUNA Ordering User: CONOR MOLINA * Telephone Encounter - Kathie Peters [facility] - 05/17/2024 8:45 AM EDT Pending Prescriptions: Disp Refills NovoLOG FlexPen 100 UNIT/ML Subcutaneous S*15 mL 3 Sig: Inject 10 Units under the skin daily before breakfast AND 10 Units daily before dinner. documented in this encounter Plan of Treatment Upcoming Encounters Date Type Department Care Team (Late st Contact Info) Description 05/18/2024 2:30 PM EDT [facility], [facility] [address] [place] [address] Nette Dior, [place] [address] [place] [address] 05/19/2024 11:10 AM EDT Office Visit Family Medicine [address] [place] [phone] Linda Martin [address] [place] [address] 05/20/2024 10:00 AM EDT Office Visit Cardiology [address] [place] [address] Kym Brady PA-C [address] [place] [address] 08/02/2024 2:30 PM EST Nurse Only Ancillary [address] [place] [address] [place], Nurse [address] [place] [address] 08/18/2024 2:30 PM EST Cardiac Studies Cardiac Studies, [facility] [address] [place] [address] 08/27/2024 1:20 PM EST Office Visit Family Medicine [address] [place] [phone] Marnie Reyes [address] [place] [address] 09/07/2024 3:00 PM EST Office Visit Cardiology [address] [place] [address] Ulices Phillips PA-C [address] [place] [address] 09/15/2024 1:00 PM EST Imaging Radiology, [address] [place] [address] 03/02/2025 2:20 PM EDT Office Visit [address] [place] [phone] Edith Osuna MD [address] [place] [address] [place] [address] Health Maintenance Due Date Last Done Comments Diabetic Foot Exam 05/31/2023 05/31/2022, 07/31/2021 CKD PHOS USE SMARTSET 95323 10/04/2023 10/04/2022, 1 09/30/2020 CKD HGB USE SMARTSET 42350 02/06/202402/05, 02/05/2023, 10/04/2022, Additional history exists *BISPHONATE [...] IN PAST YEAR FOR COPD 02/24/2025 02/25/2024 DTap/Tdap Vaccines (2 - Td or Tdap) 11/24/2031 11/23/2021 (Not indicated) Zoster Vaccines Discontinued 03/20/2021 Pneumococcal Vaccine: 65+ Years Completed 07/31/2021, 02/15/2021 COVID-19 Vaccine Discontinued 08/14/2021, 01/20/2021 VITAMIN D LEVEL ONCE IN A LIFETIME-USE SMARTSET# [id number] Completed 02/05/2023 Alpha-1 Antitrypsin Discontinued HPV (Gardasil) [...] filedocumented as of this encounter Care Teams Wedding Florist Relationship Specialty Start Date End Date Edith Osuna MD [address] [place] [address] [place] [address] PCP - General Family Medicine 02/15/21 documented as of this encounter
--- OUTSIDE RECORDS SUMMARY | 2024-05-22 23:46 | External Medical Summary | Summary of Care ---
Author Name Unknown Organization [facility] [address] [facility] [address] Phone [phone] Care Team Providers Care File Drawer Finisher Name Role Phone Edith Osuna MD Primary Care Prov ider Encounter Details Date Type Department Care Team (Late st Contact Info) Description 05/18/2024 4:00 PM EDT [facility] [place] [address] Nette Dior, RN 132 [facility] [place] [address] Allergies Active Allergy Reactions Criticality Noted Date Comments Abhinav Inhibitors Cough 12/25/2021 Aspirin 02/15/2021 "delgado" her stomach, had a GI bleed in the past Codeine 11/22/2020 Morphine 11/22/2020 Oxycodone 11/22/2020 Nausea, vomiting, chest pain Semaglutide(0.25 Or 0.5mg-Dos) Diarrhea 10/04/2022 Severe documented as of this encounter (statuses as of 05/19/2024) Medications Medication Sig Dispensed Refills Start Date End Date Status Ferrous Sulfate 325 (65 Fe) MG Oral Tablet (Feosol)Indications: anemia Take 1 Tablet by mouth daily with breakfast. 30 Tab 11/22/2020 Active Multivitamin Adult Oral TabletIndications:venegsa pplementation Take by mouth 1 Tablet daily . 30 Tab 11/22/2020 Active Saline Nasal [place] 0.65 % Nasal SolutionIndications: for nasal dryness or congestion Administer 2 Sprays into each nostril in the morning and 2 Sprays at noon and 2 Sprays in the evening and 2 Sprays before bedtime. for nasal dryness or congestion. 60 mL 11/22/2020 Active [place] 3 1200 MG Oral CapsuleIndications:h eart health [...] than 8.0% ([facility]) inject under the skin 42 units before bedtime 45 mL 1 11/26/2023 Active Additional Information Patient taking differently: inject under the skin 40 units before bedtime, Reported on 05/18/2024 Atorvastatin Calcium 40 MG Oral Tablet (Lipitor) Take 1 Tablet by mouth in the morning. 90 Tablet 1 12/11/2023 Active Spironolactone 25 MG Oral Tablet (Aldactone)Indicatio ns:Chronic diastolic CHF (congestive heart failure) (HCC) TAKE [...] of recurrent major depressive disorder ([facility]) TAKE ONE CAPSULE BY MOUTH [...] GOLD 2017 classification ([facility]),Chronic respiratory failure with hypoxia, on home oxygen therapy ([facility]) 2.5 mg NEBULIZER PRN 11/26/2023 11/25/2024 Acti ve Albuterol Sulfate (Proventil) (2.5 MG/3ML) 0.083% inhalation solution 2.5 mgIndications:COPD, group B, by GOLD 2017 classification ([facility]),Chronic respiratory failure with hypoxia, on home oxygen therapy ([facility]) 2.5 mg NEBULIZER PRN 11/26/2023 11/25/2024 Acti ve documented as of this encounter (statuses as of 05/19/2024) Active Problems Problem Noted Date Diagnosed Date [...] 70 11/22/2020 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 11/22/2020 Last [...] as of this encounter (statuses as of 05/19/2024) Resolved Problems Problem Noted Date Diagnosed Date Resolved Date COPD, severity to be determined 08/19/2022 09/18/2023 Overview: Per COPD GOLD Classification Last Assessment & Plan: "RED FLAG" COPD symptoms: Cough ("I get a different kind of cough than what I' have every day") Wheezing ("You can hear the whistling across the room") Medication Regimen All Classes - COLE Class D - Inhaled Xzouomlpejcnwt-IHSE-TIMX Combination Inhaler (Trellegy) Remote Patient Monitoring Vendor: [...] as of this encounter (statuses as of 05/19/2024) Immunizations Name Administration Dates Next Due COVID-19, [...] 18 years and over) Not on file 3 Are you (or your family) joanna eless [...] Sign Reading Time Taken Comments Blood Pressure 102/60 05/18/2024 3:27 PM EDT Pulse 68 05/18/2024 3:27 PM EDT Temperature 37.3 C (99.1 F) 05/18/2024 3:27 PM ED T Respiratory Rate 18 05/18/2024 3:27 PM EDT Oxygen Saturation 96% 05/18/2024 3:27 PM EDT Inhaled Oxygen Concentration - - Weight - - Height - - Body Mass Index - - documented in this encounter Progress Notes * Nette Dior RN - 05/18/2024 3:08 PM EDT Current Concerns: Patient seen for SONJA#1- s/p [facility] stay related to chest pain/ UTI- JORGE with CKD III. Discharged withCefdinir and Probiotic. ABT completed. Will start Lasix 40mg tomorrow- was held d/t ABT. Medical history- UTI, Afib, CHF, CKD, COPD, Respiratory failure, DM2 Reports feeling better. VS wnl Lungs clear but diminished Sob with exertion Blood sugars managed by MTM. Oxygen at 3L via n/c continuous Nonpitting edema BLE Voiding without difficulty Bowels wnl- per report Appetite good Taking fluids well Physical Exam: Physical Exam Constitutional: Appearance: Normal appearance. Cardiovascular: Rate and Rhythm: Normal rate and regular rhythm. Pulses: Normal pulses. Pulmonary: Effort: Pulmonary effort is normal. Breath sounds: Normal breath sounds. Abdominal: General: Bowel sounds are normal. Palpations: Abdomen is soft. Musculoskeletal: General: Normal range of motion. Right lower leg: Edema present. Left lower leg: Edema present. Skin: General: Skin is warm and dry. Capillary Refill: Capillary refill takes 2 to 3 seconds. Neurological: General: No focal deficit present. Mental Status: She is alert and oriented to person, place, and time. Psychiatric: Mood and Affect: Mood normal. Behavior: Behavior normal. Review of Systems: Review of Systems Constitutional: Negative. HENT: Negative. Respiratory: Positive for shortness of breath. Cardiovascular: Positive for leg swelling. Gastrointestinal: Negative. Genitourinary: Negative. Musculoskeletal: Positive for arthralgias and gait problem. Skin: Negative. Hematological: Bruises/bleeds easily. Psychiatric/Behavioral: Negative. Reviewed s/s and prevention of UTI: Symptoms: -burning with urination -increased urination -cloudy urine -dark urine -foul smelling urine -fever -weakness/change in mental status Prevention: -drink plenty of fluids -wear cotton panties -wipe from front to back -avoid delayed bladder emptying DIABETES: -Blood sugar testing schedule: Twice a day, once in the morning and again 2 hours after a meal. -Blood sugar goals: Less than 120, fasting and less than 180, 2 hours after a meal -Record and take to PCP appointments -Notify your doctor if your blood sugar is consistently above goal -Hypoglycemia (low blood sugar) action plan: If blood sugar is less than 70 or having symptoms of low blood sugar eat or drink a snack of 15gm of carbohydrate (2-3 glucose tablets, glass juice, 1Cnon-fat milk, etc) wait 15 min if blood sugar still low repeat snack, wait 15 minutes if still low call health care provider. Ask provider if a medication adjustment is needed if experiencing low blood sugars frequently, twice a week or more. -Hyperglycemia (high blood sugar) action Plan: Take medications as directed, test blood sugars frequently, if above goal, contact your health care provider. Ask for changes to medication if blood sugars continue to run above goal. -Eat three well balanced meals a day 5 servings fruit/vegetable per day Orders Placed: No orders of the defined types were placed in this encounter. Treatment Plan: Fluids encouraged Monitor for s/sx's of UTI Continue medications as prescribed Keep all upcoming MD appointments- PCP appointment tomorrow MTM for diabetes management Elevate ble- edema Low na diet OCTAVIO CM follow up in 6 weeks Care Gaps: documented in this encounter Plan of Treatment Upcoming Encounters Date Type Department Care Team (Late st Contact Info) Description 05/19/2024 11:10 AM EDT Office Visit Family Medicine [address] [place] [phone] [place] [address] 05/20/2024 10:00 AM EDT Office Visit Cardiology [address] [place] [address] Kym Brady PA-C [address] [place] [address] 05/20/2024 6:15 PM EDT Anticoagulation Centralized Clinical Pharmacy Services, Luna Sears [address] [place] [address] [place] [address] [facility], [address] [place] [address] 07/01/2024 4:00 PM EDT [facility] Visit [facility], [facility] 132 [place] [address] Nette Dior, OCTAVIO 132 [place] [address] 08/02/2024 2:30 PM EST Nurse Only Ancillary [address] [place] [address] [place], Nurse [address] [place] [address] 08/18/2024 2:30 PM EST Cardiac Studies Cardiac Studies, [facility] 132 [place] [address] 08/27/2024 1:20 PM EST Office Visit Family Medicine [address] [place] [phone] Marnie Reyes CRNP [address] [place] [address] [place] [address] 09/07/2024 3:00 PM EST Office Visit Cardiology [address] [place] [address] Ulices Phillips PA-C [address] [place] [address] 09/15/2024 1:00 PM EST Imaging Radiology, [address] [place] [address] 03/02/2025 2:20 PM EDT Office Visit Family Medicine [address] [place] [phone] Edith Osuna MD [address] [place] [address] [place] [address] Health Maintenance Due Date Last Done Comments Diabetic Foot Exam 05/31/2023 05/31/2022, 07/31/2021 CKD PHOS USE SMARTSET 62276 10/04/2023 10/04/2022, 1 09/30/2020 CKD HGB USE SMARTSET 98374 02/06/202402/05, 02/05/2023, 10/04/2022, Additional history exists *BISPHONATE [...] D LEVEL ONCE IN A LIFETIME-USE SMARTSET# [id number] Completed 02/05/2023 Alpha-1 Antitrypsin Discontinued HPV (Gardasil) [...] filedocumented as of this encounter Care Teams File Drawer Finisher Relationship Specialty Start Date End Date Edith Osuna MD [address] [place] [address] [place] [phone] PCP - General Family Medicine 02/15/21 documented as of this encounter
--- OUTSIDE RECORDS SUMMARY | 2024-05-22 23:46 | External Medical Summary | Summary of Care ---
Author Name Unknown Organization [facility] Address [address] [facility] [place] [address] Phone [phone] Care Team Providers Care R D Internship Name Role Phone Edith Osuna MD Primary Care Prov ider Reason for Visit * Reason Comments Dosage Adjustment Via Phone (anticoag Cl inic) Encounter Details Date Type Department Care Team (Late st Contact Info) Description 05/17/2024 6:45 AM EDT Anticoagulation Central[facility] Clinical [facility] Services, Luna Sears [address] [place] [address] [place] [address] [place] [address] H/O mitral valve replacement with mechanical valve*; [...] . 30 Tab 11/22/2020 Active Saline Nasal [place] 0.65 % Nasal SolutionIndications: for nasal dryness or congestion Administer 2 Sprays into each nostril in the morning and 2 Sprays at noon and 2 Sprays in the evening and 2 Sprays before bedtime. for nasal dryness or congestion. 60 mL 11/22/2020 Active [place] 3 1200 MG Oral CapsuleIndications: eart health [...] 3L continuously Subclinical hypothyroidism 10/04/2022 History of ME (myocardial infarction) 05/31/2022 Type 2 diabetes mellitus [...] Classes - COLE Class D - Inhaled Dkcbmkodnwlygb-ZPYS-AZWM Combination Inhaler (Trellegy) Remote Patient Monitoring Vendor: [...] of this encounter Progress Notes * Liliana Green RPh - 05/17/2024 2:56 PM EDT Medication Therapy Disease Management - Anticoagulation Patient: Fani Merritt | : 1945 Subjective Contacts Contact Date/Time Type Contact Phone/Fax 05/17/2024 03:02 PM EDT Phone (Outgoing) Fani Merritt "Matt" (Self) [phone] (M) Spoke to Patient Patient-Reported Symptoms: Patient Findings Positives: Hospital admission Comments: Pt was discharged from [facility] to home. Pt was admitted for chest pain/UTI. Pertinent medications changes Cefdinir, not a significant interaction. Advised to call if NVD .24 hours INR at discharge was 1.7. Pt was provided the following directions at discharge: 5mg MWF; 10mg all other days-- 100% increase over what [facility] had pt on previously. Confirmed pt has green 2.5mg tablets and weekly regimen matches what we have. Objective Current Warfarin Dose As of 05/17/2024 Warfarin maintenance plan: 2.5 mg (2.5 mg x 1) every Mon, Wed, Fri; 5 mg (2.5 mg x 2) all other days INR Result As of 05/17/2024 INR goal: 2.5-3.5 INR used for dosing: No new INR was available at the time of this encounter. Assessment & Plan Warfarin Plan As of 05/17/2024 Full warfarin instructions: 2.5 mg every Mon, Wed, Fri; 5 mg all other days Next INR check: 05/20/2024 Repeat PT/INR in 3 day(s) Weekly dose: not changed Additional Dosing Information: Description Home Machine Liliana Green RPh Clinical Pharmacist 05/17/2024, 2:58 PM documented in this encounter Plan of Treatment Upcoming Encounters Date Type Department Care Team (Late st Contact Info) Description 05/18/2024 2:30 PM EDT [facility] 132 [place] [address] Nette Dior, OCTAVIO [address] [place] [address] 05/19/2024 11:10 AM EDT Office Visit Family Medicine [address] [place] [phone] Linda Martin [address] [place] [address] 05/20/2024 10:00 AM EDT Office Visit Cardiology [address] [place] [address] Kym Brady, MALINDA 132 [place] [address] 08/02/2024 2:30 PM EST Nurse Only Ancillary [address] [place] [address] [place], Nurse [address] [place] [address] 08/18/2024 2:30 PM EST Cardiac Studies Cardiac Studies, [facility] [address] [place] [address] 08/27/2024 1:20 PM EST Office Visit Family Medicine [address] [place] [phone] Marnie Reyes [address] [place] [address] 09/07/2024 3:00 PM EST Office Visit Cardiology [address] [place] [address] Ulices Phillips PA-Raymon [address] [place] [address] 09/15/2024 1:00 PM EST Imaging Radiology, [address] [place] [address] 03/02/2025 2:20 PM EDT Office Visit Family Medicine [address] [place] [phone] Edith Osuna MD [address] [place] [address] [place] [address] Health Maintenance Due Date Last Done Comments Diabetic Foot Exam 05/31/2023 05/31/2022, 07/31/2021 CKD PHOS USE SMARTSET 87952 10/04/2023 10/04/2022, 1 09/30/2020 CKD HGB USE SMARTSET 81837 02/06/202402/05, 02/05/2023, 10/04/2022, Additional history exists *BISPHONATE [...] D LEVEL ONCE IN A LIFETIME-USE SMARTSET# [id number] Completed 02/05/2023 Alpha-1 Antitrypsin Discontinued HPV (Gardasil) [...] as of this encounter Visit Diagnoses Diagnosis H/O mitral valve replacement with mechanical valve- Primary Heart valve replaced by other means Paroxysmal atrial fibrillation (HCC) Atrial fibrillation documented in this encounter Care Teams R D Internship Relationship Specialty Start Date End Date Edith Osuna MD [address] [place] [address] [place] [address] PCP - General Family Medicine 02/15/21 documented as of this encounter
--- OUTSIDE RECORDS SUMMARY | 2024-05-22 23:46 | External Medical Summary | Summary of Care ---
Author Name Unknown Organization [facility] Address [address] [place] [address] Phone [phone] Care Team Providers Care Strip Polisher Name Role Phone Edith Osuna MD Primary Care Prov ider Encounter Details Date Type Department Care Team (Late st Contact Info) Description 05/17/2024 Population Health External Data Unspecified Department Allergies [...] . 30 Tab 11/22/2020 Active Saline Nasal [place] 0.65 % Nasal SolutionIndications: for nasal dryness or congestion Administer 2 Sprays into each nostril in the morning and 2 Sprays at noon and 2 Sprays in the evening and 2 Sprays before bedtime. for nasal dryness or congestion. 60 mL 11/22/2020 Active [place] 3 1200 MG Oral CapsuleIndications:h eart health [...] than 8.0% ([facility]) Use to test blood sugar 3-4 times a day dx E11.9 400 Each 3 03/13/2021 Active OneTouch Verio In Vitro Strip (Glucose Blood)Indications:Ty pe 2 diabetes mellitus with hemoglobin A1c goal of less than 8.0% ([facility]) Use to test blood sugar 3-4 times a day dx e11.9 400 Strip 3 03/13/2021 Active FreeStyle [place] 2 Sensor Use as directed. Active Magnesium Oxide 400 (240 Mg) MG Oral TabletIndications:Ch ronic diastolic CHF (congestive heart failure) ([facility]) Take 1 Tab by mouth daily. 28 Tab 5 04/19/2021 Active oxygen IN GAS Use 2 L/min(Oxygen) as directed continuous. Active Insulin Syringes (Disposable) U-100 1 MLIndications:Type 2 diabetes mellitus with hemoglobin A1c goal of less than 8.0% ([facility]) Twice a day 200 Each 1 11/23/2021 [...] all other days or as directed by [facility] 135 Tablet 3 09/24/2023 Active BD [...] than 8.0% ([facility]) inject under the skin 42 units before bedtime 45 mL 1 11/26/2023 Active Atorvastatin Calcium 40 MG Oral Tablet (Lipitor) Take 1 Tablet by mouth in the morning. 90 Tablet 1 12/11/2023 Active Spironolactone 25 MG Oral Tablet (Aldactone)Indicatio ns:Chronic diastolic CHF (congestive heart failure) ([facility]) TAKE ONE TABLET BY MOUTH EVERY MORNING, [...] 2017 classification ([facility]) INHALE ONE PUFF BY MOUTH EVERY MORNING 180 Each 2 01/16/2024 5 Active Furosemide 40 MG Oral Tablet (Lasix)Indications:C hronic diastolic CHF (congestive heart failure) ([facility]) TAKE TWO TABLETS BY MOUTH EVERY MORNING [...] depressive disorder ([facility]) TAKE ONE CAPSULE BY MOUTH EVERY DAY 90 Capsule 3 03/17/2024 5 Active traZODone HCl 50 MG Oral Tablet (Desyrel) TAKE ONE TABLET BY MOUTH EVERY DAY AT BEDTIME 90 Tablet 2 05/12/2024 5 Active Hospital, Clinic, or Other Facility Administered Medication Ordered Dose Route Frequency Start Date End Date Status Albuterol Sulfate (Proventil) (5 MG/ML) 0.5% *conc* inhalation solution 2.5 mgIndications:COPD, group B, by GOLD 2017 classification ([facility]),Chronic respiratory failure with hypoxia, on home oxygen therapy ([facility]) 2.5 mg NEBULIZER PRN 11/26/2023 11/25/2024 Acti ve Albuterol Sulfate (Proventil) (2.5 MG/3ML) 0.083% inhalation solution 2.5 mgIndications:COPD, group B, by GOLD 2017 classification ([facility]),Chronic respiratory failure with hypoxia, on home oxygen therapy ([facility]) 2.5 mg NEBULIZER PRN 11/26/2023 11/25/2024 Acti [...] 3L continuously Subclinical hypothyroidism 10/04/2022 History of [place] (myocardial infarction) 05/31/2022 Type 2 diabetes mellitus [...] 70 11/22/2020 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 11/22/2020 Last [...] Classes - COLE Class D - Inhaled Csqoimnxynwryr-ZLMZ-CRXL Combination Inhaler (Trellegy) Remote Patient Monitoring Vendor: No Connected RPM Device(s): No current devices Self-Management plan Other/Additional Comments: rescue inhaler, contact [facility] Exacerbation plan Chest Xray Additional [...] Description 05/18/2024 2:30 PM EDT [facility] [address] [place] [address] Nette Dior, RN 132 [place] [address] 05/19/2024 11:10 AM EDT Office Visit Family Medicine [address] [place] [phone] Linda Martin [address] [place] [address] 05/20/2024 10:00 AM EDT Office Visit Cardiology [address] [place] [address] Kym Brady PA-C 132 [place] [address] 08/02/2024 2:30 PM EST Nurse Only Ancillary [address] [place] [address] [place], Nurse [address] [place] [address] 08/18/2024 2:30 PM EST Cardiac Studies Cardiac Studies, [facility] 132 [place] [address] 08/27/2024 1:20 PM EST Office Visit Family Medicine [address] [place] [phone] Marnie Reyes [address] [place] [address] 09/07/2024 3:00 PM EST Office Visit Cardiology [address] [place] [address] Ulices Phillips PA-C [address] [place] [address] 09/15/2024 1:00 PM EST Imaging Radiology, [address] [place] [address] 03/02/2025 2:20 PM EDT Office Visit [address] [place] [phone] Edith Osuna MD [address] [place] [address] [place] [address] Health Maintenance Due Date Last Done Comments Diabetic Foot Exam 05/31/2023 05/31/2022, 07/31/2021 CKD PHOS USE SMARTSET 15448 10/04/2023 10/04/2022, 1 09/30/2020 CKD HGB USE SMARTSET 43769 02/06/202402/05, 02/05/2023, 10/04/2022, Additional history exists *BISPHONATE [...] 22 Depression Monitoring 07/30/2024 07/30/2023 Albumin/Creatinine Ratio 08/29/202408/29/ [...] D LEVEL ONCE IN A LIFETIME-USE SMARTSET# 15080 Completed 02/05/2023 Alpha-1 Antitrypsin Discontinued HPV (Gardasil) [...] filedocumented as of this encounter Care Teams Strip Polisher Relationship Specialty Start Date End Date Edith Osuna MD [address] [place] [address] [place] [phone] PCP - General Family Medicine 02/15/21 documented as of this encounter
--- OUTSIDE RECORDS SUMMARY | 2024-05-22 23:46 | External Medical Summary | Summary of Care ---
Author Name Unknown Organization [facility] Address [address] [facility] [place] [address] Phone [phone] Care Team Providers Care Sagger Soak Name Role Phone Edith Osuna MD Primary Care Prov ider Reason for Visit * Reason Comments Dosage Adjustment Via Phone (anticoag Cl inic) Encounter Details Date Type Department Care Team (Late st Contact Info) Description 05/20/2024 6:15 PM EDT Anticoagulation [facility], Luna Sears [address] [place] [address] [place] [address] [place] [address] H/O mitral valve replacement with mechanical valve*; Paroxysmal atrial fibrillation (HCC) Allergies Active Allergy Reactions Criticality Noted Date Comments Abhinav Inhibitors Cough 12/25/2021 Aspirin 02/15/2021 "delgado" her stomach, had a GI bleed in the past Codeine 11/22/2020 Morphine 11/22/2020 Oxycodone 11/22/2020 Nausea, vomiting, chest pain Semaglutide(0.25 Or 0.5mg-Dos) Diarrhea 10/04/2022 Severe documented as of this encounter (statuses as of 05/20/2024) Medications Medication Sig Dispensed Refills Start Date End Date Status Ferrous Sulfate 325 (65 Fe) MG Oral Tablet (Feosol)Indications: anemia Take 1 Tablet by mouth daily with breakfast. 30 Tab 11/22/2020 Active Multivitamin Adult Oral TabletIndications:venegas pplementation Take by mouth 1 Tablet daily . 30 Tab 11/22/2020 Active Saline Nasal [place] 0.65 % Nasal SolutionIndications: for nasal dryness or congestion Administer 2 Sprays into each nostril in the morning and 2 Sprays at noon and 2 Sprays in the evening and 2 Sprays before bedtime. for nasal dryness or congestion. 60 mL 11/22/2020 Active [place] 3 1200 MG Oral CapsuleIndications: [facility] [...] as of this encounter (statuses as of 05/20/2024) Active Problems Problem Noted Date Diagnosed Date COPD, group B, by GOLD 2017 classification 09/15 Overview: Per COPD GOLD Classification Age-related osteoporosis wit [place] current pathological fracture 02/05/2023 Last Assessment & Plan: Currently on prolia injections Chronic respiratory failure with hypoxia, on home oxygen therapy 10/04/2022 Overview: Wearing 3L continuously Last Assessment & Plan: Wearing 3L continuously Subclinical hypothyroidism 10/04/2022 History of AL (myocardial infarction) 05/31/2022 Type 2 diabetes mellitus [...] 68 11/22/2020 Coronary artery disease invo lving [place] coronary artery without angina pectoris 11/22/2020 Last [...] as of this encounter (statuses as of 05/20/2024) Resolved Problems Problem Noted Date Diagnosed Date Resolved Date COPD, severity to be determined 08/19/2022 09/18/2023 Overview: Per COPD GOLD Classification Last Assessment & Plan: "RED FLAG" COPD symptoms: Cough ("I get a different kind of cough than what I' have every day") Wheezing ("You can hear the whistling across the room") Medication Regimen All Classes - COLE Class D - Inhaled Pydogkklojdhkd-AWLL-DIWN Combination Inhaler ([place]) Remote Patient Monitoring Vendor: No Connected RPM Device(s): No current devices Self-Management plan Other/Additional Comments: rescue inhaler, contact [facility] Exacerbation plan Chest Xray Additional [...] as of this encounter (statuses as of 05/20/2024) Immunizations Name Administration Dates Next Due COVID-19, [...] Progress Notes * Liliana Green RPh - 05/20/2024 3:26 PM EDT Noted, will follow up again tomorrow for result. Pt was short check due to recent hosp d/c Liliana Green Rph, Pharm.D. Clinical Pharmacist [facility] ([facility]) [phone] 05/20/2024,3:27 PM * Kavita Carlton CPhT - 05/20/2024 3:16 PM EDT Called patient at [phone] at 2pm and again at 2:54pm. I left voicemail both times reminding her to test for INR. I did check with milog website, no results have been posted. Patient is a 3 day check. Please advise. Thank you, Kavita Carlton CPhT Arm Rest Builder II [facility] ([facility]) 05/20/2024,3:17 PM documented in this encounter Plan of Treatment Upcoming Encounters Date Type Department Care Team (Late st Contact Info) Description 05/21/2024 6:00 PM EDT Anticoagulation Centralized Clinical Pharmacy Services, Luna Sears [address] [place] [address] [place] [address] [facility], [address] [place] [address] 07/01/2024 4:00 PM EDT [facility], [facility] [address] [place] [address] Nette Dior, RN [address] [place] [address] 08/02/2024 2:30 PM EST Nurse Only Ancillary [address] [place] [address] [place], Nurse Annual [address] [place] [address] 08/18/2024 2:30 PM EST Cardiac Studies Cardiac Studies, [place] [facility] [address] [place] [address] 08/27/2024 1:20 PM EST Office Visit Family Medicine [address] [place] [phone] Marnie Re[address] [place] [address] 09/07/2024 2:00 PM EST Office Visit Cardiology, [place] [facility] [address] [place] [address] Kym Brady PA-C [address] [place] [address] 09/07/2024 3:00 PM EST Office Visit Cardiology [address] [place] [address] Ulices Phillips PA-C [address] [place] [address] 09/15/2024 1:00 PM EST Imaging Radiology, [address] [place] [address] 03/02/2025 2:20 PM EDT Office Visit Family Medicine [address] [place] [phone] Edith Osuna MD [address] [place] [address] [place] [address] Health Maintenance Due Date Last Done Comments Diabetic Foot Exam 05/31/2023 05/31/2022, 07/31/2021 CKD PHOS USE SMARTSET 55446 10/04/2023 10/04/2022, 1 09/30/2020 CKD HGB USE SMARTSET 53703 02/06/202402/05, 02/05/2023, 10/04/2022, Additional history exists *BISPHONATE [...] D LEVEL ONCE IN A LIFETIME-USE SMARTSET# 22826 Completed 02/05/2023 Alpha-1 Antitrypsin Discontinued HPV (Gardasil) [...] fibrillation documented in this encounter Care Teams Sagger Soak Relationship Specialty Start Date End Date Edith Osuna MD [address] [place] [address] [place] [id number] PCP - General Family Medicine 02/15/21 documented as of this encounter
--- OUTSIDE RECORDS SUMMARY | 2024-05-22 23:47 | External Medical Summary | Summary of Care ---
Author Name Unknown Organization [facility] Address [address] [facility] [address] Phone [phone] Care Team Providers Care Manager Cardiology Name Role Phone Edith Osuna MD Primary Care Prov ider Encounter Details Date Type Department Care Team (Late st Contact Info) Description 05/13/2024 Telephone Cardiology, [facility] [address] [place] [address] Blessing Sheehan CRNP [address] [place] [address] Allergies Active Allergy Reactions Criticality Noted Date Comments Abhinav Inhibitors Cough 12/25/2021 Aspirin 02/15/2021 "delgado" her stomach, had a GI bleed in the past Codeine 11/22/2020 Morphine 11/22/2020 Oxycodone 11/22/2020 Nausea, vomiting, chest pain Semaglutide(0.25 Or 0.5mg-Dos) Diarrhea 10/04/2022 Severe documented as of this encounter (statuses as of 05/14/2024) Medications Medication Sig Dispensed Refills Start Date End Date Status Ferrous Sulfate 325 (65 Fe) MG Oral Tablet (Feosol)Indications: anemia Take 1 Tablet by mouth daily with breakfast. 30 Tab 11/22/2020 Active Multivitamin Adult Oral TabletIndications:venegas pplementation Take by mouth 1 Tablet daily . 30 Tab 11/22/2020 Active Saline Nasal [place] 0.65 % Nasal SolutionIndications: for nasal dryness or congestion Administer 2 Sprays into each nostril in the morning and 2 Sprays at noon and 2 Sprays in the evening and 2 Sprays before bedtime. for nasal dryness or congestion. 60 mL 11/22/2020 Active [place] 3 1200 MG Oral CapsuleIndications:[facility] [...] all other days or as directed by [facility] 135 Tablet 3 09/24/2023 Active BD [...] goal of less than 8.0% ([facility]) inject under the skin 42 units before bedtime 45 mL 1 11/26/2023 Active Atorvastatin Calcium 40 MG Oral Tablet (Lipitor) Take 1 Tablet by mouth in the morning. 90 Tablet 1 12/11/2023 Active Spironolactone 25 MG Oral Tablet (Aldactone)Indicatio ns:Chronic diastolic CHF (congestive heart failure) ([facility]) TAKE ONE TABLET BY MOUTH [...] B, by GOLD 2017 classification ([facility]) INHALE ONE PUFF BY MOUTH EVERY MORNING 180 Each 2 01/16/2024 5 Active Furosemide 40 MG Oral Tablet (Lasix)Indications:C hronic diastolic CHF (congestive heart failure) ([facility]) TAKE TWO TABLETS BY MOUTH [...] of recurrent major depressive disorder ([facility]) TAKE ONE CAPSULE BY MOUTH [...] B, by GOLD 2017 classification ([facility]),Chronic respiratory failure with hypoxia, on home oxygen therapy ([facility]) 2.5 mg NEBULIZER PRN 11/26/2023 11/25/2024 Acti ve Albuterol Sulfate (Proventil) (2.5 MG/3ML) 0.083% inhalation solution 2.5 mgIndications:COPD, group B, by GOLD 2017 classification ([facility]),Chronic respiratory failure with hypoxia, on home oxygen therapy ([facility]) 2.5 mg NEBULIZER PRN 11/26/2023 11/25/2024 Acti ve documented as of this encounter (statuses as of 05/14/2024) Active Problems Problem Noted Date Diagnosed Date COPD, group B, by GOLD 2017 classification 09/15 Overview: Per COPD GOLD Classification Age-related osteoporosis wit hout current pathological fracture 02/05/2023 Last Assessment & Plan: Currently on prolia injections Chronic respiratory failure with hypoxia, on home oxygen therapy 10/04/2022 Overview: Wearing 3L continuously Last Assessment & Plan: Wearing 3L continuously Subclinical hypothyroidism 10/04/2022 History of ID (myocardial infarction) 05/31/2022 Type 2 diabetes mellitus [...] 68 11/22/2020 Coronary artery disease invo lving [place] coronary artery without angina pectoris 11/22/2020 Last [...] as of this encounter (statuses as of 05/14/2024) Resolved Problems Problem Noted Date Diagnosed Date Resolved Date COPD, severity to be determined 08/19/2022 09/18/2023 Overview: Per COPD GOLD Classification Last Assessment & Plan: "RED FLAG" COPD symptoms: Cough ("I get a different kind of cough than what I' have every day") Wheezing ("You can hear the whistling across the room") Medication Regimen All Classes - COLE Class D - Inhaled Kvvivuugqapksb-XWFG-GHSN Combination Inhaler (Trellegy) Remote Patient Monitoring Vendor: No Connected RPM Device(s): No current devices Self-Management plan Other/Additional Comments: rescue inhaler, contact [facility] Exacerbation plan Chest Xray Additional Comments: [...] as of this encounter (statuses as of 05/14/2024) Immunizations Name Administration Dates Next Due COVID-19, [...] encounter Miscellaneous Notes * Telephone Encounter - Blessing Sheehan CRNP - 05/14/2024 12:28 PM EDT This is wonderful! Thank you * Telephone Encounter - Nelson Mae OSA - 05/14/2024 9:15 AM EDT Called patient spoke with son, he is aware of the date and time at [facility] on: RETURN CARDIOLOGY at 10:00 AM (30 min)Arrive by 9:45 AM May Appointment Provider:Kym Brady PA-C in CARDIOLOGY [facility] There must have been a cancellation, as of this morning, there was an opening with Kym on 05/20 at [facility]. Thank you. * Telephone Encounter - Jesenia Syed RN - 05/14/2024 8:25 AM EDT Opening available currently with Kym Brady PA-C at [facility] 05/22/24. * Telephone Encounter - Nelson Mae OSA - 05/13/2024 1:38 PM EDT Ulices, I have another request from Blessing for a sooner FU, possibly at [facility], Please advise, thank you. If not there, please let me know. Thank you. * Telephone Encounter - Blessing Sheehan CRNP - 05/13/2024 12:08 PM EDT Hospital discharge follow up needed. Admission date 05/11/24 Anticipated discharge date tomorrow 05/14/2024 Admission dx: Atypical chest pain and acute UTI Patient currently does not have a follow up with Ulices until August in [facility]. Can we see if we can get her a sooner appt with Ulices in [facility] in May or June. I know this will be hard! Thank you, Blessing documented in this encounter Plan of Treatment Upcoming Encounters Date Type Department Care Team (Late st Contact Info) Description 05/18/2024 2:30 PM EDT Home Visit [facility] [address] [address] Nette Dior RN [address] [place] [address] 05/19/2024 11:10 AM EDT Office Visit Family Medicine [address] [place] [phone] Linda Martin[address] [place] [address] 05/20/2024 10:00 AM EDT Office Visit Cardiology [address] [place] [address] Kym Brady PA-C [address] [place] [address] 08/02/2024 2:30 PM EST Nurse Only Ancillary [address] [place] [address] Vinicio, Nurse Annual [address] [place] [address] 08/18/2024 2:30 PM EST Cardiac Studies Cardiac Studies, [facility] [address] [place] [address] 08/27/2024 1:20 PM EST Office Visit Family Medicine [address] [place] [phone] Marnie Reyes CRNP [address] [place] [address] [place] [address] 09/07/2024 3:00 PM EST Office Visit Cardiology [address] [place] [address] Ulices Phillips PA-C [address] [place] [address] 09/15/2024 1:00 PM EST Imaging Radiology, [place] [address] [facility] [place] [address] 03/02/2025 2:20 PM EDT Office Visit [address] [phone] Edith Osuna MD [address] [place] [address] [place] [address] Health Maintenance Due Date Last Done Comments Diabetic Foot Exam 05/31/2023 05/31/2022, 07/31/2021 CKD PHOS USE SMARTSET 41134 10/04/2023 10/04/2022, 1 09/30/2020 CKD HGB USE SMARTSET 70686 02/06/202402/05, 02/05/2023, 10/04/2022, Additional history exists *BISPHONATE [...] D LEVEL ONCE IN A LIFETIME-USE SMARTSET# 40429 Completed 02/05/2023 Alpha-1 Antitrypsin Discontinued HPV (Gardasil) [...] filedocumented as of this encounter Care Teams Manager Cardiology Relationship Specialty Start Date End Date Edith Osuna MD [address] [place] [address] [place] [phone] PCP - General Family Medicine 02/15/21 documented as of this encounter
--- OUTSIDE RECORDS SUMMARY | 2024-05-22 23:47 | External Medical Summary | Summary of Care ---
Author Name Unknown Organization [facility] Address [address] [facility] [place] [address] Phone [phone] Care Team Providers Care Principal Associate Name Role Phone Edith Osuna MD Primary Care Prov ider Reason for Visit * Reason Comments Dosage Adjustment Via Phone (anticoag Cl inic) Encounter Details Date Type Department Care Team (Late st Contact Info) Description 05/14/2024 6:30 AM EDT Anticoagulation Centralized Clinical Pharmacy Services, Luna Sears [address] [place] [address] [place] [address] [place] [address] H/O mitral valve replacement with mechanical valve*; [...] . 30 Tab 11/22/2020 Active Saline Nasal [place] 0.65 % Nasal SolutionIndications: for nasal dryness or congestion Administer 2 Sprays into each nostril in the morning and 2 Sprays at noon and 2 Sprays in the evening and 2 Sprays before bedtime. for nasal dryness or congestion. 60 mL 11/22/2020 Active [place] 3 1200 MG Oral CapsuleIndications: [facility] [...] of less than 8.0% ([facility]) Use to test blood sugar 3-4 times a day dx E11.9 400 Each 3 03/13/2021 Active OneTouch Verio In Vitro Strip (Glucose Blood)Indications:Ty pe 2 diabetes mellitus with hemoglobin A1c goal of less than 8.0% ([facility]) Use to test blood sugar 3-4 times a day dx e11.9 400 Strip 3 03/13/2021 Active FreeStyle [place] 2 Sensor Use as directed. Active Magnesium Oxide 400 (240 Mg) MG Oral TabletIndications:Ch ronic diastolic CHF (congestive heart failure) ([facility]) Take 1 Tab by mouth daily. 28 Tab 5 04/19/2021 Active oxygen IN GAS Use 2 L/min(Oxygen) as directed continuous. Active Insulin Syringes (Disposable) U-100 1 MLIndications:Type 2 diabetes mellitus with hemoglobin A1c goal of less than 8.0% ([facility]) Twice a day 200 Each [...] TABLET BEFORE BEDTIME 180 Tablet 1 12/25/2023 04/18/202 5 Active Metoprolol Succinate ER 50 MG [...] (Lasix)Indications:C hronic diastolic CHF (congestive heart failure) ([facility]) TAKE TWO TABLETS BY MOUTH [...] Moderate episode of recurrent major depressive disorder ([facility]) TAKE ONE CAPSULE BY MOUTH [...] 3L continuously Subclinical hypothyroidism 10/04/2022 History of MA (myocardial infarction) 05/31/2022 Type 2 diabetes mellitus [...] 70 11/22/2020 Coronary artery disease invo lving [place] coronary artery without angina pectoris 11/22/2020 Last [...] Classes - COLE Class D - Inhaled Bqeknptzoewlss-ULGV-CCIB Combination Inhaler (Trellegy) Remote Patient Monitoring Vendor: [...] Progress Notes * Liliana Green RPh - 05/14/2024 10:02 AM EDT Noted, pt admitted to [facility]. [facility] will follow up for discharge plans. Liliana Green Rph, Pharm.D. Clinical Pharmacist [facility] ([facility]) [phone] 05/14/2024,10:02 AM * Celsa Reynolds PHARM Tech - 05/14/2024 8:09 AM EDT Called and spoke to patient's son, patient is currently admitted in the hospital in [facility] room 276. Thank you, Sonal Reynolds General Education Professor [facility] ([facility]) 05/14/2024, 8:09 AM documented in this encounter Plan of Treatment Upcoming Encounters Date Type Department Care Team (Late st Contact Info) Description 05/17/2024 6:45 AM EDT Anticoagulation Centralized Clinical Pharmacy Services, Luna Sears [address] [place] [address] [place] [address] [facility], [address] [place] [address] 05/18/2024 2:30 PM EDT [facility] [place] [address] Nette Dior, OCTAVIO [address] [place] [address] 05/19/2024 11:10 AM EDT Office Visit Family [address] [place] [phone] Linda Martin[address] [place] [address] 05/20/2024 10:00 AM EDT Office Visit Cardiology [address] [place] [address] Kym Brady PA-C [address] [place] [address] 08/02/2024 2:30 PM EST Nurse Only Ancillary [address] [place] [address] [place], Nurse [address] [place] [address] 08/18/2024 2:30 PM EST Cardiac Studies Cardiac Studies, [facility] [address] [place] [address] 08/27/2024 1:20 PM EST Office Visit Family [address] [place] [phone] Marnie Reyes [address] [place] [address] 09/07/2024 3:00 PM EST Office Visit Cardiology [address] [place] [address] Ulices Phillips PA-C [address] [place] [address] 09/15/2024 1:00 PM EST Imaging Radiology, [address] [place] [address] 03/02/2025 2:20 PM EDT Office Visit Family Medicine [address] [place] [phone] Edith Osuna MD [address] [place] [address] [place] [address] Health Maintenance Due Date Last Done Comments Diabetic Foot Exam 05/31/2023 05/31/2022, 07/31/2021 CKD PHOS USE SMARTSET 93133 10/04/2023 10/04/2022, 1 09/30/2020 CKD HGB USE SMARTSET 01945 02/06/202402/05, 02/05/2023, 10/04/2022, Additional history exists *BISPHONATE [...] D LEVEL ONCE IN A LIFETIME-USE SMARTSET# 38640 Completed 02/05/2023 Alpha-1 Antitrypsin Discontinued HPV (Gardasil) [...] fibrillation documented in this encounter Care Teams Principal Associate Relationship Specialty Start Date End Date Edith Osuna MD [address] [place] [address] [place] [address] PCP - General Family Medicine 02/15/21 documented as of this encounter
--- OUTSIDE RECORDS SUMMARY | 2024-05-22 23:47 | External Medical Summary | Summary of Care ---
Author Name Unknown Organization [facility] Address [address] [place] [address] Phone [phone] Care Team Providers Care Head Start Coordinator Name Role Phone Edith sOuna MD Primary Care Prov ider Reason for Visit * Reason Onset Date Comments [facility]: Maintenance 05/16/2024 Encounter Details Date Type Department Care Team (Late st Contact Info) Description 05/16/2024 10:00 AM EDT Scheduled Telephone [facility], [facility] [address] [place] [address] [facility], Nurse [facility] [address] [place] [address] Allergies Active Allergy Reactions Criticality Noted Date Comments Abhinav Inhibitors Cough 12/25/2021 Aspirin 02/15/2021 "delgdao" her stomach, had a GI bleed in the past Codeine 11/22/2020 Morphine 11/22/2020 Oxycodone 11/22/2020 Nausea, vomiting, chest pain Semaglutide(0.25 Or 0.5mg-Dos) Diarrhea 10/04/2022 Severe documented as of this encounter (statuses as of 05/16/2024) Medications Medication Sig Dispensed Refills Start Date End Date Status Ferrous Sulfate 325 (65 Fe) MG Oral Tablet (Feosol)Indications: anemia Take 1 Tablet by mouth daily with breakfast. 30 Tab 11/22/2020 Active Multivitamin Adult Oral TabletIndications:venegas pplementation Take by mouth 1 Tablet daily . 30 Tab 11/22/2020 Active Saline Nasal [place] 0.65 % Nasal SolutionIndications: for nasal dryness or congestion Administer 2 Sprays into each nostril in the morning and 2 Sprays at noon and 2 Sprays in the evening and 2 Sprays before bedtime. for nasal dryness or congestion. 60 mL 11/22/2020 Active [place] 3 1200 MG Oral CapsuleIndications:[facility] e[facility] health [...] (Aldactone)Indicatio ns:Chronic diastolic CHF (congestive heart failure) ([facility] [...] ications:COPD, group B, by GOLD 2017 classification ([facility]) INHALE ONE PUFF BY MOUTH EVERY MORNING 180 Each 2 01/16/2024 5 Active Furosemide 40 MG Oral Tablet (Lasix)Indications:C hronic diastolic CHF (congestive heart failure) ([facility] [...] Moderate episode of recurrent major depressive disorder ([facility]) TAKE ONE CAPSULE BY MOUTH [...] as of this encounter (statuses as of 05/16/2024) Active Problems Problem Noted Date Diagnosed Date [...] 70 11/22/2020 Coronary artery disease invo lving [place] coronary artery without angina pectoris 11/22/2020 Last [...] as of this encounter (statuses as of 05/16/2024) Resolved Problems Problem Noted Date Diagnosed Date Resolved Date COPD, severity to be determined 08/19/2022 09/18/2023 Overview: Per COPD GOLD Classification Last Assessment & Plan: "RED FLAG" COPD symptoms: Cough ("I get a different kind of cough than what I' have every day") Wheezing ("You can hear the whistling across the room") Medication Regimen All Classes - COLE Class D - Inhaled Ioxoibybgpimsc-JNDA-RQPP Combination Inhaler (Trellegy) Remote Patient Monitoring Vendor: No Connected RPM Device(s): No current devices Self-Management plan Other/Additional Comments: rescue inhaler, contact [facility] Exacerbation plan Chest Xray Additional Comments: [...] as of this encounter (statuses as of 05/16/2024) Immunizations Name Administration Dates Next Due COVID-19, [...] encounter Miscellaneous Notes * Telephone Encounter - Margi Marmolejo RN - 05/16/2024 8:46 AM EDT Spoke with pt for hospital follow up She reports she is feeling pretty good, "just tired" Denies any concerns at this time Reports that she has all of her medications and takings as prescribed per hospital d/c list. Aware of HV Friday with RNCM and f/u appt with PCP on Friday. Advised to call [facility] with any concerns. documented in this encounter Plan of Treatment Upcoming Encounters Date Type Department Care Team (Late st Contact Info) Description 05/17/2024 6:45 AM EDT Anticoagulation Centralized Clinical Pharmacy Services, [address] [place] [address] [place] [address] 05/18/2024 2:30 PM EDT Home Visit [facility] [address] [place] [address] Nette Dior RN [address] [place] [address] 05/19/2024 11:10 AM EDT Office Visit Family Medicine [address] [place] [phone] [address] [place] [address] 05/20/2024 10:00 AM EDT Office Visit Cardiology [address] [place] [address] Kym Brady PA-C [address] [place] [address] 08/02/2024 2:30 PM EST Nurse Only Ancillary [address] [place] [address] [place], Nurse Annual [address] [place] [address] 08/18/2024 2:30 PM EST Cardiac Studies Cardiac Studies, [facility] [address] [place] [address] 08/27/2024 1:20 PM EST Office Visit Family Medicine [address] [place] [phone] Marnie Reyes CRNP [address] [place] [address] [place] [address] 09/07/2024 3:00 PM EST Office Visit Cardiology [address] [place] [address] Ulices Phillips PA-C [address] [place] [address] 09/15/2024 1:00 PM EST Imaging Radiology, [address] [place] [address] 03/02/2025 2:20 PM EDT Office Visit Family Medicine [address] [place] [phone] Edith Osuna MD [address] [place] [address] [place] [address] Health Maintenance Due Date Last Done Comments Diabetic Foot Exam 05/31/2023 05/31/2022, 07/31/2021 CKD PHOS USE SMARTSET 55210 10/04/2023 10/04/2022, 1 09/30/2020 CKD HGB USE SMARTSET 13442 02/06/202402/05, 02/05/2023, 10/04/2022, Additional history exists *BISPHONATE [...] IN A LIFETIME-USE SMARTSET# 60722 Completed 02/05/2023 Alpha-1 Antitrypsin Discontinued HPV (Gardasil) [...] filedocumented as of this encounter Care Teams Head Start Coordinator Relationship Specialty Start Date End Date Edith Osuna MD [address] [place] [address] [place] [address] PCP - General Family Medicine 02/15/21 documented as of this encounter
--- OUTSIDE RECORDS SUMMARY | 2024-05-22 23:47 | External Medical Summary | Summary of Care ---
Author Name Unknown Organization [facility] [address] [facility] [address] Phone [phone] Care Team Providers Care Merchandising Lead Name Role Phone Edith Osuna MD Primary Care Prov ider Encounter Details Date Type Department Care Team (Late st Contact Info) Description 05/13/2024 Telephone Cardiology, [facility] [address] [place] [address] Blessing Sheehan CRNP [address] [place] [address] Allergies Active Allergy Reactions Criticality Noted Date [...] . 30 Tab 11/22/2020 Active Saline Nasal [place] 0.65 % Nasal SolutionIndications: for nasal dryness or congestion Administer 2 Sprays into each nostril in the morning and 2 Sprays at noon and 2 Sprays in the evening and 2 Sprays before bedtime. for nasal dryness or congestion. 60 mL 11/22/2020 Active [place] 3 1200 MG Oral CapsuleIndications:h eart health [...] all other days or as directed by [facility] 135 Tablet 3 09/24/2023 Active BD [...] hemoglobin A1c goal of less than 8.0% ([facility]) inject under the skin 42 units before bedtime 45 mL 1 11/26/2023 Active Atorvastatin Calcium 40 MG Oral Tablet (Lipitor) Take 1 Tablet by mouth in the morning. 90 Tablet 1 12/11/2023 Active Spironolactone 25 MG Oral Tablet (Aldactone)Indicatio ns:Chronic diastolic CHF (congestive heart failure) ([facility]) TAKE ONE TABLET BY MOUTH EVERY MORNING, AND ONE TABLET BEFORE BEDTIME 180 Tablet 1 12/25/2023 Active Metoprolol Succinate ER 50 MG Oral Tablet Extended Release 24 Hour (toPROL XL) TAKE ONE TABLET BY MOUTH EVERY DAY 90 Tablet 3 01/08/2024 5 Active Trelegy Ellipta 100-62.5-25 MCG/ACT Aerosol Powder Breath Activated (Fluticasone-Umeclid inium-Vilanterol)Ind ications:COPD, group B, by GOLD 2017 classification ([facility]) INHALE ONE PUFF BY MOUTH EVERY MORNING 180 Each 2 01/16/2024 5 Active Furosemide 40 MG Oral Tablet (Lasix)Indications:C hronic diastolic CHF (congestive heart failure) ([facility]) TAKE TWO TABLETS BY MOUTH [...] Moderate episode of recurrent major depressive disorder ([facility]) TAKE ONE CAPSULE BY MOUTH [...] mgIndications:COPD, group B, by GOLD 2017 classification ([facility]),Chronic respiratory failure with hypoxia, on home oxygen therapy ([facility]) 2.5 mg NEBULIZER PRN 11/26/2023 11/25/2024 Acti ve Albuterol Sulfate (Proventil) (2.5 MG/3ML) 0.083% inhalation solution 2.5 mgIndications:COPD, group B, by GOLD 2017 classification ([facility]),Chronic respiratory failure with hypoxia, on home oxygen therapy ([facility]) 2.5 mg NEBULIZER PRN 11/26/2023 [...] 68 11/22/2020 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 11/22/2020 Last [...] Classes - COLE Class D - Inhaled Jihlhtebgvopix-NRQJ-WHKS Combination Inhaler (Trellegy) Remote Patient Monitoring Vendor: No Connected RPM Device(s): No current devices Self-Management plan Other/Additional Comments: rescue inhaler, contact [facility] Exacerbation plan Chest Xray Additional Comments: [...] encounter Miscellaneous Notes * Telephone Encounter - Nelson Mae OSA - 05/14/2024 9:15 AM EDT Called patient spoke with son, he is aware of the date and time at [facility] on: RETURN CARDIOLOGY at 10:00 AM (30 min)Arrive by 9:45 AM May Appointment Provider:Kym Brady PA-C in [facility]OLOGY [facility] There must have been a cancellation, as of this morning, there was an opening with Kym on 05/20 at [facility]. Thank you. * Telephone Encounter - Jesenia Syed RN - 05/14/2024 8:25 AM EDT Opening available currently with Kym Brady PA-C at [facility] 05/22/24. * Telephone Encounter - Nelson Mae OSA - 05/13/2024 1:38 PM EDT Ulices, I have another request from Blessing for a sooner FU, possibly at [facility], Please advise, thank you. If not there, please let me know. Thank you. * Telephone Encounter - Blessing Sheehan CRNP - 05/13/2024 12:08 PM EDT Hospital discharge follow up needed. Admission date 05/11/24 Anticipated discharge date tomorrow 05/14/2024 Admission dx: Atypical chest pain and acute UTI Patient currently does not have a follow up with Ulices until August in [facility]. Can we see if we can get her a sooner appt with Ulices in [facility] in May or June. I know this will be hard! Thank you, Blessing documented in this encounter Plan of Treatment Upcoming Encounters Date Type Department Care Team (Late st Contact Info) Description 05/18/2024 2:30 PM EDT Home Visit [facility] [place] [address] [place] [address] Nette Dior, [place] [address] [place] [address] 05/20/2024 10:00 AM EDT Office Visit Cardiology [address] [place] [address] Kym Brady PA-C [address] [place] [address] 08/02/2024 2:30 PM EST Nurse Only Ancillary [address] [place] [address] [facility], Nurse [address] [place] [address] 08/18/2024 2:30 PM EST Cardiac Studies Cardiac Studies, [facility] [address] [place] [address] 08/27/2024 1:20 PM EST Office Visit Family Medicine [address] [place] [phone] Marnie Reyes CRNP [address] [place] [address] [place] [address] 09/07/2024 3:00 PM EST Office Visit Cardiology [address] [place] [address] Ulices Phillips PA-C [address] [place] [address] 09/15/2024 1:00 PM EST Imaging Radiology, [address] [place] [address] 03/02/2025 2:20 PM EDT Office Visit [address] [place] [phone] Edith Osuna MD [address] [place] [address] [place] [address] Health Maintenance Due Date Last Done Comments Diabetic Foot Exam 05/31/2023 05/31/2022, 07/31/2021 CKD PHOS USE SMARTSET 74769 10/04/2023 10/04/2022, 1 09/30/2020 CKD HGB USE SMARTSET 36928 02/06/202402/05, 02/05/2023, 10/04/2022, Additional history exists *BISPHONATE [...] D LEVEL ONCE IN A LIFETIME-USE SMARTSET# 15031 Completed 02/05/2023 Alpha-1 Antitrypsin Discontinued HPV (Gardasil) [...] filedocumented as of this encounter Care Teams Merchandising Lead Relationship Specialty Start Date End Date Edith Osuna MD [address] [place] [address] [place] [phone] PCP - General Family Medicine 02/15/21 documented as of this encounter
--- OUTSIDE RECORDS SUMMARY | 2024-05-22 23:47 | External Medical Summary | Summary of Care ---
Author Name Unknown Organization [facility] Address [address] [place] [place] [place] [address] Phone [phone] Care Team Providers Care Auto Glass Installer Name Role Phone Edith Osuna MD Primary Care Prov ider Reason for Visit * Reason Onset Date Comments [facility]: Maintenance 05/15/2024 Encounter Details Date Type Department Care Team (Late st Contact Info) Description 05/15/2024 11:30 AM EDT Scheduled Telephone [facility], [facility] [address] [place] [address] [facility], Nurse [facility] [address] [place] [address] Allergies Active Allergy Reactions Criticality Noted Date Comments Abhinav Inhibitors Cough 12/25/2021 Aspirin 02/15/2021 "delgado" her stomach, had a GI bleed in the past Codeine 11/22/2020 Morphine 11/22/2020 Oxycodone 11/22/2020 Nausea, vomiting, chest pain Semaglutide(0.25 Or 0.5mg-Dos) Diarrhea 10/04/2022 Severe documented as of this encounter (statuses as of 05/15/2024) Medications Medication Sig Dispensed Refills Start Date End Date Status Ferrous Sulfate 325 (65 Fe) MG Oral Tablet (Feosol)Indications: anemia Take 1 Tablet by mouth daily with breakfast. 30 Tab 11/22/2020 Active Multivitamin Adult Oral TabletIndications:venegas pplementation Take by mouth 1 Tablet daily . 30 Tab 11/22/2020 Active Saline Nasal [place] 0.65 % Nasal SolutionIndications: for nasal dryness or congestion Administer 2 Sprays into each nostril in the morning and 2 Sprays at noon and 2 Sprays in the evening and 2 Sprays before bedtime. for nasal dryness or congestion. 60 mL 11/22/2020 Active [place] 3 1200 MG Oral CapsuleIndications:h eart health [...] less than 8.0% ([facility]) Use to test blood sugar 3-4 times a day dx E11.9 400 Each 3 03/13/2021 Active OneTouch Verio In Vitro Strip (Glucose Blood)Indications:Ty pe 2 diabetes mellitus with hemoglobin A1c goal of less than 8.0% ([facility]) Use to test blood sugar 3-4 times [...] less than 8.0% ([facility]) Twice a day 200 Each 1 11/23/2021 [...] episode of recurrent major depressive disorder ([facility]) TAKE ONE CAPSULE BY MOUTH EVERY DAY [...] as of this encounter (statuses as of 05/15/2024) Active Problems Problem Noted Date Diagnosed Date [...] 68 11/22/2020 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 11/22/2020 Last [...] as of this encounter (statuses as of 05/15/2024) Resolved Problems Problem Noted Date Diagnosed Date Resolved Date COPD, severity to be determined 08/19/2022 09/18/2023 Overview: Per COPD GOLD Classification Last Assessment & Plan: "RED FLAG" COPD symptoms: Cough ("I get a different kind of cough than what I' have every day") Wheezing ("You can hear the whistling across the room") Medication Regimen All Classes - COLE Class D - Inhaled Dpkfcurgahckim-ZGRG-JDBM Combination Inhaler (Trellegy) Remote Patient Monitoring Vendor: No Connected RPM Device(s): No current devices Self-Management plan Other/Additional Comments: rescue inhaler, contact [facility] Exacerbation plan Chest Xray Additional [...] as of this encounter (statuses as of 05/15/2024) Immunizations Name Administration Dates Next Due COVID-19, [...] Telephone Encounter - Margi Marmolejo RN - 05/15/2024 10:03 AM EDT Telephone call to f/u on hospital discharge Pt was admitted to [facility] 05/11 - 05/14/24 for chest pain and UTI Call placed to son's numbers on file and no answer. LMOM to return call to [facility]. documented in this encounter Plan of Treatment Upcoming Encounters Date Type Department Care Team (Late st Contact Info) Description 05/16/2024 10:00 AM EDT Scheduled Telephone [facility], [facility] [address] [place] [address] [place], Nurse [facility] [address] [place] [address] 05/17/2024 6:45 AM EDT [facility] Clinical Pharmacy Services, Luna Orion [address] [place] [address] [place] [address] [place] [address] 05/18/2024 2:30 PM EDT Home Visit [facility], [facility] [address] [place] [address] Nette Dior, OCTAV[place] [address] [place] [address] 05/19/2024 11:10 AM EDT Office Visit Family Medicine [address] [phone] Linda Martin [address] [place] [address] 05/20/2024 10:00 AM EDT Office Visit Cardiology [address] [place] [address] Kym Brady PA-C [address] [place] [address] 08/02/2024 2:30 PM EST Nurse Only Ancillary [address] [place] [address] [place], Nurse [address] [place] [address] 08/18/2024 2:30 PM EST Cardiac Studies Cardiac Studies, [facility] [address] [place] [address] 08/27/2024 1:20 PM EST Office Visit Family Medicine [address] [place] [phone] Manrie Reyes[address] [place] [address] 09/07/2024 3:00 PM EST Office Visit Cardiology [address] [place] [address] Ulices Phillips PA-C [address] [place] [address] 09/15/2024 1:00 PM EST Imaging Radiology, [address] [place] [address] 03/02/2025 2:20 PM EDT Office Visit Family Medicine [address] [place] [phone] Edith Osuna MD [address] [place] [address] [place] [address] Health Maintenance Due Date Last Done Comments Diabetic Foot Exam 05/31/2023 05/31/2022, 07/31/2021 CKD PHOS USE SMARTSET 99668 10/04/2023 10/04/2022, 1 09/30/2020 CKD HGB USE SMARTSET 79656 02/06/202402/05, 02/05/2023, 10/04/2022, Additional history exists *BISPHONATE [...] D LEVEL ONCE IN A LIFETIME-USE SMARTSET# 11222 Completed 02/05/2023 Alpha-1 Antitrypsin Discontinued HPV (Gardasil) [...] filedocumented as of this encounter Care Teams Auto Glass Installer Relationship Specialty Start Date End Date Edith Osuna MD [address] [place] [address] [place] [address] PCP - General Family Medicine 02/15/21 documented as of this encounter
--- OUTSIDE RECORDS SUMMARY | 2024-05-22 23:47 | External Medical Summary | Summary of Care ---
Author Name Unknown Organization [facility] Address [address] [place] [address] Phone [phone] Care Team Providers Care Hydraulic Corrugating Machine Operator Name Role Phone Edith Osuna MD Primary Care Prov ider Reason for Visit * Reason Comments Medication Refill Encounter Details Date Type Department Care Team (Late st Contact Info) Description 05/11/2024 Refill Family Medicine [address] [phone] Edith Osuna MD [address] [place] [address] [place] [address] Allergies Active Allergy Reactions Criticality Noted Date Comments Abhinav Inhibitors Cough 12/25/2021 Aspirin 02/15/2021 "delgado" her stomach, had a GI bleed in the past Codeine 11/22/2020 Morphine 11/22/2020 Oxycodone 11/22/2020 Nausea, vomiting, chest pain Semaglutide(0.25 Or 0.5mg-Dos) Diarrhea 10/04/2022 Severe documented as of this encounter (statuses as of 05/12/2024) Medications Medication Sig Dispensed Refills Start Date End Date Status Ferrous Sulfate 325 (65 Fe) MG Oral Tablet (Feosol)Indications :anemia Take 1 Tablet by mouth daily with breakfast. 30 Tab 11/22/2020 Active Multivitamin Adult Oral TabletIndications:s upplementation Take by mouth 1 Tablet daily . 30 Tab 11/22/2020 Active Saline Nasal [place] 0.65 % Nasal SolutionIndications :for nasal dryness or congestion Administer 2 Sprays into each nostril in the morning and 2 Sprays at noon and 2 Sprays in the evening and 2 Sprays before bedtime. for nasal dryness or congestion. 60 mL 11/22/2020 Active [place] 3 1200 MG Oral CapsuleIndications: heart health [...] all other days or as directed by [facility] 135 Tablet 3 09/24/2023 [...] hemoglobin A1c goal of less than 8.0% ([facility]) inject under the skin 42 units before bedtime 45 mL 1 11/26/2023 Active Atorvastatin Calcium 40 MG Oral Tablet (Lipitor) Take 1 Tablet by mouth in the morning. 90 Tablet 1 12/11/2023 Active Spironolactone 25 MG Oral Tablet (Aldactone)Indicati ons:Chronic diastolic CHF (congestive heart failure) ([facility]) TAKE ONE TABLET BY MOUTH [...] ndications:COPD, group B, by GOLD 2017 classification ([facility]) INHALE ONE PUFF BY MOUTH EVERY MORNING 180 Each 2 01/16/2024 01/16/20 25 Active Furosemide 40 MG Oral Tablet (Lasix)Indications: Chronic diastolic CHF (congestive heart failure) ([facility]) TAKE TWO TABLETS BY MOUTH [...] :Moderate episode of recurrent major depressive disorder ([facility]) TAKE ONE CAPSULE BY MOUTH EVERY DAY 90 Capsule 3 03/17/2024 03/17/20 25 Active traZODone HCl 50 MG Oral Tablet (Desyrel) TAKE ONE TABLET BY MOUTH EVERY DAY AT BEDTIME 90 Tablet 2 05/12/2024 05/12/20 25 Active traZODone HCl 50 MG Oral Tablet (Desyrel) TAKE ONE TABLET BY MOUTH EVERY DAY AT BEDTIME 90 Tablet 1 11/18/2023 05/11/20 24 Discontinu ed(Refill) Hospital, Clinic, or Other Facility Administered Medication Ordered Dose Route Frequency Start Date End Date Status Albuterol Sulfate (Proventil) (5 MG/ML) 0.5% *conc* inhalation solution 2.5 mgIndications:COPD, group B, by GOLD 2017 classification ([facility]),Chronic respiratory failure with hypoxia, on home oxygen therapy ([facility]) 2.5 mg NEBULIZER PRN 11/26/2023 11/25/2024 Acti ve Albuterol Sulfate (Proventil) (2.5 MG/3ML) 0.083% inhalation solution 2.5 mgIndications:COPD, group B, by GOLD 2017 classification ([facility]),Chronic respiratory failure with hypoxia, on home oxygen therapy ([facility]) 2.5 mg NEBULIZER PRN 11/26/2023 11/25/2024 Acti ve documented as of this encounter (statuses as of 05/12/2024) Active Problems Problem Noted Date Diagnosed Date [...] 11/22/2020 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 11/22/2020 [...] as of this encounter (statuses as of 05/12/2024) Resolved Problems Problem Noted Date Diagnosed Date Resolved Date COPD, severity to be determined 08/19/2022 09/18/2023 Overview: Per COPD GOLD Classification Last Assessment & Plan: "RED FLAG" COPD symptoms: Cough ("I get a different kind of cough than what I' have every day") Wheezing ("You can hear the whistling across the room") Medication Regimen All Classes - COLE Class D - Inhaled Mrbkgghndwpmii-FRZP-[id number] Combination Inhaler (Trellegy) Remote Patient Monitoring Vendor: No Connected RPM Device(s): No current devices Self-Management plan Other/Additional Comments: rescue inhaler, contact [facility] Exacerbation plan Chest Xray Additional [...] as of this encounter (statuses as of 05/12/2024) Immunizations Name Administration Dates Next Due COVID-19, [...] encounter Miscellaneous Notes * Telephone Encounter - Margarito Hu [facility] - 05/12/2024 2:19 PM EDTSigned Prescriptions: Disp Refills traZODone HCl 50 MG Oral Tablet (Desyrel) 90 Tab*2 Sig: TAKE ONE TABLET BY MOUTH EVERY DAY AT BEDTIME Authorizing Provider: EDITH OSUNA Ordering User: MARGARITO HU * Telephone Encounter - Margarito Hu [facility] - 05/12/2024 2:19 PM EDTSigned Prescriptions: Disp Refills traZODone HCl 50 MG Oral Tablet (Desyrel) 90 Tab*2 Sig: TAKE ONE TABLET BY MOUTH EVERY DAY AT BEDTIME Authorizing Provider: EDITH OSUNA Ordering User: MARGARITO HU * Telephone Encounter - Funmilayo Pizano CPhT - 05/12/2024 1:52 PM EDT Did you pend patient's preferred pharmacy and medication before forwarding?yes Pharmacy: [facility] Pending Prescriptions: Disp Refills traZODone HCl 50 MG Oral Tablet (Desyrel) 90 Tab*1 Sig: TAKE ONE TABLET BY MOUTH EVERY DAY AT BEDTIME Last Visit: 02/25/2024 (in office), 08/12/2023 (telemedicine) Next Visit: 08/27/2024 If no future appointments scheduled, and last appointment is greater than a year ago, please schedule patient for a follow-up appointment Last date the medication was ordered: 11/18/23 Is this request for a controlled substance?No Urine Drug Screen:No results found for this or any previous visit. Patient Phone Numbers Labs: Lab Results Component Value Date/Time CREAT 1.6 (H) 12/30/2023 02:52 PM POTASSIUM 5.1 12/30/2023 02:52 PM TSH 4.93 (H) 12/30/2023 02:52 PM LDL 101 12/30/2023 02:52 PM LDLCALC 97 11/14/2020 04:32 AM ALT 15 12/30/2023 02:52 PM HGBA1C 7.8 (H) 12/30/2023 02:52 PM HGBA1C 8.4 (H) 11/14/2020 04:32 AM documented in this encounter Plan of Treatment Upcoming Encounters Date Type Department Care Team (Late st Contact Info) Description 05/14/2024 6:30 AM EDT Anticoagulation [facility] Services, Luna Sears [address] [place] [address] [place] [address] [facility], [address] [place] [address] 05/18/2024 2:30 PM EDT Home Visit [place]ie at [address] [place] [address] Nette Dior, RN [address] [place] [address] 08/02/2024 2:30 PM EST Nurse Only Ancillary [address] [place] [address] [place], Nurse Annual [address] [place] [address] 08/18/2024 2:30 PM EST Cardiac Studies Cardiac Studies, [facility] [address] [place] [address] 08/27/2024 1:20 PM EST Office Visit Family Medicine [address] [place] [phone] Marnie Reyes CRNP [address] [place] [address] [place] [address] 09/07/2024 3:00 PM EST Office Visit Cardiology [address] [place] [address] Ulices Phillips PA-C [address] [place] [address] 09/15/2024 1:00 PM EST Imaging Radiology, [address] [place] [address] 03/02/2025 2:20 PM EDT Office Visit Family [address] [place] [phone] Edith Osuna MD [address] [place] [address] [place] [phone] Health Maintenance Due Date Last Done Comments Diabetic Foot Exam 05/31/2023 05/31/2022, 07/31/2021 CKD PHOS USE SMARTSET 85530 10/04/2023 10/04/2022, 1 09/30/2020 CKD HGB USE SMARTSET 31973 02/06/202402/05, 02/05/2023, 10/04/2022, Additional history exists *BISPHONATE [...] 07/22/20 Depression Monitoring 07/30/2024 07/30/2023 Albumin/Creatinine Ratio 08/29/202408/29/ [...] D LEVEL ONCE IN A LIFETIME-USE SMARTSET# 26828 Completed 02/05/2023 Alpha-1 Antitrypsin Discontinued HPV (Gardasil) [...] filedocumented as of this encounter Care Teams Hydraulic Corrugating Machine Operator Relationship Specialty Start Date End Date Edith Osuna MD [address] [place] [address] [place] [address] PCP - General Family Medicine 02/15/21 documented as of this encounter
--- OUTSIDE RECORDS SUMMARY | 2024-05-22 23:47 | External Medical Summary | Summary of Care ---
Author Name Unknown Organization [facility] [address] [facility] [address] Phone [phone] Care Team Providers Care Vamp Liner Name Role Phone Edith Osuna MD Primary Care Prov ider Encounter Details Date Type Department Care Team (Late st Contact Info) Description 05/13/2024 Telephone Cardiology, [facility] [address] [place] [address] Blessing Sheehan CRNP [address] [place] [address] Allergies Active Allergy Reactions Criticality Noted Date [...] . 30 Tab 11/22/2020 Active Saline Nasal [place] 0.65 % Nasal SolutionIndications: for nasal dryness or congestion Administer 2 Sprays into each nostril in the morning and 2 Sprays at noon and 2 Sprays in the evening and 2 Sprays before bedtime. for nasal dryness or congestion. 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 11/22/2020 Last [...] Classes - COLE Class D - Inhaled Wfntlhdwywsayf-LHKR-JLFH Combination Inhaler (Trellegy) Remote Patient Monitoring Vendor: No Connected RPM Device(s): No current devices Self-Management plan Other/Additional Comments: rescue inhaler, contact [facility] Exacerbation plan Chest Xray Additional Comments: [...] aware of the date and time at [facility] on: RETURN CARDIOLOGY at 10:00 AM (30 min)Arrive by 9:45 AM May Appointment Provider:Kym Brady PA-C in CARDIOLOGY [facility] There must have been a cancellation, as of this morning, there was an opening with Kym on 05/20 at [facility]. Thank you. * Telephone Encounter - Jesenia Syed RN - 05/14/2024 8:25 AM EDT Opening available currently with Kym Brady PA-C at [facility] 05/22/24. * Telephone Encounter - Nelson Mae OSA - 05/13/2024 1:38 PM EDT Ulices, I have another request from Blessing for a sooner FU, possibly at [facility], Please advise, thank you. If not there, please let me know. Thank you. * Telephone Encounter - Blessing Sheehan CRNP - 05/13/2024 12:08 PM EDT Hospital discharge follow up needed. Admission date 05/11/24 Anticipated discharge date tomorrow 05/14/2024 Admission dx: Atypical chest pain and acute UTI Patient currently does not have a follow up with Ulices until August in [facility]. Can we see if we can get her a sooner appt with Ulices in [facility] in May or June. I know this will be hard! Thank you, Blessing documented in this encounter Plan of Treatment Upcoming Encounters Date Type Department Care Team (Late st Contact Info) Description 05/18/2024 2:30 PM EDT Home Visit [place] at [place], [facility] [address] [place] [address] Nette Dior, OCTAVIO [address] [place] [address] 05/20/2024 10:00 AM EDT Office Visit Cardiology [address] [place] [address] Kym Brady PA-C [address] [place] [address] 08/02/2024 2:30 PM EST Nurse Only Ancillary [address] [place] [address] [facility], Nurse [address] [place] [address] 08/18/2024 2:30 PM EST Cardiac Studies Cardiac Studies, [facility] [address] [place] [address] 08/27/2024 1:20 PM EST Office Visit Family Medicine [address] [place] [phone] Marnie Reyes CRNP [address] [place] [address] [place] [address] 09/07/2024 3:00 PM EST Office Visit Cardiology [address] [place] [address] Ulices Phillips PA-C [address] [place] [address] 09/15/2024 1:00 PM EST Imaging Radiology, [address] [place] [address] 03/02/2025 2:20 PM EDT Office Visit [address] [place] [phone] Edith Osuna MD [address] [place] [address] [place] [address] Health Maintenance Due Date Last Done Comments Diabetic Foot Exam 05/31/2023 05/31/2022, 07/31/2021 CKD PHOS USE SMARTSET 44501 10/04/2023 10/04/2022, 1 09/30/2020 CKD HGB USE SMARTSET 78536 02/06/202402/05, 02/05/2023, 10/04/2022, Additional history exists *BISPHONATE [...] D LEVEL ONCE IN A LIFETIME-USE SMARTSET# [id number] Completed 02/05/2023 Alpha-1 Antitrypsin Discontinued HPV (Gardasil) [...] filedocumented as of this encounter Care Teams Vamp Liner Relationship Specialty Start Date End Date Edith Osuna MD [address] [place] [address] [place] [phone] PCP - General Family Medicine 02/15/21 documented as of this encounter
--- NOTE | 2024-05-23 00:02 | Emergency Department Note ---
History of Present Illness General Chief Complaint: Flu Like Symptoms Stated Complaint: Flu-Like Symptoms, SOB, Weakness Time Seen by Provider: 05/22/24 23:45 History of Present Illness Provider Complaint: shortness of breath Onset (ago): day(s) (2) Consistency/Duration: + progressively worsening Relieved By: + upright position Exacerbated By: + lying flat Context: + recent illness (On cefdinir for UTI) Known history of: congestive heart failure and PE (On Coumadin) Associated symptoms: + fever, + orthopnea, + nausea/vomiting and + chest congestion; no chest pain, no hemoptysis or no abdominal pain Related Data Home oxygen amount: 3 liters Home Medications Medication Instructions Recorded Confirmed Type atorvastatin 40 mg tablet 40 mg PO QAM 09/02/23 05/11/24 History clopidogrel 75 mg tablet 75 mg PO DAILY 09/02/23 05/11/24 History diltiazem HCl 120 mg 120 mg PO DAILY 09/02/23 05/11/24 History capsule,extended release 24 hr fluoxetine 20 mg capsule 20 mg PO DAILY 09/02/23 05/11/24 History fluticasone fur. 100 mcg-umeclid 1 inh inhalation QAM 09/02/23 05/11/24 History 62.5 mcg-vilant 25 mcg inhalat.powder (Trelegy Ellipta) furosemide 40 mg tablet 80 mg PO QAM 09/02/23 05/11/24 History insulin aspart U-100 100 unit/mL 10 sliding scale dose subcut UD 09/02/23 05/11/24 History subcutaneous solution (Novolog U-100 Insulin aspart) metoprolol succinate 50 mg 50 mg PO DAILY 09/02/23 05/11/24 History tablet,extended release 24 hr omeprazole 20 mg capsule,delayed 20 mg PO DAILYBB 09/02/23 05/11/24 History release spironolactone 25 mg tablet 25 mg PO BID 09/02/23 05/11/24 History trazodone 50 mg tablet 50 mg PO HS 09/02/23 05/11/24 History acetaminophen 325 mg tablet 650 mg PO Q4H PRN Fever Or Pain 05/11/24 05/11/24 History (Tylenol) albuterol sulfate 2.5 mg/3 mL 2.5 mg inhalation Q6H PRN 05/11/24 05/11/24 History (0.083 %) solution for nebulization Shortness Of Breath Or Wheezing albuterol sulfate 90 mcg/actuation 2 inh inhalation Q4H PRN Shortness 05/11/24 05/11/24 History breath activated powder inhaler Of Breath Or Wheezing calcium carbonate 600 mg-vitamin 1 tab PO QAM 05/11/24 05/11/24 History D3 5 mcg (200 unit) tablet ezetimibe 10 mg tablet 10 mg PO DAILY 05/11/24 05/11/24 History ferrous sulfate 325 mg (65 mg 325 mg PO QAM 05/11/24 05/11/24 History iron) tablet insulin degludec 100 unit/mL (3 42 unit subcut HS 05/11/24 05/11/24 History mL) subcutaneous pen (Tresiba FlexTouch U-100 insulin) lutein 25 mg-zeaxanthin 5 mg 1 cap PO DAILY 05/11/24 05/11/24 History capsule (Ocuvite Lutein) magnesium oxide 400 mg (241.3 mg 400 mg PO DAILY 05/11/24 05/11/24 History magnesium) tablet multivitamin 1 tab PO DAILY 05/11/24 05/11/24 History omega-3 1,050 ks-bdu-zsv-dpa-fish 2 cap PO HS 05/11/24 05/11/24 History oil 1,200 mg capsule (Banks-3 (with docosapentaenoic acid)) sennosides 8.6 mg capsule (senna) 8.6 mg PO DAILY PRN Constipation 05/11/24 05/11/24 History warfarin 5 mg tablet 5 mg PO 3XWK 05/11/24 05/11/24 History warfarin 5 mg tablet 10 mg PO 4XWK 05/11/24 05/11/24 History lactobacillus combination no.4 3 3,000 mmu cells PO DAILY 2 weeks 05/14/24 Rx billion cell capsule (Probiotic) #14 caps Allergies Allergy/AdvReac Type Severity Reaction Status Date / Time morphine Allergy Unknown vomiting Unverified 05/11/24 22:07 oxycodone Allergy Unknown vomiting Unverified 05/11/24 22:07 adhesive AdvReac Unknown Unknown Verified 05/11/24 22:07 adhesive tape AdvReac Unknown Unknown Verified 05/11/24 22:07 codeine AdvReac Unknown Unknown Verified 05/11/24 22:07 propoxyphene AdvReac Unknown Unknown Verified 05/11/24 22:07 [From Darvoelizabetht-N] aspirin AdvReac Gastrointestinal Verified 05/11/24 22:07 Upset Past Med/Surg History Problem List (Updated 05/23/24 @ 02:14 by Fredy Muñoz MD) CHF exacerbation (Acute) Chest pain SOB (shortness of breath) JORGE (acute kidney injury) (Acute) Acute hyperkalemia (Acute) Acute dyspnea (Acute) Diabetic nephropathy associated with type 2 diabetes mellitus (Acute) Pacemaker (Chronic) Labyrinthitis Medical History Nonproliferative diabetic retinopathy Anticoagulant long-term use CAD (coronary artery disease) Chronic diastolic congestive heart failure Dyslipidemia Hypertension Diabetes mellitus Atrial fibrillation Chronic renal failure, stage 3 (moderate) Skin cancer Presence of arterial stent Surgical History H/O mitral valve replacement Previous back surgery H/O: section History of cholecystectomy Hx of CABG H/O: hysterectomy Family History Mother Hypertension Hyperlipemia Diabetes Stroke Father Stroke Social History Smoking Status: Former smoker Tobacco Type: Cigarettes Hx Alcohol Use: No Hx Substance Use: No Preferred Language: Malay Communication Ability: Effective Prehemmer Required: No Beliefs That Will Affect Care: None Current Living Situation: Family Current Living Situation Comment: lives with son Feels Safe at Home: Hesitant to Answer Assistive Devices: Cane, Glasses, Oxygen - Continuous and Stair Lift Physical Exam 2 Vital Signs: Vital Signs - 24 hr 05/22/24 23:29 05/22/24 23:29 05/22/24 23:45 Temperature 37.9 C H Temperature Source Oral Pulse Rate 94 H 69 Respiratory Rate 21 Respiratory Effort / Characteristics SOB on Exertion Non-Labored Respiratory Depth Normal Respiratory Patter n Regular Pulse Oximetry 95 Oxygen Delivery Me thod Nasal Cannula Oxygen Flow Rate 4 Sepsis Recent Feve r Within 48 Hours Yes Sepsis New/Unexpla ined Change in Men yuval Status No Sepsis Action Take n by Nursing No Action Required 05/22/24 23:50 05/22/24 23:50 05/23/24 00:35 Temperature Temperature Source Pulse Rate Respiratory Rate Respiratory Effort / Characteristics Non-Labored Non-Labored Respiratory Depth Normal Normal Respiratory Patter n Pulse Oximetry Oxygen Delivery Me thod Nasal Cannula Oxygen Flow Rate Sepsis Recent Feve r Within 48 Hours Sepsis New/Unexpla ined Change in Men yuval Status Sepsis Action Take n by Nursing 05/23/24 00:45 05/23/24 01:15 05/23/24 01:29 Temperature Temperature Source Pulse Rate Respiratory Rate Respiratory Effort / Characteristics Non-Labored Non-Labored Non-Labored Respiratory Depth Normal Normal Normal Respiratory Patter n Pulse Oximetry Oxygen Delivery Me thod Oxygen Flow Rate Sepsis Recent Feve r Within 48 Hours Sepsis New/Unexpla ined Change in Men yuval Status Sepsis Action Take n by Nursing Physical Exam: Physical Exam HENT: Exam performed. - Head: Normocephalic and atraumatic. EYES: Conjunctivae and EOM are normal. Right eye exhibits no discharge. Left eye exhibits no discharge. No scleral icterus. NECK: Normal range of motion. Neck supple. No JVD present. CV: Normal rate, irregular rhythm, normal heart sounds and intact distal pulses. 1+ pitting edema of the bilateral lower extremities. Palpable radial pulses bue. PULM/CHEST: Inspiratory rales bilaterally. ABD: The abdomen is soft. There is no tenderness. NEURO: Motor and sensation grossly intact. SKIN: Skin is warm and dry. He is not diaphoretic. PSYCH: normal mood and affect. Behavior is normal. Judgment and thought content normal. Course Course 2345: The patient was evaluated in room C10. A complete history and physical exam was performed Cardiac monitoring: An order was placed for continuous cardiac monitoring. The monitor shows a rate of 90 with paced rhythm interpreted by 0145: Vital signs stable. H&P, labs and imaging are consistent with patient being fluid overloaded. [facility] with [facility]. [facility] Medications Discontinued Medications Acetaminophen (Acetaminophen 500 Mg Tab) 1,000 mg PO NOW STA Stop: 05/22/24 23:51 Last Admin: 05/23/24 00:23 Dose: 1,000 mg Documented By: SADI Furosemide (Furosemide 40 Mg/4 Ml Vial) 40 mg IV ONE ONE Stop: 05/23/24 01:45 Last Admin: 05/23/24 01:51 Dose: 40 mg Documented By: SADI Ondansetron HCl (Ondansetron Inj 2 Mg/Ml 2 Ml Vial) 4 mg IV NOW STA Stop: 05/22/24 23:51 Last Admin: 05/23/24 00:23 Dose: 4 mg Documented By: SADI Medical Decision Making Medical Records Attestation: I reviewed the patient's medical records. External medical records reviewed. Patient was admitted from May 11 to May 14, 2024. At that time the patient was admitted for chest pain. Her initial troponin was 14 and it trended downward. Patient was also diagnosed with a UTI. Patient urine culture grew out a pansensitive E. coli and patient was treated with Rocephin and was discharged with prescription cefdinir. Patient has a baseline creatinine of 1.6. Patient's Lasix was held at time of discharge. Laboratory Data Attestation: I reviewed the patient's lab results. 05/22/24 23:50 05/22/24 23:50 Lab Results 05/22/24 05/23/24 Range/Units 23:50 00:13 WBC 10.55 (4.8-10.8) K/ul RBC 3.53 L (4.20-5.40) M/uL Hgb 10.1 L (12.0-16.0) g/dl Hct 31.6 L (37.0-47.0) % MCV 89.5 (80.0-100.0) fL MCH 28.6 (25.0-34.0) pg MCHC 32.0 (32.0-36.0) g/dL RDW Std Deviation 47.7 H (36.4-46.3) fL RDW Coeff of Asya 14.6 H (11.5-14.5) % Plt Count 282 (130-400) K/uL MPV 10.0 (9.4-12.4) fL Immature Gran % (Auto) 0.4 % Neut % (Auto) 85.4 % Lymph % (Auto) 6.4 % [place] % (Auto) 7.3 % Eos % (Auto) 0.1 % Baso % (Auto) 0.4 % Neut # (Auto) 9.02 H (1.40-6.50) K/uL Lymph # (Auto) 0.67 L (1.20-3.40) K/uL [place] # (Auto) 0.77 H (0.11-0.59) K/uL Eos # (Auto) 0.01 (0.00-0.50) K/uL Baso # (Auto) 0.04 (0.00-0.20) K/uL Immature Gran # (Auto) 0.04 (0.01-0.20) K/uL PT 21.4 H (9.0-12.0) Seconds INR 2.1 H (0.9-1.1) APTT 37 H (21-31) Seconds PTT Ratio 1.4 VBG pH 7.46 H (7.36-7.41) VBG pCO2 41 (38-50) mmHg VBG pO2 99 mmHg VBG HCO3 29 mmol/L VBG O2 Saturation 98.7 % VBG Base Excess 4.9 mEq/L Sodium 133 L (136-145) mmol/L Potassium 5.1 (3.5-5.1) mmol/L Chloride 97 L (98-107) mmol/L Carbon Dioxide 28 (21-32) mmol/L Anion Gap 8 (3-11) BUN 29 H (6-23) mg/dl Creatinine 1.56 H (0.6-1.2) mg/dl Est Cr Clr Drug Dosing 32.5 ml/min Est GFR ( Amer) 35.7 ml/min Est GFR (Non-Af Amer) 30.8 ml/min BUN/Creatinine Ratio 18.6 (10-20) Glucose 425 H* (70-99(Fasting)) mg/dl Lactate 1.5 (0.4-2.0) mmol/L Calcium 8.9 (8.6-10.3) mg/dl Magnesium 1.6 L (1.7-2.4) mg/dl Total Bilirubin 0.6 (0.2-1.0) mg/dl Direct Bilirubin 0.2 (0-0.2) mg/dl AST 15 (13-39) U/L ALT 12 (7-52) U/L Alkaline Phosphatase 69 (34-104) U/L Troponin I High Sens 17.1 H (0-14) pg/ml B-Natriuretic Peptide 270 H (0-100) pg/ml Total Protein 7.3 (6.0-8.3) gm/dl Albumin 3.5 (3.4-5.0) gm/dl Procalcitonin 0.06 (0-0.5) ng/ml Urine Color Yellow Urine Appearance Clear (Clear) Urine pH 5.5 (4.5-7.5) Ur Specific [place] 1.016 (1.000-1.030) Urine Protein 1+ H (Negative) Urine Glucose (UA) 2+ H (Negative) Urine Ketones Negative (Negative) Urine Blood Negative (Negative) Urine Nitrite Negative (Negative) Urine Bilirubin Negative (Negative) Urine Urobilinogen Negative (Negative) Ur Leukocyte Esterase Trace H (Negative) Urine WBC (Auto) 0-5 (0-5) /hpf Urine RBC (Auto) 0-2 (0-2) /hpf U Hyaline Cast (Auto) 0-2 (0-2) /lpf U Epithel Cells (Auto) 0-2 (0-2) /hpf Urine Bacteria (Auto) None Seen (None Seen) Adenovirus (PCR) Not Detected (NotDetected) B. pertussis DNA (PCR) Not Detected (NotDetected) B.parapertussis DNA PCR Not Detected (NotDetected) C. pneumoniae DNA (PCR) Not Detected (NotDetected) Coronavirus OC43 (PCR) Not Detected (NotDetected) Coronavirus HKU1 (PCR) Not Detected (NotDetected) Coronavirus 229E (PCR) Not Detected (NotDetected) SARS-CoV-2 (PCR) Not Detected (NotDetected) Coronavirus NL63 (PCR) Not Detected (NotDetected) Human Metapneumovir PCR Not Detected (NotDetected) Influenza Type A (PCR) Not Detected (NotDetected) Influenza Type B (PCR) Not Detected (NotDetected) M. pneumoniae (PCR) Not Detected (NotDetected) Parainfluenza 1 (PCR) Not Detected (NotDetected) Parainfluenza 2 (PCR) Not Detected (NotDetected) Parainfluenza 3 (PCR) Not Detected (NotDetected) Parainfluenza 4 (PCR) Not Detected (NotDetected) RSV (PCR) Not Detected (NotDetected) Entero/Rhino (PCR) Not Detected (NotDetected) Imaging Data Attestation: I personally reviewed and interpreted this imaging study as follows: My Impression: Chest x-ray: Cardiomegaly with cephalization. ECG Data Attestation: I personally reviewed and interpreted this ECG as follows: Interpretation: Atrial fibrillation with frequent ventricular paced beats. A rate of 92. QRS [address] elevation or ST depression. [facility] Narrative 2345: The patient was evaluated in room C10. A complete history and physical exam was performed Cardiac monitoring: An order was placed for continuous cardiac monitoring. The monitor shows a rate of 90 with paced rhythm interpreted by me 0145: Vital signs stable. H&P, labs and imaging are consistent with patient being fluid overloaded. Patient be treated with IV Lasix and admitted to the [facility] hospitalist team. Impression & Plan CHF exacerbation Discharge Plan Visit Data Chief Complaint: Flu Like Symptoms Stated Complaint: Flu-Like Symptoms, SOB, Weakness ED Provider: Fredy Muñoz Discharge Problem: CHF exacerbation Patient Disposition: Being Evaluated by Hospitalist Forms Stand Alone Forms: My [facility] Prescriptions Prescriptions: No Action furosemide 40 mg tablet 80 mg PO QAM Hold Instructions: Resume on 05/16/24. atorvastatin 40 mg tablet 40 mg PO QAM trazodone 50 mg tablet 50 mg PO HS metoprolol succinate 50 mg tablet extended release 24 hr 50 mg PO DAILY clopidogrel 75 mg tablet 75 mg PO DAILY spironolactone 25 mg tablet 25 mg PO BID Hold Instructions: Resume on 05/16/24. insulin aspart U-100 [Novolog U-100 Insulin aspart] 100 unit/mL solution 10 sliding scale dose subcut UD Rx Instructions: 10units with breakfast and 10units with supper omeprazole 20 mg capsule,delayed release(DR/EC) 20 mg PO DAILYBB diltiazem HCl 120 mg capsule,extended release 24hr 120 mg PO DAILY fluoxetine 20 mg capsule 20 mg PO DAILY Trelegy Ellipta 100-62.5-25 mcg blister with device 1 inh INHALATION QAM insulin degludec [Tresiba FlexTouch U-100] 100 unit/mL (3 mL) insulin pen 42 unit SUBCUT HS magnesium oxide 400 mg (241.3 mg magnesium) Tablet 400 mg PO DAILY calcium carbonate-vitamin D3 600 mg-5 mcg (200 unit) Tablet 1 tab PO QAM lutein-zeaxanthin [Ocuvite Lutein 25] 25-5 mg Capsule 1 cap PO DAILY Banks-3 (with dpa) 1,050-1,200 mg Capsule 2 cap PO HS multivitamin Tablet 1 tab PO DAILY acetaminophen [Tylenol] 325 mg Tablet 650 mg PO Q4H PRN (Reason: Fever Or Pain) ferrous sulfate 325 mg (65 mg iron) Tablet 325 mg PO QAM warfarin 5 mg Tablet 10 mg PO 4XWK Rx Instructions: TAKE TWO 5MG TABLETS EVERY FRIDAY/FRIDAY/FRIDAY/FRIDAY. warfarin 5 mg Tablet 5 mg PO 3XWK Rx Instructions: TAKE 5MG EVERY FRIDAY/FRIDAY/FRIDAY. senna 8.6 mg Capsule 8.6 mg PO DAILY PRN (Reason: Constipation) albuterol sulfate 2.5 mg /3 mL (0.083 %) Solution For Nebulization 2.5 mg INHALATION Q6H PRN (Reason: Shortness Of Breath Or Wheezing) ezetimibe 10 mg tablet 10 mg PO DAILY albuterol sulfate 90 mcg/actuation Aerosol Powdr Breath Activated 2 inh INHALATION Q4H PRN (Reason: Shortness Of Breath Or Wheezing) Probiotic 3 billion cell capsule 3,000 mmu cells PO DAILY 14 Days Qty: 14 0RF Rx Instructions: administer with a meal Referrals Referrals: PCP,NO [Physician] - Discharge Problem: CHF exacerbation Qualifiers: Heart failure type: unspecified Qualified Code(s): I50.9 - Heart failure, unspecified
[2024-05-23 00:08] LABS: Base Excess VBG 4.9 mEq/L; HCO3 VBG 29 mmol/L; Oxygen Saturation VBG 98.7 %; PCO2 VBG 41 mmHg (38-50); PO2 VBG 99 mmHg; pH VBG 7.46 (7.36-7.41)
[2024-05-23 00:18] LABS: Basophils # (auto) 0.04 K/uL (0.00-0.20); Basophils % (auto) 0.4 %; Eosinophils # (auto) 0.01 K/uL (0.00-0.50); Eosinophils % (auto) 0.1 %; Hematocrit (blood only) 31.6 % (37.0-47.0); Hemoglobin 10.1 g/dl (12.0-16.0); Immature Granulocytes # (auto) 0.04 K/uL (0.01-0.20); Immature Granulocytes % (auto) 0.4 %; Lymphocytes # (auto) 0.67 K/uL (1.20-3.40); Lymphocytes % (auto) 6.4 %; Mean Corpuscular Hemoglobin 28.6 pg (25.0-34.0); Mean Corpuscular Volume 89.5 fL (80.0-100.0); Monocytes # (auto) 0.77 K/uL (0.11-0.59); Monocytes % (auto) 7.3 %; Neutrophils # (auto) 9.02 K/uL (1.40-6.50); Neutrophils % (auto) 85.4 %; Platelet Count 282 K/uL (130-400); RDW Coefficient of Variation 14.6 % (11.5-14.5); RDW Standard Deviation 47.7 fL (36.4-46.3); Red Blood Count 3.53 M/uL (4.20-5.40); White Blood Count 10.55 K/ul (4.8-10.8)
[2024-05-23] MEDS: ACETAMINOPHEN 500 MG TAB PO STA (00:23)
[2024-05-23] MEDS: ONDANSETRON INJ 2 MG/ML 2 ML VIAL IV STA (00:23)
[2024-05-23 00:30] LABS: Appearance Urine Clear (Clear); Bacteria Urine Automated None Seen (None Seen); Bilirubin Urine Negative (Negative); Blood Urine Negative (Negative); Cast Urine Automated 0-2 /lpf (0-2); Color Urine Yellow; Epithelial Cell Urine Auto 0-2 /hpf (0-2); Glucose Urine UA 2+ (Negative); Ketones Urine Negative (Negative); Leukocyte Esterase Urine Trace (Negative); Nitrite Urine Negative (Negative); Protein Urine 1+ (Negative); RBC Urine Automated 0-2 /hpf (0-2); Specific Gravity Urine 1.016 (1.000-1.030); Urobilinogen Urine Negative (Negative); WBC Urine Automated 0-5 /hpf (0-5); pH Urine 5.5 (4.5-7.5)
[2024-05-23 00:50] LABS: INR 2.1 (0.9-1.1); Partial Thromboplastin Ratio 1.4; Partial Thromboplastin Time 37 Seconds (21-31); Prothrombin Time 21.4 Seconds (9.0-12.0)
[2024-05-23 01:18] LABS: Albumin Level 3.5 gm/dl (3.4-5.0); BUN Creatinine Ratio 18.6 (10-20); Bilirubin Direct 0.2 mg/dl (0-0.2); Bilirubin,Total 0.6 mg/dl (0.2-1.0); Calcium 8.9 mg/dl (8.6-10.3); Creatinine Clr Calc Pharmacy 32.5 ml/min; Est GFR (African American) 35.7 ml/min; Est GFR (Non-African American) 30.8 ml/min; Magnesium 1.6 mg/dl (1.7-2.4); Potassium 5.1 mmol/L (3.5-5.1); Total Protein 7.3 gm/dl (6.0-8.3); Troponin I High Sensitivity 17.1 pg/ml (0-14)
[2024-05-23] MEDS: FUROSEMIDE 40 MG/4 ML VIAL IV ONE (01:51)
[2024-05-23 01:59] LABS: Adenovirus PCR Not Detected (NotDetected); Bordetella parapertussis PCR Not Detected (NotDetected); Bordetella pertussis PCR Not Detected (NotDetected); Chlamydia pneumoniae PCR Not Detected (NotDetected); Coronavirus 229E PCR Not Detected (NotDetected); Coronavirus CoV-2 (COVID19)PCR Not Detected (NotDetected); Coronavirus HKU1 PCR Not Detected (NotDetected); Coronavirus NL63 PCR Not Detected (NotDetected); Coronavirus OC43PCR Not Detected (NotDetected); Human Metapneumovirus PCR Not Detected (NotDetected); Influenza A PCR Not Detected (NotDetected); Influenza B PCR Not Detected (NotDetected); Mycoplasma pneumoniae PCR Not Detected (NotDetected); Parainfluenza Virus 1 PCR Not Detected (NotDetected); Parainfluenza Virus 2 PCR Not Detected (NotDetected); Parainfluenza Virus 3 PCR Not Detected (NotDetected); Parainfluenza Virus 4 PCR Not Detected (NotDetected); Respiratory Syncytial VirusPCR Not Detected (NotDetected); Rhinovirus/Enterovirus PCR Not Detected (NotDetected)
[2024-05-23] MEDS: MAGNESIUM SULFATE / D5W 1 GM/100 ML BAG IV ONE (04:03)
--- NOTE | 2024-05-23 04:19 | History & Physical Report ---
Date of Service May 23, 2024 Assessment & Plan (1) Acute on chronic diastolic (congestive) heart failure: Plan: 79-year-old female with past medical history significant for type 2 diabetes, CKD stage III, hyperlipidemia, history of hypokalemia, chronic respiratory failure with hypoxia on home oxygen 3 L 31/03, subclinical hypothyroidism, COPD, paroxysmal atrial fibrillation, chronic diastolic CHF, history of CAD s/p stents, morbid obesity, drug-induced constipation, GERD, degenerative disc disease, osteoporosis, chronic pain syndrome, depression, history of mitral valve replacement with mechanical valve, who lives at home with her son and family and ambulates mostly with a cane comes because of Shortness of breath. Patient was recently in the hospital with chest pain and echo was unremarkable and she was also treated for acute UTI and discharged on p.o. antibiotics to complete the course and advised to hold diuretics for 2 days for JORGE and follow- up with PCP comes because of shortness of breath today. Patient states she held her diuretics for last 4 days and since yesterday she is feeling short of breath. She also having fever with a lot of sweating. Has mild cough. No chest pain. No nausea. No abdominal pain. Normal bowel and bladder movements. No headache. No runny nose or sore throat. No earaches. acute on chronic diastolic CHF Was not taking her diuretics for last [address] on IV Lasix 40 mg twice daily Continue home spironolactone Daily weights and I's and O's Close monitoring the telemetry Cardiology consult in a.m. for further recommendations Fevers Recently treated for UTI completed antibiotics UA is negative BioFire negative Procalcitonin negative Will get a CT chest rule out any underlying infiltrates Close monitor History of CAD s/p stents On statin, Plavix, and metoprolol succinate Chronic respiratory failure on home oxygen 3 L History of COPD Continue home inhalers and nebs prn Type 2 diabetes Hyperglycemia Continue home long-acting insulin Sliding scale Glycemic pharmacy consult Close monitor Hypomagnesia Replace Follow labs Hyperlipidemia On statin CKD stage III Baseline creatinine 1.6 Creatinine is 1.5 today will follow labs History of paroxysmal atrial fibrillation On metoprolol and Coumadin INR 2.1 History of mechanical mitral valve replacement On Coumadin INR 2.1. Follow PT/INR DVT prophylaxis On Coumadin follow PT/INR Disposition Telemetry Full code History of Present Illness Chief Complaint: Shortness of breath and fever Primary Care Provider: Edith Alvarez MD 79-year-old female with past medical history significant for type 2 diabetes, CKD stage III, hyperlipidemia, history of hypokalemia, chronic respiratory failure with hypoxia on home oxygen 3 L 31/03, subclinical hypothyroidism, COPD, paroxysmal atrial fibrillation, chronic diastolic CHF, history of CAD s/p stents, morbid obesity, drug-induced constipation, GERD, degenerative disc disease, osteoporosis, chronic pain syndrome, depression, history of mitral valve replacement with mechanical valve, who lives at home with her son and family and ambulates mostly with a cane comes because of Shortness of breath. Patient was recently in the hospital with chest pain and echo was unremarkable and she was also treated for acute UTI and discharged on p.o. antibiotics to complete the course and advised to hold diuretics for 2 days for JORGE and follow- up with PCP comes because of shortness of breath today. Patient states she held her diuretics for last 4 days and since yesterday she is feeling short of breath. She also having fever with a lot of sweating. Has mild cough. No chest pain. No nausea. No abdominal pain. Normal bowel and bladder movements. No headache. No runny nose or sore throat. No earaches. Past medical history as mentioned above. Past surgical history. Cardiac stent placement. Appendectomy. . Cholecystectomy. Mitral valve replacement. Abdominal hysterectomy removal of tubes Social history. . Lives with her son and family. Quit smoking 2000. Smoked 1 pack a day for 44 years. Currently no alcohol use. No drug use. Family history. Sister had colon cancer. Diabetes. Brother has diabetes. Mother had diabetes. Hypertension. Father had hypertension and stroke. Daughter has A-fib and pacer. Allergies Allergy/AdvReac Type Severity Reaction Status Date / Time morphine Allergy Unknown vomiting Unverified 05/11/24 22:07 oxycodone Allergy Unknown vomiting Unverified 05/11/24 22:07 adhesive AdvReac Unknown Unknown Verified 05/11/24 22:07 adhesive tape AdvReac Unknown Unknown Verified 05/11/24 22:07 codeine AdvReac Unknown Unknown Verified 05/11/24 22:07 propoxyphene AdvReac Unknown Unknown Verified 05/11/24 22:07 [From Ramila-N] aspirin AdvReac Gastrointestinal Verified 05/11/24 22:07 Upset Home Medications Medication Instructions Recorded Confirmed Type albuterol sulfate 2.5 mg/3 mL 2.5 mg inhalation QID PRN 05/23/24 05/23/24 History (0.083 %) solution for nebulization Shortness Of Breath Or Wheezing albuterol sulfate 90 mcg/actuation 2 puff inhalation Q4H PRN 05/23/24 05/23/24 History aerosol inhaler (Ventolin HFA) Shortness Of Breath Or Wheezing atorvastatin 40 mg tablet 40 mg PO DAILY 05/23/24 05/23/24 History clopidogrel 75 mg tablet 75 mg PO DAILY 05/23/24 05/23/24 History diltiazem HCl 120 mg 120 mg PO DAILY 05/23/24 05/23/24 History capsule,extended release 24 hr ezetimibe 10 mg tablet 10 mg PO DAILY 05/23/24 05/23/24 History fluoxetine 20 mg capsule 20 mg PO DAILY 05/23/24 05/23/24 History fluticasone fur. 100 mcg-umeclid 1 inh inhalation DAILY 05/23/24 05/23/24 History 62.5 mcg-vilant 25 mcg inhalat.powder (Trelegy Ellipta) furosemide 40 mg tablet 80 mg PO DAILY 05/23/24 05/23/24 History insulin aspart U-100 100 unit/mL 10 unit subcut UD 05/23/24 05/23/24 History (3 mL) subcutaneous pen (Novolog FlexPen U-100 Insulin aspart) insulin degludec 100 unit/mL (3 40 unit subcut HS 05/23/24 05/23/24 History mL) subcutaneous pen (Tresiba FlexTouch U-100 insulin) metoprolol succinate 50 mg 50 mg PO DAILY 05/23/24 05/23/24 History tablet,extended release 24 hr omeprazole 20 mg capsule,delayed 20 mg PO DAILY 05/23/24 05/23/24 History release spironolactone 25 mg tablet 25 mg PO DAILY 05/23/24 05/23/24 History trazodone 50 mg tablet 50 mg PO HS 05/23/24 05/23/24 History warfarin 2.5 mg tablet 2.5 mg PO UD 05/23/24 05/23/24 History Past Med/Surg History Problem List (Updated 05/23/24 @ 04:15 by Bobby Orellana MD) Acute on chronic diastolic (congestive) heart failure CHF exacerbation (Acute) Chest pain SOB (shortness of breath) JORGE (acute kidney injury) (Acute) Acute hyperkalemia (Acute) Acute dyspnea (Acute) Diabetic nephropathy associated with type 2 diabetes mellitus (Acute) Pacemaker (Chronic) Labyrinthitis Medical History Nonproliferative diabetic retinopathy Anticoagulant long-term use CAD (coronary artery disease) Chronic diastolic congestive heart failure Dyslipidemia Hypertension Diabetes mellitus Atrial fibrillation Chronic renal failure, stage 3 (moderate) Skin cancer Presence of arterial stent Surgical History H/O mitral valve replacement Previous back surgery H/O: section History of cholecystectomy Hx of CABG H/O: hysterectomy Family History Mother Hypertension Hyperlipemia Diabetes Stroke Father Stroke Social History Smoking Status: Never smoker Tobacco Type: Cigarettes Second Hand Exposure: No; Do You Dip or Chew Tobacco: No; Tobacco Cessation Education Requested by Patient: No Hx Alcohol Use: No Hx Substance Use: No Preferred Language: Estonian Communication Ability: Effective Prefitter Required: No Beliefs That Will Affect Care: None Current Living Situation: Family Current Living Situation Comment: lives with son Other Information That Helps Us Care for You: No Feels Safe at Home: Yes Safety Concerns: Feels Safe At This Time Assistive Devices: Cane, Denture - Upper, Denture - Lower, Scooter/Electric Scooter, Walker and Wheelchair Review of Systems Review of Systems: All systems reviewed & are unremarkable except as noted in HPI & below Physical Exam Physical Exam: General- Not in distress Head- atraumatic Eyes- PERRL. ENT- oropharynx clear Neck- supple, no JVD. Lungs- clear to auscultation bibasilar crackles present, no wheezing Heart- regular rate and rhythm; no murmur, no gallop. Abdomen- normal bowel sounds, soft, nontender, no distension Extremities- b/l lower extremity edema present no erythema seen Neuro- alert, oriented PERRL, no facial palsy; no dysarthria; moves extremities Results & Data Results & Data Vital Signs (Past 12 Hours) Vital Signs Temp Pulse Pulse Resp BP BP Pulse Ox 05/23/24 03:42 77 30 H 127/64 97 05/23/24 02:46 05/23/24 02:45 05/23/24 02:30 82 31 H 97 05/23/24 02:24 85 29 H 97 05/23/24 02:12 85 29 H 97 05/23/24 01:30 84 28 H 97 05/23/24 01:24 85 38 H 96 05/23/24 01:00 95 H 32 H 96 05/23/24 00:57 87 36 H 98 05/23/24 00:42 87 36 H 95 05/23/24 00:39 91 H 31 H 96 05/23/24 00:21 86 36 H 96 05/22/24 23:51 92 H 49 H 96 05/22/24 23:50 05/22/24 23:48 90 16 97 05/22/24 23:46 132/73 05/22/24 23:46 132/73 05/22/24 23:46 132/73 05/22/24 23:46 132/73 05/22/24 23:46 132/73 05/22/24 23:45 69 05/22/24 23:29 37.9 C H 94 H 21 95 O2 Del Method O2 Flow Rate 05/23/24 03:42 Nasal Cannula 4 05/23/24 02:46 Nasal Cannula 05/23/24 02:45 Room Air 05/23/24 02:30 05/23/24 02:24 05/23/24 02:12 05/23/24 01:30 05/23/24 01:24 Nasal Cannula 4 05/23/24 01:00 05/23/24 00:57 05/23/24 00:42 05/23/24 00:39 05/23/24 00:21 05/22/24 23:51 05/22/24 23:50 Nasal Cannula 05/22/24 23:48 05/22/24 23:46 05/22/24 23:46 05/22/24 23:46 05/22/24 23:46 05/22/24 23:46 05/22/24 23:45 05/22/24 23:29 Nasal Cannula 4 Diagnostic Findings Laboratory Results WBC 10.55 K/ul (4.8-10.8) 05/22/24 23:50 RBC 3.53 M/uL (4.20-5.40) L 05/22/24 23:50 Hgb 10.1 g/dl (12.0-16.0) L 05/22/24 23:50 Hct 31.6 % (37.0-47.0) L 05/22/24 23:50 MCV 89.5 fL (80.0-100.0) 05/22/24 23:50 MCH 28.6 pg (25.0-34.0) 05/22/24 23:50 MCHC 32.0 g/dL (32.0-36.0) 05/22/24 23:50 RDW Std Deviation 47.7 fL (36.4-46.3) H 05/22/24 23:50 RDW Coeff of Asya 14.6 % (11.5-14.5) H 05/22/24 23:50 Plt Count 282 K/uL (130-400) 05/22/24 23:50 MPV 10.0 fL (9.4-12.4) 05/22/24 23:50 Immature Gran % (Auto) 0.4 % 05/22/24 23:50 Neut % (Auto) 85.4 % 05/22/24 23:50 Lymph % (Auto) 6.4 % 05/22/24 23:50 [place] % (Auto) 7.3 % 05/22/24 23:50 Eos % (Auto) 0.1 % 05/22/24 23:50 Baso % (Auto) 0.4 % 05/22/24 23:50 Neut # (Auto) 9.02 K/uL (1.40-6.50) H 05/22/24 23:50 Lymph # (Auto) 0.67 K/uL (1.20-3.40) L 05/22/24 23:50 [place] # (Auto) 0.77 K/uL (0.11-0.59) H 05/22/24 23:50 Eos # (Auto) 0.01 K/uL (0.00-0.50) 05/22/24 23:50 Baso # (Auto) 0.04 K/uL (0.00-0.20) 05/22/24 23:50 Immature Gran # (Auto) 0.04 K/uL (0.01-0.20) 05/22/24 23:50 PT 21.4 Seconds (9.0-12.0) H 05/22/24 23:50 INR 2.1 (0.9-1.1) H 05/22/24 23:50 APTT 37 Seconds (21-31) H 05/22/24 23:50 PTT Ratio 1.4 05/22/24 23:50 VBG pH 7.46 (7.36-7.41) H 05/22/24 23:50 VBG pCO2 41 mmHg (38-50) 05/22/24 23:50 VBG pO2 99 mmHg 05/22/24 23:50 VBG HCO3 29 mmol/L 05/22/24 23:50 VBG O2 Saturation 98.7 % 05/22/24 23:50 VBG Base Excess 4.9 mEq/L 05/22/24 23:50 Sodium 133 mmol/L (136-145) L 05/22/24 23:50 Potassium 5.1 mmol/L (3.5-5.1) 05/22/24 23:50 Chloride 97 mmol/L (98-107) L 05/22/24 23:50 Carbon Dioxide 28 mmol/L (21-32) 05/22/24 23:50 Anion Gap 8 (3-11) 05/22/24 23:50 BUN 29 mg/dl (6-23) H 05/22/24 23:50 Creatinine 1.56 mg/dl (0.6-1.2) H 05/22/24 23:50 Est Cr Clr Drug Dosing 32.5 ml/min 05/22/24 23:50 Est GFR ( Amer) 35.7 ml/min 05/22/24 23:50 Est GFR (Non-Af Amer) 30.8 ml/min 05/22/24 23:50 BUN/Creatinine Ratio 18.6 (10-20) 05/22/24 23:50 Glucose 425 mg/dl (70-99(Fasting)) H* 05/22/24 23:50 Lactate 1.5 mmol/L (0.4-2.0) 05/22/24 23:50 Calcium 8.9 mg/dl (8.6-10.3) 05/22/24 23:50 Magnesium 1.6 mg/dl (1.7-2.4) L 05/22/24 23:50 Total Bilirubin 0.6 mg/dl (0.2-1.0) 05/22/24 23:50 Direct Bilirubin 0.2 mg/dl (0-0.2) 05/22/24 23:50 AST 15 U/L (13-39) 05/22/24 23:50 ALT 12 U/L (7-52) 05/22/24 23:50 Alkaline Phosphatase 69 U/L (34-104) 05/22/24 23:50 Troponin I High Sens 17.1 pg/ml (0-14) H 05/22/24 23:50 B-Natriuretic Peptide 270 pg/ml (0-100) H 05/22/24 23:50 Total Protein 7.3 gm/dl (6.0-8.3) 05/22/24 23:50 Albumin 3.5 gm/dl (3.4-5.0) 05/22/24 23:50 Procalcitonin 0.06 ng/ml (0-0.5) 05/22/24 23:50 Urine Color Yellow 05/23/24 00:13 Urine Appearance Clear (Clear) 05/23/24 00:13 Urine pH 5.5 (4.5-7.5) 05/23/24 00:13 Ur Specific [place] 1.016 (1.000-1.030) 05/23/24 00:13 Urine Protein 1+ (Negative) H 05/23/24 00:13 Urine Glucose (UA) 2+ (Negative) H 05/23/24 00:13 Urine Ketones Negative (Negative) 05/23/24 00:13 Urine Blood Negative (Negative) 05/23/24 00:13 Urine Nitrite Negative (Negative) 05/23/24 00:13 Urine Bilirubin Negative (Negative) 05/23/24 00:13 Urine Urobilinogen Negative (Negative) 05/23/24 00:13 Ur Leukocyte Esterase Trace (Negative) H 05/23/24 00:13 Urine WBC (Auto) 0-5 /hpf (0-5) 05/23/24 00:13 Urine RBC (Auto) 0-2 /hpf (0-2) 05/23/24 00:13 U Hyaline Cast (Auto) 0-2 /lpf (0-2) 05/23/24 00:13 U Epithel Cells (Auto) 0-2 /hpf (0-2) 05/23/24 00:13 Urine Bacteria (Auto) None Seen (None Seen) 05/23/24 00:13 Adenovirus (PCR) Not Detected (NotDetected) 05/22/24 23:50 B. pertussis DNA (PCR) Not Detected (NotDetected) 05/22/24 23:50 B.parapertussis DNA PCR Not Detected (NotDetected) 05/22/24 23:50 C. pneumoniae DNA (PCR) Not Detected (NotDetected) 05/22/24 23:50 Coronavirus OC43 (PCR) Not Detected (NotDetected) 05/22/24 23:50 Coronavirus HKU1 (PCR) Not Detected (NotDetected) 05/22/24 23:50 Coronavirus 229E (PCR) Not Detected (NotDetected) 05/22/24 23:50 SARS-CoV-2 (PCR) Not Detected (NotDetected) 05/22/24 23:50 Coronavirus NL63 (PCR) Not Detected (NotDetected) 05/22/24 23:50 Human Metapneumovir PCR Not Detected (NotDetected) 05/22/24 23:50 Influenza Type A (PCR) Not Detected (NotDetected) 05/22/24 23:50 Influenza Type B (PCR) Not Detected (NotDetected) 05/22/24 23:50 M. pneumoniae (PCR) Not Detected (NotDetected) 05/22/24 23:50 Parainfluenza 1 (PCR) Not Detected (NotDetected) 05/22/24 23:50 Parainfluenza 2 (PCR) Not Detected (NotDetected) 05/22/24 23:50 Parainfluenza 3 (PCR) Not Detected (NotDetected) 05/22/24 23:50 Parainfluenza 4 (PCR) Not Detected (NotDetected) 05/22/24 23:50 RSV (PCR) Not Detected (NotDetected) 05/22/24 23:50 Entero/Rhino (PCR) Not Detected (NotDetected) 05/22/24 23:50 ECG Additional Comments: ECG. A-fib with frequent ventricular paced complexes at rate of 92. ST and T wave abnormalities in anterolateral leads Code Status & VTE Plan VTE Prophylaxis Plan VTE Prophylaxis will be ordered: Yes
[2024-05-23] MEDS ORDERED: ALBUTEROL HFA 8 GM INHALER INH PRN (04:22)
[2024-05-23] MEDS ORDERED: GLUCOSE 10 TAB/TUBE PO PRN (04:22)
[2024-05-23] MEDS ORDERED: GLUCAGON FOR INJ 1 MG VIAL SQ PRN (04:22)
[2024-05-23] MEDS ORDERED: GLUCOSE 40% GEL 15 GM TUBE PO PRN (04:22)
[2024-05-23] MEDS ORDERED: NITROGLYCERIN SL 0.4 MG/TAB TAB SL PRN (04:22)
[2024-05-23] MEDS ORDERED: ONDANSETRON INJ 2 MG/ML 2 ML VIAL IV PRN (04:22)
[2024-05-23] MEDS ORDERED: DEXTROSE 50% 50 ML SYRINGE IV PRN (04:22)
[2024-05-23] MEDS ORDERED: CARBOHYDRATES FOR HYPOGLYCEMIA PO PRN (04:22)
[2024-05-23] MEDS ORDERED: ALBUTEROL 0.083% NEBU SOLN 3 ML VIAL INH PRN (04:22)
[2024-05-23] MEDS: LANTUS PER UNIT CHARGE SQ SCH (06:47)
[2024-05-23] MEDS ORDERED: PHARMACY GLYCEMIC MGMT CONSULT PRN (07:49)
[2024-05-23 08:19] LABS: Basophils # (auto) 0.04 K/uL (0.00-0.20); Basophils % (auto) 0.4 %; Eosinophils # (auto) 0.03 K/uL (0.00-0.50); Eosinophils % (auto) 0.3 %; Hematocrit (blood only) 31.9 % (37.0-47.0); Immature Granulocytes # (auto) 0.04 K/uL (0.01-0.20); Immature Granulocytes % (auto) 0.4 %; Lymphocytes # (auto) 1.22 K/uL (1.20-3.40); Lymphocytes % (auto) 11.8 %; Mean Corpuscular Hemoglobin 28.6 pg (25.0-34.0); Mean Corpuscular Hgb Conc 31.3 g/dL (32.0-36.0); Mean Corpuscular Volume 91.1 fL (80.0-100.0); Mean Platelet Volume 9.7 fL (9.4-12.4); Monocytes # (auto) 0.84 K/uL (0.11-0.59); Monocytes % (auto) 8.1 %; Neutrophils # (auto) 8.16 K/uL (1.40-6.50); Platelet Count 275 K/uL (130-400); RDW Coefficient of Variation 14.7 % (11.5-14.5); RDW Standard Deviation 49.2 fL (36.4-46.3); White Blood Count 10.33 K/ul (4.8-10.8)
--- NOTE | 2024-05-23 08:33 | XRay Report ---
XR chest 1V portable CLINICAL HISTORY: Sepsis TECHNIQUE: Single frontal radiograph of the chest was obtained. Comparison: Comparison is made to chest radiograph 05/11/2024 FINDINGS: Lines and tubes are stable. The cardiomediastinal silhouette is stable. Prominence and cephalization of the vasculature is seen. Bilateral midlung airspace opacities are seen. Possible small left pleura l effusion. IMPRESSION: 1. Bilateral mid lung airspace opacities. This may represent atelectasis, pneumonia, and/or aspirati on. 2. Cardiomegaly and mild pulmonary edema. 3. Possible small left pleural effusion. ACT 112: Negative or not required by law. Electronically signed by: Misbah Dumont M.D. 05/23/2024 8:31 AM
[2024-05-23 08:36] LABS: BUN Creatinine Ratio 18.2 (10-20); Est GFR (African American) 36.3 ml/min; Est GFR (Non-African American) 31.3 ml/min; Potassium 4.3 mmol/L (3.5-5.1)
[2024-05-23 08:42] LABS: Troponin I High Sensitivity 12.7 pg/ml (0-14)
--- NOTE | 2024-05-23 08:46 | CT Scan Report ---
Exam(s): CT CHEST Without Contrast EXAM: CT Chest Without Intravenous Contrast CLINICAL HISTORY: Reason for exam: sob, fever, chf. TECHNIQUE: Axial computed tomography images of the chest without intravenous contrast. Automated exposure control was utilized for the study. A dose lowering technique was utilized adhering to the principles of ALARA. COMPARISON: No relevant prior studies available. FINDINGS: Lungs: There is patchy consolidation seen in the left lower lobe and anterior segment of the right upper lobe. No mass. Pleural space: Small left pleural effusion. No pneumothorax. Heart: Mild cardiomegaly. Severe coronary vascular calcifications are seen. Mitral annular calcifications are seen. No significant pericardial effusion. Bones/joints: L1 which he will body compression fracture deformity seen with 60% loss of vertebral body height. No acute fracture. No dislocation. Lymph nodes: Unremarkable. No enlarged lymph nodes. IMPRESSION: 1. Small left pleural effusion 2. Right upper lobe and left lower lobe pneumonia. Electronically signed by: Parrish Crews MD 05/23/24 08:45 AM
[2024-05-23 09:02] LABS: INR 1.9 (0.9-1.1); Prothrombin Time 19.7 Seconds (9.0-12.0)
[2024-05-23] MEDS: INSULIN HUMAN REGULAR PER UNIT 10 UNITS in SYRINGE 9.9 ML IV ONE (09:05)
--- NOTE | 2024-05-23 09:26 | Cardiology Consultation ---
Date of Consultation May 23, 2024 Assessment & Plan (1) Acute on chronic diastolic (congestive) heart failure: (2) Pneumonia: (3) S/P MVR (mitral valve replacement): Plan 79 year old female with past medical history of rheumatic valvular disease s/p mechanical MVR in 2000, CAD s/p stents, atrial fibrillation, HTN, HLD, DM 2, hx CVA, CKD, chronic respiratory failure on 3L, who presents with worsening shortness of breath and edema. Diuretics held for 4 days after recent hospital admission due to JORGE. - on exam today continues to have shortness of breath, edema, chills - Chest CT with small left pleural effusion, right upper lobe and left lower lobe pneumonia - BNP 270, mildly hypervolemic on exam - symptoms consistent with acute on chronic heart failure in setting of acute pneumonia - antibiotics per primary - continue furosemide IV 40 BID, spironolactone 25 mg daily - strict I and Os, daily weights, 2 L fluid restriction and 2 gm sodium restriction - monitor electrolytes and kidney function - monitor on telemetry Case discussed with supervising physician, further recommendations per Dr. Garcia. I spent a total of 30 minutes on the date of service in preparation, delivery, and documentation of the care provided to this patient excluding any time spent in the performance of separately billed services. This visit was a split-shared visit with the substantial portion of the decision making performed by the supervising service station manager/billing provider. Supervising Physician Co-Signing Physician Notes Patient was seen and personally examined, chart, medications telemetry reviewed. Full assessment and plan as outlined by advanced provider. Care management discussed and personally endorsed 79-year-old female with complex cardiac history including prior mitral valve replacement with mechanical prosthesis in 2000 underlying ischemic heart disease and atrial fibrillation. Recent hospitalization 05/10/2020 for discharge with transient hold on diuretics. Presents now with evidence of volume overload as well as possible superimposed pneumonia. Patient complaining of chills and rigors at time of examination Plan as outlined above. Would check blood cultures given indwelling mechanical valve Keep INR therapeutic Consider discontinuation of diltiazem and upward titration of metoprolol succinate given rehospitalization with congestive heart failure History of Present Illness Reason for Consultation: Acute diastolic CHF Requesting Physician: Hospitalist Attending Physician: Olive Ely MD History of Present Illness 79 year old female with past medical history of rheumatic valvular disease s/p mechanical MVR in 2000, CAD s/p stents, atrial fibrillation, HTN, HLD, DM 2, hx CVA, CKD, chronic respiratory failure on 3L, who presents with worsening shortness of breath and edema. Recent hospitalization 05/11-05/15 with acute UTI, furosemide and spironolactone held at discharge due to JORGE on CKD. She states she was instructed to hold for 4 days then restart. Once she was home, she had progressively worsening shortness of breath and edema. Has been having fevers, chills, cough. On arrival, BNP minimally elevated, febrile, respiratory panel ne gative. Chest CT with small left pleural effusion and pneumonia. Started on IV diuretics. Today on exam, states she is feeling a little better, but continues to have shortness of breath, chills. Denies chest pain, palpitations. Currently on 3L O2, which is her baseline. Has had no appetite at home. Follows with [facility] outpatient cardiology clinic. Allergies Allergy/AdvReac Type Severity Reaction Status Date / Time morphine Allergy Unknown vomiting Unverified 05/11/24 22:07 oxycodone Allergy Unknown vomiting Unverified 05/11/24 22:07 adhesive AdvReac Unknown Unknown Verified 05/11/24 22:07 adhesive tape AdvReac Unknown Unknown Verified 05/11/24 22:07 codeine AdvReac Unknown Unknown Verified 05/11/24 22:07 propoxyphene AdvReac Unknown Unknown Verified 05/11/24 22:07 [From Ramila-N] aspirin AdvReac Gastrointestinal Verified 05/11/24 22:07 Upset Home Medications Medication Instructions Recorded Confirmed Type albuterol sulfate 2.5 mg/3 mL 2.5 mg inhalation QID PRN 05/23/24 05/23/24 History (0.083 %) solution for nebulization Shortness Of Breath Or Wheezing albuterol sulfate 90 mcg/actuation 2 puff inhalation Q4H PRN 05/23/24 05/23/24 History aerosol inhaler (Ventolin HFA) Shortness Of Breath Or Wheezing atorvastatin 40 mg tablet 40 mg PO DAILY 05/23/24 05/23/24 History clopidogrel 75 mg tablet 75 mg PO DAILY 05/23/24 05/23/24 History diltiazem HCl 120 mg 120 mg PO DAILY 05/23/24 05/23/24 History capsule,extended release 24 hr ezetimibe 10 mg tablet 10 mg PO DAILY 05/23/24 05/23/24 History fluoxetine 20 mg capsule 20 mg PO DAILY 05/23/24 05/23/24 History fluticasone fur. 100 mcg-umeclid 1 inh inhalation DAILY 05/23/24 05/23/24 History 62.5 mcg-vilant 25 mcg inhalat.powder (Trelegy Ellipta) furosemide 40 mg tablet 80 mg PO DAILY 05/23/24 05/23/24 History insulin aspart U-100 100 unit/mL 10 unit subcut UD 05/23/24 05/23/24 History (3 mL) subcutaneous pen (Novolog FlexPen U-100 Insulin aspart) insulin degludec 100 unit/mL (3 40 unit subcut HS 05/23/24 05/23/24 History mL) subcutaneous pen (Tresiba FlexTouch U-100 insulin) metoprolol succinate 50 mg 50 mg PO DAILY 05/23/24 05/23/24 History tablet,extended release 24 hr omeprazole 20 mg capsule,delayed 20 mg PO DAILY 05/23/24 05/23/24 History release spironolactone 25 mg tablet 25 mg PO DAILY 05/23/24 05/23/24 History trazodone 50 mg tablet 50 mg PO HS 05/23/24 05/23/24 History warfarin 2.5 mg tablet 2.5 mg PO UD 05/23/24 05/23/24 History Patient History Medical History Nonproliferative diabetic retinopathy Anticoagulant long-term use CAD (coronary artery disease) Chronic diastolic congestive heart failure Dyslipidemia Hypertension Diabetes mellitus Atrial fibrillation Chronic renal failure, stage 3 (moderate) Skin cancer Presence of arterial stent Surgical History H/O mitral valve replacement Previous back surgery H/O: section History of cholecystectomy Hx of CABG H/O: hysterectomy Family History Mother Hypertension Hyperlipemia Diabetes Stroke Father Stroke Social History Smoking Status: Never smoker Tobacco Type: Cigarettes Second Hand Exposure: No; Do You Dip or Chew Tobacco: No; Tobacco Cessation Education Requested by Patient: No Hx Alcohol Use: No Hx Substance Use: No Preferred Language: Congolese Communication Ability: Effective Tobacco Prizer Required: No Beliefs That Will Affect Care: None Current Living Situation: Family Current Living Situation Comment: lives with son Other Information That Helps Us Care for You: No Feels Safe at Home: Yes Safety Concerns: Feels Safe At This Time Assistive Devices: Cane, Denture - Upper, Denture - Lower, Scooter/Electric Scooter, Walker and Wheelchair Review of Systems Review of Systems: CONSTITUTIONAL: No change in weight, No weakness, No fatigue and + fevers, + sweats or chills. PULMONARY: + cough, No sputum, or hemoptysis, No wheezing, No shortness of breath and No recent change in breathing. CARDIOVASCULAR: No chest pain, + dyspnea on exertion, + edema, No palpitations and No syncope. GASTROINTESTINAL: No abdominal pain, No change in bowel habits, No significant heartburn, No nausea, No vomiting, No diarrhea, No constipation, No blood in stools or black tarry stools. No dysphagia. HEMATOLOGIC: No abnormal bleeding and No bruising. NEUROLOGICAL: Normal balance, No headaches and No weakness. Physical Exam Physical Exam: General: No acute distress. A+Ox3. HEENT: Normocephalic. Atraumatic. PERRL. EOMI. Conjunctiva and sclera clear. NECK: No carotid bruits. No JVD. Carotid upstrokes are brisk. Heart: Tachycardic. S1 and S2 noted. + mechanical click murmur. No rubs or gallops. PMI non displaced. Lungs: +wheezes and diminished breath sounds throughout. No rhonchi. No rales. Abdomen: Normal bowel sounds. Soft. Nontender. No masses or organomegaly. No abdominal bruits. Extremities: +1 bilateral LE edema. No clubbing or cyanosis. Pulses: radial=2/4, posterior tibial=2/4, dorsalis pedis = 2/4. NEURO: No focal deficits. PSYCH: Appropriate affect and insight. Results & Data Vital Signs (Past 12 Hours) Vital Signs Temp Pulse Pulse Resp BP BP Pulse Ox 05/23/24 07:12 81 05/23/24 06:00 81 30 H 103/40 L 100 05/23/24 05:27 05/23/24 04:41 05/23/24 04:41 36.8 C 82 28 H 127/66 97 05/23/24 03:42 77 30 H 127/64 97 05/23/24 02:46 05/23/24 02:45 05/23/24 02:30 82 31 H 97 05/23/24 02:24 85 29 H 97 05/23/24 02:12 85 29 H 97 05/23/24 01:30 84 28 H 97 05/23/24 01:24 85 38 H 96 05/23/24 01:00 95 H 32 H 96 05/23/24 00:57 87 36 H 98 05/23/24 00:42 87 36 H 95 05/23/24 00:39 91 H 31 H 96 05/23/24 00:21 86 36 H 96 05/22/24 23:51 92 H 49 H 96 05/22/24 23:50 05/22/24 23:48 90 16 97 05/22/24 23:46 132/73 05/22/24 23:46 132/73 05/22/24 23:46 132/73 05/22/24 23:46 132/73 05/22/24 23:46 132/73 05/22/24 23:45 69 05/22/24 23:29 37.9 C H 94 H 21 95 Pulse Ox O2 Del Method O2 Del Method O2 Flow Rate O2 Flow Rate 05/23/24 07:12 05/23/24 06:00 Nasal Cannula 3 05/23/24 05:27 96 Room Air 3 05/23/24 04:41 Nasal Cannula 3 05/23/24 04:41 Nasal Cannula 3 05/23/24 03:42 Nasal Cannula 4 05/23/24 02:46 Nasal Cannula 05/23/24 02:45 Room Air 05/23/24 02:30 05/23/24 02:24 05/23/24 02:12 05/23/24 01:30 05/23/24 01:24 Nasal Cannula 4 05/23/24 01:00 05/23/24 00:57 05/23/24 00:42 05/23/24 00:39 05/23/24 00:21 05/22/24 23:51 05/22/24 23:50 Nasal Cannula 05/22/24 23:48 05/22/24 23:46 05/22/24 23:46 05/22/24 23:46 05/22/24 23:46 05/22/24 23:46 05/22/24 23:45 05/22/24 23:29 Nasal Cannula 4 Laboratory Results Cardiac Enzymes 05/22/24 05/23/24 Range/Units 23:50 07:55 AST 15 (13-39) U/L Troponin I High Sens 17.1 H 12.7 D (0-14) pg/ml B-Natriuretic Peptide 270 H (0-100) pg/ml Coagulation 05/22/24 05/23/24 Range/Units 23:50 07:55 PT 21.4 H 19.7 H (9.0-12.0) Seconds APTT 37 H (21-31) Seconds B-Natriuretic Peptide 270 H (0-100) pg/ml CBC 05/22/24 05/23/24 Range/Units 23:50 07:55 WBC 10.55 10.33 (4.8-10.8) K/ul RBC 3.53 L 3.50 L (4.20-5.40) M/uL Hgb 10.1 L 10.0 L (12.0-16.0) g/dl Hct 31.6 L 31.9 L (37.0-47.0) % Plt Count 282 275 (130-400) K/uL Neut # (Auto) 9.02 H 8.16 H (1.40-6.50) K/uL Lymph # (Auto) 0.67 L 1.22 (1.20-3.40) K/uL [place] # (Auto) 0.77 H 0.84 H (0.11-0.59) K/uL Eos # (Auto) 0.01 0.03 (0.00-0.50) K/uL Baso # (Auto) 0.04 0.04 (0.00-0.20) K/uL Comprehensive Metabolic Panel 05/22/24 05/23/24 Range/Units 23:50 07:55 Sodium 133 L 136 (136-145) mmol/L Potassium 5.1 4.3 (3.5-5.1) mmol/L Chloride 97 L 97 L (98-107) mmol/L Carbon Dioxide 28 32 (21-32) mmol/L BUN 29 H 28 H (6-23) mg/dl Creatinine 1.56 H 1.54 H (0.6-1.2) mg/dl Glucose 425 H* 291 H (70-99(Fasting)) mg/dl Calcium 8.9 9.0 (8.6-10.3) mg/dl Direct Bilirubin 0.2 (0-0.2) mg/dl AST 15 (13-39) U/L ALT 12 (7-52) U/L Alkaline Phosphatase 69 (34-104) U/L Total Protein 7.3 (6.0-8.3) gm/dl Albumin 3.5 (3.4-5.0) gm/dl Intake and Output 05/22/24 05/23/24 05/23/24 22:59 06:59 14:59 Intake Total 100 / 100 Balance 100 / 100 Intake: IV 100 / 100 Magnesium Sulfate / D5w 1 gm In 100 / 100 100 ml @ 50 mls/hr IV ONE ONE Rx#:[id number] Oral 0 / 0 Other: Weight 98.3 kg Weight Measurement Method Built in [facility] Diagnostic Findings Echo 05/12/2024 shows normal LVEF, moderate aortic valve sclerosis without stenosis, normal prosthetic mitral valve gradients. EKG 05/22/2024 shows A-fib with frequent V paced complexes, 92 bpm (2) Pneumonia Laterality: bilateral Lung location: unspecified part of lung Pneumonia type: due to unspecified organism Qualified Code(s): J18.9 - Pneumonia, unspecified organism
[2024-05-23] MEDS: FLUTICASONE FUROATE 100MCG 14 PUFFS/INHALER INH SCH (09:28)
[2024-05-23] MEDS: PANTOprazole 40 MG TAB PO SCH (09:28)
[2024-05-23] MEDS: UMECLIDINIUM/VILANTEROL 62.5/25MCG 7 PUFFS/INHALER INH SCH (09:28)
[2024-05-23] MEDS: METOPROLOL SUCC 50MG EXT REL TAB PO SCH (09:29)
[2024-05-23] MEDS: FUROSEMIDE 40 MG/4 ML VIAL IV SCH (09:29)
[2024-05-23] MEDS: SPIRONOLACTONE 25 MG TAB PO SCH (09:29)
[2024-05-23] MEDS: CLOPIDOGREL BISULFATE 75 MG TAB PO SCH (09:29)
[2024-05-23] MEDS: ATORVASTATIN 40 MG TAB PO SCH (09:29)
[2024-05-23] MEDS: dilTIAZem HCL 120 MG CAPCR PO SCH (09:29)
[2024-05-23] MEDS: EZETIMIBE 10 MG TAB PO SCH (09:29)
[2024-05-23] MEDS: FLUoxetine HCL 20 MG CAP PO SCH (09:29)
[2024-05-23] MEDS: INSULIN ASPART PER UNIT CHARGE SC SCH (10:03)
[2024-05-23] MEDS: cefTRIAXone SODIUM 2,000 MG in DEXTROSE 5 % MINI-B 50 ML IV SCH (11:31)
--- NOTE | 2024-05-23 12:05 | Communication Note ---
Date of Service: May 23, 2024 Evaluated at bedside in ED Reports subjective improvement in symptoms since admission but noting exhaustion at this time Denies SOB or chest pain, denies any further urinary symptoms Reports dyspnea, otherwise denies feeling febrile or any cough/rhinorrhea etc EXAM scatter crackles, diminished however 2/2 effort on 3L, irregular +Click MsNathan Moreno is an 79 year-old female with multiple comorbidities including mitral valve replacement with mechanical prosthesis in 2000 underlying ischemic heart disease and atrial fibrillation who is admitted for acute on chronic heart failure with preserved EF. Imaging revealed right upper and left lower lobe pneumonia/consolidations, with left pleural effusion Temp elevated to 37.9 overnight. Procal normal, however, given recent admission will cover empirically for bacterial pneumonia. #Abnormal CT c/f pneumonia #SOB #Chronic respiratory failure, 3L NC #COPD Recent hospitalization 05/10/2024, pseudomonas risk factor Procal 0.08, however, given fever and imaging findings will cover empirically Discharged with transient hold on diuretics. Consolidations on CT c/f pneumonia -Start Azithromycin and Cefepime IV -sputum cultures if able -Follow blood cultures 05/22 -Continue home inhalers and nebs prn Monitor O2 saturations #Acute on chronic heart failure with preserved EF -pleural effusion noted on imaging with slight edema -diuretics held for 4 days, BNP 2240 Cardiology on consult - continue furosemide IV 40 BID, spironolactone 25 mg daily - strict I and Os, daily weights, 2 L fluid restriction and 2 gm sodium restriction - monitor electrolytes and kidney function qam - monitor on telemetry #Chronic atrial fibrillation #SSS s/p pacemaker #Mitral valve replacement with mechanical prosthesis in 2000 continue warfarin Trend INR iso antibiotics -Continue Diltiazem, Toprol xl -Cards may consider d/c diltiazem given CHF presentation, will follow recommendations rest of plan per HP
[2024-05-23] MEDS: AZITHROMYCIN 500 MG in DEXTROSE 5% 250 ML IV SCH (12:11)
[2024-05-23] MEDS: CEFEPIME 2,000 MG in SYRINGE 0 ML IV SCH (13:04)
--- NOTE | 2024-05-23 13:17 | Pharmacy Report ---
Pharmacy Glycemic Short Note 2 - Date of Service May 23, 2024 - Glycemic Short BSG Results (Last 24 hours): 05/22/24 05/23/24 05/23/24 23:50 05:03 07:55 Glucose 425 H* 291 H POC Glucose 336 H* 05/23/24 05/23/24 09:03 11:27 Glucose POC Glucose 271 H 190 H OUTPATIENT ANTIDIABETIC REGIMEN: * Tresiba 40 units SC HS * Novolog 10 unit SC BIDM HbA1c: 8.8% (05/12/24) ASSESSMENT: * NATIVIDAD is an 79 year old female admitted w/ acute CHF exacerbation/pneumonia * Blood sugar in ED > 400 mg/dL, given 10 units of IV regular insulin and 40 units of SC basal, improvement noted at lunchtime (blood sugar of 190 mg/dL) * On cefepime and azithromycin (mixed in dextrose) * Diet ordered PLAN FOR INPATIENT GLYCEMIC CONTROL: * Basal insulin * Lantus 40 units SQ SC qAM * Bolus insulin * NovoLog per scale ACHS or Q6hrs while NPO * Goal Range: Low 110 mg/dL - High 140 mg/dL * Correction Factor: 25 mg/dL/unit * Nutritional / Prandial insulin per carb ratio of 1 unit per 8 grams CHO consumed
[2024-05-23] MEDS: WARFARIN SOD 5 MG TAB PO SCH (17:06)
[2024-05-23] MEDS: traZODone HCL 50 MG TAB PO SCH (20:12)
[2024-05-23] MEDS: ACETAMINOPHEN 325 MG TAB PO PRN (20:24)
[2024-05-23] MEDS: NYSTATIN POWDER 15GM BTL EXT SCH (20:59)
[2024-05-24 06:17] LABS: Hematocrit (blood only) 28.9 % (37.0-47.0); Hemoglobin 9.5 g/dl (12.0-16.0); Mean Corpuscular Hgb Conc 32.9 g/dL (32.0-36.0); Mean Corpuscular Volume 88.1 fL (80.0-100.0); Mean Platelet Volume 9.6 fL (9.4-12.4); Platelet Count 280 K/uL (130-400); RDW Coefficient of Variation 14.5 % (11.5-14.5); RDW Standard Deviation 46.8 fL (36.4-46.3); Red Blood Count 3.28 M/uL (4.20-5.40); White Blood Count 11.67 K/ul (4.8-10.8)
[2024-05-24 06:40] LABS: INR 2.4 (0.9-1.1); Prothrombin Time 23.9 Seconds (9.0-12.0)
[2024-05-24 06:49] LABS: BUN Creatinine Ratio 18.4 (10-20); Creatinine Clr Calc Pharmacy 26.6 ml/min; Est GFR (African American) 29.1 ml/min; Est GFR (Non-African American) 25.1 ml/min; Magnesium 1.8 mg/dl (1.7-2.4); Phosphorus 3.6 mg/dl (2.5-4.9); Potassium 4.3 mmol/L (3.5-5.1)
[2024-05-24] MEDS: CEFEPIME 1,000 MG in SYRINGE 0 ML IV SCH (11:55)
--- NOTE | 2024-05-24 12:25 | Cardiology Progress Note ---
Date of Service May 24, 2024 Assessment & Plan (1) Acute on chronic diastolic (congestive) heart failure: (2) Pneumonia: (3) S/P MVR (mitral valve replacement): Plan 05/23/24: 79 year old female with past medical history of rheumatic valvular disease s/p mechanical MVR in 2000, CAD s/p stents, atrial fibrillation, HTN, HLD, DM 2, hx CVA, CKD, chronic respiratory failure on 3L, who presents with worsening shortness of breath and edema. Diuretics held for 4 days after recent hospital admission due to JORGE. - on exam today continues to have shortness of breath, edema, chills - Chest CT with small left pleural effusion, right upper lobe and left lower lobe pneumonia - BNP 270, mildly hypervolemic on exam - symptoms consistent with acute on chronic heart failure in setting of acute pneumonia - antibiotics per primary - continue furosemide IV 40 BID, spironolactone 25 mg daily - strict I and Os, daily weights, 2 L fluid restriction and 2 gm sodium restriction - monitor electrolytes and kidney function - monitor on telemetry 05/24/24: -Interval improvement in patient's respiratory status and volume status this morning after receiving 24+ hours of antibiotics and several doses of IV lasix. -Weight down 5 kg since admission -Creatinine trending upward from 1.5 to 1.8 this morning. -Hold PM dose of furosemide -continue spironolactone -Continue antibiotics for pneumonia. -Daily weight with standing scale. -Stop diltiazem given recurrent admission for CHF/edema and increase metoprolol to 50 mg BID. -Continue anticoagulation with Coumadin. INR goal 2.5 to 3.5 Given mechanical valve. INR 2.4 this morning. Case discussed with Dr. Madsen I spent a total of 40 minutes on the date of service in preparation, delivery, and documentation of the care provided to this patient, excluding any time spent in the performance of separately billed services. Kym Brady PA-C Department of Cardiology, [facility] This chart was completed in part utilizing Speech Voice Recognition Software. Grammatical errors, random word insertions, pronoun errors, and incomplete sentences are an occasional consequence of this system due to software limitations, ambient noise, and hardware issues. Any formal questions or concerns about the content, text, or information contained within the body of this dictation should be directly addressed to the provider for clarification. . Admission and Anticipated Discharge Date Admission Date: May 23, 2024 Supervising Physician Co-Signing Physician Notes Attending attestation: Case reviewed with the advanced practitioner. I have personally performed a history and physical examination on the patient. I have reviewed the advanced practitioner's documentation on the date of service referenced in note, and I agree with, and take responsibility for the plan of care. I spent a total of 20 minutes coordinating, documenting, and providing care for this patient excluding time spent in the performance of separately billed services or time spent by another provider. Jose Madsen, DO Subjective Patient resting in bed, feeling well. SOB/cough much improved from admission. She wears 3 L NC chronically. Oxygen status back to baseline. No chest pain. No orthopnea noted last night. Edema improved. Weight down. Review of Systems Review of Systems: All systems reviewed & are unremarkable except as noted in HPI & below Physical Exam Physical Exam: General: No acute distress. A+Ox3. HEENT: Normocephalic. Atraumatic. PERRL. EOMI. Conjunctiva and sclera clear. NECK: No carotid bruits. No JVD. Carotid upstrokes are brisk. Heart: Tachycardic. S1 and S2 noted. + mechanical click murmur. No rubs or gallops. PMI non displaced. Lungs: +wheezes and diminished breath sounds throughout. No rhonchi. No rales. Abdomen: Normal bowel sounds. Soft. Nontender. No masses or organomegaly. No abdominal bruits. Extremities: +1 bilateral LE edema. No clubbing or cyanosis. Pulses: radial=2/4, posterior tibial=2/4, dorsalis pedis = 2/4. NEURO: No focal deficits. PSYCH: Appropriate affect and insight. Constitutional: WD/WN, vitals as above + obese; no acute distress Neck: trachea midline, no thyromegaly Respiratory: normal respiratory effort Auscultation: + diminished lung sounds; no crackles and no rales Cardiovascular: Rate/Rhythm: regular rate and regular rhythm Heart Sounds: + murmur (II/ crisp mechanical click) Vessels: no JVD Extremities: no edema Gastrointestinal (Abdomen): normal bowel sounds, soft, nontender, no hepatosplenomegaly Musculoskeletal: no cyanosis or clubbing, extremities motor strength 5/5 Skin: no rashes, warm and dry Results & Data Vital Signs (Past 12 Hours) Vital Signs Temp Pulse Pulse Resp BP Pulse Ox O2 Del Method 05/24/24 11:27 36.8 C 70 18 117/61 96 Nasal Cannula 05/24/24 10:10 Nasal Cannula 05/24/24 07:34 37.2 C 77 18 109/64 94 Nasal Cannula 05/24/24 07:27 78 05/24/24 03:00 37.1 C 71 20 141/72 H 95 Nasal Cannula O2 Flow Rate 05/24/24 11:27 3 05/24/24 10:10 3 05/24/24 07:34 3 05/24/24 07:27 05/24/24 03:00 3 Laboratory Results Coagulation 05/24/24 Range/Units 05:54 PT 23.9 H (9.0-12.0) Seconds CBC 05/24/24 Range/Units 05:54 WBC 11.67 H (4.8-10.8) K/ul RBC 3.28 L (4.20-5.40) M/uL Hgb 9.5 L (12.0-16.0) g/dl Hct 28.9 L (37.0-47.0) % Plt Count 280 (130-400) K/uL Comprehensive Metabolic Panel 05/24/24 Range/Units 05:54 Sodium 135 L (136-145) mmol/L Potassium 4.3 (3.5-5.1) mmol/L Chloride 97 L (98-107) mmol/L Carbon Dioxide 30 (21-32) mmol/L BUN 34 H (6-23) mg/dl Creatinine 1.85 H D (0.6-1.2) mg/dl Glucose 149 H (70-99(Fasting)) mg/dl Calcium 9.0 (8.6-10.3) mg/dl Intake and Output 05/23/24 05/24/24 05/24/24 22:59 06:59 14:59 Intake Total 100 / 505 100 / 505 Output Total 100 / 250 150 / 250 Balance 0 / 255 -50 / 255 Intake: Oral 100 / 200 100 / 200 Output: Urine Amount (Catheter) 100 / 250 150 / 250 External 100 / 250 150 / 250 Other: Weight 98.2 kg Weight Measurement Method Built in [facility] Diagnostic Findings Telemetry reviewed: Underlying atrial fibrillation with rates 60-70's and intermittent ventricular pacing Medications Administered Current Inpatient Medications Acetaminophen (Acetaminophen 325 Mg Tab) 650 mg PO Q4H PRN PRN Reason: Pain or Fever Stop: 06/22/24 04:21 Last Admin: 05/24/24 04:35 Dose: 650 mg Albuterol (Albuterol 0.083% Nebu Soln 3 Ml Vial) 2.5 mg INH QID PRN; Protocol PRN Reason: Shortness Of Breath Or Wheezing Stop: 06/22/24 04:21 Albuterol (Albuterol Hfa 8 Gm Inhaler) 2 puffs INH Q4H PRN PRN Reason: Shortness Of Breath Or Wheezin Stop: 06/22/24 04:21 Atorvastatin Calcium (Atorvastatin 40 Mg Tab) 40 mg PO DAILY GABBI Stop: 06/22/24 08:59 Last Admin: 05/24/24 08:48 Dose: 40 mg Clopidogrel Bisulfate (Clopidogrel Bisulfate 75 Mg Tab) 75 mg PO DAILY GABBI Stop: 06/22/24 08:59 Last Admin: 05/24/24 08:48 Dose: 75 mg Dextrose (Dextrose 50% 50 Ml Syringe) 25 - 50 ml IV UD PRN; Protocol PRN Reason: Hypoglycemia Protocol Stop: 06/22/24 04:21 Diltiazem HCl (Diltiazem Hcl 120 Mg Capcr) 120 mg PO DAILY GABBI Stop: 06/22/24 08:59 Last Admin: 05/24/24 08:48 Dose: 120 mg Ezetimibe (Ezetimibe 10 Mg Tab) 10 mg PO DAILY GABBI Stop: 06/22/24 08:59 Last Admin: 05/24/24 08:48 Dose: 10 mg Fluoxetine HCl (Fluoxetine Hcl 20 Mg Cap) 20 mg PO DAILY GABBI Stop: 06/22/24 08:59 Last Admin: 05/24/24 08:48 Dose: 20 mg Fluticasone Furoate (Fluticasone Furoate 100mcg 14 Puffs/Inhaler) 1 puffs INH DAILY GABBI Stop: 06/22/24 08:59 Last Admin: 05/24/24 08:51 Dose: 1 puffs Furosemide (Furosemide 40 Mg/4 Ml Vial) 40 mg IV [id number] GABBI Stop: 06/22/24 08:59 Last Admin: 05/23/24 17:06 Dose: 40 mg Glucagon (Glucagon For Inj 1 Mg Vial) 1 mg SQ UD PRN; Protocol PRN Reason: Hypoglycemia Protocol Stop: 06/22/24 04:21 Glucose (Glucose 40% Gel 15 Gm Tube) 15 - 30 gm PO UD PRN; Protocol PRN Reason: Hypoglycemia Protocol Stop: 06/22/24 04:21 Glucose (Glucose 10 Tab/Tube) 4 - 8 tab PO UD PRN; Protocol PRN Reason: Hypoglycemia Treatment Stop: 06/22/24 04:21 Azithromycin 500 mg/ Dextrose 255 mls @ 125 mls/hr IV Q24H GABBI; Protocol Stop: 05/28/24 10:59 Last Admin: 05/24/24 12:19 Dose: 125 mls/hr Cefepime HCl 1,000 mg/ Syringe 10 mls @ 5 mls/min IV Q12H GABBI; Protocol Stop: 05/30/24 11:59 Last Admin: 05/24/24 11:55 Dose: 5 mls/min Insulin Aspart (Insulin Aspart Per Unit Charge) 0 units SC ACHS [facility] Stop: 06/22/24 07:29 Last Admin: 05/24/24 09:01 Dose: 7 units Insulin Glargine (Lantus Per Unit Charge) 40 units SQ QAM GABBI Stop: 06/22/24 06:14 Last Admin: 05/24/24 09:01 Dose: 40 units Metoprolol Succinate (Metoprolol Succ 50mg Ext Rel Tab) 50 mg PO DAILY [facility] Stop: 06/22/24 08:59 Last Admin: 05/24/24 08:48 Dose: 50 mg Miscellaneous (Carbohydrates For Hypoglycemia ) 15 - 30 gm PO UD PRN PRN Reason: Hypoglycemia Protocol Stop: 06/22/24 04:21 Miscellaneous Information (Pharmacy Glycemic Mgmt Consult) 1 each N/A UD PRN; Protocol PRN Reason: Consult Stop: 06/22/24 07:48 Nitroglycerin (Nitroglycerin Sl 0.4 Mg/Tab Tab) 0.4 mg SL Q5M PRN PRN Reason: Chest Pain Stop: 06/22/24 04:21 Nystatin (Nystatin Powder 15gm Btl) 1 appln EXT BID [facility] Stop: 06/22/24 20:59 Last Admin: 05/24/24 08:49 Dose: 1 appln Ondansetron HCl (Ondansetron Inj 2 Mg/Ml 2 Ml Vial) 4 mg IV Q6H PRN PRN Reason: Nausea Stop: 06/22/24 04:21 Pantoprazole Sodium (Pantoprazole 40 Mg Tab) 40 mg PO DAILY [facility] Stop: 06/22/24 08:59 Last Admin: 05/24/24 08:49 Dose: 40 mg Spironolactone (Spironolactone 25 Mg Tab) 25 mg PO DAILY [facility] Stop: 06/22/24 08:59 Last Admin: 05/23/24 09:29 Dose: 25 mg Trazodone HCl (Trazodone Hcl 50 Mg Tab) 50 mg PO HS [facility] Stop: 06/22/24 20:59 Last Admin: 05/23/24 20:12 Dose: 50 mg Umeclidinium/Vilanterol (Umeclidinium/Vilanterol 62.5/25mcg 7 Puffs/Inhaler) 1 puffs INH DAILY [facility] Stop: 06/22/24 08:59 Last Admin: 05/24/24 08:50 Dose: 1 puffs Warfarin Sodium (Warfarin Sod 2.5 Mg Tab) 2.5 mg PO [email or web address] [facility] Stop: 06/23/24 15:59 Warfarin Sodium (Warfarin Sod 5 Mg Tab) 5 mg PO [email or web address]@1600 [facility] Stop: 06/22/24 15:59 Last Admin: 05/23/24 17:06 Dose: 5 mg (2) Pneumonia Laterality: bilateral Lung location: unspecified part of lung Pneumonia type: due to unspecified organism Qualified Code(s): J18.9 - Pneumonia, unspecified organism
--- NOTE | 2024-05-24 12:35 | Pharmacy Report ---
Pharmacy Glycemic Short Note 2 - Date of Service May 24, 2024 - Glycemic Short BSG Results (Last 24 hours): 05/23/24 05/23/24 05/24/24 18:00 20:36 05:54 Glucose 149 H POC Glucose 198 H 157 H 05/24/24 12:12 Glucose POC Glucose 257 H OUTPATIENT ANTIDIABETIC REGIMEN: * Tresiba 40 units SC HS * Novolog 10 unit SC BIDM HbA1c: 8.8% (05/12/24) ASSESSMENT: 05/24/24 * Total insulin given 05/23 was 63 units including the 10units of iv regular insulin (40 units of basal insulin) * Basal insulin to remain the same due to fasting BG of 149 this morning * Will tighten correction factor and CHO ratio starting with the lunch dose today due to elevated lunchtime bg level (257mg/dL) 05/23/24 * NATIVIDAD is an 79 year old female admitted w/ acute CHF exacerbation/pneumonia * Blood sugar in ED > 400 mg/dL, given 10 units of IV regular insulin and 40 units of SC basal, improvement noted at lunchtime (blood sugar of 190 mg/dL) * On cefepime and azithromycin (mixed in dextrose) * Diet ordered PLAN FOR INPATIENT GLYCEMIC CONTROL: * Basal insulin * Lantus 40 units SQ SC qAM * Bolus insulin * NovoLog per scale ACHS or Q6hrs while NPO * Goal Range: Low 110 mg/dL - High 140 mg/dL * Correction Factor: 20 mg/dL/unit * Nutritional / Prandial insulin per carb ratio of 1 unit per 6 grams CHO consumed
--- NOTE | 2024-05-24 14:22 | Hospitalist Progress Note ---
Date of Service May 24, 2024 Assessment & Plan (1) Acute on chronic diastolic (congestive) heart failure: Plan: Ms. Moreno is an 79 year-old female with multiple comorbidities including mitral valve replacement with mechanical prosthesis in 2000 underlying ischemic heart disease and atrial fibrillation who is admitted for acute on chronic heart failure with preserved EF. Imaging revealed right upper and left lower lobe pneumonia/consolidations, with left pleural effusion Temp elevated to 37.9 on admission. Procal normal, however, given recent admission will cover empirically for bacterial pneumonia. Patient improving subjectively. #Abnormal CT c/f pneumonia #SOB #Chronic respiratory failure, 3L NC #COPD Recent hospitalization 05/10/2024, pseudomonas risk factor UA negative Procal 0.08, however, given fever and imaging findings will cover empirically Discharged with transient hold on diuretics. Consolidations on CT c/f pneumonia -Continue Azithromycin and Cefepime IV -sputum cultures if able -Follow blood cultures 05/22 -Continue home inhalers and nebs prn Monitor O2 saturations #Acute on chronic heart failure with preserved EF -pleural effusion noted on imaging with slight edema -diuretics held for 4 days, BNP 2240 Cardiology on consult -Hold furosemide IV 40 BID, -Continue spironolactone 25 mg daily - strict I and Os, daily weights, 2 L fluid restriction and 2 gm sodium restriction - monitor electrolytes and kidney function qam - monitor on telemetry #Chronic atrial fibrillation #SSS s/p pacemaker #Mitral valve replacement with mechanical prosthesis in 2000 continue warfarin Trend INR iso antibiotics -Goal is 2.5-3.5 INR -Discontinue Diltiazem, given HF -Toprol xl 50mg daily #CAD s/p stents On statin, Plavix, and metoprolol succinate #Type 2 diabetes Hyperglycemia Continue home long-acting insulin Sliding scale Glycemic pharmacy consult Close monitor #Hypomagnesia Replace Follow labs #Hyperlipidemia On statin #CKD stage III Baseline creatinine 1.6 uptrending DVT prophylaxis On Coumadin follow PT/INR Disposition Telemetry Full code Admission and Anticipated Discharge Date Admission Date: May 23, 2024 Subjective PAtient reports notable improvement this morning She denies any cough or sputum, but notes she no longer feels febrile Patient states she was able to rest better in the evening Physical Exam Constitutional: WD/WN, vitals as above Respiratory: diminished, on baseline NC Cardiovascular: RRR, no murmur, no edema Gastrointestinal (Abdomen): normal bowel sounds, soft, nontender, no hepatosplenomegaly Results & Data Results & Data Vital Signs (Past 12 Hours) Vital Signs Temp Pulse Pulse Resp BP Pulse Ox O2 Del Method 05/24/24 13:50 71 05/24/24 11:27 36.8 C 70 18 117/61 96 Nasal Cannula 05/24/24 10:10 Nasal Cannula 05/24/24 07:34 37.2 C 77 18 109/64 94 Nasal Cannula 05/24/24 07:27 78 05/24/24 03:00 37.1 C 71 20 141/72 H 95 Nasal Cannula O2 Flow Rate 05/24/24 13:50 05/24/24 11:27 3 05/24/24 10:10 3 05/24/24 07:34 3 05/24/24 07:27 05/24/24 03:00 3 Laboratory Results Short CBC 05/24/24 Range/Units 05:54 WBC 11.67 H (4.8-10.8) K/ul Hgb 9.5 L (12.0-16.0) g/dl Hct 28.9 L (37.0-47.0) % Plt Count 280 (130-400) K/uL BMP 05/24/24 05:54 Sodium 135 L Potassium 4.3 Chloride 97 L Carbon Dioxide 30 BUN 34 H Creatinine 1.85 H D Glucose 149 H Calcium 9.0 Medications Administered Home Medications Medication Instructions Recorded Confirmed Last Taken albuterol sulfate 2.5 mg/3 mL 2.5 mg inhalation QID PRN 05/23/24 05/23/24 Unknown (0.083 %) solution for nebulization Shortness Of Breath Or Wheezing albuterol sulfate 90 mcg/actuation 2 puff inhalation Q4H PRN 05/23/24 05/23/24 Unknown aerosol inhaler (Ventolin HFA) Shortness Of Breath Or Wheezing atorvastatin 40 mg tablet 40 mg PO DAILY 05/23/24 05/23/24 Unknown clopidogrel 75 mg tablet 75 mg PO DAILY 05/23/24 05/23/24 Unknown diltiazem HCl 120 mg 120 mg PO DAILY 05/23/24 05/23/24 Unknown capsule,extended release 24 hr ezetimibe 10 mg tablet 10 mg PO DAILY 05/23/24 05/23/24 Unknown fluoxetine 20 mg capsule 20 mg PO DAILY 05/23/24 05/23/24 Unknown fluticasone fur. 100 mcg-umeclid 1 inh inhalation DAILY 05/23/24 05/23/24 Unknown 62.5 mcg-vilant 25 mcg inhalat.powder (Trelegy Ellipta) furosemide 40 mg tablet 80 mg PO DAILY 05/23/24 05/23/24 Unknown insulin aspart U-100 100 unit/mL 10 unit subcut UD 05/23/24 05/23/24 Unknown (3 mL) subcutaneous pen (Novolog FlexPen U-100 Insulin aspart) insulin degludec 100 unit/mL (3 40 unit subcut 05/23/24 05/23/24 Unknown mL) subcutaneous pen (Tresiba FlexTouch U-100 insulin) metoprolol succinate 50 mg 50 mg PO DAILY 05/23/24 05/23/24 Unknown tablet,extended release 24 hr omeprazole 20 mg capsule,delayed 20 mg PO DAILY 05/23/24 05/23/24 Unknown release spironolactone 25 mg tablet 25 mg PO DAILY 05/23/24 05/23/24 Unknown trazodone 50 mg tablet 50 mg PO 05/23/24 05/23/24 Unknown warfarin 2.5 mg tablet 2.5 mg PO 05/23/24 05/23/24 Unknown Active Medications Generic Name Dose Route Start Last Admin Trade Name Freq PRN Reason Stop Dose Admin Acetaminophen 650 mg 05/23/24 04:22 05/24/24 12:53 Acetaminophen 325 Mg Tab PO 06/22/24 04:21 650 mg Q4H PRN Administration Pain or Fever Atorvastatin Calcium 40 mg 05/23/24 09:00 05/24/24 08:48 Atorvastatin 40 Mg Tab PO 06/22/24 08:59 40 mg DAILY GABBI Administration Clopidogrel Bisulfate 75 mg 05/23/24 09:00 05/24/24 08:48 Clopidogrel Bisulfate 75 Mg Tab PO 06/22/24 08:59 75 mg DAILY GABBI Administration Ezetimibe 10 mg 05/23/24 09:00 05/24/24 08:48 Ezetimibe 10 Mg Tab PO 06/22/24 08:59 10 mg DAILY GABBI Administration Fluoxetine HCl 20 mg 05/23/24 09:00 05/24/24 08:48 Fluoxetine Hcl 20 Mg Cap PO 06/22/24 08:59 20 mg DAILY GABBI Administration Fluticasone Furoate 1 puffs 05/23/24 09:00 05/24/24 08:51 Fluticasone Furoate 100mcg 14 Puffs/Inhaler INH 06/22/24 08:59 1 puffs DAILY GABBI Administration Furosemide 40 mg 05/23/24 09:00 05/23/24 17:06 Furosemide 40 Mg/4 Ml Vial IV 06/22/24 08:59 40 mg BID17 GABBI Administration Azithromycin 500 mg/ Dextrose 255 mls @ 125 mls/hr 05/23/24 11:00 05/24/24 12:19 IV 05/28/24 10:59 125 mls/hr Q24H GABBI Administration Protocol Cefepime HCl 1,000 mg/ Syringe 10 mls @ 5 mls/min 05/24/24 12:00 05/24/24 11:55 IV 05/30/24 11:59 5 mls/min Q12H GABBI Administration Protocol Insulin Aspart 0 units 05/23/24 07:30 05/24/24 12:53 Insulin Aspart Per Unit Charge SC 06/22/24 07:29 8 units ACHS GABBI Administration Insulin Glargine 40 units 05/23/24 06:15 05/24/24 09:01 Lantus Per Unit Charge SQ 06/22/24 06:14 40 units QAM GABBI Administration Nystatin 1 appln 05/23/24 21:00 05/24/24 08:49 Nystatin Powder 15gm Btl EXT 06/22/24 20:59 1 appln BID GABBI Administration Pantoprazole Sodium 40 mg 05/23/24 09:00 05/24/24 08:49 Pantoprazole 40 Mg Tab PO 06/22/24 08:59 40 mg DAILY GABBI Administration Spironolactone 25 mg 05/23/24 09:00 05/23/24 09:29 Spironolactone 25 Mg Tab PO 06/22/24 08:59 25 mg DAILY GABBI Administration Trazodone HCl 50 mg 05/23/24 21:00 05/23/24 20:12 Trazodone Hcl 50 Mg Tab PO 06/22/24 20:59 50 mg HS GABBI Administration Umeclidinium/Vilanterol 1 puffs 05/23/24 09:00 05/24/24 08:50 Umeclidinium/Vilanterol 62.5/25mcg 7 Puffs/Inhaler INH 06/22/24 08:59 1 puffs DAILY GABBI Administration Warfarin Sodium 5 mg 05/23/24 16:00 05/23/24 17:06 Warfarin Sod 5 Mg Tab PO 06/22/24 15:59 5 mg [id number]@1600 GABBI Administration
[2024-05-24] MEDS: WARFARIN SOD 2.5 MG TAB PO SCH (16:55)
[2024-05-24] MEDS: METOPROLOL SUCC 50MG EXT REL TAB PO SCH (21:05)
--- NOTE | 2024-05-25 05:55 | Electrocardiogram Report ---
Test Reason : Blood Pressure : */* mmHG Vent. Rate : 92 BPM Atrial Rate : * BPM P-R Int : * ms QRS Dur : 86 ms QT Int : 364 ms P-R-T Axes : * 40 -70 degrees QTcB Int : 450 ms Atrial fibrillation with frequent ventricular-paced complexes Abnormal ECG When compared with ECG of 13-May-2024 06:03, Vent. rate has increased by 19 bpm Confirmed by Arya Low ([id number]) on 05/25/2024 5:55:04 AM Referred By: REFERRED SELF Confirmed By: Arya Low
[2024-05-25 06:21] LABS: Hematocrit (blood only) 27.2 % (37.0-47.0); Mean Corpuscular Hemoglobin 28.8 pg (25.0-34.0); Mean Corpuscular Hgb Conc 33.1 g/dL (32.0-36.0); Mean Corpuscular Volume 86.9 fL (80.0-100.0); Mean Platelet Volume 9.8 fL (9.4-12.4); Platelet Count 311 K/uL (130-400); RDW Coefficient of Variation 14.2 % (11.5-14.5); RDW Standard Deviation 45.3 fL (36.4-46.3); Red Blood Count 3.13 M/uL (4.20-5.40); White Blood Count 9.34 K/ul (4.8-10.8)
[2024-05-25 06:36] LABS: Calcium 8.8 mg/dl (8.6-10.3); Creatinine Clr Calc Pharmacy 24.1 ml/min; Est GFR (African American) 25.8 ml/min; Est GFR (Non-African American) 22.3 ml/min; Magnesium 1.8 mg/dl (1.7-2.4); Phosphorus 3.4 mg/dl (2.5-4.9); Potassium 4.2 mmol/L (3.5-5.1)
[2024-05-25 06:45] LABS: INR 2.7 (0.9-1.1); Prothrombin Time 27.2 Seconds (9.0-12.0)
[2024-05-25 07:32] LABS: Immature Retic Fraction 14.5 % (2.3-15.9); Reticulated Hemoglobin 25.7 pg (28.2-36.6)
[2024-05-25] MEDS: SODIUM CHLORIDE 0.9% 500 ML IV ONE (07:45)
[2024-05-25] MEDS: MAGNESIUM SULFATE / D5W 1 GM/100 ML BAG IV ONE (07:46)
[2024-05-25 08:03] LABS: Ferritin 986.2 ng/ml (8-388)
[2024-05-25 08:50] LABS: Folate (Folic Acid),Ser orPlas > 22.30 ng/ml (>5.38)
[2024-05-25 08:51] LABS: Vitamin B12 547 pg/ml (180-914)
[2024-05-25 13:06] LABS: Appearance Urine Clear (Clear); Bacteria Urine Automated None Seen (None Seen); Bilirubin Urine Negative (Negative); Blood Urine Negative (Negative); Cast Urine Automated 0-2 /lpf (0-2); Color Urine Yellow; Epithelial Cell Urine Auto 0-2 /hpf (0-2); Glucose Urine UA Negative (Negative); Ketones Urine Negative (Negative); Leukocyte Esterase Urine Negative (Negative); Nitrite Urine Negative (Negative); Protein Urine 1+ (Negative); RBC Urine Automated 0-2 /hpf (0-2); Specific Gravity Urine 1.011 (1.000-1.030); Urobilinogen Urine Negative (Negative); WBC Urine Automated 0-5 /hpf (0-5)
--- NOTE | 2024-05-25 13:07 | Cardiology Progress Note ---
Date of Service May 25, 2024 Assessment & Plan (1) Acute on chronic diastolic (congestive) heart failure: (2) Pneumonia: (3) S/P MVR (mitral valve replacement): (4) JORGE (acute kidney injury): Plan 05/23/24: 79 year old female with past medical history of rheumatic valvular disease s/p mechanical MVR in 2000, CAD s/p stents, atrial fibrillation, HTN, HLD, DM 2, hx CVA, CKD, chronic respiratory failure on 3L, who presents with worsening shortness of breath and edema. Diuretics held for 4 days after recent hospital admission due to JORGE. - on exam today continues to have shortness of breath, edema, chills - Chest CT with small left pleural effusion, right upper lobe and left lower lobe pneumonia - BNP 270, mildly hypervolemic on exam - symptoms consistent with acute on chronic heart failure in setting of acute pneumonia - antibiotics per primary - continue furosemide IV 40 BID, spironolactone 25 mg daily - strict I and Os, daily weights, 2 L fluid restriction and 2 gm sodium restriction - monitor electrolytes and kidney function - monitor on telemetry 05/24/24: -Interval improvement in patient's respiratory status and volume status this morning after receiving 24+ hours of antibiotics and several doses of IV lasix. -Weight down 5 kg since admission -Creatinine trending upward from 1.5 to 1.8 this morning. -Hold PM dose of furosemide -continue spironolactone -Continue antibiotics for pneumonia. -Daily weight with standing scale. -Stop diltiazem given recurrent admission for CHF/edema and increase metoprolol to 50 mg BID. -Continue anticoagulation with Coumadin. INR goal 2.5 to 3.5 Given mechanical valve. INR 2.4 this morning. 05/25/24: -Respiratory status improved from admission. -Continue antibiotics for pneumonia per hospitalist. Consider repeat chest xray -Volume status improved. Weight continues to trend downward. Improved dyspnea/ edema. -Unfortunately with IV diuretics creatinine trended upward from 1.5 to 1.8 and now 2.0. -She did not receive diuretics this morning. Hold furosemide and spironolactone. -Repeat labs in AM. -BP controlled. Continue higher dose metoprolol at 50 mg BID (Diltiazem stopped) -Continue anticoagulation with Coumadin. INR at goal at 2.7 Continue plavix, zetia, atorvastatin. Case discussed with Dr. Madsen I spent a total of 35 minutes on the date of service in preparation, delivery, and documentation of the care provided to this patient, excluding any time spent in the performance of separately billed services. Kym Brady PA-C Department of Cardiology, [facility] This chart was completed in part utilizing Speech Voice Recognition Software. Grammatical errors, random word insertions, pronoun errors, and incomplete sentences are an occasional consequence of this system due to software limitations, ambient noise, and hardware issues. Any formal questions or concerns about the content, text, or information contained within the body of this dictation should be directly addressed to the provider for clarification. . Admission and Anticipated Discharge Date Admission Date: May 23, 2024 Supervising Physician Co-Signing Physician Notes Attending attestation: Case reviewed with the advanced practitioner. I have personally performed a history and physical examination on the patient. I have reviewed the advanced practitioner's documentation on the date of service referenced in note, and I agree with, and take responsibility for the plan of care. I spent a total of 20 minutes coordinating, documenting, and providing care for this patient excluding time spent in the performance of separately billed services or time spent by another provider. Jose Madsen, DO Subjective Patient resting in bed. Feeling "ok". Reports SOB about the same. ongoing cough. No fever or chills. No chest pain. Edema improved from admission. Review of Systems Review of Systems: All systems reviewed & are unremarkable except as noted in HPI & below Physical Exam Constitutional: WD/WN, vitals as above + obese; no acute distress Neck: trachea midline, no thyromegaly Respiratory: normal respiratory effort Auscultation: + diminished lung sounds; no crackles and no rales Cardiovascular: Rate/Rhythm: regular rate and regular rhythm Heart Sounds: + murmur (II/ crisp mechanical click) Vessels: no JVD Extremities: no edema Gastrointestinal (Abdomen): normal bowel sounds, soft, nontender, no hepatosplenomegaly Musculoskeletal: no cyanosis or clubbing, extremities motor strength 5/5 Skin: no rashes, warm and dry Results & Data Vital Signs (Past 12 Hours) Vital Signs Temp Pulse Pulse Resp BP BP Pulse Ox 05/25/24 11:05 36.3 C L 68 18 126/63 93 05/25/24 08:00 65 05/25/24 08:00 05/25/24 07:22 36.9 C 64 18 124/72 93 05/25/24 02:56 37.3 C 74 18 101/50 L 93 O2 Del Method O2 Flow Rate 05/25/24 11:05 Nasal Cannula 3 05/25/24 08:00 05/25/24 08:00 Nasal Cannula 3 05/25/24 07:22 Nasal Cannula 3 05/25/24 02:56 Nasal Cannula 3 Laboratory Results Coagulation 05/25/24 Range/Units 05:40 PT 27.2 H (9.0-12.0) Seconds CBC 05/25/24 Range/Units 05:40 WBC 9.34 (4.8-10.8) K/ul RBC 3.13 L (4.20-5.40) M/uL Hgb 9.0 L (12.0-16.0) g/dl Hct 27.2 L (37.0-47.0) % Plt Count 311 (130-400) K/uL Comprehensive Metabolic Panel 05/25/24 Range/Units 05:40 Sodium 132 L (136-145) mmol/L Potassium 4.2 (3.5-5.1) mmol/L Chloride 95 L (98-107) mmol/L Carbon Dioxide 27 (21-32) mmol/L BUN 53 H (6-23) mg/dl Creatinine 2.04 H (0.6-1.2) mg/dl Glucose 140 H (70-99(Fasting)) mg/dl Calcium 8.8 (8.6-10.3) mg/dl Intake and Output 05/24/24 05/25/24 05/25/24 22:59 06:59 14:59 Intake Total 100 / 630 600 / 600 Output Total 100 / 400 300 / 400 Balance -100 / 230 -200 / 230 600 / 600 Intake: IV 600 / 600 Magnesium Sulfate / D5w 1 gm In 100 / 100 100 ml @ 50 mls/hr IV ONE ONE Rx#:[id number] Sodium Chloride 0.9% 500 ml @ 500 / 500 500 mls/hr IV .Q1H ONE Rx#: [id number] Oral 100 / 375 Output: Urine 100 / 400 300 / 400 Other: Weight 98 kg Weight Measurement Method Built in [facility] Diagnostic Findings Telemetry reviewed: Afib with intermittent pacing. rates controlled ranging 60- 80 bmp Medications Administered Current Inpatient Medications Acetaminophen (Acetaminophen 325 Mg Tab) 650 mg PO Q4H PRN PRN Reason: Pain or Fever Stop: 06/22/24 04:21 Last Admin: 05/24/24 12:53 Dose: 650 mg Albuterol (Albuterol 0.083% Nebu Soln 3 Ml Vial) 2.5 mg INH QID PRN; Protocol PRN Reason: Shortness Of Breath Or Wheezing Stop: 06/22/24 04:21 Albuterol (Albuterol Hfa 8 Gm Inhaler) 2 puffs INH Q4H PRN PRN Reason: Shortness Of Breath Or Wheezin Stop: 06/22/24 04:21 Atorvastatin Calcium (Atorvastatin 40 Mg Tab) 40 mg PO DAILY GABBI Stop: 06/22/24 08:59 Last Admin: 05/25/24 08:15 Dose: 40 mg Clopidogrel Bisulfate (Clopidogrel Bisulfate 75 Mg Tab) 75 mg PO DAILY GABBI Stop: 06/22/24 08:59 Last Admin: 05/25/24 08:15 Dose: 75 mg Dextrose (Dextrose 50% 50 Ml Syringe) 25 - 50 ml IV UD PRN; Protocol PRN Reason: Hypoglycemia Protocol Stop: 06/22/24 04:21 Ezetimibe (Ezetimibe 10 Mg Tab) 10 mg PO DAILY GABBI Stop: 06/22/24 08:59 Last Admin: 05/25/24 08:15 Dose: 10 mg Fluoxetine HCl (Fluoxetine Hcl 20 Mg Cap) 20 mg PO DAILY GABBI Stop: 06/22/24 08:59 Last Admin: 05/25/24 08:14 Dose: 20 mg Fluticasone Furoate (Fluticasone Furoate 100mcg 14 Puffs/Inhaler) 1 puffs INH DAILY GABBI Stop: 06/22/24 08:59 Last Admin: 05/25/24 08:15 Dose: 1 puffs Furosemide (Furosemide 40 Mg/4 Ml Vial) 40 mg IV [id number] GABBI Stop: 06/22/24 08:59 Last Admin: 05/23/24 17:06 Dose: 40 mg Glucagon (Glucagon For Inj 1 Mg Vial) 1 mg SQ UD PRN; Protocol PRN Reason: Hypoglycemia Protocol Stop: 06/22/24 04:21 Glucose (Glucose 40% Gel 15 Gm Tube) 15 - 30 gm PO UD PRN; Protocol PRN Reason: Hypoglycemia Protocol Stop: 06/22/24 04:21 Glucose (Glucose 10 Tab/Tube) 4 - 8 tab PO UD PRN; Protocol PRN Reason: Hypoglycemia Treatment Stop: 06/22/24 04:21 Azithromycin 500 mg/ Dextrose 255 mls @ 125 mls/hr IV Q24H [facility]; Protocol Stop: 05/28/24 10:59 Last Admin: 05/25/24 12:33 Dose: 255 mls/hr Cefepime HCl 1,000 mg/ Syringe 10 mls @ 5 mls/min IV Q12H [facility]; Protocol Stop: 05/30/24 11:59 Last Admin: 05/25/24 11:48 Dose: 5 mls/min Insulin Aspart (Insulin Aspart Per Unit Charge) 0 units SC ACHS [facility] Stop: 06/22/24 07:29 Last Admin: 05/25/24 12:28 Dose: 8 units Insulin Glargine (Lantus Per Unit Charge) 40 units SQ TODAY@1400 [facility] Stop: 05/25/24 14:01 Insulin Glargine (Lantus Per Unit Charge) 40 units SQ HS [facility] Stop: 06/25/24 20:59 Metoprolol Succinate (Metoprolol Succ 50mg Ext Rel Tab) 50 mg PO BID [facility] Stop: 06/23/24 20:59 Last Admin: 05/25/24 08:15 Dose: 50 mg Miscellaneous (Carbohydrates For Hypoglycemia ) 15 - 30 gm PO UD PRN PRN Reason: Hypoglycemia Protocol Stop: 06/22/24 04:21 Miscellaneous Information (Pharmacy Glycemic Mgmt Consult) 1 each N/A UD PRN; Protocol PRN Reason: Consult Stop: 06/22/24 07:48 Nitroglycerin (Nitroglycerin Sl 0.4 Mg/Tab Tab) 0.4 mg SL Q5M PRN PRN Reason: Chest Pain Stop: 06/22/24 04:21 Nystatin (Nystatin Powder 15gm Btl) 1 appln EXT BID [facility] Stop: 06/22/24 20:59 Last Admin: 05/25/24 08:16 Dose: 1 appln Ondansetron HCl (Ondansetron Inj 2 Mg/Ml 2 Ml Vial) 4 mg IV Q6H PRN PRN Reason: Nausea Stop: 06/22/24 04:21 Pantoprazole Sodium (Pantoprazole 40 Mg Tab) 40 mg PO DAILY [facility] Stop: 06/22/24 08:59 Last Admin: 05/25/24 08:14 Dose: 40 mg Spironolactone (Spironolactone 25 Mg Tab) 25 mg PO DAILY [facility] Stop: 06/22/24 08:59 Last Admin: 05/23/24 09:29 Dose: 25 mg Trazodone HCl (Trazodone Hcl 50 Mg Tab) 50 mg PO HS [facility] Stop: 06/22/24 20:59 Last Admin: 05/24/24 21:08 Dose: 50 mg Umeclidinium/Vilanterol (Umeclidinium/Vilanterol 62.5/25mcg 7 Puffs/Inhaler) 1 puffs INH DAILY [facility] Stop: 06/22/24 08:59 Last Admin: 05/25/24 08:16 Dose: 1 puffs Warfarin Sodium (Warfarin Sod 2.5 Mg Tab) 2.5 mg PO [email or web address]@1600 [facility] Stop: 06/23/24 15:59 Last Admin: 05/24/24 16:55 Dose: 2.5 mg Warfarin Sodium (Warfarin Sod 5 Mg Tab) 5 mg PO [email or web address]@1600 [facility] Stop: 06/22/24 15:59 Last Admin: 05/23/24 17:06 Dose: 5 mg (2) Pneumonia Laterality: bilateral Lung location: unspecified part of lung Pneumonia type: due to unspecified organism Qualified Code(s): J18.9 - Pneumonia, unspecified organism
[2024-05-25 13:31] LABS: Protein Creatinine Ratio Urine 0.9 (0-0.2); Total Protein Urine Random 54.8 mg/dl (0-11.9); Urine Chloride < 15 mmol/L; Urine Potassium 20.9 mmol/L; Urine Sodium 20 mmol/L
[2024-05-25] MEDS: LANTUS PER UNIT CHARGE SQ SCH (14:06)
--- NOTE | 2024-05-25 15:59 | Hospitalist Progress Note ---
Date of Service May 25, 2024 Assessment & Plan (1) Acute on chronic diastolic (congestive) heart failure: Plan: Ms. Moreno is an 79 year-old female with multiple comorbidities including mitral valve replacement with mechanical prosthesis in 2000 underlying ischemic heart disease and atrial fibrillation who is admitted for acute on chronic heart failure with preserved EF. Imaging revealed right upper and left lower lobe pneumonia/consolidations, with left pleural effusion Temp elevated to 37.9 on admission. Procal normal, however, given recent admission will cover empirically for bacterial pneumonia. Patient improving subjectively. #Abnormal CT c/f pneumonia #SOB #Chronic respiratory failure, 3L NC #COPD Recent hospitalization 05/10/2024, pseudomonas risk factor UA negative Procal 0.08, however, given fever and imaging findings will cover empirically Discharged with transient hold on diuretics. Consolidations on CT c/f pneumonia -Continue Azithromycin and Cefepime IV -consider deescalation -sputum cultures if able -NGTD on blood culures -Continue home inhalers and nebs prn Monitor O2 saturations #JORGE on CKD stage III Baseline creatinine 1.6 uptrending after diuretics, appears a little dry with elevated bun/cr, s/p small bolus Repeat BMP Hold diuretics and spironolactone If up trending consider Nephrology #Acute on chronic heart failure with preserved EF -pleural effusion noted on imaging with slight edema -diuretics held for 4 days, BNP 2240 Cardiology on consult -Hold furosemide IV 40 BID, -Hold spironolactone 25 mg daily - strict I and Os, daily weights, 2 L fluid restriction and 2 gm sodium restriction - monitor electrolytes and kidney function qam - monitor on telemetry #Chronic atrial fibrillation #SSS s/p pacemaker #Mitral valve replacement with mechanical prosthesis in 2000 continue warfarin Trend INR iso antibiotics -Goal is 2.5-3.5 INR -Discontinue Diltiazem, given HF -Toprol xl 50mg daily #CAD s/p stents On statin, Plavix, and metoprolol succinate #Type 2 diabetes Hyperglycemia Continue home long-acting insulin Sliding scale Glycemic pharmacy consult Close monitor #Hypomagnesia Replace Follow labs #Hyperlipidemia On statin DVT prophylaxis On Coumadin follow PT/INR Disposition Telemetry DISPO in 1-2 days to rehab. Patient needs prompt follow up with PCP for referral to pain mgmt v ortho for discussion hip injections. Patient's son reports majority of patient immobility and reluctance for rehab is hip pain and patient did not continue with initial pain management physician Patient agreeable to rehab with plans to reestablish as OP Full code Admission and Anticipated Discharge Date Admission Date: May 23, 2024 Subjective Reports subjective improvement this am No fevers, chills cough or other acute concerns Physical Exam Constitutional: WD/WN, vitals as above Respiratory: normal respiratory effort, lungs clear to auscultation Cardiovascular: RRR, no murmur, no edema Gastrointestinal (Abdomen): normal bowel sounds, soft, nontender, no hepatosplenomegaly Results & Data Results & Data Vital Signs (Past 12 Hours) Vital Signs Temp Pulse Pulse Resp BP Pulse Ox Pulse Ox 05/25/24 15:32 36.5 C 60 18 135/73 97 05/25/24 14:23 96 05/25/24 14:16 68 05/25/24 11:05 36.3 C L 68 18 126/63 93 05/25/24 08:00 65 05/25/24 08:00 05/25/24 07:22 36.9 C 64 18 124/72 93 Pulse Ox O2 Del Method O2 Flow Rate O2 Flow Rate O2 Flow Rate 05/25/24 15:32 Nasal Cannula 3 05/25/24 14:23 94 3 3 05/25/24 14:16 05/25/24 11:05 Nasal Cannula 3 05/25/24 08:00 05/25/24 08:00 Nasal Cannula 3 05/25/24 07:22 Nasal Cannula 3 Laboratory Results Short CBC 05/25/24 Range/Units 05:40 WBC 9.34 (4.8-10.8) K/ul Hgb 9.0 L (12.0-16.0) g/dl Hct 27.2 L (37.0-47.0) % Plt Count 311 (130-400) K/uL BMP 05/25/24 05:40 Sodium 132 L Potassium 4.2 Chloride 95 L Carbon Dioxide 27 BUN 53 H Creatinine 2.04 H Glucose 140 H Calcium 8.8 Urine 05/25/24 Range/Units 12:45 Urine Color Yellow Urine Appearance Clear (Clear) Urine pH 5.0 (4.5-7.5) Ur Specific [place] 1.011 (1.000-1.030) Urine Protein 1+ H (Negative) Urine Glucose (UA) Negative (Negative) Medications Administered Home Medications Medication Instructions Recorded Confirmed Last Taken albuterol sulfate 2.5 mg/3 mL 2.5 mg inhalation QID PRN 05/23/24 05/23/24 Unknown (0.083 %) solution for nebulization Shortness Of Breath Or Wheezing albuterol sulfate 90 mcg/actuation 2 puff inhalation Q4H PRN 05/23/24 05/23/24 Unknown aerosol inhaler (Ventolin HFA) Shortness Of Breath Or Wheezing atorvastatin 40 mg tablet 40 mg PO DAILY 05/23/24 05/23/24 Unknown clopidogrel 75 mg tablet 75 mg PO DAILY 05/23/24 05/23/24 Unknown diltiazem HCl 120 mg 120 mg PO DAILY 05/23/24 05/23/24 Unknown capsule,extended release 24 hr ezetimibe 10 mg tablet 10 mg PO DAILY 05/23/24 05/23/24 Unknown fluoxetine 20 mg capsule 20 mg PO DAILY 05/23/24 05/23/24 Unknown fluticasone fur. 100 mcg-umeclid 1 inh inhalation DAILY 05/23/24 05/23/24 Unknown 62.5 mcg-vilant 25 mcg inhalat.powder (Trelegy Ellipta) furosemide 40 mg tablet 80 mg PO DAILY 05/23/24 05/23/24 Unknown insulin aspart U-100 100 unit/mL 10 unit subcut 05/23/24 05/23/24 Unknown (3 mL) subcutaneous pen (Novolog FlexPen U-100 Insulin aspart) insulin degludec 100 unit/mL (3 40 unit subcut 05/23/24 05/23/24 Unknown mL) subcutaneous pen (Tresiba FlexTouch U-100 insulin) metoprolol succinate 50 mg 50 mg PO DAILY 05/23/24 05/23/24 Unknown tablet,extended release 24 hr omeprazole 20 mg capsule,delayed 20 mg PO DAILY 05/23/24 05/23/24 Unknown release spironolactone 25 mg tablet 25 mg PO DAILY 05/23/24 05/23/24 Unknown trazodone 50 mg tablet 50 mg PO 05/23/24 05/23/24 Unknown warfarin 2.5 mg tablet 2.5 mg PO UD 05/23/24 05/23/24 Unknown Active Medications Generic Name Dose Route Start Last Admin Trade Name Freq PRN Reason Stop Dose Admin Acetaminophen 650 mg 05/23/24 04:22 05/24/24 12:53 Acetaminophen 325 Mg Tab PO 06/22/24 04:21 650 mg Q4H PRN Administration Pain or Fever Atorvastatin Calcium 40 mg 05/23/24 09:00 05/25/24 08:15 Atorvastatin 40 Mg Tab PO 06/22/24 08:59 40 mg DAILY GABBI Administration Clopidogrel Bisulfate 75 mg 05/23/24 09:00 05/25/24 08:15 Clopidogrel Bisulfate 75 Mg Tab PO 06/22/24 08:59 75 mg DAILY GABBI Administration Ezetimibe 10 mg 05/23/24 09:00 05/25/24 08:15 Ezetimibe 10 Mg Tab PO 06/22/24 08:59 10 mg DAILY GABBI Administration Fluoxetine HCl 20 mg 05/23/24 09:00 05/25/24 08:14 Fluoxetine Hcl 20 Mg Cap PO 06/22/24 08:59 20 mg DAILY GABBI Administration Fluticasone Furoate 1 puffs 05/23/24 09:00 05/25/24 08:15 Fluticasone Furoate 100mcg 14 Puffs/Inhaler INH 06/22/24 08:59 1 puffs DAILY GABBI Administration Furosemide 40 mg 05/23/24 09:00 05/23/24 17:06 Furosemide 40 Mg/4 Ml Vial IV 06/22/24 08:59 40 mg BID17 GABBI Administration Azithromycin 500 mg/ Dextrose 255 mls @ 125 mls/hr 05/23/24 11:00 05/25/24 13:36 IV 05/28/24 10:59 Infused Q24H GABBI Infusion Protocol Cefepime HCl 1,000 mg/ Syringe 10 mls @ 5 mls/min 05/24/24 12:00 05/25/24 11:48 IV 05/30/24 11:59 5 mls/min Q12H GABBI Administration Protocol Insulin Aspart 0 units 05/23/24 07:30 05/25/24 12:28 Insulin Aspart Per Unit Charge SC 06/22/24 07:29 8 units ACHS GABBI Administration Metoprolol Succinate 50 mg 05/24/24 21:00 05/25/24 08:15 Metoprolol Succ 50mg Ext Rel Tab PO 06/23/24 20:59 50 mg BID GABBI Administration Nystatin 1 appln 05/23/24 21:00 05/25/24 08:16 Nystatin Powder 15gm Btl EXT 06/22/24 20:59 1 appln BID GABBI Administration Pantoprazole Sodium 40 mg 05/23/24 09:00 05/25/24 08:14 Pantoprazole 40 Mg Tab PO 06/22/24 08:59 40 mg DAILY GABBI Administration Spironolactone 25 mg 05/23/24 09:00 05/23/24 09:29 Spironolactone 25 Mg Tab PO 06/22/24 08:59 25 mg DAILY GABBI Administration Trazodone HCl 50 mg 05/23/24 21:00 05/24/24 21:08 Trazodone Hcl 50 Mg Tab PO 06/22/24 20:59 50 mg HS GABBI Administration Umeclidinium/Vilanterol 1 puffs 05/23/24 09:00 05/25/24 08:16 Umeclidinium/Vilanterol 62.5/25mcg 7 Puffs/Inhaler INH 06/22/24 08:59 1 puffs DAILY GABBI Administration Warfarin Sodium 2.5 mg 05/24/24 16:00 05/24/24 16:55 Warfarin Sod 2.5 Mg Tab PO 06/23/24 15:59 2.5 mg [id number]@1600 GABBI Administration Warfarin Sodium 5 mg 05/23/24 16:00 05/23/24 17:06 Warfarin Sod 5 Mg Tab PO 06/22/24 15:59 5 mg [id number]@1600 GABBI Administration
[2024-05-25 16:56] LABS: BUN Creatinine Ratio 25.5 (10-20); Calcium 8.6 mg/dl (8.6-10.3); Creatinine Clr Calc Pharmacy 23.2 ml/min; Est GFR (African American) 24.7 ml/min; Est GFR (Non-African American) 21.3 ml/min; Potassium 3.9 mmol/L (3.5-5.1)
[2024-05-26 07:25] LABS: INR 3.2 (0.9-1.1); Prothrombin Time 31.7 Seconds (9.0-12.0)
--- NOTE | 2024-05-26 11:06 | Pharmacy Report ---
Pharmacy Glycemic Short Note 2 - Date of Service May 26, 2024 - Glycemic Short BSG Results (Last 24 hours): 05/25/24 05/25/24 05/25/24 11:04 14:02 15:51 Glucose 208 H POC Glucose 229 H 289 H 05/25/24 05/25/24 05/26/24 16:22 20:03 07:17 Glucose POC Glucose 202 H 120 H 99 OUTPATIENT ANTIDIABETIC REGIMEN: * Tresiba 40 units SC HS * Novolog 10 unit SC BIDM * HbA1c: 8.8% (05/12/24) ASSESSMENT: 05/26: * BSGs yesterday were: 102-284-274-120 mg/dL. Patient received 40 units basal + 25 units bolus. * Fasting BSG was 99 mg/dL this AM. Stressors remain stable. Remains on azithromycin and cefepime. Tolerating diet. Will reduce basal by ~15% this evening. * No change to Novolog at this time. 05/24: * Total insulin given 05/23 was 63 units including the 10units of iv regular insulin (40 units of basal insulin) * Basal insulin to remain the same due to fasting BG of 149 this morning * Will tighten correction factor and CHO ratio starting with the lunch dose today due to elevated lunchtime bg level (257mg/dL) 05/23: * NATIVIDAD is an 79 year old female admitted w/ acute CHF exacerbation/pneumonia * Blood sugar in ED > 400 mg/dL, given 10 units of IV regular insulin and 40 units of SC basal, improvement noted at lunchtime (blood sugar of 190 mg/dL) * On cefepime and azithromycin (mixed in dextrose) * Diet ordered PLAN FOR INPATIENT GLYCEMIC CONTROL: * Basal insulin * Lantus 35 units SC HS * Bolus insulin * NovoLog per scale ACHS or Q6hrs while NPO * Goal Range: Low 110 mg/dL - High 140 mg/dL * Correction Factor: 20 mg/dL/unit * Nutritional / Prandial insulin per carb ratio of 1 unit per 6 grams CHO consumed
--- NOTE | 2024-05-26 11:46 | Cardiology Progress Note ---
Date of Service May 26, 2024 Assessment & Plan (1) Acute on chronic diastolic (congestive) heart failure: (2) Pneumonia: (3) S/P MVR (mitral valve replacement): (4) JORGE (acute kidney injury): Plan 05/23/24: 79 year old female with past medical history of rheumatic valvular disease s/p mechanical MVR in 2000, CAD s/p stents, atrial fibrillation, HTN, HLD, DM 2, hx CVA, CKD, chronic respiratory failure on 3L, who presents with worsening shortness of breath and edema. Diuretics held for 4 days after recent hospital admission due to OJRGE. - on exam today continues to have shortness of breath, edema, chills - Chest CT with small left pleural effusion, right upper lobe and left lower lobe pneumonia - BNP 270, mildly hypervolemic on exam - symptoms consistent with acute on chronic heart failure in setting of acute pneumonia - antibiotics per primary - continue furosemide IV 40 BID, spironolactone 25 mg daily - strict I and Os, daily weights, 2 L fluid restriction and 2 gm sodium restriction - monitor electrolytes and kidney function - monitor on telemetry 05/24/24: -Interval improvement in patient's respiratory status and volume status this morning after receiving 24+ hours of antibiotics and several doses of IV lasix. -Weight down 5 kg since admission -Creatinine trending upward from 1.5 to 1.8 this morning. -Hold PM dose of furosemide -continue spironolactone -Continue antibiotics for pneumonia. -Daily weight with standing scale. -Stop diltiazem given recurrent admission for CHF/edema and increase metoprolol to 50 mg BID. -Continue anticoagulation with Coumadin. INR goal 2.5 to 3.5 Given mechanical valve. INR 2.4 this morning. 05/25/24: -Respiratory status improved from admission. -Continue antibiotics for pneumonia per hospitalist. Consider repeat chest xray -Volume status improved. Weight continues to trend downward. Improved dyspnea/ edema. -Unfortunately with IV diuretics creatinine trended upward from 1.5 to 1.8 and now 2.0. -She did not receive diuretics this morning. Hold furosemide and spironolactone. -Repeat labs in AM. -BP controlled. Continue higher dose metoprolol at 50 mg BID (Diltiazem stopped) -Continue anticoagulation with Coumadin. INR at goal at 2.7 Continue plavix, zetia, atorvastatin. 9/18/24: Interval improvement of respiratory status since admission. Appears euvolemic. Diuretics remain on hold given renal insufficiency. Hyponatremia also noted. repeat labs pending BP controlled. INR therapeutic at 3.2 Continue home meds including metoprolol, plavix, zetia, atorvastatin. Diltazem discontinued. Consider nephrology consult if creatinine or hyponatremia does not improve She will likely require at least low dose diuretic on discharge. Last admission diuretics were held on discharge and she had recurrent admission with HF Case discussed with Dr. Madsen I spent a total of 35 minutes on the date of service in preparation, delivery, and documentation of the care provided to this patient, excluding any time spent in the performance of separately billed services. Kym Brady PA-C Department of Cardiology, [facility] This chart was completed in part utilizing Speech Voice Recognition Software. Grammatical errors, random word insertions, pronoun errors, and incomplete sentences are an occasional consequence of this system due to software limitations, ambient noise, and hardware issues. Any formal questions or concerns about the content, text, or information contained within the body of this dictation should be directly addressed to the provider for clarification. . Admission and Anticipated Discharge Date Admission Date: May 23, 2024 Supervising Physician Co-Signing Physician Notes Attending attestation: Case reviewed with the advanced practitioner. I have personally performed a history and physical examination on the patient. I have reviewed the advanced practitioner's documentation on the date of service referenced in note, and I agree with, and take responsibility for the plan of care. Baseline creatinine in 2022 was 1.3 as outpatient x 2 measurements. In 08/2023 as inpatient creatinine was 1.6-.17 mg /dl. May need to permit some degree of azotemia. Recommend resuming SAMPLE PASTER furosemide 80 mg PO daily on 05/27/24. I spent a total of 20 minutes coordinating, documenting, and providing care for this patient excluding time spent in the performance of separately billed services or time spent by another provider. Jose Madsen, DO Subjective Patient sitting up in chair at time of evaluation. Reports "feeling better today". SOB improved. No chest pain. Cough improved. No palpitations or tachypalpitations. No increased edema. Review of Systems Review of Systems: All systems reviewed & are unremarkable except as noted in HPI & below Physical Exam Constitutional: WD/WN, vitals as above + obese; no acute distress Neck: trachea midline, no thyromegaly Respiratory: normal respiratory effort Auscultation: + diminished lung sounds; no crackles and no rales Cardiovascular: Rate/Rhythm: regular rate and regular rhythm Heart Sounds: + murmur (II/ crisp mechanical click) Vessels: no JVD Extremities: no edema Gastrointestinal (Abdomen): normal bowel sounds, soft, nontender, no hepatosplenomegaly Musculoskeletal: no cyanosis or clubbing, extremities motor strength 5/5 Skin: no rashes, warm and dry Results & Data Vital Signs (Past 12 Hours) Vital Signs Temp Pulse Pulse Resp BP Pulse Ox O2 Del Method 05/26/24 11:15 36.4 C L 69 18 121/50 L 97 Nasal Cannula 05/26/24 10:22 Nasal Cannula 05/26/24 08:11 36.6 C 80 18 114/50 L 95 Nasal Cannula 05/26/24 08:00 62 05/26/24 05:00 05/26/24 02:52 36.3 C L 62 18 110/64 97 Nasal Cannula O2 Del Method O2 Flow Rate 05/26/24 11:15 3.0 05/26/24 10:22 3 05/26/24 08:11 3 05/26/24 08:00 05/26/24 05:00 Nasal Cannula 05/26/24 02:52 3 Laboratory Results Coagulation 05/26/24 Range/Units 06:10 PT 31.7 H (9.0-12.0) Seconds Comprehensive Metabolic Panel 05/25/24 Range/Units 15:51 Sodium 132 L (136-145) mmol/L Potassium 3.9 (3.5-5.1) mmol/L Chloride 96 L (98-107) mmol/L Carbon Dioxide 27 (21-32) mmol/L BUN 54 H (6-23) mg/dl Creatinine 2.12 H (0.6-1.2) mg/dl Glucose 208 H (70-99(Fasting)) mg/dl Calcium 8.6 (8.6-10.3) mg/dl Intake and Output 05/25/24 05/26/24 05/26/24 22:59 06:59 14:59 Other: Weight 100.9 kg Weight Measurement Method Built in [facility] Diagnostic Findings Telemetry reviewed: Atrial fibrillation with controlled rates, intermittent ventricular pacing Medications Administered Current Inpatient Medications Acetaminophen (Acetaminophen 325 Mg Tab) 650 mg PO Q4H PRN PRN Reason: Pain or Fever Stop: 06/22/24 04:21 Last Admin: 05/24/24 12:53 Dose: 650 mg Albuterol (Albuterol 0.083% Nebu Soln 3 Ml Vial) 2.5 mg INH QID PRN; Protocol PRN Reason: Shortness Of Breath Or Wheezing Stop: 06/22/24 04:21 Albuterol (Albuterol Hfa 8 Gm Inhaler) 2 puffs INH Q4H PRN PRN Reason: Shortness Of Breath Or Wheezin Stop: 06/22/24 04:21 Atorvastatin Calcium (Atorvastatin 40 Mg Tab) 40 mg PO DAILY GABBI Stop: 06/22/24 08:59 Last Admin: 05/26/24 09:21 Dose: 40 mg Clopidogrel Bisulfate (Clopidogrel Bisulfate 75 Mg Tab) 75 mg PO DAILY GABBI Stop: 06/22/24 08:59 Last Admin: 05/26/24 09:21 Dose: 75 mg Dextrose (Dextrose 50% 50 Ml Syringe) 25 - 50 ml IV UD PRN; Protocol PRN Reason: Hypoglycemia Protocol Stop: 06/22/24 04:21 Ezetimibe (Ezetimibe 10 Mg Tab) 10 mg PO DAILY GABBI Stop: 06/22/24 08:59 Last Admin: 05/26/24 09:21 Dose: 10 mg Fluoxetine HCl (Fluoxetine Hcl 20 Mg Cap) 20 mg PO DAILY GABBI Stop: 06/22/24 08:59 Last Admin: 05/26/24 09:20 Dose: 20 mg Fluticasone Furoate (Fluticasone Furoate 100mcg 14 Puffs/Inhaler) 1 puffs INH DAILY GABBI Stop: 06/22/24 08:59 Last Admin: 05/26/24 09:22 Dose: 1 puffs Furosemide (Furosemide 40 Mg/4 Ml Vial) 40 mg IV [id number] GABBI Stop: 06/22/24 08:59 Last Admin: 05/23/24 17:06 Dose: 40 mg Glucagon (Glucagon For Inj 1 Mg Vial) 1 mg SQ UD PRN; Protocol PRN Reason: Hypoglycemia Protocol Stop: 06/22/24 04:21 Glucose (Glucose 40% Gel 15 Gm Tube) 15 - 30 gm PO UD PRN; Protocol PRN Reason: Hypoglycemia Protocol Stop: 06/22/24 04:21 Glucose (Glucose 10 Tab/Tube) 4 - 8 tab PO UD PRN; Protocol PRN Reason: Hypoglycemia Treatment Stop: 06/22/24 04:21 Azithromycin 500 mg/ Dextrose 255 mls @ 125 mls/hr IV Q24H [facility]; Protocol Stop: 05/28/24 10:59 Last Infusion: 05/25/24 13:36 Dose: Infused Cefepime HCl 1,000 mg/ Syringe 10 mls @ 5 mls/min IV Q12H [facility]; Protocol Stop: 05/30/24 11:59 Last Admin: 05/26/24 00:01 Dose: 5 mls/min Insulin Aspart (Insulin Aspart Per Unit Charge) 0 units SC ACHS [facility] Stop: 06/22/24 07:29 Last Admin: 05/26/24 09:45 Dose: 7 units Insulin Glargine (Lantus Per Unit Charge) 40 units SQ HS [facility] Stop: 06/25/24 20:59 Metoprolol Succinate (Metoprolol Succ 50mg Ext Rel Tab) 50 mg PO BID [facility] Stop: 06/23/24 20:59 Last Admin: 05/26/24 09:20 Dose: 50 mg Miscellaneous (Carbohydrates For Hypoglycemia ) 15 - 30 gm PO UD PRN PRN Reason: Hypoglycemia Protocol Stop: 06/22/24 04:21 Miscellaneous Information (Pharmacy Glycemic Mgmt Consult) 1 each N/A UD PRN; Protocol PRN Reason: Consult Stop: 06/22/24 07:48 Nitroglycerin (Nitroglycerin Sl 0.4 Mg/Tab Tab) 0.4 mg SL Q5M PRN PRN Reason: Chest Pain Stop: 06/22/24 04:21 Nystatin (Nystatin Powder 15gm Btl) 1 appln EXT BID [facility] Stop: 06/22/24 20:59 Last Admin: 05/26/24 09:24 Dose: 1 appln Ondansetron HCl (Ondansetron Inj 2 Mg/Ml 2 Ml Vial) 4 mg IV Q6H PRN PRN Reason: Nausea Stop: 06/22/24 04:21 Pantoprazole Sodium (Pantoprazole 40 Mg Tab) 40 mg PO DAILY [facility] Stop: 06/22/24 08:59 Last Admin: 05/26/24 09:19 Dose: 40 mg Spironolactone (Spironolactone 25 Mg Tab) 25 mg PO DAILY [facility] Stop: 06/22/24 08:59 Last Admin: 05/23/24 09:29 Dose: 25 mg Trazodone HCl (Trazodone Hcl 50 Mg Tab) 50 mg PO HS [facility] Stop: 06/22/24 20:59 Last Admin: 05/25/24 21:19 Dose: 50 mg Umeclidinium/Vilanterol (Umeclidinium/Vilanterol 62.5/25mcg 7 Puffs/Inhaler) 1 puffs INH DAILY [facility] Stop: 06/22/24 08:59 Last Admin: 05/26/24 09:23 Dose: 1 puffs Warfarin Sodium (Warfarin Sod 2.5 Mg Tab) 2.5 mg PO [email or web address] [facility] Stop: 06/23/24 15:59 Last Admin: 05/24/24 16:55 Dose: 2.5 mg Warfarin Sodium (Warfarin Sod 5 Mg Tab) 5 mg PO [email or web address] [facility] Stop: 06/22/24 15:59 Last Admin: 05/25/24 17:30 Dose: 5 mg (2) Pneumonia Laterality: bilateral Lung location: unspecified part of lung Pneumonia type: due to unspecified organism Qualified Code(s): J18.9 - Pneumonia, unspecified organism
[2024-05-26 11:59] LABS: BUN Creatinine Ratio 25.8 (10-20); Calcium 8.8 mg/dl (8.6-10.3); Creatinine Clr Calc Pharmacy 25.8 ml/min; Est GFR (African American) 27.5 ml/min; Est GFR (Non-African American) 23.7 ml/min; Potassium 4.5 mmol/L (3.5-5.1)
--- NOTE | 2024-05-26 15:03 | Hospitalist Progress Note ---
Date of Service May 26, 2024 Assessment & Plan (1) Acute on chronic diastolic (congestive) heart failure: Plan: Ms. Moreno is an 79 year-old female with multiple comorbidities including mitral valve replacement with mechanical prosthesis in 2000 underlying ischemic heart disease and atrial fibrillation who is admitted for acute on chronic heart failure with preserved EF. Imaging revealed right upper and left lower lobe pneumonia/consolidations, with left pleural effusion Temp elevated to 37.9 on admission. Procal normal, however, given recent admission will cover empirically for bacterial pneumonia. Patient improving subjectively. #Abnormal CT c/f pneumonia #SOB #Chronic respiratory failure, 3L NC #COPD Recent hospitalization 05/10/2024, pseudomonas risk factor UA negative Procal 0.08, however, given fever and imaging findings will cover empirically Discharged with transient hold on diuretics. Consolidations on CT c/f pneumonia -Continue Azithromycin and Cefepime IV -consider deescalation -sputum cultures if able -NGTD on blood culures -Continue home inhalers and nebs prn Monitor O2 saturations 05/26 Clinically improving Back to baseline of 3 L by nasal cannula Continue cefepime plus azithromycin Continue usual inhalers #JORGE on CKD stage III Baseline creatinine 1.6 uptrending after diuretics, appears a little dry with elevated bun/cr, s/p small bolus Repeat BMP Hold diuretics and spironolactone If up trending consider Nephrology 05/26 crea still at 1.9 will consult Nephro #Acute on chronic heart failure with preserved EF -pleural effusion noted on imaging with slight edema -diuretics held for 4 days, BNP 2240 Cardiology on consult -Hold furosemide IV 40 BID, -Hold spironolactone 25 mg daily - strict I and Os, daily weights, 2 L fluid restriction and 2 gm sodium restriction - monitor electrolytes and kidney function qam - monitor on telemetry 05/26 Still with bilateral lower extremity edema, creatinine has slightly improved compared to yesterday Will consult nephrology for diuretic management recommendations #Chronic atrial fibrillation #SSS s/p pacemaker #Mitral valve replacement with mechanical prosthesis in 2000 continue warfarin Trend INR iso antibiotics -Goal is 2.5-3.5 INR -Discontinue Diltiazem, given HF -Toprol xl 50mg daily 05/26 INR 3.2 #CAD s/p stents On statin, Plavix, and metoprolol succinate #Type 2 diabetes Hyperglycemia Continue home long-acting insulin Sliding scale Glycemic pharmacy consult Close monitor #Hypomagnesia Replace Follow labs #Hyperlipidemia On statin DVT prophylaxis On Coumadin follow PT/INR Disposition DISPO in 1-2 days to rehab. Patient needs prompt follow up with PCP for referral to pain mgmt v ortho for discussion hip injections. Patient's son reports majority of patient immobility and reluctance for rehab is hip pain and patient did not continue with initial pain management physician Patient agreeable to rehab with plans to reestablish as OP Full code Admission and Anticipated Discharge Date Admission Date: May 23, 2024 Subjective Follow-up for acute on chronic respiratory failure, pneumonia, acute on chronic diastolic CHF exacerbation, etc. Seen resting in bedside chair, on 3 L of O2 by nasal cannula In good spirits, comfortable States she continues to feel improved overall Breathing is improving, less cough, no chest pain, palpitations, dizziness No other new symptoms Review of Systems Review of Systems: all noted and negative except for above Physical Exam Physical Exam: General- oriented x 3, not in distress, speaks in sentences with no effort or accessory muscle use Eyes- anicteric Neck- no JVD Lungs- mild rales at the bases no wheezing Heart- normal rate, regular rhythm; no murmurs Abdomen- normal bowel sounds, nondistended, soft, nontender Extremities- mild BL lower ext edema, no calf tenderness Neuro- alert, oriented x 3; no gross focal neurologic deficits Skin- warm & dry Results & Data Results & Data Vital Signs (Past 12 Hours) Vital Signs Temp Pulse Pulse Resp BP Pulse Ox O2 Del Method 05/26/24 11:15 36.4 C L 69 18 121/50 L 97 Nasal Cannula 05/26/24 10:22 Nasal Cannula 05/26/24 08:11 36.6 C 80 18 114/50 L 95 Nasal Cannula 05/26/24 08:00 62 05/26/24 05:00 O2 Del Method O2 Flow Rate 05/26/24 11:15 3.0 05/26/24 10:22 3 05/26/24 08:11 3 05/26/24 08:00 05/26/24 05:00 Nasal Cannula all noted and reviewed including below
--- NOTE | 2024-05-26 17:11 | Nephrology Consultation ---
Date of Consultation May 26, 2024 Assessment & Plan (1) JORGE (acute kidney injury): patient has underlying CKD likely from DM.HTN/cardiac Dz with rising baseline creat recently. Given hospital admission recurrence for CHF she does have a obligatory need of Diuretics. this means a higher baseline creat if needed. Also rise of JORGE is mostly related with Acute Pneumonia and CHF causing Hemodynamic issues and not necessarily lasix. This is not obstructive nor prerenal type. In elderly patient like her it does not take much to have JORGE when having acute illness/hemodynamic issues. She needs diuretics and I agree with Cardiology about restarting Diuretics--now lasix 80 daily. even this may not be enough reviewed cardiology note. As long as Creat is around 2 no need to reflexively lower Diuretics. (2) Acute on chronic diastolic (congestive) heart failure: Admission after lasix held for few days. Does need Diuretics. But till we see that she can handle lasix 80 do not restart Aldactone. She has had high K so I dont think she can really be on Both aldactone and JENNIFER /ARB. maybe one of them can be tried once she is on stable lasix dose (3) CKD (chronic kidney disease) stage 3, GFR 30-59 ml/min: baseline ckd 3b from Dm/HTN/Cardiac. But now is worsening CKD and worsened to more like CKD 4. No need of renal biopsy. need a higher baseline creat to allow for better volume Status and avoid Hospital admission (4) Pneumonia: Also playing big role in JORGE. Plan Time spent 65 mins History of Present Illness Reason for Consultation: JORGE Attending Physician: Bernard Duran MD History of Present Illness 79/F with type 2 diabetes, CKD stage III, hyperlipidemia, history of hypokalemia, chronic respiratory failure with hypoxia on home oxygen 3 L-- 24/7, COPD, paroxysmal atrial fibrillation, chronic diastolic CHF, history of CAD s/p stents, morbid obesity, GERD, degenerative disc disease, osteoporosis, chronic pain syndrome, depression, history of mitral valve replacement with mechanical valve who lives at home with her son and family and ambulates mostly with a cane comes in to hospital because of Shortness of breath. was admitted 4 days ago. Patient was recently in the hospital with chest pain and echo was unremarkable and she was also treated for acute UTI and discharged on p.o. antibiotics to complete the course and advised to hold diuretics for 2 days for JORGE. Crest was in the 1.5 to 1.7 range. During this recent admission creat was 1.8--2 range. Came to hospital because of shortness of breath. On arrival, BNP minimally elevated, febrile, respiratory panel negative. Chest CT with small left pleural effusion and pneumonia. Started on IV diuretics and also Abx. Creat was baseline 1.5 on Admission but then went up to 2.1 yesterday but now down today. She got lasix up until 05/24 but not yesterday and today. ROS--see HPI. 12 systems otherwise negative. Physical Exam + obese; no acute distress Neck: No JVD Respiratory: normal respiratory effort Auscultation: + diminished lung sounds. no crackles and now wheezing Cardiovascular: regular rate and regular rhythm + murmur no JVD 1+ edema Gastrointestinal (Abdomen): soft, nontender Skin: no rashes, warm and dry Allergies Allergy/AdvReac Type Severity Reaction Status Date / Time morphine Allergy Unknown vomiting Unverified 05/11/24 22:07 oxycodone Allergy Unknown vomiting Unverified 05/11/24 22:07 adhesive AdvReac Unknown Unknown Verified 05/11/24 22:07 adhesive tape AdvReac Unknown Unknown Verified 05/11/24 22:07 codeine AdvReac Unknown Unknown Verified 05/11/24 22:07 propoxyphene AdvReac Unknown Unknown Verified 05/11/24 22:07 [From Ramila-N] aspirin AdvReac Gastrointestinal Verified 05/11/24 22:07 Upset Home Medications Medication Instructions Recorded Confirmed Type albuterol sulfate 2.5 mg/3 mL 2.5 mg inhalation QID PRN 05/23/24 05/23/24 History (0.083 %) solution for nebulization Shortness Of Breath Or Wheezing albuterol sulfate 90 mcg/actuation 2 puff inhalation Q4H PRN 05/23/24 05/23/24 H istory aerosol inhaler (Ventolin HFA) Shortness Of Breath Or Wheezing atorvastatin 40 mg tablet 40 mg PO DAILY 05/23/24 05/23/24 History clopidogrel 75 mg tablet 75 mg PO DAILY 05/23/24 05/23/24 History diltiazem HCl 120 mg 120 mg PO DAILY 05/23/24 05/23/24 History capsule,extended release 24 hr ezetimibe 10 mg tablet 10 mg PO DAILY 05/23/24 05/23/24 History fluoxetine 20 mg capsule 20 mg PO DAILY 05/23/24 05/23/24 History fluticasone fur. 100 mcg-umeclid 1 inh inhalation DAILY 05/23/24 05/23/24 History 62.5 mcg-vilant 25 mcg inhalat.powder (Trelegy Ellipta) furosemide 40 mg tablet 80 mg PO DAILY 05/23/24 05/23/24 History insulin aspart U-100 100 unit/mL 10 unit subcut UD 05/23/24 05/23/24 History (3 mL) subcutaneous pen (Novolog FlexPen U-100 Insulin aspart) insulin degludec 100 unit/mL (3 40 unit subcut 05/23/24 05/23/24 History mL) subcutaneous pen (Tresiba FlexTouch U-100 insulin) metoprolol succinate 50 mg 50 mg PO DAILY 05/23/24 05/23/24 History tablet,extended release 24 hr omeprazole 20 mg capsule,delayed 20 mg PO DAILY 05/23/24 05/23/24 History release spironolactone 25 mg tablet 25 mg PO DAILY 05/23/24 05/23/24 History trazodone 50 mg tablet 50 mg PO HS 05/23/24 05/23/24 History warfarin 2.5 mg tablet 2.5 mg PO UD 05/23/24 05/23/24 History Patient History Medical History Nonproliferative diabetic retinopathy Anticoagulant long-term use CAD (coronary artery disease) Chronic diastolic congestive heart failure Dyslipidemia Hypertension Diabetes mellitus Atrial fibrillation Chronic renal failure, stage 3 (moderate) Skin cancer Presence of arterial stent Surgical History H/O mitral valve replacement Previous back surgery H/O: section History of cholecystectomy Hx of CABG H/O: hysterectomy Family History Mother Hypertension Hyperlipemia Diabetes Stroke Father Stroke Social History Smoking Status: Never smoker Tobacco Type: Cigarettes Second Hand Exposure: No; Do You Dip or Chew Tobacco: No; Tobacco Cessation Education Requested by Patient: No Hx Alcohol Use: No Hx Substance Use: No Preferred Language: Nepali Communication Ability: Effective Integration Developer Required: No Beliefs That Will Affect Care: None Current Living Situation: Family Current Living Situation Comment: lives with son Other Information That Helps Us Care for You: No Feels Safe at Home: Yes Safety Concerns: Feels Safe At This Time Assistive Devices: Cane, Oxygen - Continuous, Scooter/Electric Scooter and Walker Results & Data Vital Signs (Past 12 Hours) Vital Signs Temp Pulse Pulse Resp BP Pulse Ox O2 Del Method 05/26/24 15:58 36.7 C 72 18 115/50 L 95 Nasal Cannula 05/26/24 15:00 70 05/26/24 11:15 36.4 C L 69 18 121/50 L 97 Nasal Cannula 05/26/24 10:22 Nasal Cannula 05/26/24 08:11 36.6 C 80 18 114/50 L 95 Nasal Cannula 05/26/24 08:00 62 O2 Flow Rate 05/26/24 15:58 2.0 05/26/24 15:00 05/26/24 11:15 3.0 05/26/24 10:22 3 05/26/24 08:11 3 05/26/24 08:00 (4) Pneumonia Laterality: bilateral Lung location: unspecified part of lung Pneumonia type: due to unspecified organism Qualified Code(s): J18.9 - Pneumonia, unspecified organism
[2024-05-26] MEDS: LANTUS PER UNIT CHARGE SQ SCH (20:57)
[2024-05-26] MEDS ORDERED: LANTUS PER UNIT CHARGE SQ SCH (21:00)
[2024-05-27 06:11] LABS: BUN Creatinine Ratio 25.5 (10-20); Calcium 8.7 mg/dl (8.6-10.3); Est GFR (African American) 27.8 ml/min; Potassium 4.4 mmol/L (3.5-5.1)
[2024-05-27] MEDS: FUROSEMIDE 80 MG TAB PO SCH (08:00)
[2024-05-27 10:06] LABS: INR 3.8 (0.9-1.1); Prothrombin Time 36.3 Seconds (9.0-12.0)
--- NOTE | 2024-05-27 11:52 | Cardiology Progress Note ---
Date of Service May 27, 2024 Assessment & Plan (1) Acute on chronic diastolic (congestive) heart failure: (2) Pneumonia: (3) S/P MVR (mitral valve replacement): (4) JORGE (acute kidney injury): Plan 05/23/24: 79 year old female with past medical history of rheumatic valvular disease s/p mechanical MVR in 2000, CAD s/p stents, atrial fibrillation, HTN, HLD, DM 2, hx CVA, CKD, chronic respiratory failure on 3L, who presents with worsening shortness of breath and edema. Diuretics held for 4 days after recent hospital admission due to JORGE. - on exam today continues to have shortness of breath, edema, chills - Chest CT with small left pleural effusion, right upper lobe and left lower lobe pneumonia - BNP 270, mildly hypervolemic on exam - symptoms consistent with acute on chronic heart failure in setting of acute pneumonia - antibiotics per primary - continue furosemide IV 40 BID, spironolactone 25 mg daily - strict I and Os, daily weights, 2 L fluid restriction and 2 gm sodium restriction - monitor electrolytes and kidney function - monitor on telemetry 05/24/24: -Interval improvement in patient's respiratory status and volume status this morning after receiving 24+ hours of antibiotics and several doses of IV lasix. -Weight down 5 kg since admission -Creatinine trending upward from 1.5 to 1.8 this morning. -Hold PM dose of furosemide -continue spironolactone -Continue antibiotics for pneumonia. -Daily weight with standing scale. -Stop diltiazem given recurrent admission for CHF/edema and increase metoprolol to 50 mg BID. -Continue anticoagulation with Coumadin. INR goal 2.5 to 3.5 Given mechanical valve. INR 2.4 this morning. 05/25/24: -Respiratory status improved from admission. -Continue antibiotics for pneumonia per hospitalist. Consider repeat chest xray -Volume status improved. Weight continues to trend downward. Improved dyspnea/ edema. -Unfortunately with IV diuretics creatinine trended upward from 1.5 to 1.8 and now 2.0. -She did not receive diuretics this morning. Hold furosemide and spironolactone. -Repeat labs in AM. -BP controlled. Continue higher dose metoprolol at 50 mg BID (Diltiazem stopped) -Continue anticoagulation with Coumadin. INR at goal at 2.7 Continue plavix, zetia, atorvastatin. 9/18/24: Interval improvement of respiratory status since admission. Appears euvolemic. Diuretics remain on hold given renal insufficiency. Hyponatremia also noted. repeat labs pending BP controlled. INR therapeutic at 3.2 Continue home meds including metoprolol, plavix, zetia, atorvastatin. Diltazem discontinued. Consider nephrology consult if creatinine or hyponatremia does not improve She will likely require at least low dose diuretic on discharge. Last admission diuretics were held on discharge and she had recurrent admission with HF 05/27/24: Furosemide 80 mg PO resumed yesterday due to worsening volume status. edema subjectively improved. SOB at baseline. Creatinine minimally improved at 1.9. Spironolactone remains on hold. Per nephrology, would remain off spironolactone for now Supplement potassium as needed. INR therapeutic at 3.8. Trending upward. Hold coumadin today. Finish antibiotics for pneumonia per hospitalist. Blood culture remain negative. PT/OT recommended. Consider rehab? Continue all other home medications Case discussed with Dr. Madsen I spent a total of 35 minutes on the date of service in preparation, delivery, and documentation of the care provided to this patient, excluding any time spent in the performance of separately billed services. Kym Brady PA-C Department of Cardiology, [facility] This chart was completed in part utilizing Speech Voice Recognition Software. Grammatical errors, random word insertions, pronoun errors, and incomplete sentences are an occasional consequence of this system due to software limitations, ambient noise, and hardware issues. Any formal questions or concerns about the content, text, or information contained within the body of this dictation should be directly addressed to the provider for clarification. . Admission and Anticipated Discharge Date Admission Date: May 23, 2024 Supervising Physician Co-Signing Physician Notes Attending attestation: Case reviewed with the advanced practitioner. I have personally performed a history and physical examination on the patient. I have reviewed the advanced practitioner's documentation on the date of service referenced in note, and I agree with, and take responsibility for the plan of care. I spent a total of 20 minutes coordinating, documenting, and providing care for this patient excluding time spent in the performance of separately billed services or time spent by another provider. Jose Madsen, DO Subjective Patient resting in bed, feeling well. Denies acute complaints. Feels her edema improved from yesterday. ongoing cough and SOB reported. No chest pain. Review of Systems Review of Systems: All systems reviewed & are unremarkable except as noted in HPI & below Physical Exam Constitutional: WD/WN, vitals as above + obese; no acute distress Neck: trachea midline, no thyromegaly Respiratory: normal respiratory effort Auscultation: + diminished lung sounds and + crackles; no rales and no rhonchi Cardiovascular: Rate/Rhythm: regular rate and regular rhythm Heart Sounds: + murmur (II/ crisp mechanical click) Vessels: no JVD Extremities: no edema Gastrointestinal (Abdomen): normal bowel sounds, soft, nontender, no hepatosplenomegaly Musculoskeletal: no cyanosis or clubbing, extremities motor strength 5/5 Skin: no rashes, warm and dry Results & Data Vital Signs (Past 12 Hours) Vital Signs Temp Pulse Pulse Resp BP BP Pulse Ox 05/27/24 09:19 05/27/24 08:53 64 05/27/24 08:13 36.5 C 65 19 127/74 98 05/27/24 05:00 05/27/24 03:19 36.5 C 65 18 112/62 96 O2 Del Method O2 Del Method O2 Flow Rate O2 Flow Rate 05/27/24 09:19 Nasal Cannula 3 05/27/24 08:53 05/27/24 08:13 Nasal Cannula 3 05/27/24 05:00 Nasal Cannula 3 05/27/24 03:19 Nasal Cannula 3 Laboratory Results Coagulation 05/27/24 Range/Units 09:15 PT 36.3 H (9.0-12.0) Seconds Comprehensive Metabolic Panel 05/26/24 05/27/24 Range/Units 06:14 05:31 Sodium 136 135 L (136-145) mmol/L Potassium 4.5 4.4 (3.5-5.1) mmol/L Chloride 99 100 (98-107) mmol/L Carbon Dioxide 29 29 (21-32) mmol/L BUN 50 H 49 H (6-23) mg/dl Creatinine 1.94 H 1.92 H (0.6-1.2) mg/dl Glucose 78 135 H (70-99(Fasting)) mg/dl Calcium 8.8 8.7 (8.6-10.3) mg/dl Intake and Output 09/05/27/24 05/27/24 22:59 06:59 14:59 Intake Total 710 / 1465 100 / 1465 Output Total 0 / 550 550 / 550 Balance 710 / 915 -450 / 915 Intake: Oral 710 / 1210 100 / 1210 Output: Urine Amount (Catheter) 550 / 550 External 550 / 550 # Bowel Movements 0 / 0 Other: # Unmeasured Voids 1 Weight 99.564 kg Weight Measurement Method Built in [facility] Diagnostic Findings Telemetry reviewed: Afib with intermittent pacing Medications Administered Current Inpatient Medications Acetaminophen (Acetaminophen 325 Mg Tab) 650 mg PO Q4H PRN PRN Reason: Pain or Fever Stop: 06/22/24 04:21 Last Admin: 05/24/24 12:53 Dose: 650 mg Albuterol (Albuterol 0.083% Nebu Soln 3 Ml Vial) 2.5 mg INH QID PRN; Protocol PRN Reason: Shortness Of Breath Or Wheezing Stop: 06/22/24 04:21 Albuterol (Albuterol Hfa 8 Gm Inhaler) 2 puffs INH Q4H PRN PRN Reason: Shortness Of Breath Or Wheezin Stop: 06/22/24 04:21 Atorvastatin Calcium (Atorvastatin 40 Mg Tab) 40 mg PO DAILY GABBI Stop: 06/22/24 08:59 Last Admin: 05/27/24 08:01 Dose: 40 mg Clopidogrel Bisulfate (Clopidogrel Bisulfate 75 Mg Tab) 75 mg PO DAILY GABBI Stop: 06/22/24 08:59 Last Admin: 05/27/24 08:00 Dose: 75 mg Dextrose (Dextrose 50% 50 Ml Syringe) 25 - 50 ml IV UD PRN; Protocol PRN Reason: Hypoglycemia Protocol Stop: 06/22/24 04:21 Ezetimibe (Ezetimibe 10 Mg Tab) 10 mg PO DAILY GABBI Stop: 06/22/24 08:59 Last Admin: 05/27/24 09:11 Dose: 10 mg Fluoxetine HCl (Fluoxetine Hcl 20 Mg Cap) 20 mg PO DAILY GABBI Stop: 06/22/24 08:59 Last Admin: 05/27/24 08:00 Dose: 20 mg Fluticasone Furoate (Fluticasone Furoate 100mcg 14 Puffs/Inhaler) 1 puffs INH DAILY GABBI Stop: 06/22/24 08:59 Last Admin: 05/27/24 07:57 Dose: 1 puffs Furosemide (Furosemide 80 Mg Tab) 80 mg PO QAM GABBI Stop: 06/26/24 08:59 Last Admin: 05/27/24 08:00 Dose: 80 mg Glucagon (Glucagon For Inj 1 Mg Vial) 1 mg SQ UD PRN; Protocol PRN Reason: Hypoglycemia Protocol Stop: 06/22/24 04:21 Glucose (Glucose 40% Gel 15 Gm Tube) 15 - 30 gm PO UD PRN; Protocol PRN Reason: Hypoglycemia Protocol Stop: 06/22/24 04:21 Glucose (Glucose 10 Tab/Tube) 4 - 8 tab PO UD PRN; Protocol PRN Reason: Hypoglycemia Treatment Stop: 06/22/24 04:21 Azithromycin 500 mg/ Dextrose 255 mls @ 125 mls/hr IV Q24H [facility]; Protocol Stop: 05/28/24 10:59 Last Admin: 05/27/24 10:34 Dose: 125 mls/hr Cefepime HCl 1,000 mg/ Syringe 10 mls @ 5 mls/min IV Q12H [facility]; Protocol Stop: 05/30/24 11:59 Last Admin: 05/26/24 23:05 Dose: 5 mls/min Insulin Aspart (Insulin Aspart Per Unit Charge) 0 units SC ACHS [facility] Stop: 06/22/24 07:29 Last Admin: 05/27/24 08:03 Dose: 10 units Insulin Glargine (Lantus Per Unit Charge) 35 units SQ HS [facility] Stop: 06/25/24 20:59 Last Admin: 05/26/24 20:57 Dose: 35 units Metoprolol Succinate (Metoprolol Succ 50mg Ext Rel Tab) 50 mg PO BID [facility] Stop: 06/23/24 20:59 Last Admin: 05/27/24 09:11 Dose: 50 mg Miscellaneous (Carbohydrates For Hypoglycemia ) 15 - 30 gm PO UD PRN PRN Reason: Hypoglycemia Protocol Stop: 06/22/24 04:21 Miscellaneous Information (Pharmacy Glycemic Mgmt Consult) 1 each N/A UD PRN; Protocol PRN Reason: Consult Stop: 06/22/24 07:48 Nitroglycerin (Nitroglycerin Sl 0.4 Mg/Tab Tab) 0.4 mg SL Q5M PRN PRN Reason: Chest Pain Stop: 06/22/24 04:21 Nystatin (Nystatin Powder 15gm Btl) 1 appln EXT BID [facility] Stop: 06/22/24 20:59 Last Admin: 05/27/24 08:01 Dose: 1 appln Ondansetron HCl (Ondansetron Inj 2 Mg/Ml 2 Ml Vial) 4 mg IV Q6H PRN PRN Reason: Nausea Stop: 06/22/24 04:21 Pantoprazole Sodium (Pantoprazole 40 Mg Tab) 40 mg PO DAILY [facility] Stop: 06/22/24 08:59 Last Admin: 05/27/24 08:00 Dose: 40 mg Trazodone HCl (Trazodone Hcl 50 Mg Tab) 50 mg PO HS [facility] Stop: 06/22/24 20:59 Last Admin: 05/26/24 20:56 Dose: 50 mg Umeclidinium/Vilanterol (Umeclidinium/Vilanterol 62.5/25mcg 7 Puffs/Inhaler) 1 puffs INH DAILY [facility] Stop: 06/22/24 08:59 Last Admin: 05/27/24 07:56 Dose: 1 puffs Warfarin Sodium (Warfarin Sod 2.5 Mg Tab) 2.5 mg PO [id number]@1600 [facility] Stop: 06/23/24 15:59 Last Admin: 05/26/24 16:58 Dose: 2.5 mg Warfarin Sodium (Warfarin Sod 5 Mg Tab) 5 mg PO [id number]@1600 [facility] Stop: 06/22/24 15:59 Last Admin: 05/25/24 17:30 Dose: 5 mg (2) Pneumonia Laterality: bilateral Lung location: unspecified part of lung Pneumonia type: due to unspecified organism Qualified Code(s): J18.9 - Pneumonia, unspecified organism
--- NOTE | 2024-05-27 14:43 | Nephrology Progress Note ---
Date of Service May 27, 2024 Assessment & Plan Admission and Anticipated Discharge Date Admission Date: May 23, 2024 Subjective Assessment & Plan (1) JORGE (acute kidney injury): patient has underlying CKD likely from DM.HTN/cardiac Dz with rising baseline creat recently. Given hospital admission recurrence for CHF she does have a obligatory need of Diuretics. this means a higher baseline creat if needed. Also rise of JORGE is mostly related with Acute Pneumonia and CHF causing Hemodynamic issues and not necessarily lasix. This is not obstructive nor prerenal type. In elderly patient like her it does not take much to have JORGE when having acute illness/hemodynamic issues. She needs diuretics and I agree with Cardiology about restarting Diuretics--now lasix 80 daily. This may not be enough. She had only 2 urination after AM lasix and was darker ( not lasix mediated dilute urine ) She has had high K so I dont think she can really be on Both aldactone and JENNIFER/ARB. maybe one of them can be tried once she is on stable lasix dose Reviewed cardiology note. As long as Creat is around 2 no need to reflexively lower Diuretics. reviewed todays labs--CBC and renal panel. BUN creat same as yesterday. K normal. Na borderline low but acceptable. Concerning to see daily decline of hgb and is now 9. this does happen with anem ia worsening with infection (2) Acute on chronic diastolic (congestive) heart failure: Admission after lasix held for few days. Does need Diuretics. But till we see that she can handle lasix 80 do not restart Aldactone. She has had high K so I dont think she can really be on Both aldactone and JENNIFER/ARB. maybe one of them can be tried once she is on stable lasix dose (3) CKD (chronic kidney disease) stage 3, GFR 30-59 ml/min: baseline ckd 3b from Dm/HTN/Cardiac. But now is worsening CKD and worsened to more like CKD 4. No need of renal biopsy. need a higher baseline creat to allow for better volume Status and avoid Hospital admission (4) Pneumonia: Also playing big role in JORGE. S--feels breathing is better . However feels she has too much edema. She had 2 urination after AM lasix and was darker ( not lasix mediated dilute urine ) Physical Exam + obese; no acute distress Neck: No JVD Respiratory: normal respiratory effort Auscultation: + diminished lung sounds. no crackles and now wheezing Cardiovascular: regular rate and regular rhythm + murmur no JVD 1+ edema Gastrointestinal (Abdomen): soft, nontender Skin: no rashes, warm and dry Results & Data Vital Signs (Past 12 Hours) Vital Signs Temp Pulse Pulse Resp BP BP Pulse Ox 05/27/24 14:30 61 05/27/24 12:16 36.3 C L 67 20 115/71 95 05/27/24 09:19 05/27/24 08:53 64 05/27/24 08:13 36.5 C 65 19 127/74 98 05/27/24 05:00 05/27/24 03:19 36.5 C 65 18 112/62 96 O2 Del Method O2 Del Method O2 Flow Rate O2 Flow Rate 05/27/24 14:30 05/27/24 12:16 Nasal Cannula 3 05/27/24 09:19 Nasal Cannula 3 05/27/24 08:53 05/27/24 08:13 Nasal Cannula 3 05/27/24 05:00 Nasal Cannula 3 05/27/24 03:19 Nasal Cannula 3
--- NOTE | 2024-05-27 17:15 | Hospitalist Progress Note ---
Date of Service May 27, 2024 Assessment & Plan Admission and Anticipated Discharge Date Admission Date: May 23, 2024 Subjective Assessment & Plan (1) JORGE (acute kidney injury): patient has underlying CKD likely from DM.HTN/cardiac Dz with rising baseline creat recently. Given hospital admission recurrence for CHF she does have a obligatory need of Diuretics. this means a higher baseline creat if needed. Also rise of JORGE is mostly related with Acute Pneumonia and CHF causing Hemodynamic issues and not necessarily lasix. This is not obstructive nor prerenal type. In elderly patient like her it does not take much to have JORGE when having acute illness/hemodynamic issues. She needs diuretics and I agree with Cardiology about restarting Diuretics--now lasix 80 daily. This may not be enough. She had only 2 urination after AM lasix and was darker ( not lasix mediated dilute urine ) She has had high K so I dont think she can really be on Both aldactone and JENNIFER/ARB. maybe one of them can be tried once she is on stable lasix dose Reviewed cardiology note. As long as Creat is around 2 no need to reflexively lower Diuretics. reviewed todays labs--CBC and renal panel. BUN creat same as yesterday. K normal. Na borderline low but acceptable. Concerning to see daily decline of hgb and is now 9. this does happen with anem ia worsening with infection (2) Acute on chronic diastolic (congestive) heart failure: Admission after lasix held for few days. Does need Diuretics. But till we see that she can handle lasix 80 do not restart Aldactone. She has had high K so I dont think she can really be on Both aldactone and JENNIFER/ARB. maybe one of them can be tried once she is on stable lasix dose (3) CKD (chronic kidney disease) stage 3, GFR 30-59 ml/min: baseline ckd 3b from Dm/HTN/Cardiac. But now is worsening CKD and worsened to more like CKD 4. No need of renal biopsy. need a higher baseline creat to allow for better volume Status and avoid Hospital admission (4) Pneumonia: Also playing big role in JORGE. S--feels breathing is better . However feels she has too much edema. She had 2 urination after AM lasix and was darker ( not lasix mediated dilute urine ) Physical Exam + obese; no acute distress Neck: No JVD Respiratory: normal respiratory effort Auscultation: + diminished lung sounds. no crackles and now wheezing Cardiovascular: regular rate and regular rhythm + murmur no JVD 1+ edema Gastrointestinal (Abdomen): soft, nontender Skin: no rashes, warm and dry Results & Data Results & Data Vital Signs (Past 12 Hours) Vital Signs Temp Pulse Pulse Resp BP BP Pulse Ox 05/27/24 16:03 05/27/24 15:59 36.3 C L 61 24 137/70 98 05/27/24 14:30 61 05/27/24 12:16 36.3 C L 67 20 115/71 95 05/27/24 09:19 05/27/24 08:53 64 05/27/24 08:13 36.5 C 65 19 127/74 98 Pulse Ox O2 Del Method O2 Del Method O2 Flow Rate O2 Flow Rate 05/27/24 16:03 98 Nasal Cannula 3 05/27/24 15:59 Nasal Cannula 3 05/27/24 14:30 05/27/24 12:16 Nasal Cannula 3 05/27/24 09:19 Nasal Cannula 3 05/27/24 08:53 05/27/24 08:13 Nasal Cannula 3
[2024-05-28 07:19] LABS: BUN Creatinine Ratio 28.1 (10-20); Calcium 8.8 mg/dl (8.6-10.3); Creatinine Clr Calc Pharmacy 31.4 ml/min; Est GFR (African American) 34.7 ml/min; Est GFR (Non-African American) 29.9 ml/min; Potassium 4.2 mmol/L (3.5-5.1)
[2024-05-28 07:29] LABS: INR 3.1 (0.9-1.1); Prothrombin Time 30.5 Seconds (9.0-12.0)
--- NOTE | 2024-05-28 10:17 | Nephrology Progress Note ---
Date of Service May 28, 2024 Assessment & Plan Admission and Anticipated Discharge Date Admission Date: May 23, 2024 Subjective Assessment & Plan (1) JORGE (acute kidney injury): patient has underlying CKD likely from DM.HTN/cardiac Dz with rising baseline creat recently. Given hospital admission recurrence for CHF she does have a obligatory need of Diuretics. this means a higher baseline creat if needed. Also rise of JORGE is mostly related with Acute Pneumonia and CHF causing Hemodynamic issues and not necessarily lasix. This is not obstructive nor prerenal type. In elderly patient like her it does not take much to have JORGE when having acute illness/hemodynamic issues. She needs diuretics and I agree with Cardiology about restarting Diuretics--now lasix 80 daily. This may not be enough. I would recommend raising the lasix dose to 80 AM and 40 P but defer to cardiology as she is closely followed by cards She has had high K so I dont think she can really be on Both aldactone and JENNIFER/ARB. maybe one of them can be tried once she is on stable lasix dose Reviewed cardiology note. As long as Creat is around 2 no need to reflexively lower Diuretics. reviewed todays labs--CBC and renal panel. BUN creat better than yesterday. K normal. Na borderline low but acceptable. Concerning to see daily decline of hgb and is now 9. this does happen with anemia worsening with infection (2) Acute on chronic diastolic (congestive) heart failure: Admission after lasix held for few days. Does need Diuretics. But till we see that she can handle lasix 80 do not restart Aldactone. She has had high K so I dont think she can really be on Both aldactone and JENNIFER/ARB. maybe one of them can be tried once she is on stable lasix dose (3) CKD (chronic kidney disease) stage 3, GFR 30-59 ml/min: baseline ckd 3b from Dm/HTN/Cardiac. But now is worsening CKD and worsened to more like CKD 4. need a higher baseline creat to allow for better volume Status and avoid Hospital admission (4) Pneumonia: Also playing big role in JORGE. S--feels breathing is better . Stable edema. No new issues Physical Exam + obese; no acute distress Neck: No JVD Respiratory: normal respiratory effort Auscultation: + diminished lung sounds. no crackles and now wheezing Cardiovascular: regular rate and regular rhythm + murmur no JVD 1+ edema Gastrointestinal (Abdomen): soft, nontender Skin: no rashes, warm and dry Results & Data Vital Signs (Past 12 Hours) Vital Signs Temp Pulse Pulse Resp BP BP Pulse Ox 05/28/24 09:32 60 05/28/24 07:41 36.4 C L 58 L 18 116/66 96 05/28/24 07:20 05/28/24 04:34 37.0 C 66 17 118/57 L 98 05/28/24 00:01 37.0 C 66 17 116/62 98 O2 Del Method O2 Flow Rate 05/28/24 09:32 05/28/24 07:41 Nasal Cannula 05/28/24 07:20 Nasal Cannula 3 05/28/24 04:34 Nasal Cannula 3 05/28/24 00:01 Nasal Cannula 3
--- NOTE | 2024-05-28 10:32 | Pharmacy Report ---
Pharmacy Glycemic Short Note 2 - Date of Service May 28, 2024 - Glycemic Short BSG Results (Last 24 hours): 05/27/24 05/27/24 05/27/24 11:38 15:43 20:46 Glucose POC Glucose 261 H 71 163 H 05/28/24 05/28/24 06:27 07:02 Glucose 130 H POC Glucose 129 H OUTPATIENT ANTIDIABETIC REGIMEN: * Tresiba 40 units SC HS * Novolog 10 unit SC BIDM * HbA1c: 8.8% (05/12/24) ASSESSMENT: 05/28 * Fani received 60 units of insulin yesterday (35 were basal) * Fasting BSG this AM within goal range, continue current basal regimen. She remains on azithromycin and cefepime. * BSGs trend high at lunch, yesterday at dinner BSG below goal range, concern for overcorrection, will loosen correction factor to prevent lows and tighten carbohydrate ratio to reduce highs. 05/26: * BSGs yesterday were: 236-640-131-120 mg/dL. Patient received 40 units basal + 25 units bolus. * Fasting BSG was 99 mg/dL this AM. Stressors remain stable. Remains on azithromycin and cefepime. Tolerating diet. Will reduce basal by ~15% this evening. * No change to Novolog at this time. 05/24: * Total insulin given 05/23 was 63 units including the 10units of iv regular insulin (40 units of basal insulin) * Basal insulin to remain the same due to fasting BG of 149 this morning * Will tighten correction factor and CHO ratio starting with the lunch dose today due to elevated lunchtime bg level (257mg/dL) 05/23: * NATIVIDAD is an 79 year old female admitted w/ acute CHF exacerbation/pneumonia * Blood sugar in ED > 400 mg/dL, given 10 units of IV regular insulin and 40 units of SC basal, improvement noted at lunchtime (blood sugar of 190 mg/dL) * On cefepime and azithromycin (mixed in dextrose) * Diet ordered PLAN FOR INPATIENT GLYCEMIC CONTROL: * Basal insulin * Lantus 35 units SC HS * Bolus insulin * NovoLog per scale ACHS or Q6hrs while NPO * Goal Range: Low 110 mg/dL - High 140 mg/dL * Correction Factor: 25 mg/dL/unit * Nutritional / Prandial insulin per carb ratio of 1 unit per 5 grams CHO consumed
--- NOTE | 2024-05-28 11:01 | Cardiology Progress Note ---
Date of Service May 28, 2024 Assessment & Plan (1) Acute on chronic diastolic (congestive) heart failure: (2) Pneumonia: (3) S/P MVR (mitral valve replacement): (4) JORGE (acute kidney injury): Plan 05/23/24: 79 year old female with past medical history of rheumatic valvular disease s/p mechanical MVR in 2000, CAD s/p stents, atrial fibrillation, HTN, HLD, DM 2, hx CVA, CKD, chronic respiratory failure on 3L, who presents with worsening shortness of breath and edema. Diuretics held for 4 days after recent hospital admission due to JORGE. - on exam today continues to have shortness of breath, edema, chills - Chest CT with small left pleural effusion, right upper lobe and left lower lobe pneumonia - BNP 270, mildly hypervolemic on exam - symptoms consistent with acute on chronic heart failure in setting of acute pneumonia - antibiotics per primary - continue furosemide IV 40 BID, spironolactone 25 mg daily - strict I and Os, daily weights, 2 L fluid restriction and 2 gm sodium restriction - monitor electrolytes and kidney function - monitor on telemetry 05/24/24: -Interval improvement in patient's respiratory status and volume status this morning after receiving 24+ hours of antibiotics and several doses of IV lasix. -Weight down 5 kg since admission -Creatinine trending upward from 1.5 to 1.8 this morning. -Hold PM dose of furosemide -continue spironolactone -Continue antibiotics for pneumonia. -Daily weight with standing scale. -Stop diltiazem given recurrent admission for CHF/edema and increase metoprolol to 50 mg BID. -Continue anticoagulation with Coumadin. INR goal 2.5 to 3.5 Given mechanical valve. INR 2.4 this morning. 05/25/24: -Respiratory status improved from admission. -Continue antibiotics for pneumonia per hospitalist. Consider repeat chest xray -Volume status improved. Weight continues to trend downward. Improved dyspnea/ edema. -Unfortunately with IV diuretics creatinine trended upward from 1.5 to 1.8 and now 2.0. -She did not receive diuretics this morning. Hold furosemide and spironolactone. -Repeat labs in AM. -BP controlled. Continue higher dose metoprolol at 50 mg BID (Diltiazem stopped) -Continue anticoagulation with Coumadin. INR at goal at 2.7 Continue plavix, zetia, atorvastatin. 9/18/24: Interval improvement of respiratory status since admission. Appears euvolemic. Diuretics remain on hold given renal insufficiency. Hyponatremia also noted. repeat labs pending BP controlled. INR therapeutic at 3.2 Continue home meds including metoprolol, plavix, zetia, atorvastatin. Diltazem discontinued. Consider nephrology consult if creatinine or hyponatremia does not improve She will likely require at least low dose diuretic on discharge. Last admission diuretics were held on discharge and she had recurrent admission with HF 05/27/24: Furosemide 80 mg PO resumed yesterday due to worsening volume status. edema subjectively improved. SOB at baseline. Creatinine minimally improved at 1.9. Spironolactone remains on hold. Per nephrology, would remain off spironolactone for now Supplement potassium as needed. INR therapeutic at 3.8. Trending upward. Hold coumadin today. Finish antibiotics for pneumonia per hospitalist. Blood culture remain negative. PT/OT recommended. Consider rehab? Continue all other home medications 05/28/24: Patient's volume status improved since resuming oral furosemide 80 mg daily. Creatinine also improved. Appreciate nephrology recommendations. She may ultimately need higher dose furosemide 80 mg in AM and 40 mg in PM. Good urine outputs over the last 24 hours on furosemide 80 mg daily. Would continue. Appears euvolemic currently. Will not increase. Avoidance of JENNIFER/ARB AND spironolactone given borderline hyperkalemia. Per nephrology, consider resuming one therapy at a time once on stable lasix dose. Currently not taking either. INR therapeutic. Resume coumadin Complete antibiotics per hospitalist. Would recommend PT/OT and consider rehab. Patient resumed oral cardiac medications. Will sign off. Will need close cardiology f/u within 2 weeks to monitor fluid status. Will arrange Case discussed with Dr. Madsen I spent a total of 35 minutes on the date of service in preparation, delivery, and documentation of the care provided to this patient, excluding any time spent in the performance of separately billed services. Kym Brady PA-C Department of Cardiology, [facility] This chart was completed in part utilizing Speech Voice Recognition Software. Grammatical errors, random word insertions, pronoun errors, and incomplete sentences are an occasional consequence of this system due to software limitations, ambient noise, and hardware issues. Any formal questions or concerns about the content, text, or information contained within the body of this dictation should be directly addressed to the provider for clarification. . Admission and Anticipated Discharge Date Admission Date: May 23, 2024 Supervising Physician Co-Signing Physician Notes Attending attestation: Case reviewed with the advanced practitioner. I have personally performed a history and physical examination on the patient. I have reviewed the advanced practitioner's documentation on the date of service referenced in note, and I agree with, and take responsibility for the plan of ca re. Creatinine improved today on prior to hospital dose of furosemide 80 mg p.o. daily. She remains off of the spironolactone and ACEI / ARB. Nephrology input noted and appreciated. You could consider p.m. dose of furosemide 40 mg, but at present, it appears the 80 mg may be sufficient. Future considerations include placing her back on low-dose spironolactone, or adding back JENNIFER/ARB, but not both. For now we will just continue furosemide 80 mg p.o. daily. Cardiology to sign off. Call with questions or concerns. I spent a total of 20 minutes coordinating, documenting, and providing care for this patient excluding time spent in the performance of separately billed services or time spent by another provider. Jose Madsen, DO Subjective Patient resting in bed. Reports feeling "better" today. SOB improved and returning to baseline. No fever, cough, chills. Edema also improved compared to yesterday. Review of Systems Review of Systems: All systems reviewed & are unremarkable except as noted in HPI & below Physical Exam Constitutional: WD/WN, vitals as above + obese; no acute distress Neck: trachea midline, no thyromegaly Respiratory: normal respiratory effort Auscultation: + diminished lung sounds; no crackles, no rales and no rhonchi Cardiovascular: Rate/Rhythm: regular rate and regular rhythm Heart Sounds: + murmur (II/ crisp mechanical click) Vessels: no JVD Extremities: no edema Gastrointestinal (Abdomen): normal bowel sounds, soft, nontender, no hepatosplenomegaly Musculoskeletal: no cyanosis or clubbing, extremities motor strength 5/5 Skin: no rashes, warm and dry Results & Data Vital Signs (Past 12 Hours) Vital Signs Temp Pulse Pulse Resp BP BP Pulse Ox 05/28/24 09:32 60 05/28/24 07:41 36.4 C L 58 L 18 116/66 96 05/28/24 07:20 05/28/24 04:34 37.0 C 66 17 118/57 L 98 05/28/24 00:01 37.0 C 66 17 116/62 98 O2 Del Method O2 Flow Rate 05/28/24 09:32 05/28/24 07:41 Nasal Cannula 05/28/24 07:20 Nasal Cannula 3 05/28/24 04:34 Nasal Cannula 3 05/28/24 00:01 Nasal Cannula 3 Laboratory Results Coagulation 05/28/24 Range/Units 06:27 PT 30.5 H (9.0-12.0) Seconds Comprehensive Metabolic Panel 05/28/24 Range/Units 06:27 Sodium 137 (136-145) mmol/L Potassium 4.2 (3.5-5.1) mmol/L Chloride 100 (98-107) mmol/L Carbon Dioxide 30 (21-32) mmol/L BUN 45 H (6-23) mg/dl Creatinine 1.60 H D (0.6-1.2) mg/dl Glucose 130 H (70-99(Fasting)) mg/dl Calcium 8.8 (8.6-10.3) mg/dl Intake and Output 05/27/24 05/28/24 05/28/24 22:59 06:59 14:59 Intake Total 600 / 855 Output Total 200 / 1075 675 / 1075 Balance 400 / -220 -675 / -220 Intake: Oral 600 / 600 Output: Urine 200 / 400 Urine Amount (Catheter) 675 / 675 External 675 / 675 # Bowel Movements 0 / 0 Other: Weight 102 kg Diagnostic Findings Telemetry reviewed: Paced/afib -rates in the 60-70's Medications Administered Current Inpatient Medications Acetaminophen (Acetaminophen 325 Mg Tab) 650 mg PO Q4H PRN PRN Reason: Pain or Fever Stop: 06/22/24 04:21 Last Admin: 05/24/24 12:53 Dose: 650 mg Albuterol (Albuterol 0.083% Nebu Soln 3 Ml Vial) 2.5 mg INH QID PRN; Protocol PRN Reason: Shortness Of Breath Or Wheezing Stop: 06/22/24 04:21 Albuterol (Albuterol Hfa 8 Gm Inhaler) 2 puffs INH Q4H PRN PRN Reason: Shortness Of Breath Or Wheezin Stop: 06/22/24 04:21 Atorvastatin Calcium (Atorvastatin 40 Mg Tab) 40 mg PO DAILY GABBI Stop: 06/22/24 08:59 Last Admin: 05/28/24 08:25 Dose: 40 mg Clopidogrel Bisulfate (Clopidogrel Bisulfate 75 Mg Tab) 75 mg PO DAILY GABBI Stop: 06/22/24 08:59 Last Admin: 05/28/24 08:26 Dose: 75 mg Dextrose (Dextrose 50% 50 Ml Syringe) 25 - 50 ml IV UD PRN; Protocol PRN Reason: Hypoglycemia Protocol Stop: 06/22/24 04:21 Ezetimibe (Ezetimibe 10 Mg Tab) 10 mg PO DAILY GABBI Stop: 06/22/24 08:59 Last Admin: 05/28/24 08:25 Dose: 10 mg Fluoxetine HCl (Fluoxetine Hcl 20 Mg Cap) 20 mg PO DAILY GABBI Stop: 06/22/24 08:59 Last Admin: 05/28/24 08:26 Dose: 20 mg Fluticasone Furoate (Fluticasone Furoate 100mcg 14 Puffs/Inhaler) 1 puffs INH DAILY GABBI Stop: 06/22/24 08:59 Last Admin: 05/28/24 08:27 Dose: 1 puffs Furosemide (Furosemide 80 Mg Tab) 80 mg PO QAM GABBI Stop: 06/26/24 08:59 Last Admin: 05/28/24 08:27 Dose: 80 mg Glucagon (Glucagon For Inj 1 Mg Vial) 1 mg SQ UD PRN; Protocol PRN Reason: Hypoglycemia Protocol Stop: 06/22/24 04:21 Glucose (Glucose 40% Gel 15 Gm Tube) 15 - 30 gm PO UD PRN; Protocol PRN Reason: Hypoglycemia Protocol Stop: 06/22/24 04:21 Glucose (Glucose 10 Tab/Tube) 4 - 8 tab PO UD PRN; Protocol PRN Reason: Hypoglycemia Treatment Stop: 06/22/24 04:21 Azithromycin 500 mg/ Dextrose 255 mls @ 125 mls/hr IV Q24H GABBI; Protocol Stop: 05/28/24 10:59 Last Infusion: 05/27/24 13:02 Dose: Infused Cefepime HCl 1,000 mg/ Syringe 10 mls @ 5 mls/min IV Q12H GABBI; Protocol Stop: 05/30/24 11:59 Last Admin: 05/28/24 01:15 Dose: 5 mls/min Insulin Aspart (Insulin Aspart Per Unit Charge) 0 units SC ACHS GABBI Stop: 06/22/24 07:29 Last Admin: 05/28/24 08:24 Dose: 11 units Insulin Glargine (Lantus Per Unit Charge) 35 units SQ HS GABBI Stop: 06/25/24 20:59 Last Admin: 05/27/24 22:01 Dose: 35 units Metoprolol Succinate (Metoprolol Succ 50mg Ext Rel Tab) 50 mg PO BID GABBI Stop: 06/23/24 20:59 Last Admin: 05/28/24 08:26 Dose: 50 mg Miscellaneous (Carbohydrates For Hypoglycemia ) 15 - 30 gm PO UD PRN PRN Reason: Hypoglycemia Protocol Stop: 06/22/24 04:21 Miscellaneous Information (Pharmacy Glycemic Mgmt Consult) 1 each N/A UD PRN; Protocol PRN Reason: Consult Stop: 06/22/24 07:48 Nitroglycerin (Nitroglycerin Sl 0.4 Mg/Tab Tab) 0.4 mg SL Q5M PRN PRN Reason: Chest Pain Stop: 06/22/24 04:21 Nystatin (Nystatin Powder 15gm Btl) 1 appln EXT BID [facility] Stop: 06/22/24 20:59 Last Admin: 05/28/24 08:29 Dose: Not Given Ondansetron HCl (Ondansetron Inj 2 Mg/Ml 2 Ml Vial) 4 mg IV Q6H PRN PRN Reason: Nausea Stop: 06/22/24 04:21 Pantoprazole Sodium (Pantoprazole 40 Mg Tab) 40 mg PO DAILY [facility] Stop: 06/22/24 08:59 Last Admin: 05/28/24 08:25 Dose: 40 mg Trazodone HCl (Trazodone Hcl 50 Mg Tab) 50 mg PO HS [facility] Stop: 06/22/24 20:59 Last Admin: 05/27/24 21:59 Dose: 50 mg Umeclidinium/Vilanterol (Umeclidinium/Vilanterol 62.5/25mcg 7 Puffs/Inhaler) 1 puffs INH DAILY [facility] Stop: 06/22/24 08:59 Last Admin: 05/28/24 08:27 Dose: 1 puffs Warfarin Sodium (Warfarin Sod 2.5 Mg Tab) 2.5 mg PO [email or web address] [facility] Stop: 06/23/24 15:59 Last Admin: 05/26/24 16:58 Dose: 2.5 mg Warfarin Sodium (Warfarin Sod 5 Mg Tab) 5 mg PO [id number] [facility] Stop: 06/22/24 15:59 Last Admin: 05/25/24 17:30 Dose: 5 mg (2) Pneumonia Laterality: bilateral Lung location: unspecified part of lung Pneumonia type: due to unspecified organism Qualified Code(s): J18.9 - Pneumonia, unspecified organism
--- NOTE | 2024-05-28 18:59 | Hospitalist Progress Note ---
Date of Service May 28, 2024 Assessment & Plan (1) Acute on chronic diastolic (congestive) heart failure: Plan: Ms. Moreno is an 79 year-old female with multiple comorbidities including mitral valve replacement with mechanical prosthesis in 2000 underlying ischemic heart disease and atrial fibrillation who is admitted for acute on chronic heart failure with preserved EF. Imaging revealed right upper and left lower lobe pneumonia/consolidations, with left pleural effusion Temp elevated to 37.9 on admission. Procal normal, however, given recent admission will cover empirically for bacterial pneumonia. Patient improving subjectively. #Abnormal CT c/f pneumonia #SOB #Chronic respiratory failure, 3L NC #COPD Recent hospitalization 05/10/2024, pseudomonas risk factor UA negative Procal 0.08, however, given fever and imaging findings will cover empirically Discharged with transient hold on diuretics. Consolidations on CT c/f pneumonia -Continue Azithromycin and Cefepime IV -consider deescalation -sputum cultures if able -NGTD on blood culures -Continue home inhalers and nebs prn Monitor O2 saturations 05/26 Clinically improving Back to baseline of 3 L by nasal cannula Continue cefepime plus azithromycin Continue usual inhalers 05/28 continues to improve continue abx #JORGE on CKD stage III Baseline creatinine 1.6 uptrending after diuretics, appears a little dry with elevated bun/cr, s/p small bolus Repeat BMP Hold diuretics and spironolactone If up trending consider Nephrology 05/26 crea still at 1.9 will consult Nephro 05/28 crea improved to 1.6 monitor while on Lasix 80mg po #Acute on chronic heart failure with preserved EF -pleural effusion noted on imaging with slight edema -diuretics held for 4 days, BNP 2240 Cardiology on consult -Hold furosemide IV 40 BID, -Hold spironolactone 25 mg daily - strict I and Os, daily weights, 2 L fluid restriction and 2 gm sodium restriction - monitor electrolytes and kidney function qam - monitor on telemetry 05/26 Still with bilateral lower extremity edema, creatinine has slightly improved compared to yesterday Will consult nephrology for diuretic management recommendations 05/28 improving continue Lasix #Chronic atrial fibrillation #SSS s/p pacemaker #Mitral valve replacement with mechanical prosthesis in 2000 continue warfarin Trend INR iso antibiotics -Goal is 2.5-3.5 INR -Discontinue Diltiazem, given HF -Toprol xl 50mg daily 05/26 INR 3.2 05/28 INR 3.1 #CAD s/p stents On statin, Plavix, and metoprolol succinate #Type 2 diabetes Hyperglycemia Continue home long-acting insulin Sliding scale Glycemic pharmacy consult Close monitor #Hypomagnesia Replace Follow labs #Hyperlipidemia On statin DVT prophylaxis On Coumadin follow PT/INR Disposition Full Code Admission and Anticipated Discharge Date Admission Date: May 23, 2024 Subjective Seen resting in bed, sitting up, in good spirits States she feels better today than yesterday No shortness of breath, leg swelling improving No other new symptoms Review of Systems Review of Systems: all noted and negative except for above Physical Exam Physical Exam: General- oriented x 3, not in distress, speaks in sentences with no effort or accessory muscle use Eyes- anicteric Neck- no JVD Lungs- clear breath sounds bilaterally, no crackles/wheezing Heart- normal rate, regular rhythm; no murmurs Abdomen- normal bowel sounds, nondistended, soft, no tenderness Extremities- mild pretibial edema, no calf tenderness Neuro- alert, oriented x 3; no gross focal neurologic deficits Skin- warm & dry Results & Data Results & Data Vital Signs (Past 12 Hours) Vital Signs Temp Pulse Pulse Resp BP BP Pulse Ox 05/28/24 16:36 64 05/28/24 16:03 36.7 C 65 18 124/68 98 05/28/24 15:53 05/28/24 11:55 36.7 C 65 18 131/67 95 05/28/24 09:32 60 05/28/24 07:41 36.4 C L 58 L 18 116/66 96 05/28/24 07:20 Pulse Ox O2 Del Method O2 Del Method O2 Flow Rate 05/28/24 16:36 05/28/24 16:03 Nasal Cannula 3.0 05/28/24 15:53 95 Room Air 05/28/24 11:55 Room Air 3 05/28/24 09:32 05/28/24 07:41 Nasal Cannula 05/28/24 07:20 Nasal Cannula 3 all noted and reviewed including below
[2024-05-28] MEDS: CEFEPIME 2,000 MG in SYRINGE 0 ML IV SCH (23:44)
[2024-05-29 06:38] LABS: INR 2.4 (0.9-1.1); Prothrombin Time 24.3 Seconds (9.0-12.0)
--- NOTE | 2024-05-29 17:18 | Hospitalist Progress Note ---
Date of Service May 29, 2024 Assessment & Plan (1) Acute on chronic diastolic (congestive) heart failure: Plan: Ms. Moreno is an 79 year-old female with multiple comorbidities including mitral valve replacement with mechanical prosthesis in 2000 underlying ischemic heart disease and atrial fibrillation who is admitted for acute on chronic heart failure with preserved EF. Imaging revealed right upper and left lower lobe pneumonia/consolidations, with left pleural effusion Temp elevated to 37.9 on admission. Procal normal, however, given recent admission will cover empirically for bacterial pneumonia. Patient improving subjectively. #Abnormal CT c/f pneumonia #SOB #Chronic respiratory failure, 3L NC #COPD Recent hospitalization 05/10/2024, pseudomonas risk factor UA negative Procal 0.08, however, given fever and imaging findings will cover empirically Discharged with transient hold on diuretics. Consolidations on CT c/f pneumonia -Continue Azithromycin and Cefepime IV -consider deescalation -sputum cultures if able -NGTD on blood culures -Continue home inhalers and nebs prn Monitor O2 saturations 05/26 Clinically improving Back to baseline of 3 L by nasal cannula Continue cefepime plus azithromycin Continue usual inhalers 05/28 continues to improve continue abx 05/29 Continues to improve Continue antibiotics #JORGE on CKD stage III Baseline creatinine 1.6 uptrending after diuretics, appears a little dry with elevated bun/cr, s/p small bolus Repeat BMP Hold diuretics and spironolactone If up trending consider Nephrology 05/26 crea still at 1.9 will consult Nephro 05/28 crea improved to 1.6 monitor while on Lasix 80mg po #Acute on chronic heart failure with preserved EF -pleural effusion noted on imaging with slight edema -diuretics held for 4 days, BNP 2240 Cardiology on consult -Hold furosemide IV 40 BID, -Hold spironolactone 25 mg daily - strict I and Os, daily weights, 2 L fluid restriction and 2 gm sodium restriction - monitor electrolytes and kidney function qam - monitor on telemetry 05/26 Still with bilateral lower extremity edema, creatinine has slightly improved compared to yesterday Will consult nephrology for diuretic management recommendations 05/28 improving continue Lasix 05/29 improving on PO Lasix monitor crea #Chronic atrial fibrillation #SSS s/p pacemaker #Mitral valve replacement with mechanical prosthesis in 2000 continue warfarin Trend INR iso antibiotics -Goal is 2.5-3.5 INR -Discontinue Diltiazem, given HF -Toprol xl 50mg daily 05/26 INR 3.2 05/28 INR 3.1 05/29 INR 2.4 continue coumadin- to receive 5mg today #CAD s/p stents On statin, Plavix, and metoprolol succinate #Type 2 diabetes Hyperglycemia Continue home long-acting insulin Sliding scale Glycemic pharmacy consult Close monitor #Hypomagnesia Replace Follow labs #Hyperlipidemia On statin DVT prophylaxis On Coumadin follow PT/INR Disposition Full Code Admission and Anticipated Discharge Date Admission Date: May 23, 2024 Subjective Seen resting in bed, watching TV, comfortable, in good spirits States she continues to feel improved overall Breathing is improving, no leg pain No other new symptom Review of Systems Review of Systems: all noted and negative except for above Physical Exam Physical Exam: General- oriented x 3, not in distress, speaks in sentences with no effort or accessory muscle use Eyes- anicteric Neck- no JVD Lungs- clear breath sounds bilaterally, no rales/wheezes Heart- normal rate, regular rhythm; no murmurs Abdomen- normal bowel sounds, nondistended, soft, nontender Extremities- mild pretibial edema, no calf tenderness Neuro- alert, oriented x 3; no gross focal neurologic deficits Skin- warm & dry Results & Data Results & Data Vital Signs (Past 12 Hours) Vital Signs Temp Pulse Pulse Resp BP Pulse Ox O2 Del Method 05/29/24 15:28 36.8 C 64 18 109/58 L 98 Nasal Cannula 05/29/24 13:38 61 05/29/24 11:20 36.7 C 80 18 167/82 H 96 Nasal Cannula 05/29/24 11:06 36.4 C L 69 18 125/73 96 Nasal Cannula 05/29/24 10:41 Nasal Cannula 05/29/24 07:34 71 05/29/24 07:06 36.9 C 65 18 110/69 99 Nasal Cannula O2 Flow Rate 05/29/24 15:28 3 05/29/24 13:38 05/29/24 11:20 05/29/24 11:06 3 05/29/24 10:41 3 05/29/24 07:34 05/29/24 07:06 3 all noted and reviewed including below
[2024-05-29] MEDS: ADVANCED PROBIOTIC 625 MG CAPSULE PO SCH (18:37)
[2024-05-30 06:42] LABS: INR 2.2 (0.9-1.1); Prothrombin Time 22.7 Seconds (9.0-12.0)
[2024-05-30 06:43] LABS: BUN Creatinine Ratio 23.4 (10-20); Calcium 8.5 mg/dl (8.6-10.3); Creatinine Clr Calc Pharmacy 27.5 ml/min; Est GFR (African American) 29.3 ml/min; Est GFR (Non-African American) 25.3 ml/min; Potassium 4.4 mmol/L (3.5-5.1)
[2024-05-30] MEDS ORDERED: CALCIUM CARBONATE 500 MG CHEWABLE TAB PO PRN (15:57)
--- NOTE | 2024-05-30 17:56 | Hospitalist Progress Note ---
Date of Service May 30, 2024 Assessment & Plan (1) Acute on chronic diastolic (congestive) heart failure: Plan: Ms. Moreno is an 79 year-old female with multiple comorbidities including mitral valve replacement with mechanical prosthesis in 2000 underlying ischemic heart disease and atrial fibrillation who is admitted for acute on chronic heart failure with preserved EF. Imaging revealed right upper and left lower lobe pneumonia/consolidations, with left pleural effusion Temp elevated to 37.9 on admission. Procal normal, however, given recent admission will cover empirically for bacterial pneumonia. Patient improving subjectively. #Abnormal CT c/f pneumonia #SOB #Chronic respiratory failure, 3L NC #COPD Recent hospitalization 05/10/2024, pseudomonas risk factor UA negative Procal 0.08, however, given fever and imaging findings will cover empirically Discharged with transient hold on diuretics. Consolidations on CT c/f pneumonia -Continue Azithromycin and Cefepime IV -consider deescalation -sputum cultures if able -NGTD on blood culures -Continue home inhalers and nebs prn Monitor O2 saturations 05/26 Clinically improving Back to baseline of 3 L by nasal cannula Continue cefepime plus azithromycin Continue usual inhalers 05/28 continues to improve continue abx 05/30 Continues to improve Continue antibiotics #JORGE on CKD stage III Baseline creatinine 1.6 uptrending after diuretics, appears a little dry with elevated bun/cr, s/p small bolus Repeat BMP Hold diuretics and spironolactone If up trending consider Nephrology 05/26 crea still at 1.9 will consult Nephro 05/30 crea 1.6-1.8 monitor while on Lasix 80mg po #Acute on chronic heart failure with preserved EF -pleural effusion noted on imaging with slight edema -diuretics held for 4 days, BNP 2240 Cardiology on consult -Hold furosemide IV 40 BID, -Hold spironolactone 25 mg daily - strict I and Os, daily weights, 2 L fluid restriction and 2 gm sodium restriction - monitor electrolytes and kidney function qam - monitor on telemetry 05/26 Still with bilateral lower extremity edema, creatinine has slightly improved compared to yesterday Will consult nephrology for diuretic management recommendations 05/28 improving continue Lasix 05/29 improving on PO Lasix monitor crea 05/30 improving continue Lasix PO #Chronic atrial fibrillation #SSS s/p pacemaker #Mitral valve replacement with mechanical prosthesis in 2000 continue warfarin Trend INR iso antibiotics -Goal is 2.5-3.5 INR -Discontinue Diltiazem, given HF -Toprol xl 50mg daily 05/26 INR 3.2 05/28 INR 3.1 05/29 INR 2.4 continue coumadin- to receive 5mg today 05/30 INR 2.2 additional coumadin 5mg today #CAD s/p stents On statin, Plavix, and metoprolol succinate #Type 2 diabetes Hyperglycemia Continue home long-acting insulin Sliding scale Glycemic pharmacy consult Close monitor #Hypomagnesia Replace Follow labs #Hyperlipidemia On statin DVT prophylaxis On Coumadin follow PT/INR Disposition Full Code Admission and Anticipated Discharge Date Admission Date: May 23, 2024 Subjective Resting in bed, comfortable, good spirits States she continues to feels fine overall No chest pain, shortness of breath No other new symptoms Review of Systems Review of Systems: all noted and negative except for above Physical Exam Physical Exam: General- oriented x 3, not in distress, speaks in sentences with no effort or accessory muscle use Eyes- anicteric Neck- no JVD Lungs- clear breath sounds bilaterally, No crackles or wheezing Heart- normal rate, regular rhythm; no murmurs Abdomen- normal bowel sounds, nondistended, soft, No tenderness Extremities- no pretibial edema, no calf tenderness Neuro- alert, oriented x 3; no gross focal neurologic deficits Skin- warm & dry Results & Data Results & Data Vital Signs (Past 12 Hours) Vital Signs Temp Pulse Pulse Resp BP Pulse Ox O2 Del Method 05/30/24 15:12 36.6 C 65 18 122/57 L 96 Nasal Cannula 05/30/24 11:40 36.9 C 70 18 134/75 99 Nasal Cannula 05/30/24 10:31 Room Air 05/30/24 07:25 36.6 C 71 18 124/73 100 Nasal Cannula 05/30/24 06:51 61 O2 Flow Rate 05/30/24 15:12 3 05/30/24 11:40 3 05/30/24 10:31 05/30/24 07:25 3 05/30/24 06:51 all noted and reviewed including below
[2024-05-30] MEDS: WARFARIN SOD 5 MG TAB PO ONE (18:37)
[2024-05-31 07:12] VITALS: RESP 18; TEMP 97.9
[2024-05-31 07:25] LABS: INR 2.9 (0.9-1.1)
--- NOTE | 2024-05-31 10:07 | Pharmacy Report ---
Pharmacy Glycemic Short Note 2 - Date of Service May 31, 2024 - Glycemic Short BSG Results (Last 24 hours): 05/30/24 05/30/24 05/30/24 11:24 16:14 21:35 POC Glucose 156 H 137 H 116 H 05/31/24 07:11 POC Glucose 75 OUTPATIENT ANTIDIABETIC REGIMEN: * Tresiba 40 units SC HS * Novolog 10 unit SC BIDM * HbA1c: 8.8% (05/12/24) ASSESSMENT: 05/31 * 53 units SQ insulin admin over last 24 hours while tolerating a diet * Fasting BSG 75 this AM w/ 35 units basal on board - will reduce * Post-prandial BSGs at goal yesterday w/ current Novolog CR/CF - will continue 05/28 * Fani received 60 units of insulin yesterday (35 were basal) * Fasting BSG this AM within goal range, continue current basal regimen. She remains on azithromycin and cefepime. * BSGs trend high at lunch, yesterday at dinner BSG below goal range, concern for overcorrection, will loosen correction factor to prevent lows and tighten carbohydrate ratio to reduce highs. 05/26: * BSGs yesterday were: 151-118-884-120 mg/dL. Patient received 40 units basal + 25 units bolus. * Fasting BSG was 99 mg/dL this AM. Stressors remain stable. Remains on azithromycin and cefepime. Tolerating diet. Will reduce basal by ~15% this evening. * No change to Novolog at this time. PLAN FOR INPATIENT GLYCEMIC CONTROL: * Basal insulin * Lantus 28 units SC HS * Bolus insulin * NovoLog per scale ACHS or Q6hrs while NPO * Goal Range: Low 110 mg/dL - High 160 mg/dL * Correction Factor: 25 mg/dL/unit * Nutritional / Prandial insulin per carb ratio of 1 unit per 5 grams CHO consumed
[2024-05-31 11:55] VITALS: PULSE 63; O2SAT 100
--- NOTE | 2024-05-31 12:38 | Discharge Summary ---
Discharge Summary Date of Service May 31, 2024 Principal Dx & Hospital Course #1 = Principal Diagnosis (1) Acute on chronic diastolic (congestive) heart failure: Ms. Moreno is an 79 year-old female with multiple comorbidities including mitral valve replacement with mechanical prosthesis in 2000 underlying ischemic heart disease and atrial fibrillation who is admitted for acute on chronic heart failure with preserved EF. Imaging revealed right upper and left lower lobe pneumonia/consolidations, with left pleural effusion Pneumonia Chronic respiratory failure on 3 L of oxygen via nasal cannula COPD Recent hospitalization 05/10/2024, pseudomonas risk factor UA negative Procal 0.08, however, given fever and imaging findings will cover empirically Discharged with transient hold on diuretics. Consolidations on CT c/f pneumonia Blood cultures: Negative Patient received 1 week course of IV cefepime and azithromycin She gradually improved, returned to baseline of 3 L by nasal cannula Continue to monitor closely PT and OT #JORGE on CKD stage III Baseline creatinine 1.6 uptrending after diuretics, Held usual Lasix and Aldactone Creatinine gradually improved, 1.6-1.8 Usual Lasix 80 mg p.o. resumed Aldactone discontinued Nephrology consulted Repeat basic metabolic profile in 2 to 3 days, monitor closely #Acute on chronic heart failure with preserved EF -pleural effusion noted on imaging with slight edema -Initially given IV Lasix, creatinine increased, Lasix held, Creatinine subsequently improved, usual p.o. Lasix 80 mg daily resume Creatinine has remained stable since Aldactone discontinued Monitor volume status closely #Chronic atrial fibrillation #SSS s/p pacemaker #Mitral valve replacement with mechanical prosthesis in 2000 Diltiazem discontinued Continue Coumadin INR goal 2.5-3.5 given mechanical mitral valve INR on discharge today, 2.9 Repeat INR tomorrow, then monitor INR daily until stable #CAD s/p stents On statin, Plavix, and metoprolol succinate #Type 2 diabetes Continue usual regimen Monitor blood glucose #Hypomagnesia Replaced #Hyperlipidemia On statin Disposition Transition to nursing home facility today PCP follow-up in 1 week Cardiology follow-up Notes For Next Care Provider Medication Changes From Visit Diltiazem and spironolactone discontinued Metoprolol increased Admission HPI Per Admitting Provider 79-year-old female with past medical history significant for type 2 diabetes, CKD stage III, hyperlipidemia, history of hypokalemia, chronic respiratory failure with hypoxia on home oxygen 3 L 31/03, subclinical hypothyroidism, COPD, paroxysmal atrial fibrillation, chronic diastolic CHF, history of CAD s/p stents, morbid obesity, drug-induced constipation, GERD, degenerative disc disease, osteoporosis, chronic pain syndrome, depression, history of mitral valve replacement with mechanical valve, who lives at home with her son and family and ambulates mostly with a cane comes because of Shortness of breath. Patient was recently in the hospital with chest pain and echo was unremarkable and she was also treated for acute UTI and discharged on p.o. antibiotics to complete the course and advised to hold diuretics for 2 days for JORGE and follow- up with PCP comes because of shortness of breath today. Patient states she held her diuretics for last 4 days and since yesterday she is feeling short of breath. She also having fever with a lot of sweating. Has mild cough. No chest pain. No nausea. No abdominal pain. Normal bowel and bladder movements. No headache. No runny nose or sore throat. No earaches. Past medical history as mentioned above. Past surgical history. Cardiac stent placement. Appendectomy. . Cholecystectomy. Mitral valve replacement. Abdominal hysterectomy removal of tubes Social history. . Lives with her son and family. Quit smoking 2000. Smoked 1 pack a day for 44 years. Currently no alcohol use. No drug use. Family history. Sister had colon cancer. Diabetes. Brother has diabetes. Mother had diabetes. Hypertension. Father had hypertension and stroke. Daughter has A-fib and pacer. Admission Exam Per Admitting Provider General- Not in distress Head- atraumatic Eyes- PERRL. ENT- oropharynx clear Neck- supple, no JVD. Lungs- clear to auscultation bibasilar crackles present, no wheezing Heart- regular rate and rhythm; no murmur, no gallop. Abdomen- normal bowel sounds, soft, nontender, no distension Extremities- b/l lower extremity edema present no erythema seen Neuro- alert, oriented PERRL, no facial palsy; no dysarthria; moves extremities Discharge Exam General- oriented x 3, not in distress, speaks in sentences with no effort or accessory muscle use Eyes- anicteric Neck- no JVD Lungs- clear breath sounds bilaterally, no rales/wheezes Heart- normal rate, regular rhythm; no murmurs Abdomen- normal bowel sounds, nondistended, soft, nontender Extremities- no pretibial edema, no calf tenderness Neuro- alert, oriented x 3; no gross focal neurologic deficits Skin- warm & dry Updated Medication List Medication Instructions Recorded Confirmed Type albuterol sulfate 2.5 mg/3 mL 2.5 mg inhalation QID PRN 05/23/24 05/23/24 History (0.083 %) solution for nebulization Shortness Of Breath Or Wheezing albuterol sulfate 90 mcg/actuation 2 puff inhalation Q4H PRN 05/23/24 05/23/24 History aerosol inhaler (Ventolin HFA) Shortness Of Breath Or Wheezing atorvastatin 40 mg tablet 40 mg PO DAILY 05/23/24 05/23/24 History clopidogrel 75 mg tablet 75 mg PO DAILY 05/23/24 05/23/24 History ezetimibe 10 mg tablet 10 mg PO DAILY 05/23/24 05/23/24 History fluoxetine 20 mg capsule 20 mg PO DAILY 05/23/24 05/23/24 History fluticasone fur. 100 mcg-umeclid 1 inh inhalation DAILY 05/23/24 05/23/24 History 62.5 mcg-vilant 25 mcg inhalat.powder (Trelegy Ellipta) furosemide 40 mg tablet 80 mg PO DAILY 05/23/24 05/23/24 History insulin aspart U-100 100 unit/mL 10 unit subcut UD 05/23/24 05/23/24 History (3 mL) subcutaneous pen (Novolog FlexPen U-100 Insulin aspart) insulin degludec 100 unit/mL (3 40 unit subcut HS 05/23/24 05/23/24 History mL) subcutaneous pen (Tresiba FlexTouch U-100 insulin) omeprazole 20 mg capsule,delayed 20 mg PO DAILY 05/23/24 05/23/24 History release trazodone 50 mg tablet 50 mg PO HS 05/23/24 05/23/24 History warfarin 2.5 mg tablet 2.5 mg PO UD 05/23/24 05/23/24 History L.acidop,casei,lactis,rham-B.lact,billy 1 cap PO DAILY #30 caps 05/31/24 Rx 625 mg (10 billion cell) capsule (Advanced Probiotic) metoprolol succinate 50 mg 50 mg PO BID 30 days #60 tabs 05/31/24 Rx tablet,extended release 24 hr nystatin 100,000 unit/gram topical 1 applic EXT BID 7 days #15 grams 05/31/24 Rx powder (Nystop) Hospital Stay Data Consultations 05/23/24 01:44 ED Decision to Admit Stat 05/23/24 08:00 Consult Cardiology Routine 05/26/24 14:57 Consult Nephrology Routine Diagnostic Imagining Performed 05/23/24 04:22 CT chest diagnostic wo con Urgent Exam(s): CT CHEST Without Contrast EXAM: CT Chest Without Intravenous Contrast CLINICAL HISTORY: Reason for exam: sob, fever, chf. TECHNIQUE: Axial computed tomography images of the chest without intravenous contrast. Automated exposure control was utilized for the study. A dose lowering technique was utilized adhering to the principles of ALARA. COMPARISON: No relevant prior studies available. FINDINGS: Lungs: There is patchy consolidation seen in the left lower lobe and anterior segment of the right upper lobe. No mass. Pleural space: Small left pleural effusion. No pneumothorax. Heart: Mild cardiomegaly. Severe coronary vascular calcifications are seen. Mitral annular calcifications are seen. No significant pericardial effusion. Bones/joints: L1 which he will body compression fracture deformity seen with 60% loss of vertebral body height. No acute fracture. No dislocation. Lymph nodes: Unremarkable. No enlarged lymph nodes. IMPRESSION: 1. Small left pleural effusion 2. Right upper lobe and left lower lobe pneumonia. Electronically signed by: Parrish Crews MD 05/23/24 08:45 AM Dictated: 05/[id number] Transcribed: 05/23/24844 Discharge Instructions Given to Patient (Per Discharging Provider) Please refer to accompanying hospital discharge summary for full details. Total Time Total Time Spent Total Time Spent (In Minutes): 40 minutes
[2024-05-31 12:54] VITALS: BP 125/71
[2024-05-31] MEDS ORDERED: LANTUS PER UNIT CHARGE SQ SCH (21:00)
== END 2024-05-31 14:13 | DRG 291 ==
LOC: ED 23:40 → SUATTDRO 05-23 03:49 → EDINP 05-23 03:49 → 2S 05-23 04:22